=== PATIENT | male | born 1960 | race Caucasian/White ===

== ENCOUNTER 2018-02-10 16:25 | Inpatient (IN) | payer MEDICARE, MEDICAID ==
[2018-02-10] MEDS ORDERED: Ondansetron ODT 4 MG TAB SL PRN (16:30)
[2018-02-10] MEDS ORDERED: Ondansetron HCl/PF 4 MG/2 ML Vial IVP PRN (16:30)
[2018-02-10] MEDS ORDERED: Sodium Chloride 0.9% 1,000 ML IV SCH (16:30)
[2018-02-10 17:24] LABS: #Eosinphils 0.2 thou/uL (0.0-0.7); #Lymphocytes 0.9 thou/uL (1.20-3.40); #Monocytes 0.3 thou/uL (0.11-0.59); #Neutrophils 3.8 thou/uL (1.40-6.50); %Basophils 0.6 % (0.0-1.0); %Lymphocytes 17.7 % (21.0-51.0); %Monocytes 5.9 % (0.0-10.0); %Neutrophils 71.9 % (42.0-75.0); Hemoglobin 7.5 g/dL (14.0-18.0); Mean Corpuscular HGB CONC 30.8 g/dL (32.0-36.0); Mean Corpuscular Hemoglobin 29.4 pg (27.0-31.0); Mean Corpuscular Volume 95.6 fl (80.0-94.0); Mean Platelet Volume 8.7 fL (7.4-10.4); Platelet Count 149 thou/uL (130-400); RBC Distribution Width 16.6 % (11.5-14.5); Red Blood Cell (RBC) Count 2.54 mill/uL (4.70-6.10); White Blood Cell (WBC) Count 5.3 thou/uL (4.8-10.8)
[2018-02-10] MEDS ORDERED: Piperacillin/Tazobactam 4.5 GM VIAL ONE (17:32)
[2018-02-10 17:48] LABS: CKMB 2.9 ng/mL (0-6.6); Troponin I Less than 0.010 ng/mL (< 0.028)
[2018-02-10 17:52] LABS: ALT (SGPT) 8 U/L (8-55); AST (SGOT) 8 U/L (5-34); Alkaline Phosphatase 119 U/L (40-150); Anion Gap 15 mmol/L (10-20); BUN (Urea Nitrogen) 51 mg/dL (8.4-25.7); Bilirubin, Total 0.6 mg/dL (0.2-1.2); CK (CPK) 62 U/L (30-200); Calc. Creatinine Clearance 0 mL/min (70-130); Calcium 7.9 mg/dL (7.8-10.44); Carbon Dioxide 27 mmol/L (22-29); Chloride 100 mmol/L (98-107); Estimated GFR-MDRD 17; Globulin 3.2 g/dL (2.4-3.5); Glucose 155 mg/dL (70-105); Lipase 15 U/L (8-78); Potassium 4.7 mmol/L (3.5-5.1); Protein, Total 6.2 g/dL (6.0-8.3); Sodium 137 mmol/L (136-145)
--- NOTE | 2018-02-10 17:56 | RAD ---
PORTABLE AP CHEST X-RAY 02/10/18 HISTORY: Hypotension. COMPARISON: 07/04/17 FINDINGS: Patient is rotated to the left accentuating the cardiac silhouette and mediastinal structures. Howeve r, the cardiac silhouette does appear enlarged. This does result in suboptimal evaluation of the left lung base. There are linear and patchy densities at the right lung base which could be related to at electasis or developing area of pneumonitis. No obvious pleural effusion is appreciated. Vascular ana cifications seen in the thoracic aorta. No other interval change. IMPRESSION: 1. Linear and patchy parenchymal densities at the right lung base which may be related to atelec tasis, but a developing area of pneumonitis could not be entirely excluded. 2. Cardiomegaly. POS: [facility]
[2018-02-10 21:56] VITALS: BMI 59.7
[2018-02-10] MEDS ORDERED: Acetaminophen 650 MG Suppository PR PRN (22:15)
[2018-02-10] MEDS ORDERED: VANCOMYCIN/ RENALLY ADJUST ANTIBIOTICS IVPB PRN (22:21)
[2018-02-10] MEDS ORDERED: Vancomycin HCl 1 GM in Premix Bag 1 BAG IVPB SCH ×2 (22:30→22:45)
[2018-02-10] MEDS: Sodium Chloride 0.9% 1,000 ML IV SCH (22:44)
[2018-02-10] MEDS ORDERED: Vancomycin HCl 750 MG in Sodium Chloride 0.9% 250 ML 250 ML IVPB SCH (22:45)
[2018-02-10] MEDS ORDERED: Vancomycin HCl 1.25 GM in Sodium Chloride 0.9% 250 ML 250 ML IVPB SCH (22:45)
[2018-02-10] MEDS ORDERED: Vancomycin HCl 1.5 GM in Sodium Chloride 0.9% 250 ML 300 ML IVPB SCH (22:45)
[2018-02-10] MEDS ORDERED: HOLD VANCOMYCIN FOR LEVEL >20 FS SCH (22:45)
[2018-02-10 23:21] LABS: Bilirubin Small (Negative); Blood, Urine Negative (Negative); Clarity CLOUDY (Clear); Glucose, Urine (Dipstick) Negative (Negative); Leukocyte Trace (Negative); Nitrite Negative (Negative); Protein, Urine (Dipstick) 100 mg/dL (Neg-Trace); Specific Gravity, Urine 1.018 (1.002-1.036); Urobilinogen 0.2 mg/dL (0.2-1.0)
--- NOTE | 2018-02-10 23:21 | HP ---
PRIMARY CARE PROVIDER: Carmela Rutledge NP CHIEF COMPLAINT: Hypotension. HISTORY OF PRESENT ILLNESS: Mr. Lyons is a pleasant 57-year-old gentleman who was seen at [facility] on 02/10/2018. He was hospitalized at [facility] from 02/09/2018 to . He was discharged from [facility] earlier today. He went for dialysis to [facility]. The re, he was found to be hypotensive. He was also lethargic. He was therefore sent to the emergency r oom. Mr. Lyons is currently sleepy, but arousable, answering questions. He reports feeling generalized we akness, but denies any chest pain, shortness of breath, fevers or chills. He denies any nausea or vo miting. He reports feeling better after coming to this facility. REVIEW OF SYSTEMS: The following complete review of systems was negative, unless otherwise mentioned in the HPI or below: Constitutional: Weight loss or gain, ability to conduct usual activities. Sk in: Rash, itching. Eyes: Double vision, pain. ENT/Mouth: Nose bleeding, neck stiffness, pain, te nderness. Cardiovascular: Palpitations, dyspnea on exertion, orthopnea. Respiratory: Shortness of breath, wheezing, cough, hemoptysis, fever, or night sweats. Gastrointestinal: Poor appetite, abdo russel pain, heartburn, nausea, vomiting, constipation, or diarrhea. Genitourinary: Urgency, frequen cy, dysuria, nocturia. Musculoskeletal: Pain, swelling. Neurologic/Psychiatric: Anxiety, depressi on. Allergy/Immunologic: Skin rash, bleeding tendency. Please see my HPI for pertinent positives a nd negatives. All other review of systems reviewed and negative except as mentioned in the HPI. PAST MEDICAL HISTORY: Significant for coronary artery disease, congestive heart failure, myocardial infarction, atrial fibrillation, diabetes mellitus, hypothyroidism, hypertension, osteoarthritis, end -stage renal disease on dialysis. PAST SURGICAL HISTORY: Significant for appendectomy, tonsillectomy, left leg surgery, shunt to right arm and AV fistula in the right arm. SOCIAL HISTORY: The patient denies tobacco use, alcohol use or recreational drug use. FAMILY HISTORY: Significant for diabetes mellitus. ALLERGIES: ACCUPRIL. CURRENT MEDICATIONS: Tylenol #3 p.r.n., apixaban 2.5 mg 2 times a day, atorvastatin 20 mg daily, Cor eg 12.5 mg 2 times a day, ferrous sulfate 325 mg 2 times a day, gabapentin 300 mg 3 times a day, hydr alazine 25 mg 3 times a day, Lantus insulin 5 units daily, isosorbide mononitrate 60 mg daily, Nystat in powder topically 2 times a day, Protonix 40 mg daily, ropinirole 4 mg daily, sevelamer 800 mg 3 ti mes a day. PHYSICAL EXAMINATION: GENERAL: Mr. Lyons is sleepy, but arousable, not in acute distress. He is morbidly obese, with a BM I of 59.7. VITAL SIGNS: Blood pressure is 111/66, pulse is 76. He is breathing at a rate of 20 and saturating 100% on 2 liters of oxygen per nasal cannula. EYES: No scleral icterus. No clinical pallor. ENT: Moist mucosal membranes, no oropharyngeal erythema or exudates. NECK: Supple, nontender, normal range of movement. Trachea is midline. RESPIRATORY: Accessory muscles of breathing are not active. Chest wall movements are symmetric bila terally. LUNGS: Clear to auscultation without wheeze, rhonchi or crepitations. CARDIOVASCULAR: S1 and S2 are heard, regular. LUNGS: Peripheral pulses palpable. No carotid bruit, no pericardial rub. ABDOMEN: Soft, nontender, distended, bowel sounds heard. NEUROLOGIC: Full neurologic examination is not possible secondary to patient's lethargic status. Pu pils are reactive to light, equal. There is no facial droop. He is moving all 4 extremities. MUSCULOSKELETAL: Moving all 4 extremities. SKIN: He has bilateral buttock wounds as well as a wound over his right thigh. LYMPHATIC: No cervical lymphadenopathy. PSYCHIATRIC: Normal mood, patient is oriented to person and place, not to time. LABORATORY DATA: Mr. Lyons' labs and investigations were reviewed. I reviewed his electrocardiogram , which shows atrial fibrillation, no ST changes to suggest an acute coronary syndrome. I also revie wed his chest x-ray, which does not show any pulmonary infiltrates. He has a normal white count, mac rocytic anemia with hemoglobin 7.5, normal platelet count, normal electrolytes, elevated blood urea n itrogen of 51, elevated creatinine of 3.59, decreased albumin of 3.0, otherwise unremarkable liver pr ofile, normal troponin I, normal lactic acid and elevated BNP of 1239. ASSESSMENT AND PLAN: Mr. Lyons is a pleasant 57-year-old gentleman who was seen at [facility] on 02/10/2018. His problem list includes: 1. Hypotension: Etiology unclear, he has responded well to intravenous fluids. We will admit him t o the hospital and continue to monitor. His die baker was concerned regarding his thigh wound cau sing infection. For now, we will continue Zosyn and vancomycin, [facility]. 2. End-stage renal disease, on dialysis. Nephrology service has been consulted by Emergency Room ph ysician for maintenance hemodialysis. 3. Diabetes mellitus. Start Accu-Cheks, insulin sliding scale. 4. Atrial fibrillation. Continue carvedilol and apixaban. 5. Hypothyroidism: Continue Synthroid. 6. Hypertension: Monitor vital signs, titrate antihypertensives as needed. LEVEL OF RISK: High. LEVEL OF COMPLEXITY: High.
[2018-02-10 23:23] LABS: Bacteria/HPF None Seen HPF (None Seen); Hyaline Casts/LPF 7-10 HYALINE CAST LPF (0-3 Hyaline); Pathc Cast-AUWi Flag 1.45 (0-2.49); RBC/HPF 0-3 HPF (0-3); Squamous Epithelial 0-3 HPF (0-3); Yeast-AUWi Flag 50.2 (0-25.0)
[2018-02-10] MEDS ORDERED: Piperacillin/Tazobactam 4.5 GM in Sodium Chloride 0.9% 100 ML IVPB SCH (23:59)
[2018-02-11] MEDS: Acetaminophen 325 MG TAB PO PRN ×3 (00:35→17:16)
[2018-02-11] MEDS: Piperacillin/Tazobactam 2.25 GM in Sodium Chloride 0.9% 100 ML IVPB SCH ×3 (01:31→17:17)
[2018-02-11 05:17] LABS: Anion Gap 13 mmol/L (10-20); BUN (Urea Nitrogen) 53 mg/dL (8.4-25.7); Calc. Creatinine Clearance 54 mL/min (70-130); Calcium 7.9 mg/dL (7.8-10.44); Carbon Dioxide 26 mmol/L (22-29); Chloride 102 mmol/L (98-107); Estimated GFR-MDRD 16; Glucose 137 mg/dL (70-105); Potassium 4.8 mmol/L (3.5-5.1); Sodium 136 mmol/L (136-145)
[2018-02-11 05:33] LABS: Eosinophils 1 % (0-10); Hypochromia SLIGHT = 6-15 cells (100X) (0-5/hpf); Lymphocytes 23 % (21-51); MDiff Complete? YES; Mean Corpuscular HGB CONC 29.7 g/dL (32.0-36.0); Mean Corpuscular Hemoglobin 28.8 pg (27.0-31.0); Metamyelocyte 2 % (0-0); Monocytes 6 % (0-10); Neutrophil 65 % (42-75); PLT Morphology Comment Appears Adequate; Platelet Count 137 thou/uL (130-400); Polychromasia SLIGHT = 2-3 cells (100X) (0-2/hpf); Reactive Lymphocytes 3 % (0-10); Red Blood Cell (RBC) Count 2.43 mill/uL (4.70-6.10); White Blood Cell (WBC) Count 5.6 thou/uL (4.8-10.8)
[2018-02-11 10:39] LABS: Vancomycin, Random 7.3 ug/mL (See Comment)
--- NOTE | 2018-02-11 14:35 | PDOC.PN ---
- Subjective Encounter Start Date: 02/11/18 Encounter Start Time: 13:00 Patient Is seen today at [facility], he finished his Dialysis today, his BP are stable , pt says he feels dizzy at Dialysis two days. ago. - Objective MAR Reviewed: Yes Vital Signs & Weight: Vital Signs (12 hours) Temp Pulse Resp BP Pulse Ox 02/11/18 08:00 98.1 F 85 19 100 02/11/18 07:14 100 02/11/18 07:13 98.1 F 85 19 160/64 H 100 02/11/18 04:12 98.0 F 77 20 128/68 92 L Weight Weight 404 lb 6 oz I&O: 02/10/18 02/11/18 02/12/18 06:59 06:59 06:59 Intake Total 1233 Output Total 100 Balance 1133 Result Diagrams: 02/11/18 04:24 02/11/18 04:24 Additional Labs: Accuchecks 02/11/18 02/11/18 14:18 05:58 POC Glucose 153 H 126 H Radiology Reviewed by me: Yes Phys Exam - Physical Examination HEENT: PERRLA, moist MMs Neck: no nodes, no JVD Respiratory: wheezing present crackles bilaterally. Cardiovascular: RRR, no significant murmur Gastrointestinal: soft, non-tender Musculoskeletal: no edema, pulses present Neurological: non-focal, normal sensation Lymphatic: no nodes Psychiatric: normal affect, A&O x 3 Skin: no rash, normal turgor Dx/Plan (1) Hypotension due to blood loss Code(s): I95.89 - OTHER HYPOTENSION Status: Acute Comment: Likely from Dialysis, No source of Bleeding noted, he hasLow HB dropping. BP are more stbale today. (2) ESRD (end stage renal disease) on dialysis Code(s): N18.6 - END STAGE RENAL DISEASE; Z99.2 - DEPENDENCE ON RENAL DIALYSIS Status: Acute Comment: had HD today, next on tuesday, Dr. Mejia following. (3) Anemia Code(s): D64.9 - ANEMIA, UNSPECIFIED Status: Acute Qualifiers: Anemia type: iron deficiency Comment: Likely iron Deficiency and from ESRD, will check iron levels and Stool occult. Will do PRBC at HD. (4) Chronic systolic heart failure Code(s): I50.22 - CHRONIC SYSTOLIC (CONGESTIVE) HEART FAILURE Status: Chronic Comment: Stbale, no exacerbation, pt has ACEI allergy, will continue coreg. (5) Gout Code(s): M10.9 - GOUT, UNSPECIFIED Status: Chronic Comment: No Exacerbation noted. (6) Lymphedema Code(s): I89.0 - LYMPHEDEMA, NOT ELSEWHERE CLASSIFIED Status: Chronic (7) Obesity hypoventilation syndrome Code(s): E66.2 - MORBID (SEVERE) OBESITY WITH ALVEOLAR HYPOVENTILATION Status : Chronic Comment: CPAP at night. - Plan cont current plan of care, PT/OT, social group worker, respiratory therapy, incentive spirometry, out of bed/ambulate, DVT proph w/SCDs * . - Discharge Day Encounter end time: 13:35 Review of Systems - Review of Systems Eyes: negative: Pain, Vision Change, Conjunctivae Inflammation, Eyelid Inflammation, Redness, Other ENT: negative: Ear Pain, Ear Discharge, Nose Pain, Nose Discharge, Nose Congestion, Mouth Pain, Mouth Swelling, Throat Pain, Throat Swelling, Other Respiratory: negative: Cough, Dry, Shortness of Breath, Hemoptysis, SOB with Excertion, Pleuritic Pain, Sputum, Wheezing Cardiovascular: negative: chest pain, palpitations, orthopnea, paroxysmal nocturnal dyspnea, edema, light headedness, other Gastrointestinal: negative: Nausea, Vomiting, Abdominal Pain, Diarrhea, Constipation, Melena, Hematochezia, Other Genitourinary: negative: Dysuria, Frequency, Incontinence, Hematuria, Retention , Other Musculoskeletal: negative: Neck Pain, Shoulder Pain, Arm Pain, Back Pain, Hand Pain, Leg Pain, Foot Pain, Other - Medications/Allergies Allergies/Adverse Reactions: Allergies Allergy/AdvReac Type Severity Reaction Status Date / Time quinapril HCl [From Accupril] Allergy Verified 07/24/16 00:45 Medications: Current Medications Acetaminophen (Tylenol) 650 mg PO Q4H PRN PRN Reason: Headache/Fever or Pain Last Admin: 02/11/18 09:09 Dose: 650 mg Acetaminophen (Tylenol) 650 mg [place] Q4H PRN PRN Reason: Headache/Fever or Pain Sodium Chloride (Normal Saline 0.9%) 1,000 mls @ 70 mls/hr IV .[id number] Last Admin: 02/10/18 22:44 Dose: Not Given Piperacillin Sod/Tazobactam (Sod 2.25 gm/ Sodium Chloride) 100 mls @ 200 mls/ hr IVPB 0200,1000,1800 [facility] Last Admin: 02/11/18 09:10 Dose: 100 mls Vancomycin HCl 1.5 gm/ Sodium (Chloride) 300 mls @ 200 mls/hr IVPB WILLCALL JIMENEZ Vancomycin HCl 1.25 gm/ Sodium (Chloride) 250 mls @ 166.667 mls/hr IVPB WILLCALL [facility] Vancomycin HCl 1 gm/ Device 200 mls @ 200 mls/hr IVPB WILLCALL JIMENEZ Vancomycin HCl 750 mg/ Sodium (Chloride) 250 mls @ 250 mls/hr IVPB WILLCALL [facility] Miscellaneous Medication (Pharmacy To Dose) 1 each IVPB PRN PRN PRN Reason: Pharmacy to dose Hold Vancomycin For (Level >20) 0 each FS .AT DIALYSIS [facility] Sodium Chloride (Flush - Normal Saline) 10 ml IVF PRN PRN PRN Reason: Saline Flush Sodium Chloride (Flush - Normal Saline) 10 ml IVF Q12HR [facility] Last Admin: 02/11/18 09:09 Dose: 10 ml
[2018-02-11] MEDS: Sodium Chloride 0.9% 1,000 ML IV SCH (14:52)
[2018-02-11] MEDS ORDERED: Epoetin (NON-ESRD) 20,000 UNITS/ML ML IVP SCH (16:45)
[2018-02-11] MEDS: Carvedilol 6.25 MG TAB PO SCH (17:05)
[2018-02-11] MEDS: Gabapentin 100 MG CAP PO SCH ×2 (17:05→20:48)
[2018-02-11] MEDS: Apixaban 5 MG TAB PO SCH (20:48)
[2018-02-11] MEDS ORDERED: Atorvastatin Calcium 20 MG TAB PO SCH (21:00)
[2018-02-11] MEDS ORDERED: rOPINIRole HCl 2 MG TAB PO SCH (21:00)
[2018-02-12] MEDS: Piperacillin/Tazobactam 2.25 GM in Sodium Chloride 0.9% 100 ML IVPB SCH ×2 (02:37→10:39)
[2018-02-12 05:13] LABS: #Eosinphils 0.3 thou/uL (0.0-0.7); #Monocytes 0.5 thou/uL (0.11-0.59); #Neutrophils 3.6 thou/uL (1.40-6.50); %Basophils 0.4 % (0.0-1.0); %Eosinophils 4.8 % (0.0-10.0); %Lymphocytes 18.9 % (21.0-51.0); %Monocytes 8.7 % (0.0-10.0); %Neutrophils 67.2 % (42.0-75.0); Hemoglobin 7.4 g/dL (14.0-18.0); Mean Corpuscular HGB CONC 31.2 g/dL (32.0-36.0); Mean Corpuscular Hemoglobin 30.3 pg (27.0-31.0); Mean Corpuscular Volume 96.8 fl (80.0-94.0); Mean Platelet Volume 8.9 fL (7.4-10.4); Platelet Count 122 thou/uL (130-400); RBC Distribution Width 16.8 % (11.5-14.5); Red Blood Cell (RBC) Count 2.45 mill/uL (4.70-6.10); White Blood Cell (WBC) Count 5.3 thou/uL (4.8-10.8)
[2018-02-12 05:35] LABS: Anion Gap 15 mmol/L (10-20); BUN (Urea Nitrogen) 41 mg/dL (8.4-25.7); Calc. Creatinine Clearance 56 mL/min (70-130); Calcium 8.4 mg/dL (7.8-10.44); Carbon Dioxide 25 mmol/L (22-29); Chloride 103 mmol/L (98-107); Estimated GFR-MDRD 17; Glucose 139 mg/dL (70-105); Potassium 4.6 mmol/L (3.5-5.1); Sodium 138 mmol/L (136-145)
[2018-02-12] MEDS ORDERED: Levothyroxine Sodium 75 MCG TAB PO SCH (06:00)
[2018-02-12] MEDS ORDERED: Nystatin Powder 15 GM BOT TOP SCH (09:00)
[2018-02-12] MEDS: Carvedilol 6.25 MG TAB PO SCH ×2 (10:36→17:42)
[2018-02-12] MEDS: Gabapentin 100 MG CAP PO SCH ×2 (10:37→17:42)
[2018-02-12] MEDS: Apixaban 5 MG TAB PO SCH (10:37)
--- NOTE | 2018-02-12 11:42 | CON ---
DATE OF CONSULTAITON: 02/12/2018 Following encompassed 70 minutes of time. Of that time, greater than 50% was spent either with the p atient and/or in the patient's unit in the hospital CONSULTING PHYSICIAN: Hospitalist group. REASON FOR CONSULTATION: IMCU placement. HISTORY OF PRESENT ILLNESS: Mr. Lyons is a 57-year-old male who was sent over from his dialysis unit a day before yesterday with low blood pressure that has corrected without any intervention. He feel s better and wants to go home, because he says he is expecting a delivery of medical equipment at [facility] tomorrow. PAST MEDICAL HISTORY: 1. Coronary artery disease. 2. Congestive heart failure. 3. Myocardial infarction. 4. Atrial fibrillation. 5. Diabetes mellitus. 6. Hypothyroidism. 7. Hypertension. 8. Suspected obstructive sleep apnea, although he has never had a study. 9. Osteoarthritis. 10. End-stage renal disease. PAST SURGICAL HISTORY: 1. Appendectomy. 2. Tonsillectomy. 3. AV fistula in the right arm. 4. Left leg surgery. SOCIAL HISTORY: Nonsmoker, does not consume alcohol, does not use illicit drugs. He lives in [place], in an apartment. ALLERGIES: ACCUPRIL. FAMILY MEDICAL HISTORY: Remarkable for diabetes. MEDICATIONS PRIOR TO ADMISSION: Tylenol, apixaban, atorvastatin, Coreg, iron sulfate, gabapentin, hy dralazine, Lantus insulin, isosorbide mononitrate, nystatin, Protonix, ropinirole, and sevelamer. REVIEW OF SYSTEMS: Twelve point review of systems otherwise negative. PHYSICAL EXAMINATION: VITAL SIGNS: Temperature 98.4, pulse 81, respiration 20, O2 sat 100% on 3 liters, blood pressure 120 /75. GENERAL: He is awake, alert, in no distress, obese. HEENT: Unremarkable. NECK: Without adenopathy or JVD. LUNGS: Clear to auscultation without wheezing or rhonchi. CARDIOVASCULAR: S1, S2 regular. ABDOMEN: Soft, obese, nontender, nondistended. EXTREMITIES: No clubbing, cyanosis, or edema. LABORATORY DATA: White blood cell count 5.3, hematocrit 23.7, platelet count 122. Sodium 130, potas sium 4.6, chloride 103, CO2 25, BUN 41, creatinine 3.6, glucose 139. ASSESSMENT: 1. Transient hypotension that responded well to fluids. 2. Chronic medical problems above including atrial fibrillation, diabetes mellitus, and end-stage re nal disease. PLAN: The patient can go out to the medical floor. I suspect he can probably be discharged to home. Since there is no real evidence of sepsis, I would advocate discontinuing his antibiotics if okay w ith all. No further pulmonary recommendations. We will sign off. Please recall if further assistan ce needed.
--- NOTE | 2018-02-12 14:35 | DIS ---
DATE OF ADMISSION: 02/10/2018 DATE OF DISCHARGE: 02/12/2018 ADMITTING DIAGNOSIS: Hypotension. DISCHARGE DIAGNOSIS: Hypotension secondary to end-stage renal disease. SECONDARY DIAGNOSES: 1. Anemia of chronic kidney disease. 2. Type 2 diabetes mellitus. 3. Atrial fibrillation. 4. Hypothyroidism. HISTORY OF PRESENT ILLNESS AND HOSPITAL COURSE: In brief, this is a 57-year-old white male living at home by himself with home health, who is completely bedbound and uses a scooter. The patient was fo und to be hypotensive at the Dialysis Center at [facility] and was also lethargic, so the patient was bro ught to the ER for further evaluation. When he arrived in the ER, he did not have any chest pain. N o nausea, no vomiting, no diarrhea, no constipation. His blood pressures were low around 90/50s and it was closely monitored overnight with serial troponins, which were negative. An EKG was showing at rial fibrillation with no ST changes and there was no evidence of any pulmonary infiltrates. He was given a fluid bolus in the ER of 250 mL and was closely monitored as he has a history of end-stage re nal disease. The following day, Nephrology was consulted and they did the hemodialysis. His blood p ressures remained stable. He was having anemia with hemoglobin of 7, but the following day, his hemo globin did come up to 7.4 and the patient was on Epogen and iron medications during dialysis. The pa tieiris was stable on the day of discharge and was discharged home in stable condition. PHYSICAL EXAMINATION: On date of discharge: VITAL SIGNS: Blood pressures are 109/86, heart rate is 18, and saturation 96%. GENERAL: The patient is moderately built, morbidly obese. He is alert and oriented, does not appear to be in any acute distress. HEENT: Atraumatic, normocephalic. PERRLA. Extraocular muscles were intact. CARDIOVASCULAR: S1, S2 normal. No murmurs, rubs or gallops. LUNGS: Bilateral air entry was equal. No wheezing, no crackles. ABDOMEN: Distended, nontender, no guarding, no rebound tenderness. DISCHARGE MEDICATIONS: The patient is on insulin 5 units subcutaneously at bedtime, Eliquis 2.5 mg p .o. b.i.d., atorvastatin 20 mg p.o. at bedtime, Coreg 12.5 mg p.o. b.i.d., gabapentin 100 mg p.o. t.i .d., isosorbide mononitrate 60 mg p.o. daily, levothyroxine 75 mcg p.o. daily. DISCHARGE INSTRUCTIONS: Continue activity as tolerated. Advised to follow up with primary care phys ician in 1-2 weeks. Advised to follow up with dialysis schedule. Advised to continue the renal diet and avoid excess fluids. I spent 35 minutes with this patient on the day of discharge.
[2018-02-12 15:09] VITALS: TEMP 97.9
--- NOTE | 2018-02-12 15:42 | PRG ---
DATE OF SERVICE: 02/12/2018 NEPHROLOGY PROGRESS NOTE SUBJECTIVE: Patient was seen and examined at bedside and overnight events noted. Patient denies any shortness of breath or chest pain or palpitation. No history of nausea or vomiting or diarrhea or f ever or chills or cramps. OBJECTIVE: GENERAL: This is a well-built male in no apparent distress. VITAL SIGNS: Temperature 98.3, pulse 84, respiratory rate 18, blood pressure 109/86. HEENT: Atraumatic, normocephalic. Oral mucosa is moist. NECK: Supple. CARDIOVASCULAR: S1, S2 heard. Rate and rhythm regular. RESPIRATORY: Clear to auscultation. GASTROINTESTINAL: Abdomen is soft. MUSCULOSKELETAL: No tenderness. No edema. DERMATOLOGIC: No skin rash. NEUROLOGIC: Alert and awake and oriented x3. No focal neurologic deficits. Moving all the extremiti es. PSYCHIATRIC: Mood and affect normal. LABORATORY DATA: Potassium is 4.2, BUN 41, creatinine 3.6. ASSESSMENT AND PLAN: 1. End-stage renal disease on hemodialysis. Continue on dialysis Tuesday, , and Tuesday. 2. Edema, controlled. 3. Hypertension. 4. Anemia. Monitor hemoglobin. We will have ASA as tolerated. Plan is to continue on Epogen as tolerated. Monitor hemoglobin, transfuse if less than 7.
--- NOTE | 2018-02-12 16:39 | CON ---
DATE OF CONSULTATION: 02/11/2018 NEPHROLOGY CONSULT CONSULTING PHYSICIAN: Dr. Newby. REASON FOR CONSULT: End-stage renal disease, evaluation and care. REASON FOR ADMISSION: Hypotension, stable. HISTORY OF PRESENT ILLNESS: This is a 57-year-old male who was recently discharged from [facility] with history of coronary artery disease, congestive heart failure, type 2 diabetes, hypertension, end-stage renal disease, who came to the hospital with hypotension. Patient was at dialysis, was fo und to have hypotension and sent over here. Patient also had a dizzy spell. No fever or chills. No nausea, vomiting, no chest pain reported. PAST MEDICAL HISTORY: Positive for coronary artery disease, congestive heart failure, atrial fibrill ation, type 2 diabetes, hypothyroidism, hypertension, osteoarthritis, end-stage renal disease. PAST SURGICAL HISTORY: Appendectomy, tonsillectomy, left leg surgery, AV fistula placement. HOME MEDICATIONS: Tylenol No. 3, , atorvastatin, Coreg, ferrous sulfate, gabapentin, hydralazi ne, Lantus, nystatin, Protonix, propranolol, . ALLERGIES: ACCUPRIL. SOCIAL HISTORY: No smoking, alcohol, or illicit drug abuse. FAMILY HISTORY: Positive for diabetes. REVIEW OF SYSTEMS: The following complete review of systems was negative, unless otherwise mentioned in the HPI or below: Constitutional: Weight loss or gain, ability to conduct usual activities. Sk in: Rash, itching. Eyes: Double vision, pain. ENT/Mouth: Nose bleeding, neck stiffness, pain, te nderness. Cardiovascular: Palpitations, dyspnea on exertion, orthopnea. Respiratory: Shortness of breath, wheezing, cough, hemoptysis, fever, or night sweats. Gastrointestinal: Poor appetite, abdo russel pain, heartburn, nausea, vomiting, constipation, or diarrhea. Genitourinary: Urgency, frequen cy, dysuria, nocturia. Musculoskeletal: Pain, swelling. Neurologic/Psychiatric: Anxiety, depressi on. Allergy/Immunologic: Skin rash, bleeding tendency. PHYSICAL EXAMINATION: GENERAL: Morbidly obese male in no apparent distress. VITAL SIGNS: Temperature 98.1, pulse 85, respiratory rate 19, and blood pressure . HEENT: Atraumatic, normocephalic. Oral mucosa is moist. NECK: Supple. HEART: S1 and S2 heard. Rate and rhythm regular. RESPIRATORY: Clear. GI: Abdomen is soft. MUSCULOSKELETAL: 1+ edema. DERMATOLOGIC: No skin rash. NEUROLOGIC: Alert, awake. PSYCHIATRIC: Normal mood and affect. LABORATORY DATA: Hemoglobin is 7.0. Potassium is 4.8, BUN is 53, creatinine is 3.8. ASSESSMENT AND PLAN: 1. End-stage renal disease. We will continue on hemodialysis as tolerated. 2. Anemia. We will give Epogen. 3. Edema, controlled. 4. Hypertension, stable. Plan is to start on Epogen, we will continue on dialysis as tolerated.
[2018-02-12 17:42] VITALS: BP 105/64
[2018-02-13] MEDS ORDERED: Epoetin (ESRD) 10,000 UNITS/ML VIAL IVP SCH (09:00)
[2018-02-13] MEDS ORDERED: Epoetin (NON-ESRD) 20,000 UNITS/ML ML IVP SCH (09:00)
[2018-02-14] MEDS ORDERED: Epoetin (ESRD) 10,000 UNITS/ML VIAL IVP SCH (09:00)
== END 2018-02-12 19:35 | disposition home or self-care (01) | DRG 314 ==
LOC: ERS 16:25 → IMCU/EMU 18:16
PROVIDERS: ADMIT Family Medicine; ATTEND Family Medicine
PROC: 5A1D70Z Performance of Urinary Filtration, Intermittent, Less than 6 Hours Per Day (ICD-10-PCS; principal; 2018-02-11)
DX: I95.89 Other hypotension (principal); N18.6 End stage renal disease; I13.2 Hypertensive heart and chronic kidney disease with heart failure and with stage 5 chronic kidney disease, or end stage renal disease; Z68.43 Body mass index [BMI] 50.0-59.9, adult; I50.22 Chronic systolic (congestive) heart failure; E11.22 Type 2 diabetes mellitus with diabetic chronic kidney disease; E66.01 Morbid (severe) obesity due to excess calories; E03.9 Hypothyroidism, unspecified; I25.10 Atherosclerotic heart disease of native coronary artery without angina pectoris; I48.91 Unspecified atrial fibrillation; D63.1 Anemia in chronic kidney disease; M10.9 Gout, unspecified; I25.2 Old myocardial infarction; Z99.2 Dependence on renal dialysis; Z74.01 Bed confinement status; Z88.8 Allergy status to other drugs, medicaments and biological substances; Z79.4 Long term (current) use of insulin; Z79.899 Other long term (current) drug therapy
CPT/HCPCS: 36415; 36416; 71045; 80048; 80053; 80202; 81003; 81015; 82553; 83605; 83690; 83880; 84484; 85025; 86850; 86900; 86901; 87040; 87086; 90935; 93005; 96361; 96365; G0257; J2543; J3370; J7050

== ENCOUNTER 2018-02-20 12:17 | Emergency (ER) | payer MEDICARE, MEDICAID ==
--- NOTE | 2018-02-20 13:03 | RAD ---
PORTABLE CHEST 1 VIEW: Date: 02/20/18 Time: 1206 hours HISTORY: Dyspnea. FINDINGS/IMPRESSION: Comparison made with exam of 02/10/18. The heart is enlarged. No lobar consolidation, pneumothorax, suzanna pulmonary edema, or large effusion s are seen. POS: [facility]
[2018-02-20 13:18] LABS: #Basophils 0.1 thou/uL (0.0-0.2); #Eosinphils 0.2 thou/uL (0.0-0.7); #Monocytes 0.5 thou/uL (0.11-0.59); #Neutrophils 3.2 thou/uL (1.40-6.50); %Basophils 1.2 % (0.0-1.0); %Eosinophils 3.5 % (0.0-10.0); %Lymphocytes 20.7 % (21.0-51.0); %Monocytes 10.2 % (0.0-10.0); %Neutrophils 64.4 % (42.0-75.0); Hemoglobin 8.7 g/dL (14.0-18.0); Mean Corpuscular HGB CONC 31.2 g/dL (32.0-36.0); Mean Corpuscular Hemoglobin 29.7 pg (27.0-31.0); Mean Corpuscular Volume 95.2 fl (80.0-94.0); Mean Platelet Volume 9.3 fL (7.4-10.4); Platelet Count 152 thou/uL (130-400); RBC Distribution Width 17.5 % (11.5-14.5); Red Blood Cell (RBC) Count 2.91 mill/uL (4.70-6.10); White Blood Cell (WBC) Count 4.9 thou/uL (4.8-10.8)
[2018-02-20 13:48] LABS: ALT (SGPT) 8 U/L (8-55); AST (SGOT) 13 U/L (5-34); Albumin 3.4 g/dL (3.5-5.0); Alkaline Phosphatase 122 U/L (40-150); Anion Gap 21 mmol/L (10-20); BUN (Urea Nitrogen) 74 mg/dL (8.4-25.7); Bilirubin, Total 1.1 mg/dL (0.2-1.2); Calc. Creatinine Clearance 0 mL/min (70-130); Calcium 8.5 mg/dL (7.8-10.44); Carbon Dioxide 20 mmol/L (22-29); Chloride 102 mmol/L (98-107); Estimated GFR-MDRD 10; Globulin 3.7 g/dL (2.4-3.5); Glucose 113 mg/dL (70-105); Potassium 5.3 mmol/L (3.5-5.1); Protein, Total 7.1 g/dL (6.0-8.3); Sodium 138 mmol/L (136-145)
== END 2018-02-20 22:36 | disposition home or self-care (01) ==
LOC: ERS 12:17
DX: E87.70 Fluid overload, unspecified (principal); I87.8 Other specified disorders of veins; I25.10 Atherosclerotic heart disease of native coronary artery without angina pectoris; I11.0 Hypertensive heart disease with heart failure; I50.9 Heart failure, unspecified; I25.2 Old myocardial infarction; I48.91 Unspecified atrial fibrillation; E11.9 Type 2 diabetes mellitus without complications; E03.9 Hypothyroidism, unspecified; M19.90 Unspecified osteoarthritis, unspecified site; Z79.01 Long term (current) use of anticoagulants; Z79.4 Long term (current) use of insulin; Z79.899 Other long term (current) drug therapy
CPT/HCPCS: 36415; 71045; 80053; 83880; 85025; 90935; G0257

== ENCOUNTER 2018-05-08 07:17 | Day surgery (SDC) | payer MEDICARE, MEDICAID ==
[2018-05-08 08:14] VITALS: BP 161/59; TEMP 97.2; BMI 63.6
[2018-05-08] MEDS ORDERED: Heparin 1,000 UNITS/ML VIAL ONE (09:00)
[2018-05-08] MEDS ORDERED: Prevnar 13-Val Conj/PF 0.5 ML SYRINGE IM ONE (09:00)
--- NOTE | 2018-05-08 10:14 | SPC ---
RIGHT UPPER EXTREMITY DIALYSIS FISTULOGRAM: Date: 05/08/18 HISTORY: Renal failure. Poor function right upper extremity dialysis fistula. FLUORO TIME: 0.5 minutes. FINDINGS: After explaining the procedure and answering all questions, the right upper extremity was prepped and draped in the usual sterile fashion. Sterile technique, buffered local anesthesia, and a 22 gauge ne edle were used to carefully access the right upper extremity cephalic dialysis fistula at the level o f the antecubital fossa. A 4 Maltese micropuncture dilator and sheath were placed for imaging. Serial imaging shows a dilated and widely patent cephalic dialysis fistula. Good arterial flow throughout th e fistula. The arterial anastomosis is widely patent. A few small to moderate sized collaterals arise throughout the length of the cephalic fistula. The superior vena cava is patent. No evidence of stricture or filling defect. Sheath was removed and hemostasis obtained using direct pressure. The patient tolerated the procedure well and was returned in unchanged condition. IMPRESSION: Good flow and function right upper extremity cephalic dialysis fistula. No evidence of complication. POS: [facility]
== END 2018-05-08 09:10 | disposition home or self-care (01) ==
LOC: SPEC 07:17
PROVIDERS: ATTEND Internal Medicine Nephrology
PROC: B51WYZZ Fluoroscopy of Dialysis Shunt/Fistula using Other Contrast (ICD-10-PCS; principal; 2018-05-08)
DX: T82.590A Other mechanical complication of surgically created arteriovenous fistula, initial encounter (principal); D64.9 Anemia, unspecified; E11.9 Type 2 diabetes mellitus without complications; I11.0 Hypertensive heart disease with heart failure; I50.9 Heart failure, unspecified; E66.01 Morbid (severe) obesity due to excess calories; Z88.8 Allergy status to other drugs, medicaments and biological substances
CPT/HCPCS: 36901; J1644

== ENCOUNTER 2018-08-07 15:16 | Emergency (ER) | payer MEDICARE, MEDICAID ==
[2018-08-07 16:58] LABS: #Eosinphils 0.2 thou/uL (0.0-0.7); #Lymphocytes 0.9 thou/uL (1.20-3.40); #Monocytes 0.4 thou/uL (0.11-0.59); %Basophils 0.5 % (0.0-1.0); %Eosinophils 3.6 % (0.0-10.0); %Lymphocytes 16.6 % (21.0-51.0); %Monocytes 7.6 % (0.0-10.0); %Neutrophils 71.7 % (42.0-75.0); Hemoglobin 9.3 g/dL (14.0-18.0); Mean Corpuscular HGB CONC 30.5 g/dL (32.0-36.0); Mean Corpuscular Hemoglobin 29.5 pg (27.0-31.0); Mean Corpuscular Volume 96.6 fL (78.0-98.0); Mean Platelet Volume 9.4 fL (7.4-10.4); Platelet Count 140 thou/uL (130-400); RBC Distribution Width 15.2 % (11.5-14.5); Red Blood Cell (RBC) Count 3.15 mill/uL (4.70-6.10); White Blood Cell (WBC) Count 5.6 thou/uL (4.8-10.8)
[2018-08-07 17:14] LABS: ALT (SGPT) Less than 7 U/L (8-55); AST (SGOT) 5 U/L (5-34); Albumin 3.4 g/dL (3.5-5.0); Alkaline Phosphatase 80 U/L (40-150); Anion Gap 20 mmol/L (10-20); BUN (Urea Nitrogen) 82 mg/dL (8.4-25.7); Bilirubin, Total 0.9 mg/dL (0.2-1.2); CK (CPK) 56 U/L (30-200); Calc. Creatinine Clearance 0 mL/min (70-130); Calcium 8.8 mg/dL (7.8-10.44); Carbon Dioxide 23 mmol/L (22-29); Chloride 104 mmol/L (98-107); Estimated GFR-MDRD 7; Globulin 3.4 g/dL (2.4-3.5); Glucose 161 mg/dL (70-105); Potassium 5.4 mmol/L (3.5-5.1); Protein, Total 6.8 g/dL (6.0-8.3); Sodium 142 mmol/L (136-145)
[2018-08-07 17:26] LABS: CKMB 2.4 ng/mL (0-6.6); Troponin I 0.015 ng/mL (< 0.028)
[2018-08-07] MEDS ORDERED: Furosemide 40 MG TAB ONE (18:15)
--- NOTE | 2018-08-07 18:39 | RAD ---
CHEST ONE VIEW: HISTORY: Rectal bleeding. Weakness. COMPARISON: 02/20/2018 FINDINGS: The cardiac silhouette is magnified and enlarged. The pulmonary vasculature is engorged with patchy bilateral perihilar and bibasilar infiltrates. The patient is slightly rotated leftward. No evidenc e of pneumothorax. IMPRESSION: Cardiomegaly and pulmonary vascular congestion. Clinical correlation regarding other signs and sympt oms of congestive heart failure is required. POS: [facility]
== END 2018-08-07 19:36 | disposition home or self-care (01) ==
LOC: ERS 15:16
DX: K64.4 Residual hemorrhoidal skin tags (principal); I25.10 Atherosclerotic heart disease of native coronary artery without angina pectoris; I25.2 Old myocardial infarction; I48.91 Unspecified atrial fibrillation; E11.9 Type 2 diabetes mellitus without complications; E03.9 Hypothyroidism, unspecified; I11.0 Hypertensive heart disease with heart failure; I50.9 Heart failure, unspecified; Z79.4 Long term (current) use of insulin; Z79.899 Other long term (current) drug therapy
CPT/HCPCS: 36415; 71045; 80053; 82274; 82550; 82553; 84484; 85025; 93005

== ENCOUNTER 2018-08-17 19:16 | Inpatient (IN) | payer MEDICARE, MEDICAID ==
[2018-08-17 20:15] LABS: #Eosinphils 0.2 thou/uL (0.0-0.7); #Lymphocytes 0.9 thou/uL (1.20-3.40); #Monocytes 0.3 thou/uL (0.11-0.59); #Neutrophils 3.2 thou/uL (1.40-6.50); %Basophils 0.7 % (0.0-1.0); %Eosinophils 4.2 % (0.0-10.0); %Lymphocytes 18.9 % (21.0-51.0); %Monocytes 6.5 % (0.0-10.0); %Neutrophils 69.7 % (42.0-75.0); Hemoglobin 8.7 g/dL (14.0-18.0); Mean Corpuscular HGB CONC 30.3 g/dL (32.0-36.0); Mean Corpuscular Hemoglobin 29.4 pg (27.0-31.0); Mean Platelet Volume 9.4 fL (7.4-10.4); Platelet Count 133 thou/uL (130-400); RBC Distribution Width 15.4 % (11.5-14.5); Red Blood Cell (RBC) Count 2.96 mill/uL (4.70-6.10); White Blood Cell (WBC) Count 4.6 thou/uL (4.8-10.8)
[2018-08-17 20:35] LABS: ALT (SGPT) Less than 7 U/L (8-55); AST (SGOT) 4 U/L (5-34); Albumin 3.3 g/dL (3.5-5.0); Alkaline Phosphatase 78 U/L (40-150); Anion Gap 24 mmol/L (10-20); BUN (Urea Nitrogen) 123 mg/dL (8.4-25.7); Bilirubin, Total 0.5 mg/dL (0.2-1.2); Calc. Creatinine Clearance 0 mL/min (70-130); Calcium 8.4 mg/dL (7.8-10.44); Carbon Dioxide 21 mmol/L (22-29); Chloride 105 mmol/L (98-107); Estimated GFR-MDRD 6; Globulin 3.2 g/dL (2.4-3.5); Glucose 147 mg/dL (70-105); Potassium 5.6 mmol/L (3.5-5.1); Protein, Total 6.5 g/dL (6.0-8.3); Sodium 144 mmol/L (136-145)
[2018-08-17 20:38] LABS: CKMB 3.8 ng/mL (0-6.6); Troponin I 0.019 ng/mL (< 0.028)
[2018-08-17] MEDS ORDERED: Acetaminophen/Codeine 30-300mg Tablet ONE (22:00)
[2018-08-17] MEDS ORDERED: Ondansetron PF 4 MG/2 ML Vial IVP PRN (22:34)
[2018-08-17] MEDS ORDERED: Acetaminophen 325 MG TAB PO PRN (22:34)
[2018-08-17] MEDS ORDERED: Ondansetron ODT 4 MG TAB SL PRN (22:34)
[2018-08-17] MEDS ORDERED: Bisacodyl 5 MG TAB PO PRN (23:24)
[2018-08-17] MEDS ORDERED: HumaLOG 300 UNITS/3 ML VIAL SC PRN (23:27)
[2018-08-17] MEDS ORDERED: Dextrose 50% Abboject 50 ML SYRINGE SLOW IVP PRN (23:27)
[2018-08-17] MEDS ORDERED: Dextrose 5% in Water 1,000 ML IV PRN (23:27)
--- NOTE | 2018-08-18 02:50 | HP ---
DATE OF SERVICE: 08/17/2018 PRIMARY CARE PHYSICIAN: Raoul Watts M.D. CHIEF COMPLAINT: Shortness of breath. HISTORY OF PRESENT ILLNESS: Mr. Lyons is a pleasant 58-year-old gentleman who was seen at [facility] on 08/17/2018. He is a hemodialysis patient, followed by Dr. Fonseca. He reports that he missed dialysis for the last 2 or 3 weeks. He blames [facility] for not making it to dialysis sessions. He reports that he h as had generalized weakness over the last one week. He was also short of breath over the last 2 days . He denies any cough, fevers or chills. He denies any vomiting, but reports nausea. REVIEW OF SYSTEMS: All other systems reviewed and found to be negative. PAST MEDICAL HISTORY: Coronary artery disease, congestive heart failure, myocardial infarction, atri al fibrillation, diabetes mellitus, hypothyroidism, hypertension, osteoarthritis, and end-stage renal disease on hemodialysis. PAST SURGICAL HISTORY: Appendectomy, tonsillectomy, left leg surgery, shunt to right arm and AV fist cuong in the right arm. SOCIAL HISTORY: The patient denies tobacco use, alcohol use or recreational drug use. FAMILY HISTORY: Significant for diabetes mellitus. ALLERGIES: ACCUPRIL and QUINAPRIL. CURRENT MEDICATIONS: Gabapentin 100 mg 3 times a day, atorvastatin 20 mg daily, Fergon 240 mg daily, ropinirole 2 mg daily, Eliquis 2.5 mg daily, Coreg 37.5 mg 2 times a day, levothyroxine 75 mcg daily , Tylenol #3 as needed, pantoprazole 40 mg daily, sertraline 25 mg daily, sevelamer 800 mg 3 times a day, lorazepam 0.5 mg 2 times a day and tramadol 50 mg every 6 hours as needed. PHYSICAL EXAMINATION: GENERAL: On examination, Mr. Lyons is awake and alert, not in acute distress. He is morbidly obese, with a BMI of 64.7. VITAL SIGNS: Blood pressure is 115/77, pulse 90, respiratory rate 20, and oxygen saturation 94% on 2 liters of oxygen by nasal cannula. He is afebrile. EYES: No scleral icterus, no conjunctival pallor. ENT: Moist mucosal membranes, no oropharyngeal erythema or exudates. NECK: Supple, nontender, trachea is midline. RESPIRATORY: Accessory muscles of breathing are not active. Chest wall movements are symmetric bila terally. LUNGS: Reveals bibasilar crackles. CARDIOVASCULAR: S1 and S2 are heard, regular. Peripheral pulses palpable. No carotid bruit, no per icardial rub. ABDOMEN: Soft, nontender, bowel sounds heard, no hepatomegaly, no splenomegaly. NEUROLOGIC: Cranial nerves II-XII are intact, deep tendon reflexes are 2+. MUSCULOSKELETAL: Power is 5/5 in all 4 extremities. SKIN: No rashes or subcutaneous nodules. LYMPHATIC: No cervical lymphadenopathy. PSYCHIATRIC: Normal mood, normal affect, patient is oriented to person, place, and time. LABORATORY DATA: Mr. Lyons' labs and investigations were reviewed. He has not had an electrocardiog tiffanie or chest x-ray done in the emergency room. I will order both of those and follow up on them. He has leukopenia with 4600 white cells, it was 5600 on 08/07/2018, normocytic anemia with hemoglobin 8 .7, it was 9.3 on 08/07/2018, normal platelet count, normal sodium, elevated potassium of 5.6, elevat ed blood urea nitrogen of 123 and elevated creatinine of 9.56. Liver profile is unremarkable. [place] I is normal. ASSESSMENT AND PLAN: Mr. Lyons is a pleasant 58-year-old gentleman who was seen at [facility] on 08/18/2018. His problem list includes: 1. Volume overload: Mr. Lyons is presenting with volume overload, likely secondary to missed dialys is sessions. Nephrology service has been consulted by emergency room physician for opinion and help with management. 2. Shortness of breath: Most likely secondary to volume overload, we will check chest x-ray to rule out other entities such as pneumothorax, pneumonia, etc. 3. Coronary artery disease: The patient denies any chest pain. He has normal troponin I. I will c heck electrocardiogram. 4. Diabetes mellitus: We will start Accu-Cheks and insulin sliding scale. 5. Hypothyroidism: Continue Synthroid. 6. Hypertension: Blood pressure is controlled at this time. I will continue home medications, bella tor vital signs and titrate antihypertensives as needed. 7. End-stage renal disease on dialysis: Nephrology Service is being consulted. Many thanks for allowing me to participate in your patient's care. Please feel free to contact me wi th any questions or concerns. LEVEL OF RISK: Moderate. LEVEL OF COMPLEXITY: Moderate.
[2018-08-18] MEDS ORDERED: Nystatin Powder 15 GM BOT TOP PRN (05:10)
[2018-08-18 06:46] LABS: #Eosinphils 0.2 thou/uL (0.0-0.7); #Monocytes 0.4 thou/uL (0.11-0.59); #Neutrophils 3.2 thou/uL (1.40-6.50); %Basophils 0.4 % (0.0-1.0); %Lymphocytes 20.1 % (21.0-51.0); %Monocytes 8.4 % (0.0-10.0); %Neutrophils 67.2 % (42.0-75.0); Hemoglobin 8.8 g/dL (14.0-18.0); Mean Corpuscular HGB CONC 30.2 g/dL (32.0-36.0); Mean Corpuscular Hemoglobin 29.2 pg (27.0-31.0); Mean Corpuscular Volume 96.7 fL (78.0-98.0); Mean Platelet Volume 9.4 fL (7.4-10.4); Platelet Count 137 thou/uL (130-400); RBC Distribution Width 15.5 % (11.5-14.5); Red Blood Cell (RBC) Count 2.99 mill/uL (4.70-6.10); White Blood Cell (WBC) Count 4.7 thou/uL (4.8-10.8)
[2018-08-18 07:08] LABS: Anion Gap 21 mmol/L (10-20); BUN (Urea Nitrogen) 120 mg/dL (8.4-25.7); Calc. Creatinine Clearance 22 mL/min (70-130); Calcium 8.6 mg/dL (7.8-10.44); Carbon Dioxide 23 mmol/L (22-29); Chloride 104 mmol/L (98-107); Estimated GFR-MDRD 6; Glucose 127 mg/dL (70-105); Potassium 5.5 mmol/L (3.5-5.1); Sodium 142 mmol/L (136-145)
[2018-08-18] MEDS ORDERED: Polyethylene Glycol 3350 17 GM Packet PO PRN (08:55)
[2018-08-18] MEDS ORDERED: Heparin 5,000 UNITS/ML VIAL SC SCH (09:00)
[2018-08-18] MEDS ORDERED: Nystatin Powder 15 GM BOT TOP SCH (09:00)
[2018-08-18] MEDS ORDERED: Levothyroxine Sodium 88 MCG TAB PO SCH (09:00)
[2018-08-18] MEDS ORDERED: Lidocaine Patch Removal 1 EACH TOP SCH (09:30)
[2018-08-18] MEDS: Gabapentin 100 MG CAP PO SCH ×3 (10:24→20:57)
[2018-08-18] MEDS: Lidocaine 5% Patch TD SCH (10:24)
[2018-08-18] MEDS ORDERED: Apixaban 2.5 MG TAB PO SCH (10:30)
--- NOTE | 2018-08-18 11:34 | RAD ---
PORTABLE CHEST: History: Shortness of breath Comparison: 08-07-18 FINDINGS: Cardiomegaly. Mild vascular engorgement. IMPRESSION: No significant change from 08-07-18. POS: [facility]
[2018-08-18] MEDS ORDERED: Sevelamer Carbonate 800 MG TAB PO SCH (12:00)
[2018-08-18 12:02] LABS: HBSAB Concentration 3.29 mIU/mL; HBSAg Index 0.23 S/CO (0-0.99); Hep B Surf AB Non-Reactive (NonReactive); Hep B Surf Ag Non-Reactive S/CO (NonReactive)
--- NOTE | 2018-08-18 14:49 | PDOC.PN ---
- Subjective Encounter Start Date: 08/18/18 Encounter Start Time: 14:47 (late entry for 10.00 am) Subjective: feels about the same at the time of exam -: c/o SOB.discussed why he missed HD appointment - Objective MAR Reviewed: Yes Vital Signs & Weight: Vital Signs (12 hours) Temp Pulse Resp BP Pulse Ox 08/18/18 08:00 98.5 F 84 19 123/96 H 100 08/18/18 04:00 97.6 F 78 18 118/52 L 99 Weight Admit Weight 413 lb 4.8 oz Weight 414 lb I&O: 08/17/18 08/18/18 08/19/18 06:59 06:59 06:59 Intake Total 485 Output Total 150 Balance 335 Result Diagrams: 08/18/18 06:35 08/18/18 06:35 Additional Labs: Accuchecks 08/18/18 08/17/18 05:52 23:28 POC Glucose 110 140 H Phys Exam - Physical Examination Constitutional: NAD dishevelled HEENT: PERRLA, moist MMs, sclera anicteric, oral pharynx no lesions Neck: no nodes, no JVD Respiratory: no wheezing, clear to auscultation bilateral Cardiovascular: RRR, no significant murmur Gastrointestinal: soft, non-tender, no distention, positive bowel sounds Musculoskeletal: pulses present, edema present Neurological: non-focal, normal sensation, moves all 4 limbs Psychiatric: normal affect, A&O x 3 Skin: no rash Dx/Plan (1) Volume overload Code(s): E87.70 - FLUID OVERLOAD, UNSPECIFIED Status: Acute (2) Acute renal failure superimposed on stage 4 chronic kidney disease Code(s): N17.9 - ACUTE KIDNEY FAILURE, UNSPECIFIED; N18.4 - CHRONIC KIDNEY DISEASE, STAGE 4 (SEVERE) Status: Acute Comment: Per nephrology recs (3) ESRD (end stage renal disease) on dialysis Code(s): N18.6 - END STAGE RENAL DISEASE; Z99.2 - DEPENDENCE ON RENAL DIALYSIS Status: Acute Comment: had HD today, next on tuesday, Dr. Mejia following. (4) Anemia of renal disease Code(s): D63.1 - ANEMIA IN CHRONIC KIDNEY DISEASE Status: Chronic Comment: stable (5) Gout Code(s): M10.9 - GOUT, UNSPECIFIED Status: Chronic Comment: No Exacerbation noted. (6) Hypertension Code(s): I10 - ESSENTIAL (PRIMARY) HYPERTENSION Status: Chronic Qualifiers: (7) Morbid obesity due to excess calories Code(s): E66.01 - MORBID (SEVERE) OBESITY DUE TO EXCESS CALORIES Status: Chronic (8) Obesity hypoventilation syndrome Code(s): E66.2 - MORBID (SEVERE) OBESITY WITH ALVEOLAR HYPOVENTILATION Status : Chronic Comment: CPAP at night. (9) Paroxysmal a-fib Code(s): I48.0 - PAROXYSMAL ATRIAL FIBRILLATION Status: Chronic (10) chronic venous stasis Status: Chronic Comment: with dependent edema (11) DM2 (diabetes mellitus, type 2) Status: Chronic (12) CAD (coronary artery disease) Code(s): I25.10 - ATHSCL HEART DISEASE OF [place] CORONARY ARTERY W/O ANG PCTRS Status: Chronic - Plan PT/OT, DVT proph w/SCDs HD per nephro.Notified. -: monitor renal labs -: restart marianela emeds. -: eliquis confirmed and restarted. -: Hemodynamically stable.CM to assist w Transportaion issues for HD * . Review of Systems - Review of Systems Constitutional: weakness, malaise. negative: fever, chills, sweats, other Eyes: negative: Pain, Vision Change, Conjunctivae Inflammation, Eyelid Inflammation, Redness, Other ENT: negative: Ear Pain, Ear Discharge, Nose Pain, Nose Discharge, Nose Congestion, Mouth Pain, Mouth Swelling, Throat Pain, Throat Swelling, Other Respiratory: Shortness of Breath, SOB with Excertion, Wheezing. negative: Cough , Dry, Hemoptysis, Pleuritic Pain, Sputum Cardiovascular: negative: chest pain, palpitations, orthopnea, paroxysmal nocturnal dyspnea, edema, light headedness, other Gastrointestinal: Nausea. negative: Vomiting, Abdominal Pain, Diarrhea, Constipation, Melena, Hematochezia, Other Genitourinary: negative: Dysuria, Frequency, Incontinence, Hematuria, Retention , Other Musculoskeletal: negative: Neck Pain, Shoulder Pain, Arm Pain, Back Pain, Hand Pain, Leg Pain, Foot Pain, Other Skin: negative: Rash, Lesions, Freddy, Bruising, Other Neurological: negative: Weakness, Numbness, Incoordination, Change in Speech, Confusion, Seizures, Other - Medications/Allergies Allergies/Adverse Reactions: Allergies Allergy/AdvReac Type Severity Reaction Status Date / Time quinapril HCl [From Accupril] Allergy Verified 05/08/18 08:07 Medications: Current Medications Apixaban (Eliquis) 2.5 mg PO DAILY [facility] Atorvastatin Calcium (Lipitor) 20 mg PO HS [facility] Bisacodyl (Dulcolax) 10 mg PO DAILYPRN PRN PRN Reason: Constipation Dextrose/Water (Dextrose 50%) 25 gm SLOW IVP PRN PRN PRN Reason: Hypoglycemia Docusate Sodium (Colace) 100 mg PO DAILY [facility] Gabapentin (Neurontin) 100 mg PO TID [facility] Last Admin: 08/18/18 10:24 Dose: Not Given Glucagon (Glucagon) 1 mg IM PRN PRN PRN Reason: Hypoglycemia Dextrose/Water (D5w) 1,000 mls @ 0 mls/hr IV .Q0M PRN PRN Reason: Hypoglycemia Insulin Human Lispro (Humalog) 0 units SC .MILD SLIDING SCALE PRN PRN Reason: Mild Correctional Scale Levothyroxine Sodium (Synthroid) 88 mcg PO DAILY [facility] Lidocaine (Lidoderm 5% Patch) 1 patch TD DAILY [facility] Last Admin: 08/18/18 10:24 Dose: 1 patch Miscellaneous Medication (Lidocaine Patch Removal) 1 each TOP ASDIR JIMENEZ Nystatin (Mycostatin Powder) 0 gm TOP BID PRN PRN Reason: SKIN RASH Last Admin: 08/18/18 07:00 Dose: 1 applic Nystatin (Mycostatin Powder) 0 gm TOP BID JIMENEZ Pantoprazole Sodium (Protonix) 40 mg PO DAILY [facility] Polyethylene Glycol (Miralax) 17 gm PO DAILY PRN PRN Reason: Constipation Ropinirole HCl (Requip) 4 mg PO HS [facility] Sertraline HCl (Zoloft) 25 mg PO DAILY [facility] Sevelamer Carbonate (Renvela) 1,600 mg PO TID-WM [facility] Tramadol HCl (Ultram) 50 mg PO Q6H PRN PRN Reason: Pain
[2018-08-18] MEDS: Sevelamer Carbonate 800 MG TAB PO SCH ×2 (15:47→18:49)
[2018-08-18] MEDS: Docusate 100 MG CAP PO SCH (15:48)
[2018-08-18] MEDS: rOPINIRole HCl 2 MG TAB PO SCH (20:54)
[2018-08-18] MEDS: Nystatin Powder 15 GM BOT TOP SCH (20:55)
[2018-08-18] MEDS: Atorvastatin Calcium 20 MG TAB PO SCH (20:57)
[2018-08-18] MEDS ORDERED: ROPINIROLE HCL 4 MG PO SCH (21:00)
--- NOTE | 2018-08-18 22:50 | CON ---
DATE OF CONSULTATION: 08/18/2018 NEPHROLOGY CONSULT REASON FOR CONSULTATION: Hyperkalemia. HISTORY OF PRESENT ILLNESS: This is a noncompliant 58-year-old gentleman with major psychosocial issues who presented to the hospital after missing dialysis, potassium was 5.6. Patient denies any headache, numbness, tingling, or weakness. Denies any nausea, vomiting, or chest pain. PAST MEDICAL AND SURGICAL HISTORY: Significant for hypertension, congestive heart failure, atrial fibrillation, hypertension, hypothyroidism, osteoarthritis , appendectomy, tonsillectomy, left wrist surgery, morbid obesity, AV fistula, and tunneled dialysis catheter. SOCIAL HISTORY: No alcohol use. FAMILY HISTORY: Negative for ESRD. HOME MEDICATIONS: List reviewed. HOSPITAL MEDICATIONS: List reviewed. ALLERGIES: Reviewed. REVIEW OF SYSTEMS: Fifteen-point review of systems was performed and negative except positives noted above: General: Weakness. Head: Headache. Neck: No swelling or lumps. Nose: No epistaxis or discharge. Eyes: No diplopia or pain. Respiratory: Dyspnea- Cardiovascular: Chest pain. Gastrointestinal: Nausea. /[employer]: Hematuria. Musculoskeletal: No joint pain. Neuropsychiatic Systems: No suicidal ideation. No ideation. Skin: Denies any rash or ulcer. Constitutional: No fever or chills. PHYSICAL EXAMINATION: GENERAL: Patient is awake, alert. VITAL SIGNS: Pulse 90, breathing 16, blood pressure 115/77. GENERAL APPEARANCE AND MENTAL STATUS: Fair. HEAD/NECK: Normocephalic. Atraumatic. EYES: EOMI. No deformity. EARS: Clear. No ulcers. NOSE: Intact. No lesions. MOUTH: Clear. No discharge. THROAT: Clear. No exudate. LUNGS: Clear. No crackles. CARDIAC: S1, S2. No rub. ABDOMEN: Benign. BS+. GENITALIA/RECTUM: [place] absent. BACK/EXTREMITIES: Edema 0+, Ulcer. NEUROLOGICAL: Alert and motor intact. SKIN: Rash. Bruise. LYMPHATICS: Edema. Ulcer. LABORATORY DATA: Potassium is 5.6. ASSESSMENT: 1. Stage 6 CKD with uremia, plan hemodialysis. 2. Anemia. Continue Epogen. 3. Hypertension, stable. 4. Medications based on glomerular filtration rate are appropriate. 5. Uremia, plan dialysis. [facility]
[2018-08-19] MEDS: traMADol HCl 50 MG TAB PO PRN ×3 (04:22→22:16)
[2018-08-19 06:49] LABS: Anion Gap 17 mmol/L (10-20); BUN (Urea Nitrogen) 77 mg/dL (8.4-25.7); Calc. Creatinine Clearance 31 mL/min (70-130); Calcium 8.8 mg/dL (7.8-10.44); Carbon Dioxide 27 mmol/L (22-29); Chloride 99 mmol/L (98-107); Estimated GFR-MDRD 8; Glucose 101 mg/dL (70-105); Potassium 4.8 mmol/L (3.5-5.1); Sodium 138 mmol/L (136-145)
[2018-08-19] MEDS ORDERED: Levothyroxine Sodium 88 MCG TAB PO SCH (08:00)
[2018-08-19] MEDS: Gabapentin 100 MG CAP PO SCH ×3 (09:14→22:00)
[2018-08-19] MEDS: Sevelamer Carbonate 800 MG TAB PO SCH ×3 (09:14→16:31)
[2018-08-19] MEDS ORDERED: Epoetin (ESRD) 10,000 UNITS/ML VIAL SC SCH (12:00)
--- NOTE | 2018-08-19 12:01 | PRG ---
DATE OF SERVICE: 08/19/2018 SUBJECTIVE: A 58-year-old gentleman being seen for end-stage renal disease. The patient denies any nausea, vomiting, or chest pain. PHYSICAL EXAMINATION: GENERAL: Patient is awake and alert. VITAL SIGNS: Afebrile, pulse 85, breathing at 16, blood pressure 125/55. GENERAL APPEARANCE AND MENTAL STATUS: Fair. HEAD/NECK: Normocephalic. Atraumatic. EYES: EOMI. No deformity. EARS: Clear. No ulcers. NOSE: Intact. No lesions. MOUTH: Clear. No discharge. THROAT: Clear. No exudate. LUNGS: Clear. No crackles. CARDIAC: S1, S2. No rub. ABDOMEN: Benign. BS+. GENITALIA/RECTUM: [place] absent. BACK/EXTREMITIES: Edema 0+ Ulcer-. NEUROLOGICAL: Alert and motor intact. SKIN: Rash- Bruise- LYMPHATICS: Edema- Ulcer-. LABORATORY DATA: Show hemoglobin 8.8. ASSESSMENT AND RECOMMENDATIONS: 1. Stage 6 chronic kidney disease, continue hemodialysis. 2. Hypertension, stable. 3. Anemia, stable. 4. Medication based on glomerular filtration rate are appropriate.
[2018-08-19] MEDS: Apixaban 2.5 MG TAB PO SCH (12:06)
[2018-08-19] MEDS: Lidocaine 5% Patch TD SCH (12:07)
[2018-08-19] MEDS: Nystatin Powder 15 GM BOT TOP SCH ×2 (12:07→22:00)
[2018-08-19] MEDS: Docusate 100 MG CAP PO SCH (12:07)
--- NOTE | 2018-08-19 12:18 | EKG ---
Test Reason : Blood Pressure : / mmHG Vent. Rate : 094 BPM Atrial Rate : 078 BPM P-R Int : 000 ms QRS Dur : 098 ms QT Int : 356 ms P-R-T Axes : 000 145 010 degrees QTc Int : 445 ms Atrial fibrillation with premature ventricular or aberrantly conducted complexes Right axis deviation Incomplete right bundle branch block Possible Right ventricular hypertrophy Abnormal ECG Confirmed by KREEN SAPP ([id number]), editor [employer] MAURO PURDY ([id number]) on 08/19/2018 12:18:44 PM Referred By: Confirmed By:KEREN SAPP
--- NOTE | 2018-08-19 12:54 | PDOC.PN ---
- Subjective Encounter Start Date: 08/19/18 Encounter Start Time: 12:53 Subjective: seen and examined in HD. -: feels much better.breathing easier -: reports that he has HH for OT,PT,nursing.no CP - Objective MAR Reviewed: Yes Vital Signs & Weight: Vital Signs (12 hours) Temp Pulse Resp BP Pulse Ox 08/19/18 12:00 97.8 F 83 17 102/50 L 98 08/19/18 07:10 97.9 F 80 17 125/55 L 99 08/19/18 04:00 97.9 F 94 20 113/54 L 98 Weight Admit Weight 413 lb 4.8 oz Weight 404 lb I&O: 08/18/18 08/19/18 08/20/18 06:59 06:59 06:59 Intake Total 485 480 Output Total 150 2430 Balance 335 -1950 Result Diagrams: 08/18/18 06:35 08/19/18 05:46 Additional Labs: Accuchecks 08/19/18 08/19/18 08/18/18 12:33 06:25 20:47 POC Glucose 149 H 108 173 H 08/18/18 16:43 POC Glucose 159 H Phys Exam - Physical Examination HEENT: PERRLA, moist MMs, sclera anicteric, oral pharynx no lesions Neck: no nodes, no JVD, supple, full ROM Respiratory: no wheezing, no rales, no rhonchi, clear to auscultation bilateral Cardiovascular: RRR, no significant murmur, no rub Gastrointestinal: soft, non-tender, no distention, positive bowel sounds Musculoskeletal: no edema, pulses present Neurological: non-focal, normal sensation, moves all 4 limbs Psychiatric: normal affect, A&O x 3 Skin: no rash Dx/Plan (1) Volume overload Code(s): E87.70 - FLUID OVERLOAD, UNSPECIFIED Status: Acute (2) Acute renal failure superimposed on stage 4 chronic kidney disease Code(s): N17.9 - ACUTE KIDNEY FAILURE, UNSPECIFIED; N18.4 - CHRONIC KIDNEY DISEASE, STAGE 4 (SEVERE) Status: Acute Comment: Per nephrology recs (3) ESRD (end stage renal disease) on dialysis Code(s): N18.6 - END STAGE RENAL DISEASE; Z99.2 - DEPENDENCE ON RENAL DIALYSIS Status: Acute Comment: had HD today, next on tuesday, Dr. Mejia following. (4) Anemia of renal disease Code(s): D63.1 - ANEMIA IN CHRONIC KIDNEY DISEASE Status: Chronic Comment: stable (5) Gout Code(s): M10.9 - GOUT, UNSPECIFIED Status: Chronic Comment: No Exacerbation noted. (6) Hypertension Code(s): I10 - ESSENTIAL (PRIMARY) HYPERTENSION Status: Chronic Qualifiers: (7) Morbid obesity due to excess calories Code(s): E66.01 - MORBID (SEVERE) OBESITY DUE TO EXCESS CALORIES Status: Chronic (8) Obesity hypoventilation syndrome Code(s): E66.2 - MORBID (SEVERE) OBESITY WITH ALVEOLAR HYPOVENTILATION Status : Chronic Comment: CPAP at night. (9) Paroxysmal a-fib Code(s): I48.0 - PAROXYSMAL ATRIAL FIBRILLATION Status: Chronic (10) chronic venous stasis Status: Chronic Comment: with dependent edema (11) DM2 (diabetes mellitus, type 2) Status: Chronic (12) CAD (coronary artery disease) Code(s): I25.10 - ATHSCL HEART DISEASE OF [place] CORONARY ARTERY W/O ANG PCTRS Status: Chronic - Plan PT/OT, out of bed/ambulate, DVT proph w/heparin, DVT proph w/SCDs fluid removal as tolerated oer dialysis -: check ECHO to r/o CHF as well w ESRD -: FIDE khalil by tuesday. -: CM to assist w Transportaion issues. -: rehab eval * . Review of Systems - Review of Systems Constitutional: negative: fever, chills, sweats, weakness, malaise, other ENT: negative: Ear Pain, Ear Discharge, Nose Pain, Nose Discharge, Nose Congestion, Mouth Pain, Mouth Swelling, Throat Pain, Throat Swelling, Other Respiratory: negative: Cough, Dry, Shortness of Breath, Hemoptysis, SOB with Excertion, Pleuritic Pain, Sputum, Wheezing Cardiovascular: negative: chest pain, palpitations, orthopnea, paroxysmal nocturnal dyspnea, edema, light headedness, other Gastrointestinal: negative: Nausea, Vomiting, Abdominal Pain, Diarrhea, Constipation, Melena, Hematochezia, Other Genitourinary: negative: Dysuria, Frequency, Incontinence, Hematuria, Retention , Other Musculoskeletal: negative: Neck Pain, Shoulder Pain, Arm Pain, Back Pain, Hand Pain, Leg Pain, Foot Pain, Other Skin: negative: Rash, Lesions, Freddy, Bruising, Other Neurological: negative: Weakness, Numbness, Incoordination, Change in Speech, Confusion, Seizures, Other - Medications/Allergies Allergies/Adverse Reactions: Allergies Allergy/AdvReac Type Severity Reaction Status Date / Time quinapril HCl [From Accupril] Allergy Verified 05/08/18 08:07 Medications: Current Medications Apixaban (Eliquis) 2.5 mg PO DAILY [facility] Last Admin: 08/19/18 12:06 Dose: 2.5 mg Atorvastatin Calcium (Lipitor) 20 mg PO HS [facility] Last Admin: 08/18/18 20:57 Dose: 20 mg Bisacodyl (Dulcolax) 10 mg PO DAILYPRN PRN PRN Reason: Constipation Dextrose/Water (Dextrose 50%) 25 gm SLOW IVP PRN PRN PRN Reason: Hypoglycemia Docusate Sodium (Colace) 100 mg PO DAILY [facility] Last Admin: 08/19/18 12:07 Dose: 100 mg Epoetin Brain (Procrit) 10,000 units SC Q7D [facility] Last Admin: 08/19/18 12:09 Dose: 10,000 units Gabapentin (Neurontin) 100 mg PO TID [facility] Last Admin: 08/19/18 09:14 Dose: Not Given Glucagon (Glucagon) 1 mg IM PRN PRN PRN Reason: Hypoglycemia Dextrose/Water (D5w) 1,000 mls @ 0 mls/hr IV .Q0M PRN PRN Reason: Hypoglycemia Insulin Human Lispro (Humalog) 0 units SC .MILD SLIDING SCALE PRN PRN Reason: Mild Correctional Scale Levothyroxine Sodium (Synthroid) 88 mcg PO 0600 [facility] Lidocaine (Lidoderm 5% Patch) 1 patch TD DAILY [facility] Last Admin: 08/19/18 12:07 Dose: 1 patch Miscellaneous Medication (Lidocaine Patch Removal) 1 each TOP ASDIR [facility] Nystatin (Mycostatin Powder) 0 gm TOP BID PRN PRN Reason: SKIN RASH Last Admin: 08/18/18 07:00 Dose: 1 applic Nystatin (Mycostatin Powder) 0 gm TOP BID [facility] Last Admin: 08/19/18 12:07 Dose: 1 appful Pantoprazole Sodium (Protonix) 40 mg PO DAILY [facility] Last Admin: 08/19/18 12:07 Dose: 40 mg Polyethylene Glycol (Miralax) 17 gm PO DAILY PRN PRN Reason: Constipation Ropinirole HCl (Requip) 4 mg PO HS [facility] Last Admin: 08/18/18 20:54 Dose: 4 mg Sertraline HCl (Zoloft) 25 mg PO DAILY [facility] Last Admin: 08/19/18 12:08 Dose: 25 mg Sevelamer Carbonate (Renvela) 1,600 mg PO TID-WM [facility] Last Admin: 08/19/18 12:08 Dose: 1,600 mg Tramadol HCl (Ultram) 50 mg PO Q6H PRN PRN Reason: Pain Last Admin: 08/19/18 12:08 Dose: 50 mg
[2018-08-19] MEDS: rOPINIRole HCl 2 MG TAB PO SCH (21:59)
[2018-08-19] MEDS: Atorvastatin Calcium 20 MG TAB PO SCH (22:00)
[2018-08-20] MEDS: Levothyroxine Sodium 88 MCG TAB PO SCH (05:34)
[2018-08-20 06:04] LABS: Anion Gap 14 mmol/L (10-20); BUN (Urea Nitrogen) 58 mg/dL (8.4-25.7); Calc. Creatinine Clearance 35 mL/min (70-130); Calcium 8.7 mg/dL (7.8-10.44); Carbon Dioxide 28 mmol/L (22-29); Chloride 100 mmol/L (98-107); Estimated GFR-MDRD 10; Glucose 123 mg/dL (70-105); Magnesium 1.8 mg/dL (1.6-2.6); Phosphorus 6.4 mg/dL (2.3-4.7); Potassium 4.4 mmol/L (3.5-5.1); Sodium 138 mmol/L (136-145)
[2018-08-20] MEDS: Gabapentin 100 MG CAP PO SCH ×3 (08:35→20:53)
[2018-08-20] MEDS: Lidocaine 5% Patch TD SCH (08:35)
[2018-08-20] MEDS: Apixaban 2.5 MG TAB PO SCH (08:35)
[2018-08-20] MEDS: Docusate 100 MG CAP PO SCH (08:35)
[2018-08-20] MEDS: Sevelamer Carbonate 800 MG TAB PO SCH ×3 (08:35→16:47)
[2018-08-20] MEDS: Nystatin Powder 15 GM BOT TOP SCH ×2 (08:35→20:54)
[2018-08-20] MEDS: traMADol HCl 50 MG TAB PO PRN ×2 (08:42→16:47)
--- NOTE | 2018-08-20 10:23 | PDOC.PN ---
- Subjective Encounter Start Date: 08/20/18 Encounter Start Time: 10:22 Subjective: feels much better. uses O2 at home too when sleeps -: feels the swelling is improved & breathing easier -: no new complaints - Objective MAR Reviewed: Yes Vital Signs & Weight: Vital Signs (12 hours) Temp Pulse Resp BP Pulse Ox 08/20/18 08:00 92 L 08/20/18 07:49 98.6 F 80 16 125/47 L 92 L 08/20/18 04:00 98.4 F 86 18 120/46 L 99 08/20/18 00:00 97.9 F 87 18 178/66 H 95 Weight Admit Weight 413 lb 4.8 oz Weight 392 lb 13.82 oz I&O: 08/19/18 08/20/18 08/21/18 06:59 06:59 06:59 Intake Total 480 940 Output Total 2430 4100 Balance -1950 -3160 Result Diagrams: 08/18/18 06:35 08/20/18 05:06 Additional Labs: Accuchecks 08/20/18 08/19/18 08/19/18 06:04 20:54 17:14 POC Glucose 140 H 138 H 140 H 08/19/18 12:33 POC Glucose 149 H Phys Exam - Physical Examination Constitutional: NAD HEENT: PERRLA, moist MMs, sclera anicteric, oral pharynx no lesions Neck: no nodes, no JVD, supple, full ROM Respiratory: no wheezing, no rales, no rhonchi, clear to auscultation bilateral Cardiovascular: RRR, no significant murmur, no rub Gastrointestinal: soft, non-tender, no distention, positive bowel sounds Musculoskeletal: pulses present, edema present Neurological: non-focal, normal sensation, moves all 4 limbs Psychiatric: normal affect, A&O x 3 Deviation from normal: chr LE venous stasis changes Dx/Plan (1) Volume overload Code(s): E87.70 - FLUID OVERLOAD, UNSPECIFIED Status: Acute Comment: Fluid removal per HD as tolerated (2) Acute renal failure superimposed on stage 4 chronic kidney disease Code(s): N17.9 - ACUTE KIDNEY FAILURE, UNSPECIFIED; N18.4 - CHRONIC KIDNEY DISEASE, STAGE 4 (SEVERE) Status: Acute Comment: Per nephrology recs (3) ESRD (end stage renal disease) on dialysis Code(s): N18.6 - END STAGE RENAL DISEASE; Z99.2 - DEPENDENCE ON RENAL DIALYSIS Status: Acute Comment: had HD today, next on tuesday, Dr. Mejia following. (4) Anemia of renal disease Code(s): D63.1 - ANEMIA IN CHRONIC KIDNEY DISEASE Status: Chronic Comment: stable (5) Gout Code(s): M10.9 - GOUT, UNSPECIFIED Status: Chronic Comment: No Exacerbation noted. (6) Hypertension Code(s): I10 - ESSENTIAL (PRIMARY) HYPERTENSION Status: Chronic Qualifiers: (7) Morbid obesity due to excess calories Code(s): E66.01 - MORBID (SEVERE) OBESITY DUE TO EXCESS CALORIES Status: Chronic (8) Obesity hypoventilation syndrome Code(s): E66.2 - MORBID (SEVERE) OBESITY WITH ALVEOLAR HYPOVENTILATION Status : Chronic Comment: CPAP at night. (9) Paroxysmal a-fib Code(s): I48.0 - PAROXYSMAL ATRIAL FIBRILLATION Status: Chronic Comment: on Eliquis (10) chronic venous stasis Status: Chronic Comment: with dependent edema (11) DM2 (diabetes mellitus, type 2) Status: Chronic (12) CAD (coronary artery disease) Code(s): I25.10 - ATHSCL HEART DISEASE OF [place] CORONARY ARTERY W/O ANG PCTRS Status: Chronic - Plan PT/OT, out of bed/ambulate, DVT proph w/SCDs Pt requested rehab. Awaiting approval.Ok to DC when accepted -: CM to assist w OP transportation issues w HD appointments -: cont home meds as below. -: hemodynamically stable. Nephrology following -: am labs.ECHO pending to eval CHF status.OP HF clinic referral * . Review of Systems - Review of Systems Constitutional: negative: fever, chills, sweats, weakness, malaise, other ENT: negative: Ear Pain, Ear Discharge, Nose Pain, Nose Discharge, Nose Congestion, Mouth Pain, Mouth Swelling, Throat Pain, Throat Swelling, Other Respiratory: SOB with Excertion. negative: Cough, Dry, Shortness of Breath, Hemoptysis, Pleuritic Pain, Sputum, Wheezing Cardiovascular: negative: chest pain, palpitations, orthopnea, paroxysmal nocturnal dyspnea, edema, light headedness, other Gastrointestinal: negative: Nausea, Vomiting, Abdominal Pain, Diarrhea, Constipation, Melena, Hematochezia, Other Genitourinary: negative: Dysuria, Frequency, Incontinence, Hematuria, Retention , Other Musculoskeletal: negative: Neck Pain, Shoulder Pain, Arm Pain, Back Pain, Hand Pain, Leg Pain, Foot Pain, Other Skin: negative: Rash, Lesions, Freddy, Bruising, Other Neurological: negative: Weakness, Numbness, Incoordination, Change in Speech, Confusion, Seizures, Other - Medications/Allergies Allergies/Adverse Reactions: Allergies Allergy/AdvReac Type Severity Reaction Status Date / Time quinapril HCl [From Accupril] Allergy Verified 05/08/18 08:07 Medications: Current Medications Apixaban (Eliquis) 2.5 mg PO DAILY [facility] Last Admin: 08/20/18 08:35 Dose: 2.5 mg Atorvastatin Calcium (Lipitor) 20 mg PO HS [facility] Last Admin: 08/19/18 22:00 Dose: 20 mg Bisacodyl (Dulcolax) 10 mg PO DAILYPRN PRN PRN Reason: Constipation Dextrose/Water (Dextrose 50%) 25 gm SLOW IVP PRN PRN PRN Reason: Hypoglycemia Docusate Sodium (Colace) 100 mg PO DAILY [facility] Last Admin: 08/20/18 08:35 Dose: 100 mg Epoetin Brain (Procrit) 10,000 units SC Q7D [facility] Last Admin: 08/19/18 12:09 Dose: 10,000 units Gabapentin (Neurontin) 100 mg PO TID [facility] Last Admin: 08/20/18 08:35 Dose: 100 mg Glucagon (Glucagon) 1 mg IM PRN PRN PRN Reason: Hypoglycemia Dextrose/Water (D5w) 1,000 mls @ 0 mls/hr IV .Q0M PRN PRN Reason: Hypoglycemia Insulin Human Lispro (Humalog) 0 units SC .MILD SLIDING SCALE PRN PRN Reason: Mild Correctional Scale Levothyroxine Sodium (Synthroid) 88 mcg PO 0600 [facility] Last Admin: 08/20/18 05:34 Dose: 88 mcg Lidocaine (Lidoderm 5% Patch) 1 patch TD DAILY [facility] Last Admin: 08/20/18 08:35 Dose: 1 patch Miscellaneous Medication (Lidocaine Patch Removal) 1 each TOP ASDIR [facility] Nystatin (Mycostatin Powder) 0 gm TOP BID PRN PRN Reason: SKIN RASH Last Admin: 08/18/18 07:00 Dose: 1 applic Nystatin (Mycostatin Powder) 0 gm TOP BID [facility] Last Admin: 08/20/18 08:35 Dose: 1 appful Pantoprazole Sodium (Protonix) 40 mg PO DAILY [facility] Last Admin: 08/20/18 08:35 Dose: 40 mg Polyethylene Glycol (Miralax) 17 gm PO DAILY PRN PRN Reason: Constipation Ropinirole HCl (Requip) 4 mg PO HS [facility] Last Admin: 08/19/18 21:59 Dose: 4 mg Sertraline HCl (Zoloft) 25 mg PO DAILY [facility] Last Admin: 08/20/18 08:35 Dose: 25 mg Sevelamer Carbonate (Renvela) 1,600 mg PO TID-WM [facility] Last Admin: 08/20/18 08:35 Dose: 1,600 mg Tramadol HCl (Ultram) 50 mg PO Q6H PRN PRN Reason: Pain Last Admin: 08/20/18 08:42 Dose: 50 mg
--- NOTE | 2018-08-20 12:43 | PRG ---
DATE OF SERVICE: 08/20/2018 SUBJECTIVE: A 58-year-old gentleman being seen for end-stage renal disease. The patient denies any nausea, vomiting, or chest pain. OBJECTIVE: GENERAL: Patient is awake, alert. VITAL SIGNS: Afebrile, pulse 87, breathing 16, blood pressure 125/47. GENERAL APPEARANCE AND MENTAL STATUS: Fair. HEAD/NECK: Normocephalic. Atraumatic. EYES: EOMI. No deformity. EARS: Clear. No ulcers. NOSE: Intact. No lesions. MOUTH: Clear. No discharge. THROAT: Clear. No exudate. LUNGS: Clear. No crackles. CARDIAC: S1, S2. No rub. ABDOMEN: Benign. BS+. GENITALIA/RECTUM: [place] absent. BACK/EXTREMITIES: Edema 0+ Ulcer- NEUROLOGICAL: Alert and motor intact. SKIN: Rash- Bruise- LYMPHATICS: Edema- Ulcer- LABORATORY: Show hemoglobin 8.8, creatinine is 5.5. ASSESSMENT AND PLAN: 1. Stage 6 chronic kidney disease, continue hemodialysis. 2. Uremia, improved. 3. Hypertension, stable. 4. Anemia, stable. Continue Epogen. Medication based on glomerular filtration rate are appropriate. MTDD
[2018-08-20] MEDS ORDERED: hydrALAZINE 25 MG TAB PO SCH (13:00)
[2018-08-20] MEDS ORDERED: Nitroglycerin 0.4 MG TAB (25 Tab Bottle) SL PRN (14:27)
[2018-08-20] MEDS ORDERED: Mag-Al 1200 mg/1200 mg/30 ML UDCUP PO PRN (14:27)
[2018-08-20] MEDS: Atorvastatin Calcium 20 MG TAB PO SCH (20:53)
[2018-08-20] MEDS: rOPINIRole HCl 2 MG TAB PO SCH (20:54)
[2018-08-21] MEDS: Levothyroxine Sodium 88 MCG TAB PO SCH (05:28)
[2018-08-21] MEDS: traMADol HCl 50 MG TAB PO PRN (05:30)
[2018-08-21 05:53] LABS: Anion Gap 18 mmol/L (10-20); BUN (Urea Nitrogen) 62 mg/dL (8.4-25.7); Calc. Creatinine Clearance 0 mL/min (70-130); Calcium 8.9 mg/dL (7.8-10.44); Carbon Dioxide 24 mmol/L (22-29); Chloride 97 mmol/L (98-107); Estimated GFR-MDRD 10; Glucose 112 mg/dL (70-105); Potassium 4.8 mmol/L (3.5-5.1); Sodium 134 mmol/L (136-145)
[2018-08-21] MEDS: Sevelamer Carbonate 800 MG TAB PO SCH ×3 (10:17→17:56)
[2018-08-21] MEDS: Nystatin Powder 15 GM BOT TOP SCH ×2 (10:18→20:34)
[2018-08-21] MEDS: Gabapentin 100 MG CAP PO SCH ×3 (10:18→20:34)
[2018-08-21] MEDS: Lidocaine 5% Patch TD SCH (10:18)
[2018-08-21] MEDS: Docusate 100 MG CAP PO SCH (10:18)
--- NOTE | 2018-08-21 12:40 | PRG ---
Date of service: 08/21/2018 Subjective: Patient was seen and examined at bedside and overnight events noted. Patient denies any shortness of breath or chest pain or palpitation. No history of nausea or vomiting or diarrhea or fever or chills or cramps. Objective: GENERAL: This is a morbidly obese male in no apparent distress. VITAL SIGNS: Temperature 98.7. Pulse 84. Blood pressure 124/68. HEENT: Atraumatic, normocephalic, Oral mucosa is moist Neck: Supple Cardiovascular: S1S2 heard, Rate and rhythm regular Respiratory: Clear to auscultation Gastrointestinal: Abdomen is soft Musculoskeletal : No tenderness, No edema Dermatologic : No skin rash Neurologic: Alert and awake and oriented X3, No focal neurologic deficits. Moving all the extremities . Psychiatric: Mood and affect normal Laboratory data: Potassium is 4.8, BUN is 62, creatinine is 5.7. Assessment and Plan: 1. End-stage renal disease. Continue dialysis, Tuesday, , and Tuesday. We will have dialy sis tomorrow. 2. Hypertension. 3. Hyperkalemia. 4. Anemia, stable. 5. Morbid obesity. Continue dialysis on Tuesday, , and Tuesday.
[2018-08-21] MEDS: Apixaban 2.5 MG TAB PO SCH (12:52)
--- NOTE | 2018-08-21 14:29 | PDOC.PN ---
- Subjective Encounter Start Date: 08/21/18 Encounter Start Time: 10:00 -: old records requested/rev Pt seen and examined, chart reviewed in its entirety, this is my first visit with this patient follow up for: volume overload, severe obesity, ESRD on HD, nonadherence No F/C, no N/V/D/C, no CP or SOB All systems reviewed and neg x as per HPI - Objective MAR Reviewed: Yes Vital Signs & Weight: Vital Signs (12 hours) Temp Pulse Resp BP Pulse Ox 08/21/18 11:30 84 22 H 102/48 L 98 08/21/18 07:39 97.9 F 84 20 124/68 92 L 08/21/18 07:25 94 L 08/21/18 04:00 97.8 F 102 H 16 128/57 L 92 L Weight Admit Weight 413 lb 4.8 oz Weight 6.254 oz I&O: 08/20/18 08/21/18 08/22/18 06:59 06:59 06:59 Intake Total 940 1680 Output Total 4100 100 Balance -3160 1580 Result Diagrams: 08/18/18 06:35 08/24/18 04:00 Additional Labs: Accuchecks 08/21/18 08/21/18 08/20/18 10:46 05:41 20:44 POC Glucose 126 H 116 H 155 H 08/20/18 16:58 POC Glucose 132 H Radiology Reviewed by me: Yes EKG Reviewed by me: Yes Phys Exam - Physical Examination Constitutional: NAD HEENT: PERRLA, moist MMs, sclera anicteric, oral pharynx no lesions Neck: no nodes, no JVD, supple, full ROM Respiratory: no wheezing, no rhonchi, clear to auscultation bilateral Cardiovascular: RRR, no significant murmur, no rub Gastrointestinal: soft, non-tender, no distention, positive bowel sounds Musculoskeletal: edema present Neurological: non-focal, normal sensation, moves all 4 limbs Lymphatic: no nodes Psychiatric: normal affect, A&O x 3 Skin: no rash, normal turgor, cap refill <2 seconds Dx/Plan (1) Volume overload Code(s): E87.70 - FLUID OVERLOAD, UNSPECIFIED Status: Acute Qualifiers: Hypervolemia type: other Qualified Code(s): E87.79 - Other fluid overload Comment: Fluid removal per HD as tolerated (2) CAD (coronary artery disease) Code(s): I25.10 - ATHSCL HEART DISEASE OF [place] CORONARY ARTERY W/O ANG PCTRS Status: Chronic Qualifiers: Coronary Disease-Associated Artery/Lesion type: [place] artery [place] vs. 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: unspecified custodial insulin use status Diabetes mellitus complication status: with kidney complications Diabetes mellitus complication detail: with chronic kidney disease Chronic kidney disease stage: on chronic dialysis Qualified Code(s): E11.22 - Type 2 diabetes mellitus with diabetic chronic kidney disease; N18.6 - End stage renal disease; Z99.2 - Dependence on renal dialysis (4) Acute on chronic diastolic heart failure Code(s): I50.33 - ACUTE ON CHRONIC DIASTOLIC (CONGESTIVE) HEART FAILURE Status : Acute (5) ESRD (end stage renal disease) on dialysis Code(s): N18.6 - END STAGE RENAL DISEASE; Z99.2 - DEPENDENCE ON RENAL DIALYSIS Status: Chronic Comment: had HD today, wed, Dr. Mejia following. (6) Gout Code(s): M10.9 - GOUT, UNSPECIFIED Status: Chronic Qualifiers: Gout site: unspecified site Gout etiology: unspecified cause Presence of tophus: without tophus Comment: No Exacerbation noted. (7) Hypertension Code(s): I10 - ESSENTIAL (PRIMARY) HYPERTENSION Status: Chronic Qualifiers: Hypertension type: essential hypertension Qualified Code(s): I10 - Essential (primary) hypertension (8) Morbid obesity due to excess calories Code(s): E66.01 - MORBID (SEVERE) OBESITY DUE TO EXCESS CALORIES Status: Chronic (9) Obesity hypoventilation syndrome Code(s): E66.2 - MORBID (SEVERE) OBESITY WITH ALVEOLAR HYPOVENTILATION Status : Chronic Comment: CPAP at night. (10) Paroxysmal a-fib Code(s): I48.0 - PAROXYSMAL ATRIAL FIBRILLATION Status: Chronic Comment: on Eliquis - Plan cont current plan of care, PT/OT, social insurance administrator, out of bed/ambulate * . to REHAB when arranged and cleared by Renal
[2018-08-21] MEDS ORDERED: Clopidogrel Bisulfate 75 MG TAB ONE (20:26)
[2018-08-21] MEDS: Atorvastatin Calcium 20 MG TAB PO SCH (20:34)
[2018-08-21] MEDS: rOPINIRole HCl 2 MG TAB PO SCH (20:35)
[2018-08-22 05:23] LABS: Anion Gap 20 mmol/L (10-20); BUN (Urea Nitrogen) 68 mg/dL (8.4-25.7); Calc. Creatinine Clearance 0 mL/min (70-130); Calcium 9.2 mg/dL (7.8-10.44); Carbon Dioxide 22 mmol/L (22-29); Chloride 97 mmol/L (98-107); Estimated GFR-MDRD 10; Glucose 99 mg/dL (70-105); Potassium 5.1 mmol/L (3.5-5.1); Sodium 134 mmol/L (136-145)
[2018-08-22] MEDS: Levothyroxine Sodium 88 MCG TAB PO SCH (06:23)
[2018-08-22] MEDS: Lidocaine 5% Patch TD SCH (08:23)
[2018-08-22] MEDS: Sevelamer Carbonate 800 MG TAB PO SCH ×3 (08:23→17:36)
[2018-08-22] MEDS: Docusate 100 MG CAP PO SCH (08:34)
[2018-08-22] MEDS: Gabapentin 100 MG CAP PO SCH ×3 (08:34→22:51)
[2018-08-22] MEDS: Apixaban 2.5 MG TAB PO SCH (08:34)
[2018-08-22] MEDS: Nystatin Powder 15 GM BOT TOP SCH ×2 (08:34→22:51)
--- NOTE | 2018-08-22 13:49 | PDOC.PN ---
- Subjective Encounter Start Date: 08/22/18 Encounter Start Time: 10:20 follow up for: ESRD on HD, missed HD, fluid overload, SOB, DM2, HTN, severe obesity and physical deconditioning No F/C, no N/V/D/C, no CP or SOB. HD today, awaiting rehab approval All systems reviewed and neg x as per HPI - Objective Vital Signs & Weight: Vital Signs (12 hours) Temp Pulse Resp BP BP Pulse Ox 08/22/18 11:59 97.8 F 92 17 99/50 L 98 08/22/18 08:00 98 08/22/18 07:31 97.8 F 92 17 110/48 L 98 08/22/18 04:00 98 F 92 20 94/52 L 98 Weight Admit Weight 413 lb 4.8 oz Weight 6.254 oz I&O: 08/21/18 08/22/18 08/23/18 06:59 06:59 06:59 Intake Total 1680 Output Total 100 Balance 1580 Result Diagrams: 08/18/18 06:35 08/24/18 04:00 Additional Labs: Accuchecks 08/22/18 08/22/18 08/21/18 11:53 05:01 17:06 POC Glucose 127 H 114 H 151 H Phys Exam - Physical Examination Constitutional: NAD HEENT: PERRLA, moist MMs, sclera anicteric, oral pharynx no lesions Neck: no nodes, no JVD, supple Respiratory: no wheezing, no rhonchi Cardiovascular: RRR, no significant murmur, no rub Gastrointestinal: soft, non-tender, no distention, positive bowel sounds Musculoskeletal: edema present Neurological: non-focal, normal sensation, moves all 4 limbs Lymphatic: no nodes Psychiatric: normal affect, A&O x 3 Skin: no rash, normal turgor, cap refill <2 seconds Dx/Plan (1) Volume overload Code(s): E87.70 - FLUID OVERLOAD, UNSPECIFIED Status: Acute Qualifiers: Hypervolemia type: other Qualified Code(s): E87.79 - Other fluid overload Comment: Fluid removal per HD as tolerated (2) CAD (coronary artery disease) Code(s): I25.10 - ATHSCL HEART DISEASE OF [place] CORONARY ARTERY W/O ANG PCTRS Status: Chronic Qualifiers: Coronary Disease-Associated Artery/Lesion type: [place] artery [place] vs. 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 Diabetes mellitus complication status: with kidney complications Diabetes mellitus complication detail: with chronic kidney disease Chronic kidney disease stage: on chronic dialysis Qualified Code(s): E11.22 - Type 2 diabetes mellitus with diabetic chronic kidney disease; N18.6 - End stage renal disease; Z99.2 - Dependence on renal dialysis (4) Acute on chronic diastolic heart failure Code(s): I50.33 - ACUTE ON CHRONIC DIASTOLIC (CONGESTIVE) HEART FAILURE Status : Acute (5) ESRD (end stage renal disease) on dialysis Code(s): N18.6 - END STAGE RENAL DISEASE; Z99.2 - DEPENDENCE ON RENAL DIALYSIS Status: Chronic Comment: had HD today, wed, Dr. Mejia following. (6) Gout Code(s): M10.9 - GOUT, UNSPECIFIED Status: Chronic Qualifiers: Gout site: unspecified site Gout etiology: unspecified cause Presence of tophus: without tophus Comment: No Exacerbation noted. (7) Hypertension Code(s): I10 - ESSENTIAL (PRIMARY) HYPERTENSION Status: Chronic Qualifiers: Hypertension type: essential hypertension Qualified Code(s): I10 - Essential (primary) hypertension (8) Morbid obesity due to excess calories Code(s): E66.01 - MORBID (SEVERE) OBESITY DUE TO EXCESS CALORIES Status: Chronic (9) Obesity hypoventilation syndrome Code(s): E66.2 - MORBID (SEVERE) OBESITY WITH ALVEOLAR HYPOVENTILATION Status : Chronic Comment: CPAP at night. (10) Paroxysmal a-fib Code(s): I48.0 - PAROXYSMAL ATRIAL FIBRILLATION Status: Chronic Comment: on Eliquis - Plan * .
[2018-08-22] MEDS ORDERED: Acetaminophen 325 MG TAB PO PRN (15:35)
[2018-08-22] MEDS: traMADol HCl 50 MG TAB PO PRN ×2 (15:49→22:56)
--- NOTE | 2018-08-22 18:40 | PRG ---
DATE OF SERVICE: 08/22/2018 SUBJECTIVE: Patient was seen and examined at bedside and overnight events noted. Patient denies any shortness of breath or chest pain or palpitation. No history of nausea or vomiting or diarrhea or f ever or chills or cramps. OBJECTIVE: GENERAL: This is an obese male in no apparent distress. VITAL SIGNS: Temperature 97.8, pulse 92, respiratory rate 18, blood pressure 99/50. HEENT: Atraumatic, normocephalic. Oral mucosa is moist. NECK: Supple CARDIOVASCULAR: S1, S2 heard. Rate and rhythm regular. RESPIRATORY: Clear to auscultation. GASTROINTESTINAL: Abdomen is soft. MUSCULOSKELETAL: No tenderness, no edema. DERMATOLOGIC: No skin rash. NEUROLOGIC: Alert, awake, and oriented x3. No focal neurologic deficits. Moving all the extremitie s. PSYCHIATRIC: Mood and affect normal. LABORATORY DATA: Potassium is 5.1, BUN is 68, creatinine is 6.04. ASSESSMENT AND PLAN: 1. End-stage renal disease. We will continue on hemodialysis as tolerated. Continue dialysis on , , Tuesday. 2. Hypertension. 3. Hyperkalemia. 4. Anemia. 5. Morbid obesity. We will continue on dialysis TTS as tolerated.
[2018-08-22] MEDS: rOPINIRole HCl 2 MG TAB PO SCH (22:50)
[2018-08-22] MEDS: Atorvastatin Calcium 20 MG TAB PO SCH (22:51)
[2018-08-23 05:37] LABS: Anion Gap 13 mmol/L (10-20); BUN (Urea Nitrogen) 49 mg/dL (8.4-25.7); Calc. Creatinine Clearance 42 mL/min (70-130); Calcium 8.7 mg/dL (7.8-10.44); Carbon Dioxide 31 mmol/L (22-29); Chloride 98 mmol/L (98-107); Estimated GFR-MDRD 13; Glucose 104 mg/dL (70-105); Potassium 4.5 mmol/L (3.5-5.1); Sodium 137 mmol/L (136-145)
[2018-08-23] MEDS: Levothyroxine Sodium 88 MCG TAB PO SCH (05:42)
[2018-08-23] MEDS: traMADol HCl 50 MG TAB PO PRN ×2 (05:42→15:20)
[2018-08-23] MEDS: Sevelamer Carbonate 800 MG TAB PO SCH ×3 (09:08→18:06)
[2018-08-23] MEDS: Apixaban 2.5 MG TAB PO SCH (09:09)
[2018-08-23] MEDS: Gabapentin 100 MG CAP PO SCH ×3 (09:09→22:37)
[2018-08-23] MEDS: Docusate 100 MG CAP PO SCH (09:09)
[2018-08-23] MEDS: Lidocaine 5% Patch TD SCH (09:09)
[2018-08-23] MEDS: Nystatin Powder 15 GM BOT TOP SCH ×2 (09:10→22:37)
--- NOTE | 2018-08-23 10:33 | PQF ---
CLINICAL DOCUMENTATION IMPROVEMENT CLARIFICATION FORM: ICD-10 Updated PLEASE DO AN ADDENDUM TO THE PROGRESS NOTE WITH ANY DOCUMENTATION UPDATES OR ADDITIONS AND CARRY THROUGH TO DC SUMMARY. THANK YOU. DATE: 08/23/18; 08/24/18 ATTN: Dr. Michael; Dr. Newby Please exercise your independent, professional judgment in responding to the clarification form. Clinical indicators are provided on the bottom of this form for your review Diagnosis: ___ _ACUTE ON CHRONIC DIASTOLIC CHF_ Present on Admission (POA): [ ] Yes [ ] No [ ] Unable to determine Coding guidelines require hospitals to identify whether a diagnosis was present on admission (POA) or not. To accurately assign the appropriate POA indicator, this information must be clearly documented within the medical record. CLINICAL INDICATORS - SIGNS / SYMPTOMS / LABS H&P 08/17: REPORTS THAT HE MISSED DIALYSIS FOR THE LAST 2 OR 3 WEEKS. ALSO SOB OVER THE LAST 2 DAYS. VOLUME OVERLOAD, LIKELY SECONDARY TO MISSED DIALYSIS SESSIONS. SOB: MOST LIKELY SECONDARY TO VOLUME OVERLOAD CHEST 1 VIEW 08/18: CARDIOMEGALY. MILD VASCULAR ENGORGEMENT. ECHO 08/20: EF 45-50% PN 08-21/08-22 (Alec): ACUTE ON CHRONIC DIASTOLIC CHF RISKS: H&P: HX CAD, CHF, ATRIAL FIB, DM, HTN, ESRD ON HD. TREATMENT: RENAL CONSULT 08/18: UREMIA, PLAN DIALYSIS PN 08/19: CHECK ECHO to r/o CHF as well w/ ESRD Thank you, Emili (This form is maintained as a part of the permanent medical record) 2015 [employer]. All Rights Reserved Emili Ely RN, BSN [email or web address] Office: [phone] [facility]
[2018-08-23 12:28] VITALS: BMI 61.1
--- NOTE | 2018-08-23 18:56 | PRG ---
DATE OF SERVICE: 08/23/2018 SUBJECTIVE: Patient was seen and examined at bedside and overnight events noted. Patient denies any shortness of breath or chest pain or palpitation. No history of nausea or vomiting or diarrhea or fever or chills or cramps. OBJECTIVE: GENERAL: This is an obese male in no apparent distress. VITAL SIGNS: Temperature 98.1, pulse 87, respiratory 18, blood pressure 127/87. HEENT: Atraumatic, normocephalic. Oral mucosa is moist. NECK: Supple CARDIOVASCULAR: S1, S2 heard. Rate and rhythm regular. RESPIRATORY: Clear to auscultation. GASTROINTESTINAL: Abdomen is soft. MUSCULOSKELETAL: No tenderness, no edema. DERMATOLOGIC: No skin rash. NEUROLOGIC: Alert, awake, and oriented x3. No focal neurologic deficits. Moving all the extremities. PSYCHIATRIC: Mood and affect normal. LABORATORY DATA: Potassium 4.5, BUN is 49, creatinine is 4.7. ASSESSMENT AND PLAN: 1. End-stage renal disease. Continue on dialysis as tolerated. 2. Hypertension, stable. 3. Edema - remove fluid with dialysis as tolerated. 4. Anemia 6. Morbid obesity. Plan is to continue on dialysis as tolerated. MTDD
[2018-08-23] MEDS: rOPINIRole HCl 2 MG TAB PO SCH (22:36)
[2018-08-23] MEDS: Atorvastatin Calcium 20 MG TAB PO SCH (22:37)
[2018-08-24 05:15] LABS: Anion Gap 15 mmol/L (10-20); BUN (Urea Nitrogen) 55 mg/dL (8.4-25.7); Calc. Creatinine Clearance 37 mL/min (70-130); Calcium 8.7 mg/dL (7.8-10.44); Carbon Dioxide 27 mmol/L (22-29); Chloride 97 mmol/L (98-107); Estimated GFR-MDRD 11; Glucose 122 mg/dL (70-105); Potassium 4.6 mmol/L (3.5-5.1); Sodium 134 mmol/L (136-145)
[2018-08-24] MEDS: Levothyroxine Sodium 88 MCG TAB PO SCH (05:34)
[2018-08-24] MEDS: traMADol HCl 50 MG TAB PO PRN ×2 (05:34→15:20)
--- NOTE | 2018-08-24 07:50 | PDOC.PN ---
- Subjective Encounter Start Date: 08/23/18 Encounter Start Time: 09:45 follow up for missed HD, volume overload and physical deconditioning no F/c, no n/V/d/c, no CP or SOB, weak, but up with PT. approved for rehab, plan to D/C if bed available all systems reviewed and neg x as above - Objective MAR Reviewed: Yes Vital Signs & Weight: Vital Signs (12 hours) Temp Pulse Resp BP BP Pulse Ox 08/24/18 07:45 97.8 F 83 115/77 100 08/23/18 20:15 94 L 08/23/18 20:00 98.1 F 93 16 103/67 97 Weight Admit Weight 413 lb 4.8 oz Weight 399 lb 14.696 oz I&O: 08/23/18 08/24/18 08/25/18 06:59 06:59 06:59 Intake Total 900 Output Total 200 Balance -200 900 Result Diagrams: 08/18/18 06:35 08/24/18 04:00 Additional Labs: Accuchecks 08/23/18 08/23/18 08/23/18 20:41 15:24 11:50 POC Glucose 109 143 H 97 Phys Exam - Physical Examination Constitutional: NAD HEENT: PERRLA, moist MMs, sclera anicteric, oral pharynx no lesions Neck: no nodes, no JVD, supple, full ROM Respiratory: no wheezing, no rales, no rhonchi Cardiovascular: RRR, no significant murmur, no rub Gastrointestinal: soft, positive bowel sounds Musculoskeletal: edema present Neurological: non-focal, normal sensation, moves all 4 limbs Lymphatic: no nodes Psychiatric: normal affect, A&O x 3 Skin: no rash, normal turgor, cap refill <2 seconds Dx/Plan (1) Volume overload Code(s): E87.70 - FLUID OVERLOAD, UNSPECIFIED Status: Acute Qualifiers: Hypervolemia type: other Qualified Code(s): E87.79 - Other fluid overload Comment: Fluid removal per HD as tolerated (2) CAD (coronary artery disease) Code(s): I25.10 - ATHSCL HEART DISEASE OF [place] CORONARY ARTERY W/O ANG PCTRS Status: Chronic Qualifiers: Coronary Disease-Associated Artery/Lesion type: [place] artery [place] vs. transplanted heart: [place] heart Associated angina: without angina Qualified Code(s): I25.10 - Atherosclerotic heart disease of [place] coronary artery without angina pectoris (3) DM2 (diabetes mellitus, type 2) Status: Chronic Qualifiers: Diabetes mellitus sign wirer insulin use: unspecified half-way insulin use status Diabetes mellitus complication status: with kidney complications Diabetes mellitus complication detail: with chronic kidney disease Chronic kidney disease stage: on chronic dialysis Qualified Code(s): E11.22 - Type 2 diabetes mellitus with diabetic chronic kidney disease; N18.6 - End stage renal disease; Z99.2 - Dependence on renal dialysis (4) Acute on chronic diastolic heart failure Code(s): I50.33 - ACUTE ON CHRONIC DIASTOLIC (CONGESTIVE) HEART FAILURE Status : Acute (5) ESRD (end stage renal disease) on dialysis Code(s): N18.6 - END STAGE RENAL DISEASE; Z99.2 - DEPENDENCE ON RENAL DIALYSIS Status: Chronic Comment: had HD today, wed, Dr. Mejia following. (6) Gout Code(s): M10.9 - GOUT, UNSPECIFIED Status: Chronic Qualifiers: Gout site: unspecified site Gout etiology: unspecified cause Presence of tophus: without tophus Comment: No Exacerbation noted. (7) Hypertension Code(s): I10 - ESSENTIAL (PRIMARY) HYPERTENSION Status: Chronic Qualifiers: Hypertension type: essential hypertension Qualified Code(s): I10 - Essential (primary) hypertension (8) Morbid obesity due to excess calories Code(s): E66.01 - MORBID (SEVERE) OBESITY DUE TO EXCESS CALORIES Status: Chronic (9) Obesity hypoventilation syndrome Code(s): E66.2 - MORBID (SEVERE) OBESITY WITH ALVEOLAR HYPOVENTILATION Status : Chronic Comment: CPAP at night. (10) Paroxysmal a-fib Code(s): I48.0 - PAROXYSMAL ATRIAL FIBRILLATION Status: Chronic Comment: on Eliquis - Plan * .
[2018-08-24] MEDS: Docusate 100 MG CAP PO SCH (10:58)
[2018-08-24] MEDS: Gabapentin 100 MG CAP PO SCH ×3 (10:58→20:11)
[2018-08-24] MEDS: Nystatin Powder 15 GM BOT TOP SCH ×2 (11:00→20:13)
[2018-08-24] MEDS: Lidocaine 5% Patch TD SCH (11:02)
[2018-08-24] MEDS: Sevelamer Carbonate 800 MG TAB PO SCH ×3 (11:03→18:45)
--- NOTE | 2018-08-24 17:23 | PRG ---
DATE OF SERVICE: 08/24/2018 SUBJECTIVE: Patient was seen and examined at bedside and overnight events noted. Patient denies any shortness of breath or chest pain or palpitation. No history of nausea or vomitin g or diarrhea or fever or chills or cramps. OBJECTIVE: GENERAL: This is a morbidly obese male, in no apparent distress. VITAL SIGNS: Temperature 97.8, pulse 82, respiratory rate 18, blood pressure 115/77. HEENT: Atraumatic, normocephalic. Oral mucosa is moist. NECK: Supple. CARDIOVASCULAR: S1 and S2 heard. Rate and rhythm regular. RESPIRATORY: Clear to auscultation. GASTROINTESTINAL: Abdomen is soft. MUSCULOSKELETAL: No tenderness. No edema. DERMATOLOGIC: No skin rash. NEUROLOGIC: Alert and awake and oriented x3. No focal neurologic deficits. Moving all the extremit ies. PSYCHIATRIC: Mood and affect normal. LABORATORY DATA: Potassium is 4.6, BUN 55, creatinine 5.3. ASSESSMENT AND PLAN: 1. End-stage renal disease, on hemodialysis. Continue dialysis Tuesdays, and Saturdays. 2. Edema, controlled. 3. Hypertension, stable. 4. Morbid obesity. 5. Anemia, which chronic. Continue dialysis as tolerated.
--- NOTE | 2018-08-24 17:55 | PDOC.PN ---
- Subjective Encounter Start Date: 08/24/18 Encounter Start Time: 11:20 Pt seen for followup re: volume overload. Denies chest pain, shortness of breath, fevers or chills. - Objective MAR Reviewed: Yes Vital Signs & Weight: Vital Signs (12 hours) Temp Pulse BP Pulse Ox 08/24/18 07:45 97.8 F 83 115/77 100 Weight Admit Weight 413 lb 4.8 oz Weight 399 lb 14.696 oz I&O: 08/23/18 08/24/18 08/25/18 06:59 06:59 06:59 Intake Total 900 Output Total 200 Balance -200 900 Result Diagrams: 08/18/18 06:35 08/24/18 04:00 Additional Labs: Accuchecks 08/24/18 08/23/18 11:10 20:41 POC Glucose 121 H 109 labs reviewed by me Phys Exam - Physical Examination Constitutional: NAD HEENT: moist MMs Neck: supple Respiratory: clear to auscultation bilateral Cardiovascular: RRR Gastrointestinal: soft Neurological: moves all 4 limbs Psychiatric: normal affect Dx/Plan (1) Volume overload Code(s): E87.70 - FLUID OVERLOAD, UNSPECIFIED Status: Acute Qualifiers: Hypervolemia type: other Qualified Code(s): E87.79 - Other fluid overload Comment: Improving with dialysis (2) Acute on chronic diastolic heart failure Code(s): I50.33 - ACUTE ON CHRONIC DIASTOLIC (CONGESTIVE) HEART FAILURE Status : Acute Comment: Improving with dialysis. Present on admission. ACC AHA Class C, NYHA Class 3. (3) CAD (coronary artery disease) Code(s): I25.10 - ATHSCL HEART DISEASE OF [place] CORONARY ARTERY W/O ANG PCTRS Status: Chronic Qualifiers: Coronary Disease-Associated Artery/Lesion type: [place] artery [place] vs. transplanted heart: [place] heart Associated angina: without angina Qualified Code(s): I25.10 - Atherosclerotic heart disease of [place] coronary artery without angina pectoris Comment: stable (4) DM2 (diabetes mellitus, type 2) Status: Chronic Qualifiers: Diabetes mellitus intermodal dispatcher insulin use: unspecified intermodal dispatcher insulin use status Diabetes mellitus complication status: with kidney complications Diabetes mellitus complication detail: with chronic kidney disease Chronic kidney disease stage: on chronic dialysis Qualified Code(s): E11.22 - Type 2 diabetes mellitus with diabetic chronic kidney disease; N18.6 - End stage renal disease; Z99.2 - Dependence on renal dialysis Comment: controlled (5) ESRD (end stage renal disease) on dialysis Code(s): N18.6 - END STAGE RENAL DISEASE; Z99.2 - DEPENDENCE ON RENAL DIALYSIS Status: Chronic Comment: dialysis per nephrology service - Plan * . Awaiting Rehab bed Review of Systems - Review of Systems Constitutional: weakness Cardiovascular: negative: chest pain, palpitations, orthopnea, paroxysmal nocturnal dyspnea, edema, light headedness Gastrointestinal: negative: Nausea, Vomiting, Abdominal Pain, Diarrhea, Constipation, Melena, Hematochezia - Medications/Allergies Allergies/Adverse Reactions: Allergies Allergy/AdvReac Type Severity Reaction Status Date / Time quinapril HCl [From Accupril] Allergy Verified 05/08/18 08:07 Medications: Current Medications Acetaminophen (Tylenol) 650 mg PO Q4H PRN PRN Reason: PAIN 0-5 Al Hydroxide/Mg Hydroxide (Maalox) 30 ml PO Q4H PRN PRN Reason: Heartburn or Indigestion Last Admin: 08/20/18 14:30 Dose: 30 ml Apixaban (Eliquis) 2.5 mg PO DAILY [facility] Last Admin: 08/23/18 09:09 Dose: 2.5 mg Atorvastatin Calcium (Lipitor) 20 mg PO HS [facility] Last Admin: 08/23/18 22:37 Dose: 20 mg Bisacodyl (Dulcolax) 10 mg PO DAILYPRN PRN PRN Reason: Constipation Dextrose/Water (Dextrose 50%) 25 gm SLOW IVP PRN PRN PRN Reason: Hypoglycemia Docusate Sodium (Colace) 100 mg PO DAILY [facility] Last Admin: 08/24/18 10:58 Dose: 100 mg Epoetin Brain (Procrit) 10,000 units SC Q7D [facility] Last Admin: 08/19/18 12:09 Dose: 10,000 units Gabapentin (Neurontin) 100 mg PO TID [facility] Last Admin: 08/24/18 15:16 Dose: 100 mg Glucagon (Glucagon) 1 mg IM PRN PRN PRN Reason: Hypoglycemia Dextrose/Water (D5w) 1,000 mls @ 0 mls/hr IV .Q0M PRN PRN Reason: Hypoglycemia Insulin Human Lispro (Humalog) 0 units SC .MILD SLIDING SCALE PRN PRN Reason: Mild Correctional Scale Last Admin: 08/21/18 17:56 Dose: 2 unit Levothyroxine Sodium (Synthroid) 88 mcg PO 0600 [facility] Last Admin: 08/24/18 05:34 Dose: 88 mcg Lidocaine (Lidoderm 5% Patch) 1 patch TD DAILY [facility] Last Admin: 08/24/18 11:02 Dose: 1 patch Miscellaneous Medication (Lidocaine Patch Removal) 1 each TOP ASDIR [facility] Nitroglycerin (Nitrostat) 0.4 mg SL Q5MIN PRN PRN Reason: Chest Pain Last Admin: 08/20/18 14:30 Dose: 0.4 mg Nystatin (Mycostatin Powder) 0 gm TOP BID PRN PRN Reason: SKIN RASH Last Admin: 08/18/18 07:00 Dose: 1 applic Nystatin (Mycostatin Powder) 0 gm TOP BID [facility] Last Admin: 08/24/18 11:00 Dose: 1 appful Pantoprazole Sodium (Protonix) 40 mg PO DAILY [facility] Last Admin: 08/24/18 10:58 Dose: 40 mg Polyethylene Glycol (Miralax) 17 gm PO DAILY PRN PRN Reason: Constipation Ropinirole HCl (Requip) 4 mg PO HS [facility] Last Admin: 08/23/18 22:36 Dose: 4 mg Sertraline HCl (Zoloft) 25 mg PO DAILY [facility] Last Admin: 08/24/18 10:58 Dose: 25 mg Sevelamer Carbonate (Renvela) 1,600 mg PO TID-[facility] Last Admin: 08/24/18 12:15 Dose: Not Given Sodium Chloride (Flush - Normal Saline) 10 ml IVF PRN PRN PRN Reason: Saline Flush Tramadol HCl (Ultram) 50 mg PO Q6H PRN PRN Reason: Pain Last Admin: 08/24/18 15:20 Dose: 50 mg
[2018-08-24] MEDS: Apixaban 2.5 MG TAB PO SCH (18:45)
[2018-08-24] MEDS: Atorvastatin Calcium 20 MG TAB PO SCH (20:10)
[2018-08-24] MEDS: rOPINIRole HCl 2 MG TAB PO SCH (20:11)
[2018-08-25] MEDS: traMADol HCl 50 MG TAB PO PRN (03:26)
[2018-08-25 04:33] LABS: Anion Gap 13 mmol/L (10-20); BUN (Urea Nitrogen) 38 mg/dL (8.4-25.7); Calc. Creatinine Clearance 49 mL/min (70-130); Calcium 8.8 mg/dL (7.8-10.44); Carbon Dioxide 28 mmol/L (22-29); Chloride 96 mmol/L (98-107); Estimated GFR-MDRD 15; Glucose 99 mg/dL (70-105); Potassium 4.1 mmol/L (3.5-5.1); Sodium 133 mmol/L (136-145)
[2018-08-25] MEDS: Levothyroxine Sodium 88 MCG TAB PO SCH (05:30)
--- NOTE | 2018-08-25 07:40 | DIS ---
PRIMARY CARE PROVIDER: Raoul Watts MD DATE OF ADMISSION: 08/17/2018 DATE OF DISCHARGE: 08/24/2018 DISCHARGE DIAGNOSES: 1. Volume overload. 2. Acute on chronic diastolic congestive heart failure, [place] [employer] [employer] class C, present on admission. 3. Physical deconditioning. CONSULTATIONS DURING THIS HOSPITALIZATION: Nephrology, Dr. Julio Cesar Fonseca. DISCHARGE MEDICATIONS: No change was made to his preadmission home medications as dictated in my his tory and physical note, dated 08/17/2018. CONDITION OF PATIENT ON THE DAY OF DISCHARGE: Stable. I assessed Mr. Lyons on the day of discharge. He denies any chest pain or shortness of breath. Vital signs are stable. S1 and S2 are heard, reg ular. Lungs are clear to auscultation bilaterally. HOSPITAL COURSE: Mr. Lyons is a pleasant 58-year-old gentleman who was admitted to [facility] on 08/18/2018 for volume overload and acute on chronic diastolic congestive heart fa ilure. Please refer to my history and physical note dated 08/18/2018 for further details. He was se en by Nephrology Service and underwent hemodialysis. A 2D echocardiogram showed left ventricular eje ction fraction of 45% to 50%, moderately dilated left atrium, mild mitral regurgitation, and mild tri cuspid regurgitation. He improved clinically in terms of volume overload, but was also physically deconditioned. He was se en by therapy services. He has been evaluated for rehabilitation and is being discharged to [facility]. On the day of discharge, he has sodium 134, potassium 4.6, creatinine 55, blood urea nitrogen 15, and calcium 8.7. These parameters are prior to his dialysis. He will be dialyzed prior to discharge to inpatient rehabilitation. Many thanks for allowing me to participate in your patient's care. Please feel free to contact me wi th any questions or concerns. DISCHARGE DESTINATION: [facility]. TOTAL AMOUNT OF TIME SPENT COORDINATING THIS DISCHARGE: 33 minutes.
[2018-08-25] MEDS: Nystatin Powder 15 GM BOT TOP SCH (08:28)
[2018-08-25] MEDS: Gabapentin 100 MG CAP PO SCH (08:36)
[2018-08-25] MEDS: Lidocaine 5% Patch TD SCH (08:36)
[2018-08-25] MEDS: Docusate 100 MG CAP PO SCH (08:36)
[2018-08-25] MEDS: Apixaban 2.5 MG TAB PO SCH (08:36)
[2018-08-25] MEDS: Sevelamer Carbonate 800 MG TAB PO SCH (08:36)
[2018-08-25 11:05] VITALS: BP 162/92; TEMP 97.8
--- NOTE | 2018-08-25 17:56 | PRG ---
DATE OF SERVICE: 08/25/2018 SUBJECTIVE: Patient was seen and examined at bedside and overnight events noted. Patient denies any shortness of breath or chest pain or palpitation. No history of nausea or vomitin g or diarrhea or fever or chills or cramps. OBJECTIVE: GENERAL: This is a morbidly obese male, in no apparent distress. VITAL SIGNS: Temperature 97.8, pulse , respiratory rate , blood pressure 91/41. HEENT: Atraumatic, normocephalic. Oral mucosa is moist. NECK: Supple. CARDIOVASCULAR: S1 and S2 heard. Rate and rhythm regular. RESPIRATORY: Clear to auscultation. GASTROINTESTINAL: Abdomen is soft. MUSCULOSKELETAL: No tenderness. No edema. DERMATOLOGIC: No skin rash. NEUROLOGIC: Alert and awake and oriented x3. No focal neurologic deficits. Moving all the extremit ies. PSYCHIATRIC: Mood and affect normal. LABORATORY DATA: Potassium 4.1, BUN 30, creatinine 4.1. ASSESSMENT AND PLAN: 1. End-stage renal disease, on hemodialysis on Tuesday, , and Tuesday. 2. Edema, controlled. 3. Hypertension. 4. Morbid obesity. 5. Anemia. Plan is to continue dialysis Tuesday, , and Tuesday.
--- NOTE | 2018-08-26 19:40 | DIS ---
DATE OF ADMISSION: 08/17/2018 DATE OF DISCHARGE: 08/25/2018 For full discharge summary, please see the discharge summary by Dr. Newby dated 08/24/2018. Update, the patient had planned to go to rehab, however, acceptance got delayed. PHYSICAL EXAMINATION: VITAL SIGNS: On the day of discharge, temperature was 97.8, pulse 93, respirations 16, O2 sats 99% o n nasal cannula, BP is 162/92. GENERAL: The patient is awake and alert. HEART: Regular without murmurs. LUNGS: Clear. ABDOMEN: Benign. DISPOSITION: The patient will be discharged to rehabilitation. DISCHARGE INSTRUCTIONS: He will be on a diabetic heart healthy, renal diet. He will have PT, OT. S ee details from the previous dictation for the medication list. Further followup will be per the [facility].
== END 2018-08-25 13:12 | DRG 291 ==
LOC: ERS 19:16 → 2NO 20:50 → T4-A 08-21 21:05
PROVIDERS: ADMIT Internal Medicine; ATTEND Internal Medicine
PROC: 5A1D70Z Performance of Urinary Filtration, Intermittent, Less than 6 Hours Per Day (ICD-10-PCS; 2018-08-18)
PROC: 5A1D70Z Performance of Urinary Filtration, Intermittent, Less than 6 Hours Per Day (ICD-10-PCS; 2018-08-19)
PROC: 5A1D70Z Performance of Urinary Filtration, Intermittent, Less than 6 Hours Per Day (ICD-10-PCS; 2018-08-22)
PROC: 5A1D70Z Performance of Urinary Filtration, Intermittent, Less than 6 Hours Per Day (ICD-10-PCS; principal; 2018-08-24)
DX: I13.2 Hypertensive heart and chronic kidney disease with heart failure and with stage 5 chronic kidney disease, or end stage renal disease (principal); I50.33 Acute on chronic diastolic (congestive) heart failure; N18.6 End stage renal disease; N17.9 Acute kidney failure, unspecified; E66.2 Morbid (severe) obesity with alveolar hypoventilation; Z68.44 Body mass index [BMI] 60.0-69.9, adult; E87.70 Fluid overload, unspecified; I25.10 Atherosclerotic heart disease of native coronary artery without angina pectoris; E11.22 Type 2 diabetes mellitus with diabetic chronic kidney disease; Z99.2 Dependence on renal dialysis; E03.9 Hypothyroidism, unspecified; M19.90 Unspecified osteoarthritis, unspecified site; D63.1 Anemia in chronic kidney disease; M10.9 Gout, unspecified; I48.0 Paroxysmal atrial fibrillation; I87.8 Other specified disorders of veins; E87.5 Hyperkalemia; I08.1 Rheumatic disorders of both mitral and tricuspid valves; I25.2 Old myocardial infarction; Z83.3 Family history of diabetes mellitus
CPT/HCPCS: 36415; 36416; 71045; 80048; 80053; 82553; 83735; 84100; 84484; 85025; 86706; 87340; 90935; 93005; 93010; 93306; 94760; G0257; G8978-GP-CM; G8979-GP-CK; G8987-GO-CM; G8988-GO-CK; Q4081

== ENCOUNTER 2018-09-14 23:40 | Emergency (ER) | payer MEDICARE, MEDICAID ==
[2018-09-15 00:24] LABS: #Eosinphils 0.1 thou/uL (0.0-0.7); #Lymphocytes 0.8 thou/uL (1.20-3.40); #Monocytes 0.4 thou/uL (0.11-0.59); #Neutrophils 4.4 thou/uL (1.40-6.50); %Basophils 0.5 % (0.0-1.0); %Eosinophils 2.6 % (0.0-10.0); %Lymphocytes 13.5 % (21.0-51.0); %Monocytes 6.4 % (0.0-10.0); %Neutrophils 77.1 % (42.0-75.0); Hemoglobin 8.8 g/dL (14.0-18.0); Mean Corpuscular HGB CONC 30.9 g/dL (32.0-36.0); Mean Corpuscular Hemoglobin 29.3 pg (27.0-31.0); Mean Corpuscular Volume 94.7 fL (78.0-98.0); Mean Platelet Volume 8.1 fL (7.4-10.4); Platelet Count 184 thou/uL (130-400); RBC Distribution Width 15.3 % (11.5-14.5); White Blood Cell (WBC) Count 5.7 thou/uL (4.8-10.8)
[2018-09-15 00:28] LABS: Base Excess-Venous 1.1 mmol/L (0 (+/- 2.5)); Bicarbonate (HCO3v) 29.4 mmol/L (1.0-85.0); CO2 Tension (PvCO2) 66.4 mmHg (41.0-51.0); Calcium, Ionized 1.16 mmol/L (1.12-1.32); Hemoglobin - Calc 10.3 g/dL (12.0-18.0); O2 Tension (PvO2) 47.4 mmHg (35.0-45.0); Potassium 4.5 mmol/L (3.4-4.7); T. Carbon Dioxide 31.4 mmol/L (1.0-85.0); pH (Venous) 7.254 (7.35-7.45); vO2 Saturation-calc 74.7 % (94-98)
[2018-09-15 00:47] LABS: ALT (SGPT) Less than 7 U/L (8-55); AST (SGOT) 10 U/L (5-34); Albumin 3.4 g/dL (3.5-5.0); Alkaline Phosphatase 112 U/L (40-150); Anion Gap 19 mmol/L (10-20); BUN (Urea Nitrogen) 52 mg/dL (8.4-25.7); Bilirubin, Total 0.5 mg/dL (0.2-1.2); Calc. Creatinine Clearance 0 mL/min (70-130); Calcium 8.9 mg/dL (7.8-10.44); Carbon Dioxide 24 mmol/L (22-29); Chloride 98 mmol/L (98-107); Estimated GFR-MDRD 9; Globulin 3.8 g/dL (2.4-3.5); Glucose 131 mg/dL (70-105); Lipase 15 U/L (8-78); Magnesium 2.1 mg/dL (1.6-2.6); Potassium 4.8 mmol/L (3.5-5.1); Protein, Total 7.2 g/dL (6.0-8.3); Sodium 136 mmol/L (136-145)
[2018-09-15 00:50] LABS: CKMB 2.9 ng/mL (0-6.6); Troponin I 0.014 ng/mL (< 0.028)
[2018-09-15] MEDS ORDERED: Ondansetron ODT 8 MG TAB ONE (00:54)
--- NOTE | 2018-09-15 07:15 | RAD ---
CHEST 1 VIEW: HISTORY: Shortness of breath. COMPARISON: 08/18/2018. FINDINGS: Portable upright chest demonstrates cardiomegaly. Pulmonary vessels are prominent. Patchy interstit ial and alveolar infiltrates. No significant pleural fluid. No pneumothorax. IMPRESSION: Volume overload. Cardiomegaly. POS: [facility]
== END 2018-09-15 08:35 | disposition home or self-care (01) ==
LOC: ERS 23:40
DX: I13.0 Hypertensive heart and chronic kidney disease with heart failure and stage 1 through stage 4 chronic kidney disease, or unspecified chronic kidney disease (principal); N18.9 Chronic kidney disease, unspecified; I50.9 Heart failure, unspecified; E11.22 Type 2 diabetes mellitus with diabetic chronic kidney disease; I25.2 Old myocardial infarction; I49.9 Cardiac arrhythmia, unspecified; I48.91 Unspecified atrial fibrillation; E03.9 Hypothyroidism, unspecified; M19.90 Unspecified osteoarthritis, unspecified site; Z99.2 Dependence on renal dialysis; Z79.899 Other long term (current) drug therapy; Z79.01 Long term (current) use of anticoagulants; Z79.4 Long term (current) use of insulin
CPT/HCPCS: 36415; 71045; 80053; 82330; 82553; 82803; 83605; 83690; 83735; 84484; 85025; 93005

== ENCOUNTER 2018-09-19 09:47 | Observation (INO) | payer MEDICARE, MEDICAID ==
[2018-09-19 11:31] LABS: #Basophils 0.1 thou/uL (0.0-0.2); #Eosinphils 0.2 thou/uL (0.0-0.7); #Lymphocytes 0.9 thou/uL (1.20-3.40); #Monocytes 0.5 thou/uL (0.11-0.59); %Basophils 0.8 % (0.0-1.0); %Eosinophils 3.2 % (0.0-10.0); %Monocytes 6.8 % (0.0-10.0); %Neutrophils 75.2 % (42.0-75.0); Hemoglobin 9.2 g/dL (14.0-18.0); Mean Corpuscular HGB CONC 31.5 g/dL (32.0-36.0); Mean Corpuscular Volume 95.2 fL (78.0-98.0); Mean Platelet Volume 8.4 fL (7.4-10.4); Platelet Count 205 thou/uL (130-400); RBC Distribution Width 15.2 % (11.5-14.5); Red Blood Cell (RBC) Count 3.07 mill/uL (4.70-6.10); White Blood Cell (WBC) Count 6.6 thou/uL (4.8-10.8)
[2018-09-19 11:44] LABS: ALT (SGPT) Less than 7 U/L (8-55); AST (SGOT) 8 U/L (5-34); Albumin 3.4 g/dL (3.5-5.0); Alkaline Phosphatase 116 U/L (40-150); Anion Gap 19 mmol/L (10-20); BUN (Urea Nitrogen) 67 mg/dL (8.4-25.7); Bilirubin, Total 0.6 mg/dL (0.2-1.2); Calc. Creatinine Clearance 0 mL/min (70-130); Calcium 8.9 mg/dL (7.8-10.44); Carbon Dioxide 24 mmol/L (22-29); Chloride 101 mmol/L (98-107); Estimated GFR-MDRD 8; Globulin 3.8 g/dL (2.4-3.5); Glucose 153 mg/dL (70-105); Potassium 5.2 mmol/L (3.5-5.1); Protein, Total 7.2 g/dL (6.0-8.3); Sodium 139 mmol/L (136-145)
[2018-09-19 11:48] LABS: CKMB 4.4 ng/mL (0-6.6); Troponin I 0.013 ng/mL (< 0.028)
--- NOTE | 2018-09-19 11:49 | RAD ---
CHEST ONE VIEW: INDICATIONS: History of dyspnea and weakness. COMPARISON: 09/14/2018 FINDINGS: Since the comparison examination, the moderate cardiomegaly and pulmonary vascular congestion persist . No consolidation, pleural effusion, or pneumothorax is evident. The osseous structures are unchan ged. IMPRESSION: Stable cardiomegaly and mild pulmonary vascular congestion. POS: [facility]
[2018-09-19] MEDS ORDERED: Ondansetron ODT 4 MG TAB SL PRN (17:05)
[2018-09-19] MEDS ORDERED: Acetaminophen 325 MG TAB PO PRN (17:05)
[2018-09-19] MEDS ORDERED: Ondansetron PF 4 MG/2 ML Vial IVP PRN (17:05)
[2018-09-19 17:44] VITALS: BMI 69.9
[2018-09-19] MEDS ORDERED: HumaLOG 300 UNITS/3 ML VIAL SC PRN ×2 (17:48)
[2018-09-19] MEDS ORDERED: hydrALAZINE 20 MG/ML VIAL SLOW IVP PRN (17:48)
[2018-09-19] MEDS ORDERED: Dextrose 5% in Water 1,000 ML IV PRN (17:48)
[2018-09-19] MEDS ORDERED: cloNIDine 0.1 MG TAB PO PRN (17:48)
[2018-09-19] MEDS ORDERED: Dextrose 50% Abboject 50 ML SYRINGE SLOW IVP PRN (17:48)
[2018-09-19] MEDS ORDERED: Prevnar 13-Val Conj/PF 0.5 ML SYRINGE IM ONE (21:00)
[2018-09-19] MEDS ORDERED: Famotidine 20 MG TAB PO SCH (21:00)
[2018-09-19] MEDS: Acetaminophen 325 MG TAB PO PRN (22:35)
--- NOTE | 2018-09-19 23:06 | HP ---
PRIMARY CARE PHYSICIAN: Dr. Raoul Watts. CHIEF COMPLAINT: Feeling generally weak and missed dialysis. HISTORY OF PRESENT ILLNESS: Mr. Lyons is a pleasant 58-year-old gentleman who has a history of end-stage renal disease on hemodialysis. He also has diabetes mellitus and hypertension. He was in his usual state of health until the day prior to admission when he started feeling weak. He says that he has missed at least one, may be two sessions of dialysis. He says that he is not able to get dialysis on Saturdays due to the [facility]. He says that they only transport on Tuesday through Tuesday, and they only transport dialysis patients on Tuesdays and . For this reason, he is unable to get dialysis on Saturdays. He says he has tried numerous ways of trying to change the situation, but so far has been unsuccessful. Other than feeling generally weak, no other complaints such as chest pain or shortness of breath. No nausea, no vomiting, etc. REVIEW OF SYSTEMS: All systems were reviewed and are negative except for that mentioned in the history of present illness. PAST MEDICAL HISTORY: Significant for coronary artery disease, chronic systolic heart failure with an ejection fraction of 45% to 60%, atrial fibrillation, diabetes mellitus, hypothyroidism, hypertension, osteoarthritis, and end-stage renal disease on hemodialysis. PAST SURGICAL HISTORY: He has had an appendectomy, tonsillectomy, left leg surgery, and right AV shunt. FAMILY HISTORY: Significant for diabetes mellitus. ALLERGIES: QUINAPRIL AND ACCUPRIL. SOCIAL HISTORY: He is a nonsmoker and nondrinker. His code status is FULL CODE. CURRENT MEDICATIONS: Include: 1. Gabapentin 100 mg 3 times a day. 2. Atorvastatin 20 mg daily. 3. Fergon 240 mg once daily. 4. Ropinirole 2 mg once daily. 5. Eliquis 2.5 mg once a day. 6. Carvedilol 25 mg one to one-half tablet twice a day. 7. Levothyroxine 75 mcg once daily. 8. Tylenol No.3 q.4 as needed. 9. Pantoprazole 40 mg daily. 10. Sertraline 25 mg daily. 11. Sevelamer 800 mg t.i.d. 12. Lorazepam 0.5 mg twice daily. 13. Tramadol 50 mg q.6 as needed. PHYSICAL EXAMINATION: GENERAL: He is alert and oriented. He appears to be in no acute distress. He is currently sitting up on the stretcher, working with his cellphone. VITAL SIGNS: Blood pressure was 158/129, heart rate 99, respiratory rate of 18, and temperature is 98.0. HEENT: Pupils are equal, round, and reactive. Extraocular muscles are intact. His sclerae are anicteric. Throat, there is no erythema. No exudates. NECK: No adenopathy. No bruits. LUNGS: Clear to auscultation. There is no wheezing. No rales. No rhonchi. CARDIOVASCULAR: He has normal S1 and S2. There is no S3 or S4. No murmurs, clicks, or rubs. ABDOMEN: Obese and soft. He does have some mild erythema on the flanks of the abdomen on both the right and left side, but no tenderness. Organomegaly was unable to assess. EXTREMITIES: He has chronic venous stasis changes and some bronzish discoloration of the skin. No calf tenderness. No joint effusions or warmth. NEUROLOGIC: His muscle strength is intact. Cranial nerves 2 through 12 are intact. He does have some hammertoe deformities in the feet. SKIN AND INTEGUMENT: Other than chronic venous stasis, no other skin changes. LABORATORY DATA: On his chest x-ray per my reading, he has cardiomegaly with increased pulmonary vascular markings, but no effusion. On his EKG, he had sinus rhythm, the rate is 89, slow voltage, and he has what appears to be a conduction delay and premature ventricular complexes, this is by my reading. Sodium is 139, potassium 5.2, chloride is 101, CO2 is 24, BUN of 67, creatinine 6.84, and glucose is 153. White blood cell count is 6.6, hemoglobin 9.2, hematocrit is 29.2, and platelet count is 205. ASSESSMENT AND PLAN: This is a pleasant 58-year-old gentleman, who presents to the emergency room with generalized weakness. This is likely as a result of missed dialysis. He will be placed on observation. 1. For end-stage renal disease, we will consult Dr. Fonseca for his maintenance hemodialysis. Continue his other medications for renal replacement therapy. We will also consult case management to see if anything can be done to help with his compliance with dialysis. 2. Diabetes mellitus. We will continue his usual medications for diabetes as well as a sliding scale insulin. 3. Hypertension. Restart his antihypertensives as well as p.r.n. medications. 4. Atrial fibrillation. Currently his heart rate is controlled. Once again restart home medications and he is on Eliquis, the low-dose for stroke prevention. 5. Coronary artery disease. This appears to be stable and once again, we will continue home medications. Job ID: [id number]
[2018-09-20 04:37] LABS: #Eosinphils 0.3 thou/uL (0.0-0.7); #Lymphocytes 1.1 thou/uL (1.20-3.40); #Monocytes 0.4 thou/uL (0.11-0.59); #Neutrophils 4.7 thou/uL (1.40-6.50); %Basophils 0.5 % (0.0-1.0); %Eosinophils 4.4 % (0.0-10.0); %Lymphocytes 16.8 % (21.0-51.0); %Monocytes 6.8 % (0.0-10.0); %Neutrophils 71.5 % (42.0-75.0); Hemoglobin 8.7 g/dL (14.0-18.0); Mean Corpuscular HGB CONC 30.4 g/dL (32.0-36.0); Mean Corpuscular Hemoglobin 29.5 pg (27.0-31.0); Mean Corpuscular Volume 97.2 fL (78.0-98.0); Mean Platelet Volume 8.3 fL (7.4-10.4); Platelet Count 201 thou/uL (130-400); RBC Distribution Width 15.1 % (11.5-14.5); Red Blood Cell (RBC) Count 2.94 mill/uL (4.70-6.10); White Blood Cell (WBC) Count 6.6 thou/uL (4.8-10.8)
[2018-09-20 04:58] LABS: Anion Gap 17 mmol/L (10-20); BUN (Urea Nitrogen) 68 mg/dL (8.4-25.7); Calc. Creatinine Clearance 31 mL/min (70-130); Calcium 8.5 mg/dL (7.8-10.44); Carbon Dioxide 25 mmol/L (22-29); Chloride 101 mmol/L (98-107); Estimated GFR-MDRD 8; Glucose 113 mg/dL (70-105); Potassium 5.2 mmol/L (3.5-5.1); Sodium 138 mmol/L (136-145)
[2018-09-20] MEDS ORDERED: Lorazepam 0.5 MG TAB PO PRN (08:42)
[2018-09-20] MEDS ORDERED: Polyethylene Glycol 3350 17 GM Packet PO PRN (08:42)
[2018-09-20] MEDS: Docusate 100 MG CAP PO SCH ×2 (12:00→18:05)
[2018-09-20] MEDS: Sevelamer Carbonate 800 MG TAB PO SCH ×2 (12:00→18:09)
[2018-09-20] MEDS: Gabapentin 100 MG CAP PO SCH ×3 (12:00→21:24)
[2018-09-20] MEDS ORDERED: Apixaban 2.5 MG TAB PO SCH (12:30)
[2018-09-20 12:33] LABS: HBSAg Index 0.29 S/CO (0-0.99); Hep B Surf Ag Non-Reactive S/CO (NonReactive)
--- NOTE | 2018-09-20 14:51 | CON ---
DATE OF CONSULTATION: 09/19/2018 CONSULTING PHYSICIAN: Dr. Sosa. REASON FOR CONSULTATION: Evaluation REASON FOR ADMISSION: Shortness of breath. HISTORY OF PRESENT ILLNESS: This is a 58-year-old male with a history of coronary artery disease, congestive heart failure, end-stage renal disease, atrial fibrillation, and type 2 diabetes, came to the hospital with shortness of breath. He missed two dialysis in this year with shortness of breath. No fever or chills. No nausea or vomiting. No chest pain or palpitation. PAST MEDICAL HISTORY: congestive heart failure, coronary artery disease, atrial fibrillation, type 2 diabetes, hypothyroidism, hypertension, and osteoarthritis. PAST SURGICAL HISTORY: Appendectomy, tonsillectomy, left leg surgery, and AV fistula placement. HOME MEDICATIONS: 1. Ultram. 2. Ropinirole. 3. Zoloft. 4. MiraLax. 5. Sevelamer. 6. Protonix. 7. Lorazepam. 8. Levothyroxine. 9. Lipitor. 10. Eliquis. 11. Tylenol. 12. Neurontin. ALLERGIES: QUINAPRIL. SOCIAL HISTORY: No smoking, alcohol, or illicit drug abuse. FAMILY HISTORY: Significant for diabetes. REVIEW OF SYSTEMS: The following complete review of systems was negative, unless otherwise mentioned in the HPI or below: Constitutional: Weight loss or gain, ability to conduct usual activities. Skin: Rash, itching. Eyes: Double vision, pain. Ent/mouth: Nose bleeding, neck stiffness, pain, tenderness. Cardiovascular: Palpitations, dyspnea on exertion, orthopnea. Respiratory: Shortness of breath, wheezing, cough, hemoptysis, fever or night sweats. Gastrointestinal: Poor appetite, abdominal pain, heartburn, nausea,vomiting, constipation, or diarrhea. Genitourinary: Urgency, frequency, dysuria, nocturia. Musculoskeletal: Pain, swelling. Neurologic/psychiatric: Anxiety, depression. Allergy/immunologic: Skin rash, bleeding tendency. PHYSICAL EXAMINATION: GENERAL: Reveals a morbidly obese male, in no apparent distress. VITAL SIGNS: Temperature 98.8, respirations 16, and blood pressure 128/91. HEENT: Atraumatic and normocephalic. Oral mucosa is moist. NECK: Supple. CARDIOVASCULAR: S1 and S2. Heart rate and rhythm are regular. RESPIRATORY: Clear. GASTROINTESTINAL: Abdomen is soft. MUSCULOSKELETAL: trace edema DERMATOLOGIC: No rash. NEUROLOGIC: Alert and awake. PSYCHIATRIC: Mood and affect normal. LABORATORY DATA: Hemoglobin is 9.2. Potassium is 5.2, BUN is 67, and creatinine is 6.8. ASSESSMENT: 1. End-stage renal disease. We will continue dialysis as tolerated. 2. Hyperkalemia. Limit potassium. 3. Anemia. 4.Morbid obesity 5. Hypertension. PLAN: Plan is to continue on dialysis as tolerated. Monitor. Limit potassium in the diet. Job ID: [id number] [facility]
--- NOTE | 2018-09-20 16:58 | PDOC.PN ---
- Subjective Encounter Start Date: 09/20/18 Encounter Start Time: 16:57 Mr. Lyons was seen today in follow-up of ESRD and missed dialysis. He says he fells fine. I am seeing him during dialysis. He does endorse an occasional cough productive of some yellow phlem. He denies chest pain or dyspnea. - Objective Resuscitation Status - Order Detail: 09/19/18 16:40 Resuscitation Status Routine Resuscitation Status: FULL: Full Resuscitation MAR Reviewed: Yes Vital Signs & Weight: Vital Signs (12 hours) Temp Pulse Resp BP BP Pulse Ox 09/20/18 08:35 115/79 09/20/18 08:00 97.7 F 89 20 115/79 100 Weight Admit Weight 420 lb Weight 420 lb I&O: 09/19/18 09/20/18 09/21/18 06:59 06:59 06:59 Intake Total 120 Balance 120 Result Diagrams: 09/20/18 03:57 09/20/18 03:57 Additional Labs: Accuchecks 09/20/18 09/19/18 04:22 19:36 POC Glucose 124 H 151 H Phys Exam - Physical Examination HEENT: PERRLA Respiratory: no wheezing, no rales, no rhonchi, clear to auscultation bilateral Cardiovascular: RRR, no significant murmur, no rub Gastrointestinal: soft, non-tender, no distention, positive bowel sounds Musculoskeletal: edema present non-pitting edema of both lower extremities, mild erythema, Neurological: non-focal Dx/Plan (1) ESRD (end stage renal disease) on dialysis Code(s): N18.6 - END STAGE RENAL DISEASE; Z99.2 - DEPENDENCE ON RENAL DIALYSIS Status: Chronic Comment: dialysis per nephrology service (2) Chronic systolic heart failure Code(s): I50.22 - CHRONIC SYSTOLIC (CONGESTIVE) HEART FAILURE Status: Chronic Comment: [place], no exacerbation, pt has ACEI allergy, will continue coreg. (3) DM2 (diabetes mellitus, type 2) Status: Chronic Qualifiers: Diabetes mellitus fpc insulin use: unspecified media supervisor insulin use status Diabetes mellitus complication status: with kidney complications Diabetes mellitus complication detail: with chronic kidney disease Chronic kidney disease stage: on chronic dialysis Qualified Code(s): E11.22 - Type 2 diabetes mellitus with diabetic chronic kidney disease; N18.6 - End stage renal disease; Z99.2 - Dependence on renal dialysis Comment: controlled (4) Hypertension Code(s): I10 - ESSENTIAL (PRIMARY) HYPERTENSION Status: Chronic Qualifiers: Hypertension type: essential hypertension Qualified Code(s): I10 - Essential (primary) hypertension (5) Atrial fibrillation Code(s): I48.91 - UNSPECIFIED ATRIAL FIBRILLATION Status: Chronic - Plan * ESRD- patient has missed dialysis- he is currently receiving this now * HTN- blood pressure is controlled\ * DM- blood glucose is stable * AFIB- his heart rate is controlled * Will need case management/ financial input regarding his transportation to dialysis.
[2018-09-20] MEDS: Lidocaine 5% Patch TD SCH (18:05)
[2018-09-20] MEDS: Epoetin (ESRD) 10,000 UNITS/ML VIAL SC SCH (18:08)
[2018-09-20] MEDS ORDERED: Ropinirole Hcl [Ropinirole Er] 4 MG PO SCH (21:00)
[2018-09-20] MEDS: Atorvastatin Calcium 20 MG TAB PO SCH (21:24)
[2018-09-21] MEDS: traMADol HCl 50 MG TAB PO PRN ×2 (00:23→17:37)
[2018-09-21] MEDS: Acetaminophen 325 MG TAB PO PRN (00:23)
[2018-09-21] MEDS: Lidocaine Patch Removal 1 EACH TOP SCH (00:25)
[2018-09-21] MEDS: Levothyroxine Sodium 88 MCG TAB PO SCH (05:10)
[2018-09-21] MEDS: Sevelamer Carbonate 800 MG TAB PO SCH ×3 (08:55→17:29)
[2018-09-21] MEDS: Apixaban 2.5 MG TAB PO SCH (08:57)
[2018-09-21] MEDS: Docusate 100 MG CAP PO SCH (08:57)
[2018-09-21] MEDS: Gabapentin 100 MG CAP PO SCH ×3 (08:58→20:53)
[2018-09-21] MEDS: Insulin Glargine 5 UNITS in Pre-Filled Syringe 1 EACH SC SCH (09:00)
--- NOTE | 2018-09-21 11:25 | PRG ---
DATE OF SERVICE: 09/21/2018 SUBJECTIVE: Patient was seen and examined at bedside and overnight events noted. Patient denies any shortness of breath or chest pain or palpitation. No history of nausea or vomiting or diarrhea or fever or chills or cramps. OBJECTIVE: GENERAL: This is a morbidly obese male, in no apparent distress. VITAL SIGNS: Temperature 98, pulse 91, respiratory rate 21, blood pressure 119/81. HEENT: Atraumatic, normocephalic. Oral mucosa is moist NECK: Supple. CARDIOVASCULAR: S1, S2 heard. Rate and rhythm regular. RESPIRATORY: Clear to auscultation. GASTROINTESTINAL: Abdomen is soft. MUSCULOSKELETAL: No tenderness. No edema. DERMATOLOGIC: No skin rash. NEUROLOGIC: Alert and awake and oriented X3. No focal neurologic deficits. Moving all the extremities. PSYCHIATRIC: Mood and affect normal. LABORATORY DATA: ASSESSMENT AND PLAN: 1. End-stage renal disease. We will have 3 hours of dialysis today. 2. Hyperkalemia, better. 3. Edema. 4. Hypertension. 5. Anemia. PLAN: Plan is to continue dialysis today and then TTS as tolerated. Job ID: [id number]
[2018-09-21] MEDS: Lidocaine 5% Patch TD SCH (12:01)
--- NOTE | 2018-09-21 14:55 | PDOC.PN ---
- Subjective Encounter Start Date: 09/21/18 Encounter Start Time: 14:54 Mr. Lyons was seen today in follow-up ESRD on dialysis. He does not have any complaints. - Objective Resuscitation Status - Order Detail: 09/19/18 16:40 Resuscitation Status Routine Resuscitation Status: FULL: Full Resuscitation MAR Reviewed: Yes Vital Signs & Weight: Vital Signs (12 hours) Temp Pulse Resp BP Pulse Ox 09/21/18 11:45 99.3 F 96 19 123/81 92 L 09/21/18 07:16 98.8 F 91 21 H 119/81 92 L 09/21/18 03:46 98.4 F 97 20 104/69 92 L Weight Admit Weight 420 lb Weight 420 lb I&O: 09/20/18 09/21/18 09/22/18 06:59 06:59 06:59 Intake Total 320 360 Output Total 4700 Balance -4380 360 Result Diagrams: 09/20/18 03:57 09/20/18 03:57 Additional Labs: Accuchecks 09/21/18 09/21/18 09/20/18 11:44 04:39 19:52 POC Glucose 124 H 116 H 109 09/20/18 18:15 POC Glucose 86 Phys Exam - Physical Examination Respiratory: no wheezing, no rales, no rhonchi, clear to auscultation bilateral Cardiovascular: RRR, no significant murmur, no rub Gastrointestinal: soft, non-tender, no distention, positive bowel sounds Musculoskeletal: edema present 1+ edema Dx/Plan (1) ESRD (end stage renal disease) on dialysis Code(s): N18.6 - END STAGE RENAL DISEASE; Z99.2 - DEPENDENCE ON RENAL DIALYSIS Status: Chronic Comment: dialysis per nephrology service (2) Chronic systolic heart failure Code(s): I50.22 - CHRONIC SYSTOLIC (CONGESTIVE) HEART FAILURE Status: Chronic Comment: [place], no exacerbation, pt has ACEI allergy, will continue coreg. (3) DM2 (diabetes mellitus, type 2) Status: Chronic Qualifiers: Diabetes mellitus usp insulin use: unspecified usp insulin use status Diabetes mellitus complication status: with kidney complications Diabetes mellitus complication detail: with chronic kidney disease Chronic kidney disease stage: on chronic dialysis Qualified Code(s): E11.22 - Type 2 diabetes mellitus with diabetic chronic kidney disease; N18.6 - End stage renal disease; Z99.2 - Dependence on renal dialysis Comment: controlled (4) Hypertension Code(s): I10 - ESSENTIAL (PRIMARY) HYPERTENSION Status: Chronic Qualifiers: Hypertension type: essential hypertension Qualified Code(s): I10 - Essential (primary) hypertension (5) Atrial fibrillation Code(s): I48.91 - UNSPECIFIED ATRIAL FIBRILLATION Status: Chronic - Plan * ESRD- continue Dialysis as per Nephrology * DM- blood glucose is stable * HTN- blood pressure is stable. * Chronic systolic heart failure- compensated * AFIB- heart rate is stable
[2018-09-21] MEDS: Atorvastatin Calcium 20 MG TAB PO SCH (20:32)
--- NOTE | 2018-09-21 22:46 | PRG ---
DATE OF SERVICE: 09/20/2018 SUBJECTIVE: Patient was seen and examined at bedside and overnight events noted. Patient denies any shortness of breath or chest pain or palpitation. No history of nausea or vomiting or diarrhea or fever or chills or cramps. OBJECTIVE: GENERAL: This is a morbidly obese male, in no apparent distress. VITAL SIGNS: Temperature 97.7. Heart rate 89. Respiratory rate . Blood pressure 115/79. HEENT: Atraumatic, normocephalic. Oral mucosa is moist NECK: Supple. CARDIOVASCULAR: S1, S2 heard. Rate and rhythm regular. RESPIRATORY: Clear to auscultation. GASTROINTESTINAL: Abdomen is soft. MUSCULOSKELETAL: No tenderness. No edema. DERMATOLOGIC: No skin rash. NEUROLOGIC: Alert and awake and oriented X3. No focal neurologic deficits. Moving all the extremities. PSYCHIATRIC: Mood and affect normal. LABORATORY DATA: Potassium 5.2, BUN is 68, creatinine is 6.8. ASSESSMENT: 1. End-stage renal disease. Continue dialysis on Tuesday, , and Tuesday. 2. Hyperkalemia. Limit potassium. 3. Anemia. Monitor hemoglobin. 4. Hypertension. 5. Morbid obesity PLAN: continue dialysis on Tuesday, , and Tuesday. Job ID: [id number] [facility]
[2018-09-22] MEDS: Acetaminophen 325 MG TAB PO PRN ×3 (01:36→20:07)
[2018-09-22] MEDS: Lidocaine Patch Removal 1 EACH TOP SCH (01:41)
[2018-09-22] MEDS: Levothyroxine Sodium 88 MCG TAB PO SCH (05:15)
[2018-09-22] MEDS: Sevelamer Carbonate 800 MG TAB PO SCH ×3 (08:15→17:02)
[2018-09-22] MEDS: Docusate 100 MG CAP PO SCH (08:16)
[2018-09-22] MEDS: Gabapentin 100 MG CAP PO SCH ×3 (08:16→20:07)
[2018-09-22] MEDS: Apixaban 2.5 MG TAB PO SCH (08:18)
[2018-09-22] MEDS: Insulin Glargine 5 UNITS in Pre-Filled Syringe 1 EACH SC SCH ×2 (08:19→11:27)
[2018-09-22] MEDS: Lidocaine 5% Patch TD SCH (11:28)
--- NOTE | 2018-09-22 15:49 | PRG ---
DATE OF SERVICE: 09/22/2018 SUBJECTIVE: Patient was seen and examined at bedside and overnight events noted. Patient denies any shortness of breath or chest pain or palpitation. No history of nausea or vomiting or diarrhea or fever or chills or cramps. OBJECTIVE: GENERAL: Morbidly obese male, in no apparent distress. VITAL SIGNS: Temperature , pulse 75, respirations 16, blood pressure 131/69. HEENT: Atraumatic, normocephalic. Oral mucosa is moist NECK: Supple. CARDIOVASCULAR: S1, S2 heard. Rate and rhythm regular. RESPIRATORY: Clear to auscultation. GASTROINTESTINAL: Abdomen is soft. MUSCULOSKELETAL: No tenderness. No edema. DERMATOLOGIC: No skin rash. NEUROLOGIC: Alert and awake and oriented X3. No focal neurologic deficits. Moving all the extremities. PSYCHIATRIC: Mood and affect normal. LABORATORY DATA: Not done today. ASSESSMENT AND PLAN: 1. End-stage renal disease, on hemodialysis. We will continue dialysis on Tuesday, , and Tuesday. 2. Hyperkalemia. Limit potassium. 3. Edema. 4. Hypertension. 5. Anemia. We will monitor hemoglobin. PLAN: We will continue on dialysis as tolerated. Job ID: [id number]
--- NOTE | 2018-09-22 17:30 | PDOC.PN ---
- Subjective Encounter Start Date: 09/22/18 Encounter Start Time: 12:55 Subjective: pt up in bed no complains - Objective Resuscitation Status - Order Detail: 09/19/18 16:40 Resuscitation Status Routine Resuscitation Status: FULL: Full Resuscitation Vital Signs & Weight: Vital Signs (12 hours) Temp Pulse Resp BP Pulse Ox Pulse Ox 09/22/18 16:00 98.7 F 84 16 125/85 09/22/18 14:06 97 09/22/18 11:08 98.4 F 75 16 131/69 97 09/22/18 07:50 98.7 F 73 16 112/69 99 Weight Admit Weight 420 lb Weight 420 lb I&O: 09/21/18 09/22/18 09/23/18 06:59 06:59 06:59 Intake Total 320 960 Output Total 4700 4000 Balance -4380 -3040 Result Diagrams: 09/20/18 03:57 09/20/18 03:57 Additional Labs: Accuchecks 09/22/18 09/22/18 09/22/18 16:26 11:07 04:50 POC Glucose 118 H 108 112 H 09/21/18 09/21/18 20:12 17:24 POC Glucose 124 H 129 H Phys Exam - Physical Examination Neck: no nodes, no JVD, supple, full ROM Respiratory: no wheezing, no rales, no rhonchi, wheezing present, clear to auscultation bilateral Cardiovascular: RRR, no significant murmur, no rub, gallop, irregular Dx/Plan (1) ESRD (end stage renal disease) on dialysis Code(s): N18.6 - END STAGE RENAL DISEASE; Z99.2 - DEPENDENCE ON RENAL DIALYSIS Status: Chronic Comment: dialysis per nephrology service (2) DM2 (diabetes mellitus, type 2) Status: Chronic Qualifiers: Diabetes mellitus [employer] insulin use: unspecified [employer] insulin use status Diabetes mellitus complication status: with kidney complications Diabetes mellitus complication detail: with chronic kidney disease Chronic kidney disease stage: on chronic dialysis Qualified Code(s): E11.22 - Type 2 diabetes mellitus with diabetic chronic kidney disease; N18.6 - End stage renal disease; Z99.2 - Dependence on renal dialysis Comment: controlled (3) Atrial fibrillation Code(s): I48.91 - UNSPECIFIED ATRIAL FIBRILLATION Status: Chronic (4) Morbid obesity due to excess calories Code(s): E66.01 - MORBID (SEVERE) OBESITY DUE TO EXCESS CALORIES Status: Chronic - Plan pt was not able to go today since his dialysis center has discharged -: him. will continue his medication. * . Review of Systems - Review of Systems Respiratory: negative: Cough, Dry, Shortness of Breath, Hemoptysis, SOB with Excertion, Pleuritic Pain, Sputum, Wheezing Cardiovascular: negative: chest pain, palpitations, orthopnea, paroxysmal nocturnal dyspnea, edema, light headedness, other Gastrointestinal: negative: Nausea, Vomiting, Abdominal Pain, Diarrhea, Constipation, Melena, Hematochezia, Other Genitourinary: negative: Dysuria, Frequency, Incontinence, Hematuria, Retention , Other - Medications/Allergies Allergies/Adverse Reactions: Allergies Allergy/AdvReac Type Severity Reaction Status Date / Time quinapril HCl [From Accupril] Allergy Verified 09/19/18 17:43 Medications: Current Medications Acetaminophen (Tylenol) 650 mg PO Q4H PRN PRN Reason: Headache/Fever/Mild Pain (1-3) Last Admin: 09/22/18 05:23 Dose: 650 mg Apixaban (Eliquis) 2.5 mg PO DAILY [facility] Last Admin: 09/22/18 08:18 Dose: 2.5 mg Atorvastatin Calcium (Lipitor) 20 mg PO HS [facility] Last Admin: 09/21/18 20:32 Dose: 20 mg Clonidine (Catapres) 0.1 mg PO Q4H PRN PRN Reason: SBP > ____ Dextrose/Water (Dextrose 50%) 25 gm SLOW IVP PRN PRN PRN Reason: Hypoglycemia Docusate Sodium (Colace) 100 mg PO DAILY [facility] Last Admin: 09/22/18 08:16 Dose: 100 mg Epoetin Brain (Procrit) 10,000 units SC Q7D [facility] Last Admin: 09/20/18 18:08 Dose: 10,000 units Gabapentin (Neurontin) 100 mg PO TID [facility] Last Admin: 09/22/18 15:02 Dose: 100 mg Glucagon (Glucagon) 1 mg IM PRN PRN PRN Reason: Hypoglycemia Hydralazine HCl (Apresoline) 10 mg SLOW IVP Q4H PRN PRN Reason: SBP > 180 and HR < 70 Dextrose/Water (D5w) 1,000 mls @ 0 mls/hr IV .Q0M PRN PRN Reason: Hypoglycemia Insulin Glargine 5 units/ (Miscellaneous Medication) 0.05 mls @ 0 mls/hr SC QAM [facility] Last Admin: 09/22/18 11:27 Dose: 0.05 mls Insulin Human Lispro (Humalog) 0 units SC .MODERATE SLIDING SC PRN PRN Reason: Moderate Correctional Scale Insulin Human Lispro (Humalog) 0 units SC .BEDTIME SLIDING SC PRN PRN Reason: Bedtime Correctional Scale Levothyroxine Sodium (Synthroid) 88 mcg PO 0600 [facility] Last Admin: 09/22/18 05:15 Dose: 88 mcg Lidocaine (Lidoderm 5% Patch) 1 patch TD 1300 [facility] Last Admin: 09/22/18 11:28 Dose: 1 patch Lorazepam (Ativan) 0.5 mg PO BID PRN PRN Reason: Anxiety Metoprolol Succinate (Toprol Xl) 12.5 mg PO DAILY [facility] Last Admin: 09/22/18 08:17 Dose: 12.5 mg Miscellaneous Medication (Lidocaine Patch Removal) 1 each TOP 0100 [facility] Last Admin: 09/22/18 01:41 Dose: 1 each Ondansetron HCl (Zofran Odt) 4 mg PO Q6H PRN PRN Reason: Nausea/Vomiting Pantoprazole Sodium (Protonix) 40 mg PO DAILY [facility] Last Admin: 09/22/18 08:16 Dose: 40 mg Ropinirole Hcl [ (Ropinirole Er] 4 Mg) 1 each PO HS [facility] Polyethylene Glycol (Miralax) 17 gm PO DAILY PRN PRN Reason: Constipation Sertraline HCl (Zoloft) 25 mg PO DAILY [facility] Last Admin: 09/22/18 08:17 Dose: 25 mg Sevelamer Carbonate (Renvela) 1,600 mg PO TID-[facility] Last Admin: 09/22/18 17:02 Dose: 1,600 mg Tramadol HCl (Ultram) 50 mg PO Q6HR PRN PRN Reason: Moderate Pain (4-6) Last Admin: 09/21/18 17:37 Dose: 50 mg
[2018-09-22] MEDS: Atorvastatin Calcium 20 MG TAB PO SCH (20:07)
[2018-09-23] MEDS: Lidocaine Patch Removal 1 EACH TOP SCH (01:56)
[2018-09-23 05:16] LABS: Anion Gap 17 mmol/L (10-20); BUN (Urea Nitrogen) 43 mg/dL (8.4-25.7); Calc. Creatinine Clearance 41 mL/min (70-130); Calcium 8.8 mg/dL (7.8-10.44); Carbon Dioxide 24 mmol/L (22-29); Chloride 98 mmol/L (98-107); Estimated GFR-MDRD 11; Glucose 125 mg/dL (70-105); Potassium 4.8 mmol/L (3.5-5.1); Sodium 134 mmol/L (136-145)
[2018-09-23] MEDS: Levothyroxine Sodium 88 MCG TAB PO SCH (05:46)
[2018-09-23] MEDS: Gabapentin 100 MG CAP PO SCH (08:03)
[2018-09-23] MEDS: Insulin Glargine 5 UNITS in Pre-Filled Syringe 1 EACH SC SCH (08:03)
[2018-09-23] MEDS: Apixaban 2.5 MG TAB PO SCH (08:03)
[2018-09-23] MEDS: Sevelamer Carbonate 800 MG TAB PO SCH ×3 (08:03→18:11)
[2018-09-23] MEDS: Docusate 100 MG CAP PO SCH (08:04)
[2018-09-23] MEDS: traMADol HCl 50 MG TAB PO PRN (08:06)
--- NOTE | 2018-09-23 13:00 | PRG ---
DATE OF SERVICE: 09/23/2018 SUBJECTIVE: The patient was seen and examined at the bedside. He complains about constipation. His appetite is fair. OBJECTIVE: VITAL SIGNS: Blood pressure is 148/79, pulse is 92, temperature is 98.7, respiratory rate 22, and O2 saturation is 96% on 2 L per nasal cannula. He is obese man. His weight is 420 pounds. HEENT: Head is atraumatic and normocephalic. Eyes are PERRLA. Sclerae nonicteric. Conjunctivae pinkish. Oral mucosa is moist. NECK: obese. LUNGS: Breath sounds diminished at both bases. HEART: S1 and S2, somewhat distant. No S3. No S4. ABDOMEN: Soft, obese, nontender, and nondistended. EXTREMITIES: 2+ peripheral edema seen bilaterally in upper and lower extremities. NEUROLOGIC: He is alert and oriented x4. There are no any motor deficits. He is able to follow my commands. Moves his all 4 extremities. LABORATORY DATA: Sodium of 134, potassium 4.8, chloride 98, CO2 of 24, BUN 43, creatinine 5.16, glucose is ranging from 108 to 137, and calcium 8.8. IMPRESSION: 1. End-stage renal disease, on dialysis. Apparently, at the previous center dropped him because of his noncompliance. He was missing a lot of dialysis sessions and at this point, we are in the process of obtaining a new provider and center for outpatient treatments. 2. Diabetes mellitus, well controlled, chronic. 3. Atrial fibrillation, rate controlled, on anticoagulant. 4. Anticoagulation to chronic atrial fibrillation. 5. Morbid obesity due to excess calories. 6. Chronic constipation most likely related to his bedridden lifestyle and multiple medications, which can have this constipation as a side effect. We will keep him on MiraLax 17 g daily, which should help and try to eliminate gabapentin from his regimen, if possible because of his constipation. 7. Normocytic anemia related to his renal failure. PLAN: As mentioned above. Job ID: [id number]
[2018-09-23] MEDS: Lidocaine 5% Patch TD SCH (14:51)
--- NOTE | 2018-09-23 14:59 | EKG ---
Test Reason : Blood Pressure : / mmHG Vent. Rate : 089 BPM Atrial Rate : 089 BPM P-R Int : 148 ms QRS Dur : 032 ms QT Int : 308 ms P-R-T Axes : -11 120 -15 degrees QTc Int : 374 ms Sinus rhythm with Premature supraventricular complexes with occasional Premature ventricular complexe s Indeterminate axis Pulmonary disease pattern Possible Right ventricular hypertrophy Septal infarct , age undetermined Lateral injury pattern * ACUTE TX * Abnormal ECG Confirmed by BRIANA MCGHEE ([id number]), editor book RENÉ ALEXANDER ([id number]) on 09/23/2018 2:58:44 PM Referred By: Confirmed By:BRIANA MCGHEE
[2018-09-23] MEDS: Atorvastatin Calcium 20 MG TAB PO SCH (20:22)
--- NOTE | 2018-09-23 20:40 | PRG ---
DATE OF SERVICE: 09/23/2018 SUBJECTIVE: Patient was seen and examined at bedside and overnight events noted. Patient denies any shortness of breath or chest pain or palpitation. No history of nausea or vomiting or diarrhea or fever or chills or cramps. OBJECTIVE: GENERAL: This is a morbidly obese male, in no apparent distress. VITAL SIGNS: Temperature 97.6. Heart rate 82. Respiratory rate 21. Blood pressure 117/74. HEENT: Atraumatic, normocephalic. Oral mucosa is moist NECK: Supple. CARDIOVASCULAR: S1, S2 heard. Rate and rhythm regular. RESPIRATORY: Clear to auscultation. GASTROINTESTINAL: Abdomen is soft. MUSCULOSKELETAL: No tenderness. No edema. DERMATOLOGIC: No skin rash. NEUROLOGIC: Alert and awake and oriented X3. No focal neurologic deficits. Moving all the extremities. PSYCHIATRIC: Mood and affect normal. LABORATORY DATA: Potassium is 4.8, BUN is 43, and creatinine 5.6. ASSESSMENT AND PLAN: 1. End-stage renal disease, continue dialysis on Tuesday, , and Tuesday. 2. Hyperkalemia. Limit potassium. 3. Edema. 4. Hypertension. PLAN: Plan is to continue on dialysis on Tuesday, , and Tuesday. Follow with Case Management for outpatient placement. Job ID: [id number]
[2018-09-24] MEDS: Lidocaine Patch Removal 1 EACH TOP SCH (01:02)
[2018-09-24] MEDS: Levothyroxine Sodium 88 MCG TAB PO SCH (06:04)
[2018-09-24] MEDS: Insulin Glargine 5 UNITS in Pre-Filled Syringe 1 EACH SC SCH (08:57)
[2018-09-24] MEDS: Docusate 100 MG CAP PO SCH (08:58)
[2018-09-24] MEDS: Sevelamer Carbonate 800 MG TAB PO SCH ×3 (08:58→18:30)
[2018-09-24] MEDS: Apixaban 2.5 MG TAB PO SCH (08:58)
[2018-09-24] MEDS: Polyethylene Glycol 3350 17 GM Packet PO SCH (08:58)
[2018-09-24] MEDS: Lidocaine 5% Patch TD SCH (14:14)
[2018-09-24] MEDS: traMADol HCl 50 MG TAB PO PRN (20:27)
[2018-09-24] MEDS: Acetaminophen 325 MG TAB PO PRN (20:27)
[2018-09-24] MEDS: Atorvastatin Calcium 20 MG TAB PO SCH (20:27)
[2018-09-24] MEDS ORDERED: Preparation H Ointment 28 GM TUBE TOP PRN (22:06)
[2018-09-25] MEDS: Lidocaine Patch Removal 1 EACH TOP SCH (02:22)
[2018-09-25] MEDS: Acetaminophen 325 MG TAB PO PRN (03:34)
[2018-09-25] MEDS: Levothyroxine Sodium 88 MCG TAB PO SCH (03:34)
[2018-09-25] MEDS: traMADol HCl 50 MG TAB PO PRN ×2 (03:35→13:31)
[2018-09-25] MEDS: Sevelamer Carbonate 800 MG TAB PO SCH ×3 (07:47→17:02)
[2018-09-25] MEDS: Docusate 100 MG CAP PO SCH (07:48)
[2018-09-25] MEDS: Polyethylene Glycol 3350 17 GM Packet PO SCH (07:48)
[2018-09-25] MEDS: Apixaban 2.5 MG TAB PO SCH (07:49)
[2018-09-25] MEDS: Insulin Glargine 5 UNITS in Pre-Filled Syringe 1 EACH SC SCH (07:49)
--- NOTE | 2018-09-25 07:49 | PRG ---
DATE OF SERVICE: 09/24/2018 SUBJECTIVE: Patient was seen and examined at bedside and overnight events noted. Patient denies any shortness of breath or chest pain or palpitation. No history of nausea or vomiting or diarrhea or fever or chills or cramps. OBJECTIVE: GENERAL: This is a morbidly obese male, in no apparent distress. VITAL SIGNS: Temperature 98.3, pulse 87, respiratory rate 16, blood pressure 144/44. HEENT: Atraumatic, normocephalic. Oral mucosa is moist NECK: Supple. CARDIOVASCULAR: S1, S2 heard. Rate and rhythm regular. RESPIRATORY: Clear to auscultation. GASTROINTESTINAL: Abdomen is soft. MUSCULOSKELETAL: No tenderness. No edema. DERMATOLOGIC: No skin rash. NEUROLOGIC: Alert and awake and oriented X3. No focal neurologic deficits. Moving all the extremities. PSYCHIATRIC: Mood and affect normal. LABORATORY DATA: None. ASSESSMENT AND PLAN: 1. End-stage renal disease, continue dialysis on Tuesday, , and Tuesday. Follow with Case Management for outpatient placement. 2. Hyperkalemia. 3. Edema. 4. Hypertension. 5. Anemia. 6. Morbid obesity. The patient needs setup for outpatient dialysis since he was discharged from current clinic. We will follow with Case Management. Job ID: [id number]
--- NOTE | 2018-09-25 07:50 | PRG ---
DATE OF SERVICE: 09/24/2018 SUBJECTIVE: The patient was seen and examined at the bedside. He does not have much complaints to offer. OBJECTIVE: VITAL SIGNS: Blood pressure is 114/60, pulse is 82, temperature is 98.9, respiratory rate is 18, and O2 saturation is 94% on 2 L by nasal cannula. He is obese man. His BMI is 69.9. Weight is 425 pounds. HEENT: His head is atraumatic and normocephalic. Eyes are PERRLA. Sclerae are nonicteric. Conjunctivae are palish. Oral mucosa is moist. NECK: Supple. Obese. LUNGS: Breath sounds diminished at both bases. HEART: S1 and S2, distant. No S3. No S4. ABDOMEN: Very obese, nontender. Bowel sounds are present. EXTREMITIES: No clubbing or cyanosis. There is 1 to 2+ peripheral edema. NEUROLOGIC: He is alert and oriented x4. There are no any motor deficits. He follows my commands. LABORATORY DATA: Showed glycemia ranging from 110 to 153. IMPRESSION: 1. End-stage renal disease, on dialysis. Nephrology is on the case. He continues his dialysis, and outpatient arrangements are being made for a center, where he can go and have dialysis done. Apparently, he was kicked out from the previous place he used to use because of his noncompliance and missing a lot of hemodialysis sessions. 2. Diabetes mellitus, well controlled, chronic. 3. Atrial fibrillation, rate controlled on anticoagulant. 4. Anticoagulation for chronic atrial fibrillation. 5. Morbid obesity. 6. Chronic constipation. The gabapentin was stopped, and MiraLAX was started. 7. Normocytic anemia related to his renal failure. PLAN: As mentioned above and finalize arrangement for his outpatient hemodialysis treatments and continue current regimen. Job ID: [id number]
--- NOTE | 2018-09-25 11:03 | PDOC.PN ---
- Subjective Encounter Start Date: 09/25/18 Encounter Start Time: 11:02 Subjective: no sob, etc - Objective Resuscitation Status - Order Detail: 09/19/18 16:40 Resuscitation Status Routine Resuscitation Status: FULL: Full Resuscitation MAR Reviewed: Yes Vital Signs & Weight: Vital Signs (12 hours) Temp Pulse Resp BP Pulse Ox 09/25/18 07:30 97.3 F L 77 20 127/87 99 09/25/18 04:25 97.1 F L 83 18 124/82 98 Weight Admit Weight 420 lb Weight 420 lb Result Diagrams: 09/20/18 03:57 09/23/18 04:24 Additional Labs: Accuchecks 09/25/18 09/24/18 09/24/18 04:29 19:53 16:40 POC Glucose 135 H 116 H 139 H 09/24/18 11:29 POC Glucose 132 H Phys Exam - Physical Examination Neck: no JVD Respiratory: clear to auscultation bilateral Cardiovascular: irregular Gastrointestinal: soft, positive bowel sounds Musculoskeletal: edema present Dx/Plan (1) Atrial fibrillation Code(s): I48.91 - UNSPECIFIED ATRIAL FIBRILLATION Status: Chronic (2) Anemia Code(s): D64.9 - ANEMIA, UNSPECIFIED Status: Acute Qualifiers: Anemia type: iron deficiency Comment: Likely iron Deficiency and from ESRD, will check iron levels and Stool occult. Will do PRBC at HD. (3) Volume overload Code(s): E87.70 - FLUID OVERLOAD, UNSPECIFIED Status: Acute Qualifiers: Hypervolemia type: other Qualified Code(s): E87.79 - Other fluid overload Comment: Improving with dialysis (4) Anemia of renal disease Code(s): D63.1 - ANEMIA IN CHRONIC KIDNEY DISEASE Status: Chronic Comment: stable (5) CAD (coronary artery disease) Code(s): I25.10 - ATHSCL HEART DISEASE OF [place] CORONARY ARTERY W/O ANG PCTRS Status: Chronic Qualifiers: Coronary Disease-Associated Artery/Lesion type: [place] artery [place] vs. transplanted heart: [place] heart Associated angina: without angina Qualified Code(s): I25.10 - Atherosclerotic heart disease of [place] coronary artery without angina pectoris Comment: stable (6) DM2 (diabetes mellitus, type 2) Status: Chronic Qualifiers: Diabetes mellitus skilled nursing insulin use: unspecified skilled nursing insulin use status Diabetes mellitus complication status: with kidney complications Diabetes mellitus complication detail: with chronic kidney disease Chronic kidney disease stage: on chronic dialysis Qualified Code(s): E11.22 - Type 2 diabetes mellitus with diabetic chronic kidney disease; N18.6 - End stage renal disease; Z99.2 - Dependence on renal dialysis Comment: controlled (7) ESRD (end stage renal disease) on dialysis Code(s): N18.6 - END STAGE RENAL DISEASE; Z99.2 - DEPENDENCE ON RENAL DIALYSIS Status: Chronic Comment: dialysis per nephrology service (8) Hypertension Code(s): I10 - ESSENTIAL (PRIMARY) HYPERTENSION Status: Chronic Qualifiers: Hypertension type: essential hypertension Qualified Code(s): I10 - Essential (primary) hypertension - Plan cont current meds -: cont HD -: outpt HD slot pending * .
--- NOTE | 2018-09-25 12:07 | PRG ---
DATE OF SERVICE: 09/25/2018 SUBJECTIVE: Patient was seen and examined at bedside and overnight events noted. Patient denies any shortness of breath or chest pain or palpitation. No history of nausea or vomiting or diarrhea or fever or chills or cramps. OBJECTIVE: GENERAL: This is a morbidly obese male, in no apparent distress. VITAL SIGNS: Temperature 97.3. Heart rate 74. Respiratory rate 20. Blood pressure 127/87. HEENT: Atraumatic, normocephalic. Oral mucosa is moist NECK: Supple. CARDIOVASCULAR: S1, S2 heard. Rate and rhythm regular. RESPIRATORY: Clear to auscultation. GASTROINTESTINAL: Abdomen is soft. MUSCULOSKELETAL: No tenderness. No edema. DERMATOLOGIC: No skin rash. NEUROLOGIC: Alert and awake and oriented X3. No focal neurologic deficits. Moving all the extremities. PSYCHIATRIC: Mood and affect normal. LABORATORY DATA: No labs done today. ASSESSMENT AND PLAN: 1. End-stage renal disease, we will continue on hemodialysis as tolerated on Tuesday, , and Tuesday. 2. Edema . 3. Anemia. 4. Hypertension. 5. Morbid obesity. 6. Follow with case management for outpatient placement. We will continue on dialysis as tolerated. Job ID: [id number]
[2018-09-25] MEDS: Lidocaine 5% Patch TD SCH (13:32)
[2018-09-25] MEDS: Atorvastatin Calcium 20 MG TAB PO SCH (20:56)
[2018-09-26] MEDS: Lidocaine Patch Removal 1 EACH TOP SCH (02:03)
[2018-09-26] MEDS: Levothyroxine Sodium 88 MCG TAB PO SCH (02:59)
[2018-09-26 06:49] LABS: Albumin 2.9 g/dL (3.5-5.0); Anion Gap 12 mmol/L (10-20); BUN (Urea Nitrogen) 49 mg/dL (8.4-25.7); BUN/Creatinine Ratio 8.66; Calc. Creatinine Clearance 37 mL/min (70-130); Calcium 8.8 mg/dL (7.8-10.44); Carbon Dioxide 29 mmol/L (22-29); Chloride 97 mmol/L (98-107); Estimated GFR-MDRD 10; Glucose 121 mg/dL (70-105); Phosphorus 4.8 mg/dL (2.3-4.7); Potassium 5.1 mmol/L (3.5-5.1); Sodium 133 mmol/L (136-145)
[2018-09-26] MEDS: Sevelamer Carbonate 800 MG TAB PO SCH ×3 (08:59→16:44)
--- NOTE | 2018-09-26 10:06 | PDOC.PN ---
- Subjective Encounter Start Date: 09/26/18 Encounter Start Time: 10:05 Subjective: no complaints - Objective Resuscitation Status - Order Detail: 09/19/18 16:40 Resuscitation Status Routine Resuscitation Status: FULL: Full Resuscitation MAR Reviewed: Yes Vital Signs & Weight: Vital Signs (12 hours) Temp Pulse Resp BP Pulse Ox 09/26/18 04:00 98.4 F 100 16 117/84 97 Weight Admit Weight 420 lb Weight 420 lb I&O: 09/25/18 09/26/18 09/27/18 06:59 06:59 06:59 Intake Total 720 Balance 720 Result Diagrams: 09/20/18 03:57 09/26/18 06:05 Additional Labs: Accuchecks 09/26/18 09/25/18 09/25/18 05:02 20:12 15:49 POC Glucose 128 H 132 H 115 H 09/25/18 11:06 POC Glucose 146 H Phys Exam - Physical Examination Neck: no JVD Respiratory: clear to auscultation bilateral Cardiovascular: RRR, no significant murmur Gastrointestinal: soft, positive bowel sounds Musculoskeletal: no edema Dx/Plan (1) Atrial fibrillation Code(s): I48.91 - UNSPECIFIED ATRIAL FIBRILLATION Status: Chronic (2) Anemia Code(s): D64.9 - ANEMIA, UNSPECIFIED Status: Acute Qualifiers: Anemia type: iron deficiency Comment: Likely iron Deficiency and from ESRD, will check iron levels and Stool occult. Will do PRBC at HD. (3) Volume overload Code(s): E87.70 - FLUID OVERLOAD, UNSPECIFIED Status: Acute Qualifiers: Hypervolemia type: other Qualified Code(s): E87.79 - Other fluid overload Comment: Improving with dialysis (4) Anemia of renal disease Code(s): D63.1 - ANEMIA IN CHRONIC KIDNEY DISEASE Status: Chronic Comment: stable (5) CAD (coronary artery disease) Code(s): I25.10 - ATHSCL HEART DISEASE OF [place] CORONARY ARTERY W/O ANG PCTRS Status: Chronic Qualifiers: Coronary Disease-Associated Artery/Lesion type: [place] artery [place] vs. transplanted heart: [place] heart Associated angina: without angina Qualified Code(s): I25.10 - Atherosclerotic heart disease of [place] coronary artery without angina pectoris Comment: stable (6) DM2 (diabetes mellitus, type 2) Status: Chronic Qualifiers: Diabetes mellitus custodial insulin use: unspecified intermediate accountant insulin use status Diabetes mellitus complication status: with kidney complications Diabetes mellitus complication detail: with chronic kidney disease Chronic kidney disease stage: on chronic dialysis Qualified Code(s): E11.22 - Type 2 diabetes mellitus with diabetic chronic kidney disease; N18.6 - End stage renal disease; Z99.2 - Dependence on renal dialysis Comment: controlled (7) ESRD (end stage renal disease) on dialysis Code(s): N18.6 - END STAGE RENAL DISEASE; Z99.2 - DEPENDENCE ON RENAL DIALYSIS Status: Chronic Comment: dialysis per nephrology service (8) Hypertension Code(s): I10 - ESSENTIAL (PRIMARY) HYPERTENSION Status: Chronic Qualifiers: Hypertension type: essential hypertension Qualified Code(s): I10 - Essential (primary) hypertension - Plan cont HD pending oupt slot -: cont current meds * .
[2018-09-26] MEDS: Docusate 100 MG CAP PO SCH (10:48)
[2018-09-26] MEDS: Apixaban 2.5 MG TAB PO SCH (10:48)
[2018-09-26] MEDS: Insulin Glargine 5 UNITS in Pre-Filled Syringe 1 EACH SC SCH (10:50)
[2018-09-26] MEDS: Polyethylene Glycol 3350 17 GM Packet PO SCH (10:51)
--- NOTE | 2018-09-26 13:23 | PRG ---
DATE OF SERVICE: 09/26/2018 SUBJECTIVE: The patient is a 58-year-old gentleman being seen for end-stage renal disease. The patient denies any nausea, vomiting, or chest pain . OBJECTIVE: VITAL SIGNS: Afebrile, pulse 75, breathing is 16, and blood pressure 117/84. See above. Awake, alert, in no acute distress. GENERAL APPEARANCE AND MENTAL STATUS: Fair. HEAD/NECK: Normocephalic. Atraumatic. EYES: EOMI. No deformity. EARS: Clear. No ulcers. NOSE: Intact. No lesions. MOUTH: Clear. No discharge. THROAT: Clear. No exudate. LUNGS: Clear. No crackles. CARDIAC: S1, S2. No rub. ABDOMEN: Benign. Bowel sounds positive. GENITALIA/RECTUM: [place] absent. BACK/EXTREMITIES: Edema 0+. NEUROLOGICAL: Alert and motor intact. LABORATORY DATA: Hemoglobin 8.7. ASSESSMENT AND PLAN: 1. . 2. Hypertension, stable. 3. Anemia, stable. 4. Medications based on glomerular filtration rate are appropriate. Job ID: [id number]
[2018-09-26] MEDS: Lidocaine 5% Patch TD SCH (13:45)
[2018-09-26] MEDS: Atorvastatin Calcium 20 MG TAB PO SCH (20:16)
[2018-09-26] MEDS: traMADol HCl 50 MG TAB PO PRN (20:18)
[2018-09-27] MEDS: Lidocaine Patch Removal 1 EACH TOP SCH (01:40)
[2018-09-27] MEDS: Levothyroxine Sodium 88 MCG TAB PO SCH (05:21)
[2018-09-27] MEDS: Apixaban 2.5 MG TAB PO SCH (08:36)
[2018-09-27] MEDS: Docusate 100 MG CAP PO SCH (08:36)
[2018-09-27] MEDS: Insulin Glargine 5 UNITS in Pre-Filled Syringe 1 EACH SC SCH (08:36)
[2018-09-27] MEDS: Sevelamer Carbonate 800 MG TAB PO SCH ×3 (08:36→16:35)
[2018-09-27] MEDS: Polyethylene Glycol 3350 17 GM Packet PO SCH (08:37)
--- NOTE | 2018-09-27 09:50 | PDOC.PN ---
- Subjective Encounter Start Date: 09/27/18 Encounter Start Time: 09:49 Subjective: no change - Objective Resuscitation Status - Order Detail: 09/19/18 16:40 Resuscitation Status Routine Resuscitation Status: FULL: Full Resuscitation MAR Reviewed: Yes Vital Signs & Weight: Vital Signs (12 hours) Temp Pulse Resp BP Pulse Ox 09/27/18 07:48 98.2 F 86 20 130/82 99 09/27/18 04:00 98.2 F 93 20 125/82 98 09/27/18 00:00 98.0 F 88 20 131/84 97 Weight Admit Weight 420 lb Weight 420 lb I&O: 09/26/18 09/27/18 09/28/18 06:59 06:59 06:59 Intake Total 720 950 Balance 720 950 Result Diagrams: 09/20/18 03:57 09/26/18 06:05 Additional Labs: Accuchecks 09/27/18 09/26/18 09/26/18 04:46 19:50 16:27 POC Glucose 109 171 H 139 H 09/26/18 10:49 POC Glucose 83 Phys Exam - Physical Examination Neck: no JVD Respiratory: clear to auscultation bilateral Cardiovascular: RRR Gastrointestinal: soft Musculoskeletal: edema present Dx/Plan (1) Atrial fibrillation Code(s): I48.91 - UNSPECIFIED ATRIAL FIBRILLATION Status: Chronic (2) Anemia Code(s): D64.9 - ANEMIA, UNSPECIFIED Status: Acute Qualifiers: Anemia type: iron deficiency Comment: Likely iron Deficiency and from ESRD, will check iron levels and Stool occult. Will do PRBC at HD. (3) Volume overload Code(s): E87.70 - FLUID OVERLOAD, UNSPECIFIED Status: Acute Qualifiers: Hypervolemia type: other Qualified Code(s): E87.79 - Other fluid overload Comment: Improving with dialysis (4) Anemia of renal disease Code(s): D63.1 - ANEMIA IN CHRONIC KIDNEY DISEASE Status: Chronic Comment: stable (5) CAD (coronary artery disease) Code(s): I25.10 - ATHSCL HEART DISEASE OF [place] CORONARY ARTERY W/O ANG PCTRS Status: Chronic Qualifiers: Coronary Disease-Associated Artery/Lesion type: [place] artery [place] vs. 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 Diabetes mellitus complication status: with kidney complications Diabetes mellitus complication detail: with chronic kidney disease Chronic kidney disease stage: on chronic dialysis Qualified Code(s): E11.22 - Type 2 diabetes mellitus with diabetic chronic kidney disease; N18.6 - End stage renal disease; Z99.2 - Dependence on renal dialysis Comment: controlled (7) ESRD (end stage renal disease) on dialysis Code(s): N18.6 - END STAGE RENAL DISEASE; Z99.2 - DEPENDENCE ON RENAL DIALYSIS Status: Chronic Comment: dialysis per nephrology service (8) Hypertension Code(s): I10 - ESSENTIAL (PRIMARY) HYPERTENSION Status: Chronic Qualifiers: Hypertension type: essential hypertension Qualified Code(s): I10 - Essential (primary) hypertension - Plan cont current plan of care awaiting outpt HD approval * .
[2018-09-27 11:37] LABS: Anion Gap 14 mmol/L (10-20); BUN (Urea Nitrogen) 37 mg/dL (8.4-25.7); Calc. Creatinine Clearance 45 mL/min (70-130); Calcium 8.4 mg/dL (7.8-10.44); Carbon Dioxide 22 mmol/L (22-29); Chloride 96 mmol/L (98-107); Estimated GFR-MDRD 13; Glucose 138 mg/dL (70-105); Potassium 4.7 mmol/L (3.5-5.1); Sodium 131 mmol/L (136-145)
--- NOTE | 2018-09-27 11:46 | PRG ---
DATE OF SERVICE: 09/27/2018 SUBJECTIVE: A 58-year-old gentleman, being seen for end-stage renal disease. The patient denies nausea, vomiting, or chest pain. OBJECTIVE: GENERAL: Awake, alert, in no acute distress. VITAL SIGNS: Afebrile, pulse 75, breathing 16, blood pressure 130/82. GENERAL APPEARANCE AND MENTAL STATUS: Fair. HEAD/NECK: Normocephalic. Atraumatic. EYES: EOMI. No deformity. EARS: Clear. No ulcers. NOSE: Intact. No lesions. MOUTH: Clear. No discharge. THROAT: Clear. No exudate. LUNGS: Clear. No crackles. CARDIAC: S1, S2. No rub. ABDOMEN: Benign. Bowel sounds positive. GENITALIA/RECTUM: [place] absent. BACK/EXTREMITIES: Edema 0+. NEUROLOGICAL: Alert and motor intact. LABORATORY DATA: Hemoglobin 8.7. ASSESSMENT AND PLAN: 1. chronic kidney disease, continue hemodialysis. 2. Hypertension, stable. 3. Anemia, stable. 4. Medications based on glomerular filtration rate are appropriate. Job ID: [id number]
[2018-09-27] MEDS: Lidocaine 5% Patch TD SCH (11:57)
[2018-09-27] MEDS: Ropinirole Hcl [Ropinirole Er] 4 MG PO SCH ×4 (12:08→12:14)
[2018-09-27] MEDS: traMADol HCl 50 MG TAB PO PRN ×2 (13:30→20:29)
[2018-09-27] MEDS: Epoetin (ESRD) 10,000 UNITS/ML VIAL SC SCH (13:32)
[2018-09-27] MEDS: Atorvastatin Calcium 20 MG TAB PO SCH (20:21)
[2018-09-27] MEDS: Acetaminophen 325 MG TAB PO PRN (20:30)
[2018-09-28] MEDS: Lidocaine Patch Removal 1 EACH TOP SCH (01:24)
[2018-09-28] MEDS: Levothyroxine Sodium 88 MCG TAB PO SCH (05:08)
[2018-09-28] MEDS: Insulin Glargine 5 UNITS in Pre-Filled Syringe 1 EACH SC SCH (08:08)
[2018-09-28] MEDS: Sevelamer Carbonate 800 MG TAB PO SCH ×3 (08:08→16:09)
[2018-09-28] MEDS: Apixaban 2.5 MG TAB PO SCH (08:12)
[2018-09-28] MEDS: Polyethylene Glycol 3350 17 GM Packet PO SCH (08:13)
[2018-09-28] MEDS: Docusate 100 MG CAP PO SCH (08:13)
[2018-09-28] MEDS: traMADol HCl 50 MG TAB PO PRN (08:20)
--- NOTE | 2018-09-28 08:29 | PDOC.PN ---
- Subjective Encounter Start Date: 09/28/18 Encounter Start Time: 08:27 Subjective: no sob, etc - Objective Resuscitation Status - Order Detail: 09/19/18 16:40 Resuscitation Status Routine Resuscitation Status: FULL: Full Resuscitation MAR Reviewed: Yes Vital Signs & Weight: Vital Signs (12 hours) Temp Pulse Resp BP Pulse Ox 09/28/18 08:17 97.9 F 76 20 105/70 97 09/28/18 00:47 98.2 F 77 16 119/85 95 Weight Admit Weight 420 lb Weight 420 lb I&O: 09/27/18 09/28/18 09/29/18 06:59 06:59 06:59 Intake Total 950 2600 Balance 950 2600 Result Diagrams: 09/27/18 11:00 09/27/18 10:34 Additional Labs: Accuchecks 09/28/18 09/27/18 09/27/18 05:06 20:53 16:08 POC Glucose 105 112 H 118 H 09/27/18 11:19 POC Glucose 141 H Phys Exam - Physical Examination Neck: no JVD Respiratory: clear to auscultation bilateral Cardiovascular: RRR Gastrointestinal: soft, positive bowel sounds Musculoskeletal: no edema Dx/Plan (1) Atrial fibrillation Code(s): I48.91 - UNSPECIFIED ATRIAL FIBRILLATION Status: Chronic (2) Anemia Code(s): D64.9 - ANEMIA, UNSPECIFIED Status: Acute Qualifiers: Anemia type: iron deficiency Comment: Likely iron Deficiency and from ESRD, will check iron levels and Stool occult. Will do PRBC at HD. (3) Volume overload Code(s): E87.70 - FLUID OVERLOAD, UNSPECIFIED Status: Acute Qualifiers: Hypervolemia type: other Qualified Code(s): E87.79 - Other fluid overload Comment: Improving with dialysis (4) Anemia of renal disease Code(s): D63.1 - ANEMIA IN CHRONIC KIDNEY DISEASE Status: Chronic Comment: stable (5) CAD (coronary artery disease) Code(s): I25.10 - ATHSCL HEART DISEASE OF [place] CORONARY ARTERY W/O ANG PCTRS Status: Chronic Qualifiers: Coronary Disease-Associated Artery/Lesion type: [place] artery [place] vs. 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: unspecified mcc insulin use status Diabetes mellitus complication status: with kidney complications Diabetes mellitus complication detail: with chronic kidney disease Chronic kidney disease stage: on chronic dialysis Qualified Code(s): E11.22 - Type 2 diabetes mellitus with diabetic chronic kidney disease; N18.6 - End stage renal disease; Z99.2 - Dependence on renal dialysis Comment: controlled (7) ESRD (end stage renal disease) on dialysis Code(s): N18.6 - END STAGE RENAL DISEASE; Z99.2 - DEPENDENCE ON RENAL DIALYSIS Status: Chronic Comment: dialysis per nephrology service (8) Hypertension Code(s): I10 - ESSENTIAL (PRIMARY) HYPERTENSION Status: Chronic Qualifiers: Hypertension type: essential hypertension Qualified Code(s): I10 - Essential (primary) hypertension - Plan cont HD, meds pending outpt HD * .
--- NOTE | 2018-09-28 12:28 | PRG ---
DATE OF SERVICE: 09/28/2018 SUBJECTIVE: A 58-year-old gentleman, being seen for end-stage renal disease. The patient denies nausea, vomiting, or chest pain. OBJECTIVE: GENERAL: Awake, alert. VITAL SIGNS: Afebrile, pulse 76, breathing 16, and blood pressure 105/70. GENERAL APPEARANCE AND MENTAL STATUS: Fair. HEAD/NECK: Normocephalic. Atraumatic. EYES: EOMI. No deformity. EARS: Clear. No ulcers. NOSE: Intact. No lesions. MOUTH: Clear. No discharge. THROAT: Clear. No exudate. LUNGS: Clear. No crackles. CARDIAC: S1, S2. No rub. ABDOMEN: Benign. Bowel sounds positive. GENITALIA/RECTUM: [place] absent. BACK/EXTREMITIES: Edema 0+. NEUROLOGICAL: Alert and motor intact. LABORATORY DATA: Reviewed. ASSESSMENT AND PLAN: 1. Chronic kidney disease, continue hemodialysis. 2. Hypertension, stable. 3. Anemia, stable. Medications based on glomerular filtration rate are appropriate. Job ID: [id number]
[2018-09-28] MEDS: Lidocaine 5% Patch TD SCH (16:09)
[2018-09-28] MEDS: Acetaminophen 325 MG TAB PO PRN (17:12)
[2018-09-28] MEDS: Ondansetron ODT 4 MG TAB PO PRN (18:32)
[2018-09-28] MEDS: Atorvastatin Calcium 20 MG TAB PO SCH (20:01)
[2018-09-29] MEDS: Lidocaine Patch Removal 1 EACH TOP SCH (04:26)
[2018-09-29] MEDS: Levothyroxine Sodium 88 MCG TAB PO SCH (05:47)
[2018-09-29] MEDS: Sevelamer Carbonate 800 MG TAB PO SCH ×3 (08:30→17:20)
[2018-09-29] MEDS: Docusate 100 MG CAP PO SCH (08:31)
[2018-09-29] MEDS: Apixaban 2.5 MG TAB PO SCH (08:31)
[2018-09-29] MEDS: Polyethylene Glycol 3350 17 GM Packet PO SCH (08:35)
[2018-09-29] MEDS: Insulin Glargine 5 UNITS in Pre-Filled Syringe 1 EACH SC SCH (08:40)
--- NOTE | 2018-09-29 08:41 | RAD ---
UPRIGHT PORTABLE CHEST 1 VIEW: HISTORY: A 58-year-old male with shortness of breath. COMPARISON: 09/19/2018. FINDINGS: There is moderate rotation to the left. Minimal cardiomegaly. Bilateral vascular congestion with so me increased linear and interstitial markings, particularly in the mid lung zones and lower lung zone s showing little change from 09/19/2018, but some worsening when compared to 09/14/2018 study. No ne w confluent process. IMPRESSION: Cardiomegaly with bilateral vascular congestion and some new or slightly worsening linear and interst itial parenchymal changes bilaterally probably related to worsening congestion and very mild intersti tial edema showing worsening from 09/14/2018 with little change from 09/19/2018. No new confluent pn e[place]. POS: LIZAH
[2018-09-29] MEDS: traMADol HCl 50 MG TAB PO PRN (10:14)
--- NOTE | 2018-09-29 11:15 | PDOC.PN ---
- Subjective Encounter Start Date: 09/29/18 Encounter Start Time: 10:00 Doing ok overall. Reported to nurse that he needed meds for RLS. He reported to me that he is having a productive cough. Eager to go home. - Objective Resuscitation Status - Order Detail: 09/19/18 16:40 Resuscitation Status Routine Resuscitation Status: FULL: Full Resuscitation MAR Reviewed: Yes Vital Signs & Weight: Vital Signs (12 hours) Temp Pulse Resp BP Pulse Ox 09/29/18 08:00 98.5 F 88 20 129/71 100 09/29/18 04:37 97.9 F 89 18 125/83 100 09/29/18 01:18 98.2 F 95 18 125/83 93 L Weight Admit Weight 420 lb Weight 420 lb I&O: 09/28/18 09/29/18 09/30/18 06:59 06:59 06:59 Intake Total 2600 1800 360 Output Total 4000 Balance 2600 -2200 360 Result Diagrams: 09/27/18 11:00 09/27/18 10:34 Additional Labs: Accuchecks 09/29/18 09/28/18 09/28/18 04:43 20:48 16:19 POC Glucose 88 113 H 102 Phys Exam - Physical Examination Constitutional: NAD Morbidly obese. Respiratory: no wheezing, no rales, no rhonchi Compromised exam due to obesity. Cardiovascular: RRR, no significant murmur, no rub Gastrointestinal: soft, non-tender, no distention, positive bowel sounds 2+ BLE edema with chronic stasis dermatitis. 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 insulin use status Diabetes mellitus complication status: with kidney complications Diabetes mellitus complication detail: with chronic kidney disease Chronic kidney disease stage: on chronic dialysis Qualified Code(s): E11.22 - Type 2 diabetes mellitus with diabetic chronic kidney disease; N18.6 - End stage renal disease; Z99.2 - Dependence on renal dialysis Comment: controlled (4) ESRD (end stage renal disease) on dialysis Code(s): N18.6 - END STAGE RENAL DISEASE; Z99.2 - DEPENDENCE ON RENAL DIALYSIS Status: Chronic Comment: dialysis per nephrology service (5) Hypertension Code(s): I10 - ESSENTIAL (PRIMARY) HYPERTENSION Status: Chronic Qualifiers: Hypertension type: essential hypertension Qualified Code(s): I10 - Essential (primary) hypertension (6) Morbid obesity due to excess calories Code(s): E66.01 - MORBID (SEVERE) OBESITY DUE TO EXCESS CALORIES Status: Chronic (7) chronic venous stasis Status: Chronic Comment: with dependent edema (8) Atrial fibrillation Code(s): I48.91 - UNSPECIFIED ATRIAL FIBRILLATION Status: Chronic (9) Anemia Code(s): D64.9 - ANEMIA, UNSPECIFIED Status: Acute Qualifiers: Anemia type: iron deficiency Comment: Likely iron Deficiency and from ESRD, will check iron levels and Stool occult. Will do PRBC at HD. - Plan * Awaiting chair placement that will accommodate his transportation issues. Has apparently already created some ill will among the HD centers. * CXR only shows some edema. Has been getting HD and my need more volume removed. * No evidence of pneumonia. Suspect the productive cough is more likely related to the edema not infection.
[2018-09-29 11:16] LABS: Hemoglobin 8.1 g/dL (14.0-18.0)
--- NOTE | 2018-09-29 12:15 | PRG ---
DATE OF SERVICE: 09/29/2018 SUBJECTIVE: A 58-year-old male, being seen for end-stage renal disease. The patient denies any nausea, vomiting, or chest pain. OBJECTIVE: GENERAL: The patient is awake and alert. VITAL SIGNS: Afebrile, pulse 88, breathing 16, and blood pressure 125/83. GENERAL APPEARANCE AND MENTAL STATUS: Fair. HEAD/NECK: Normocephalic. Atraumatic. EYES: EOMI. No deformity. EARS: Clear. No ulcers. NOSE: Intact. No lesions. MOUTH: Clear. No discharge. THROAT: Clear. No exudate. LUNGS: Clear. No crackles. CARDIAC: S1, S2. No rub. ABDOMEN: Benign. Bowel sounds positive. GENITALIA/RECTUM: [place] absent. BACK/EXTREMITIES: Edema 0+. NEUROLOGICAL: Alert and motor intact. LABORATORY DATA: Hemoglobin 8. ASSESSMENT AND PLAN: 1. Stage 6 chronic kidney disease, continue hemodialysis today for pulmonary edema. 2. Hypertension, stable. 3. Anemia. Continue Epogen. 4. Medications based on glomerular filtration rate are appropriate. Job ID: [id number] [facility]
[2018-09-29] MEDS: Lidocaine 5% Patch TD SCH (16:54)
[2018-09-29 17:41] LABS: #Eosinphils 0.1 thou/uL (0.0-0.7); #Lymphocytes 0.8 thou/uL (1.20-3.40); #Monocytes 0.3 thou/uL (0.11-0.59); #Neutrophils 2.3 thou/uL (1.40-6.50); %Basophils 0.5 % (0.0-1.0); %Eosinophils 4.1 % (0.0-10.0); %Lymphocytes 23.5 % (21.0-51.0); %Monocytes 8.9 % (0.0-10.0); Hemoglobin 8.5 g/dL (14.0-18.0); Mean Corpuscular HGB CONC 32.7 g/dL (32.0-36.0); Mean Corpuscular Hemoglobin 29.8 pg (27.0-31.0); Mean Corpuscular Volume 91.2 fL (78.0-98.0); Mean Platelet Volume 8.6 fL (7.4-10.4); Platelet Count 136 thou/uL (130-400); RBC Distribution Width 14.6 % (11.5-14.5); Red Blood Cell (RBC) Count 2.85 mill/uL (4.70-6.10); White Blood Cell (WBC) Count 3.6 thou/uL (4.8-10.8)
[2018-09-29 18:02] LABS: ALT (SGPT) Less than 7 U/L (8-55); AST (SGOT) 10 U/L (5-34); Albumin 2.9 g/dL (3.5-5.0); Alkaline Phosphatase 106 U/L (40-150); Anion Gap 12 mmol/L (10-20); BUN (Urea Nitrogen) 35 mg/dL (8.4-25.7); Bilirubin, Total 0.5 mg/dL (0.2-1.2); Calc. Creatinine Clearance 49 mL/min (70-130); Calcium 8.2 mg/dL (7.8-10.44); Carbon Dioxide 29 mmol/L (22-29); Chloride 96 mmol/L (98-107); Estimated GFR-MDRD 14; Globulin 3.3 g/dL (2.4-3.5); Glucose 126 mg/dL (70-105); Potassium 4.6 mmol/L (3.5-5.1); Protein, Total 6.2 g/dL (6.0-8.3); Sodium 132 mmol/L (136-145)
[2018-09-29] MEDS: Atorvastatin Calcium 20 MG TAB PO SCH (21:34)
[2018-09-30] MEDS: Lidocaine Patch Removal 1 EACH TOP SCH (05:12)
[2018-09-30] MEDS: Levothyroxine Sodium 88 MCG TAB PO SCH (05:12)
[2018-09-30] MEDS: Docusate 100 MG CAP PO SCH ×2 (08:00→13:44)
[2018-09-30] MEDS: Sevelamer Carbonate 800 MG TAB PO SCH ×3 (08:01→17:05)
[2018-09-30] MEDS: Insulin Glargine 5 UNITS in Pre-Filled Syringe 1 EACH SC SCH (10:08)
--- NOTE | 2018-09-30 11:26 | PRG ---
DATE OF SERVICE: 09/30/2018 SUBJECTIVE: This is a 58-year-old gentleman, being seen for end-stage renal disease. The patient denies any nausea, vomiting, or chest pain. OBJECTIVE: GENERAL: The patient is awake and alert. VITAL SIGNS: Afebrile, pulse 65, breathing 16, and blood pressure 97/70. GENERAL APPEARANCE AND MENTAL STATUS: Fair. HEAD/NECK: Normocephalic. Atraumatic. EYES: EOMI. No deformity. EARS: Clear. No ulcers. NOSE: Intact. No lesions. MOUTH: Clear. No discharge. THROAT: Clear. No exudate. LUNGS: Clear. No crackles. CARDIAC: S1, S2. No rub. ABDOMEN: Benign. Bowel sounds positive. GENITALIA/RECTUM: [place] absent. BACK/EXTREMITIES: Edema 0+. NEUROLOGICAL: Alert and motor intact. ASSESSMENT AND PLAN: 1. Stage 6 chronic kidney disease, continue hemodialysis. 2. Hypertension, stable. 3. Anemia, stable. Job ID: [id number]
[2018-09-30] MEDS: traMADol HCl 50 MG TAB PO PRN ×2 (11:35→17:07)
[2018-09-30] MEDS: Acetaminophen 325 MG TAB PO PRN (13:35)
[2018-09-30] MEDS: Apixaban 2.5 MG TAB PO SCH (13:43)
[2018-09-30] MEDS: Polyethylene Glycol 3350 17 GM Packet PO SCH (13:44)
[2018-09-30] MEDS: Lidocaine 5% Patch TD SCH (15:55)
[2018-09-30] MEDS: AMOXicillin 250 MG CAP PO SCH (20:39)
[2018-09-30] MEDS: Ondansetron ODT 4 MG TAB PO PRN (20:40)
[2018-09-30] MEDS: Atorvastatin Calcium 20 MG TAB PO SCH (20:40)
[2018-09-30] MEDS: Gabapentin 100 MG CAP PO SCH (20:40)
--- NOTE | 2018-09-30 22:12 | PDOC.PN ---
- Subjective Encounter Start Date: 09/30/18 Encounter Start Time: 16:00 Still having some cough. Getting better. Still has some fullness in the left pannus. - Objective Resuscitation Status - Order Detail: 09/19/18 16:40 Resuscitation Status Routine Resuscitation Status: FULL: Full Resuscitation Vital Signs & Weight: Vital Signs (12 hours) Temp Pulse Resp BP BP Pulse Ox 09/30/18 20:05 98.8 F 88 12 116/77 99 09/30/18 20:00 99 09/30/18 17:10 98.4 F 92 14 110/71 97 09/30/18 17:00 98.4 F 09/30/18 13:35 97.8 F 85 18 100/44 L 99 Weight Admit Weight 420 lb Weight 420 lb I&O: 09/29/18 09/30/18 10/01/18 06:59 06:59 06:59 Intake Total 1800 1220 600 Output Total 4000 4400 Balance -2200 1220 -3800 Result Diagrams: 09/29/18 17:35 09/29/18 17:35 Additional Labs: Accuchecks 09/30/18 09/30/18 09/30/18 21:18 16:37 05:15 POC Glucose 128 H 119 H 100 09/29/18 21:10 POC Glucose 109 Phys Exam - Physical Examination Respiratory: no wheezing, no rales, no rhonchi, clear to auscultation bilateral Cardiovascular: RRR, no significant murmur, irregular Gastrointestinal: soft Morbidly obese. Indurated pannus left abdomen 1+ pitting LE edema. Psychiatric: normal affect, A&O x 3 Dx/Plan (1) Volume overload Code(s): E87.70 - FLUID OVERLOAD, UNSPECIFIED Status: Acute Qualifiers: Hypervolemia type: other Qualified Code(s): E87.79 - Other fluid overload Comment: Improving with dialysis. Had HD again today. Still has fluid to be removed over time. (2) Chronic respiratory failure Code(s): J96.10 - CHRONIC RESPIRATORY FAILURE, UNSP W HYPOXIA OR HYPERCAPNIA Status: Chronic Comment: Multifactorial. Obesity and volume. 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: unspecified prison insulin use status Diabetes mellitus complication status: with kidney complications Diabetes mellitus complication detail: with chronic kidney disease Chronic kidney disease stage: on chronic dialysis Qualified Code(s): E11.22 - Type 2 diabetes mellitus with diabetic chronic kidney disease; N18.6 - End stage renal disease; Z99.2 - Dependence on renal dialysis Comment: controlled (4) ESRD (end stage renal disease) on dialysis Code(s): N18.6 - END STAGE RENAL DISEASE; Z99.2 - DEPENDENCE ON RENAL DIALYSIS Status: Chronic Comment: dialysis per nephrology service (5) Hypertension Code(s): I10 - ESSENTIAL (PRIMARY) HYPERTENSION Status: Chronic Qualifiers: Hypertension type: essential hypertension Qualified Code(s): I10 - Essential (primary) hypertension (6) Morbid obesity due to excess calories Code(s): E66.01 - MORBID (SEVERE) OBESITY DUE TO EXCESS CALORIES Status: Chronic (7) chronic venous stasis Status: Chronic Comment: with dependent edema (8) Atrial fibrillation Code(s): I48.91 - UNSPECIFIED ATRIAL FIBRILLATION Status: Chronic (9) Anemia Code(s): D64.9 - ANEMIA, UNSPECIFIED Status: Acute Qualifiers: Anemia type: iron deficiency Comment: Likely iron Deficiency and from ESRD, will check iron levels and Stool occult. Will do PRBC at HD. (10) Bronchitis Code(s): J40 - BRONCHITIS, NOT SPECIFIED ACUTE OR CHRONIC Status: Acute Comment: May be just some residual pulmonary edema. Start amoxil. - Plan * .
[2018-10-01] MEDS: Levothyroxine Sodium 88 MCG TAB PO SCH (05:20)
[2018-10-01] MEDS: Lidocaine Patch Removal 1 EACH TOP SCH (05:21)
[2018-10-01] MEDS: Insulin Glargine 5 UNITS in Pre-Filled Syringe 1 EACH SC SCH (08:52)
[2018-10-01] MEDS: AMOXicillin 250 MG CAP PO SCH (08:53)
[2018-10-01] MEDS: Apixaban 2.5 MG TAB PO SCH (08:53)
[2018-10-01] MEDS: Polyethylene Glycol 3350 17 GM Packet PO SCH (08:54)
[2018-10-01] MEDS: Gabapentin 100 MG CAP PO SCH (08:54)
[2018-10-01] MEDS: Sevelamer Carbonate 800 MG TAB PO SCH ×2 (08:54→12:03)
[2018-10-01] MEDS: Docusate 100 MG CAP PO SCH (08:57)
[2018-10-01 12:03] VITALS: BP 99/55; TEMP 98.2
[2018-10-01] MEDS: Lidocaine 5% Patch TD SCH (12:06)
--- NOTE | 2018-10-01 12:32 | PRG ---
DATE OF SERVICE: 10/01/2018 SUBJECTIVE: A 58-year-old gentleman, being seen for end-stage renal disease. The patient denies any nausea, vomiting, or chest pain. OBJECTIVE: GENERAL: The patient is awake, alert. VITAL SIGNS: Afebrile, pulse 98, breathing 16, and blood pressure 107/69. GENERAL APPEARANCE AND MENTAL STATUS: Fair. HEAD/NECK: Normocephalic. Atraumatic. EYES: EOMI. No deformity. EARS: Clear. No ulcers. NOSE: Intact. No lesions. MOUTH: Clear. No discharge. THROAT: Clear. No exudate. LUNGS: Clear. No crackles. CARDIAC: S1, S2. No rub. ABDOMEN: Benign. Bowel sounds positive. GENITALIA/RECTUM: [place] absent. BACK/EXTREMITIES: Edema 0+. NEUROLOGICAL: Alert and motor intact. LABS: None. ASSESSMENT AND PLAN: 1. Stage 6 chronic kidney disease. Continue hemodialysis. 2. Hypertension, stable. 3. Anemia, stable. 4. Medications based on GFR as appropriate. Job ID: [id number]
--- NOTE | 2018-10-01 12:38 | PRG ---
DATE OF SERVICE: 10/01/2018 SUBJECTIVE: A 58-year-old gentleman, being seen for end-stage renal disease. The patient denies any nausea, vomiting, or chest pain. OBJECTIVE: GENERAL: The patient is awake and alert. VITAL SIGNS: Afebrile, pulse 98, breathing 16, and blood pressure 107/69. GENERAL APPEARANCE AND MENTAL STATUS: Fair. HEAD/NECK: Normocephalic. Atraumatic. EYES: EOMI. No deformity. EARS: Clear. No ulcers. NOSE: Intact. No lesions. MOUTH: Clear. No discharge. THROAT: Clear. No exudate. LUNGS: Clear. No crackles. CARDIAC: S1, S2. No rub. ABDOMEN: Benign. Bowel sounds positive. GENITALIA/RECTUM: [place] absent. BACK/EXTREMITIES: Edema 0+. NEUROLOGICAL: Alert and motor intact. SKIN: LYMPHATICS: LABORATORY DATA: None. ASSESSMENT AND PLAN: 1. Stage chronic kidney disease, continue hemodialysis. 2. Hypertension, stable. 3. Anemia, stable. 4. Medications based on glomerular filtration rate are appropriate. Job ID: [id number]
--- NOTE | 2018-10-03 08:35 | DIS ---
DATE OF ADMISSION: 09/19/2018 DATE OF DISCHARGE: 10/01/2018 DISCHARGE DIAGNOSES: 1. Volume overload. 2. End-stage renal disease, on dialysis. 3. Chronic respiratory failure. 4. Diabetes mellitus. 5. Hypertension. 6. Morbid obesity. 7. Chronic venous stasis dermatitis. 8. Atrial fibrillation. 9. Anemia. 10. Bronchitis. HISTORY OF PRESENT ILLNESS: This patient is a 58-year-old male, who is morbidly obese and end-stage renal disease requiring dialysis. The patient has had some struggles maintaining good relationship with some of the dialysis centers. He is also having some difficulty with transportation getting to and from his dialysis treatments. He missed some dialysis treatments and ultimately became volume overloaded and short of breath and had a substantial amount of peripheral edema. The patient was subsequently admitted through the emergency department. He was started on his regular dialysis routine. After several days, the patient continued to have evidence of volume overload with edema and induration even in the pannus area of his morbidly obese abdomen as well as his lower extremities. The patient also developed some cough, which was slightly productive. Chest x-ray revealed no evidence of pneumonia and he was afebrile. He did appear to continue to have some volume overload and thought he may have some bronchitis as well. He was started on some amoxicillin and given [id number] days of hemodialysis. The patient was struggling with his obesity and the volume overload to function well at home. In talking to him, he was amenable to considering a short-term option for placement. Case Management was consulted and the patient was ultimately accepted into [facility] for a brief stay while he continues to get his dialysis. He was also set up in a new dialysis center, where transportation will be more accommodating for his location and schedule. DISPOSITION: The patient is discharged to [facility]. ACTIVITY: His activity is as tolerated. DIET: He will be on a renal diet. He will receive OT and PT. PHYSICAL EXAMINATION: VITAL SIGNS: On the day of discharge, his temperature is 98.2, pulse 76, respirations 16, O2 saturation 99% on 2 L, and blood pressure was 99/55. GENERAL: He is morbidly obese, awake, alert, pleasant, and cooperative. HEART: Regular without murmurs, gallops, or rubs. LUNGS: Clear to auscultation bilaterally. ABDOMEN: Morbidly obese, pendulous, soft, nondistended. There is some pitting edema in the lower pannus laterally, especially on the left. EXTREMITIES: Have trace pitting edema as well. DISCHARGE MEDICATIONS: 1. Amoxicillin 500 mg b.i.d. 2. Ropinirole 4 mg at bedtime. 3. Atorvastatin 20 mg at bedtime. 4. Gabapentin 100 mg t.i.d. 5. Sevelamer carbonate p.o. t.i.d. with meals. 6. Lantus 5 units subcu q.a.m. 7. Polyethylene glycol 17 g daily p.r.n. 8. Pantoprazole 40 mg p.o. daily. 9. Lidoderm patch daily. 10. Colace 100 mg daily. 11. Tylenol p.r.n. 12. Tramadol 50 mg q.6 p.r.n. 13. Levothyroxine 88 mcg daily. 14. Zoloft 25 mg daily. 15. NovoLog sliding scale. 16. Eliquis 2.5 p.o. daily. 17. Metoprolol 12.5 mg one-half tablet daily. 18. Lorazepam 0.5 mg b.i.d. 19. Procrit p.r.n. 20. Nystatin powder. FOLLOWUP: The patient is to follow up with Nephrology with Dr. Julio Cesar Fonseca. He will also follow up with Dr. Raoul Watts in Home Health at [facility] once he is discharged from [facility]. The patient can return to the hospital should he have any problems prior to his followup. Job ID: [id number] [facility]
== END 2018-10-01 14:04 ==
LOC: ERS 09:47 → T4-B 17:35
PROVIDERS: ADMIT Internal Medicine; ATTEND Internal Medicine
DX: E87.70 Fluid overload, unspecified (principal); I13.2 Hypertensive heart and chronic kidney disease with heart failure and with stage 5 chronic kidney disease, or end stage renal disease; E11.22 Type 2 diabetes mellitus with diabetic chronic kidney disease; N18.6 End stage renal disease; I50.22 Chronic systolic (congestive) heart failure; Z99.2 Dependence on renal dialysis; I25.10 Atherosclerotic heart disease of native coronary artery without angina pectoris; I48.2 Chronic atrial fibrillation; E03.9 Hypothyroidism, unspecified; M19.90 Unspecified osteoarthritis, unspecified site; E87.5 Hyperkalemia; K59.09 Other constipation; D63.1 Anemia in chronic kidney disease; E66.01 Morbid (severe) obesity due to excess calories; Z68.44 Body mass index [BMI] 60.0-69.9, adult; Z90.49 Acquired absence of other specified parts of digestive tract; Z90.89 Acquired absence of other organs; Z88.8 Allergy status to other drugs, medicaments and biological substances; Z79.2 Long term (current) use of antibiotics; Z79.4 Long term (current) use of insulin; Z79.01 Long term (current) use of anticoagulants; Z79.899 Other long term (current) drug therapy; Z98.890 Other specified postprocedural states
CPT/HCPCS: 71045 ×2; 80048 ×3; 80053 ×2; 80069; 82553; 82962 ×13; 84484; 85014 ×2; 85018 ×2; 85025 ×3; 87340; 93005; 97110 ×6; 97139 ×18; 97530 ×7; 99285; G0378 ×3; G8978 ×2; G8979 ×2; G8987; G8988; Q4081; 36415; 36416; 90935; G0257; Q0162

== ENCOUNTER 2018-10-18 18:11 | Inpatient (IN) | payer MEDICARE, MEDICAID ==
[2018-10-18 19:18] LABS: #Eosinphils 0.3 thou/uL (0.0-0.7); #Lymphocytes 1.1 thou/uL (1.20-3.40); #Monocytes 0.4 thou/uL (0.11-0.59); #Neutrophils 4.2 thou/uL (1.40-6.50); %Basophils 0.7 % (0.0-1.0); %Eosinophils 5.1 % (0.0-10.0); %Lymphocytes 18.1 % (21.0-51.0); %Monocytes 7.1 % (0.0-10.0); Hemoglobin 8.5 g/dL (14.0-18.0); Mean Corpuscular HGB CONC 32.3 g/dL (32.0-36.0); Mean Platelet Volume 8.8 fL (7.4-10.4); Platelet Count 164 thou/uL (130-400); RBC Distribution Width 14.5 % (11.5-14.5); Red Blood Cell (RBC) Count 2.82 mill/uL (4.70-6.10)
[2018-10-18 19:37] LABS: ALT (SGPT) 7 U/L (8-55); AST (SGOT) 9 U/L (5-34); Albumin 3.1 g/dL (3.5-5.0); Alkaline Phosphatase 108 U/L (40-150); Anion Gap 15 mmol/L (10-20); BUN (Urea Nitrogen) 30 mg/dL (8.4-25.7); Bilirubin, Total 0.5 mg/dL (0.2-1.2); Calc. Creatinine Clearance 0 mL/min (70-130); Calcium 9.2 mg/dL (7.8-10.44); Carbon Dioxide 32 mmol/L (22-29); Chloride 96 mmol/L (98-107); Estimated GFR-MDRD 20; Globulin 3.8 g/dL (2.4-3.5); Glucose 175 mg/dL (70-105); Potassium 3.3 mmol/L (3.5-5.1); Protein, Total 6.9 g/dL (6.0-8.3); Sodium 140 mmol/L (136-145)
--- NOTE | 2018-10-18 19:58 | RAD ---
SINGLE VIEW OF THE CHEST: 10/18/18 COMPARISON: 09/29/18 HISTORY: Chest pain. Dialysis patient. FINDINGS: Single view of the chest shows an enlarged but stable cardiomediastinal silhouette. Bilateral perihil ar fullness may represent pulmonary vascular enlargement. A small left pleural effusion may be presen t. IMPRESSION: 1. Cardiomegaly with pulmonary vascular congestion. 2. Possible small left pleural effusion. POS: H
[2018-10-18 19:59] LABS: CKMB 1.5 ng/mL (0-6.6)
[2018-10-18 23:25] LABS: Troponin I 0.032 ng/mL (< 0.028)
[2018-10-18] MEDS ORDERED: Ondansetron ODT 4 MG TAB SL PRN (23:26)
[2018-10-18] MEDS ORDERED: Ondansetron PF 4 MG/2 ML Vial IVP PRN (23:26)
[2018-10-18] MEDS ORDERED: Acetaminophen 325 MG TAB PO PRN (23:26)
[2018-10-18 23:48] VITALS: BMI 56.5
[2018-10-19 01:39] LABS: Troponin I 0.022 ng/mL (< 0.028)
--- NOTE | 2018-10-19 03:52 | HP ---
PRIMARY CARE PHYSICIAN: Raoul Watts MD CHIEF COMPLAINT: Chest pain. HISTORY OF PRESENT ILLNESS: Mr. Lyons is a pleasant 58-year-old male with a past medical history of CAD, congestive heart failure, myocardial infarction, atrial fibrillation, diabetes mellitus, hypothyroidism, hypertension, and end-stage renal disease on hemodialysis, who had presented to [facility] after he had an episode of chest pain during dialysis earlier on today. He states chest pain came on suddenly while he was eating a sandwich during dialysis. He stated that he has a history of hiatal hernia and a history of gastroesophageal reflux disease. He states the chest pain was similar to his reflux that he has usually after meals. He states the pain came on suddenly and only lasted for a few moments. He was given nitroglycerin and his pain eventually went away. Upon arrival to the ER, his initial lab work showed a creatinine of 3.17, troponin of 0.033 and a BNP of 1162.5. He had denied any further chest pain, shortness of breath, or abdominal pain. He denies any fever, chills, headache or blurred vision. He denies any numbness or weakness. His primary mine laborer is Dr. Fonseca, who was consulted, there was no indication for further dialysis today and Dr. Fonseca may come by and see the patient tomorrow morning. He underwent a chest x-ray in the ER, which revealed cardiomegaly with pulmonary vascular congestion with possible small left pleural effusion. The patient was transferred up to telemetry for observation. REVIEW OF SYSTEMS: All review of systems were reviewed and negative except for the ones mentioned above in HPI. PAST MEDICAL HISTORY: Significant for, 1. Coronary artery disease. 2. Chronic systolic heart failure with ejection fraction of 45%. 3. Atrial fibrillation. 4. Diabetes mellitus. 5. Hypothyroidism. 6. Hypertension. 7. Osteoarthritis. 8. End-stage renal disease, on hemodialysis. PAST SURGICAL HISTORY: 1. Appendectomy. 2. Tonsillectomy. 3. Left leg surgery. 4. Right AV shunt. FAMILY HISTORY: Significant for diabetes mellitus. ALLERGIES: POSITIVE FOR QUINAPRIL AND ACCUPRIL. SOCIAL HISTORY: He denies tobacco use or alcohol use and denies any illicit drug use. CURRENT HOME MEDICATIONS: 1. Atorvastatin 20 mg p.o. at bedtime. 2. Gabapentin 100 mg p.o. t.i.d. 3. Sevelamer 2 tabs p.o. t.i.d. with meals 800 mg. 4. Insulin glargine 5 units subcu q.a.m. 5. Ropinirole 4 mg p.o. at bedtime. 6. MiraLAX 17 g p.o. daily p.r.n. constipation. 7. Protonix 40 mg p.o. daily. 8. Lidocaine 5% patch one patch topical daily. 9. Colace 100 mg p.o. daily. 10. Acetaminophen 325 mg 1 to 2 tabs p.o. every 6 hours as needed for pain or fever. 11. Tramadol 50 mg p.o. every 6 hours p.r.n. pain. 12. Levothyroxine 88 mcg p.o. daily. 13. Sertraline 25 mg p.o. daily. 14. Insulin aspart subcu as needed for elevated blood sugars. 15. Apixaban 2.5 mg p.o. daily. 16. Metoprolol 12.5 mg p.o. daily. 17. Lorazepam 0.5 mg p.o. b.i.d. p.r.n. anxiety. 18. Epoetin 10,000 units subcu every 7 days. 19. Nystatin 15 g topical b.i.d. p.r.n. PHYSICAL EXAMINATION: VITAL SIGNS: Blood pressure 131/52, pulse 80, respirations 20, temperature 97.7 degrees Fahrenheit, and O2 saturations 95% on 3 L via nasal cannula. GENERAL: The patient is alert and oriented x3. He appears to be in no acute distress. He is morbidly obese. HEENT: Head is atraumatic, normocephalic. Pupils equal, round, and reactive to light. Extraocular muscles intact. No scleral icterus. Oropharynx is clear without any erythema or exudates. NECK: No adenopathy. No bruits. No JVD. Supple. Nontender. Normal range of motion. LUNGS: Rhonchi noted at the bases, otherwise unremarkable without any wheezes. CARDIOVASCULAR: Positive S1 and S2. No murmurs noted. ABDOMEN: Obese, soft, and nontender. Bowel sounds present. MUSCULOSKELETAL: Positive right arm extremity fistula with thrill and bruit noted. Strength 5+ bilaterally in upper and lower extremities. Moves all extremities equal. Radial and pedal pulses palpable. NEUROLOGICAL: Cranial nerves 2 through 12 grossly intact. No focal deficits noted. Speech is normal. Gait is not assessed. SKIN: Warm, dry, and intact. PSYCHIATRIC: Good mood and affect. LABORATORY DATA: WBC 6.0, RBC 2.82, hemoglobin 8.5, and platelet 164. Sodium 140, potassium 3.3, creatinine 3.17, and glucose 175. Creatine kinase 28, CK-MB 1.5, troponin 0.033. BNP 1162.5. DIAGNOSTIC IMAGING: Chest x-ray showed cardiomegaly with pulmonary vascular congestion, possible small left pleural effusion. ASSESSMENT AND PLAN: 1. Chest pain, likely noncardiac; however, we will trend troponins. His initial troponin is elevated at 0.033, this may likely be secondary to his underlying end-stage renal disease. He is currently asymptomatic at this time. He states this pain while he was eating a sandwich and felt like is his acid reflux, we will also monitor the patient overnight for any further symptoms, we will place on IV Protonix. If the patient's troponin trending upward or if any suspicion for cardiac etiology, we will undergo cardiac workup in the morning. 2. End-stage renal disease, Dr. Fonseca was consulted for further evaluation. The patient has no further indication for any continued dialysis tonight. We will await further recommendations from Dr. Fonseca in the a.m. 3. Hypertension. Continue on the patient's home regimen. 4. Diabetes mellitus, continue to monitor the patient's blood sugars, continue on his home medications and start on insulin sliding scale. 5. Chronic systolic heart failure, continue the patient's home regimen. 6. Gastroesophageal reflux disease, as above we will place on IV Protonix twice daily. 7. Deep venous thrombosis prophylaxis with home dose of Eliquis daily. 8. Code status: Full code. Job ID: [id number]
[2018-10-19 05:36] LABS: #Eosinphils 0.4 thou/uL (0.0-0.7); #Lymphocytes 1.1 thou/uL (1.20-3.40); #Monocytes 0.4 thou/uL (0.11-0.59); #Neutrophils 3.5 thou/uL (1.40-6.50); %Basophils 0.1 % (0.0-1.0); %Eosinophils 6.6 % (0.0-10.0); %Lymphocytes 20.3 % (21.0-51.0); %Monocytes 6.5 % (0.0-10.0); %Neutrophils 66.5 % (42.0-75.0); Mean Corpuscular HGB CONC 32.2 g/dL (32.0-36.0); Mean Corpuscular Hemoglobin 29.7 pg (27.0-31.0); Mean Corpuscular Volume 92.3 fL (78.0-98.0); Mean Platelet Volume 9.1 fL (7.4-10.4); Platelet Count 149 thou/uL (130-400); RBC Distribution Width 14.7 % (11.5-14.5); Red Blood Cell (RBC) Count 2.67 mill/uL (4.70-6.10); White Blood Cell (WBC) Count 5.3 thou/uL (4.8-10.8)
[2018-10-19 05:59] LABS: Anion Gap 16 mmol/L (10-20); BUN (Urea Nitrogen) 38 mg/dL (8.4-25.7); Calc. Creatinine Clearance 48 mL/min (70-130); Calcium 8.9 mg/dL (7.8-10.44); Carbon Dioxide 31 mmol/L (22-29); Chloride 96 mmol/L (98-107); Estimated GFR-MDRD 16; Glucose 152 mg/dL (70-105); Potassium 3.5 mmol/L (3.5-5.1); Sodium 139 mmol/L (136-145)
[2018-10-19] MEDS ORDERED: Pantoprazole 40 MG VIAL IVP SCH (09:00)
--- NOTE | 2018-10-19 10:20 | CON ---
DATE OF CONSULTATION: 10/18/2018 REASON FOR CONSULTATION: End-stage renal disease, on maintenance hemodialysis. HISTORY OF PRESENT ILLNESS: This is a very pleasant 58-year-old gentleman, who presented to the hospital, while on dialysis, had complained of chest pain. The 911 was called and the patient was sent to the ER. The patient had elevated troponin. The patient did not complete dialysis. The patient is complaining of chest pain. PAST MEDICAL HISTORY: Coronary artery disease, congestive heart failure, atrial fibrillation, diabetes mellitus, hypothyroidism, hypertension, end-stage renal disease, tonsillectomy, appendectomy, morbid obesity, noncompliance, tunneled dialysis catheter, AV fistula. FAMILY HISTORY: Negative for ESRD. ALLERGIES: REVIEWED. MEDICATIONS: Home medication list reviewed. REVIEW OF SYSTEMS: A 15-point review of system was performed and negative except for positive noted above. NECK: No swelling or lumps. NOSE: No epistaxis or discharge. EYES: No diplopia or pain. MUSCULOSKELETAL: No joint pain. NEUROPSYCHIATIC SYSTEMS: No suicidal ideation. No ideation. SKIN: Denies any rash or ulcer. CONSTITUTIONAL: No fever or chills. PHYSICAL EXAMINATION: CONSTITUTIONAL: The patient is awake and alert. VITAL SIGNS: Afebrile, pulse 80, breathing is 16, and blood pressure was 131/52. GENERAL APPEARANCE AND MENTAL STATUS: Fair. HEAD/NECK: Normocephalic. Atraumatic. EYES: EOMI. No deformity. EARS: Clear. No ulcers. NOSE: Intact. No lesions. MOUTH: Clear. No discharge. THROAT: Clear. No exudate. LUNGS: Clear. No crackles. CARDIAC: S1, S2. No rub. ABDOMEN: Benign. Bowel sounds positive. GENITALIA/RECTUM: [place] absent. BACK/EXTREMITIES: Lower extremities have edema. NEUROLOGICAL: Alert and motor intact. LABORATORY DATA: Potassium 3.3. ASSESSMENT: 1. Stage 6 chronic kidney disease, no indication for dialysis today. 2. Hypertension, stable. 3. Anemia, stable. 4. Medications based on GFR are appropriate. Job ID: [id number]
--- NOTE | 2018-10-19 11:43 | PRG ---
DATE OF SERVICE: 10/19/2018 SUBJECTIVE: A 58-year-old gentleman, being seen for end-stage renal disease. The patient denied any nausea, vomiting, or chest pain. OBJECTIVE: CONSTITUTIONAL: Awake, alert, in no acute distress. VITAL SIGNS: Afebrile. Pulse 91, breathing 16, and blood pressure 127/58. GENERAL APPEARANCE AND MENTAL STATUS: Fair. HEAD/NECK: Normocephalic. Atraumatic. EYES: EOMI. No deformity. EARS: Clear. No ulcers. NOSE: Intact. No lesions. MOUTH: Clear. No discharge. THROAT: Clear. No exudate. LUNGS: Clear. No crackles. CARDIAC: S1, S2. No rub. ABDOMEN: Benign. Bowel sounds positive. GENITALIA/RECTUM: [place] absent. BACK/EXTREMITIES: Edema 0+. NEUROLOGICAL: Alert and motor intact. SKIN: LYMPHATICS: ASSESSMENT AND RECOMMENDATION: 1. Stage 6 chronic kidney disease, plan dialysis tomorrow. 2. Hypertension, stable. 3. Anemia, stable. 4. Hyperkalemia, stable. Job ID: [id number]
[2018-10-19] MEDS ORDERED: Polyethylene Glycol 3350 17 GM Packet PO PRN (12:54)
--- NOTE | 2018-10-19 12:58 | PDOC.PN ---
- Subjective Encounter Start Date: 10/19/18 Encounter Start Time: 09:30 Subjective: sob is better -: no abd pain or palp - Objective Resuscitation Status - Order Detail: 10/18/18 23:35 Resuscitation Status Routine Co-Sign Provider: Resuscitation Status: FULL: Full Resuscitation MAR Reviewed: Yes Vital Signs & Weight: Vital Signs (12 hours) Temp Pulse Resp BP Pulse Ox 10/19/18 10:55 98.3 F 91 18 128/60 94 L 10/19/18 08:05 98.0 F 92 18 127/58 L 95 10/19/18 04:00 98.0 F 90 20 101/46 L 94 L Weight Weight 360 lb 11.2 oz I&O: 10/18/18 10/19/18 10/20/18 06:59 06:59 06:59 Intake Total 360 Output Total 0 Balance 360 Result Diagrams: 10/19/18 05:08 10/19/18 05:08 Phys Exam - Physical Examination HEENT: PERRLA, moist MMs Neck: no JVD, supple Respiratory: no wheezing, no rales Cardiovascular: RRR, no significant murmur Gastrointestinal: soft, no distention, positive bowel sounds Musculoskeletal: pulses present, edema present Neurological: non-focal, moves all 4 limbs Psychiatric: normal affect, A&O x 3 Dx/Plan (1) Acute on chronic diastolic heart failure Code(s): I50.33 - ACUTE ON CHRONIC DIASTOLIC (CONGESTIVE) HEART FAILURE Status : Acute Comment: ACC AHA Class C, NYHA Class 3. (2) Volume overload Code(s): E87.70 - FLUID OVERLOAD, UNSPECIFIED Status: Acute Qualifiers: Comment: Improving with dialysis. Had HD yesterday. Still has fluid to be removed over time. (3) Anemia of renal disease Code(s): D63.1 - ANEMIA IN CHRONIC KIDNEY DISEASE Status: Chronic Comment: stable (4) CAD (coronary artery disease) Code(s): I25.10 - ATHSCL HEART DISEASE OF [place] CORONARY ARTERY W/O ANG PCTRS Status: Chronic Qualifiers: Coronary Disease-Associated Artery/Lesion type: [place] artery [place] vs. transplanted heart: [place] heart Associated angina: without angina Qualified Code(s): I25.10 - Atherosclerotic heart disease of [place] coronary artery without angina pectoris Comment: stable (5) DM2 (diabetes mellitus, type 2) Status: Chronic Qualifiers: Diabetes mellitus marine oil terminal superintendent insulin use: with marine oil terminal superintendent use Diabetes mellitus complication status: with kidney complications Diabetes mellitus complication detail: with chronic kidney disease Chronic kidney disease stage : on chronic dialysis Qualified Code(s): E11.22 - Type 2 diabetes mellitus with diabetic chronic kidney disease; N18.6 - End stage renal disease; Z79.4 - long term (current) use of insulin; Z99.2 - Dependence on renal dialysis Comment: controlled (6) ESRD (end stage renal disease) on dialysis Code(s): N18.6 - END STAGE RENAL DISEASE; Z99.2 - DEPENDENCE ON RENAL DIALYSIS Status: Chronic Comment: dialysis per nephrology service (7) Gout Code(s): M10.9 - GOUT, UNSPECIFIED Status: Chronic Qualifiers: Gout site: unspecified site Comment: No Exacerbation noted. (8) Hypertension Code(s): I10 - ESSENTIAL (PRIMARY) HYPERTENSION Status: Chronic Qualifiers: Hypertension type: essential hypertension (9) Morbid obesity due to excess calories Code(s): E66.01 - MORBID (SEVERE) OBESITY DUE TO EXCESS CALORIES Status: Chronic (10) Obesity hypoventilation syndrome Code(s): E66.2 - MORBID (SEVERE) OBESITY WITH ALVEOLAR HYPOVENTILATION Status : Chronic Comment: CPAP at night. (11) chronic venous stasis Status: Chronic Comment: with dependent edema - Plan had HD yesterday, will have another session in am -: to ambulate as tolerated -: continue home dose of lipitor, lopressor, lantus -: pain meds and anxiety meds as before -: dc plan when he can amb with rw, ?am after HD * . Review of Systems - Medications/Allergies Allergies/Adverse Reactions: Allergies Allergy/AdvReac Type Severity Reaction Status Date / Time quinapril HCl [From Accupril] Allergy Verified 09/19/18 17:43 Medications: Current Medications Atorvastatin Calcium (Lipitor) 20 mg PO HS JIMENEZ Docusate Sodium (Colace) 100 mg PO DAILY JIMENEZ Gabapentin (Neurontin) 100 mg PO TID JIMENEZ Insulin Glargine (Lantus) 5 units SC QAM [facility] Levothyroxine Sodium (Synthroid) 88 mcg PO DAILY JIMENEZ Lidocaine (Lidoderm 5% Patch) 1 patch TD DAILY JIMENEZ Lorazepam (Ativan) 0.5 mg PO BID PRN PRN Reason: Anxiety Metoprolol Succinate (Toprol Xl) 12.5 mg PO DAILY JIMENEZ Non-Formulary Medication (Ropinirole Hcl [Ropinirole Er]) 4 mg PO HS JIMENEZ Pantoprazole Sodium (Protonix) 40 mg IVP Q12HR [facility] Last Admin: 10/19/18 08:17 Dose: 40 mg Polyethylene Glycol (Miralax) 17 gm PO DAILY PRN PRN Reason: Constipation Sertraline HCl (Zoloft) 25 mg PO DAILY [facility] Sevelamer Carbonate (Renvela) mg PO TID-[facility] Sodium Chloride (Flush - Normal Saline) 10 ml IVF Q12HR [facility] Last Admin: 10/19/18 08:18 Dose: 10 ml Sodium Chloride (Flush - Normal Saline) 10 ml IVF PRN PRN PRN Reason: Saline Flush Tramadol HCl (Ultram) 50 mg PO Q6HR PRN PRN Reason: Pain
[2018-10-19] MEDS: Lorazepam 0.5 MG TAB PO PRN (13:00)
[2018-10-19] MEDS: Gabapentin 100 MG CAP PO SCH ×2 (15:58→21:11)
[2018-10-19] MEDS: Sevelamer Carbonate 800 MG TAB PO SCH (17:03)
[2018-10-19] MEDS ORDERED: Nystatin Powder 15 GM BOT TOP PRN (20:44)
[2018-10-19] MEDS: Atorvastatin Calcium 20 MG TAB PO SCH (21:10)
[2018-10-19] MEDS: traMADol HCl 50 MG TAB PO PRN (21:33)
[2018-10-20] MEDS: Levothyroxine Sodium 88 MCG TAB PO SCH (05:39)
[2018-10-20 06:36] LABS: #Eosinphils 0.2 thou/uL (0.0-0.7); #Lymphocytes 1.2 thou/uL (1.20-3.40); #Monocytes 0.3 thou/uL (0.11-0.59); #Neutrophils 3.7 thou/uL (1.40-6.50); %Basophils 0.3 % (0.0-1.0); %Eosinophils 3.6 % (0.0-10.0); %Lymphocytes 22.1 % (21.0-51.0); %Monocytes 5.6 % (0.0-10.0); %Neutrophils 68.4 % (42.0-75.0); Hemoglobin 7.9 g/dL (14.0-18.0); Mean Corpuscular Hemoglobin 31.2 pg (27.0-31.0); Mean Corpuscular Volume 91.8 fL (78.0-98.0); Mean Platelet Volume 9.4 fL (7.4-10.4); Platelet Count 151 thou/uL (130-400); RBC Distribution Width 14.5 % (11.5-14.5); Red Blood Cell (RBC) Count 2.53 mill/uL (4.70-6.10); White Blood Cell (WBC) Count 5.4 thou/uL (4.8-10.8)
[2018-10-20 06:56] LABS: Anion Gap 15 mmol/L (10-20); BUN (Urea Nitrogen) 51 mg/dL (8.4-25.7); Calc. Creatinine Clearance 41 mL/min (70-130); Calcium 9.3 mg/dL (7.8-10.44); Carbon Dioxide 31 mmol/L (22-29); Chloride 96 mmol/L (98-107); Estimated GFR-MDRD 14; Glucose 144 mg/dL (70-105); Potassium 3.8 mmol/L (3.5-5.1); Sodium 138 mmol/L (136-145)
[2018-10-20 08:52] LABS: HBSAg Index 0.24 S/CO (0-0.99); Hep B Surf Ag Non-Reactive S/CO (NonReactive)
--- NOTE | 2018-10-20 09:38 | PDOC.PN ---
- Subjective Encounter Start Date: 10/20/18 Encounter Start Time: 08:45 Subjective: no sob -: is getting HD now -: has not ambulated so far - Objective Resuscitation Status - Order Detail: 10/18/18 23:35 Resuscitation Status Routine Co-Sign Provider: Resuscitation Status: FULL: Full Resuscitation MAR Reviewed: Yes Vital Signs & Weight: Vital Signs (12 hours) Temp Pulse Resp BP Pulse Ox 10/20/18 07:55 97.7 F 88 17 108/27 L 97 10/20/18 03:10 98.5 F 85 21 H 137/62 98 10/20/18 00:00 98.9 F 87 22 H 113/62 92 L Weight Admit Weight 360 lb 11.2 oz Weight 362 lb 3 oz I&O: 10/19/18 10/20/18 10/21/18 06:59 06:59 06:59 Intake Total 360 1210 Output Total 0 125 Balance 360 1085 Result Diagrams: 10/20/18 06:08 10/20/18 06:08 Phys Exam - Physical Examination HEENT: PERRLA, moist MMs Neck: no JVD, supple Respiratory: no wheezing, no rales Cardiovascular: RRR, no significant murmur Gastrointestinal: soft, non-tender, positive bowel sounds Musculoskeletal: pulses present, edema present Neurological: non-focal, moves all 4 limbs Psychiatric: normal affect, A&O x 3 Dx/Plan (1) Acute on chronic diastolic heart failure Code(s): I50.33 - ACUTE ON CHRONIC DIASTOLIC (CONGESTIVE) HEART FAILURE Status : Acute Comment: ACC AHA Class C, NYHA Class 3. (2) Volume overload Code(s): E87.70 - FLUID OVERLOAD, UNSPECIFIED Status: Acute Qualifiers: Comment: Improving with dialysis. Still has fluid to be removed over time. (3) Anemia of renal disease Code(s): D63.1 - ANEMIA IN CHRONIC KIDNEY DISEASE Status: Chronic Comment: stable (4) CAD (coronary artery disease) Code(s): I25.10 - ATHSCL HEART DISEASE OF [place] CORONARY ARTERY W/O ANG PCTRS Status: Chronic Qualifiers: Coronary Disease-Associated Artery/Lesion type: [place] artery [place] vs. transplanted heart: [place] heart Associated angina: without angina Qualified Code(s): I25.10 - Atherosclerotic heart disease of [place] coronary artery without angina pectoris Comment: stable (5) DM2 (diabetes mellitus, type 2) Status: Chronic Qualifiers: Diabetes mellitus long term care social worker insulin use: with long term care social worker use Diabetes mellitus complication status: with kidney complications Diabetes mellitus complication detail: with chronic kidney disease Chronic kidney disease stage : on chronic dialysis Qualified Code(s): E11.22 - Type 2 diabetes mellitus with diabetic chronic kidney disease; N18.6 - End stage renal disease; Z79.4 - superintendent terminal (current) use of insulin; Z99.2 - Dependence on renal dialysis Comment: controlled (6) ESRD (end stage renal disease) on dialysis Code(s): N18.6 - END STAGE RENAL DISEASE; Z99.2 - DEPENDENCE ON RENAL DIALYSIS Status: Chronic Comment: dialysis per nephrology service (7) Gout Code(s): M10.9 - GOUT, UNSPECIFIED Status: Chronic Qualifiers: Gout site: unspecified site Comment: No Exacerbation noted. (8) Hypertension Code(s): I10 - ESSENTIAL (PRIMARY) HYPERTENSION Status: Chronic Qualifiers: Hypertension type: essential hypertension (9) Morbid obesity due to excess calories Code(s): E66.01 - MORBID (SEVERE) OBESITY DUE TO EXCESS CALORIES Status: Chronic (10) Obesity hypoventilation syndrome Code(s): E66.2 - MORBID (SEVERE) OBESITY WITH ALVEOLAR HYPOVENTILATION Status : Chronic Comment: CPAP at night. (11) chronic venous stasis Status: Chronic Comment: with dependent edema - Plan PT to mobilize today in hallway -: Is getting dialyzed now -: continue eliquis, lipitor, toprol xl -: pt is allergic to irene/arb's -: likely might need placement if he didn't ambulate well * . Review of Systems - Medications/Allergies Allergies/Adverse Reactions: Allergies Allergy/AdvReac Type Severity Reaction Status Date / Time quinapril HCl [From Accupril] Allergy Verified 09/19/18 17:43 Medications: Current Medications Apixaban (Eliquis) 2.5 mg PO DAILY REPLACED BY [facility] Atorvastatin Calcium (Lipitor) 20 mg PO HS REPLACED BY [facility] Last Admin: 10/19/18 21:10 Dose: 20 mg Docusate Sodium (Colace) 100 mg PO DAILY REPLACED BY [facility] Gabapentin (Neurontin) 100 mg PO TID REPLACED BY [facility] Last Admin: 10/19/18 21:11 Dose: 100 mg Insulin Glargine 5 units/ (Miscellaneous Medication) 0.05 mls @ 0 mls/hr SC QAM REPLACED BY [facility] Levothyroxine Sodium (Synthroid) 88 mcg PO 0600 JIMENEZ Last Admin: 10/20/18 05:39 Dose: 88 mcg Lidocaine (Lidoderm 5% Patch) 1 patch TD DAILY REPLACED BY [facility] Lorazepam (Ativan) 0.5 mg PO BID PRN PRN Reason: Anxiety Last Admin: 10/19/18 13:00 Dose: 0.5 mg Metoprolol Succinate (Toprol Xl) 12.5 mg PO DAILY REPLACED BY [facility] Miscellaneous Medication (Lidocaine Patch Removal) 1 each TOP HS REPLACED BY [facility] Nystatin (Mycostatin Powder) 1 gm TOP BIDPRN PRN PRN Reason: Topical Irritations Pantoprazole Sodium (Protonix) 40 mg PO DAILY REPLACED BY [facility] Polyethylene Glycol (Miralax) 17 gm PO DAILY PRN PRN Reason: Constipation Ropinirole HCl (Requip) 4 mg PO HS REPLACED BY [facility] Sertraline HCl (Zoloft) 25 mg PO DAILY REPLACED BY [facility] Sevelamer Carbonate (Renvela) 1,600 mg PO TID-WM REPLACED BY [facility] Last Admin: 10/19/18 17:03 Dose: 1,600 mg Sodium Chloride (Flush - Normal Saline) 10 ml IVF Q12HR [facility] Last Admin: 10/19/18 21:11 Dose: 10 ml Sodium Chloride (Flush - Normal Saline) 10 ml IVF PRN PRN PRN Reason: Saline Flush Tramadol HCl (Ultram) 50 mg PO Q6HR PRN PRN Reason: Pain Last Admin: 10/19/18 21:33 Dose: 50 mg
[2018-10-20] MEDS: Sevelamer Carbonate 800 MG TAB PO SCH ×3 (12:52→17:38)
[2018-10-20] MEDS: Gabapentin 100 MG CAP PO SCH ×3 (12:52→20:37)
[2018-10-20] MEDS: traMADol HCl 50 MG TAB PO PRN ×2 (12:54→20:37)
[2018-10-20] MEDS: Docusate 100 MG CAP PO SCH (12:57)
[2018-10-20] MEDS: Insulin Glargine 5 UNITS in Pre-Filled Syringe SC SCH (12:57)
[2018-10-20] MEDS: Lidocaine 5% Patch TD SCH (12:57)
[2018-10-20] MEDS: Lorazepam 0.5 MG TAB PO PRN ×2 (13:02→23:16)
--- NOTE | 2018-10-20 15:02 | PRG ---
DATE OF SERVICE: 10/20/2018 SUBJECTIVE: A 58-year-old gentleman, being seen for end-stage renal disease. The patient denied any nausea, vomiting, or chest pain. OBJECTIVE: CONSTITUTIONAL: Awake, alert, in no acute distress. VITAL SIGNS: Afebrile. Pulse 77, breathing 16, and blood pressure 100/60. GENERAL APPEARANCE AND MENTAL STATUS: Fair. HEAD/NECK: Normocephalic. Atraumatic. EYES: EOMI. No deformity. EARS: Clear. No ulcers. NOSE: Intact. No lesions. MOUTH: Clear. No discharge. THROAT: Clear. No exudate. LUNGS: Clear. No crackles. CARDIAC: S1, S2. No rub. ABDOMEN: Benign. Bowel sounds positive. GENITALIA/RECTUM: [place] absent. BACK/EXTREMITIES: Edema 0+. NEUROLOGICAL: Alert and motor intact. SKIN: LYMPHATICS: LABORATORY DATA: Hemoglobin 7.9. ASSESSMENT: 1. Stage 6 chronic kidney disease, continue hemodialysis. 2. Hypertension, stable. 3. Anemia, stable. 4. Medication based on GFR, appropriate. Job ID: [id number]
[2018-10-20] MEDS: Atorvastatin Calcium 20 MG TAB PO SCH (20:38)
[2018-10-20] MEDS ORDERED: Lidocaine Patch Removal TOP SCH (21:00)
[2018-10-20] MEDS ORDERED: rOPINIRole HCl 2 MG TAB PO SCH (21:00)
[2018-10-21] MEDS: Levothyroxine Sodium 88 MCG TAB PO SCH (05:14)
[2018-10-21 08:27] LABS: #Eosinphils 0.2 thou/uL (0.0-0.7); #Monocytes 0.4 thou/uL (0.11-0.59); #Neutrophils 3.4 thou/uL (1.40-6.50); %Basophils 0.9 % (0.0-1.0); %Eosinophils 4.6 % (0.0-10.0); %Monocytes 8.4 % (0.0-10.0); %Neutrophils 66.1 % (42.0-75.0); Hemoglobin 8.8 g/dL (14.0-18.0); Mean Corpuscular HGB CONC 31.5 g/dL (32.0-36.0); Mean Corpuscular Volume 91.9 fL (78.0-98.0); Platelet Count 166 thou/uL (130-400); RBC Distribution Width 14.6 % (11.5-14.5); Red Blood Cell (RBC) Count 3.04 mill/uL (4.70-6.10); White Blood Cell (WBC) Count 5.1 thou/uL (4.8-10.8)
[2018-10-21] MEDS: Sevelamer Carbonate 800 MG TAB PO SCH (08:34)
[2018-10-21] MEDS: Docusate 100 MG CAP PO SCH (08:35)
[2018-10-21] MEDS: Gabapentin 100 MG CAP PO SCH (08:35)
[2018-10-21] MEDS: Lidocaine 5% Patch TD SCH (08:35)
[2018-10-21] MEDS: Insulin Glargine 5 UNITS in Pre-Filled Syringe SC SCH (08:35)
[2018-10-21 08:43] LABS: Anion Gap 14 mmol/L (10-20); BUN (Urea Nitrogen) 37 mg/dL (8.4-25.7); Calc. Creatinine Clearance 53 mL/min (70-130); Calcium 9.3 mg/dL (7.8-10.44); Carbon Dioxide 30 mmol/L (22-29); Chloride 97 mmol/L (98-107); Estimated GFR-MDRD 19; Glucose 110 mg/dL (70-105); Potassium 3.9 mmol/L (3.5-5.1); Sodium 137 mmol/L (136-145)
[2018-10-21] MEDS ORDERED: Apixaban 2.5 MG TAB PO SCH (09:00)
--- NOTE | 2018-10-21 10:30 | PRG ---
DATE OF SERVICE: 10/21/2018 SUBJECTIVE: This is a 58-year-old gentleman being seen for end-stage kidney disease. The patient denies any nausea, vomiting, or chest pain. OBJECTIVE: CONSTITUTIONAL: On examination, the patient is awake, alert. VITAL SIGNS: Afebrile, pulse 93, breathing is 16, and blood pressure 159/74. GENERAL APPEARANCE AND MENTAL STATUS: Fair. HEAD/NECK: Normocephalic. Atraumatic. EYES: EOMI. No deformity. EARS: Clear. No ulcers. NOSE: Intact. No lesions. MOUTH: Clear. No discharge. THROAT: Clear. No exudate. LUNGS: Clear. No crackles. CARDIAC: S1, S2. No rub. ABDOMEN: Benign. Bowel sounds positive. GENITALIA/RECTUM: [place] absent. BACK/EXTREMITIES: Edema 0+. NEUROLOGICAL: Alert and motor intact. LABORATORY DATA: Labs show hemoglobin 8.8. Potassium 4. ASSESSMENT: 1. Stage 6 chronic kidney disease, plan hemodialysis per schedule. 2. Hypertension, stable. 3. Anemia, stable. 4. Medication based on glomerular filtration rate are appropriate. Job ID: [id number]
[2018-10-21 10:59] VITALS: BP 131/73; TEMP 97.7
--- NOTE | 2018-10-21 11:11 | PDOC.PN ---
- Subjective Encounter Start Date: 10/21/18 Encounter Start Time: 08:45 Subjective: no sob, feels better - Objective Resuscitation Status - Order Detail: 10/18/18 23:35 Resuscitation Status Routine Co-Sign Provider: Resuscitation Status: FULL: Full Resuscitation MAR Reviewed: Yes Vital Signs & Weight: Vital Signs (12 hours) Temp Pulse Resp BP Pulse Ox 10/21/18 10:58 97.7 F 90 16 131/73 100 10/21/18 08:16 98.1 F 88 16 159/74 H 93 L 10/21/18 03:07 98.1 F 91 21 H 138/58 L 94 L Weight Admit Weight 360 lb 11.2 oz Weight 355 lb 13.217 oz I&O: 10/20/18 10/21/18 10/22/18 06:59 06:59 06:59 Intake Total 1210 1460 Output Total 125 4600 Balance 1085 -3140 Result Diagrams: 10/21/18 07:54 10/21/18 07:54 Phys Exam - Physical Examination HEENT: PERRLA, moist MMs Neck: no JVD, supple Respiratory: no wheezing, no rales Cardiovascular: RRR, no significant murmur Gastrointestinal: soft, non-tender, positive bowel sounds Musculoskeletal: pulses present, edema present Neurological: non-focal, moves all 4 limbs Psychiatric: normal affect, A&O x 3 Dx/Plan (1) Acute on chronic diastolic heart failure Code(s): I50.33 - ACUTE ON CHRONIC DIASTOLIC (CONGESTIVE) HEART FAILURE Status : Acute Comment: ACC AHA Class C, NYHA Class 3. (2) Volume overload Code(s): E87.70 - FLUID OVERLOAD, UNSPECIFIED Status: Acute Qualifiers: Comment: Improving with dialysis. Still has fluid to be removed over time. (3) Anemia of renal disease Code(s): D63.1 - ANEMIA IN CHRONIC KIDNEY DISEASE Status: Chronic Comment: stable (4) CAD (coronary artery disease) Code(s): I25.10 - ATHSCL HEART DISEASE OF [place] CORONARY ARTERY W/O ANG PCTRS Status: Chronic Qualifiers: Coronary Disease-Associated Artery/Lesion type: [place] artery [place] vs. transplanted heart: [place] heart Associated angina: without angina Qualified Code(s): I25.10 - Atherosclerotic heart disease of [place] coronary artery without angina pectoris Comment: stable (5) DM2 (diabetes mellitus, type 2) Status: Chronic Qualifiers: Diabetes mellitus terminal superintendent insulin use: with terminal superintendent use Diabetes mellitus complication status: with kidney complications Diabetes mellitus complication detail: with chronic kidney disease Chronic kidney disease stage : on chronic dialysis Qualified Code(s): E11.22 - Type 2 diabetes mellitus with diabetic chronic kidney disease; N18.6 - End stage renal disease; Z79.4 - residential (current) use of insulin; Z99.2 - Dependence on renal dialysis Comment: controlled (6) ESRD (end stage renal disease) on dialysis Code(s): N18.6 - END STAGE RENAL DISEASE; Z99.2 - DEPENDENCE ON RENAL DIALYSIS Status: Chronic Comment: dialysis per nephrology service (7) Gout Code(s): M10.9 - GOUT, UNSPECIFIED Status: Chronic Qualifiers: Gout site: unspecified site Comment: No Exacerbation noted. (8) Hypertension Code(s): I10 - ESSENTIAL (PRIMARY) HYPERTENSION Status: Chronic Qualifiers: Hypertension type: essential hypertension (9) Morbid obesity due to excess calories Code(s): E66.01 - MORBID (SEVERE) OBESITY DUE TO EXCESS CALORIES Status: Chronic (10) Obesity hypoventilation syndrome Code(s): E66.2 - MORBID (SEVERE) OBESITY WITH ALVEOLAR HYPOVENTILATION Status : Chronic Comment: CPAP at night. (11) chronic venous stasis Status: Chronic Comment: with dependent edema - Plan had HD with removal of nearly 4 liters yesterday -: hemostable -: dc pt to [facility] today * .
--- NOTE | 2018-10-21 18:30 | EKG ---
Test Reason : Blood Pressure : / mmHG Vent. Rate : 086 BPM Atrial Rate : 101 BPM P-R Int : 000 ms QRS Dur : 104 ms QT Int : 380 ms P-R-T Axes : 000 148 101 degrees QTc Int : 454 ms Atrial fibrillation with a competing junctional pacemaker with premature ventricular or aberrantly co nducted complexes Right axis deviation Incomplete right bundle branch block Possible Right ventricular hypertrophy Nonspecific ST abnormality , probably digitalis effect Abnormal ECG Confirmed by ERIN MATIAS DO ([id number]), editor [employer] journal RENÉ ALEXANDER ([id number]) on 10/21/2018 6:29:25 PM Referred By: Confirmed By:ERIN MATIAS DO
--- NOTE | 2018-10-23 10:44 | DIS ---
DATE OF ADMISSION: 10/19/2018 DATE OF DISCHARGE: 10/21/2018 DISCHARGE DISPOSITION: [facility] PRIMARY DISCHARGE DIAGNOSES: Acute on chronic congestive heart failure exacerbation with diastolic dysfunction, class C; volume overload; and end-stage renal disease, on hemodialysis. SECONDARY DISCHARGE DIAGNOSES: Chronic anemia due to renal disease; coronary artery disease; diabetes mellitus, type 2; obesity; hypertension; gout; obesity hypoventilation syndrome; chronic venous stasis in both lower extremities. PROCEDURES DONE DURING HOSPITALIZATION: Chest x-ray done showed cardiomegaly with pulmonary vascular congestion. Small left pleural effusion was seen. H and H of 8 and 28, platelet count 166, MCV is 91. Discharge BUN and creatinine are 37 and 3.3. Troponin I was indeterminate, peaking up to 0.03. CK-MB 1.5. BNP 1162. Albumin is 3.1. HBS antigen was nonreactive. INPATIENT CONSULT: Dr. Fonseca for Nephrology. DISCHARGE MEDICATIONS: 1. Eliquis 2.5 mg daily. 2. Lantus 5 units subcu q.a.m. 3. Levothyroxine 88 mcg p.o. daily. 4. Lidoderm transdermal patch 5% daily. 5. Lorazepam 0.5 mg twice daily p.r.n. for anxiety. 6. Metoprolol extended release 12.5 mg daily. 7. MiraLax 17 g daily. 8. Protonix 40 mg daily. 9. Ropinirole extended release 4 mg p.o. at bedtime. 10. Zoloft 25 mg daily. 11. Sevelamer 1600 mg p.o. three times daily. 12. Ultram p.r.n. for pain. 13. Lipitor 20 mg p.o. at bedtime. 14. Procrit 10,000 units subcu once weekly. 15. Gabapentin 100 mg p.o. three times daily. ALLERGIES: ALLERGIC TO QUINAPRIL. DISCHARGE PLAN: The patient to follow up with primary care physician in 1 week. BRIEF COURSE DURING HOSPITALIZATION: The patient initially got admitted on the after he was sent from [facility] for complaints of chest pain and shortness of breath. The patient had volume overload and was essentially admitted for acute on chronic congestive heart failure exacerbation with systolic and diastolic dysfunction. His prior ejection fraction was 45%. He has had [id number] hemodialysis done. He needs to continue outpatient dialysis as before. He was evaluated by Dr. Fonseca from Nephrology. The patient was counseled with regard to medication and dietary compliance. He is hemodynamically stable and will be shortly discharged back to [facility]. Please note, the patient is morbidly obese with a BMI of 55 and needs to work with physical therapy and mobilize himself. Also, he has life-threatening obesity, which needs to be addressed via primary care physician. Please see a [id number] documentation for [facility] A total of 35 minutes was spent on discharge plan. Job ID: [id number] [facility]
== END 2018-10-21 12:20 | DRG 291 ==
LOC: ERS 18:11 → 2NO 20:00 → OBSVTOIN 10-19 19:00
PROVIDERS: ADMIT Internal Medicine; ATTEND Internal Medicine
DX: I13.2 Hypertensive heart and chronic kidney disease with heart failure and with stage 5 chronic kidney disease, or end stage renal disease (principal); N18.6 End stage renal disease; I50.43 Acute on chronic combined systolic (congestive) and diastolic (congestive) heart failure; E66.2 Morbid (severe) obesity with alveolar hypoventilation; Z68.43 Body mass index [BMI] 50.0-59.9, adult; Z88.8 Allergy status to other drugs, medicaments and biological substances; I25.10 Atherosclerotic heart disease of native coronary artery without angina pectoris; I25.2 Old myocardial infarction; I48.91 Unspecified atrial fibrillation; E87.6 Hypokalemia; Z99.2 Dependence on renal dialysis; K21.9 Gastro-esophageal reflux disease without esophagitis; E11.22 Type 2 diabetes mellitus with diabetic chronic kidney disease; E03.9 Hypothyroidism, unspecified; M19.90 Unspecified osteoarthritis, unspecified site; Z79.899 Other long term (current) drug therapy; Z79.4 Long term (current) use of insulin; D63.1 Anemia in chronic kidney disease; M10.9 Gout, unspecified; I87.8 Other specified disorders of veins; Z91.19 Patient's noncompliance with other medical treatment and regimen
CPT/HCPCS: 36415; 71045; 80048; 80053; 82550; 82553; 83880; 84484; 85025; 87340; 90935; 93005; 94760; C9113; G0257; G8978-GP-CM; G8979-GP-CK; G8987-GO-CM; G8988-GO-CL

== ENCOUNTER 2018-10-29 11:27 | Observation (INO) | payer MEDICARE, MEDICAID ==
--- NOTE | 2018-10-29 13:02 | RAD ---
CHEST 1 VIEW: Date: 10/29/18 HISTORY: Cough. COMPARISON: 10/18/18. FINDINGS: Cardiac silhouette is magnified and enlarged. Pulmonary vasculature is engorged with widespread retic ulonodular and interstitial prominence, greater than on the prior study. Patchy bilateral perihilar a nd bibasilar infiltrates. Mediastinum is midline with aortic calcification. No evidence of pneumothor ax. IMPRESSION: CHF. Slightly worse than on the 10/18/18 exam. POS: LIZAH
[2018-10-29 13:19] LABS: #Eosinphils 0.4 thou/uL (0.0-0.7); #Lymphocytes 1.3 thou/uL (1.20-3.40); #Monocytes 0.5 thou/uL (0.11-0.59); #Neutrophils 5.2 thou/uL (1.40-6.50); %Basophils 0.6 % (0.0-1.0); %Eosinophils 5.1 % (0.0-10.0); %Lymphocytes 17.5 % (21.0-51.0); %Monocytes 6.2 % (0.0-10.0); %Neutrophils 70.6 % (42.0-75.0); Hemoglobin 8.3 g/dL (14.0-18.0); Mean Corpuscular HGB CONC 31.9 g/dL (32.0-36.0); Mean Corpuscular Hemoglobin 29.2 pg (27.0-31.0); Mean Corpuscular Volume 91.3 fL (78.0-98.0); Mean Platelet Volume 8.6 fL (7.4-10.4); Platelet Count 187 thou/uL (130-400); RBC Distribution Width 15.1 % (11.5-14.5); Red Blood Cell (RBC) Count 2.83 mill/uL (4.70-6.10); White Blood Cell (WBC) Count 7.3 thou/uL (4.8-10.8)
[2018-10-29 13:32] LABS: ALT (SGPT) 7 U/L (8-55); AST (SGOT) 8 U/L (5-34); Albumin 3.1 g/dL (3.5-5.0); Alkaline Phosphatase 106 U/L (40-150); Anion Gap 17 mmol/L (10-20); BUN (Urea Nitrogen) 37 mg/dL (8.4-25.7); Bilirubin, Total 0.6 mg/dL (0.2-1.2); Calc. Creatinine Clearance 0 mL/min (70-130); Calcium 9.1 mg/dL (7.8-10.44); Carbon Dioxide 29 mmol/L (22-29); Chloride 96 mmol/L (98-107); Estimated GFR-MDRD 17; Globulin 3.8 g/dL (2.4-3.5); Glucose 140 mg/dL (70-105); Potassium 3.6 mmol/L (3.5-5.1); Protein, Total 6.9 g/dL (6.0-8.3); Sodium 138 mmol/L (136-145)
[2018-10-29 13:54] LABS: CKMB 0.9 ng/mL (0-6.6)
[2018-10-29] MEDS ORDERED: Furosemide 40 MG/4 ML VIAL SLOW IVP SCH (17:30)
[2018-10-29] MEDS ORDERED: Furosemide 40 MG/4 ML VIAL ONE (19:30)
--- NOTE | 2018-10-30 01:12 | CON ---
DATE OF CONSULTATION: 10/28/2018 TYPE OF CONSULTATION: Nephrology. REASON FOR CONSULTATION: Stage 6 chronic kidney disease, on maintenance hemodialysis. HISTORY OF PRESENT ILLNESS: This is a 58-year-old noncompliant patient who presents to the hospital ER frequently. Presents to the hospital with increasing shortness of breath for the last 1 to 2 days. The patient had dialysis and had 3 L of ultrafiltration. The patient at this time is resting comfortably. Denies any nausea, vomiting, or chest pain. PAST MEDICAL HISTORY: Significant for, 1. End-stage renal disease, on hemodialysis Tuesday, Tuesday, and Tuesday. 2. History of hypertension. 3. Morbid obesity. 4. History of tunneled dialysis catheter. 5. History of multiple episodes of hospitalizations. 6. Hypothyroidism. 7. Diabetes mellitus. 8. Tonsillectomy. 9. Appendectomy. 10. AV fistula tunneled dialysis catheter, multiple temporary catheters. FAMILY HISTORY: Negative for ESRD. ALLERGIES: REVIEWED. HOME MEDICATION LIST: Reviewed. REVIEW OF SYSTEMS: A 15-point review of systems was performed and was negative except for positives noted above. NECK: No swelling or lumps. NOSE: No epistaxis or discharge. EYES: No diplopia or pain. MUSCULOSKELETAL: No joint pain. NEUROPSYCHIATIC SYSTEMS: No suicidal ideation. No ideation. SKIN: Denies any rash or ulcer. CONSTITUTIONAL: No fever or chills. PHYSICAL EXAMINATION: GENERAL: The patient is awake and alert. VITAL SIGNS: Pulse 75, breathing is 16, blood pressure was 136/80. GENERAL APPEARANCE AND MENTAL STATUS: Fair. HEAD/NECK: Normocephalic. Atraumatic. EYES: EOMI. No deformity. EARS: Clear. No ulcers. NOSE: Intact. No lesions. MOUTH: Clear. No discharge. THROAT: Clear. No exudate. LUNGS: Clear. No crackles. CARDIAC: S1, S2. No rub. ABDOMEN: Benign. Bowel sounds positive. GENITALIA/RECTUM: [place] absent. BACK/EXTREMITIES: Edema 0+. NEUROLOGICAL: Alert and motor intact. LABORATORY DATA: Labs show potassium is 3.6. Hemoglobin 8.6. ASSESSMENT AND PLAN: 1. Stage 6 chronic kidney disease, planned hemodialysis in the morning. 2. Pulmonary edema. Give Lasix 40 to 80 mg based on urine output. 3. Anemia, stable. 4. Medication based on GFR appropriate. Overall prognosis is poor. The patient will need dialysis 4 times a week. Noncompliance is a major issue. Job ID: [id number] [facility]
--- NOTE | 2018-10-30 01:48 | HP ---
PRIMARY CARE PHYSICIAN: Dr. Watts. MARINE ERECTOR: Dr. Fonseca. CHIEF COMPLAINT: Shortness of breath. HISTORY OF PRESENT ILLNESS: Mr. Lyons is a 58-year-old male, who reports to the emergency room today for increasing shortness of breath, reports that he has felt this way for a month, but worse in the last several days. Of note, he was here for similar symptoms on 10/19/2018 and discharged on 10/21/2018. At that time, his diagnoses were acute on chronic congestive heart failure exacerbation with diastolic dysfunction, class C; volume overload; and end-stage renal disease, on hemodialysis. Also chronic anemia due to renal disease; coronary artery disease; diabetes, type 2; obesity; hypertension; gout; obesity hypoventilation syndrome; and chronic venous stasis in both lower extremities. His lab values on this visit in the emergency room are very similar today where they were when he was admitted on his last admission. Creatinine 3.62. Also has two troponins in the indeterminate range at 0.032 and 0.030, which are similar to his presentation on 10/18. BNP is 1471, which is slightly increased from 1162 on 10/18/2018. Dr. Fonseca is his benzene worker. The patient has hemodialysis on Tuesday, Tuesday, and Tuesday. Reports this dialysis was scheduled on Tuesday and they pulled, he believes, 2 L of fluid off. Reports it did not really help. Reports that his shortness of breath increased today, and he presented to the emergency room. The patient was admitted to observation for further management. PAST MEDICAL HISTORY: As stated above, significant for, 1. Coronary artery disease. 2. Chronic systolic heart failure with ejection fraction of 45%. 3. Atrial fibrillation. 4. Diabetes mellitus. 5. Hypothyroidism. 6. Hypertension. 7. Osteoarthritis. 8. End-stage renal disease. 9. Chronic anemia. 10. Hypoventilation syndrome. 11. Chronic venous stasis in both lower extremities. 12. End-stage renal, requiring hemodialysis. PAST SURGICAL HISTORY: Includes, 1. Appendectomy. 2. Tonsillectomy. 3. Left leg surgery. 4. Right AV shunt. FAMILY HISTORY: Significant for diabetes. ALLERGIES: QUINAPRIL AND ACCUPRIL. SOCIAL HISTORY: Denies tobacco use or alcohol use. Denies any illicit drug use. He is in a halfway. DISCHARGE MEDICATIONS: 1. Eliquis 2.5 mg daily. 2. Lantus 5 units subcu q.a.m. 3. Levothyroxine 88 mcg p.o. daily. 4. Lidoderm transdermal patch 5% daily. 5. Lorazepam 0.5 mg p.o. twice daily p.r.n. for anxiety. 6. Metoprolol extended release 12.5 mg daily. 7. MiraLAX 17 g daily. 8. Protonix 40 mg daily. 9. Ropinirole extended release 4 mg p.o. at bedtime. 10. Zoloft 25 mg p.o. daily. 11. Sevelamer 1600 mg p.o. t.i.d. 12. Ultram p.r.n. for pain. 13. Lipitor 20 mg p.o. at bedtime. 14. Procrit 10,000 units subcu once weekly. 15. Gabapentin 100 mg p.o. t.i.d. REVIEW OF SYSTEMS: The patient reports some shortness of breath. Denies any chest pain or palpitations. All other systems are reviewed and are negative unless mentioned in the HPI. PHYSICAL EXAMINATION: VITAL SIGNS: Blood pressure 136/74, pulse is 77, respirations are 25, and pO2 is 100% on 4 L of oxygen. GENERAL: The patient appears nontoxic. He is morbidly obese. He is alert and oriented to person, place, and time. HEENT: Head is atraumatic and normocephalic. NECK: Trachea is midline. No tenderness. RESPIRATORY/CHEST: Rhonchi bilaterally. There is a faint wheeze on the right side. He is on oxygen by nasal cannula. Reports he uses at the halfway. CARDIOVASCULAR: Heart rate is regular rate and rhythm. Heart sounds are normal. ABDOMEN: Nontender on palpation. Exam is limited by body habitus. EXTREMITIES: Upper extremity; normal inspection. Sensation is intact. Radial pulses are normal. Lower extremity; sensation is intact. Inspection with chronic stasis discoloration. Trace edema bilaterally. Pedal pulse is equal bilaterally. NEURO: Oriented to person, place, and time. Speech is normal. SKIN: Warm, dry, and normal in color. Discoloration to bilateral lower extremities. PERTINENT LABORATORY DATA: BNP 1471. Troponin slightly elevated at 0.032. CK-MB is 0.9. Sodium is 138, potassium 3.6, chloride is 96, carbon dioxide is 29, gap is 17, BUN is 37, creatinine is 3.62, GFR is 17, glucose is 140, calcium 9.1, albumin 3.1, globulin 3.8, alkaline phosphatase is 106, AST is 8, and ALT is 7. White blood cell count is 7.3, RBC is 2.83, hemoglobin is 8.3, hematocrit is 25.8, and platelet count is 187. The patient did have a chest x-ray, which showed congestive heart failure, slightly worsened on 10/18/2018. ASSESSMENT AND PLAN: 1. Acute on chronic congestive heart failure, fluid overload. We will consult Dr. Fonseca. For this admission, he will need dialysis too. Discussion with him states that the patient could have some Lasix as he does make some urine. We ordered x1 now, may repeat in the a.m. 2. Chronic renal failure, on hemodialysis. Dr. Fonseca will arrange for tomorrow. 3. Diabetes. We will continue home medication. We will cover with sliding scale as needed. 4. Hypothyroidism. We will continue his home medication. 5. Hypertension. We will continue his home medication. We will monitor. P.r.n. medication as needed. 6. Gastroesophageal reflux disease. We will continue home Protonix. 7. Deep vein thrombosis prophylaxis. We will continue his Eliquis. 8. Code status is full. 9. Hospital course will be dependent on clinical findings. Job ID: [id number]
--- NOTE | 2018-10-30 11:05 | PDOC.PN ---
- Subjective Encounter Start Date: 10/30/18 Encounter Start Time: 11:04 Subjective: comfortable, states he is trying to cut back on fluids - Objective MAR Reviewed: Yes Vital Signs & Weight: Vital Signs (12 hours) Temp Pulse Resp BP Pulse Ox 10/30/18 07:52 98.4 F 80 26 H 93/67 10/30/18 04:00 98.6 F 76 22 H 111/70 99 I&O: 10/29/18 10/30/18 10/31/18 06:59 06:59 06:59 Intake Total 325 Output Total 0 Balance 325 Result Diagrams: 10/29/18 13:10 10/29/18 13:10 Radiology Reviewed by me: Yes (cxr- cardiomegaly, chf) Phys Exam - Physical Examination Neck: no JVD basilar rales Cardiovascular: no significant murmur, irregular Gastrointestinal: soft, positive bowel sounds Musculoskeletal: edema present Dx/Plan (1) Acute on chronic diastolic heart failure Code(s): I50.33 - ACUTE ON CHRONIC DIASTOLIC (CONGESTIVE) HEART FAILURE Status : Acute Comment: ACC AHA Class C, NYHA Class 3. (2) Anemia Code(s): D64.9 - ANEMIA, UNSPECIFIED Status: Acute Qualifiers: Anemia type: due to chronic kidney disease Chronic kidney disease stage: on chronic dialysis Qualified Code(s): N18.6 - End stage renal disease; D63.1 - Anemia in chronic kidney disease; Z99.2 - Dependence on renal dialysis Comment: Likely iron Deficiency and from ESRD, will check iron levels and Stool occult. Will do PRBC at HD. (3) Volume overload Code(s): E87.70 - FLUID OVERLOAD, UNSPECIFIED Status: Acute Qualifiers: Comment: Improving with dialysis. Still has fluid to be removed over time. (4) Anemia of renal disease Code(s): D63.1 - ANEMIA IN CHRONIC KIDNEY DISEASE Status: Chronic Comment: stable (5) Atrial fibrillation Code(s): I48.91 - UNSPECIFIED ATRIAL FIBRILLATION Status: Chronic Qualifiers: Atrial fibrillation type: paroxysmal Qualified Code(s): I48.0 - Paroxysmal atrial fibrillation (6) CAD (coronary artery disease) Code(s): I25.10 - ATHSCL HEART DISEASE OF [place] CORONARY ARTERY W/O ANG PCTRS Status: Chronic Qualifiers: Coronary Disease-Associated Artery/Lesion type: [place] artery [place] vs. transplanted heart: [place] heart Associated angina: without angina Qualified Code(s): I25.10 - Atherosclerotic heart disease of [place] coronary artery without angina pectoris Comment: stable (7) Morbid obesity due to excess calories Code(s): E66.01 - MORBID (SEVERE) OBESITY DUE TO EXCESS CALORIES Status: Chronic (8) Obesity hypoventilation syndrome Code(s): E66.2 - MORBID (SEVERE) OBESITY WITH ALVEOLAR HYPOVENTILATION Status : Chronic Comment: CPAP at night. (9) Paroxysmal a-fib Code(s): I48.0 - PAROXYSMAL ATRIAL FIBRILLATION Status: Chronic Comment: on Eliquis - Plan HD today, discuss with Renal -: restart home meds -: cont home O2 * .
[2018-10-30] MEDS ORDERED: Sevelamer Carbonate 800 MG TAB PO SCH (12:00)
[2018-10-30] MEDS: Gabapentin 100 MG CAP PO SCH ×2 (15:01→20:24)
[2018-10-30] MEDS: Sevelamer Carbonate 800 MG TAB PO SCH (17:01)
[2018-10-30] MEDS ORDERED: Atorvastatin Calcium 20 MG TAB PO SCH (21:00)
[2018-10-31 03:11] VITALS: BMI 56.7
[2018-10-31] MEDS ORDERED: Levothyroxine Sodium 88 MCG TAB PO SCH (06:00)
--- NOTE | 2018-10-31 06:05 | PRG ---
DATE OF SERVICE: 10/30/2018 SUBJECTIVE: Patient was seen and examined at bedside and overnight events noted. Patient denies any shortness of breath or chest pain or palpitation. No history of nausea or vomiting or diarrhea or fever or chills or cramps. OBJECTIVE: GENERAL: This is a morbidly obese male, in no apparent distress. VITAL SIGNS: Temperature 98, pulse 72, respiratory rate 19, blood pressure 106/61. HEENT: Atraumatic, normocephalic. Oral mucosa is moist NECK: Supple. CARDIOVASCULAR: S1, S2 heard. Rate and rhythm regular. RESPIRATORY: Clear to auscultation. GASTROINTESTINAL: Abdomen is soft. MUSCULOSKELETAL: No tenderness. No edema. DERMATOLOGIC: No skin rash. NEUROLOGIC: Alert and awake and oriented X3. No focal neurologic deficits. Moving all the extremities. PSYCHIATRIC: Mood and affect normal. LABORATORY DATA: Not done today. ASSESSMENT: 1. End-stage renal disease, continue dialysis. Plans to have dialysis on Tuesday, Tuesday, and Tuesday. 2. Edema, remove fluids with dialysis. 3. Anemia, stable. 4. Diabetes; monitor. 5. Hypertension, stable. PLAN: Plan is to continue dialysis as tolerated. Job ID: [id number]
[2018-10-31] MEDS ORDERED: Insulin Glargine 5 UNITS in Pre-Filled Syringe 1 EACH SC SCH (09:00)
[2018-10-31] MEDS ORDERED: Apixaban 2.5 MG TAB PO SCH (09:00)
[2018-10-31] MEDS: Sevelamer Carbonate 800 MG TAB PO SCH (09:20)
[2018-10-31 09:21] VITALS: BP 103/51; TEMP 99.2
--- NOTE | 2018-10-31 09:45 | DIS ---
DATE OF ADMISSION: 10/29/2018 DATE OF DISCHARGE: 10/31/2018 PRIMARY CARE PROVIDER: Raoul Watts MD DISPOSITION: [facility] the [facility], [facility]. FINAL DIAGNOSES: Acute on chronic systolic heart failure; coronary artery disease; diabetes mellitus type 2; end-stage renal disease, on hemodialysis; atrial fibrillation; hypertension; and hypothyroidism. DISCHARGE MEDICATIONS: 1. Sevelamer two tabs t.i.d. 2. Neurontin 100 mg t.i.d. 3. Insulin glargine 5 units in the morning. 4. Levothyroxine 88 mcg a day. 5. Metoprolol 12.5 mg a day. 6. Eliquis 2.5 mg twice a day. 7. Lipitor 20 mg a day. 8. Allopurinol ER 4 mg at bedtime. 9. Tramadol 50 mg p.o. q.6 hours p.r.n. 10. Protonix 40 mg a day. 11. Procrit 10,000 units subcu q.7 days. 12. Lorazepam 0.5 mg b.i.d. p.r.n. 13. Zoloft 25 mg a day. 14. Sliding scale NovoLog. ALLERGIES: QUINAPRIL. DIET: Renal with 1000 mL fluid restriction. ACTIVITY: As tolerated. CODE STATUS: Full. HOSPITAL COURSE: The patient was recently discharged from [place] after an episode of acute on chronic heart failure, presents approximately one week later. He states he is having fluid retention. I discussed his fluid intake with him. He states he is trying to do better and discussed on discharge fluid status and he wanted to know how many of his ice water pitchers he could drink a day and I told him his fluid restriction was essentially one of those. He was found on admission to have decompensated heart failure on chest x-ray. He had high BNP. He had posterior rales. He underwent dialysis per Dr. Fonseca. He states today he is back to baseline. I have spent considerable time discussing fluid restriction doing with him. He is being discharged for Tuesday, Tuesday, Tuesday hemodialysis. CONSULTATION: Dr. Fonseca, Renal. PROCEDURE: Hemodialysis. PERTINENT LABORATORY: During his hospital stay; at the time of discharge, his blood sugars were controlled at 150 plus or minus, creatinine and BUN 3.6 and 37. Lytes are balanced. His troponins are 0.03, 0.03, 0.03, consistent with elevated troponins from renal failure. Hemoglobin 8.3. I believe this patient can be better managed as an outpatient at the prison if his fluids restriction is maintained. In discussion with him, he stated he was trying to do better on fluids, but it was obvious that he was not really comprehending what fluid restriction meant. He needs to be followed up by his PCP in one week. Job ID: [id number]
[2018-10-31] MEDS: Gabapentin 100 MG CAP PO SCH (10:27)
--- NOTE | 2018-10-31 17:12 | PRG ---
DATE OF SERVICE: 10/31/2018 SUBJECTIVE: Patient was seen and examined at bedside and overnight events noted. Patient denies any shortness of breath or chest pain or palpitation. No history of nausea or vomiting or diarrhea or fever or chills or cramps. OBJECTIVE: GENERAL: This is a morbidly obese male, in no apparent distress. VITAL SIGNS: Temperature 99.2. Pulse 85. Respiratory rate . Blood pressure 103/51. HEENT: Atraumatic, normocephalic. Oral mucosa is moist NECK: Supple. CARDIOVASCULAR: S1, S2 heard. Rate and rhythm regular. RESPIRATORY: Clear to auscultation. GASTROINTESTINAL: Abdomen is soft. MUSCULOSKELETAL: No tenderness. No edema. DERMATOLOGIC: No skin rash. NEUROLOGIC: Alert and awake and oriented X3. No focal neurologic deficits. Moving all the extremities. PSYCHIATRIC: Mood and affect normal. LABORATORY DATA: Not done today. ASSESSMENT: 1. End-stage renal disease, continue dialysis on Tuesday, Tuesday, and Tuesday. 2. Edema, remove fluids with dialysis. 3. Anemia. 4. Hypertension. 5. Morbid obesity. Continue dialysis as tolerated Tuesday, Tuesday, and Tuesday. Job ID: [id number]
--- NOTE | 2018-11-04 21:59 | EKG ---
Test Reason : Blood Pressure : / mmHG Vent. Rate : 094 BPM Atrial Rate : 102 BPM P-R Int : 000 ms QRS Dur : 102 ms QT Int : 374 ms P-R-T Axes : 000 140 073 degrees QTc Int : 467 ms Atrial fibrillation with premature ventricular or aberrantly conducted complexes Incomplete right bundle branch block Possible Right ventricular hypertrophy Nonspecific ST abnormality , probably digitalis effect Abnormal ECG Confirmed by JACKSON BRO DO ([id number]), senior editor RENÉ ALEXANDER ([id number]) on 11/04/2018 9:58:45 PM Referred By: Confirmed By:JACKSON BRO DO
== END 2018-10-31 12:41 ==
LOC: ERS 11:27 → ERHOLD 15:09 → 2NO 10-31 00:25
PROVIDERS: ADMIT Internal Medicine Infectious Disease; ATTEND Internal Medicine Infectious Disease
DX: I13.2 Hypertensive heart and chronic kidney disease with heart failure and with stage 5 chronic kidney disease, or end stage renal disease (principal); E11.22 Type 2 diabetes mellitus with diabetic chronic kidney disease; N18.6 End stage renal disease; I50.23 Acute on chronic systolic (congestive) heart failure; Z99.2 Dependence on renal dialysis; D63.1 Anemia in chronic kidney disease; I87.8 Other specified disorders of veins; I25.10 Atherosclerotic heart disease of native coronary artery without angina pectoris; I48.0 Paroxysmal atrial fibrillation; I48.2 Chronic atrial fibrillation; E03.9 Hypothyroidism, unspecified; E66.2 Morbid (severe) obesity with alveolar hypoventilation; Z68.43 Body mass index [BMI] 50.0-59.9, adult; M10.9 Gout, unspecified; M19.90 Unspecified osteoarthritis, unspecified site; Z90.49 Acquired absence of other specified parts of digestive tract; Z90.89 Acquired absence of other organs; Z88.8 Allergy status to other drugs, medicaments and biological substances; Z79.01 Long term (current) use of anticoagulants; Z79.4 Long term (current) use of insulin; Z79.899 Other long term (current) drug therapy; Z98.890 Other specified postprocedural states
CPT/HCPCS: 71045; 80053; 82553; 82962 ×2; 83880; 84484 ×2; 85025; 93005; 96374; 99285; G0378 ×4; 36415; 36416; 90935; G0257; J1940

== ENCOUNTER 2018-11-03 21:03 | Emergency (ER) | payer MEDICARE, MEDICAID ==
--- NOTE | 2018-11-03 21:48 | RAD ---
UPRIGHT PORTABLE CHEST ONE VIEW 11/03/18 HISTORY: 58-year-old male with history of vomiting and dyspnea. Cardiomegaly with bilateral vascular congestion and interstitial and alveolar parenchymal changes [place] aterally. There is severe rotation to the left. Appearance appears to be worse when compared to the study. There is progressive parenchymal change. IMPRESSION: Progressive vascular congestion and interstitial edema with bilateral pleural effusions and cardiomeg kenisha, worsening when compared to 10/29/18. Continued short term followup for clearing or stability. POS: [facility]
[2018-11-03 21:56] LABS: #Eosinphils 0.1 thou/uL (0.0-0.7); #Lymphocytes 0.8 thou/uL (1.20-3.40); #Monocytes 0.8 thou/uL (0.11-0.59); #Neutrophils 10.7 thou/uL (1.40-6.50); %Basophils 0.2 % (0.0-1.0); %Lymphocytes 6.7 % (21.0-51.0); %Monocytes 6.5 % (0.0-10.0); %Neutrophils 85.6 % (42.0-75.0); Hemoglobin 8.5 g/dL (14.0-18.0); Mean Corpuscular HGB CONC 30.6 g/dL (32.0-36.0); Mean Corpuscular Hemoglobin 28.2 pg (27.0-31.0); Mean Corpuscular Volume 92.4 fL (78.0-98.0); Mean Platelet Volume 9.2 fL (7.4-10.4); Platelet Count 164 thou/uL (130-400); RBC Distribution Width 14.9 % (11.5-14.5); Red Blood Cell (RBC) Count 3.01 mill/uL (4.70-6.10); White Blood Cell (WBC) Count 12.5 thou/uL (4.8-10.8)
[2018-11-03 22:11] LABS: ALT (SGPT) 8 U/L (8-55); AST (SGOT) 9 U/L (5-34); Albumin 3.1 g/dL (3.5-5.0); Alkaline Phosphatase 118 U/L (40-150); Anion Gap 16 mmol/L (10-20); BUN (Urea Nitrogen) 23 mg/dL (8.4-25.7); Bilirubin, Total 0.7 mg/dL (0.2-1.2); Calc. Creatinine Clearance 0 mL/min (70-130); Calcium 9.3 mg/dL (7.8-10.44); Carbon Dioxide 31 mmol/L (22-29); Chloride 94 mmol/L (98-107); Estimated GFR-MDRD 28; Globulin 4.1 g/dL (2.4-3.5); Glucose 167 mg/dL (70-105); Potassium 3.4 mmol/L (3.5-5.1); Protein, Total 7.2 g/dL (6.0-8.3); Sodium 138 mmol/L (136-145)
[2018-11-04] MEDS ORDERED: Albumin 25% 25 GM/100 ML BOT IVPB SCH (03:15)
[2018-11-04] MEDS ORDERED: Metoclopramide HCl 10 MG/2 ML VIAL ONE (19:13)
[2018-11-04] MEDS ORDERED: Piperacillin/Tazobactam 3.375 GM VIAL ONE (21:59)
[2018-11-04] MEDS ORDERED: Acetaminophen 325 MG TAB ONE (21:59)
--- NOTE | 2018-11-04 23:30 | HP ---
CHIEF COMPLAINT: Nausea and vomiting. HISTORY OF PRESENT ILLNESS: This is a 58-year-old male with past medical history of coronary artery disease, congestive heart failure, myocardial infarction in 2004, atrial fibrillation; diabetes mellitus, on insulin; hypothyroidism, hypertension, osteoarthritis, presenting with shortness of breath, nausea and vomiting, status post dialysis. Per the patient and electronic medical records, the patient was complaining of vomiting while at dialysis on the day of admission. The patient was given Zofran during that time, and the patient was transported by EMS to longterm. When the patient was at longterm, the patient's blood pressure dropped to 97 systolic; therefore, the patient was transported to our hospital to be further evaluated and to be treated. Of note, the patient was recently seen in our hospital and was discharged on the 2018. The patient was here for acute on chronic systolic heart failure. Prior to the last admission, which was 10/29/2018, the patient was here a week prior for the same symptoms of fluid retention. At this point, the patient endorses shortness of breath, nausea, vomiting, but denies any chills, headaches, dizziness, chest pain, palpitations, abdominal pain, dysuria, hematuria, constipation, diarrhea, hematochezia, or melena. REVIEW OF SYSTEMS: Positive for shortness of breath, nausea, vomiting, otherwise as documented in the HPI. All systems have been reviewed and are negative. PAST MEDICAL HISTORY: Coronary artery disease, congestive heart failure, [place] in 02/2005, atrial fibrillation, diabetes mellitus type 2, hypothyroidism, hypertension, osteoarthritis, left hip pain, kidney failure, hypoxia, hyperparathyroidism, UTI, and chronic anemia. FAMILY HISTORY: Reviewed and noncontributory to this specific visit. PAST SURGICAL HISTORY: Appendectomy, tonsillectomy, left leg surgery, shunt in the right arm, fistula placed in the right arm on 11/08. PSYCHIATRIC HISTORY: Anxiety and depression. SOCIAL HISTORY: The patient lives in the long-term facility. The patient denies alcohol use. Denies any drug use and denies any smoking history. ALLERGIES: THE PATIENT IS ALLERGIC TO ACCUPRIL AND QUINAPRIL. CURRENT MEDICATIONS: The patient takes; 1. Procrit 1000 units. 2. Lantus 5 units subcu. 3. NovoLog. 4. Eliquis 2.5 mg daily. 5. Atorvastatin 20 mg. 6. Docusate sodium. 7. Gabapentin 100 mg t.i.d. 8. Levothyroxine 88 mcg daily. 9. Lidocaine patch. 10. Metoprolol succinate 50 mg. 11. Pantoprazole. 12. Polyethylene glycol. PHYSICAL EXAMINATION: VITAL SIGNS: Blood pressure is 143/92, pulse of 110, respiratory rate of 18, temperature is 99.1, and oxygen saturation is 100% on room air. GENERAL: The patient is currently lying in bed, does not appear to be in any acute distress. The patient is able to speak to me in full sentences. HEENT: Normocephalic and atraumatic. Pupils are equally round and reactive to light. Extraocular movements are intact. Mucous membranes are moist. NECK: Trachea is midline. Full range of motion. Mild JVD noted. RESPIRATORY: The patient has bilateral rhonchi that can be appreciated. CARDIAC: Positive S1, S2, tachycardic. ABDOMEN: Soft, nontender, and nondistended. Positive bowel sounds in all quadrants. No peritoneal signs. No rigidity. No guarding. EXTREMITIES: Upper extremity, the patient does have a fistula at the right upper extremity, 5/5 upper extremity strength. Lower extremities; 5/5 lower extremity strength, good pulses bilaterally. NEUROLOGIC: Cranial nerves 2 through 12 grossly intact. No neurologic deficits noted. SKIN: Warm, dry, and intact. The patient is pale. PSYCHIATRIC: Normal affect. IMAGING STUDIES: A 12-lead EKG shows atrial fibrillation with rapid ventricular response of a rate of 113. Chest x-ray shows interstitial edema with bilateral pleural effusion and cardiomegaly worsening when compared to 10/29/2018. LABORATORY DATA: WBC is 13.9, hemoglobin is 8.0, hematocrit 26.2, and platelet is 204. Sodium is 137, potassium is 3.8, chloride is 94, carbon dioxide of 28, anion gap of 19, BUN is 39, creatinine is 3.48, and glucose is 168. Lactic acid is 1.3. Total bilirubin 0.7, AST 64, ALT is 42, and alkaline phosphatase is 161. Troponin 0.450. BNP is 2982.0. ASSESSMENT AND PLAN: This is a 58-year-old male being admitted for; 1. Shortness of breath, likely due to underlying pneumonia. The patient has been started on broad-spectrum antibiotics. We will continue the patient on p.r.n. medications for fever and pain. We will follow up on cultures and sensitivities. We will follow up on morning labs. 2. Bilateral interstitial edema and congestion, most likely due to acute systolic heart failure. At this point, the patient seems to be fluid overloaded. The patient will benefit from possible dialysis. At this point, we have consulted Nephrology. We will follow up with Nephrology regarding further recommendations. 3. Sepsis, secondary to pneumonia. At this point, we will continue the patient on plan #1. 4. Non-ST elevation myocardial infarction, likely due to demand ischemia versus end-stage renal disease. At this point, we will monitor the patient's troponins and we will continue to treat underlying cause. Cardiology has been consulted. We will follow up with their recommendations. 5. Chronic anemia likely due to chronic inflammation/end-stage renal disease on hemodialysis. At this point, the patient takes Epoetin. We will continue the patient on Epo. We will monitor the patient's hemoglobin and hematocrit. 6. Coronary artery disease. We will continue the patient on home medications. 7. History of atrial fibrillation. We will continue the patient on his home medications. 8. Diabetes mellitus type 2. We will continue the patient on insulin sliding scale. I will monitor the patient's blood sugars. 9. Hypothyroidism. We will continue the patient on levothyroxine. 10. Hypertension. We will monitor the patient's blood pressure and we will treat accordingly. 11. Osteoarthritis. We will continue the patient on his home medications. 12. End-stage renal disease, on hemodialysis. We will continue the patient on hemodialysis. We have consulted Nephrology. We will follow up with their recommendations. 13. Chronic venous stasis. We will monitor the patient at this time. 14. Deep venous thrombosis and gastrointestinal prophylaxis addressed. Job ID: [id number]
== END 2018-11-04 07:13 ==
LOC: ERS 21:03
DX: N17.9 Acute kidney failure, unspecified (principal); N18.9 Chronic kidney disease, unspecified; R11.2 Nausea with vomiting, unspecified; I25.10 Atherosclerotic heart disease of native coronary artery without angina pectoris; I50.9 Heart failure, unspecified; I48.91 Unspecified atrial fibrillation; E03.9 Hypothyroidism, unspecified; D50.0 Iron deficiency anemia secondary to blood loss (chronic); E11.9 Type 2 diabetes mellitus without complications; E21.3 Hyperparathyroidism, unspecified; I11.0 Hypertensive heart disease with heart failure; M19.90 Unspecified osteoarthritis, unspecified site; F41.9 Anxiety disorder, unspecified; F32.9 Major depressive disorder, single episode, unspecified; Z79.4 Long term (current) use of insulin; Z79.899 Other long term (current) drug therapy; Z87.01 Personal history of pneumonia (recurrent)
CPT/HCPCS: 36415; 71045; 80053; 83605; 83880; 84484; 85025; 93005; J0131; J2543; J2765; J3370; P9047

== ENCOUNTER 2018-11-04 18:21 | Inpatient (IN) | payer MEDICARE, MEDICAID ==
[2018-11-04] MEDS ORDERED: Ondansetron ODT 4 MG TAB ONE (18:38)
[2018-11-04 19:52] LABS: #Eosinphils 0.1 thou/uL (0.0-0.7); #Lymphocytes 1.4 thou/uL (1.20-3.40); #Monocytes 1.1 thou/uL (0.11-0.59); #Neutrophils 11.4 thou/uL (1.40-6.50); %Basophils 0.1 % (0.0-1.0); %Eosinophils 0.5 % (0.0-10.0); %Lymphocytes 9.8 % (21.0-51.0); %Monocytes 7.6 % (0.0-10.0); %Neutrophils 81.9 % (42.0-75.0); Mean Corpuscular HGB CONC 30.6 g/dL (32.0-36.0); Mean Corpuscular Hemoglobin 28.4 pg (27.0-31.0); Mean Corpuscular Volume 92.7 fL (78.0-98.0); Mean Platelet Volume 8.9 fL (7.4-10.4); Platelet Count 204 thou/uL (130-400); Red Blood Cell (RBC) Count 2.83 mill/uL (4.70-6.10); White Blood Cell (WBC) Count 13.9 thou/uL (4.8-10.8)
[2018-11-04 20:15] LABS: ALT (SGPT) 42 U/L (8-55); AST (SGOT) 64 U/L (5-34); Albumin 3.4 g/dL (3.5-5.0); Alkaline Phosphatase 161 U/L (40-150); Anion Gap 19 mmol/L (10-20); BUN (Urea Nitrogen) 39 mg/dL (8.4-25.7); Bilirubin, Total 0.7 mg/dL (0.2-1.2); Calc. Creatinine Clearance 0 mL/min (70-130); Calcium 9.5 mg/dL (7.8-10.44); Carbon Dioxide 28 mmol/L (22-29); Chloride 94 mmol/L (98-107); Estimated GFR-MDRD 18; Globulin 3.6 g/dL (2.4-3.5); Glucose 168 mg/dL (70-105); Potassium 3.8 mmol/L (3.5-5.1); Sodium 137 mmol/L (136-145)
--- NOTE | 2018-11-04 20:55 | RAD ---
CHEST ONE VIEW: 11/04/18 HISTORY: Fever. COMPARISON: 11/03/18. Poor inspiration. Marked cardiomegaly with bilateral vascular congestion and bilateral interstitial a nd alveolar opacity changes which have become more dense and more confluent bilaterally with bilatera l pleural effusions. Overall appearance is more consistent with that of worsening congestive heart fa ilure and pulmonary edema, although given the presence of fever, underlying pneumonia certainly canno t be excluded. IMPRESSION: Worsening bilateral vascular congestion and abnormal opacities bilaterally and pleural effusions and cardiomegaly which would be more consistent with that of worsening pulmonary edema and congestive hea rt failure, given fever. The possibility of underlying infection certainly cannot be excluded. POS: [facility]
[2018-11-04 21:13] LABS: CKMB 2.8 ng/mL (0-6.6)
[2018-11-04] MEDS ORDERED: Dextrose 5% in Water 1,000 ML IV PRN (22:26)
[2018-11-04] MEDS ORDERED: Acetaminophen 325 MG TAB PO PRN (22:26)
[2018-11-04] MEDS ORDERED: HumaLOG 300 UNITS/3 ML VIAL SC PRN (22:26)
[2018-11-04] MEDS ORDERED: Bisacodyl 10 MG SUPP PR PRN (22:26)
[2018-11-04] MEDS ORDERED: Senokot S 8.6-50 MG TAB PO PRN (22:26)
[2018-11-04] MEDS ORDERED: Dextrose 50% Abboject 50 ML SYRINGE SLOW IVP PRN (22:26)
[2018-11-04] MEDS ORDERED: Zolpidem Tartrate 5 MG TAB PO PRN (22:26)
[2018-11-04] MEDS ORDERED: Bisacodyl 5 MG TAB PO PRN (22:26)
[2018-11-04] MEDS ORDERED: Nystatin Powder 15 GM BOT TOP PRN (22:31)
[2018-11-04] MEDS ORDERED: Polyethylene Glycol 3350 17 GM Packet PO PRN (22:31)
[2018-11-04] MEDS ORDERED: Lorazepam 0.5 MG TAB PO PRN (22:31)
[2018-11-04] MEDS ORDERED: HOLD VANCOMYCIN FOR LEVEL >20 FS SCH (23:15)
--- NOTE | 2018-11-04 23:30 | HP ---
CHIEF COMPLAINT: Nausea and vomiting. HISTORY OF PRESENT ILLNESS: This is a 58-year-old male with past medical history of coronary artery disease, congestive heart failure, myocardial infarction in 2004, atrial fibrillation; diabetes mellitus, on insulin; hypothyroidism, hypertension, osteoarthritis, presenting with shortness of breath, nausea and vomiting, status post dialysis. Per the patient and electronic medical records, the patient was complaining of vomiting while at dialysis on the day of admission. The patient was given Zofran during that time, and the patient was transported by EMS to alf. When the patient was at alf, the patient's blood pressure dropped to 97 systolic; therefore, the patient was transported to our hospital to be further evaluated and to be treated. Of note, the patient was recently seen in our hospital and was discharged on the 2018. The patient was here for acute on chronic systolic heart failure. Prior to the last admission, which was 10/29/2018, the patient was here a week prior for the same symptoms of fluid retention. At this point, the patient endorses shortness of breath, nausea, vomiting, but denies any chills, headaches, dizziness, chest pain, palpitations, abdominal pain, dysuria, hematuria, constipation, diarrhea, hematochezia, or melena. REVIEW OF SYSTEMS: Positive for shortness of breath, nausea, vomiting, otherwise as documented in the HPI. All systems have been reviewed and are negative. PAST MEDICAL HISTORY: Coronary artery disease, congestive heart failure, [place] in 02/2005, atrial fibrillation, diabetes mellitus type 2, hypothyroidism, hypertension, osteoarthritis, left hip pain, kidney failure, hypoxia, hyperparathyroidism, UTI, and chronic anemia. FAMILY HISTORY: Reviewed and noncontributory to this specific visit. PAST SURGICAL HISTORY: Appendectomy, tonsillectomy, left leg surgery, shunt in the right arm, fistula placed in the right arm on 11/08. PSYCHIATRIC HISTORY: Anxiety and depression. SOCIAL HISTORY: The patient lives in the long-term facility. The patient denies alcohol use. Denies any drug use and denies any smoking history. ALLERGIES: THE PATIENT IS ALLERGIC TO ACCUPRIL AND QUINAPRIL. CURRENT MEDICATIONS: The patient takes; 1. Procrit 1000 units. 2. Lantus 5 units subcu. 3. NovoLog. 4. Eliquis 2.5 mg daily. 5. Atorvastatin 20 mg. 6. Docusate sodium. 7. Gabapentin 100 mg t.i.d. 8. Levothyroxine 88 mcg daily. 9. Lidocaine patch. 10. Metoprolol succinate 50 mg. 11. Pantoprazole. 12. Polyethylene glycol. PHYSICAL EXAMINATION: VITAL SIGNS: Blood pressure is 143/92, pulse of 110, respiratory rate of 18, temperature is 99.1, and oxygen saturation is 100% on room air. GENERAL: The patient is currently lying in bed, does not appear to be in any acute distress. The patient is able to speak to me in full sentences. HEENT: Normocephalic and atraumatic. Pupils are equally round and reactive to light. Extraocular movements are intact. Mucous membranes are moist. NECK: Trachea is midline. Full range of motion. Mild JVD noted. RESPIRATORY: The patient has bilateral rhonchi that can be appreciated. CARDIAC: Positive S1, S2, tachycardic. ABDOMEN: Soft, nontender, and nondistended. Positive bowel sounds in all quadrants. No peritoneal signs. No rigidity. No guarding. EXTREMITIES: Upper extremity, the patient does have a fistula at the right upper extremity, 5/5 upper extremity strength. Lower extremities; 5/5 lower extremity strength, good pulses bilaterally. NEUROLOGIC: Cranial nerves 2 through 12 grossly intact. No neurologic deficits noted. SKIN: Warm, dry, and intact. The patient is pale. PSYCHIATRIC: Normal affect. IMAGING STUDIES: A 12-lead EKG shows atrial fibrillation with rapid ventricular response of a rate of 113. Chest x-ray shows interstitial edema with bilateral pleural effusion and cardiomegaly worsening when compared to 10/29/2018. LABORATORY DATA: WBC is 13.9, hemoglobin is 8.0, hematocrit 26.2, and platelet is 204. Sodium is 137, potassium is 3.8, chloride is 94, carbon dioxide of 28, anion gap of 19, BUN is 39, creatinine is 3.48, and glucose is 168. Lactic acid is 1.3. Total bilirubin 0.7, AST 64, ALT is 42, and alkaline phosphatase is 161. Troponin 0.450. BNP is 2982.0. ASSESSMENT AND PLAN: This is a 58-year-old male being admitted for; 1. Shortness of breath, likely due to underlying pneumonia. The patient has been started on broad-spectrum antibiotics. We will continue the patient on p.r.n. medications for fever and pain. We will follow up on cultures and sensitivities. We will follow up on morning labs. 2. Bilateral interstitial edema and congestion, most likely due to acute systolic heart failure. At this point, the patient seems to be fluid overloaded. The patient will benefit from possible dialysis. At this point, we have consulted Nephrology. We will follow up with Nephrology regarding further recommendations. 3. Sepsis, secondary to pneumonia. At this point, we will continue the patient on plan #1. 4. Non-ST elevation myocardial infarction, likely due to demand ischemia versus end-stage renal disease. At this point, we will monitor the patient's troponins and we will continue to treat underlying cause. Cardiology has been consulted. We will follow up with their recommendations. 5. Chronic anemia likely due to chronic inflammation/end-stage renal disease on hemodialysis. At this point, the patient takes Epoetin. We will continue the patient on Epo. We will monitor the patient's hemoglobin and hematocrit. 6. Coronary artery disease. We will continue the patient on home medications. 7. History of atrial fibrillation. We will continue the patient on his home medications. 8. Diabetes mellitus type 2. We will continue the patient on insulin sliding scale. I will monitor the patient's blood sugars. 9. Hypothyroidism. We will continue the patient on levothyroxine. 10. Hypertension. We will monitor the patient's blood pressure and we will treat accordingly. 11. Osteoarthritis. We will continue the patient on his home medications. 12. End-stage renal disease, on hemodialysis. We will continue the patient on hemodialysis. We have consulted Nephrology. We will follow up with their recommendations. 13. Chronic venous stasis. We will monitor the patient at this time. 14. Deep venous thrombosis and gastrointestinal prophylaxis addressed. Job ID: [id number]
[2018-11-05 00:10] LABS: Troponin I 0.814 ng/mL (< 0.028)
[2018-11-05] MEDS ORDERED: Furosemide 40 MG/4 ML VIAL ONE (02:08)
[2018-11-05 02:10] LABS: Band 7 % (5-11); Eosinophils 1 % (0-10); Hemoglobin 8.3 g/dL (14.0-18.0); Lymphocytes 9 % (21-51); MDiff Complete? YES; Mean Corpuscular HGB CONC 31.1 g/dL (32.0-36.0); Mean Corpuscular Volume 93.1 fL (78.0-98.0); Monocytes 9 % (0-10); Neutrophil 74 % (42-75); Platelet Count 224 thou/uL (130-400); Platelet Morphology Comment Appears Adequate; RBC Distribution Width 15.1 % (11.5-14.5); Red Blood Cell (RBC) Count 2.87 mill/uL (4.70-6.10); White Blood Cell (WBC) Count 15.2 thou/uL (4.8-10.8)
[2018-11-05 02:15] LABS: ALT (SGPT) 41 U/L (8-55); AST (SGOT) 49 U/L (5-34); Albumin 3.3 g/dL (3.5-5.0); Alkaline Phosphatase 157 U/L (40-150); Anion Gap 17 mmol/L (10-20); BUN (Urea Nitrogen) 41 mg/dL (8.4-25.7); Bilirubin, Total 0.7 mg/dL (0.2-1.2); Calc. Creatinine Clearance 0 mL/min (70-130); Calcium 9.5 mg/dL (7.8-10.44); Carbon Dioxide 31 mmol/L (22-29); Chloride 94 mmol/L (98-107); Estimated GFR-MDRD 17; Globulin 3.7 g/dL (2.4-3.5); Glucose 170 mg/dL (70-105); Magnesium 2.3 mg/dL (1.6-2.6); Potassium 3.7 mmol/L (3.5-5.1); Sodium 138 mmol/L (136-145)
[2018-11-05] MEDS: Levothyroxine Sodium 88 MCG TAB PO SCH (06:14)
[2018-11-05] MEDS ORDERED: Lidocaine 1% (PF) 30 ML VIAL ONE (07:43)
--- NOTE | 2018-11-05 08:21 | OP ---
DATE OF PROCEDURE: 11/05/2018 PREOPERATIVE DIAGNOSIS: Septic shock. POSTOPERATIVE DIAGNOSIS: Septic shock. PROCEDURES PERFORMED: Right femoral central line placement, right groin triple-lumen catheter. ANESTHESIA: Local. COMPLICATIONS: No complications. DESCRIPTION OF PROCEDURE: The right groin was shaved, prepped and draped in a sterile fashion. Local anesthetic was infiltrated over the right femoral vein. Femoral vein was cannulated using the Seldinger needle. Wire was passed under no tension. Small maximino was made at the wire entrance site. The dilator was used to dilate the femoral vein. Triple-lumen catheter was threaded to its fullest extent. All ports flushed and james blood without difficulty and flushed with a saline solution. The central line sewn to . Sterile dressings were placed. The patient tolerated the procedure well. Job ID: [id number]
[2018-11-05] MEDS: Apixaban 2.5 MG TAB PO SCH (08:35)
[2018-11-05] MEDS: Sevelamer Carbonate 800 MG TAB PO SCH ×3 (08:35→17:46)
[2018-11-05] MEDS: Famotidine 20 MG TAB PO SCH (08:36)
[2018-11-05] MEDS: Docusate 100 MG CAP PO SCH (08:36)
[2018-11-05] MEDS: Gabapentin 100 MG CAP PO SCH ×3 (08:36→21:04)
[2018-11-05] MEDS ORDERED: Vancomycin HCl 750 MG in Sodium Chloride 0.9% 250 ML 250 ML IVPB SCH (09:00)
[2018-11-05] MEDS ORDERED: Vancomycin HCl 1.5 GM in Sodium Chloride 0.9% 250 ML 300 ML IVPB SCH (09:00)
[2018-11-05] MEDS ORDERED: Vancomycin HCl 1 GM in Premix Bag 1 BAG IVPB SCH (09:00)
[2018-11-05] MEDS ORDERED: Epoetin (ESRD) 10,000 UNITS/ML VIAL SC SCH (09:00)
[2018-11-05] MEDS ORDERED: Vancomycin HCl 1.25 GM in Sodium Chloride 0.9% 250 ML 250 ML IVPB SCH (09:00)
[2018-11-05] MEDS ORDERED: Epoetin (ESRD) 20,000 UNITS/ML SC SCH (09:00)
--- NOTE | 2018-11-05 09:13 | PDOC.PN ---
- Subjective Encounter Start Date: 11/05/18 Encounter Start Time: 09:11 Subjective: Seen and not doing good--hypotensive and somnolent - Objective Resuscitation Status - Order Detail: 11/04/18 22:26 Resuscitation Status Routine Resuscitation Status: FULL: Full Resuscitation Vital Signs & Weight: Vital Signs (12 hours) Temp Pulse Resp BP Pulse Ox 11/05/18 08:00 98 11/05/18 07:27 98.8 F 116 H 20 127/80 98 11/05/18 04:35 98.9 F 125 H 24 H 99/75 97 11/05/18 03:45 95 11/05/18 03:24 99 F 110 H 18 141/99 H 95 Weight Weight 359 lb 5.655 oz Result Diagrams: 11/05/18 01:41 11/05/18 01:41 Additional Labs: Accuchecks 11/05/18 11/05/18 05:50 03:32 POC Glucose 161 H 159 H Phys Exam - Physical Examination very sick Neck: no nodes, no JVD rales ++ Cardiovascular: RRR, no significant murmur, no rub Gastrointestinal: soft, non-tender obese abdomen Musculoskeletal: pulses present Neurological: non-focal Dx/Plan (1) Sepsis associated hypotension Code(s): A41.9 - SEPSIS, UNSPECIFIED ORGANISM; I95.9 - HYPOTENSION, UNSPECIFIED Status: Acute (2) CHF, acute on chronic Code(s): I50.9 - HEART FAILURE, UNSPECIFIED Status: Acute (3) Volume overload Code(s): E87.70 - FLUID OVERLOAD, UNSPECIFIED Status: Acute Qualifiers: Comment: Improving with dialysis. Still has fluid to be removed over time. (4) Atrial fibrillation Code(s): I48.91 - UNSPECIFIED ATRIAL FIBRILLATION Status: Chronic Qualifiers: (5) DM2 (diabetes mellitus, type 2) Status: Chronic Qualifiers: Comment: controlled (6) ESRD (end stage renal disease) on dialysis Code(s): N18.6 - END STAGE RENAL DISEASE; Z99.2 - DEPENDENCE ON RENAL DIALYSIS Status: Chronic Comment: dialysis per nephrology service - Plan continue antibiotics, respiratory therapy Transfer to ICU -: Nephrology consult -: Pulmonary consult in place--patient is full code * .
[2018-11-05] MEDS: Piperacillin/Tazobactam 2.25 GM in Sodium Chloride 0.9% 100 ML IVPB SCH ×2 (09:14→21:07)
[2018-11-05] MEDS: Famotidine/PF 20 mg/2ml Vial SLOW IVP SCH (09:15)
[2018-11-05] MEDS: Norepinephrine 8 MG/0.9% NS 250 ML IVPB SCH (10:00)
[2018-11-05 10:35] LABS: Vancomycin, Random 9.9 ug/mL (See Comment)
[2018-11-05] MEDS ORDERED: Heparin 1,000 UNITS/ML VIAL ONE (11:11)
--- NOTE | 2018-11-05 11:43 | CON ---
DATE OF CONSULTATION: HISTORY OF PRESENT ILLNESS: Edmundo Lyons is a 58-year-old morbidly obese gentleman from the assisted, 163 kg, presented with vomiting. He just left the hospital yesterday and was dialyzed. His saturations on 4 liters were 96%, temperature . This morning, he was lethargic and hypotensive. Saturations were 85% to 86%. He was transferred to the ICU and Nephrology is going to do an emergency dialysis on him. He is awake, but clearly he is lethargic. His x-ray shows cardiomegaly with what appears to be bilateral pleural effusion. He is denying any chest pain, chills, or sweats. He was dialyzed late last night in the hospital and discharged back to the assisted. PAST MEDICAL HISTORY: Morbid obesity, previous respiratory failure, cardiac arrhythmias, atrial fibrillation, hypothyroidism, hypertension, diabetes, recurrent UTIs, and severe deconditioning. PAST SURGICAL HISTORY: Appendix, tonsils, and left leg access. SOCIAL HISTORY: He is in a nursing facility. Denies any alcohol, drug abuse, or tobacco abuse. MEDICATIONS: From the assisted includes, 1. Eliquis 2.5. 2. Lipitor 20. 3. Gabapentin 100 three times a day. 4. Insulin. 5. Synthroid 88. 6. Metoprolol 12.5. 7. Protonix 40. 8. Zoloft 25. 9. He is now started on vancomycin and Levophed. ALLERGIES: ACCUPRIL. REVIEW OF SYSTEMS: Difficult to obtain. PHYSICAL EXAMINATION: GENERAL: He is lethargic and arousable. VITAL SIGNS: Pulse 110, saturations 85%, respirations 20, and blood pressure 130/80. CHEST: Extensive rhonchi and crackles. CARDIAC: Sinus tach. ABDOMEN: Massive. NEUROLOGIC: He is awake and moves all four extremities. LABORATORY DATA: Creatinine is 3.63. Troponin is elevated. White count 15,000, H 26, and platelet count 24. IMPRESSION: 1. Acute on chronic respiratory failure. 2. Renal failure with congestive heart failure. 3. Sleep apnea. PLAN: We will try to place him on a noninvasive ventilation. Neb treatment initiated. Notify Dr. Juárez in the morning. This is a 45-minute critical time. Job ID: [id number]
[2018-11-05] MEDS: Insulin Glargine 5 UNITS in Pre-Filled Syringe 1 EACH SC SCH (12:03)
[2018-11-05] MEDS: Lidocaine 5% Patch TD SCH (12:03)
--- NOTE | 2018-11-05 19:51 | CON ---
DATE OF CONSULTATION: 11/05/2018 CONSULTING PHYSICIAN: REASON FOR CONSULTATION: Shortness of breath. REASON FOR ADMISSION: Shortness of breath. HISTORY OF PRESENT ILLNESS: This is a 58-year-old male with history of end- stage renal disease on hemodialysis, CHF, atrial fibrillation, diabetes, and noncompliance, came to the hospital with shortness of breath, found to have fluid overload. Nephrology was consulted for maintenance hemodialysis. The patient was also found to have hypotension and currently in ICU and on pressors. He was having vomiting earlier. He was not able to give a good history. He is very somnolent. PAST MEDICAL HISTORY: Positive for coronary artery disease, CHF, atrial fibrillation, type 2 diabetes, hypothyroidism, hypertension, and end-stage renal disease. PAST SURGICAL HISTORY: Appendectomy, tonsillectomy, left leg surgery, and right AV shunt placement. HOME MEDICATIONS: 1. Eliquis. 2. Lantus. 3. Levothyroxine. 4. Lidoderm. 5. Lorazepam. 6. Metoprolol. 7. MiraLAX. 8. Protonix. 9. Ropinirole. 10. Zoloft. 11. Sevelamer. 12. Ultram. 13. Lipitor. 14. Procrit. 15. Gabapentin. ALLERGIES: QUINAPRIL AND ACCUPRIL. SOCIAL HISTORY: No smoking, alcohol, or illicit drugs. FAMILY HISTORY: Positive for diabetes. REVIEW OF SYSTEMS: Cannot be obtained as the patient is very somnolent and not able to participate. PHYSICAL EXAMINATION: GENERAL: He is morbidly obese male, in [id number] distress. VITAL SIGNS: Temperature 99.4, pulse 119, respirations 20, blood pressure 90/62 HEENT: Atraumatic and normocephalic. Oral mucosa is moist. NECK: Supple. CVS: S1 and S2 heard. Tachycardia. RESPIRATORY: Clear. GASTROINTESTINAL: Abdomen is obese. MUSCULOSKELETAL: 1+ edema. DERMATOLOGIC: No skin rash. NEUROLOGIC: Somnolent. DIAGNOSTIC DATA: Chest shows crackles bilaterally. LABORATORY DATA: Hemoglobin 8.3. Potassium 3.7, BUN is 41, creatinine is 3.6. ASSESSMENT AND PLAN: 1. End-stage renal disease. Continue on hemodialysis. We will have emergent dialysis, fluid overload. 2. Fluid overload with hypotension. Attempt to remove fluid as tolerated. 3. Hypotension. 4. Edema. 5. Anemia. Plan is to have dialysis with albumin and pressors. Remove fluid. Dialysis as tolerated. Monitor labs. The patient is at high risk for complications. We will follow. Thank you for the consult. Job ID: [id number] [id number]
[2018-11-05] MEDS ORDERED: Ondansetron ODT 4 MG TAB SL PRN (20:34)
[2018-11-05] MEDS ORDERED: Ondansetron PF 4 MG/2 ML Vial IVP PRN (20:34)
[2018-11-05] MEDS: Atorvastatin Calcium 20 MG TAB PO SCH (21:04)
[2018-11-05] MEDS: Lidocaine Patch Removal 1 EACH TOP SCH (21:04)
[2018-11-05] MEDS: rOPINIRole HCl 2 MG TAB PO SCH (21:04)
[2018-11-06] MEDS: Levothyroxine Sodium 88 MCG TAB PO SCH (06:27)
--- NOTE | 2018-11-06 08:18 | PRG ---
DATE OF SERVICE: 11/06/2018 SUBJECTIVE: He wakes up, does not appear to be in any distress. He continues to rest on BiPAP. OBJECTIVE: VITAL SIGNS: On exam, his temperature is 98.6, pulse 109, blood pressure 109/77, he is currently on a Levophed drip at 2.5 mcg/minute. HEENT: Wearing CPAP mask. Oropharynx looks clear. NECK: No JVD. LUNGS: Clear anteriorly. CARDIAC: S1 and S2. Regular. ABDOMEN: Obese, soft. EXTREMITIES: No edema. LABORATORY DATA: No new labs were done today. ASSESSMENT: 1. Transient hypotension related to either sepsis or volume depletion. 2. End-stage renal disease, requiring hemodialysis. 3. Obstructive sleep apnea. 4. History of congestive heart failure. PLAN: 1. The patient will be weaned off BiPAP as tolerated. 2. Start diet. 3. Continue dialysis. 4. Wean Levophed as tolerated. 5. Follow up cultures. 6. Check labs tomorrow. Job ID: [id number]
[2018-11-06] MEDS: Famotidine 20 MG TAB PO SCH (09:48)
[2018-11-06] MEDS: Sevelamer Carbonate 800 MG TAB PO SCH ×3 (09:48→17:09)
[2018-11-06] MEDS: Gabapentin 100 MG CAP PO SCH ×3 (09:49→20:29)
[2018-11-06] MEDS: Famotidine/PF 20 mg/2ml Vial SLOW IVP SCH (09:49)
[2018-11-06] MEDS: Docusate 100 MG CAP PO SCH (09:49)
[2018-11-06] MEDS: Lidocaine 5% Patch TD SCH (09:50)
[2018-11-06] MEDS: Apixaban 2.5 MG TAB PO SCH (09:50)
[2018-11-06] MEDS: Insulin Glargine 5 UNITS in Pre-Filled Syringe 1 EACH SC SCH (09:51)
[2018-11-06] MEDS: Piperacillin/Tazobactam 2.25 GM in Sodium Chloride 0.9% 100 ML IVPB SCH ×2 (09:51→20:30)
[2018-11-06 10:37] LABS: Hemoglobin 8.1 g/dL (14.0-18.0); Mean Corpuscular HGB CONC 29.6 g/dL (32.0-36.0); Mean Corpuscular Hemoglobin 27.3 pg (27.0-31.0); Mean Corpuscular Volume 92.2 fL (78.0-98.0); Mean Platelet Volume 8.3 fL (7.4-10.4); Platelet Count 219 thou/uL (130-400); RBC Distribution Width 14.9 % (11.5-14.5); Red Blood Cell (RBC) Count 2.94 mill/uL (4.70-6.10); White Blood Cell (WBC) Count 11.9 thou/uL (4.8-10.8)
--- NOTE | 2018-11-06 10:47 | PRG ---
DATE OF SERVICE: 11/06/2018 SUBJECTIVE: A 58-year-old gentleman being seen for end-stage renal disease. The patient denies any nausea or vomiting. OBJECTIVE: GENERAL: The patient is resting. VITAL SIGNS: Pulse 122, breathing 16, and blood pressure 109/75. GENERAL APPEARANCE AND MENTAL STATUS: Fair. HEAD/NECK: Normocephalic. Atraumatic. EYES: EOMI. No deformity. EARS: Clear. No ulcers. NOSE: Intact. No lesions. MOUTH: Clear. No discharge. THROAT: Clear. No exudate. LUNGS: Clear. No crackles. CARDIAC: S1, S2. No rub. ABDOMEN: Benign. Bowel sounds positive. GENITALIA/RECTUM: Quezada absent. BACK/EXTREMITIES: Edema 0+. NEUROLOGICAL: Alert and motor intact. SKIN: LYMPHATICS: LABORATORY DATA: Reviewed. Hemoglobin 8.3. ASSESSMENT AND PLAN: 1. Stage 6 chronic kidney disease with hypotension and tachycardia. The patient probably is septic and probably has uncontrolled atrial fibrillation and remains on pressors. No urgent indication for dialysis. 2. Anemia, stable. 3. Medication based on GFR appropriate. Overall prognosis is very poor. Noncompliance is a major issue. Job ID: [id number]
[2018-11-06 10:51] LABS: Anion Gap 20 mmol/L (10-20); BUN (Urea Nitrogen) 56 mg/dL (8.4-25.7); Calc. Creatinine Clearance 40 mL/min (70-130); Calcium 9.6 mg/dL (7.8-10.44); Carbon Dioxide 28 mmol/L (22-29); Chloride 95 mmol/L (98-107); Estimated GFR-MDRD 13; Glucose 126 mg/dL (70-105); Potassium 3.9 mmol/L (3.5-5.1); Sodium 139 mmol/L (136-145)
[2018-11-06 10:54] LABS: #Basophils 0.1 thou/uL (0.0-0.2); #Eosinphils 0.2 thou/uL (0.0-0.7); #Lymphocytes 1.3 thou/uL (1.20-3.40); #Monocytes 0.8 thou/uL (0.11-0.59); #Neutrophils 9.7 thou/uL (1.40-6.50); %Basophils 0.5 % (0.0-1.0); %Eosinophils 1.4 % (0.0-10.0); %Lymphocytes 10.8 % (21.0-51.0); %Monocytes 6.3 % (0.0-10.0); %Neutrophils 81.1 % (42.0-75.0); Anisocytosis SLIGHT = 6-15 cells (100X) (0-5/hpf); Hypochromia SLIGHT = 6-15 cells (100X) (0-5/hpf); MDiff Complete? YES; Platelet Morphology Comment Appears Adequate
--- NOTE | 2018-11-06 15:32 | PDOC.PN ---
- Subjective Encounter Start Date: 11/06/18 Encounter Start Time: 15:31 - Objective Resuscitation Status - Order Detail: 11/04/18 22:26 Resuscitation Status Routine Resuscitation Status: FULL: Full Resuscitation Vital Signs & Weight: Vital Signs (12 hours) Temp Pulse Resp Pulse Ox 11/06/18 13:27 107 H 22 H 93 L 11/06/18 08:20 122 H 21 H 91 L 11/06/18 08:00 98.5 F 11/06/18 05:00 98.6 F Weight Weight 359 lb 5.655 oz Most Recent Monitor Data Heart Rate from ECG 114 NIBP 99/73 NIBP BP-Mean 81 Respiration from ECG 18 SpO2 97 I&O: 11/05/18 11/06/18 11/07/18 06:59 06:59 06:59 Intake Total 194.5 430 Output Total 0 0 Balance 194.5 430 Result Diagrams: 11/06/18 10:18 11/06/18 10:18 Additional Labs: Accuchecks 11/06/18 11/06/18 11/06/18 12:00 10:03 05:14 POC Glucose 146 H 116 H 148 H 11/05/18 11/05/18 21:18 15:38 POC Glucose 137 H 147 H Phys Exam - Physical Examination Constitutional: NAD HEENT: PERRLA, moist MMs, sclera anicteric, TM's clear Neck: no nodes, no JVD, supple, full ROM Respiratory: no wheezing, no rales, no rhonchi, clear to auscultation bilateral Cardiovascular: RRR, no significant murmur Gastrointestinal: soft, non-tender, positive bowel sounds Musculoskeletal: no edema, pulses present Neurological: non-focal, normal sensation Lymphatic: no nodes Dx/Plan (1) Sepsis associated hypotension Code(s): A41.9 - SEPSIS, UNSPECIFIED ORGANISM; I95.9 - HYPOTENSION, UNSPECIFIED Status: Acute (2) CHF, acute on chronic Code(s): I50.9 - HEART FAILURE, UNSPECIFIED Status: Acute (3) Volume overload Code(s): E87.70 - FLUID OVERLOAD, UNSPECIFIED Status: Acute Qualifiers: Comment: Improving with dialysis. Still has fluid to be removed over time. (4) Atrial fibrillation Code(s): I48.91 - UNSPECIFIED ATRIAL FIBRILLATION Status: Chronic Qualifiers: (5) DM2 (diabetes mellitus, type 2) Status: Chronic Qualifiers: Comment: controlled (6) ESRD (end stage renal disease) on dialysis Code(s): N18.6 - END STAGE RENAL DISEASE; Z99.2 - DEPENDENCE ON RENAL DIALYSIS Status: Chronic Comment: dialysis per nephrology service - Plan continue antibiotics, PT/OT, social worker psychiatric, respiratory therapy Consider initiating midodrine and wean off the pressors -: Dialysis per renal team * .
[2018-11-06] MEDS: HumaLOG 300 UNITS/3 ML VIAL SC PRN (17:53)
[2018-11-06] MEDS: rOPINIRole HCl 2 MG TAB PO SCH (20:29)
[2018-11-06] MEDS: Atorvastatin Calcium 20 MG TAB PO SCH (20:29)
[2018-11-06] MEDS: traMADol HCl 50 MG TAB PO PRN (20:30)
[2018-11-06] MEDS: Lidocaine Patch Removal 1 EACH TOP SCH (21:13)
[2018-11-07] MEDS: Norepinephrine 8 MG/0.9% NS 250 ML IVPB SCH (00:32)
[2018-11-07 04:55] LABS: #Basophils 0.1 thou/uL (0.0-0.2); #Eosinphils 0.4 thou/uL (0.0-0.7); #Lymphocytes 1.2 thou/uL (1.20-3.40); #Monocytes 0.8 thou/uL (0.11-0.59); #Neutrophils 7.8 thou/uL (1.40-6.50); %Basophils 0.7 % (0.0-1.0); %Eosinophils 3.5 % (0.0-10.0); %Lymphocytes 11.8 % (21.0-51.0); %Monocytes 7.4 % (0.0-10.0); %Neutrophils 76.6 % (42.0-75.0); Hemoglobin 7.6 g/dL (14.0-18.0); Mean Corpuscular HGB CONC 31.1 g/dL (32.0-36.0); Mean Corpuscular Hemoglobin 28.7 pg (27.0-31.0); Mean Corpuscular Volume 92.3 fL (78.0-98.0); Mean Platelet Volume 8.5 fL (7.4-10.4); Platelet Count 219 thou/uL (130-400); Red Blood Cell (RBC) Count 2.63 mill/uL (4.70-6.10); White Blood Cell (WBC) Count 10.1 thou/uL (4.8-10.8)
[2018-11-07] MEDS: traMADol HCl 50 MG TAB PO PRN (05:08)
[2018-11-07] MEDS: Levothyroxine Sodium 88 MCG TAB PO SCH (05:09)
[2018-11-07 05:14] LABS: Anion Gap 18 mmol/L (10-20); BUN (Urea Nitrogen) 64 mg/dL (8.4-25.7); Calc. Creatinine Clearance 37 mL/min (70-130); Calcium 9.3 mg/dL (7.8-10.44); Carbon Dioxide 32 mmol/L (22-29); Chloride 91 mmol/L (98-107); Estimated GFR-MDRD 12; Glucose 153 mg/dL (70-105); Potassium 3.7 mmol/L (3.5-5.1); Sodium 137 mmol/L (136-145)
[2018-11-07] MEDS: Sevelamer Carbonate 800 MG TAB PO SCH ×3 (07:43→16:45)
[2018-11-07] MEDS: Famotidine 20 MG TAB PO SCH (07:44)
[2018-11-07] MEDS: Gabapentin 100 MG CAP PO SCH ×3 (07:44→21:24)
[2018-11-07] MEDS: Docusate 100 MG CAP PO SCH (07:45)
[2018-11-07] MEDS: Insulin Glargine 5 UNITS in Pre-Filled Syringe 1 EACH SC SCH (07:45)
[2018-11-07] MEDS: Apixaban 2.5 MG TAB PO SCH (08:22)
[2018-11-07] MEDS: Lidocaine 5% Patch TD SCH (08:53)
[2018-11-07] MEDS: Piperacillin/Tazobactam 2.25 GM in Sodium Chloride 0.9% 100 ML IVPB SCH ×2 (08:59→21:25)
--- NOTE | 2018-11-07 09:20 | PRG ---
DATE OF SERVICE: 11/07/2018 SUBJECTIVE: The patient did not wear BiPAP last night. He feels better this morning. He still seems somewhat confused to me. He also remained on a Levophed drip at 1 mcg/minutes. It would appear, he has been on that rate since about 2 o'clock yesterday and I am not completely sure why further attempts were not made to wean the medication. OBJECTIVE: VITAL SIGNS: On exam, his temperature is 98.6, pulse 107, blood pressure 117/54. A 24-hour intake 1171, output 5700 by dialysis. HEENT: Unremarkable. NECK: No JVD. CHEST: Clear anteriorly. CARDIAC: S1, S2. Regular. ABDOMEN: Soft, obese, and nontender. EXTREMITIES: Edematous. LABORATORY DATA: White count 10.1, hematocrit 24.3, and platelet count 219. Sodium 137, potassium 3.7, chloride 91, CO2 of 32, BUN of 64 and creatinine 4.9, and glucose 153. ASSESSMENT: 1. Transient hypotension, which is related either sepsis or volume depletion. 2. End-stage renal disease requiring hemodialysis. 3. Obstructive sleep apnea. 4. History of congestive heart failure. PLAN: Wean off Levophed. Once that is accomplished, we can transfer him to the floor as he has not needed BiPAP overnight. I have suggested this patient have a sleep study in the past. He has never fallen through on that. It will be impossible for him to go home CPAP or BiPAP without the sleep study. Job ID: [id number]
--- NOTE | 2018-11-07 09:28 | PQF ---
LIZZIE BETH ZBIGNIEW A MD [id number] U-A06 [id number] CLINICAL DOCUMENTATION IMPROVEMENT CLARIFICATION FORM: ICD-10 Updated PLEASE DO AN ADDENDUM TO THE PROGRESS NOTE WITH ANY DOCUMENTATION UPDATES OR ADDITIONS AND CARRY THROUGH TO DC SUMMARY. THANK YOU. DATE: 11/07 ATTN : DR. Michael BARKLEY Please exercise your independent, professional judgment in responding to the clarification form. Clinical indicators are provided on the bottom of this form for your review. Please check appropriate box(s): AMI TYPE: [ ] NSTEMI [ ] Type II NC [ ] Demand Ischemia [ ] Other diagnosis [ ] Unable to determine CLINICAL INDICATORS - SIGNS / SYMPTOMS / LABS TROP I: 0.450, 0.814, 0.950 (ADMIT 11/04 &) ER PHYSICIAN DOCUMENTATION 11/04: TROP ELEVATED AT 0.4, NO STEMI CHANGES ON EKG , WILL TREND. RISKS: CAD W/HX NC SEPSIS W/SEPTIC SHOCK ACUTE RESPIRATORY FAILURE TREATMENT: CARDIOLOGY CONSULT SERIAL CARDIAC ENZYMES THANK YOU! Eloisa (This form is maintained as a part of the permanent medical record) 2014 [employer]. All Rights Reserved Eloisa Abad RN, BSN [email or web address] Office: [phone] [facility]
--- NOTE | 2018-11-07 09:52 | CON ---
DATE OF CONSULTATION: CRITICAL CARE NOTE TIME: 30 minutes. HISTORY OF PRESENT ILLNESS: The patient is an unfortunate 58-year-old gentleman with severe coronary artery disease and atrial fibrillation, presented with dyspnea and hypotension. The patient has a long history of coronary artery disease in 2004. He underwent a cardiac catheterization. He was found to have normal left ventricular ejection fraction of 50%. The LAD had a 60% to 70% proximal lesion, 80% to 90% mid stenosis. The left circumflex had an 80% stenosis. Obtuse marginal branch had a 70% stenosis. Right artery coronary had 80% lesion and 90% distal lesion and a subsequent 90% lesion. The patient was felt to be inoperable. He has been put on medical therapy. He has done remarkably well. The patient has developed end-stage renal disease. The patient also has a chronic atrial fibrillation and is treated with low-dose Eliquis. The patient was in the usual state of health when he missed some dialysis treatments. He presented dyspneic and with low blood pressure. The patient denied having any chest discomfort. PAST MEDICAL HISTORY: 1. Coronary artery disease. 2. Atrial fibrillation. 3. Hypertension. 4. Diabetes mellitus. PAST SURGICAL HISTORY: Appendectomy and tonsillectomy. SOCIAL HISTORY: Lives in a shelter. MEDICATIONS: See nursing list. ALLERGIES: HE IS ALLERGIC TO ACCUPRIL. PHYSICAL EXAMINATION: GENERAL: He is an obese gentleman, in no acute distress. VITAL SIGNS: Blood pressure 90/60 on Levophed with a heart rate of 107, irregular. NECK: Showed no jugular venous distention. LUNGS: Crackles throughout both lung tate. HEART: Irregular rate and rhythm. Normal S1 and S2 with distant heart sounds. ABDOMEN: Distended. EXTREMITIES: Showed mild edema. LABORATORY DATA: His white blood count 11.9, hemoglobin 8.1, hematocrit 27.2, platelets 219. Sodium is 139, potassium 3.9, chloride 95, bicarbonate 28, BUN 56, and creatinine 4.5. His EKG revealed atrial fibrillation with a right bundle branch block and occasional ectopic complexes. IMPRESSION: 1. Congestive heart failure. 2. Respiratory failure. 3. Atrial fibrillation. 4. Morbid obesity. 5. Diabetes mellitus. 6. Chronic renal insufficiency. This gentleman presents hypotensive with history of severe inoperable coronary artery disease. We will follow this patient with you through his hospitalization. Critical care note time, 30 minutes. Job ID: [id number]
[2018-11-07] MEDS: HumaLOG 300 UNITS/3 ML VIAL SC PRN (11:47)
--- NOTE | 2018-11-07 12:06 | PRG ---
DATE OF SERVICE: 11/07/2018 SUBJECTIVE: The patient is seen and examined at the bedside. He is quite drowsy during my visit. He is arousable, but he falls asleep quickly. He answers my questions. OBJECTIVE: VITAL SIGNS: Blood pressure is 118/97, pulse is 120, respiratory rate is 40, and pulse oximetry is 90%. GENERAL: He is obese man. His weight is almost 360 pounds. BMI is 56. HEENT: Pupils are responding to light properly. Sclerae are nonicteric. Conjunctivae palish. Oral mucosa is somewhat dry. NECK: Obese. LUNGS: Breath sounds diminished at both bases. HEART: S1 and S2. Tachycardic. No S3. No S4. ABDOMEN: Very obese. Bowel sounds are present. EXTREMITIES: 2+ peripheral edema similar bilateral lower extremities. NEUROLOGIC: Comatose. Able to move his all 4 extremities. Able to answer my questions. LABORATORY DATA: Labs showed a white count of 10.1, hemoglobin 7.6, hematocrit 24.3, platelet count 219, and 76.6 neutrophils. Sodium 137, potassium 3.7, chloride 91, CO2 of 32, BUN 64, creatinine 4.92, glycemia is ranging from 116 to 189, and calcium 9.3. IMPRESSION: 1. Hypotension either septic in etiology or related. 2. Congestive heart failure, acute on chronic. 3. Atrial fibrillation, chronic. 4. Diabetes mellitus type 2. Relatively well controlled. 5. Volume overload. 6. End-stage renal disease. 7. Severe coronary artery disease inoperable. 8. History of hypertension. PLAN: Plan is to continue his current regimen with vancomycin and Zosyn. Blood cultures are negative so far. We will continue apixaban for his atrial fibrillation and stroke prevention. We will continue his 5 units of insulin glargine plus sliding scale, which seems to be covering him quite well. Continue his levothyroxine for hypothyroidism, which is 1 of the diagnosis and deep venous thrombosis prophylaxis. Job ID: [id number]
--- NOTE | 2018-11-07 12:27 | PRG ---
DATE OF SERVICE: 11/07/2018 SUBJECTIVE: A 58-year-old gentleman, being seen for end-stage renal disease. The patient denied any nausea, vomiting, or chest pain. The patient remains OBJECTIVE: GENERAL: The patient is awake and alert. VITAL SIGNS: Afebrile. Pulse , breathing 16, blood pressure 100/81. GENERAL APPEARANCE AND MENTAL STATUS: Fair. HEAD/NECK: Normocephalic. Atraumatic. EYES: EOMI. No deformity. EARS: Clear. No ulcers. NOSE: Intact. No lesions. MOUTH: Clear. No discharge. THROAT: Clear. No exudate. LUNGS: Clear. No crackles. CARDIAC: S1, S2. No rub. ABDOMEN: Benign. Bowel sounds positive. GENITALIA/RECTUM: Quezada absent. BACK/EXTREMITIES: Edema 0+. NEUROLOGICAL: Alert and motor intact. SKIN: LYMPHATICS: LABORATORY DATA: Hemoglobin 7.6. Creatinine 4.9. ASSESSMENT AND PLAN: 1. Stage 6 chronic kidney disease, plan dialysis. 2. Anemia, plan transfusion. 3. Atrial fibrillation, rate uncontrolled. 4. Medication based on GFR appropriate. Job ID: [id number]
[2018-11-07 17:26] LABS: Vancomycin, Random 6.1 ug/mL (See Comment)
[2018-11-07] MEDS: Lidocaine Patch Removal 1 EACH TOP SCH (21:24)
[2018-11-07] MEDS: Atorvastatin Calcium 20 MG TAB PO SCH (21:24)
[2018-11-07] MEDS: rOPINIRole HCl 2 MG TAB PO SCH (21:25)
[2018-11-08 03:40] LABS: #Eosinphils 0.4 thou/uL (0.0-0.7); #Lymphocytes 1.1 thou/uL (1.20-3.40); #Monocytes 0.6 thou/uL (0.11-0.59); #Neutrophils 7.9 thou/uL (1.40-6.50); %Basophils 0.5 % (0.0-1.0); %Eosinophils 4.3 % (0.0-10.0); %Lymphocytes 11.3 % (21.0-51.0); %Monocytes 5.9 % (0.0-10.0); %Neutrophils 78.1 % (42.0-75.0); Hemoglobin 8.9 g/dL (14.0-18.0); Mean Corpuscular HGB CONC 31.6 g/dL (32.0-36.0); Mean Corpuscular Volume 91.7 fL (78.0-98.0); Platelet Count 216 thou/uL (130-400); RBC Distribution Width 15.2 % (11.5-14.5); Red Blood Cell (RBC) Count 3.06 mill/uL (4.70-6.10); White Blood Cell (WBC) Count 10.1 thou/uL (4.8-10.8)
[2018-11-08 04:00] LABS: Anion Gap 16 mmol/L (10-20); BUN (Urea Nitrogen) 41 mg/dL (8.4-25.7); Calc. Creatinine Clearance 48 mL/min (70-130); Calcium 9.4 mg/dL (7.8-10.44); Carbon Dioxide 32 mmol/L (22-29); Chloride 95 mmol/L (98-107); Estimated GFR-MDRD 16; Glucose 159 mg/dL (70-105); Potassium 3.7 mmol/L (3.5-5.1); Sodium 139 mmol/L (136-145)
[2018-11-08] MEDS: Levothyroxine Sodium 88 MCG TAB PO SCH (06:18)
[2018-11-08] MEDS: HumaLOG 300 UNITS/3 ML VIAL SC PRN (06:19)
[2018-11-08 06:29] VITALS: BMI 55.2
--- NOTE | 2018-11-08 09:04 | PQF ---
LIZZIE BETH ZBIGNIEW A MD [id number] U-A06 [id number] CLINICAL DOCUMENTATION IMPROVEMENT CLARIFICATION FORM: ICD-10 Updated PLEASE DO AN ADDENDUM TO THE PROGRESS NOTE WITH ANY DOCUMENTATION UPDATES OR ADDITIONS AND CARRY THROUGH TO DC SUMMARY. THANK YOU. DATE: 11/07 ATTN : DR. Michael BARKLEY Please exercise your independent, professional judgment in responding to the clarification form. Clinical indicators are provided on the bottom of this form for your review. Please check appropriate box(s): AMI TYPE: [ ] NSTEMI [ ] Type II VA [ ] Demand Ischemia [ ] Other diagnosis [ x] Unable to determine CLINICAL INDICATORS - SIGNS / SYMPTOMS / LABS TROP I: 0.450, 0.814, 0.950 (ADMIT 11/04 &) ER PHYSICIAN DOCUMENTATION 11/04: TROP ELEVATED AT 0.4, NO STEMI CHANGES ON EKG , WILL TREND. RISKS: CAD W/HX VA SEPSIS W/SEPTIC SHOCK ACUTE RESPIRATORY FAILURE TREATMENT: CARDIOLOGY CONSULT SERIAL CARDIAC ENZYMES THANK YOU! Eloisa (This form is maintained as a part of the permanent medical record) 2014 [employer]. All Rights Reserved Eloisa Abad RN, BSN [email or web address] Office: [phone] [facility]
--- NOTE | 2018-11-08 09:15 | PRG ---
DATE OF SERVICE: 11/08/2018 TIME SPENT: 35 minutes. SUBJECTIVE: The patient is doing well. Did not use BiPAP last night. He has not been on Levophed for quite some time. OBJECTIVE: VITAL SIGNS: Temperature 97.9, pulse 107, blood pressure 109/78, O2 saturation in the low 90s on nasal cannula. GENERAL: He is a disheveled appearing male in no acute distress. HEENT: Unremarkable. NECK: No JVD. LUNGS: Clear anteriorly. CARDIAC: S1, S2. Irregularly irregular. ABDOMEN: Obese, soft. EXTREMITIES: Edematous. LABORATORY DATA: White blood cell count 10, hematocrit 28.1, and platelet count 216. Sodium 139, potassium 3.7, chloride 95, CO2 of 32, BUN 41, creatinine 3.7, glucose 159. ASSESSMENT: 1. Status post acute respiratory failure requiring BiPAP. 2. Obstructive sleep apnea, which the patient refuses to treat. 3. Transient hypotension, which is probably from either sepsis or volume depletion. I favor volume depletion since his cultures were negative. PLAN: He can be transferred out to telemetry. No other recommendations at this time. Job ID: [id number]
[2018-11-08] MEDS: Famotidine 20 MG TAB PO SCH (09:36)
[2018-11-08] MEDS: Gabapentin 100 MG CAP PO SCH ×3 (09:36→21:02)
[2018-11-08] MEDS: Docusate 100 MG CAP PO SCH (09:36)
[2018-11-08] MEDS: Sevelamer Carbonate 800 MG TAB PO SCH ×3 (09:36→17:33)
[2018-11-08] MEDS: Apixaban 2.5 MG TAB PO SCH (09:36)
[2018-11-08] MEDS: Lidocaine 5% Patch TD SCH (09:37)
[2018-11-08] MEDS: Insulin Glargine 5 UNITS in Pre-Filled Syringe 1 EACH SC SCH (09:37)
[2018-11-08] MEDS: Piperacillin/Tazobactam 2.25 GM in Sodium Chloride 0.9% 100 ML IVPB SCH ×2 (09:38→21:00)
[2018-11-08 11:00] LABS: Vancomycin, Random 12.7 ug/mL (See Comment)
--- NOTE | 2018-11-08 11:18 | PRG ---
DATE OF SERVICE: 11/08/2018 SUBJECTIVE: A 58-year-old gentleman being seen for end-stage renal disease. The patient denied any nausea, vomiting, or chest pain. OBJECTIVE: See above. CONSTITUTIONAL: Awake, alert, in no acute distress. VITAL SIGNS: Afebrile. Pulse 130, breathing 16, blood pressure 118/73. GENERAL APPEARANCE AND MENTAL STATUS: Fair. HEAD/NECK: Normocephalic. Atraumatic. EYES: EOMI. No deformity. EARS: Clear. No ulcers. NOSE: Intact. No lesions. MOUTH: Clear. No discharge. THROAT: Clear. No exudate. LUNGS: Clear. No crackles. CARDIAC: S1, S2. No rub. ABDOMEN: Benign. Bowel sounds positive. GENITALIA/RECTUM: Quezada absent. BACK/EXTREMITIES: Edema 0+. NEUROLOGICAL: Alert and motor intact. SKIN: LYMPHATICS: LABORATORY DATA: Lab show hemoglobin 8.5. Potassium 3.6. ASSESSMENT AND RECOMMENDATION: 1. Stage 6 chronic kidney disease, . 2. Tachycardia. I would recommend rate control. 3. Anemia, stable. 4. Medication based on glomerular filtration rate, appropriate. 5. Overall prognosis is poor. Job ID: [id number]
--- NOTE | 2018-11-08 16:04 | PRG ---
DATE OF SERVICE: 11/08/2018 SUBJECTIVE: The patient is seen and examined at the bedside. He does not have much complaints to offer. OBJECTIVE: VITAL SIGNS: Blood pressure is 115/84, pulse is 112, respiratory rate is 22, and O2 saturation is 98% on 4 L by nasal cannula. GENERAL: He follows my commands. HEENT: His pupils are responding to light properly. Sclerae are nonicteric. Conjunctivae, palish. Oral mucosa is somewhat dry. NECK: Supple, obese. LUNGS: Breath sounds diminished at both bases. HEART: S1 and S2. Irregularly irregular. Tachycardic. No S3. No S4. ABDOMEN: Soft, very obese, nontender. EXTREMITIES: 2+ peripheral edema on lower extremities. NEUROLOGIC: He follows my commands. He has normal 4 extremity movements. LABORATORY DATA: Labs showed a white count of 10.1, hemoglobin of 8.9, hematocrit 28.1, platelet count is 216,000. Chemistry showed a sodium of 139, potassium 3.9, chloride 95, CO2 of 32, BUN 41, creatinine 3.77, glycemia is ranging from 146 to 152, calcium 9.4, and random vancomycin is 12.7. IMPRESSION: 1. Hypotension, most likely related to low volume secondary to dialysis. 2. Congestive heart failure, acute on chronic, improved. 3. Atrial fibrillation, chronic. We are going to start his metoprolol succinate 12.5 mg small dose since he was still hypotensive and required vasopressors not that long time ago. 4. Diabetes mellitus, relatively well controlled. 5. Severe coronary artery disease, inoperable. 6. History of hypertension. 7. End-stage renal disease. 8. Status post acute respiratory failure, requiring BiPAP. 9. Obstructive sleep apnea. PLAN: The patient was released by Critical Care/acetaldehyde converter operator from intensive care unit. We will transfer him to telemetry floor and continue current regimen. The blood cultures are negative. We will discuss the case with computer forensic specialist regarding necessity of continuation of his vancomycin. For now, he will continue vancomycin and Zosyn and we will continue his Eliquis and his insulin as ordered previously. Job ID: [id number]
[2018-11-08] MEDS: Atorvastatin Calcium 20 MG TAB PO SCH (21:02)
[2018-11-08] MEDS: rOPINIRole HCl 2 MG TAB PO SCH (21:03)
[2018-11-08] MEDS: Lidocaine Patch Removal 1 EACH TOP SCH (21:18)
[2018-11-09] MEDS: traMADol HCl 50 MG TAB PO PRN ×2 (00:53→13:13)
[2018-11-09] MEDS: Levothyroxine Sodium 88 MCG TAB PO SCH (06:39)
--- NOTE | 2018-11-09 07:52 | PQF ---
LIZZIE BETH ZBIGNIEW A MD [id number] [facility]- 7 [id number] CLINICAL DOCUMENTATION IMPROVEMENT CLARIFICATION FORM: ICD-10 Updated PLEASE DO AN ADDENDUM TO THE PROGRESS NOTE WITH ANY DOCUMENTATION UPDATES OR ADDITIONS AND CARRY THROUGH TO DC SUMMARY. THANK YOU. DATE: 11/09 ATTN: DR. Michael BARKLEY Please exercise your independent, professional judgment in responding to the clarification form. Clinical indicators are provided on the bottom of this form for your review. Please check appropriate box(s) to clarify if the following diagnosis has been ruled in or ruled out: SEPSIS W/SEPTIC SHOCK [ ] Ruled in diagnosis [ ] Continue to treat [ ] Resolved [ ] Ruled out diagnosis [ ] Other diagnosis [ x ] Unable to determine In addition, please specify: Present on Admission (POA): [ ] Yes [ ] No [ x ] Unable to determine For continuity of documentation, please document condition throughout progress notes and discharge summary. Thank You. CLINICAL INDICATORS - SIGNS / SYMPTOMS / LABS ER PRESENTATION 11/04: SATS 4L: 95-99 RR: 28 HR: 120 BP: 92/62-136/ 94 T: 101.6 (R) WBC 13.9 PN 11/05 & (KERA): SEPSIS ASSOCIATED HYPOTENSION OP REPORT FOR R FEMORAL CL PLACEMENT 11/05 (SEBASTIAN): PREOPERATIVE DIAGNOSIS: SEPTIC SHOCK PULM PN 11/06 & 15: TRANSIENT HYPOTENSION R/T EITHER SEPSIS OR VOLUME DEPLETION ATTENDING PN 11/07 (RUBIA): 1) HYPOTENSION EITHER SEPTIC IN ETIOLOGY PN 11/08 (RUBIA): 1) HYPOTENSION, MOST LIKELY R/T LOW VOLUME 2/2 DIALYSIS RISKS: ACUTE ON CHRONIC RESPIRATORY FAILURE HYPOTENSION TREATMENT: IV ANTIBIOTICS (ZOSYN & VANC 11/04 - PRESENT) LEVOPHED CCU MONITORING THANK YOU! Eloisa (This form is maintained as a part of the permanent medical record) 2014 [employer]. All Rights Reserved Eloisa Abad RN, BSN [email or web address] Office: [phone] [facility]
--- NOTE | 2018-11-09 08:06 | PQF ---
LIZZIE BETH ZBIGNIEW A MD [id number] [facility]- B07 [id number] CLINICAL DOCUMENTATION IMPROVEMENT CLARIFICATION FORM: ICD-10 Updated PLEASE DO AN ADDENDUM TO THE PROGRESS NOTE WITH ANY DOCUMENTATION UPDATES OR ADDITIONS AND CARRY THROUGH TO DC SUMMARY. THANK YOU. DATE: ATTN: DR. Michael BARKLEY / DR. LOBITO HSU Please exercise your independent, professional judgment in responding to the clarification form. Clinical indicators are provided on the bottom of this form for your review. Please check appropriate box(s): ACUTE ON CHRONIC HEART FAILURE TYPE: [ ] Systolic / HFrEF [ ] Diastolic / HFpEF [ ] Combined Systolic / Diastolic ACUTE ON CHRONIC HEART FAILURE D/T: [ ] Fluid Overload [ ] Non-compliance w/Dialysis [ ] Fluid Overload & Non-compliance w/Dialysis [ ] Other diagnosis [ ] Unable to determine For continuity of documentation, please document condition throughout progress notes and discharge summary. Thank You. CLINICAL INDICATORS - SIGNS / SYMPTOMS / LABS PN 11/05 (KERA): 2) CHF, ACUTE ON CHRONIC (UNSPECIFIED); 3) VOLUME OVERLOAD NEPHROLOGY CONSULT 11/05: 1) ESRD, ...WILL HAVE EMERGENT DIALYSIS, FLUID OVERLOAD; 2: FLUID OVERLOAD W/HYPOTENSION ATTENDING PN 11/06 (KERA): 2) CHF, ACUTE ON CHRONIC; 3) VOLUME OVERLOAD ATTENDING PN 11/07 (RUBIA): 2) CHF, ACUTE ON CHRONIC; 5) VOLUME OVERLOAD PN 11/08 & 17 (RUBIA): 2) CHF, ACUTE ON CHRONIC, UNSPECIFIED RISKS: ESRD ON DIALYSIS (NON-COMPLIANCE) HX OF CHF VOLUME OVERLOAD TREATMENTS: EMERGENT DIALYSIS THANK YOU! Eloisa (This form is maintained as a part of the permanent medical record) 2015 [employer]. All Rights Reserved Eloisa Abad RN, BSN [email or web address] Office: [phone] [facility]OSPIT[facility]
[2018-11-09 08:37] LABS: Vancomycin, Random 11.5 ug/mL (See Comment)
[2018-11-09] MEDS: Piperacillin/Tazobactam 2.25 GM in Sodium Chloride 0.9% 100 ML IVPB SCH (09:42)
[2018-11-09] MEDS: Apixaban 2.5 MG TAB PO SCH (09:43)
[2018-11-09] MEDS: Gabapentin 100 MG CAP PO SCH ×3 (09:43→20:44)
[2018-11-09] MEDS: Famotidine 20 MG TAB PO SCH (09:43)
[2018-11-09] MEDS: Docusate 100 MG CAP PO SCH (09:43)
[2018-11-09] MEDS: Insulin Glargine 5 UNITS in Pre-Filled Syringe 1 EACH SC SCH (09:44)
[2018-11-09] MEDS: Lidocaine 5% Patch TD SCH (09:45)
[2018-11-09] MEDS: Sevelamer Carbonate 800 MG TAB PO SCH ×3 (09:47→18:59)
--- NOTE | 2018-11-09 09:58 | PRG ---
DATE OF SERVICE: 11/09/2018 SUBJECTIVE: The patient had to use BiPAP temporally yesterday because he was too sleepy. According to the nursing staff today, he looks fine and has no complaints. PHYSICAL EXAMINATION: VITAL SIGNS: Temperature 97.8, pulse 100, respirations 16, O2 saturation 97% on 4 L, and blood pressure 106/68. HEENT: Unremarkable. NECK: No adenopathy, JVD, or bruits. LUNGS: Clear anteriorly. CARDIAC: S1, S2. Regular. ABDOMEN: Soft. EXTREMITIES: Edematous. ASSESSMENT: 1. Chronic hypoxic respiratory failure. 2. End-stage renal disease. 3. Obstructive sleep apnea, which the patient has refused to get a sleep study and treatment in the past. PLAN: The patient's situation is currently stable. He can continue BiPAP as needed, but I doubt he will wear it. Continue hemodialysis. Job ID: [id number]
--- NOTE | 2018-11-09 10:57 | PRG ---
DATE OF SERVICE: 11/09/2018 SUBJECTIVE: A 58-year-old gentleman being seen for end-stage renal disease. The patient denied any nausea, vomiting, or chest pain. OBJECTIVE: CONSTITUTIONAL: The patient is awake and alert. VITAL SIGNS: Afebrile, pulse 87, breathing 16, blood pressure 106/68. GENERAL APPEARANCE AND MENTAL STATUS: Fair. HEAD/NECK: Normocephalic. Atraumatic. EYES: EOMI. No deformity. EARS: Clear. No ulcers. NOSE: Intact. No lesions. MOUTH: Clear. No discharge. THROAT: Clear. No exudate. LUNGS: Clear. No crackles. CARDIAC: S1, S2. No rub. ABDOMEN: Benign. Bowel sounds positive. GENITALIA/RECTUM: Quezada absent. BACK/EXTREMITIES: Edema 0+. NEUROLOGICAL: Alert and motor intact. SKIN: LYMPHATICS: LABORATORY DATA: Labs show hemoglobin 8.9. ASSESSMENT AND PLAN: 1. Stage 6 chronic kidney disease, plan dialysis. 2. Hypertension, stable. 3. Anemia, stable. 4. Medication based on GFR appropriate. 5. Overall prognosis is very poor. Noncompliance with treatment in the past was the major issue. Job ID: [id number]
--- NOTE | 2018-11-09 13:07 | PRG ---
DATE OF SERVICE: 11/09/2018 SUBJECTIVE: The patient is seen and examined at bedside. He was just taking a nap. I woke him up. He states that he feels okay. He does not have much complaints to offer. OBJECTIVE: VITAL SIGNS: Blood pressure is 107/67, pulse is 91, temperature 97.2, respiratory rate is 18, and O2 saturation is 97% on 4 L by nasal cannula. GENERAL: He is very obese man with BMI more than 50. HEENT: His eyes are PERRLA. Sclerae nonicteric. Oral mucosa is slightly dry. NECK: Supple, obese. LUNGS: Breath sounds diminished at both bases with some dullness bilaterally to those two areas on percussion. HEART: S1 and S2, somewhat distant. No S3. No S4. Irregularly irregular. ABDOMEN: Soft, obese. Bowel sounds are present. EXTREMITIES: 2+ peripheral edema, especially on the lower extremities. 1+ to 1 to 2+ peripheral edema on the left upper extremities. LABORATORY DATA: Microbiology; blood cultures negative x48 hours. Glycemia is ranging from 119 to 146. IMPRESSION: 1. Hypotension which is felt to be low volume secondary to dialysis. At this point, blood cultures came back negative. We will switch him to oral antibiotic for now. 2. Congestive heart failure, acute on chronic, improved. 3. Atrial fibrillation, chronic. He started on metoprolol succinate yesterday and this controlled his ventricular rate below 100. We will continue that. 4. Diabetes mellitus, relatively well controlled. 5. Severe coronary artery disease, inoperable. 6. History of hypertension. 7. End-stage renal disease, on hemodialysis. 8. Status post acute respiratory failure, requiring BiPAP on and off. 9. Obstructive sleep apnea. Apparently, he refused sleep apnea studies in the past. We are going to dialyze him today for more than 3 hours and we will continue his apixaban. We will continue his levothyroxine. We will continue his glargine 5 units every morning. We will continue his ropinirole and we will stop vancomycin and Zosyn. Start him on levofloxacin 500 mg once a day. Job ID: [id number]
[2018-11-09] MEDS: rOPINIRole HCl 2 MG TAB PO SCH (20:44)
[2018-11-09] MEDS: Atorvastatin Calcium 20 MG TAB PO SCH (20:44)
[2018-11-09] MEDS: Lidocaine Patch Removal 1 EACH TOP SCH (20:45)
[2018-11-10] MEDS: Levothyroxine Sodium 88 MCG TAB PO SCH (06:16)
[2018-11-10] MEDS: Insulin Glargine 5 UNITS in Pre-Filled Syringe 1 EACH SC SCH (09:07)
[2018-11-10] MEDS: Famotidine 20 MG TAB PO SCH (09:07)
[2018-11-10] MEDS: Gabapentin 100 MG CAP PO SCH ×2 (09:08→14:56)
[2018-11-10] MEDS: Sevelamer Carbonate 800 MG TAB PO SCH ×3 (09:08→17:22)
[2018-11-10] MEDS: Apixaban 2.5 MG TAB PO SCH (09:10)
[2018-11-10] MEDS: Docusate 100 MG CAP PO SCH (09:10)
--- NOTE | 2018-11-10 09:31 | PRG ---
DATE OF SERVICE: 11/10/2018 SUBJECTIVE: The patient remains in the IMCU. He did not require BiPAP last night. OBJECTIVE: GENERAL: He is awake and alert. VITAL SIGNS: On exam, his temperature is 98.0, pulse 93, respirations 20, and O2 saturation is 100% on 4 L. HEENT: Shows no abnormalities. NECK: No JVD. LUNGS: Clear. CARDIAC: S1, S2. Regular. ABDOMEN: Soft. EXTREMITIES: Edematous. LABORATORY DATA: No labs were obtained today. ASSESSMENT: 1. Obstructive sleep apnea - the patient refuses sleep study and BiPAP. 2. Chronic hypoxic respiratory failure. 3. End-stage renal disease. PLAN: The patient is probably [facility]. If he changes in mind about sleep study in the future, then we can get that setup. Job ID: [id number]
[2018-11-10] MEDS: Lidocaine 5% Patch TD SCH (12:32)
--- NOTE | 2018-11-10 12:41 | PRG ---
DATE OF SERVICE: 11/10/2018 SUBJECTIVE: A 58-year-old gentleman being admitted for end-stage renal disease. The patient denied any nausea, vomiting, or chest pain. OBJECTIVE: CONSTITUTIONAL: The patient is awake and alert. VITAL SIGNS: Afebrile, pulse 93, breathing 16, and blood pressure 91/ 63. GENERAL APPEARANCE AND MENTAL STATUS: Fair. HEAD/NECK: Normocephalic. Atraumatic. EYES: EOMI. No deformity. EARS: Clear. No ulcers. NOSE: Intact. No lesions. MOUTH: Clear. No discharge. THROAT: Clear. No exudate. LUNGS: Clear. No crackles. CARDIAC: S1, S2. No rub. ABDOMEN: Benign. Bowel sounds positive. GENITALIA/RECTUM: Quez[place] absent. BACK/EXTREMITIES: Edema 0+. NEUROLOGICAL: Alert and motor intact. SKIN: LYMPHATICS: LABORATORY DATA: Labs show hemoglobin 8.6. ASSESSMENT AND PLAN: 1. Stage 6 chronic kidney disease, . 2. Hypertension, stable. 3. Anemia, stable. 4. Medication based on GFR appropriate. 5. Discharge planning is appropriate. Job ID: [id number]
--- NOTE | 2018-11-10 15:38 | DIS ---
DATE OF ADMISSION: 11/04/2018 DATE OF DISCHARGE: 11/10/2018 DISCHARGE DISPOSITION: To [facility]. Follow up with Dr. Maxwell at the nursing facility. DISCHARGE MEDICATIONS: Levaquin 250 mg every other day for the next 3 dose. All other medications were left unchanged. INPATIENT CONSULTANTS: 1. Nephrology, Dr. Fonseca. 2. Cardiology, Dr. Maximo Drake. 3. Pulmonary, Dr. Ryan Juárez. INPATIENT PROCEDURE: On 11/05/2018, the patient underwent right femoral line placement. BRIEF HOSPITAL COURSE: The patient is a 58-year-old male with end-stage renal disease, on hemodialysis; chronic atrial fibrillation; hypertension; and end- stage renal disease, on hemodialysis, who was brought into the emergency room on 11/04/2018, with vomiting and possible hematemesis. The patient was sleepy, but arousable in the emergency room. His EKG showed atrial fibrillation with rapid ventricular response. He was found to have slightly elevated troponin. He also had some fever prior to ER arrival. Please refer to the history and physical for further details. The patient was admitted to the hospital with a diagnosis of suspected sepsis. He was seen by multiple consultants as discussed above. He was dialyzed per Nephrology. He was also seen by Cardiology. He has been cleared by consultants for discharge. FINAL DIAGNOSES: 1. Acute on chronic diastolic heart failure exacerbation. Echocardiogram recently showed ejection fraction of 45% to 50% with mild mitral regurgitation and mild tricuspid regurgitation. ACC stage C. 2. Hypotension with low-grade fever. Suspected sepsis. The patient was placed on IV antibiotics that has been changed to p.o. 3. Chronic atrial fibrillation, on anticoagulation. 4. Diabetes mellitus, type 2. 5. Severe inoperable coronary artery disease. 6. History of hypertension. 7. End-stage renal disease, on hemodialysis. 8. Obstructive sleep apnea. The patient is refusing sleep studies. 9. Morbid obesity with a BMI of 55.2. 10. Chronic anticoagulation. 11. Restless legs syndrome. 12. End-stage renal disease, on hemodialysis. 13. Chronic anemia, secondary to renal insufficiency. 14. Elevated troponins, secondary to demand ischemia. Plan was discussed with the patient in detail. He stated understanding. Job ID: [id number] [facility]
[2018-11-10 15:48] VITALS: BP 97/68; TEMP 98
--- NOTE | 2018-11-11 13:26 | EKG ---
Test Reason : Blood Pressure : / mmHG Vent. Rate : 120 BPM Atrial Rate : 075 BPM P-R Int : 000 ms QRS Dur : 100 ms QT Int : 336 ms P-R-T Axes : 000 139 056 degrees QTc Int : 474 ms Atrial fibrillation with rapid ventricular response with premature ventricular or aberrantly conducte d complexes Incomplete right bundle branch block Possible Right ventricular hypertrophy Cannot rule out Inferior infarct , age undetermined Possible Anterolateral infarct , age undetermined Abnormal ECG Confirmed by BRIANA MCGHEE ([id number]), videotape editor MAURO PURDY ([id number]) on 11/11/2018 1:26:46 PM Referred By: Confirmed By:BRIANA MCGHEE
== END 2018-11-10 18:54 | DRG 871 ==
LOC: ERS 18:21 → ERHOLD 21:00 → IMCU/EMU 11-05 03:04 → CCU 11-05 09:58 → IMCU/EMU 11-08 14:24
PROVIDERS: ADMIT Internal Medicine; ATTEND Internal Medicine
PROC: 02HV33Z Insertion of Infusion Device into Superior Vena Cava, Percutaneous Approach (ICD-10-PCS; principal; 2018-11-04)
PROC: 5A1D70Z Performance of Urinary Filtration, Intermittent, Less than 6 Hours Per Day (ICD-10-PCS; 2018-11-09)
DX: A41.9 Sepsis, unspecified organism (principal); N18.6 End stage renal disease; R65.21 Severe sepsis with septic shock; J96.21 Acute and chronic respiratory failure with hypoxia; I50.33 Acute on chronic diastolic (congestive) heart failure; N17.9 Acute kidney failure, unspecified; I13.2 Hypertensive heart and chronic kidney disease with heart failure and with stage 5 chronic kidney disease, or end stage renal disease; Z68.43 Body mass index [BMI] 50.0-59.9, adult; E87.70 Fluid overload, unspecified; I48.91 Unspecified atrial fibrillation; E11.22 Type 2 diabetes mellitus with diabetic chronic kidney disease; I25.2 Old myocardial infarction; Z99.2 Dependence on renal dialysis; E03.9 Hypothyroidism, unspecified; M19.90 Unspecified osteoarthritis, unspecified site; I25.10 Atherosclerotic heart disease of native coronary artery without angina pectoris; D63.1 Anemia in chronic kidney disease; G47.33 Obstructive sleep apnea (adult) (pediatric); E66.01 Morbid (severe) obesity due to excess calories; I95.3 Hypotension of hemodialysis; G25.81 Restless legs syndrome
CPT/HCPCS: 36415; 36416; 36430; 51702; 71045; 80048; 80053; 80202; 82553; 83605; 83735; 83880; 84443; 84484; 85025; 86850; 86900; 86901; 87040; 87804; 90935; 93005; 94640; 94660; 96365; 96367; 96375; G0257; J0131; J1644; J1940; J1956; J2001; J2543; J2765; J3370; J7050; J7620; P9016; P9047; Q0162; Q4081; S0028

== ENCOUNTER 2018-11-13 08:36 | Emergency (ER) | payer MEDICARE, MEDICAID ==
[2018-11-13] MEDS ORDERED: Oxymetazoline HCl 0.05% ( 15 ML ) ONE (08:50)
[2018-11-13] MEDS ORDERED: Ondansetron ODT 8 MG TAB ONE (09:11)
[2018-11-13 09:44] LABS: INR-International Normal Ratio 2.5; PTT 40.2 SEC (22.9-36.1)
== END 2018-11-13 12:11 | disposition home or self-care (01) ==
LOC: ERS 08:36
DX: R04.0 Epistaxis (principal); I48.91 Unspecified atrial fibrillation; E11.9 Type 2 diabetes mellitus without complications; E03.9 Hypothyroidism, unspecified; I11.0 Hypertensive heart disease with heart failure; E21.3 Hyperparathyroidism, unspecified; I50.9 Heart failure, unspecified; I25.10 Atherosclerotic heart disease of native coronary artery without angina pectoris; M19.90 Unspecified osteoarthritis, unspecified site; D50.0 Iron deficiency anemia secondary to blood loss (chronic); D41.9 Neoplasm of uncertain behavior of unspecified urinary organ; D32.9 Benign neoplasm of meninges, unspecified; Z87.01 Personal history of pneumonia (recurrent); Z79.899 Other long term (current) drug therapy; Z79.4 Long term (current) use of insulin
CPT/HCPCS: 30903; 36415; 85610; 85730

== ENCOUNTER 2018-11-15 14:56 | Inpatient (IN) | payer MEDICARE, MEDICAID ==
[2018-11-15] MEDS ORDERED: Phenylephrine 0.25% Nasal Spray 15 ML BOT ONE (15:27)
[2018-11-15 16:00] LABS: Hemoglobin 7.7 g/dL (14.0-18.0); Mean Corpuscular HGB CONC 30.4 g/dL (32.0-36.0); Mean Corpuscular Hemoglobin 28.1 pg (27.0-31.0); Mean Corpuscular Volume 92.3 fL (78.0-98.0); Mean Platelet Volume 8.8 fL (7.4-10.4); Platelet Count 230 thou/uL (130-400); RBC Distribution Width 16.7 % (11.5-14.5); Red Blood Cell (RBC) Count 2.73 mill/uL (4.70-6.10); White Blood Cell (WBC) Count 12.7 thou/uL (4.8-10.8)
[2018-11-15 16:20] LABS: ALT (SGPT) 25 U/L (8-55); AST (SGOT) 33 U/L (5-34); Albumin 3.3 g/dL (3.5-5.0); Alkaline Phosphatase 113 U/L (40-150); Anion Gap 26 mmol/L (10-20); BUN (Urea Nitrogen) 116 mg/dL (8.4-25.7); Bilirubin, Total 0.7 mg/dL (0.2-1.2); Calc. Creatinine Clearance 0 mL/min (70-130); Calcium 9.3 mg/dL (7.8-10.44); Carbon Dioxide 19 mmol/L (22-29); Chloride 93 mmol/L (98-107); Estimated GFR-MDRD 7; Glucose 174 mg/dL (70-105); Magnesium 2.3 mg/dL (1.6-2.6); Potassium 6.1 mmol/L (3.5-5.1); Protein, Total 7.3 g/dL (6.0-8.3); Sodium 132 mmol/L (136-145)
[2018-11-15 16:24] LABS: Anisocytosis SLIGHT = 6-15 cells (100X) (0-5/hpf); Band 7 % (5-11); Eosinophils 1 % (0-10); Hypochromia SLIGHT = 6-15 cells (100X) (0-5/hpf); Lymphocytes 8 % (21-51); MDiff Complete? YES; Monocytes 5 % (0-10); Neutrophil 79 % (42-75); Platelet Morphology Comment Appears Adequate; Poikilocytosis SLIGHT = 6-15 cells (100X) (0-5/hpf); Polychromasia SLIGHT = 2-3 cells (100X) (0-2/hpf); Tear Drops SLIGHT = 2-5 cells (100X) (0-1/hpf)
[2018-11-15 16:36] LABS: Actual Bicarbonate (HCO3a) 24.6 mEq/L (22-28); Analyzer IN Cardio ER; Base Excess (BEa) -4.4 mEq/L (-2.0 to +3.0); Calcium, Ionized 1.14 mmol/L (1.12-1.30); Carboxyhemoglobin (COHb) 0.8 gm% (0.0-3.0); Hemoglobin (Hb) 9.3 g/dL (14.0-18.0); Potassium - ABG Lab 5.63 mmol/L (3.70-5.30)
[2018-11-15] MEDS ORDERED: Aspirin Chewable 81 MG TAB ONE (16:41)
[2018-11-15 16:44] LABS: CK (CPK) 79 U/L (30-200); Lipase 69 U/L (8-78); Phosphorus 7.5 mg/dL (2.3-4.7)
[2018-11-15 16:47] LABS: pH, Arterial 7.17 (7.35-7.45)
[2018-11-15 16:48] LABS: CO2 Tension 68.4 mmHg (35.0-45.0); Puncture Site L.B.
[2018-11-15 16:49] LABS: CKMB 12.6 ng/mL (0-6.6)
--- NOTE | 2018-11-15 16:49 | RAD ---
CHEST 1 VIEW: Date: 11/15/18 HISTORY: Altered mental status. Nosebleed. COMPARISON: 11/04/18. FINDINGS: Cardiac silhouette is magnified and enlarged. Pulmonary vasculature remains engorged, but with less b ilateral infiltrates than on the prior study. Linear atelectasis at the right base is now more visibl e, uncovered from the edema on the previous study. Mediastinum is midline with aortic calcification. Slight leftward rotation of the patient. No evidenc e of pneumothorax. telemetry monitor leads overlie the chest. IMPRESSION: 1. Improved aeration of the lungs compared to the prior study. Cardiomegaly and mild pulmonary vascu lar congestion persists. 2. Atherosclerosis. POS: [facility]
[2018-11-15] MEDS ORDERED: Norepinephrine 8 MG/0.9% NS 250 ML ONE (17:12)
[2018-11-15] MEDS ORDERED: Sodium Bicarb 50 MEQ/50 ML VIAL ONE (17:27)
[2018-11-15] MEDS ORDERED: Dextrose 50% Abboject 50 ML SYRINGE ONE (17:27)
[2018-11-15] MEDS ORDERED: Insulin Regular 300 UNITS/3 ML VIAL ONE (17:27)
[2018-11-15] MEDS ORDERED: Albuterol Sulfate 2.5 mg/3 ml Neb ONE (17:43)
[2018-11-15] MEDS ORDERED: Albuterol Sulfate 2.5 mg/0.5 ml Neb ONE (17:43)
[2018-11-15] MEDS ORDERED: Calcium Chloride 13.6 MEQ in Sodium Chloride 0.9% 100 ML IVPB SCH (18:00)
[2018-11-15 19:25] LABS: Critical Call Chem Troponin I RESULT DECREASING; Troponin I 3.448 ng/mL (< 0.028)
[2018-11-15] MEDS ORDERED: Ondansetron ODT 4 MG TAB SL PRN (19:29)
[2018-11-15] MEDS ORDERED: Ondansetron PF 4 MG/2 ML Vial IVP PRN (19:29)
[2018-11-15] MEDS ORDERED: Dextrose 5% in Water 1,000 ML IV PRN (19:33)
[2018-11-15] MEDS ORDERED: Senokot S 8.6-50 MG TAB PO PRN (19:33)
[2018-11-15] MEDS ORDERED: HumaLOG 300 UNITS/3 ML VIAL SC PRN (19:33)
[2018-11-15] MEDS ORDERED: Ondansetron ODT 4 MG TAB PO PRN (19:33)
[2018-11-15] MEDS ORDERED: Dextrose 50% Abboject 50 ML SYRINGE SLOW IVP PRN (19:33)
[2018-11-15] MEDS ORDERED: Acetaminophen 650 MG Suppository PR PRN (19:33)
[2018-11-15] MEDS ORDERED: Norepinephrine 8 MG/0.9% NS 250 ML IVPB SCH (19:33)
[2018-11-15] MEDS ORDERED: Albumin 25% 25 GM/100 ML BOT IVPB SCH (20:45)
[2018-11-15 23:10] LABS: Troponin I 4.302 ng/mL (< 0.028)
[2018-11-15 23:35] VITALS: BMI 55.3
--- NOTE | 2018-11-16 03:20 | HP ---
PRIMARY CARE PHYSICIAN: Zachary Fernandez MD. CHIEF COMPLAINT: Weakness and missed dialysis. HISTORY OF PRESENT ILLNESS: This is a 58-year-old white male, assisted resident with a history of morbid obesity, longstanding diabetes, end-stage renal disease, on dialysis who routinely misses dialysis. He was in the hospital for a nosebleed earlier in the month and was last dialyzed the day of discharge, on November 09, he has refused dialysis. Since then, he has reported reason for skipping dialysis that he cannot stay awake. The patient was minimally responsive in the assisted today, so EMS was called. The patient was found to be with hypotensive blood pressures ranging between the 60s to 90s systolic and minimally responsive to stimulation. He was on his 4 L of oxygen that he gets at the assisted. He was saturating okay, but was not able to wake up while they put him on BiPAP and he became much more responsive. The patient was noted to be hyperkalemic of 6.1 in the emergency room and he was given calcium chloride, sodium bicarbonate, Novolin R, dextrose, albuterol sulfate, and SPS orally. The patient was also eventually had to be started on Levophed to keep his blood pressure up. Dr. Fonseca was called from the emergency room and he has arranged for patient to go to dialysis now. The patient is being admitted to the ICU. PAST MEDICAL HISTORY: 1. Coronary artery disease. 2. Chronic systolic congestive heart failure with ejection fraction of 45% to 50% on last echocardiogram done 2 to 3 months ago. 3. Chronic atrial fibrillation, on Eliquis. 4. Diabetes mellitus type 2, insulin dependent. 5. End-stage renal disease, on dialysis. 6. Hypothyroidism. 7. Hypertension. 8. Osteoarthritis. 9. Chronic anemia. 10. Hypoventilation syndrome with obesity. 11. Chronic venous stasis in both lower extremities. PAST SURGICAL HISTORY: 1. Appendectomy. 2. Tonsillectomy. 3. Left leg surgery. 4. Right AV shunt. FAMILY HISTORY: Significant for diabetes. SOCIAL HISTORY: No tobacco, alcohol, or illicit drug use. He lives in a assisted. ALLERGIES: 1. QUINAPRIL. 2. ACCUPRIL. CURRENT MEDICATIONS: 1. Procrit 10,000 units subcutaneous once a week. 2. Lantus 5 units subcutaneous each morning. 3. NovoLog sliding scale a.c. and at bedtime. 4. Eliquis 2.5 mg once a day. 5. Atorvastatin 20 mg once a day at bedtime. 6. Colace 100 mg daily. 7. Gabapentin 100 mg 3 times a day. 8. Levothyroxine 88 mcg daily. 9. Lidocaine adhesive patch one applied daily. 10. Metoprolol succinate 50 mg, possibly once a day, unclear from assisted records. 11. Protonix 40 mg daily. 12. Polyethylene glycol 15 g daily. 13. Augmentin 875/125 one tablet twice a day. REVIEW OF SYSTEMS: The patient is groggy and difficult to get much history from especially with the BiPAP mask on, which limits the accuracy on review of systems. Answers as below; CONSTITUTIONAL: No fevers. No chills. EYES: No vision changes. ENT: No congestion, drainage, or sore throat. PULMONARY: He has had some coughing of thick yellow sputum and had significant shortness of breath he reports yesterday. CARDIOVASCULAR: He reports chest pain with cough only. GASTROINTESTINAL: He denies abdominal pain, nausea, or vomiting. A little bit of diarrhea yesterday. GENITOURINARY: Does no longer produces much urine at all. MUSCULOSKELETAL: He has some bilateral shoulder aches. SKIN: He does not know of any skin rashes or issues. NEUROLOGIC: He denies any numbness, tingling, or focal weakness. PHYSICAL EXAMINATION: VITAL SIGNS: Blood pressure 171/46, pulse 89, respirations 22, O2 saturation 100% on BiPAP, temperature is 97.7 rectally. GENERAL: This is a well-developed, morbidly obese white male, who is sleepy on BiPAP, but arousable. HEENT: Pupils are equal, round, and reactive to light. Oropharynx has some cracking of the lips. His mouth appears clear and no exudate or erythema. NECK: Supple. No lymphadenopathy. No thyroid nodules or enlargement. No masses. CARDIOVASCULAR: Heart has irregularly irregular rhythm, but normal rate. LUNGS: Difficult to auscultate due to his body habitus, but appear clear on my exam. ABDOMEN: Soft, obese, nontender to palpation. Normoactive bowel sounds. No hepatosplenomegaly or other masses palpable. EXTREMITIES: Lymphedema of bilateral lower extremities. SKIN: He has chronic venous stasis changes of his legs, otherwise no rashes noted. NEUROLOGIC: He is able to move all extremities. He has no focal neurologic findings. PSYCHIATRIC: He is sleepy, but arousable and oriented x3. LABORATORY DATA: White blood cell count 12.7, which is up from earlier this month, hemoglobin 7.7, hematocrit 25.2, platelet count 230, neutrophils 79%, bands 7%. Arterial blood gases showed a pH of 7.17 and pCO2 of 68, O2 saturation 93% before the BiPAP was instituted. Complete metabolic panel was notable for a sodium of 132, potassium of 6.1, chloride 93, bicarb 19, anion gap 26, BUN 116, creatinine 7.72, glucose of 174, and albumin of 3.3. The rest was normal. CK-MB was elevated at 12.6 and troponin was elevated at 3.5, which is higher than it has ever been here before. Earlier in the month, it was 0.9. Brain natriuretic peptide is 2715, which is consistent with earlier this month. TSH was normal. Lipase was negative. Lactic acid was 1.5. EKG, I did review the EKG done in the emergency room. This shows atrial fibrillation with an incomplete right bundle branch block and possible right ventricular hypertrophy. The rate was controlled. Chest x-ray, I did review the chest x-ray done in the emergency room along with the radiologist's report. This showed improvement in aeration of the lungs compared to the previous study, but continued cardiomegaly and mild pulmonary vascular congestion, no acute changes. ASSESSMENT: 1. End-stage renal disease, having missed multiple dialysis sessions and now with hyperkalemia and decreased responsiveness. Dr. Fonseca has been consulted. The patient is going to dialysis urgently. 2. Hypotension. This is fluctuated somewhat in the emergency room. It is hard to get a good blood pressure reading on him, possibly due to body habitus. Currently giving Levophed as the patient has clinical evidence of volume overload on exam, so avoiding extra fluids at this time. This is possibly might related to cardiac insult such as elevated troponin. 3. Elevated troponin. The patient appears to had a non-ST elevation myocardial infarction. We will consult Cardiology. The patient is hypotensive currently and requiring pressors. He already received aspirin in the emergency room. He is already on Eliquis as a blood thinner. 4. Diabetes mellitus type 2, insulin dependent. We will resume patient's insulin putting him on mild sliding scale q.a.c. and at bedtime blood sugars. 5. Hypertension, currently hypotensive. We will hold all antihypertensives for now. 6. Gastrointestinal prophylaxis. We will resume patient's Protonix. 7. Code status. I did discuss this with the patient. He is a full code. He reports that his medical power of defense attorney is his contract paralegal. Her name is Za Baca, and she is at the bedside. They believe they have filled out the medical [id number] paperwork, but uncertain we will have palliative care combine and help him with that. Job ID: [id number]
[2018-11-16 05:19] LABS: #Eosinphils 0.1 thou/uL (0.0-0.7); #Lymphocytes 1.4 thou/uL (1.20-3.40); #Monocytes 0.8 thou/uL (0.11-0.59); #Neutrophils 10.5 thou/uL (1.40-6.50); %Basophils 0.2 % (0.0-1.0); %Eosinophils 1.1 % (0.0-10.0); %Lymphocytes 10.5 % (21.0-51.0); %Monocytes 6.4 % (0.0-10.0); %Neutrophils 81.8 % (42.0-75.0); Hemoglobin 7.1 g/dL (14.0-18.0); Mean Corpuscular HGB CONC 30.8 g/dL (32.0-36.0); Mean Corpuscular Hemoglobin 28.6 pg (27.0-31.0); Mean Corpuscular Volume 92.9 fL (78.0-98.0); Mean Platelet Volume 8.2 fL (7.4-10.4); Platelet Count 284 thou/uL (130-400); RBC Distribution Width 17.3 % (11.5-14.5); Red Blood Cell (RBC) Count 2.47 mill/uL (4.70-6.10); White Blood Cell (WBC) Count 12.8 thou/uL (4.8-10.8)
[2018-11-16 05:31] LABS: Anion Gap 21 mmol/L (10-20); BUN (Urea Nitrogen) 65 mg/dL (8.4-25.7); Calc. Creatinine Clearance 36 mL/min (70-130); Calcium 9.6 mg/dL (7.8-10.44); Carbon Dioxide 25 mmol/L (22-29); Chloride 94 mmol/L (98-107); Estimated GFR-MDRD 13; Glucose 160 mg/dL (70-105); Potassium 4.4 mmol/L (3.5-5.1); Sodium 136 mmol/L (136-145)
--- NOTE | 2018-11-16 06:42 | CON ---
DATE OF CONSULTATION: 11/15/2018 TYPE OF CONSULTATION: Nephrology. CONSULTING PHYSICIAN: REASON FOR CONSULTATION: End stage renal disease evaluation and care. REASON FOR ADMISSION: Altered mentation. HISTORY OF PRESENT ILLNESS: This is a 58-year-old male with history of coronary artery disease, atrial fibrillation, type 2 diabetes, hypothyroidism, and end-stage renal disease who came to the hospital with altered mentation. Nephrology consulted, maintenance hemodialysis, potassium was found to be 6.1 and his CO2 was elevated. He is on BiPAP now. PAST MEDICAL HISTORY: Positive for coronary artery disease, atrial fibrillation, type 2 diabetes, hypothyroidism, end-stage renal disease. PAST SURGICAL HISTORY: Appendectomy and tonsillectomy, left leg surgery, and right AV shunt placement. MEDICATIONS: Reviewed. ALLERGIES: 1. QUINAPRIL. 2. ACCUPRIL. SOCIAL HISTORY: No smoking, alcohol, or illicit drug use. FAMILY HISTORY: Positive for diabetes. REVIEW OF SYSTEMS: CONSTITUTIONAL: Negative for weight loss or gain, ability to conduct usual activities. SKIN: Negative for rash, itching. EYES: Negative for double vision, pain. ENT/MOUTH: Negative for nose bleeding, neck stiffness, pain, tenderness. CARDIOVASCULAR: Negative for palpitations, dyspnea on exertion, orthopnea. RESPIRATORY: Negative for shortness of breath, wheezing, cough, hemoptysis, fever or night sweats. GASTROINTESTINAL: Negative for poor appetite, abdominal pain, heartburn, nausea, vomiting, constipation, or diarrhea. GENITOURINARY: Negative for urgency, frequency, dysuria, nocturia. MUSCULOSKELETAL: Negative for pain, swelling. NEUROLOGIC/PSYCHIATRIC: Negative for anxiety, depression. ALLERGY/IMMUNOLOGIC: Negative for skin rash, bleeding tendency. PHYSICAL EXAMINATION: GENERAL: He is morbidly obese male, in no apparent distress. VITAL SIGNS: Temperature , pulse 70, respiratory rate 18, blood pressure 110/70. HEENT: Atraumatic and normocephalic. Oral mucosa is moist. NECK: Supple. CVS: S1 and S2 heard. Rate and rhythm regular. RESPIRATORY: Clear to auscultation. GASTROINTESTINAL: Abdomen is soft. MUSCULOSKELETAL: 1+ edema. DERMATOLOGIC: No skin rash. NEUROLOGIC: Alert and awake. PSYCHIATRIC: Normal mood and affect. LABORATORY DATA: Potassium is 6.1, BUN 116, creatinine is 7.7. ASSESSMENT AND PLAN: 1. End-stage renal disease. Currently on hemodialysis. 2. Edema, controlled. 3. Hyperkalemia. 4. Metabolic acidosis. 5. Anemia. 6. Morbid obesity. 7. Hypertension. Plan is to continue on dialysis as tolerated. Dialysis nurse notified. Job ID: [id number]
--- NOTE | 2018-11-16 09:10 | PDOC.PN ---
- Subjective Encounter Start Date: 11/16/18 Encounter Start Time: 10:10 Subjective: Patient feeling better. Off Bipap. No chest pain. No SOB. Still on -: Levophed but being weaned down. - Objective Resuscitation Status - Order Detail: 11/15/18 18:56 Resuscitation Status Routine Resuscitation Status: FULL: Full Resuscitation Discussed with: Sydney BUTT Reviewed: Yes Vital Signs & Weight: Vital Signs (12 hours) Temp Pulse Resp Pulse Ox 11/16/18 07:31 95 11/16/18 07:29 86 31 H 95 11/16/18 07:00 97.8 F 11/16/18 02:18 82 25 H 99 Weight Weight 343 lb Most Recent Monitor Data Heart Rate from ECG 79 NIBP 119/82 NIBP BP-Mean 94 Respiration from ECG 20 SpO2 99 I&O: 11/15/18 11/16/18 11/17/18 06:59 06:59 06:59 Intake Total 0 Output Total 0 Balance 0 Result Diagrams: 11/16/18 05:06 11/16/18 05:06 Additional Labs: Accuchecks 11/16/18 11/15/18 05:00 15:27 POC Glucose 160 H 174 H Phys Exam - Physical Examination Constitutional: NAD obese HEENT: moist MMs Respiratory: no wheezing, no rales, no rhonchi Cardiovascular: RRR Gastrointestinal: soft, non-tender, positive bowel sounds Neurological: non-focal Psychiatric: normal affect, A&O x 3 Dx/Plan (1) Hyperkalemia Code(s): E87.5 - HYPERKALEMIA Status: Resolved Comment: s/p dialysis last night (2) ESRD (end stage renal disease) on dialysis Code(s): N18.6 - END STAGE RENAL DISEASE; Z99.2 - DEPENDENCE ON RENAL DIALYSIS Status: Chronic Comment: dialysis per nephrology service (3) NSTEMI (non-ST elevated myocardial infarction) Code(s): I21.4 - NON-ST ELEVATION (NSTEMI) MYOCARDIAL INFARCTION Status: Acute Comment: Cardiology consulted (4) Shock Code(s): R57.9 - SHOCK, UNSPECIFIED Status: Acute Comment: likely cardiogenic, possibly related to hyperkalemia and NSTEMI, weaning levophed as tolerated (5) Acute on chronic diastolic heart failure Code(s): I50.33 - ACUTE ON CHRONIC DIASTOLIC (CONGESTIVE) HEART FAILURE Status : Acute Comment: ACC AHA Class C, NYHA Class 3. (6) DM2 (diabetes mellitus, type 2) Status: Chronic Qualifiers: Comment: controlled (7) Acute respiratory failure Code(s): J96.00 - ACUTE RESPIRATORY FAILURE, UNSP W HYPOXIA OR HYPERCAPNIA Status: Resolved Qualifiers: Respiratory failure complication: hypoxia Qualified Code(s): J96.01 - Acute respiratory failure with hypoxia Comment: off Bipap - Plan cont current plan of care * . - Discharge Day Encounter end time: 10:30
[2018-11-16] MEDS: Insulin Glargine 5 UNITS in Pre-Filled Syringe 1 EACH SC SCH (10:13)
[2018-11-16] MEDS: Apixaban 2.5 MG TAB PO SCH (10:13)
[2018-11-16] MEDS ORDERED: Albumin 25% 25 GM/100 ML BOT IVPB SCH (13:45)
[2018-11-16] MEDS: Acetaminophen 325 MG TAB PO PRN (13:47)
[2018-11-16] MEDS: HumaLOG 300 UNITS/3 ML VIAL SC PRN ×2 (15:58→21:08)
[2018-11-16] MEDS: Piperacillin/Tazobactam 2.25 GM in Sodium Chloride 0.9% 100 ML IVPB SCH (17:41)
--- NOTE | 2018-11-16 19:38 | PRG ---
DATE OF SERVICE: 11/16/2018 SUBJECTIVE: Patient was seen and examined at bedside and overnight events noted. Patient denies any shortness of breath or chest pain or palpitation. No history of nausea or vomiting or diarrhea or fever or chills or cramps. OBJECTIVE: GENERAL: This is a morbidly obese male, in no acute distress. VITAL SIGNS: Temperature 97.7, pulse 85, respiratory rate 20, blood pressure 96/55. HEENT: Atraumatic, normocephalic. Oral mucosa is moist NECK: Supple. CARDIOVASCULAR: S1, S2 heard. Rate and rhythm regular. RESPIRATORY: Clear to auscultation. GASTROINTESTINAL: Abdomen is soft. MUSCULOSKELETAL: No tenderness. No edema. DERMATOLOGIC: No skin rash. NEUROLOGIC: Alert and awake and oriented X3. No focal neurologic deficits. Moving all the extremities. PSYCHIATRIC: Mood and affect normal. LABORATORY DATA: Potassium is 4.4, BUN is 65, creatinine is 4.7. ASSESSMENT AND PLAN: 1. End-stage renal disease. Currently on hemodialysis as tolerated. 2. Edema, controlled. 3. Hyperkalemia, better. 4. Metabolic acidosis. 5. Anemia. 6. Morbid obesity. Prognosis is guarded. We will follow. Continue dialysis Tuesday, Tuesday, and Tuesday as tolerated. Job ID: [id number]
[2018-11-16] MEDS ORDERED: rOPINIRole HCl 1 MG TAB PO SCH (21:30)
[2018-11-16] MEDS: traMADol HCl 50 MG TAB PO PRN (21:45)
--- NOTE | 2018-11-17 00:20 | CON ---
DATE OF CONSULTATION: HISTORY OF PRESENT ILLNESS: Mr. Lyons skipped 2 dialysis sessions. He really could not give me a reason other than it was not convenient. He was emergently dialyzed and admitted to the ICU. He says he is back to his baseline. There is no reason to go through his past medical history, family history and social history since he was just discharged from the hospital on the . I have explained to him that if he keeps skipping dialysis, then eventually his potassium will be high enough where he will just suddenly at the group home. He says he understood. PHYSICAL EXAMINATION: GENERAL: On exam, he is in no distress. VITAL SIGNS: Stable. His blood pressure is 105/55. He is given 25 g of 25% albumin to wean him off Levophed. Heart rate is in the 80s, respiratory rates in the 20s, oximetry is 94%. His only complaint was that he was hungry. LUNGS: Clear. HEART: Regular rhythm. ABDOMEN: Soft, nontender. EXTREMITIES: Without asymmetry or edema. LABORATORY DATA: White count 12.8, hemoglobin 7.1, platelets 284. His electrolytes were remarkable for potassium of 4.4, BUN is 65, creatinine 4.79. IMPRESSION: Noncompliance with dialysis. He is stable to go back to the group home. He can receive blood in the D[facility] Center if his hemoglobin remains low. I see no reason to keep him in the critical care unit. Job ID: [id number]
--- NOTE | 2018-11-17 01:01 | CON ---
DATE OF CONSULTATION: HISTORY OF PRESENT ILLNESS: Edmundo Lyons is a 58-year-old white male, who in 2004 underwent cardiac catheterization at [facility] by a [place] orthotic assistant. Ejection fraction was 50%. There was 60% to 70% proximal LAD, 80% to 90% mid LAD , the circumflex had an 80% stenosis. The obtuse marginal had a 70% stenosis. Right coronary artery had 80% lesion and 90% distal lesion and another distal 90% lesion. Please see the consultation by Dr. Tony Rangel, who felt he was not a surgical candidate due to his morbid obesity. He has since developed end-stage renal disease. He has chronic atrial fibrillation and is a [facility] resident at this present time. He has repeatedly refused to go to dialysis and apparently he is not going to dialysis since he was last dialyzed on November 09, when he left the hospital on his last admission. He is more somnolent today and is sent to the emergency room. He has had elevated troponin. PAST MEDICAL HISTORY: Coronary artery disease, chronic atrial fibrillation, hypertension, diabetes, end-stage renal disease. PAST SURGICAL HISTORY: Appendectomy and tonsillectomy. ALLERGIES: ACCUPRIL. MEDICATIONS: 1. Eliquis 2.5 every day. 2. Lipitor 20 mg at bedtime. 3. Colace 100 mg every day. 4. Procrit, every 7 days. 5. Neurontin 100 mg t.i.d. 6. NovoLog insulin. 7. Levaquin 250 every other day. 8. Levothyroxine 88 mcg every day. 9. Metoprolol 12.5 mg every day. 10. Nystatin powder. 11. Protonix 40 every day. 12. Sertraline 25 mg every day. 13. MiraLAX. SOCIAL HISTORY: He does not smoke or drink at the present time. REVIEW OF SYSTEMS: Unremarkable. PHYSICAL EXAMINATION: VITAL SIGNS: Blood pressure 92/55, pulse of 75, atrial fibrillation on the monitor. HEENT: PERRL. NECK: Supple. CHEST: Clear. CARDIAC: S1 and S2 normal without any S3, S4, murmurs. The rhythm is irregularly irregular. ABDOMEN: Morbidly obese. Normal bowel sounds. No tenderness or organomegaly. EXTREMITIES: Revealed trace pretibial edema. NEUROLOGIC: Grossly intact. SKIN: Warm and dry. LABORATORY DATA: EKG revealed atrial fibrillation with incomplete right bundle branch block, possible septal infarction. Hemoglobin 7.1, hematocrit 23.0, white count 12,800, and platelets 284,000. A pH 7.17, pCO2 of 68.4, and pO2 of 83.0. On admission, sodium 132, potassium 6.1, chloride 93, carbon dioxide 26, BUN 116, and creatinine is 7.72. Troponin I is up to 4.3 O2. IMPRESSION: 1. End-stage renal disease, noncompliant with dialysis. 2. Three-vessel coronary artery disease, felt to be inoperable due to his morbid obesity. 3. Probably bms-HA-wvmbxiaav myocardial infarction, although he denies any chest discomfort. 4. Hypertension. 5. Diabetes. 6. Hypercholesterolemia. 7. Last ejection fraction of 45% to 50% on July 2018. 8. Chronic atrial fibrillation. PLAN: Mr. Lyons has been dialyzed and he is apparently much more alert and less dyspneic. Also, his blood pressure has improved; 13 to 14 years ago, Mr. Lyons was found to be an inoperable candidate. I do not see any utility in an invasive evaluation for his coronary artery disease and feel he should continue to be treated medically. Job ID: [id number] [facility]
[2018-11-17] MEDS: Piperacillin/Tazobactam 2.25 GM in Sodium Chloride 0.9% 100 ML IVPB SCH ×3 (01:53→16:48)
[2018-11-17] MEDS: Apixaban 2.5 MG TAB PO SCH (08:48)
[2018-11-17] MEDS: Insulin Glargine 5 UNITS in Pre-Filled Syringe 1 EACH SC SCH (08:49)
[2018-11-17] MEDS: traMADol HCl 50 MG TAB PO PRN ×2 (09:52→16:47)
[2018-11-17] MEDS: Calcium Carbonate 500 MG ChewTAB PO PRN (10:32)
--- NOTE | 2018-11-17 11:21 | PDOC.PN ---
- Subjective Encounter Start Date: 11/17/18 Encounter Start Time: 09:30 -: old records requested/rev pt is getting HD, he is hypotensive, on levophed, his culture grew proteus, he has epigastric pain, Patient seen and examined. No overnight events - Objective Resuscitation Status - Order Detail: 11/15/18 18:56 Resuscitation Status Routine Resuscitation Status: FULL: Full Resuscitation Discussed with: Patient MAR Reviewed: Yes Vital Signs & Weight: Vital Signs (12 hours) Temp Pulse Ox 11/17/18 10:49 99 11/17/18 08:00 97.7 F 96 11/17/18 04:00 97.6 F 11/17/18 00:00 97.8 F Weight Weight 343 lb Most Recent Monitor Data Heart Rate from ECG 94 NIBP 104/67 NIBP BP-Mean 79 Respiration from ECG 16 SpO2 94 I&O: 11/16/18 11/17/18 11/18/18 06:59 06:59 06:59 Intake Total 1348.8 220 Output Total 0 0 Balance 1348.8 220 Result Diagrams: 11/16/18 05:06 11/16/18 05:06 Additional Labs: Accuchecks 11/17/18 11/17/18 11/16/18 08:02 06:13 21:09 POC Glucose 108 115 H 152 H 11/16/18 15:48 POC Glucose 165 H EKG Reviewed by me: Yes (afib) Phys Exam - Physical Examination Constitutional: NAD chronically ill HEENT: PERRLA, moist MMs, sclera anicteric Neck: no JVD, supple Respiratory: no wheezing, no rales, no rhonchi limited due to obesity+ Cardiovascular: no significant murmur, irregular Gastrointestinal: soft, positive bowel sounds morbid obesity+ Musculoskeletal: edema present Neurological: moves all 4 limbs Lymphatic: no nodes Psychiatric: normal affect Skin: no rash, normal turgor Dx/Plan (1) NSTEMI (non-ST elevated myocardial infarction) Code(s): I21.4 - NON-ST ELEVATION (NSTEMI) MYOCARDIAL INFARCTION Status: Acute Comment: (2) Sepsis associated hypotension Code(s): A41.9 - SEPSIS, UNSPECIFIED ORGANISM; I95.9 - HYPOTENSION, UNSPECIFIED Status: Acute (3) Anemia of renal disease Code(s): D63.1 - ANEMIA IN CHRONIC KIDNEY DISEASE Status: Chronic Comment: stable (4) Atrial fibrillation Code(s): I48.91 - UNSPECIFIED ATRIAL FIBRILLATION Status: Chronic Qualifiers: (5) CAD (coronary artery disease) Code(s): I25.10 - ATHSCL HEART DISEASE OF [place] CORONARY ARTERY W/O ANG PCTRS Status: Chronic Qualifiers: Coronary Disease-Associated Artery/Lesion type: [place] artery [place] vs. transplanted heart: [place] heart Associated angina: without angina Qualified Code(s): I25.10 - Atherosclerotic heart disease of [place] coronary artery without angina pectoris Comment: stable (6) Chronic systolic heart failure Code(s): I50.22 - CHRONIC SYSTOLIC (CONGESTIVE) HEART FAILURE Status: Chronic Comment: (7) DM2 (diabetes mellitus, type 2) Status: Chronic Qualifiers: Comment: (8) ESRD (end stage renal disease) on dialysis Code(s): N18.6 - END STAGE RENAL DISEASE; Z99.2 - DEPENDENCE ON RENAL DIALYSIS Status: Chronic Comment: dialysis per nephrology service (9) Gout Code(s): M10.9 - GOUT, UNSPECIFIED Status: Chronic Qualifiers: Gout site: unspecified site Comment: No Exacerbation noted. (10) Hypertension Code(s): I10 - ESSENTIAL (PRIMARY) HYPERTENSION Status: Chronic Qualifiers: Hypertension type: essential hypertension (11) Lymphedema Code(s): I89.0 - LYMPHEDEMA, NOT ELSEWHERE CLASSIFIED Status: Chronic (12) Morbid obesity due to excess calories Code(s): E66.01 - MORBID (SEVERE) OBESITY DUE TO EXCESS CALORIES Status: Chronic (13) Obesity hypoventilation syndrome Code(s): E66.2 - MORBID (SEVERE) OBESITY WITH ALVEOLAR HYPOVENTILATION Status : Chronic Comment: CPAP at night. (14) Paroxysmal a-fib Code(s): I48.0 - PAROXYSMAL ATRIAL FIBRILLATION Status: Chronic Comment: on Eliquis (15) Hyperkalemia Code(s): E87.5 - HYPERKALEMIA Status: Resolved Comment: - Plan cont current plan of care, continue antibiotics * will consult ID for proteus bacteremia * continue zosyn * medication reviewed as below * symptomatic treatment * levophed wean off as tolerated * continue supportive care * HD as per nephrology * all consultants recommendation appreciated. * add tums as needed Review of Systems - Review of Systems Constitutional: negative: fever, chills, sweats, weakness, malaise, other Eyes: negative: Pain, Vision Change, Conjunctivae Inflammation, Eyelid Inflammation, Redness, Other ENT: negative: Ear Pain, Ear Discharge, Nose Pain, Nose Discharge, Nose Congestion, Mouth Pain, Mouth Swelling, Throat Pain, Throat Swelling, Other Respiratory: negative: Cough, Dry, Shortness of Breath, Hemoptysis, SOB with Excertion, Pleuritic Pain, Sputum, Wheezing Cardiovascular: negative: chest pain, palpitations, orthopnea, paroxysmal nocturnal dyspnea, edema, light headedness, other Gastrointestinal: Abdominal Pain. negative: Nausea, Vomiting, Diarrhea, Constipation, Melena, Hematochezia, Other Genitourinary: negative: Dysuria, Frequency, Incontinence, Hematuria, Retention , Other Musculoskeletal: negative: Neck Pain, Shoulder Pain, Arm Pain, Back Pain, Hand Pain, Leg Pain, Foot Pain, Other Skin: negative: Rash, Lesions, Freddy, Bruising, Other - Medications/Allergies Allergies/Adverse Reactions: Allergies Allergy/AdvReac Type Severity Reaction Status Date / Time quinapril HCl [From Accupril] Allergy Verified 11/05/18 03:21 Medications: Current Medications Acetaminophen (Tylenol) 650 mg PO Q4H PRN PRN Reason: Headache/Fever/Mild Pain (1-3) Last Admin: 11/16/18 13:47 Dose: 650 mg Acetaminophen (Tylenol) 650 mg ID Q4H PRN PRN Reason: Headache/Fever/Mild Pain (1-3) Apixaban (Eliquis) 2.5 mg PO DAILY [facility] Last Admin: 11/17/18 08:48 Dose: 2.5 mg Calcium Carbonate (Tums) 1,000 mg PO Q4H PRN PRN Reason: Heartburn or Indigestion Last Admin: 11/17/18 10:32 Dose: 1,000 mg Dextrose/Water (Dextrose 50%) 25 gm SLOW IVP PRN PRN PRN Reason: Hypoglycemia Glucagon (Glucagon) 1 mg IM PRN PRN PRN Reason: Hypoglycemia Dextrose/Water (D5w) 1,000 mls @ 0 mls/hr IV .Q0M PRN PRN Reason: Hypoglycemia Insulin Glargine 5 units/ (Miscellaneous Medication) 0.05 mls @ 0 mls/hr SC QAM [facility] Last Admin: 11/17/18 08:49 Dose: Not Given Norepinephrine Bitartrate (Levophed) 250 mls @ 0 mls/hr IVPB INF [facility]; Protocol Last Admin: 11/16/18 07:38 Dose: 250 mls Piperacillin Sod/Tazobactam (Sod 2.25 gm/ Sodium Chloride) 100 mls @ 200 mls/ hr IVPB 0200,1000,1800 [facility] Last Admin: 11/17/18 08:48 Dose: 100 mls Insulin Human Lispro (Humalog) 0 units SC .MILD SLIDING SCALE PRN PRN Reason: Mild Correctional Scale Last Admin: 11/16/18 21:08 Dose: 2 units Insulin Human Lispro (Humalog) 0 units SC .BEDTIME SLIDING SC PRN PRN Reason: Bedtime Correctional Scale Ondansetron HCl (Zofran Odt) 4 mg PO Q6H PRN PRN Reason: Nausea/Vomiting Ondansetron HCl (Zofran) 4 mg IVP Q6H PRN PRN Reason: Nausea/Vomiting Pantoprazole Sodium (Protonix) 40 mg PO DAILY [facility] Last Admin: 11/17/18 08:48 Dose: 40 mg Senna/Docusate Sodium (Senokot S) 2 tab PO BID PRN PRN Reason: Constipation Tramadol HCl (Ultram) 50 mg PO Q6HR PRN PRN Reason: Pain 4-6 Last Admin: 11/17/18 09:52 Dose: 50 mg
--- NOTE | 2018-11-17 11:27 | PRG ---
DATE OF SERVICE: 11/17/2018 SUBJECTIVE: Patient was seen and examined at bedside and overnight events noted. Patient denies any shortness of breath or chest pain or palpitation. No history of nausea or vomiting or diarrhea or fever or chills or cramps. OBJECTIVE: GENERAL: This is a morbidly obese male, in no apparent distress. VITAL SIGNS: Temperature 97.7, pulse 94, respiratory rate 16. Blood pressure 104/67. HEENT: Atraumatic, normocephalic. Oral mucosa is moist NECK: Supple. CARDIOVASCULAR: S1, S2 heard. Rate and rhythm regular. RESPIRATORY: Clear to auscultation. GASTROINTESTINAL: Abdomen is soft. MUSCULOSKELETAL: No tenderness. No edema. DERMATOLOGIC: No skin rash. NEUROLOGIC: Alert and awake and oriented X3. No focal neurologic deficits. Moving all the extremities. PSYCHIATRIC: Mood and affect normal. LABORATORY DATA: Not done. ASSESSMENT AND PLAN: 1. End-stage renal disease. Continue on hemodialysis as tolerated. 2. Edema. We will remove fluid, dialysis. 3. Hyperkalemia, limit potassium intake. 4. Metabolic acidosis. 5. Anemia. 6. Morbid obesity. 7. We will continue dialysis as tolerated. Job ID: [id number]
[2018-11-17 11:36] LABS: HBSAg Index 0.23 S/CO (0-0.99); Hep B Surf Ag Non-Reactive S/CO (NonReactive)
--- NOTE | 2018-11-17 21:27 | CON ---
DATE OF CONSULTATION: 11/17/2018 REASON FOR CONSULTATION: Bacteremia. HISTORY OF PRESENT ILLNESS: A 58-year-old, known to me from multiple prior visits both here as well as [facility]. He has a history of morbid obesity, type 2 diabetes with lymphedema in lower extremities and recurrent episodes of cellulitis, episodes of acute renal insufficiency on chronic and now on hemodialysis for end-stage renal disease with established AV fistula in the right upper extremity. He also has a history of Coumadin-induced skin necrosis in the thighs, which has healed. He is currently on Eliquis for management of atrial fibrillation, stroke prevention. He now presents and is admitted to the ICU with change in mental status. He is currently admitted to a local half-way and EMS was activated and brought to the hospital. On arrival, he was hypotensive, systolic in the 60s to 90s, minimally responsive. He was placed on BiPAP and became more responsive. He was noted to be hyperkalemic and given proper treatment in the emergency room, had to be started on Levophed and transferred to the ICU. He is fully awake now. He has been dialyzed I believe once and denies any headaches. No visual symptoms, sore throat, odynophagia, or dysphagia. He has been coughing quite a bit with some sputum production, which is light yellow. No chest pain. No abdominal pain. No diarrhea. He has minimal urinary output without any symptoms. Chronic joint symptoms related to osteoarthrosis. PAST MEDICAL HISTORY: Morbid obesity, coronary artery disease, systolic CHF, atrial fibrillation, type 2 diabetes, end-stage renal disease, on hemodialysis; hypothyroidism; prior Coumadin-associated skin necrosis, which has healed; recurrent episodes of cellulitis in lower extremities. He has had bacteremia in the past in 2015 and 2016 with Pseudomonas aeruginosa, felt to be originating from the skin ulcer and also from group B streptococcus, felt to be originating from the skin as well. PAST SURGICAL HISTORY: Appendectomy, tonsillectomy, left knee surgery, AV fistula placement. FAMILY HISTORY: Type 2 diabetes. SOCIAL HISTORY: Never smoker, currently in the half-way. ALLERGIES: QUINAPRIL AND ACCUPRIL. CURRENT MEDICATIONS: Include p.r.n. medications, 1. Eliquis. 2. Insulin. 3. Levophed. 4. Zofran. 5. Pantoprazole. 6. Zosyn. PHYSICAL EXAMINATION: VITAL SIGNS: T-max 98.6, blood pressure 93/68, pulse 76, respirations 16 to 22, O2 saturation 98%. SKIN: Shows areas of hyperpigmentation in the lower extremities without inflammatory changes. The patient has a functioning AV fistula in the right upper extremity. He also has a triple-lumen catheter in the right groin inserted on admission. HEENT: Numerous missing teeth with the remainder ones with quite a bit of decay. Moist mucosa. No lesions. NECK: Supple. No jugular vein distention. LUNGS: Symmetric breath sounds. Light wheezing expiratory heard in both hemithoraces. HEART: S1, S2. Diminished heart sounds. No obvious murmurs. ABDOMEN: With a very prominent panniculus, difficult to examine, but no tenderness. No obvious masses. No bladder distention. EXTREMITIES: No joint inflammatory activity. He is able to move extremities on command. Mobility impaired by his weight and body mass. NEURO: He is awake, oriented. Little bit groggy, but he follows commands. LABORATORY DATA: White cell count 12.7 and 12.8, hemoglobin 7.7 and 7.1, platelets 230, 79% neutrophils, 8% lymphocytes. PH 7.17, pCO2 of 68, pO2 of 83 and chemistry with creatinine of 4.79, chloride 94, potassium 4.4, glucose 160. Bilirubin 0.7, AST 33, ALT 25, alkaline phosphatase 113, albumin 3.3, globulin 4.0. Lipase 69. TSH 1.8. Troponin 3.4 and 4.3. Microbiology with Proteus species from one set of blood cultures from right common femoral vein sample. IMAGING STUDIES: We have a chest x-ray from admission. This shows improved aeration of lungs compared to prior study, cardiomegaly, mild pulmonary vascular congestion persists. ASSESSMENT: 1. Morbid obesity, type 2 diabetes, and end-stage renal disease with irregular dialysis. 2. Altered mental status. 3. Proteus species bacteremia, 1/2 sets obtained on admission. DISCUSSION: The differential diagnosis includes respiratory infection, not fully documented in the plain films versus an intraabdominal inflammatory process, pyocystitis. The skin process is less likely in the absence of evidence of ulceration or inflammatory changes in the skin at this point in time. I do not think he has any decubitus ulcers in the back, although I did not turn him, but no note was made of decubitus ulcers by the nurse. We will wait for the final identification of the organism and see how many sets are positive and then decide if he is going to need imaging studies of his abdomen and pelvis. Patients with diabetes are notorious to have decreased sensation and sometimes overt inflammatory processes in the abdominal area are not associated with a lot of symptoms in those patients and only identified on imaging study when they sometimes present with bacteremia. Job ID: [id number]
[2018-11-18] MEDS: Piperacillin/Tazobactam 2.25 GM in Sodium Chloride 0.9% 100 ML IVPB SCH ×3 (01:40→17:04)
[2018-11-18] MEDS ORDERED: Sodium Chloride 0.65% Nasal 44 ML BOT EA NARE PRN (06:34)
[2018-11-18] MEDS: HumaLOG 300 UNITS/3 ML VIAL SC PRN (06:36)
[2018-11-18] MEDS: Insulin Glargine 5 UNITS in Pre-Filled Syringe 1 EACH SC SCH (06:37)
[2018-11-18] MEDS: traMADol HCl 50 MG TAB PO PRN (06:40)
--- NOTE | 2018-11-18 08:51 | PRG ---
DATE OF SERVICE: 11/18/2018 SUBJECTIVE: The patient is awake, alert, in no distress. OBJECTIVE: VITAL SIGNS: On exam, temperature is 97.1, pulse is 110, blood pressure is 90/50, O2 saturation 96%. HEENT: Unremarkable. NECK: No JVD. LUNGS: Clear. CARDIAC: S1 and S2, regular. ABDOMEN: Morbidly obese. EXTREMITIES: Edematous. ASSESSMENT: 1. Status post respiratory failure related to fluid overload from skipping dialysis. 2. Renal failure-chronic. PLAN: This patient can be transferred out to the floor to continue present care. He is probably nearing discharge back to the halfway as long as infection issues are addressed. Job ID: [id number]
--- NOTE | 2018-11-18 09:00 | PRG ---
DATE OF SERVICE: 11/18/2018 SUBJECTIVE: The patient is seen and examined at the bedside. He seems to be doing better. He does not have much complaints to offer. He is not in any pain. OBJECTIVE: VITAL SIGNS: Blood pressure is 98/50, pulse is 110, respirations 18, O2 saturation is 96% on O2. HEENT: Head is atraumatic and normocephalic. Eyes are PERRLA. Sclerae nonicteric. Conjunctivae pinkish. Oral mucosa is somewhat dry. NECK: Supple, obese. LUNGS: Breath sounds somewhat diminished at both bases. HEART: S1, S2 normal. No S3. No S4. Just tachycardic. ABDOMEN: Obese, soft, nontender to palpation. EXTREMITIES: 1+ peripheral edema similar bilaterally on lower extremities. NEUROLOGICAL: He is alert and oriented x4. There is no any motor or sensory deficit present. Cranial nerves are intact. LABORATORY DATA: Labs showed glycemia ranging from 86 to 179. Microbiology; 1/2 blood cultures positive for Proteus mirabilis, which is almost pansensitive except for Cipro, ampicillin, and trimethoprim sulfamethoxazole. IMPRESSION: 1. Awz-NU-wfqhiqldh myocardial infarction. 2. Sepsis associated hypotension. 3. Anemia of renal disease. 4. Atrial fibrillation, chronic. 5. Coronary artery disease, stable, chronic. 6. Chronic systolic heart failure. 7. Morbid obesity. 8. Hyperkalemia, resolved. DISCUSSION: The patient was seen by Dr. Clay yesterday and he recommends to do some abdominal imaging to find out more about possible source of bacterial growth in 1/2 blood cultures. For now, we will continue Zosyn. He will be managed by [facility] killer in terms of his hemodialysis. Job ID: [id number]
[2018-11-18] MEDS: Apixaban 2.5 MG TAB PO SCH (09:20)
[2018-11-18] MEDS ORDERED: ISOVUE-370 76%-LOCM 1 ML ONE (10:16)
--- NOTE | 2018-11-18 14:41 | PDOC.CTH ---
Cardiology Progress Note - Subjective No - Objective Vital Signs Temp Pulse Ox 11/18/18 12:00 98.1 F 11/18/18 08:00 92 L 11/18/18 07:00 97.1 F L 11/18/18 04:00 98.5 F Weight 343 lb 11/17/18 11/18/18 11/19/18 06:59 06:59 06:59 Intake Total 1348.8 1950 1280 Output Total 0 0 0 Balance 1348.8 1950 1280 - Physical Examination General/Neuro: alert & oriented x3, NAD Neck: no JVD present Lungs: CTA, unlabored respirations Heart: RRR Abdomen: NT/ND Extremities: + edema B (1+) - Telemetry Telemetry Rhythm: Afib HR 80s. - Labs Result Diagrams: 11/16/18 05:06 11/16/18 05:06 Troponin/CKMB CK-MB (CK-2) 12.6 ng/mL (0-6.6) H* 11/15/18 15:47 Troponin I 4.302 ng/mL (< 0.028) H* 11/15/18 22:34 - Assessment/Plan 1. ESRD 2. Non compliance 3. NSTEMI 4. HTN 5. Chronic afib. 6, Innoperable CAD. PLAN: - Continue medical therapy. - No new recs.
--- NOTE | 2018-11-18 15:42 | CT ---
CT ABDOMEN WITH CONTRAST CT PELVIS WITH CONTRAST: DATE: 11/18/2018. TIME: 11:04 a.m. HISTORY: A 58-year-old male with sepsis and abnormal lab work. COMPARISON: 05/13/2011. TECHNIQUE: IV injection of iodinated contrast media: 100 mL of Isovue 370. Oral contrast media: Redicat. FINDINGS: Limited evaluation because of very large body habitus. There is a new finding of moderate to large a mount of free fluid within the upper peritoneal cavity surrounding the liver and spleen, and a very l arge amount of fluid along the left lateral aspect of the abdominal cavity, displacing the descending colon, hepatic flexure, and small bowel loops medially. This free fluid spills over into a large fr ee fluid collection at the anterior inferior aspect of the peritoneal cavity at the pelvic inlet. So me of this free fluid extends into the fat-containing ventral hernia sac, which is displaced to the l eft by the weight of the left-sided fluid collection. The attenuation of the fluid appears high, sug gesting that it could be blood, but this is unreliable because of extensive streak artifact due to th e extremely large body habitus. The spleen is 16.5 x 8 x 13.5 cm. Liver margins appear mildly nodul ar. No discrete intrahepatic mass lesion is identified. Atherosclerotic calcification without aneu rysm of the abdominal aorta. No hydronephrosis bilaterally. Large number of bilateral renal cysts, which have grown in size and number compared to the [address]. No hydronephrosis. It is difficult to evaluate for renal cell carcinoma because of the poor image quality. No adrenal mass. Unremarkable pancreas. No small bowel dilation. Those portions of the colon that abut the fluid are difficult to evaluate for colonic diverticulitis. Small region of consolidation at medial base of right lower lo be with air bronchogram. No pneumoperitoneum. Cardiomegaly with 4-chamber dilation. IMPRESSION: 1. Large amount of free fluid throughout the abdominal cavity, currently mostly shifted to the left side of the upper and mid abdomen, and in the anterior lower abdomen. It is difficult to determine w hether this is ascites or hemoperitoneum. Recommend correlation with serum hemoglobin and hematocrit . 2. Splenomegaly. 3. Large number of bilateral renal cysts of varying sizes. It is difficult to evaluate for renal ce ll carcinoma among these cysts, because of the poor image resolution. 4. Small region of consolidation in the right lower lobe, either atelectasis or pneumonia. 5. No discrete abscess identified. DARRELL Huber POS: ROSANNA
--- NOTE | 2018-11-19 00:05 | EKG ---
Test Reason : Blood Pressure : / mmHG Vent. Rate : 095 BPM Atrial Rate : 111 BPM P-R Int : 000 ms QRS Dur : 114 ms QT Int : 342 ms P-R-T Axes : 000 139 090 degrees QTc Int : 429 ms Atrial fibrillation Incomplete right bundle branch block Possible Right ventricular hypertrophy Septal infarct , age undetermined Possible Lateral infarct , age undetermined Abnormal ECG Confirmed by AMELIA VILLASENOR, BEBE ([id number]), technical writer and editor RENÉ ALEXANDER ([id number]) on 11/19/2018 12:04:16 AM Referred By: Confirmed By:BEBE CISNEROS MD
[2018-11-19] MEDS: Piperacillin/Tazobactam 2.25 GM in Sodium Chloride 0.9% 100 ML IVPB SCH ×3 (02:00→20:51)
[2018-11-19] MEDS: Acetaminophen 325 MG TAB PO PRN ×3 (04:02→15:13)
[2018-11-19] MEDS: HumaLOG 300 UNITS/3 ML VIAL SC PRN ×3 (06:02→19:39)
[2018-11-19] MEDS: Ondansetron PF 4 MG/2 ML Vial IVP PRN (08:58)
[2018-11-19] MEDS: Nystatin Powder 15 GM BOT TOP SCH ×2 (08:59→20:52)
[2018-11-19] MEDS: Insulin Glargine 5 UNITS in Pre-Filled Syringe 1 EACH SC SCH (09:02)
--- NOTE | 2018-11-19 09:08 | PRG ---
DATE OF SERVICE: 11/19/2018 SUBJECTIVE: The patient remains in the CCU. He has developed profuse nasal bleeding from the right naris. He last had dialysis yesterday. Of note, he is currently taking Eliquis. OBJECTIVE: VITAL SIGNS: Temperature 98.6, pulse 123, blood pressure 89/58. A 24-hour intake 2575, output 200+ what was removed by dialysis yesterday. HEENT: Unremarkable except for profuse bleeding from the right nostril. NECK: No JVD. LUNGS: Clear anteriorly. CARDIAC: S1 and S2, regular. ABDOMEN: Obese, soft, and nontender. EXTREMITIES: No edema. LABORATORY DATA: He had no labs today. ASSESSMENT: 1. Acute on chronic renal failure - noncompliant with dialysis. 2. Nasal bleeding. 3. Chronically as anticoagulated for atrial fibrillation. PLAN: 1. Hold the Eliquis. 2. Put a nasal tampon in the right nostril, which needs stated for 24 hours. 3. May need ENT consultation if nasal bleeding does not stop. 4. Recheck labs tomorrow. Job ID: [id number]
[2018-11-19] MEDS ORDERED: Polyethylene Glycol 3350 17 GM Packet PO PRN (10:06)
[2018-11-19] MEDS ORDERED: Lorazepam 0.5 MG TAB PO PRN (10:06)
[2018-11-19] MEDS ORDERED: Epoetin (ESRD) 10,000 UNITS/ML VIAL SC SCH (10:15)
--- NOTE | 2018-11-19 10:39 | PRG ---
DATE OF SERVICE: 11/19/2018 SUBJECTIVE: The patient is seen and examined at bedside. He is in A12. He started having some nosebleed. The packing was done and his bleeding is improved. His apixaban was stopped. OBJECTIVE: VITAL SIGNS: Blood pressure is 109/82, respiratory rate is 23, and heart rate is 114. HEENT: His eyes are PERRLA. Sclerae are nonicteric. Conjunctivae palish. His right nose is packed. NECK: Supple. LUNGS: Breath sounds somewhat diminished at both bases. HEART: S1 and S2. Tachycardic. No S3. No S4. ABDOMEN: Obese and nontender. Bowel sounds are present. No organomegaly. EXTREMITIES: 1 to 2+ peripheral edema similar bilaterally on lower extremities. NEUROLOGIC: He follows my commands. He moves his all 4 extremities. There are no any sensory or motor deficits present. Cranial nerves are intact. LABORATORY DATA: CBC, PTT, INR, and BMP are pending. CT of the abdomen and pelvis showed some large amount of free fluid throughout the abdominal cavity. 1. Unclear whether this is hemoperitoneum or ascites. 2. Splenomegaly. 3. Large number of bilateral renal cysts of varying size. 4. Small region of consolidation in the right lower lobe, either atelectasis or pneumonia. IMPRESSION: 1. Pog-SD-buhkvcclc myocardial infarction. 2. Sepsis associated hypotension. 3. Anemia of chronic disease and exacerbates by his nosebleeds now. 4. Chronic atrial fibrillation with rapid ventricular response. 5. Coronary artery disease, inoperable. 6. Chronic systolic heart failure. 7. Morbid obesity. 8. Hyperkalemia, resolved. 9. Possible internal bleeding based on the CT findings. PLAN: Going to obtain PT, INR, CBC and transfuse him p.r.n. Restart his beta jo for better ventricular control. We will put him back on his home medications. We will watch his bleeding and as I mentioned above, apixaban was stopped. Continue Zosyn. On admission before, he is growing 1 out of 2 Proteus mirabilis in his blood cultures. The CT did not show any inflammatory process in his abdomen, but per recommendation of ID, we will continue that antibiotic. We will keep him in intensive care unit, watch his bleeding and make decision about further steps when the situation progresses. Job ID: [id number]
[2018-11-19 10:40] LABS: INR-International Normal Ratio 2.1; Prothrombin Time 23.2 SEC (12.0-14.7)
[2018-11-19 10:41] LABS: PTT 43.1 SEC (22.9-36.1)
[2018-11-19 10:44] LABS: Anion Gap 16 mmol/L (10-20); BUN (Urea Nitrogen) 51 mg/dL (8.4-25.7); Calc. Creatinine Clearance 45 mL/min (70-130); Calcium 9.4 mg/dL (7.8-10.44); Carbon Dioxide 26 mmol/L (22-29); Chloride 94 mmol/L (98-107); Estimated GFR-MDRD 16; Glucose 163 mg/dL (70-105); Sodium 132 mmol/L (136-145)
--- NOTE | 2018-11-19 11:18 | PDOC.CTH ---
Cardiology Progress Note - Subjective Nose bleed since yesterday, Controlled at this point. Currently no chest pain. - Objective Vital Signs Temp 11/19/18 04:00 98.6 F 11/19/18 00:00 98.8 F Weight 343 lb 11/18/18 11/19/18 11/20/18 06:59 06:59 06:59 Intake Total 1950 2575 Output Total 0 0 Balance 1950 2575 - Physical Examination General/Neuro: alert & oriented x3 Neck: no JVD present Lungs: CTA, unlabored respirations Heart: RRR Abdomen: NT/ND Extremities: + edema B (2+) - Telemetry Telemetry Rhythm: NSR - Labs Result Diagrams: 11/16/18 05:06 11/19/18 10:05 Troponin/CKMB CK-MB (CK-2) 12.6 ng/mL (0-6.6) H* 11/15/18 15:47 Troponin I 4.302 ng/mL (< 0.028) H* 11/15/18 22:34 - Assessment/Plan 1. ESRD 2. Non compliance 3. NSTEMI 4. HTN 5. Chronic afib, currently in RVR 6, Inoperable CAD. 7. Anemia PLAN: - RVR likely from anemia. - Borderline hypotensive. - May be related to worsening anemia and possibly bleeding, he has a nose bleed but also has all this fluid in his abdomen which is most likely ascitis given his history of non compliance with HD. - HH already ordered and blood transfusions as well. - Would recommend to keep Hgb above 10 if possible. - Will hold off on trying to rate control him until Hgb resulted and anemia improved. - Will follow.
[2018-11-19 11:32] LABS: #Eosinphils 0.1 thou/uL (0.0-0.7); #Lymphocytes 1.6 thou/uL (1.20-3.40); #Monocytes 0.9 thou/uL (0.11-0.59); #Neutrophils 12.4 thou/uL (1.40-6.50); %Basophils 0.3 % (0.0-1.0); %Eosinophils 0.9 % (0.0-10.0); %Lymphocytes 10.5 % (21.0-51.0); %Monocytes 5.7 % (0.0-10.0); %Neutrophils 82.6 % (42.0-75.0); Basophilic Stippling SLIGHT = 1-2 cells (100X) (None Seen); Hemoglobin 6.1 g/dL (14.0-18.0); Hypochromia MODERATE=16-30 cells (100X) (0-5/hpf); MDiff Complete? YES; Mean Corpuscular HGB CONC 29.8 g/dL (32.0-36.0); Mean Corpuscular Hemoglobin 27.7 pg (27.0-31.0); Mean Platelet Volume 8.5 fL (7.4-10.4); Microcytosis SLIGHT = 6-15 cells (100X) (0-5/hpf); Platelet Count 285 thou/uL (130-400); Platelet Morphology Comment Appears Adequate; Polychromasia SLIGHT = 2-3 cells (100X) (0-2/hpf); RBC Distribution Width 17.9 % (11.5-14.5); Red Blood Cell (RBC) Count 2.18 mill/uL (4.70-6.10); Stomatocytes SLIGHT = 2-5 cells (100X) (0-1/hpf)
[2018-11-19] MEDS: Sevelamer Carbonate 800 MG TAB PO SCH ×2 (13:26→20:51)
--- NOTE | 2018-11-19 14:14 | PRG ---
DATE OF SERVICE: 11/19/2018 SUBJECTIVE: Patient was seen and examined at bedside and overnight events noted. Patient denies any shortness of breath or chest pain or palpitation. No history of nausea or vomiting or diarrhea or fever or chills or cramps. OBJECTIVE: GENERAL: This is a morbidly obese male in no apparent distress. VITAL SIGNS: Temperature 97.9. Heart rate . Blood pressure 124/94. HEENT: Atraumatic, normocephalic. Oral mucosa is moist NECK: Supple. CARDIOVASCULAR: S1, S2 heard. Rate and rhythm regular. RESPIRATORY: Clear to auscultation. GASTROINTESTINAL: Abdomen is soft. MUSCULOSKELETAL: No tenderness. No edema. DERMATOLOGIC: No skin rash. NEUROLOGIC: Alert and awake and oriented X3. No focal neurologic deficits. Moving all the extremities. PSYCHIATRIC: Mood and affect normal. LABORATORY DATA: Potassium is 4.0, BUN is 51, creatinine is 3.8. ASSESSMENT AND PLAN: 1. End-stage renal disease. Continue on dialysis Tuesday, Tuesday, and Tuesday. 2. Edema. 3. Hyperkalemia. Limit potassium intake. 4. Metabolic acidosis with anemia. 5. Morbid obesity. 6. Continue on dialysis as tolerated. Job ID: [id number]
[2018-11-19] MEDS: Gabapentin 100 MG CAP PO SCH ×2 (15:13→20:51)
[2018-11-19 16:11] LABS: Hemoglobin 7.8 g/dL (14.0-18.0)
[2018-11-19] MEDS: Atorvastatin Calcium 20 MG TAB PO SCH (20:51)
[2018-11-19] MEDS ORDERED: Ropinirole Hcl [Ropinirole Er] 4 MG PO SCH (21:00)
[2018-11-19 22:32] LABS: Hemoglobin 7.6 g/dL (14.0-18.0)
[2018-11-20] MEDS: Piperacillin/Tazobactam 2.25 GM in Sodium Chloride 0.9% 100 ML IVPB SCH ×3 (01:59→17:29)
[2018-11-20 04:07] LABS: #Eosinphils 0.2 thou/uL (0.0-0.7); #Lymphocytes 1.2 thou/uL (1.20-3.40); #Monocytes 0.7 thou/uL (0.11-0.59); #Neutrophils 9.9 thou/uL (1.40-6.50); %Basophils 0.3 % (0.0-1.0); %Lymphocytes 10.2 % (21.0-51.0); %Monocytes 5.6 % (0.0-10.0); %Neutrophils 81.7 % (42.0-75.0); Hemoglobin 7.1 g/dL (14.0-18.0); Mean Corpuscular HGB CONC 31.1 g/dL (32.0-36.0); Mean Corpuscular Hemoglobin 29.4 pg (27.0-31.0); Mean Corpuscular Volume 94.3 fL (78.0-98.0); Mean Platelet Volume 8.4 fL (7.4-10.4); Platelet Count 225 thou/uL (130-400); RBC Distribution Width 16.8 % (11.5-14.5); Red Blood Cell (RBC) Count 2.41 mill/uL (4.70-6.10); White Blood Cell (WBC) Count 12.2 thou/uL (4.8-10.8)
[2018-11-20 04:09] LABS: INR-International Normal Ratio 1.8; PTT 41.6 SEC (22.9-36.1); Prothrombin Time 20.9 SEC (12.0-14.7)
[2018-11-20 04:22] LABS: Anion Gap 19 mmol/L (10-20); BUN (Urea Nitrogen) 43 mg/dL (8.4-25.7); Calc. Creatinine Clearance 47 mL/min (70-130); Calcium 9.2 mg/dL (7.8-10.44); Carbon Dioxide 26 mmol/L (22-29); Chloride 95 mmol/L (98-107); Estimated GFR-MDRD 17; Glucose 133 mg/dL (70-105); Potassium 3.7 mmol/L (3.5-5.1); Sodium 136 mmol/L (136-145)
[2018-11-20] MEDS: Levothyroxine Sodium 88 MCG TAB PO SCH (06:18)
--- NOTE | 2018-11-20 06:52 | PRG ---
DATE OF SERVICE: 11/18/2018 SUBJECTIVE: Patient was seen and examined at bedside and overnight events noted. Patient denies any shortness of breath or chest pain or palpitation. No history of nausea or vomiting or diarrhea or fever or chills or cramps. OBJECTIVE: GENERAL: This is a morbidly obese male, in no apparent distress. VITAL SIGNS: Temperature 98.1, pulse 116, respiratory rate , blood pressure 84/52. HEENT: Atraumatic, normocephalic. Oral mucosa is moist NECK: Supple. CARDIOVASCULAR: S1, S2 heard. Rate and rhythm regular. RESPIRATORY: Clear to auscultation. GASTROINTESTINAL: Abdomen is soft. MUSCULOSKELETAL: No tenderness. No edema. DERMATOLOGIC: No skin rash. NEUROLOGIC: Alert and awake and oriented X3. No focal neurologic deficits. Moving all the extremities. PSYCHIATRIC: Mood and affect normal. LABORATORY DATA: Not done today. ASSESSMENT AND PLAN: 1. End-stage renal disease. Continue on dialysis. The patient is having contrast exposure today. Plan is for dialysis . 2. Anemia. 3. Morbid obesity. 4. We will continue on dialysis as tolerated. Job ID: [id number]
--- NOTE | 2018-11-20 08:10 | PRG ---
DATE OF SERVICE: 11/20/2018 SUBJECTIVE: Mr. Lyons did reasonably well last night. He had no acute complaints this morning. OBJECTIVE: VITAL SIGNS: Temperature 97.3, pulse 100, blood pressure 108/73. 24-hour intake 3740, output not quantitated. HEENT: Unremarkable. NECK: Without adenopathy, JVD, or bruits. LUNGS: Clear. CARDIAC: S1, S2 regular. ABDOMEN: Soft, obese. EXTREMITIES: No edema. LABORATORY DATA: White blood cell count 12, hematocrit 22.7, and platelet count 225. Sodium 136, potassium 3.7, BUN 43, creatinine 3.6, glucose 133. ASSESSMENT: 1. Improved nasal bleeding. 2. Status post acute respiratory failure related to fluid overload. 3. Renal failure with noncompliance with dialysis. 4. Atrial fibrillation, which is chronic. 5. Chronic systolic heart failure. 6. Morbid obesity. 7. Anemia, probably related to his nose bleeds and renal failure. PLAN: 1. Hold the Eliquis. 2. Dialysis today. 3. Consider transfusing with dialysis if his H and H does not continue to improve. 4. Would continue critical care for the time being. Job ID: [id number]
[2018-11-20] MEDS: Sevelamer Carbonate 800 MG TAB PO SCH ×3 (08:57→17:28)
[2018-11-20] MEDS: Lidocaine 5% Patch TD SCH (08:57)
[2018-11-20] MEDS: Insulin Glargine 5 UNITS in Pre-Filled Syringe 1 EACH SC SCH (08:57)
[2018-11-20] MEDS: Docusate 100 MG CAP PO SCH (08:58)
[2018-11-20] MEDS: Gabapentin 100 MG CAP PO SCH ×3 (08:59→20:25)
[2018-11-20] MEDS ORDERED: Epoetin (NON-ESRD) 20,000 UNITS/ML ML IVP SCH (09:00)
[2018-11-20] MEDS: Nystatin Powder 15 GM BOT TOP SCH (09:04)
[2018-11-20] MEDS: Epoetin (ESRD) 10,000 UNITS/ML VIAL IVP SCH (09:58)
--- NOTE | 2018-11-20 11:15 | PRG ---
DATE OF SERVICE: 11/20/2018 SUBJECTIVE: The patient is seen and examined at bedside. He is feeling better. He does not have much complaints to offer except for blood oozing from his nose. Apparently, Dr. Jane removed the packing from the right nostril this morning. OBJECTIVE: VITAL SIGNS: Blood pressure is 109/84, pulse is 92, respiratory rate is , pulse oximetry is 100%. He is using nasal cannula in his mouth since he had just nosebleed yesterday. HEENT: Head is atraumatic and normocephalic. Pupils are responding to light properly. Sclerae are nonicteric. Oral mucosa is moist. NECK: Supple. No lymphadenopathy. Obese. LUNGS: Breath sounds somewhat diminished at both bases. HEART: S1 and S2. Irregular, tachycardic. No S3. No S4. ABDOMEN: Obese, nontender. Bowel sounds are present. EXTREMITIES: 1+ peripheral edema on the lower extremities. NEUROLOGIC: He follows my commands. He moves his all four extremities. There is no any motor deficit. LABORATORY DATA: Labs showed white count of 12.2, hemoglobin 7.1, hematocrit 22.7, platelet count 225,000. INR 1.8, PT of 20.9. Sodium 136, potassium 3.7, chloride 95, BUN 43, creatinine 3.65, glucose is ranging from 122 to 186, calcium 9.7. IMPRESSION: 1. Non-ST elevation myocardial infarction. 2. Anemia of chronic disease, exacerbated by nosebleed and possible abdominal blood loss. 3. Chronic atrial fibrillation with rapid ventricular response. 4. Coronary artery disease, inoperable. 5. Chronic systolic heart failure. 6. Morbid obesity. 7. Hyperkalemia, resolved. 8. Possible internal bleeding based on CT findings. 9. Elevated INR. PLAN: Plan is to transfuse him again during dialysis today. His hemoglobin was up to 7.8 after he was transfused with 2 units of blood and now is gradually trending down at 7.1 this morning and also because of his INR at 1.8, we going to transfuse him with 2 units of packed red blood cells. Nose is not bleeding anymore. We discussed with Dr. Clay regarding his antibiotic treatment. He is on Zosyn at this point and one out of two blood cultures came back positive for Proteus mirabilis and this is of unclear significance. Glycemia is doing well, so we will continue the current protocol and he will be dialyzed today. Job ID: [id number]
[2018-11-20 12:11] LABS: Hemoglobin 7.5 g/dL (14.0-18.0)
--- NOTE | 2018-11-20 14:32 | PRG ---
DATE OF SERVICE: 11/20/2018 SUBJECTIVE: A 58-year-old gentleman being seen for end-stage renal disease. The patient denied nausea, vomiting, or chest pain. OBJECTIVE: See above. CONSTITUTIONAL: On examination, the patient is awake and alert. VITAL SIGNS: Afebrile, pulse 80, breathing 16, blood pressure 110/68. GENERAL APPEARANCE AND MENTAL STATUS: Fair. HEAD/NECK: Normocephalic. Atraumatic. EYES: EOMI. No deformity. EARS: Clear. No ulcers. NOSE: Intact. No lesions. MOUTH: Clear. No discharge. THROAT: Clear. No exudate. LUNGS: Clear. No crackles. CARDIAC: S1, S2. No rub. ABDOMEN: Benign. Bowel sounds positive. GENITALIA/RECTUM: Quezada absent. BACK/EXTREMITIES: Edema 0+. NEUROLOGICAL: Alert and motor intact. SKIN: LYMPHATICS: LABORATORY DATA: Show hemoglobin 7.5. ASSESSMENT: 1. Stage 6 chronic kidney disease, continue hemodialysis. 2. Hypertension, stable. 3. Anemia, stable. Plan transfusion. Job ID: [id number]
[2018-11-20] MEDS: traMADol HCl 50 MG TAB PO PRN (14:44)
[2018-11-20 16:35] LABS: Hemoglobin 9.2 g/dL (14.0-18.0)
[2018-11-20] MEDS: HumaLOG 300 UNITS/3 ML VIAL SC PRN (17:27)
[2018-11-20] MEDS: Atorvastatin Calcium 20 MG TAB PO SCH (20:25)
[2018-11-20] MEDS: Lidocaine Patch Removal 1 EACH TOP SCH (20:31)
[2018-11-21] MEDS: Piperacillin/Tazobactam 2.25 GM in Sodium Chloride 0.9% 100 ML IVPB SCH ×3 (02:17→17:27)
[2018-11-21] MEDS: Nystatin Powder 15 GM BOT TOP SCH ×3 (02:18→21:12)
[2018-11-21] MEDS: Levothyroxine Sodium 88 MCG TAB PO SCH (05:46)
--- NOTE | 2018-11-21 08:11 | PRG ---
DATE OF SERVICE: 11/21/2018 SUBJECTIVE: He is doing well. His nose has stopped bleeding. OBJECTIVE: VITAL SIGNS: Temperature 97.9, pulse 98, blood pressure 116/77. 24-hour intake 2206, output 2300 by dialysis. HEENT: Unremarkable. NECK: No adenopathy or JVD. LUNGS: He has gentle wheeze bilaterally. CARDIAC: S1 and S2, regular. ABDOMEN: Soft, obese. EXTREMITIES: No edema. LABORATORY DATA: Hemoglobin 9.2, hematocrit 29.0. Glucose 129. ASSESSMENT: 1. Nasal bleeding has stopped after discontinuing the Eliquis. 2. Status post respiratory failure related to fluid overload. 3. Renal failure with noncompliance with dialysis. 4. Atrial fibrillation. 5. Chronic systolic heart failure. 6. Anemia due to blood loss. PLAN: The patient can be transferred out to medical. I would hold off on starting the Eliquis for maybe a week or so. Hopefully, he can go back to the alf soon. Job ID: [id number]
[2018-11-21] MEDS: Docusate 100 MG CAP PO SCH (08:25)
[2018-11-21] MEDS: Sevelamer Carbonate 800 MG TAB PO SCH ×3 (08:25→17:29)
[2018-11-21] MEDS: Gabapentin 100 MG CAP PO SCH ×3 (08:26→21:12)
[2018-11-21] MEDS: Insulin Glargine 5 UNITS in Pre-Filled Syringe 1 EACH SC SCH (08:27)
[2018-11-21] MEDS: Lidocaine 5% Patch TD SCH (08:41)
[2018-11-21] MEDS ORDERED: Benzonatate 100 MG CAP PO PRN (09:28)
--- NOTE | 2018-11-21 09:32 | PDOC.PN ---
- Subjective Encounter Start Date: 11/21/18 Encounter Start Time: 09:29 Mr. Lyons was seen today in follow-up of missed dialysis and metabolic encephalopathy. He is complaining of feeling congested, and coughing. He notes some oozing of blood from his nose. - Objective Resuscitation Status - Order Detail: 11/15/18 18:56 Resuscitation Status Routine Resuscitation Status: FULL: Full Resuscitation Discussed with: Patient MAR Reviewed: Yes Vital Signs & Weight: Vital Signs (12 hours) Temp Pulse Ox 11/21/18 07:21 92 L 11/21/18 07:00 97.9 F 11/21/18 04:00 97.9 F 11/21/18 00:00 97.8 F Weight Admit Weight 343 lb Weight 343 lb Most Recent Monitor Data Heart Rate from ECG 94 NIBP 132/65 NIBP BP-Mean 87 Respiration from ECG 14 SpO2 87 I&O: 11/20/18 11/21/18 11/22/18 06:59 06:59 06:59 Intake Total 3740 2206 255 Balance 3740 2206 255 Result Diagrams: 11/20/18 16:11 11/20/18 03:30 Additional Labs: Accuchecks 11/21/18 11/20/18 11/20/18 05:46 20:28 16:15 POC Glucose 129 H 144 H 170 H 11/20/18 12:17 POC Glucose 137 H Phys Exam - Physical Examination HEENT: PERRLA + dried blood in both nostriles Respiratory: wheezing present + bilateral wheezing and rhonchi Cardiovascular: RRR, no significant murmur, no rub Gastrointestinal: soft, non-tender, no distention, positive bowel sounds Musculoskeletal: no edema chronic venous stasis changes Neurological: non-focal Dx/Plan (1) Epistaxis Code(s): R04.0 - EPISTAXIS Status: Acute (2) ESRD (end stage renal disease) on dialysis Code(s): N18.6 - END STAGE RENAL DISEASE; Z99.2 - DEPENDENCE ON RENAL DIALYSIS Status: Chronic Comment: dialysis per nephrology service (3) NSTEMI (non-ST elevated myocardial infarction) Code(s): I21.4 - NON-ST ELEVATION (NSTEMI) MYOCARDIAL INFARCTION Status: Acute Comment: (4) Hypertension Code(s): I10 - ESSENTIAL (PRIMARY) HYPERTENSION Status: Chronic Qualifiers: Hypertension type: essential hypertension (5) Obesity hypoventilation syndrome Code(s): E66.2 - MORBID (SEVERE) OBESITY WITH ALVEOLAR HYPOVENTILATION Status : Chronic Comment: CPAP at night. (6) Paroxysmal a-fib Code(s): I48.0 - PAROXYSMAL ATRIAL FIBRILLATION Status: Chronic Comment: on Eliquis (7) Hyperkalemia Code(s): E87.5 - HYPERKALEMIA Status: Resolved Comment: (8) DM2 (diabetes mellitus, type 2) Status: Chronic Qualifiers: Comment: - Plan * Epistaxis- resolving- likely potentiated due to platelet disfunction from ESRD * Hyperkalemia- resolved after dialysis * ESRD- continue dialysis as per Nephrology * HTN- blood pressure is stable * DM- blood glucose is stable * Bacteremia- continue Zosyn.- will discuss with ID antibiotic choice going forward * Agree with transition out of the ICU
--- NOTE | 2018-11-21 11:52 | PRG ---
DATE OF SERVICE: 11/21/2018 SUBJECTIVE: A 58-year-old gentleman, being seen for end-stage renal disease. The patient denied any nausea, vomiting, or chest pain. OBJECTIVE: GENERAL: Awake and alert. VITAL SIGNS: Afebrile, breathing 16, blood pressure 131/85. GENERAL APPEARANCE AND MENTAL STATUS: Fair. HEAD/NECK: Normocephalic. Atraumatic. EYES: EOMI. No deformity. EARS: Clear. No ulcers. NOSE: Intact. No lesions. MOUTH: Clear. No discharge. THROAT: Clear. No exudate. LUNGS: Clear. No crackles. CARDIAC: S1, S2. No rub. ABDOMEN: Benign. Bowel sounds positive. GENITALIA/RECTUM: Quezada absent. BACK/EXTREMITIES: Edema 0+. NEUROLOGICAL: Alert and motor intact. ASSESSMENT: chronic kidney disease, on hemodialysis. Hypertension, stable. Anemia, stable. Medication based on GFR appropriate. Job ID: [id number]
[2018-11-21] MEDS: HumaLOG 300 UNITS/3 ML VIAL SC PRN (17:32)
[2018-11-21] MEDS: Atorvastatin Calcium 20 MG TAB PO SCH (21:12)
[2018-11-21] MEDS: Lidocaine Patch Removal 1 EACH TOP SCH (21:12)
[2018-11-22] MEDS: Acetaminophen 325 MG TAB PO PRN (01:30)
[2018-11-22] MEDS: Piperacillin/Tazobactam 2.25 GM in Sodium Chloride 0.9% 100 ML IVPB SCH ×3 (01:39→17:26)
[2018-11-22] MEDS: HumaLOG 300 UNITS/3 ML VIAL SC PRN (05:36)
[2018-11-22] MEDS: Levothyroxine Sodium 88 MCG TAB PO SCH (05:36)
[2018-11-22] MEDS ORDERED: Epoetin (ESRD) 10,000 UNITS/ML VIAL IVP SCH (09:00)
--- NOTE | 2018-11-22 09:09 | PRG ---
DATE OF SERVICE: 11/22/2018 SUBJECTIVE: He has had no more nasal bleeding. He says he is going to have dialysis later today. OBJECTIVE: VITAL SIGNS: On exam, temperature is 97.5, pulse 94, respirations 20, O2 sat 98% on room air, and blood pressure 139/82. HEENT: Unremarkable. NECK: No adenopathy. No JVD. LUNGS: Diminished breath sounds bilaterally. CARDIAC: S1 and S2, regular. ABDOMEN: Morbidly obese. EXTREMITIES: Edematous. LABORATORY DATA: No labs were obtained today. ASSESSMENT: 1. Resolved nasal bleeding. 2. Status post respiratory failure, fluid overload. 3. Renal failure requiring dialysis. 4. Atrial fibrillation. 5. Chronic systolic heart failure. 6. Anemia due to blood loss. PLAN: Probably ready to go back to the halfway after dialysis. We would continue to hold the Eliquis for maybe another week. No further recommendations. Job ID: [id number]
[2018-11-22] MEDS: Gabapentin 100 MG CAP PO SCH ×2 (09:17→16:26)
[2018-11-22] MEDS: Sevelamer Carbonate 800 MG TAB PO SCH ×3 (09:17→17:22)
[2018-11-22] MEDS: Docusate 100 MG CAP PO SCH (09:17)
[2018-11-22] MEDS: Lidocaine 5% Patch TD SCH (09:17)
[2018-11-22] MEDS: Nystatin Powder 15 GM BOT TOP SCH (09:20)
[2018-11-22] MEDS: Insulin Glargine 5 UNITS in Pre-Filled Syringe 1 EACH SC SCH (11:14)
[2018-11-22] MEDS: Epoetin (ESRD) 10,000 UNITS/ML VIAL IVP SCH (11:14)
--- NOTE | 2018-11-22 11:20 | PDOC.PN ---
- Subjective Encounter Start Date: 11/22/18 Encounter Start Time: 11:18 Mr. Lyons was seen today in follow-up of epistaxis and ESRD. He does not have any new complaints. - Objective Resuscitation Status - Order Detail: 11/15/18 18:56 Resuscitation Status Routine Resuscitation Status: FULL: Full Resuscitation Discussed with: Patient DAQUAN Reviewed: Yes Vital Signs & Weight: Vital Signs (12 hours) Temp Pulse Resp BP Pulse Ox 11/22/18 08:00 97.5 F L 94 20 139/82 90 L 11/22/18 04:00 98.6 F 91 18 120/74 97 11/22/18 01:04 97.6 F 94 20 117/78 98 Weight Admit Weight 343 lb Weight 343 lb Most Recent Monitor Data Heart Rate from ECG 91 NIBP 132/65 NIBP BP-Mean 87 Respiration from ECG 23 SpO2 89 I&O: 11/21/18 11/22/18 11/23/18 06:59 06:59 06:59 Intake Total 2206 1345 Output Total 1 Balance 2206 1344 Result Diagrams: 11/20/18 16:11 11/20/18 03:30 Additional Labs: Accuchecks 11/22/18 11/21/18 11/21/18 04:42 19:19 16:12 POC Glucose 159 H 137 H 183 H 11/21/18 12:09 POC Glucose 148 H Phys Exam - Physical Examination HEENT: PERRLA + rhonchi- scattered, no rales Cardiovascular: RRR, no significant murmur, no rub Gastrointestinal: soft, non-tender, no distention, positive bowel sounds Musculoskeletal: edema present Dx/Plan (1) Epistaxis Code(s): R04.0 - EPISTAXIS Status: Acute (2) ESRD (end stage renal disease) on dialysis Code(s): N18.6 - END STAGE RENAL DISEASE; Z99.2 - DEPENDENCE ON RENAL DIALYSIS Status: Chronic Comment: dialysis per nephrology service (3) NSTEMI (non-ST elevated myocardial infarction) Code(s): I21.4 - NON-ST ELEVATION (NSTEMI) MYOCARDIAL INFARCTION Status: Acute Comment: (4) Hypertension Code(s): I10 - ESSENTIAL (PRIMARY) HYPERTENSION Status: Chronic Qualifiers: Hypertension type: essential hypertension (5) Obesity hypoventilation syndrome Code(s): E66.2 - MORBID (SEVERE) OBESITY WITH ALVEOLAR HYPOVENTILATION Status : Chronic Comment: CPAP at night. (6) Paroxysmal a-fib Code(s): I48.0 - PAROXYSMAL ATRIAL FIBRILLATION Status: Chronic Comment: on Eliquis (7) Hyperkalemia Code(s): E87.5 - HYPERKALEMIA Status: Resolved Comment: (8) DM2 (diabetes mellitus, type 2) Status: Chronic Qualifiers: Comment: - Plan * Epistaxis- stable- continue to hold Eliqus for 1 week * ESRD- stable * DM- blood glucose is controlled * Chronic AFIB- stable . * Stable for transfer back to the [place]
[2018-11-22] MEDS ORDERED: rOPINIRole HCl 2 MG TAB PO SCH ×4 (11:26→15:00)
--- NOTE | 2018-11-22 12:14 | PRG ---
DATE OF SERVICE: 11/22/2018 SUBJECTIVE: A 58-year-old gentleman, being seen for end-stage renal disease. The patient denied any nausea, vomiting, or chest pain. OBJECTIVE: GENERAL: The patient is awake and alert. VITAL SIGNS: Afebrile, pulse , breathing 16, blood pressure . GENERAL APPEARANCE AND MENTAL STATUS: Fair. HEAD/NECK: Normocephalic. Atraumatic. EYES: EOMI. No deformity. EARS: Clear. No ulcers. NOSE: Intact. No lesions. MOUTH: Clear. No discharge. THROAT: Clear. No exudate. LUNGS: Clear. No crackles. CARDIAC: S1, S2. No rub. ABDOMEN: Benign. Bowel sounds positive. GENITALIA/RECTUM: Quezada absent. BACK/EXTREMITIES: Edema 0+. NEUROLOGICAL: Alert and motor intact. SKIN: LYMPHATICS: LABORATORY DATA: Hemoglobin 9.2. ASSESSMENT AND PLAN: 1. Stage 6 chronic kidney disease. Continue hemodialysis. 2. Hypertension, stable. 3. Anemia, stable. 4. Medications based on GFR appropriate. Job ID: [id number]
[2018-11-22 16:42] VITALS: BP 136/80; TEMP 97.3
[2018-11-22] MEDS: Calcium Carbonate 500 MG ChewTAB PO PRN (17:29)
[2018-11-22] MEDS: Ondansetron PF 4 MG/2 ML Vial IVP PRN (17:29)
--- NOTE | 2018-11-22 17:59 | DIS ---
DATE OF ADMISSION: 11/15/2018 DATE OF DISCHARGE: 11/22/2018 DISCHARGE DISPOSITION: Back to the [facility]. DISCHARGE DIAGNOSES: 1. Hyperkalemia, resolved. 2. End-stage renal disease, on hemodialysis. 3. Noncompliance with hemodialysis. 4. Epistaxis. 5. Diabetes mellitus type 2. 6. Hypertension. 7. Morbid obesity. 8. Atrial fibrillation. 9. Obesity hypoventilation syndrome. 10. Coronary artery disease with three vessel disease which is inoperable. DISCHARGE MEDICATIONS: Include: 1. Eliquis 2.5 mg twice a day. Note, this is on hold and is to be on hold until November 29. 2. Continue gabapentin 100 mg three times a day. 3. Procrit 74397 units weekly. 4. Omnicef 300 mg twice a day. 5. Tessalon Perles 100 mg q.4. 6. Lipitor 20 mg at bedtime. 7. Tramadol 50 mg q.6. 8. Renvela 800 mg two tabs three times a day. 9. Zoloft 25 mg daily. 10. Ropinirole 4 mg at bedtime. 11. MiraLAX 17 g daily p.r.n. 12. Protonix 40 mg daily. 13. Metoprolol 12.5 mg daily. 14. Lorazepam 0.5 mg twice a day as needed. 15. Lidoderm patch daily as needed. 16. Levothyroxine 88 mcg p.o. daily. 17. Lantus insulin 5 units daily. 18. NovoLog as directed insulin. 19. Colace 100 mg daily. 20. Tylenol q.6 p.r.n. PROCEDURES PERFORMED: Procedures done during the admission, the patient had a CT scan of the abdomen and pelvis. This revealed a large amount of free fluid in the abdomen, splenomegaly, large number of bilateral renal cysts of varying sizes, but there was no evidence of pneumonia and there was no discrete abscess noted. CODE STATUS: Full code. ALLERGIES: TO QUINAPRIL. HOSPITAL COURSE: Mr. Lyons is a pleasant 58-year-old gentleman who has had multiple admissions to the hospital due to complications of missed dialysis. Once again, the patient had missed his outpatient dialysis and was complaining of generalized weakness. He was evaluated in the emergency room and was found to be hyperkalemic with a potassium of 6.1. His intel recruiter was consulted and he underwent urgent dialysis and was admitted to the hospital. The patient also had some leukocytosis which was unclear of the etiology. For this reason, an ID consult was obtained and a CT scan of the abdomen was done. This was essentially negative except for some ascites. He did have one out of two blood cultures, which grew Proteus. He was placed as a precaution on IV antibiotics and was treated with Rocephin to treat the Proteus. This was sensitive to cephalosporins. During the course of his hospital stay, he remained relatively stable and close to his typical baseline level of functioning with the exception of an episode of epistaxis. Due to the large amount of epistaxis, which did require 4 unit transfusion of blood as well as FFP. The Eliquis was placed on hold and once hemostasis was achieved, we will continue to hold the Eliquis for another 7 days post discharge, at which time this can be restarted. The patient is at high risk for readmission as the patient on the day of discharge, refused to complete his complete dialysis session. He only got 2 hours worth of dialysis and he also continued to pick at his nose despite numerous instructions not to, as this he was explained would dislodge the clot. He also was using Yankauer to suction his nose, which we expressly communicated for him to stop doing this and there once again is a strong risk of rebleeding from the nose as well as readmission. Job ID: [id number]
== END 2018-11-22 19:20 | DRG 280 ==
LOC: ERS 14:56 → CCU 16:42 → T4-B 11-21 10:53
PROVIDERS: ADMIT Emergency Medicine; ATTEND Emergency Medicine
PROC: 3E033XZ Introduction of Vasopressor into Peripheral Vein, Percutaneous Approach (ICD-10-PCS; 2018-11-15)
PROC: 5A1D70Z Performance of Urinary Filtration, Intermittent, Less than 6 Hours Per Day (ICD-10-PCS; 2018-11-15)
PROC: 5A1D70Z Performance of Urinary Filtration, Intermittent, Less than 6 Hours Per Day (ICD-10-PCS; 2018-11-17)
PROC: 5A1D70Z Performance of Urinary Filtration, Intermittent, Less than 6 Hours Per Day (ICD-10-PCS; 2018-11-18)
PROC: 30233K1 Transfusion of Nonautologous Frozen Plasma into Peripheral Vein, Percutaneous Approach (ICD-10-PCS; principal; 2018-11-19)
PROC: 30233N1 Transfusion of Nonautologous Red Blood Cells into Peripheral Vein, Percutaneous Approach (ICD-10-PCS; 2018-11-19)
PROC: 5A1D70Z Performance of Urinary Filtration, Intermittent, Less than 6 Hours Per Day (ICD-10-PCS; 2018-11-19)
PROC: 5A1D70Z Performance of Urinary Filtration, Intermittent, Less than 6 Hours Per Day (ICD-10-PCS; 2018-11-20)
PROC: 5A1D70Z Performance of Urinary Filtration, Intermittent, Less than 6 Hours Per Day (ICD-10-PCS; 2018-11-22)
DX: I21.4 Non-ST elevation (NSTEMI) myocardial infarction (principal); N18.6 End stage renal disease; R57.0 Cardiogenic shock; I50.33 Acute on chronic diastolic (congestive) heart failure; J96.01 Acute respiratory failure with hypoxia; G93.41 Metabolic encephalopathy; I13.2 Hypertensive heart and chronic kidney disease with heart failure and with stage 5 chronic kidney disease, or end stage renal disease; E66.2 Morbid (severe) obesity with alveolar hypoventilation; Z68.43 Body mass index [BMI] 50.0-59.9, adult; E87.2 Acidosis; E11.22 Type 2 diabetes mellitus with diabetic chronic kidney disease; E87.5 Hyperkalemia; I25.10 Atherosclerotic heart disease of native coronary artery without angina pectoris; E03.9 Hypothyroidism, unspecified; M19.90 Unspecified osteoarthritis, unspecified site; I87.8 Other specified disorders of veins; D63.1 Anemia in chronic kidney disease; M10.9 Gout, unspecified; I48.0 Paroxysmal atrial fibrillation; R04.0 Epistaxis; Z91.15 Patient's noncompliance with renal dialysis; I95.9 Hypotension, unspecified; Z99.2 Dependence on renal dialysis; Z79.01 Long term (current) use of anticoagulants; Z79.4 Long term (current) use of insulin; Z83.3 Family history of diabetes mellitus
CPT/HCPCS: 30903; 36415; 36416; 36430; 36556; 71045; 74177; 80048; 80053; 82550; 82553; 82805; 83605; 83690; 83735; 83880; 84100; 84443; 84484; 85025; 85610; 85730; 86850; 86900; 86901; 87040; 87077; 87149; 87186; 87340; 90935; 93005; 93010; 94640; 94660; 96365; 96366; 96375; G0257; J0885; J1815; J1825; J2405; J2543; J7050; J7611; P9016; P9047; P9059; Q0162; Q4081; Q9966

== ENCOUNTER 2018-11-29 00:44 | Inpatient (IN) | payer MEDICARE, MEDICAID ==
[2018-11-29] MEDS ORDERED: Albuterol Sulfate 2.5 mg/3 ml Neb ONE (01:39)
[2018-11-29 02:25] LABS: Hemoglobin 9.6 g/dL (14.0-18.0); Mean Corpuscular HGB CONC 29.8 g/dL (32.0-36.0); Mean Corpuscular Hemoglobin 28.9 pg (27.0-31.0); Mean Corpuscular Volume 97.1 fL (78.0-98.0); Mean Platelet Volume 8.1 fL (7.4-10.4); Platelet Count 240 thou/uL (130-400); RBC Distribution Width 17.3 % (11.5-14.5); Red Blood Cell (RBC) Count 3.31 mill/uL (4.70-6.10); White Blood Cell (WBC) Count 6.3 thou/uL (4.8-10.8)
[2018-11-29 02:41] LABS: ALT (SGPT) Less than 7 U/L (8-55); AST (SGOT) 16 U/L (5-34); Alkaline Phosphatase 94 U/L (40-150); Anion Gap 18 mmol/L (10-20); BUN (Urea Nitrogen) 35 mg/dL (8.4-25.7); Bilirubin, Total 0.6 mg/dL (0.2-1.2); CK (CPK) 18 U/L (30-200); Calc. Creatinine Clearance 0 mL/min (70-130); Calcium 9.1 mg/dL (7.8-10.44); Carbon Dioxide 28 mmol/L (22-29); Chloride 94 mmol/L (98-107); Estimated GFR-MDRD 17; Globulin 3.9 g/dL (2.4-3.5); Glucose 121 mg/dL (70-105); Lipase 62 U/L (8-78); Potassium 4.6 mmol/L (3.5-5.1); Protein, Total 6.9 g/dL (6.0-8.3); Sodium 135 mmol/L (136-145)
[2018-11-29 02:46] LABS: #Eosinphils 0.1 thou/uL (0.0-0.7); #Lymphocytes 1.2 thou/uL (1.20-3.40); #Monocytes 0.6 thou/uL (0.11-0.59); #Neutrophils 4.3 thou/uL (1.40-6.50); %Basophils 0.5 % (0.0-1.0); %Eosinophils 1.9 % (0.0-10.0); %Lymphocytes 19.6 % (21.0-51.0); %Monocytes 9.8 % (0.0-10.0); %Neutrophils 68.1 % (42.0-75.0); Anisocytosis MODERATE=16-30 cells (100X) (0-5/hpf); MDiff Complete? YES
[2018-11-29 02:58] LABS: CKMB 1.4 ng/mL (0-6.6)
[2018-11-29] MEDS ORDERED: Dexamethasone 10 MG/ML VIAL ONE (03:06)
[2018-11-29] MEDS ORDERED: Acetaminophen 325 MG TAB PO PRN (04:00)
[2018-11-29] MEDS ORDERED: Ondansetron ODT 4 MG TAB PO PRN (04:00)
[2018-11-29] MEDS ORDERED: Polyethylene Glycol 3350 17 GM Packet PO PRN (04:04)
[2018-11-29] MEDS ORDERED: Oxymetazoline HCl 0.05% (30 ML BOT) NS PRN (04:04)
[2018-11-29] MEDS ORDERED: Dextrose 5% in Water 1,000 ML IV PRN (04:06)
[2018-11-29] MEDS ORDERED: Dextrose 50% Abboject 50 ML SYRINGE SLOW IVP PRN (04:06)
[2018-11-29] MEDS ORDERED: Norepinephrine 8 MG/0.9% NS 250 ML ONE (04:06)
[2018-11-29] MEDS ORDERED: Epoetin (ESRD) 10,000 UNITS/ML VIAL SC SCH (04:15)
[2018-11-29] MEDS ORDERED: Albumin 25% 25 GM/100 ML BOT IVPB SCH (04:15)
[2018-11-29] MEDS ORDERED: Vancomycin HCl 1 GM in Premix Bag 1 BAG IVPB SCH (05:00)
[2018-11-29] MEDS ORDERED: HOLD VANCOMYCIN FOR LEVEL >20 FS SCH (05:00)
[2018-11-29] MEDS ORDERED: Vancomycin HCl 500 MG in Sodium Chloride 0.9% 100 ML IVPB SCH (05:00)
[2018-11-29] MEDS ORDERED: Vancomycin Sliding Scale 1 EACH FS ONE (05:00)
[2018-11-29] MEDS ORDERED: Vancomycin HCl 750 MG in Sodium Chloride 0.9% 250 ML 250 ML IVPB SCH (05:00)
[2018-11-29] MEDS ORDERED: Vancomycin HCl 1.25 GM in Sodium Chloride 0.9% 250 ML 250 ML IVPB SCH (05:00)
[2018-11-29] MEDS ORDERED: Piperacillin/Tazobactam 2.25 GM in Sodium Chloride 0.9% 100 ML IVPB SCH (06:00)
[2018-11-29] MEDS: Sevelamer Carbonate 800 MG TAB PO SCH ×4 (08:10→18:23)
--- NOTE | 2018-11-29 08:46 | RAD ---
EXAM: CHEST ONE VIEW: History: Dyspnea. Comparison: 11-15-18 FINDINGS: Prominent cardiomegaly with bilateral linear and interstitial parenchymal changes in the midlung zone s and lung bases, probably slightly improved from prior studies. No significant new confluent process . IMPRESSION: Persistent bilateral linear and interstitial parenchymal changes showing slight improvement. Continue d short term follow up. POS: [facility]
[2018-11-29 08:48] VITALS: BMI 53.1
--- NOTE | 2018-11-29 08:48 | RAD ---
ABDOMEN ONE VIEW: History: Abdominal pain. FINDINGS/IMPRESSION: The bowel gas pattern is unremarkable. There are degenerative changes in the spine. Vascular calcific ations are present. There is contrast in the diverticulae of the descending colon. POS: LIZ[facility]
--- NOTE | 2018-11-29 08:48 | RAD ---
CHEST 1 VIEW: Date: 11/29/18 HISTORY: Status post central line. FINDINGS: Again noted is marked cardiomegaly and patchy linear and parenchymal changes in the mid lung zones an d lower lung zones with some bilateral vascular congestion. Right central line has been placed. No pn eumothorax or other acute process. IMPRESSION: Placement of right central line without pneumothorax. Marked persistent cardiomegaly and patchy linea r and interstitial parenchymal changes. Continue follow-up for complete clearing. POS: [facility]
--- NOTE | 2018-11-29 09:10 | PDOC.PN ---
- Subjective Encounter Start Date: 11/29/18 Encounter Start Time: 09:08 Patient seen and examined, states he feels better, would like some food. Nurse informs me that when the bipap is taken off his O2 saturation drops below 80s. - Objective Resuscitation Status - Order Detail: 11/29/18 04:00 Resuscitation Status Routine Resuscitation Status: FULL: Full Resuscitation Vital Signs & Weight: Weight Weight 339 lb 8.19 oz Result Diagrams: 11/29/18 01:39 11/29/18 01:39 Additional Labs: Accuchecks 11/29/18 08:41 POC Glucose 162 H Phys Exam - Physical Examination mild respiratory distress HEENT: PERRLA, moist MMs, sclera anicteric +bipap Neck: no nodes, no JVD, supple Respiratory: wheezing present +bipap increased AP diameter Cardiovascular: no significant murmur, no rub tachycardia, IRRR Gastrointestinal: soft, non-tender, no distention Musculoskeletal: pulses present, edema present Dx/Plan (1) COPD (chronic obstructive pulmonary disease) Status: Acute (2) CAD (coronary artery disease) Code(s): I25.10 - ATHSCL HEART DISEASE OF [place] CORONARY ARTERY W/O ANG PCTRS Status: Chronic Qualifiers: Coronary Disease-Associated Artery/Lesion type: [place] artery [place] vs. transplanted heart: [place] heart Associated angina: without angina Qualified Code(s): I25.10 - Atherosclerotic heart disease of [place] coronary artery without angina pectoris Comment: stable (3) DM2 (diabetes mellitus, type 2) Status: Chronic Qualifiers: Comment: (4) ESRD (end stage renal disease) on dialysis Code(s): N18.6 - END STAGE RENAL DISEASE; Z99.2 - DEPENDENCE ON RENAL DIALYSIS Status: Chronic Comment: dialysis per nephrology service (5) Obesity hypoventilation syndrome Code(s): E66.2 - MORBID (SEVERE) OBESITY WITH ALVEOLAR HYPOVENTILATION Status : Chronic Comment: CPAP at night. - Plan * Appears to be overtly volume overloaded, no fevers non elevated WBC count * does not appear to be infectious etiology, will DC abx for now * check echo to see if patient has elevated RSVP causing pre-load dependent condition and BP drop during fluid removal with HD * levophed ordered for HD, long discussion held with patient regarding prognosis * may need midodrine at point in time of DC * HD per renal, orders placed, patient to get HD shortly * no changes in plan of care for now * can likely move to telemetry floor in AM if patient is stable overnight and able to get off bipap * case and plan d/w patient at length, he understood and agreed with this plan
[2018-11-29 09:12] LABS: Troponin I 0.054 ng/mL (< 0.028)
[2018-11-29] MEDS ORDERED: Norepinephrine 8 MG/0.9% NS 250 ML IVPB SCH (09:15)
[2018-11-29] MEDS: Heparin 5,000 UNITS/ML VIAL SC SCH ×3 (09:30→21:59)
[2018-11-29] MEDS: Docusate 100 MG CAP PO SCH (10:07)
[2018-11-29] MEDS: Gabapentin 100 MG CAP PO SCH ×3 (10:07→21:59)
[2018-11-29] MEDS: Levothyroxine Sodium 88 MCG TAB PO SCH (10:09)
[2018-11-29] MEDS: Midodrine HCl 5 MG TAB PO SCH (10:13)
[2018-11-29] MEDS: Lidocaine 5% Patch TD SCH (10:21)
--- NOTE | 2018-11-29 10:50 | CON ---
DATE OF CONSULTATION: 11/29/2018 REASON FOR CONSULTATION: Hypotension and respiratory failure. HISTORY OF PRESENT ILLNESS: Mr. Lyons is well known to me. He was just discharged from the hospital a few days ago. He came back complaining of constipation. He says that the senior living got tired of him hitting the call button. In the emergency room, he was put on BiPAP, that is not unusual. He says he has not missed any dialysis since leaving the hospital. I was able to take him off the BiPAP without much problem and he is scheduled for dialysis later today. PAST MEDICAL HISTORY: 1. Obesity. 2. Probable JOSÉ LUIS - but he has never gotten a sleep study and will not wear CPAP reliably when he is doing well. 3. Coronary artery disease. 4. Congestive heart failure. 5. Myocardial infarction. 6. Atrial fibrillation. 7. Diabetes mellitus. 8. Hypothyroidism. 9. Hypertension. 10. Osteoarthritis. 11. End-stage renal disease, requiring hemodialysis. PAST SURGICAL HISTORY: 1. Appendectomy. 2. Tonsillectomy. 3. AV fistula placement in the right arm. 4. Left leg surgery. SOCIAL HISTORY: Nonsmoker. Does not consume alcohol. ALLERGIES: ACCUPRIL. FAMILY MEDICAL HISTORY: Remarkable for diabetes mellitus. REVIEW OF SYSTEMS: Remarkable for constipation, obesity. No fever, chills, nausea, vomiting, chest pain, hemoptysis, melena, hematochezia, hematuria, or dysuria. MEDICATIONS: Prior to admission, home medication section as listed in the [facility] and the chart, this was reviewed. PHYSICAL EXAMINATION: VITAL SIGNS: Pulse 96, blood pressure 115/74, O2 sat 97%, and respiratory rate 23. GENERAL: He is awake, alert, and in no distress. HEENT: Pupils are reactive. Sclerae are icteric. Oropharynx is clear. NECK: No JVD. LUNGS: Poor air movement. CARDIAC: S1 and S2. Slightly tachycardic. ABDOMEN: Morbidly obese, soft, and nontender. EXTREMITIES: No clubbing, cyanosis, or edema. LABORATORY DATA: White blood cell count 6.3, hematocrit 32.1, and platelet count 240. Sodium 135, potassium 4.6, chloride 94, CO2 of 28, BUN 35, creatinine 3.6, and glucose 121. Troponin 0.054. BNP is 2438. Previous echo reports have demonstrated relatively preserved RV function with mild mitral regurgitation and chronic atrial fibrillation. ASSESSMENT: The patient is presenting with constipation. Additionally, he has his chronic fluid overload situation from end-stage renal disease and he is scheduled for dialysis today. I really do not think his respiratory status is far off his baseline. His hypotension is somewhat concerning and may be secondary to cardiac situation. RECOMMENDATIONS: 1. I agree with stopping the antibiotics as he does not look infected. Use BiPAP as needed. 2. Hemodialysis. 3. We will follow with you. The above encompassed 30 minutes of critical care time. Job ID: [id number]
[2018-11-29] MEDS: traMADol HCl 50 MG TAB PO PRN (11:56)
[2018-11-29] MEDS: Lorazepam 0.5 MG TAB PO PRN (11:58)
[2018-11-29] MEDS: HumaLOG 300 UNITS/3 ML VIAL SC PRN (12:24)
[2018-11-29 15:31] LABS: Troponin I 0.043 ng/mL (< 0.028)
--- NOTE | 2018-11-29 17:44 | CON ---
DATE OF CONSULTATION: 11/29/2018 CONSULTING PHYSICIAN: REASON FOR ADMISSION: Hypotension. HISTORY OF PRESENT ILLNESS: A 58-year-old male with history of end-stage renal disease, coronary artery disease, CHF, and type 2 diabetes, came to the hospital with shortness of breath, Nephrology was consulted to maintain hemodialysis. The patient was hypotensive with shortness of breath and fluid overload. No fever or chills. No nausea or vomiting. PAST MEDICAL HISTORY: Positive for coronary artery disease, CHF, AFib, type 2 diabetes, end-stage renal disease on hemodialysis, and anemia. PAST SURGICAL HISTORY: Appendectomy, tonsillectomy, left surgery, and right AV shunt. MEDICATIONS: 1. Procrit. 2. Lantus. 3. NovoLog. 4. Eliquis. 5. Atorvastatin. 6. Colace. 7. Gabapentin. 8. Levothyroxine. 9. Lidocaine. 10. Protonix. 11. Polyethylene glycol. 12. Augmentin. ALLERGIES: TO QUINAPRIL AND ACCUPRIL. SOCIAL HISTORY: No smoking, alcohol, or illicit drug use. FAMILY HISTORY: Positive for diabetes. REVIEW OF SYSTEMS: CONSTITUTIONAL: Negative for weight loss or gain, ability to conduct usual activities. SKIN: Negative for rash, itching. EYES: Negative for double vision, pain. ENT/MOUTH: Negative for nose bleeding, neck stiffness, pain, tenderness. CARDIOVASCULAR: Negative for palpitations, dyspnea on exertion, orthopnea. RESPIRATORY: Negative for shortness of breath, wheezing, cough, hemoptysis, fever or night sweats. GASTROINTESTINAL: Negative for poor appetite, abdominal pain, heartburn, nausea, vomiting, constipation, or diarrhea. GENITOURINARY: Negative for urgency, frequency, dysuria, nocturia. MUSCULOSKELETAL: Negative for pain, swelling. NEUROLOGIC/PSYCHIATRIC: Negative for anxiety, depression. ALLERGY/IMMUNOLOGIC: Negative for skin rash, bleeding tendency. PHYSICAL EXAMINATION: GENERAL: He is morbidly obese male, in no apparent distress. VITAL SIGNS: Temperature 98.6, pulse . HEENT: Atraumatic and normocephalic. Oral mucosa is moist. NECK: Supple. CVS: S1 and S2 heard. Rate and rhythm regular. RESPIRATORY: Clear. GI: Abdomen is soft. MUSCULOSKELETAL: No tenderness. No edema. DERMATOLOGIC: No skin rash. NEUROLOGIC: Alert and awake. PSYCHIATRIC: Normal mood and affect. LABORATORY DATA: Hemoglobin 9.6. Potassium 4.6, BUN is 35, and creatinine is 3.6. ASSESSMENT AND PLAN: 1. End-stage renal disease, we will remove fluid with hemodialysis as tolerated. 2. Hypotension, continue on Levophed. 3. Edema. 4. Anemia. 5. Morbid obesity. Plan is to continue on dialysis as tolerated. Job ID: [id number]
[2018-11-29] MEDS ORDERED: Ropinirole Hcl [Ropinirole Er] 4 MG PO SCH (21:00)
[2018-11-29] MEDS: rOPINIRole HCl 2 MG TAB PO SCH (21:58)
[2018-11-29] MEDS: Lidocaine Patch Removal 1 EACH TOP SCH (21:59)
[2018-11-29] MEDS: Atorvastatin Calcium 20 MG TAB PO SCH (21:59)
[2018-11-30 00:22] LABS: Troponin I 0.065 ng/mL (< 0.028)
[2018-11-30] MEDS: traMADol HCl 50 MG TAB PO PRN ×2 (04:11→17:12)
[2018-11-30] MEDS: Lorazepam 0.5 MG TAB PO PRN (04:12)
[2018-11-30] MEDS: HumaLOG 300 UNITS/3 ML VIAL SC PRN ×2 (04:13→11:41)
[2018-11-30 04:55] LABS: #Lymphocytes 0.8 thou/uL (1.20-3.40); #Monocytes 0.6 thou/uL (0.11-0.59); %Basophils 0.4 % (0.0-1.0); %Eosinophils 0.3 % (0.0-10.0); %Monocytes 7.4 % (0.0-10.0); %Neutrophils 80.9 % (42.0-75.0); Mean Corpuscular HGB CONC 29.9 g/dL (32.0-36.0); Mean Corpuscular Hemoglobin 29.2 pg (27.0-31.0); Mean Corpuscular Volume 97.5 fL (78.0-98.0); Platelet Count 253 thou/uL (130-400); RBC Distribution Width 17.1 % (11.5-14.5); Red Blood Cell (RBC) Count 3.08 mill/uL (4.70-6.10); White Blood Cell (WBC) Count 7.4 thou/uL (4.8-10.8)
[2018-11-30 05:11] LABS: Anion Gap 15 mmol/L (10-20); BUN (Urea Nitrogen) 28 mg/dL (8.4-25.7); Calc. Creatinine Clearance 58 mL/min (70-130); Calcium 9.5 mg/dL (7.8-10.44); Carbon Dioxide 30 mmol/L (22-29); Chloride 95 mmol/L (98-107); Estimated GFR-MDRD 22; Glucose 177 mg/dL (70-105); Sodium 136 mmol/L (136-145)
--- NOTE | 2018-11-30 08:12 | PRG ---
DATE OF SERVICE: 11/30/2018 SUBJECTIVE: He looks better today. OBJECTIVE: VITAL SIGNS: On exam, his temperature 98.8, pulse 72, blood pressure is 88/56, O2 saturation 91%. GENERAL: He has not appear to be in any distress. HEENT: Unremarkable. NECK: No adenopathy or JVD. CHEST: Clear anteriorly. CARDIAC: S1, S2. Regular. ABDOMEN: Soft. EXTREMITIES: Trace edema. LABORATORY DATA: White blood cell count 7.4, hematocrit 30, platelet count 253. Sodium 136, potassium 4, chloride 95, CO2 of 30, BUN 28, creatinine 2.9, glucose 175. ASSESSMENT: 1. Hypotension, which is probably multifactorial. It is related to his need for dialysis, antihypertensive use, etc. 2. Chronic renal failure. 3. Noncompliance with medical therapy. PLAN: We will stop the Lopressor. He will continue the midodrine. He is continuing hemodialysis intermittently. He could probably go to the floor if okay with all. Job ID: [id number]
[2018-11-30] MEDS: Sevelamer Carbonate 800 MG TAB PO SCH ×3 (09:18→14:40)
[2018-11-30] MEDS: Levothyroxine Sodium 88 MCG TAB PO SCH (09:18)
[2018-11-30] MEDS: Docusate 100 MG CAP PO SCH (09:19)
[2018-11-30] MEDS: Gabapentin 100 MG CAP PO SCH ×3 (09:19→20:03)
[2018-11-30] MEDS: Heparin 5,000 UNITS/ML VIAL SC SCH ×3 (09:19→20:03)
[2018-11-30] MEDS: Midodrine HCl 5 MG TAB PO SCH (09:20)
[2018-11-30] MEDS: Lidocaine 5% Patch TD SCH (09:20)
--- NOTE | 2018-11-30 09:38 | PDOC.PN ---
- Subjective Encounter Start Date: 11/30/18 Encounter Start Time: 11:10 Subjective: Patient feeling much better. Off Bipap and cleared to go to the -: floor by pulmonology. - Objective Resuscitation Status - Order Detail: 11/29/18 04:00 Resuscitation Status Routine Resuscitation Status: FULL: Full Resuscitation MAR Reviewed: Yes Vital Signs & Weight: Vital Signs (12 hours) Temp Pulse Ox 11/30/18 07:41 93 L 11/30/18 07:00 97.6 F 11/30/18 03:00 98.8 F 11/29/18 23:29 96 11/29/18 23:00 98.8 F Weight Weight 339 lb 8.19 oz Most Recent Monitor Data Heart Rate from ECG 80 NIBP 94/69 NIBP BP-Mean 77 Respiration from ECG 20 SpO2 86 I&O: 11/29/18 11/30/18 12/01/18 06:59 06:59 06:59 Intake Total 819 245 Output Total 60 Balance 759 245 Result Diagrams: 11/30/18 04:37 11/30/18 04:37 Additional Labs: Accuchecks 11/30/18 11/29/18 11/29/18 04:10 21:56 17:18 POC Glucose 196 H 133 H 184 H 11/29/18 12:04 POC Glucose 235 H Phys Exam - Physical Examination Constitutional: NAD Obese HEENT: moist MMs Respiratory: no wheezing, no rales, no rhonchi Cardiovascular: RRR Gastrointestinal: soft, positive bowel sounds Neurological: non-focal, moves all 4 limbs Psychiatric: normal affect, A&O x 3 Dx/Plan (1) Acute on chronic respiratory failure with hypoxia and hypercapnia Code(s): J96.21 - ACUTE AND CHRONIC RESPIRATORY FAILURE WITH HYPOXIA; J96.22 - ACUTE AND CHRONIC RESPIRATORY FAILURE WITH HYPERCAPNIA Status: Acute Comment : Improved, off Bipap (2) COPD exacerbation Code(s): J44.1 - CHRONIC OBSTRUCTIVE PULMONARY DISEASE W (ACUTE) EXACERBATION Status: Acute (3) Hypotension Status: Acute (4) ESRD (end stage renal disease) on dialysis Code(s): N18.6 - END STAGE RENAL DISEASE; Z99.2 - DEPENDENCE ON RENAL DIALYSIS Status: Chronic Comment: dialysis per nephrology service (5) Anemia of renal disease Code(s): D63.1 - ANEMIA IN CHRONIC KIDNEY DISEASE Status: Chronic Comment: stable (6) CAD (coronary artery disease) Code(s): I25.10 - ATHSCL HEART DISEASE OF [place] CORONARY ARTERY W/O ANG PCTRS Status: Chronic Qualifiers: Coronary Disease-Associated Artery/Lesion type: [place] artery [place] vs. transplanted heart: [place] heart Associated angina: without angina Qualified Code(s): I25.10 - Atherosclerotic heart disease of [place] coronary artery without angina pectoris Comment: stable (7) Chronic systolic heart failure Code(s): I50.22 - CHRONIC SYSTOLIC (CONGESTIVE) HEART FAILURE Status: Chronic Comment: (8) DM2 (diabetes mellitus, type 2) Status: Chronic Qualifiers: Comment: (9) Hypertension Code(s): I10 - ESSENTIAL (PRIMARY) HYPERTENSION Status: Chronic Qualifiers: Hypertension type: essential hypertension Qualified Code(s): I10 - Essential (primary) hypertension (10) Lymphedema Code(s): I89.0 - LYMPHEDEMA, NOT ELSEWHERE CLASSIFIED Status: Chronic (11) Morbid obesity due to excess calories Code(s): E66.01 - MORBID (SEVERE) OBESITY DUE TO EXCESS CALORIES Status: Chronic (12) Obesity hypoventilation syndrome Code(s): E66.2 - MORBID (SEVERE) OBESITY WITH ALVEOLAR HYPOVENTILATION Status : Chronic Comment: CPAP at night. (13) Paroxysmal a-fib Code(s): I48.0 - PAROXYSMAL ATRIAL FIBRILLATION Status: Chronic Comment: on Eliquis - Plan cont current plan of care Appreciate Dr Mejia and Dr. Juárez assistance. * . - Discharge Day Encounter end time: 11:20
--- NOTE | 2018-11-30 11:17 | PRG ---
DATE OF SERVICE: 11/30/2018 SUBJECTIVE: Patient was seen and examined at bedside and overnight events noted. Patient denies any shortness of breath or chest pain or palpitation. No history of nausea or vomiting or diarrhea or fever or chills or cramps. OBJECTIVE: GENERAL: This is a morbidly obese male, in no apparent distress. VITAL SIGNS: Temperature . Respiratory rate 18. Blood pressure 113/69. HEENT: Atraumatic, normocephalic. Oral mucosa is moist NECK: Supple. CARDIOVASCULAR: S1, S2 heard. Rate and rhythm regular. RESPIRATORY: Clear to auscultation. GASTROINTESTINAL: Abdomen is soft. MUSCULOSKELETAL: No tenderness. No edema. DERMATOLOGIC: No skin rash. NEUROLOGIC: Alert and awake and oriented X3. No focal neurologic deficits. Moving all the extremities. PSYCHIATRIC: Mood and affect normal. LABORATORY DATA: Potassium is 4.0, BUN is 28, creatinine is 2.9. ASSESSMENT AND PLAN: 1. End-stage renal disease. We will continue dialysis. No dialysis today. We will continue on dialysis Tuesday, Tuesday, and Tuesday. 2. Hypotension, on Levophed and . 3. Edema, remove fluid as tolerated. 4. Anemia. 5. Morbid obesity. Prognosis is guarded. Remains hypotensive and high risk for dialysis. The patient is aware and we will continue dialysis as tolerated. No dialysis today. We will continue on dialysis Tuesday, Tuesday, and Tuesday. Job ID: [id number]
--- NOTE | 2018-11-30 12:31 | PQF ---
LIZZIE BETH RYAN ANDREW MD [id number] CLINICAL DOCUMENTATION IMPROVEMENT CLARIFICATION FORM: ICD-10 Updated PLEASE DO AN ADDENDUM TO THE PROGRESS NOTE WITH ANY DOCUMENTATION UPDATES OR ADDITIONS AND CARRY THROUGH TO DC SUMMARY. THANK YOU. DATE: 11/30/2018 ATTN: DR. Soo BLANCO Please exercise your independent, professional judgment in responding to the clarification form. Clinical indicators are provided on the bottom of this form for your review. Please check appropriate box(s): [ ] Acute Respiratory Failure: [ ] with Hypoxia [ ] with Hypercapnia [ X ] Acute On Chronic Respiratory Failure: [ X ] with Hypoxia [ X ] with Hypercapnia [ ] Acute Respiratory Failure due to: (etiology) [ ] Chronic Respiratory Failure only [ ] with Hypoxia [ ] with Hypercapnia [ ] Other diagnosis [ ] Unable to determine In addition, please specify: Present on Admission (POA): [ X ] Yes [ ] No [ ] Unable to determine For continuity of documentation, please document condition throughout progress notes and discharge summary. Thank You. CLINICAL INDICATORS - SIGNS / SYMPTOMS / LABS ED PRESENTATION 11/29 : ( PER EMS-PT NORMALLY ON 3L/NC, O2 SAT 88-91% ON 3L THEN PLACED ON NRB) ARRIVED 98 % NRB > 3L >BIPAP, BP 80/39 - 113/82, R 21-29, SIGNS OF DISTRESS, NASAL FLARING GRUNTING, TRIPOD POSITIONING, MODERATE DISTRESS PT TRANSFERRED TO CCU ON BIPAP RISK FACTORS : HOME O2 AT 3L/NC COPD EXACERBATION ESRD TREATMENTS: BIPAP CCU MONITORING PULMONARY CONSULT THANK YOU ! ELOISA (This form is maintained as a part of the permanent medical record) 2014 [employer]. All Rights Reserved Eloisa Abad RN, BSN [email or web address] Office: [phone] [facility]
[2018-11-30] MEDS ORDERED: Senokot 8.6 MG TAB PO PRN (17:14)
[2018-11-30] MEDS: Nystatin Powder 15 GM BOT TOP SCH (20:04)
[2018-11-30] MEDS: Atorvastatin Calcium 20 MG TAB PO SCH (20:04)
[2018-11-30] MEDS: rOPINIRole HCl 2 MG TAB PO SCH (20:04)
[2018-11-30] MEDS: Lidocaine Patch Removal 1 EACH TOP SCH (21:01)
[2018-12-01] MEDS: traMADol HCl 50 MG TAB PO PRN ×2 (00:29→21:06)
[2018-12-01] MEDS: Levothyroxine Sodium 88 MCG TAB PO SCH (08:02)
[2018-12-01] MEDS: Lidocaine 5% Patch TD SCH (08:02)
[2018-12-01] MEDS: Heparin 5,000 UNITS/ML VIAL SC SCH ×3 (08:02→21:01)
[2018-12-01] MEDS: Docusate 100 MG CAP PO SCH ×2 (08:03→21:00)
[2018-12-01] MEDS: Gabapentin 100 MG CAP PO SCH ×3 (08:03→21:00)
[2018-12-01] MEDS: Midodrine HCl 5 MG TAB PO SCH (08:03)
[2018-12-01] MEDS: Sevelamer Carbonate 800 MG TAB PO SCH ×3 (08:03→16:58)
[2018-12-01] MEDS: Nystatin Powder 15 GM BOT TOP SCH ×2 (08:10→21:01)
--- NOTE | 2018-12-01 09:22 | PRG ---
DATE OF SERVICE: 12/01/2018 SUBJECTIVE: The patient seems to be doing reasonably well. He has no acute complaints. OBJECTIVE: VITAL SIGNS: On exam, temperature 97.5, pulse 78, respirations 20, sat 93% on 3 L, and blood pressure 114/77. HEENT: Unremarkable. NECK: No adenopathy or JVD. CHEST: Coarse rhonchi. CARDIAC: S1 and S2, regular. ABDOMEN: Soft. EXTREMITIES: Edematous. LABORATORY DATA: ejection fraction of 50% to 55%. He had no labs today otherwise. ASSESSMENT: 1. Respiratory failure secondary to fluid overload. 2. Labile blood pressure requiring midodrine. PLAN: Continue dialysis. He is probably approaching the point where he can be discharged from Pulmonary standpoint. We have nothing further to add to the case and we will follow peripherally. Job ID: [id number]
--- NOTE | 2018-12-01 11:40 | PRG ---
DATE OF SERVICE: 12/01/2018 SUBJECTIVE: Patient was seen and examined at bedside and overnight events noted. Patient denies any shortness of breath or chest pain or palpitation. No history of nausea or vomiting or diarrhea or fever or chills or cramps. OBJECTIVE: GENERAL: This is a morbidly obese male, in no apparent distress. VITAL SIGNS: Temperature 97.5. Pulse 78. Respiratory rate 20. Blood pressure 114/77. HEENT: Atraumatic, normocephalic. Oral mucosa is moist NECK: Supple. CARDIOVASCULAR: S1, S2 heard. Rate and rhythm regular. RESPIRATORY: Clear to auscultation. GASTROINTESTINAL: Abdomen is soft. MUSCULOSKELETAL: No tenderness. No edema. DERMATOLOGIC: No skin rash. NEUROLOGIC: Alert and awake and oriented X3. No focal neurologic deficits. Moving all the extremities. PSYCHIATRIC: Mood and affect normal. LABORATORY DATA: Not done. ASSESSMENT AND PLAN: 1. End-stage renal disease. Continue on hemodialysis on Tuesday, Tuesday, and Tuesday. 2. Hypotension, stable. 3. Edema, remove fluid as tolerated. 4. Morbid obesity. 5. Anemia of chronic disease. 6. We will follow. Job ID: [id number]
--- NOTE | 2018-12-01 20:40 | PDOC.PN ---
- Subjective Encounter Start Date: 12/01/18 (f/u constipation) Encounter Start Time: 20:38 Subjective: Pt reports improvement in breathing after dialysis. Reports -: long hx of cough productive of yellow mucous. Reports no BM -: since admission adn concern of this - Objective Resuscitation Status - Order Detail: 11/29/18 04:00 Resuscitation Status Routine Resuscitation Status: FULL: Full Resuscitation Vital Signs & Weight: Vital Signs (12 hours) Temp Pulse Resp BP Pulse Ox 12/01/18 17:17 97.9 F 73 20 124/70 95 Weight Weight 339 lb 8.19 oz Most Recent Monitor Data Heart Rate from ECG 85 NIBP 111/73 NIBP BP-Mean 85 Respiration from ECG 18 SpO2 82 I&O: 11/30/18 12/01/18 12/02/18 06:59 06:59 06:59 Intake Total 819 760 480 Output Total 60 Balance 759 760 480 Result Diagrams: 11/30/18 04:37 11/30/18 04:37 Additional Labs: Accuchecks 12/01/18 12/01/18 16:26 04:20 POC Glucose 123 H 139 H Phys Exam - Physical Examination Constitutional: NAD Respiratory: no wheezing, no rhonchi bibasilar rales Cardiovascular: RRR, no significant murmur Gastrointestinal: soft, positive bowel sounds 2+ pitting edema bilateral Neurological: non-focal Psychiatric: normal affect, A&O x 3 Skin: no rash Dx/Plan (1) Acute on chronic respiratory failure with hypoxia and hypercapnia Code(s): J96.21 - ACUTE AND CHRONIC RESPIRATORY FAILURE WITH HYPOXIA; J96.22 - ACUTE AND CHRONIC RESPIRATORY FAILURE WITH HYPERCAPNIA Status: Acute Comment : Improved, off Bipap (2) Constipation Code(s): K59.00 - CONSTIPATION, UNSPECIFIED Status: Acute Qualifiers: Constipation type: unspecified constipation type Qualified Code(s): K59.00 - Constipation, unspecified (3) ESRD (end stage renal disease) on dialysis Code(s): N18.6 - END STAGE RENAL DISEASE; Z99.2 - DEPENDENCE ON RENAL DIALYSIS Status: Chronic (4) Anemia of renal disease Code(s): D63.1 - ANEMIA IN CHRONIC KIDNEY DISEASE Status: Chronic Comment: stable (5) CAD (coronary artery disease) Code(s): I25.10 - ATHSCL HEART DISEASE OF [place] CORONARY ARTERY W/O ANG PCTRS Status: Chronic Qualifiers: Coronary Disease-Associated Artery/Lesion type: [place] artery [place] vs. transplanted heart: [place] heart Associated angina: without angina Qualified Code(s): I25.10 - Atherosclerotic heart disease of [place] coronary artery without angina pectoris Comment: stable (6) DM2 (diabetes mellitus, type 2) Status: Chronic Qualifiers: Chronic kidney disease stage: on chronic dialysis Comment: (7) Obesity hypoventilation syndrome Code(s): E66.2 - MORBID (SEVERE) OBESITY WITH ALVEOLAR HYPOVENTILATION Status : Chronic - Plan * Appreciate Nephrology and Pulmonology consults * Change colace to bid and schedule miralax, add prn lactulose * blood sugars well controlled * continue home meds as ordered * * Pt with years of dysuria with voiding - reports he makes some urine and voids regularly - will need outpatient eval of this * * anticipate d/c to [facility] if no further dialysis this weekend. * * dvt prophy - heparin * gi prophy - not indicated * code status full * * reviewed plan of care with patient - no questions or further needs at end of eval.
[2018-12-01] MEDS: rOPINIRole HCl 2 MG TAB PO SCH (21:01)
[2018-12-01] MEDS: Atorvastatin Calcium 20 MG TAB PO SCH (21:01)
[2018-12-01] MEDS: Lidocaine Patch Removal 1 EACH TOP SCH (21:01)
[2018-12-02] MEDS: Gabapentin 100 MG CAP PO SCH ×3 (08:37→20:13)
[2018-12-02] MEDS: Sevelamer Carbonate 800 MG TAB PO SCH ×4 (08:37→18:48)
[2018-12-02] MEDS: Midodrine HCl 5 MG TAB PO SCH (08:38)
[2018-12-02] MEDS: Levothyroxine Sodium 88 MCG TAB PO SCH (08:39)
[2018-12-02] MEDS: Heparin 5,000 UNITS/ML VIAL SC SCH ×3 (08:39→20:13)
[2018-12-02] MEDS: Docusate 100 MG CAP PO SCH ×2 (08:39→20:18)
[2018-12-02] MEDS: Nystatin Powder 15 GM BOT TOP SCH ×2 (08:39→20:14)
[2018-12-02] MEDS: Polyethylene Glycol 3350 17 GM Packet PO SCH (08:40)
[2018-12-02] MEDS: Lidocaine 5% Patch TD SCH (09:02)
--- NOTE | 2018-12-02 13:11 | PDOC.PN ---
- Subjective Encounter Start Date: 12/02/18 Encounter Start Time: 08:45 -: old records requested/rev Patient seen and examined. No new complaints. No overnight events he has constipation - Objective Resuscitation Status - Order Detail: 11/29/18 04:00 Resuscitation Status Routine Resuscitation Status: FULL: Full Resuscitation MAR Reviewed: Yes Vital Signs & Weight: Vital Signs (12 hours) Temp Pulse Resp BP Pulse Ox 12/02/18 08:00 97.9 F 79 20 124/83 98 Weight Weight 339 lb 8.19 oz Most Recent Monitor Data Heart Rate from ECG 85 NIBP 111/73 NIBP BP-Mean 85 Respiration from ECG 18 SpO2 82 I&O: 12/01/18 12/02/18 12/03/18 06:59 06:59 06:59 Intake Total 760 480 Balance 760 480 Result Diagrams: 11/30/18 04:37 11/30/18 04:37 Additional Labs: Accuchecks 12/02/18 12/02/18 12/01/18 11:31 04:00 19:44 POC Glucose 135 H 117 H 152 H 12/01/18 16:26 POC Glucose 123 H Phys Exam - Physical Examination Constitutional: NAD HEENT: PERRLA, moist MMs, sclera anicteric Neck: no JVD, supple Respiratory: no wheezing, no rales, no rhonchi morbid obesity limiting exam Cardiovascular: RRR, no significant murmur Gastrointestinal: soft, non-tender, no distention, positive bowel sounds Musculoskeletal: pulses present, edema present Neurological: non-focal, normal sensation Lymphatic: no nodes Psychiatric: normal affect, A&O x 3 Skin: no rash, normal turgor Dx/Plan (1) Acute on chronic respiratory failure with hypoxia and hypercapnia Code(s): J96.21 - ACUTE AND CHRONIC RESPIRATORY FAILURE WITH HYPOXIA; J96.22 - ACUTE AND CHRONIC RESPIRATORY FAILURE WITH HYPERCAPNIA Status: Acute Comment : (2) Volume overload Code(s): E87.70 - FLUID OVERLOAD, UNSPECIFIED Status: Acute (3) Anemia of renal disease Code(s): D63.1 - ANEMIA IN CHRONIC KIDNEY DISEASE Status: Chronic Comment: stable (4) CAD (coronary artery disease) Code(s): I25.10 - ATHSCL HEART DISEASE OF [place] CORONARY ARTERY W/O ANG PCTRS Status: Chronic Qualifiers: Coronary Disease-Associated Artery/Lesion type: [place] artery [place] vs. transplanted heart: [place] heart Associated angina: without angina Qualified Code(s): I25.10 - Atherosclerotic heart disease of [place] coronary artery without angina pectoris Comment: stable (5) DM2 (diabetes mellitus, type 2) Status: Chronic Qualifiers: Chronic kidney disease stage: on chronic dialysis Comment: (6) ESRD (end stage renal disease) on dialysis Code(s): N18.6 - END STAGE RENAL DISEASE; Z99.2 - DEPENDENCE ON RENAL DIALYSIS Status: Chronic (7) Gout Code(s): M10.9 - GOUT, UNSPECIFIED Status: Chronic Qualifiers: Gout site: unspecified site Comment: No Exacerbation noted. (8) Hypertension Code(s): I10 - ESSENTIAL (PRIMARY) HYPERTENSION Status: Chronic Qualifiers: Hypertension type: essential hypertension Qualified Code(s): I10 - Essential (primary) hypertension (9) Lymphedema Code(s): I89.0 - LYMPHEDEMA, NOT ELSEWHERE CLASSIFIED Status: Chronic (10) Morbid obesity due to excess calories Code(s): E66.01 - MORBID (SEVERE) OBESITY DUE TO EXCESS CALORIES Status: Chronic (11) Obesity hypoventilation syndrome Code(s): E66.2 - MORBID (SEVERE) OBESITY WITH ALVEOLAR HYPOVENTILATION Status : Chronic (12) Paroxysmal a-fib Code(s): I48.0 - PAROXYSMAL ATRIAL FIBRILLATION Status: Chronic Comment: on Eliquis - Plan cont current plan of care * continue volume removal with HD as per nephrology * medication reviewed as below * symptomatic treatment * supportive care * will treat constipation. Review of Systems - Review of Systems Eyes: negative: Pain, Vision Change, Conjunctivae Inflammation, Eyelid Inflammation, Redness, Other ENT: negative: Ear Pain, Ear Discharge, Nose Pain, Nose Discharge, Nose Congestion, Mouth Pain, Mouth Swelling, Throat Pain, Throat Swelling, Other Respiratory: negative: Cough, Dry, Shortness of Breath, Hemoptysis, SOB with Excertion, Pleuritic Pain, Sputum, Wheezing Cardiovascular: negative: chest pain, palpitations, orthopnea, paroxysmal nocturnal dyspnea, edema, light headedness, other Gastrointestinal: Constipation. negative: Nausea, Vomiting, Abdominal Pain, Diarrhea, Melena, Hematochezia, Other Genitourinary: negative: Dysuria, Frequency, Incontinence, Hematuria, Retention , Other Musculoskeletal: negative: Neck Pain, Shoulder Pain, Arm Pain, Back Pain, Hand Pain, Leg Pain, Foot Pain, Other Skin: negative: Rash, Lesions, Freddy, Bruising, Other - Medications/Allergies Allergies/Adverse Reactions: Allergies Allergy/AdvReac Type Severity Reaction Status Date / Time quinapril HCl [From Accupril] Allergy Verified 11/05/18 03:21 Medications: Current Medications Acetaminophen (Tylenol) 650 mg PO Q4H PRN PRN Reason: Headache/Fever/Mild Pain (1-3) Atorvastatin Calcium (Lipitor) 20 mg PO HS [facility] Last Admin: 12/01/18 21:01 Dose: 20 mg Benzonatate (Tessalon) 100 mg PO Q4H PRN PRN Reason: Cough Dextrose/Water (Dextrose 50%) 25 gm SLOW IVP PRN PRN PRN Reason: Hypoglycemia Docusate Sodium (Colace) 100 mg PO BID [facility] Last Admin: 12/02/18 08:39 Dose: 100 mg Gabapentin (Neurontin) 100 mg PO TID [facility] Last Admin: 12/02/18 08:37 Dose: 100 mg Glucagon (Glucagon) 1 mg IM PRN PRN PRN Reason: Hypoglycemia Heparin Sodium (Porcine) (Heparin) 5,000 units SC TID [facility] Last Admin: 12/02/18 08:39 Dose: 5,000 units Dextrose/Water (D5w) 1,000 mls @ 0 mls/hr IV .Q0M PRN PRN Reason: Hypoglycemia Insulin Human Lispro (Humalog) 0 units SC .MILD SLIDING SCALE PRN PRN Reason: Mild Correctional Scale Last Admin: 11/30/18 11:41 Dose: 2 unit Lactulose (Lactulose) 20 gm PO DAILYPRN PRN PRN Reason: Constipation Levothyroxine Sodium (Synthroid) 88 mcg PO DAILY [facility] Last Admin: 12/02/18 08:39 Dose: 88 mcg Lidocaine (Lidoderm 5% Patch) 1 patch TD DAILY [facility] Last Admin: 12/02/18 09:02 Dose: 1 patch Lorazepam (Ativan) 0.5 mg PO BID PRN PRN Reason: Anxiety Last Admin: 11/30/18 04:12 Dose: 0.5 mg Midodrine (Proamatine) 5 mg PO DAILY [facility] Last Admin: 12/02/18 08:38 Dose: 5 mg Miscellaneous Medication (Lidocaine Patch Removal) 1 each TOP 2100 [facility] Last Admin: 12/01/18 21:01 Dose: 1 each Hold Vancomycin For (Level >20) 0 each FS .AT DIALYSIS [facility] Nystatin (Mycostatin Powder) 0 gm TOP BID [facility] Last Admin: 12/02/18 08:39 Dose: 1 applic Ondansetron HCl (Zofran Odt) 4 mg PO Q6H PRN PRN Reason: Nausea/Vomiting Oxymetazoline HCl (Nasal Decongestant) 0 ml NS BID PRN PRN Reason: Congestion Pantoprazole Sodium (Protonix) 40 mg PO DAILY [facility] Last Admin: 12/02/18 08:39 Dose: 40 mg Polyethylene Glycol (Miralax) 17 gm PO DAILY [facility] Last Admin: 12/02/18 08:40 Dose: 17 gm Ropinirole HCl (Requip) 4 mg PO HS [facility] Last Admin: 12/01/18 21:01 Dose: 4 mg Senna (Senokot) 2 tab PO HSPRN PRN PRN Reason: Constipation Last Admin: 11/30/18 20:03 Dose: 2 tab Sertraline HCl (Zoloft) 25 mg PO DAILY [facility] Last Admin: 12/02/18 08:39 Dose: 25 mg Sevelamer Carbonate (Renvela) 1,600 mg PO TID-WM [facility] Last Admin: 12/02/18 11:35 Dose: 1,600 mg Sodium Chloride (Flush - Normal Saline) 10 ml IVF Q12HR [facility] Last Admin: 12/02/18 08:40 Dose: 10 ml Sodium Chloride (Flush - Normal Saline) 10 ml IVF PRN PRN PRN Reason: Saline Flush Last Admin: 11/30/18 09:29 Dose: 10 ml Tramadol HCl (Ultram) 50 mg PO Q6HR PRN PRN Reason: Pain Last Admin: 12/01/18 21:06 Dose: 50 mg
--- NOTE | 2018-12-02 15:55 | PRG ---
DATE OF SERVICE: 12/02/2018 SUBJECTIVE: Patient was seen and examined at bedside and overnight events noted. Patient denies any shortness of breath or chest pain or palpitation. No history of nausea or vomiting or diarrhea or fever or chills or cramps. OBJECTIVE: GENERAL: This is a morbidly obese male, in no apparent distress. VITAL SIGNS: Temperature 97.9 Pulse 79. Respiratory rate . Blood pressure 124/83. HEENT: Atraumatic, normocephalic. Oral mucosa is moist NECK: Supple. CARDIOVASCULAR: S1, S2 heard. Rate and rhythm regular. RESPIRATORY: Clear to auscultation. GASTROINTESTINAL: Abdomen is soft. MUSCULOSKELETAL: No tenderness. No edema. DERMATOLOGIC: No skin rash. NEUROLOGIC: Alert and awake and oriented X3. No focal neurologic deficits. Moving all the extremities. PSYCHIATRIC: Mood and affect normal. LABORATORY DATA: Not done today. ASSESSMENT AND PLAN: 1. End-stage renal disease. Continue on hemodialysis on Tuesday, Tuesday, and Tuesday. 2. Hypotension, stable. 3. Edema. 4. Morbid obesity. 5. Anemia of chronic disease. 6. We will continue dialysis as tolerated. Job ID: [id number]
[2018-12-02] MEDS: Atorvastatin Calcium 20 MG TAB PO SCH (20:13)
[2018-12-02] MEDS: Lidocaine Patch Removal 1 EACH TOP SCH (20:15)
[2018-12-02] MEDS: rOPINIRole HCl 2 MG TAB PO SCH (20:18)
[2018-12-03] MEDS: Levothyroxine Sodium 88 MCG TAB PO SCH (08:54)
[2018-12-03] MEDS: Gabapentin 100 MG CAP PO SCH ×3 (08:54→21:52)
[2018-12-03] MEDS: Midodrine HCl 5 MG TAB PO SCH (08:55)
[2018-12-03] MEDS: Sevelamer Carbonate 800 MG TAB PO SCH ×3 (08:55→16:27)
[2018-12-03] MEDS: Docusate 100 MG CAP PO SCH ×2 (08:55→21:52)
[2018-12-03] MEDS: Lidocaine 5% Patch TD SCH (08:56)
[2018-12-03] MEDS: Heparin 5,000 UNITS/ML VIAL SC SCH ×3 (08:56→21:52)
[2018-12-03] MEDS: Polyethylene Glycol 3350 17 GM Packet PO SCH ×2 (08:58→21:52)
[2018-12-03] MEDS: Nystatin Powder 15 GM BOT TOP SCH ×2 (08:58→21:52)
--- NOTE | 2018-12-03 10:17 | PDOC.PN ---
- Subjective Encounter Start Date: 12/03/18 Encounter Start Time: 08:00 Patient seen and examined. No new complaints. No overnight events he has constipation - Objective Resuscitation Status - Order Detail: 11/29/18 04:00 Resuscitation Status Routine Resuscitation Status: FULL: Full Resuscitation MAR Reviewed: Yes Vital Signs & Weight: Vital Signs (12 hours) Temp Pulse Resp BP Pulse Ox 12/03/18 08:00 97 12/03/18 07:37 98.3 F 82 18 126/84 97 Weight Weight 339 lb 8.19 oz Most Recent Monitor Data Heart Rate from ECG 85 NIBP 111/73 NIBP BP-Mean 85 Respiration from ECG 18 SpO2 82 I&O: 12/02/18 12/03/18 12/04/18 06:59 06:59 06:59 Intake Total 480 Balance 480 Result Diagrams: 11/30/18 04:37 11/30/18 04:37 Additional Labs: Accuchecks 12/02/18 12/02/18 12/02/18 19:36 17:03 11:31 POC Glucose 166 H 145 H 135 H Phys Exam - Physical Examination Constitutional: NAD HEENT: PERRLA, moist MMs, sclera anicteric Neck: no JVD, supple Respiratory: no wheezing, no rales, no rhonchi Cardiovascular: RRR, no significant murmur, no rub Gastrointestinal: soft, non-tender, no distention, positive bowel sounds morbid obesity limiting exam Musculoskeletal: pulses present, edema present Neurological: non-focal, normal sensation Lymphatic: no nodes Psychiatric: normal affect, A&O x 3 Skin: no rash, normal turgor Dx/Plan (1) Acute on chronic respiratory failure with hypoxia and hypercapnia Code(s): J96.21 - ACUTE AND CHRONIC RESPIRATORY FAILURE WITH HYPOXIA; J96.22 - ACUTE AND CHRONIC RESPIRATORY FAILURE WITH HYPERCAPNIA Status: Acute Comment : (2) Volume overload Code(s): E87.70 - FLUID OVERLOAD, UNSPECIFIED Status: Acute (3) Anemia of renal disease Code(s): D63.1 - ANEMIA IN CHRONIC KIDNEY DISEASE Status: Chronic Comment: stable (4) CAD (coronary artery disease) Code(s): I25.10 - ATHSCL HEART DISEASE OF [place] CORONARY ARTERY W/O ANG PCTRS Status: Chronic Qualifiers: Coronary Disease-Associated Artery/Lesion type: [place] artery [place] vs. transplanted heart: [place] heart Associated angina: without angina Qualified Code(s): I25.10 - Atherosclerotic heart disease of [place] coronary artery without angina pectoris Comment: stable (5) DM2 (diabetes mellitus, type 2) Status: Chronic Qualifiers: Chronic kidney disease stage: on chronic dialysis Comment: (6) ESRD (end stage renal disease) on dialysis Code(s): N18.6 - END STAGE RENAL DISEASE; Z99.2 - DEPENDENCE ON RENAL DIALYSIS Status: Chronic (7) Gout Code(s): M10.9 - GOUT, UNSPECIFIED Status: Chronic Qualifiers: Gout site: unspecified site Comment: No Exacerbation noted. (8) Hypertension Code(s): I10 - ESSENTIAL (PRIMARY) HYPERTENSION Status: Chronic Qualifiers: Hypertension type: essential hypertension Qualified Code(s): I10 - Essential (primary) hypertension (9) Lymphedema Code(s): I89.0 - LYMPHEDEMA, NOT ELSEWHERE CLASSIFIED Status: Chronic (10) Morbid obesity due to excess calories Code(s): E66.01 - MORBID (SEVERE) OBESITY DUE TO EXCESS CALORIES Status: Chronic (11) Obesity hypoventilation syndrome Code(s): E66.2 - MORBID (SEVERE) OBESITY WITH ALVEOLAR HYPOVENTILATION Status : Chronic (12) Paroxysmal a-fib Code(s): I48.0 - PAROXYSMAL ATRIAL FIBRILLATION Status: Chronic Comment: cary Reyes (13) Constipation Code(s): K59.00 - CONSTIPATION, UNSPECIFIED Status: Acute - Plan cont current plan of care, PT/OT * add miralax bid * add senna bid * HD as per nephrology * medication reviewed as below * symptomatic treatment. Review of Systems - Review of Systems Eyes: negative: Pain, Vision Change, Conjunctivae Inflammation, Eyelid Inflammation, Redness, Other ENT: negative: Ear Pain, Ear Discharge, Nose Pain, Nose Discharge, Nose Congestion, Mouth Pain, Mouth Swelling, Throat Pain, Throat Swelling, Other Respiratory: negative: Cough, Dry, Shortness of Breath, Hemoptysis, SOB with Excertion, Pleuritic Pain, Sputum, Wheezing Cardiovascular: negative: chest pain, palpitations, orthopnea, paroxysmal nocturnal dyspnea, edema, light headedness, other Gastrointestinal: Constipation. negative: Nausea, Vomiting, Abdominal Pain, Diarrhea, Melena, Hematochezia, Other Genitourinary: negative: Dysuria, Frequency, Incontinence, Hematuria, Retention , Other Musculoskeletal: negative: Neck Pain, Shoulder Pain, Arm Pain, Back Pain, Hand Pain, Leg Pain, Foot Pain, Other Skin: negative: Rash, Lesions, Freddy, Bruising, Other - Medications/Allergies Allergies/Adverse Reactions: Allergies Allergy/AdvReac Type Severity Reaction Status Date / Time quinapril HCl [From Accupril] Allergy Verified 11/05/18 03:21 Medications: Current Medications Acetaminophen (Tylenol) 650 mg PO Q4H PRN PRN Reason: Headache/Fever/Mild Pain (1-3) Atorvastatin Calcium (Lipitor) 20 mg PO HS [facility] Last Admin: 12/02/18 20:13 Dose: 20 mg Benzonatate (Tessalon) 100 mg PO Q4H PRN PRN Reason: Cough Dextrose/Water (Dextrose 50%) 25 gm SLOW IVP PRN PRN PRN Reason: Hypoglycemia Docusate Sodium (Colace) 100 mg PO BID [facility] Last Admin: 12/03/18 08:55 Dose: 100 mg Gabapentin (Neurontin) 100 mg PO TID [facility] Last Admin: 12/03/18 08:54 Dose: 100 mg Glucagon (Glucagon) 1 mg IM PRN PRN PRN Reason: Hypoglycemia Heparin Sodium (Porcine) (Heparin) 5,000 units SC TID [facility] Last Admin: 12/03/18 08:56 Dose: 5,000 units Dextrose/Water (D5w) 1,000 mls @ 0 mls/hr IV .Q0M PRN PRN Reason: Hypoglycemia Insulin Human Lispro (Humalog) 0 units SC .MILD SLIDING SCALE PRN PRN Reason: Mild Correctional Scale Last Admin: 11/30/18 11:41 Dose: 2 unit Lactulose (Lactulose) 20 gm PO DAILYPRN PRN PRN Reason: Constipation Levothyroxine Sodium (Synthroid) 88 mcg PO DAILY [facility] Last Admin: 12/03/18 08:54 Dose: 88 mcg Lidocaine (Lidoderm 5% Patch) 1 patch TD DAILY [facility] Last Admin: 12/03/18 08:56 Dose: 1 patch Lorazepam (Ativan) 0.5 mg PO BID PRN PRN Reason: Anxiety Last Admin: 11/30/18 04:12 Dose: 0.5 mg Midodrine (Proamatine) 5 mg PO DAILY [facility] Last Admin: 12/03/18 08:55 Dose: 5 mg Miscellaneous Medication (Lidocaine Patch Removal) 1 each TOP 2100 [facility] Last Admin: 12/02/18 20:15 Dose: 1 each Hold Vancomycin For (Level >20) 0 each FS .AT DIALYSIS [facility] Nystatin (Mycostatin Powder) 0 gm TOP BID [facility] Last Admin: 12/03/18 08:58 Dose: 1 applic Ondansetron HCl (Zofran Odt) 4 mg PO Q6H PRN PRN Reason: Nausea/Vomiting Oxymetazoline HCl (Nasal Decongestant) 0 ml NS BID PRN PRN Reason: Congestion Pantoprazole Sodium (Protonix) 40 mg PO DAILY [facility] Last Admin: 12/03/18 08:55 Dose: 40 mg Polyethylene Glycol (Miralax) 17 gm PO DAILY [facility] Last Admin: 12/03/18 08:58 Dose: 17 gm Ropinirole HCl (Requip) 4 mg PO HS [facility] Last Admin: 12/02/18 20:18 Dose: 4 mg Senna (Senokot) 2 tab PO HSPRN PRN PRN Reason: Constipation Last Admin: 11/30/18 20:03 Dose: 2 tab Sertraline HCl (Zoloft) 25 mg PO DAILY [facility] Last Admin: 12/03/18 08:54 Dose: 25 mg Sevelamer Carbonate (Renvela) 1,600 mg PO TID-WM [facility] Last Admin: 12/03/18 08:55 Dose: 1,600 mg Sodium Chloride (Flush - Normal Saline) 10 ml IVF Q12HR [facility] Last Admin: 12/03/18 08:59 Dose: 10 ml Sodium Chloride (Flush - Normal Saline) 10 ml IVF PRN PRN PRN Reason: Saline Flush Last Admin: 11/30/18 09:29 Dose: 10 ml Tramadol HCl (Ultram) 50 mg PO Q6HR PRN PRN Reason: Pain Last Admin: 12/01/18 21:06 Dose: 50 mg
[2018-12-03] MEDS: Benzonatate 100 MG CAP PO PRN (11:37)
--- NOTE | 2018-12-03 12:15 | PRG ---
DATE OF SERVICE: 12/03/2018 SUBJECTIVE: Patient was seen and examined at bedside and overnight events noted. Patient denies any shortness of breath or chest pain or palpitation. No history of nausea or vomiting or diarrhea or fever or chills or cramps. OBJECTIVE: GENERAL: This is a morbidly obese male, in no apparent distress. VITAL SIGNS: Temperature 98.3, heart rate 82, respiratory rate 18, blood pressure 126/84. HEENT: Atraumatic, normocephalic. Oral mucosa is moist NECK: Supple. CARDIOVASCULAR: S1, S2 heard. Rate and rhythm regular. RESPIRATORY: Clear to auscultation. GASTROINTESTINAL: Abdomen is soft. MUSCULOSKELETAL: No tenderness. No edema. DERMATOLOGIC: No skin rash. NEUROLOGIC: Alert and awake and oriented X3. No focal neurologic deficits. Moving all the extremities. PSYCHIATRIC: Mood and affect normal. LABORATORY DATA: Not done today. ASSESSMENT AND PLAN: 1. End-stage renal disease. Continue on hemodialysis. 2. Edema. 3. Morbid obesity. 4. Anemia of chronic disease. 5. We will remove fluid with dialysis as tolerated. Job ID: [id number]
[2018-12-03] MEDS: traMADol HCl 50 MG TAB PO PRN (14:38)
[2018-12-03] MEDS: rOPINIRole HCl 2 MG TAB PO SCH (21:51)
[2018-12-03] MEDS: Atorvastatin Calcium 20 MG TAB PO SCH (21:52)
[2018-12-03] MEDS: Senokot S 8.6-50 MG TAB PO SCH (21:52)
[2018-12-03] MEDS: Lidocaine Patch Removal 1 EACH TOP SCH (21:52)
[2018-12-04] MEDS: Benzonatate 100 MG CAP PO PRN (06:06)
[2018-12-04 07:40] VITALS: BP 121/81; TEMP 98.1
[2018-12-04] MEDS: Midodrine HCl 5 MG TAB PO SCH (08:49)
[2018-12-04] MEDS: Docusate 100 MG CAP PO SCH (08:50)
[2018-12-04] MEDS: Levothyroxine Sodium 88 MCG TAB PO SCH (08:50)
[2018-12-04] MEDS: Gabapentin 100 MG CAP PO SCH ×2 (08:50→16:46)
[2018-12-04] MEDS: Senokot S 8.6-50 MG TAB PO SCH (08:50)
[2018-12-04] MEDS: traMADol HCl 50 MG TAB PO PRN ×2 (08:51→16:48)
[2018-12-04] MEDS: Sevelamer Carbonate 800 MG TAB PO SCH ×3 (08:51→16:46)
[2018-12-04] MEDS: Lidocaine 5% Patch TD SCH (08:52)
[2018-12-04] MEDS: Heparin 5,000 UNITS/ML VIAL SC SCH ×2 (08:59→16:46)
[2018-12-04] MEDS: Nystatin Powder 15 GM BOT TOP SCH (09:01)
--- NOTE | 2018-12-04 09:31 | PDOC.PN ---
- Subjective Encounter Start Date: 12/04/18 Encounter Start Time: 07:50 Patient seen and examined. No new complaints. No overnight events - Objective Resuscitation Status - Order Detail: 11/29/18 04:00 Resuscitation Status Routine Resuscitation Status: FULL: Full Resuscitation MAR Reviewed: Yes Vital Signs & Weight: Vital Signs (12 hours) Temp Pulse Resp BP Pulse Ox 12/04/18 07:38 98.1 F 90 96 H 121/81 22 L Weight Weight 339 lb 8.19 oz Most Recent Monitor Data Heart Rate from ECG 85 NIBP 111/73 NIBP BP-Mean 85 Respiration from ECG 18 SpO2 82 Result Diagrams: 11/30/18 04:37 11/30/18 04:37 Additional Labs: Accuchecks 12/04/18 12/03/18 12/03/18 05:11 20:10 16:15 POC Glucose 148 H 172 H 151 H 12/03/18 12/03/18 11:22 05:12 POC Glucose 144 H 146 H Phys Exam - Physical Examination Constitutional: NAD HEENT: PERRLA, moist MMs, sclera anicteric Neck: no JVD, supple Respiratory: no wheezing, no rales, no rhonchi Cardiovascular: RRR, no significant murmur, no rub Gastrointestinal: soft, non-tender, no distention, positive bowel sounds Musculoskeletal: no edema, pulses present Neurological: non-focal Lymphatic: no nodes Psychiatric: normal affect Skin: no rash, normal turgor Dx/Plan (1) Acute on chronic respiratory failure with hypoxia and hypercapnia Code(s): J96.21 - ACUTE AND CHRONIC RESPIRATORY FAILURE WITH HYPOXIA; J96.22 - ACUTE AND CHRONIC RESPIRATORY FAILURE WITH HYPERCAPNIA Status: Acute Comment : (2) Volume overload Code(s): E87.70 - FLUID OVERLOAD, UNSPECIFIED Status: Acute (3) Anemia of renal disease Code(s): D63.1 - ANEMIA IN CHRONIC KIDNEY DISEASE Status: Chronic Comment: stable (4) CAD (coronary artery disease) Code(s): I25.10 - ATHSCL HEART DISEASE OF [place] CORONARY ARTERY W/O ANG PCTRS Status: Chronic Qualifiers: Coronary Disease-Associated Artery/Lesion type: [place] artery [place] vs. transplanted heart: [place] heart Associated angina: without angina Qualified Code(s): I25.10 - Atherosclerotic heart disease of [place] coronary artery without angina pectoris Comment: stable (5) DM2 (diabetes mellitus, type 2) Status: Chronic Qualifiers: Chronic kidney disease stage: on chronic dialysis Comment: (6) ESRD (end stage renal disease) on dialysis Code(s): N18.6 - END STAGE RENAL DISEASE; Z99.2 - DEPENDENCE ON RENAL DIALYSIS Status: Chronic (7) Gout Code(s): M10.9 - GOUT, UNSPECIFIED Status: Chronic Qualifiers: Gout site: unspecified site Comment: No Exacerbation noted. (8) Hypertension Code(s): I10 - ESSENTIAL (PRIMARY) HYPERTENSION Status: Chronic Qualifiers: Hypertension type: essential hypertension Qualified Code(s): I10 - Essential (primary) hypertension (9) Lymphedema Code(s): I89.0 - LYMPHEDEMA, NOT ELSEWHERE CLASSIFIED Status: Chronic (10) Morbid obesity due to excess calories Code(s): E66.01 - MORBID (SEVERE) OBESITY DUE TO EXCESS CALORIES Status: Chronic (11) Obesity hypoventilation syndrome Code(s): E66.2 - MORBID (SEVERE) OBESITY WITH ALVEOLAR HYPOVENTILATION Status : Chronic (12) Paroxysmal a-fib Code(s): I48.0 - PAROXYSMAL ATRIAL FIBRILLATION Status: Chronic Comment: on Amy (13) Constipation Code(s): K59.00 - CONSTIPATION, UNSPECIFIED Status: Acute - Plan cont current plan of care * today HD * medication reviewed as below * symptomatic treatment * will consider discharge later today. Review of Systems - Review of Systems ENT: negative: Ear Pain, Ear Discharge, Nose Pain, Nose Discharge, Nose Congestion, Mouth Pain, Mouth Swelling, Throat Pain, Throat Swelling, Other Respiratory: negative: Cough, Dry, Shortness of Breath, Hemoptysis, SOB with Excertion, Pleuritic Pain, Sputum, Wheezing Cardiovascular: negative: chest pain, palpitations, orthopnea, paroxysmal nocturnal dyspnea, edema, light headedness, other Gastrointestinal: negative: Nausea, Vomiting, Abdominal Pain, Diarrhea, Constipation, Melena, Hematochezia, Other Genitourinary: negative: Dysuria, Frequency, Incontinence, Hematuria, Retention , Other Musculoskeletal: negative: Neck Pain, Shoulder Pain, Arm Pain, Back Pain, Hand Pain, Leg Pain, Foot Pain, Other - Medications/Allergies Allergies/Adverse Reactions: Allergies Allergy/AdvReac Type Severity Reaction Status Date / Time quinapril HCl [From Accupril] Allergy Verified 11/05/18 03:21 Medications: Current Medications Acetaminophen (Tylenol) 650 mg PO Q4H PRN PRN Reason: Headache/Fever/Mild Pain (1-3) Atorvastatin Calcium (Lipitor) 20 mg PO HS [facility] Last Admin: 12/03/18 21:52 Dose: 20 mg Benzonatate (Tessalon) 100 mg PO Q4H PRN PRN Reason: Cough Last Admin: 12/04/18 06:06 Dose: 100 mg Dextrose/Water (Dextrose 50%) 25 gm SLOW IVP PRN PRN PRN Reason: Hypoglycemia Docusate Sodium (Colace) 100 mg PO BID [facility] Last Admin: 12/04/18 08:50 Dose: 100 mg Gabapentin (Neurontin) 100 mg PO TID [facility] Last Admin: 12/04/18 08:50 Dose: 100 mg Glucagon (Glucagon) 1 mg IM PRN PRN PRN Reason: Hypoglycemia Heparin Sodium (Porcine) (Heparin) 5,000 units SC TID [facility] Last Admin: 12/04/18 08:59 Dose: 5,000 units Dextrose/Water (D5w) 1,000 mls @ 0 mls/hr IV .Q0M PRN PRN Reason: Hypoglycemia Insulin Human Lispro (Humalog) 0 units SC .MILD SLIDING SCALE PRN PRN Reason: Mild Correctional Scale Last Admin: 11/30/18 11:41 Dose: 2 unit Lactulose (Lactulose) 20 gm PO DAILYPRN PRN PRN Reason: Constipation Levothyroxine Sodium (Synthroid) 88 mcg PO DAILY [facility] Last Admin: 12/04/18 08:50 Dose: 88 mcg Lidocaine (Lidoderm 5% Patch) 1 patch TD DAILY [facility] Last Admin: 12/04/18 08:52 Dose: 1 patch Lorazepam (Ativan) 0.5 mg PO BID PRN PRN Reason: Anxiety Last Admin: 11/30/18 04:12 Dose: 0.5 mg Midodrine (Proamatine) 5 mg PO DAILY [facility] Last Admin: 12/04/18 08:49 Dose: 5 mg Miscellaneous Medication (Lidocaine Patch Removal) 1 each TOP 2100 [facility] Last Admin: 12/03/18 21:52 Dose: 1 each Hold Vancomycin For (Level >20) 0 each FS .AT DIALYSIS [facility] Nystatin (Mycostatin Powder) 0 gm TOP BID [facility] Last Admin: 12/04/18 09:01 Dose: Not Given Ondansetron HCl (Zofran Odt) 4 mg PO Q6H PRN PRN Reason: Nausea/Vomiting Oxymetazoline HCl (Nasal Decongestant) 0 ml NS BID PRN PRN Reason: Congestion Pantoprazole Sodium (Protonix) 40 mg PO DAILY [facility] Last Admin: 12/04/18 08:49 Dose: 40 mg Polyethylene Glycol (Miralax) 17 gm PO BID [facility] Last Admin: 12/03/18 21:52 Dose: 17 gm Ropinirole HCl (Requip) 4 mg PO HS [facility] Last Admin: 12/03/18 21:51 Dose: 4 mg Senna/Docusate Sodium (Senokot S) 1 tab PO BID [facility] Last Admin: 12/04/18 08:50 Dose: 1 tab Sertraline HCl (Zoloft) 25 mg PO DAILY [facility] Last Admin: 12/04/18 08:50 Dose: 25 mg Sevelamer Carbonate (Renvela) 1,600 mg PO TID-WM [facility] Last Admin: 12/04/18 08:51 Dose: 1,600 mg Sodium Chloride (Flush - Normal Saline) 10 ml IVF Q12HR [facility] Last Admin: 12/04/18 09:01 Dose: 10 ml Sodium Chloride (Flush - Normal Saline) 10 ml IVF PRN PRN PRN Reason: Saline Flush Last Admin: 11/30/18 09:29 Dose: 10 ml Tramadol HCl (Ultram) 50 mg PO Q6HR PRN PRN Reason: Pain Last Admin: 12/04/18 08:51 Dose: 50 mg
[2018-12-04] MEDS: Polyethylene Glycol 3350 17 GM Packet PO SCH (10:14)
--- NOTE | 2018-12-04 10:22 | DIS ---
DATE OF ADMISSION: 11/29/2018 DATE OF DISCHARGE: 12/04/2018 PRIMARY CARE PHYSICIAN: Dr. Ortiz. DISCHARGE DISPOSITION: [facility]. PRIMARY DISCHARGE DIAGNOSES: 1. Volume overload, resolved. 2. Constipation, treated in the hospital. 3. Acute on chronic respiratory failure with hypoxia. SECONDARY DISCHARGE DIAGNOSES: Paroxysmal atrial fibrillation, obesity, hypoventilation syndrome, morbid obesity with BMI 53, chronic lymphoedema, hypertension, gout, end-stage renal disease on hemodialysis, diabetes type 2, coronary artery disease, anemia of renal disease. PRIMARY PROCEDURE/OPERATION: Hemodialysis. RADIOLOGICAL INVESTIGATION: Chest x-ray showed pulmonary vascular congestion. Echocardiography showed EF 50% to 55%. SIGNIFICANT LABORATORY DATA: WBC 7.4, hemoglobin 9, platelet 253. Sodium 136, potassium 4, BUN 28, creatinine 2.95, and calcium 9.5. DISCHARGE MEDICATIONS: 1. Tylenol one or two tablets q.6 hourly p.r.n. 2. Tramadol 50 mg q.6 hourly p.r.n. 3. Colace 100 mg daily. 4. NovoLog insulin as per sliding scale. 5. Lantus insulin 5 units subcu daily. 6. Synthroid 88 mcg p.o. daily. 7. Lidoderm patch daily. 8. Lorazepam 0.5 mg b.i.d. p.r.n. 9. Toprol-XL 12.5 mg p.o. daily. 10. Protonix 40 mg p.o. daily. 11. MiraLAX 17 g daily. 12. Ropinirole 4 mg p.o. at bedtime. 13. Zoloft 25 mg p.o. daily. 14. Renvela 800 mg two tablets t.i.d. 15. Lipitor 20 mg p.o. daily. 16. Tessalon 100 mg q.4 hourly p.r.n. 17. Procrit as directed. 18. Gabapentin 100 mg t.i.d. 19. Mycostatin powder topical application b.i.d. 20. Afrin nasal spray as needed. CONTRAINDICATION: None. CODE STATUS: Full code. INPATIENT ASSISTANT REAL ESTATE MANAGER: Dr. Mejia was following while in hospital. Dr. Juárez was following while in hospital. TEST RESULTS PENDING ON DISCHARGE: None. ALLERGIES: QUINAPRIL. DISCHARGE PLAN: Posthospital, the patient will follow up with primary care physician in one week. HOSPITAL COURSE: A 58-year-old male, who was admitted by Dr. Carlson. Please see his H and P for further details. The patient was having volume overload and severe constipation. The patient required hemodialysis while in hospital and his constipation was treated with medicine. This patient remained stable after dialysis while in hospital. Today, the patient is planned for discharge back to shelter for more PT/OT. The patient was seen and examined at bedside today. Please see my progress note from today for further detail. Job ID: [id number]
[2018-12-04 12:06] LABS: #Eosinphils 0.2 thou/uL (0.0-0.7); #Monocytes 0.4 thou/uL (0.11-0.59); %Basophils 0.3 % (0.0-1.0); %Eosinophils 3.2 % (0.0-10.0); %Lymphocytes 17.4 % (21.0-51.0); %Monocytes 6.8 % (0.0-10.0); %Neutrophils 72.2 % (42.0-75.0); Hemoglobin 9.5 g/dL (14.0-18.0); MDiff Complete? YES; Mean Corpuscular HGB CONC 30.7 g/dL (32.0-36.0); Mean Corpuscular Hemoglobin 28.6 pg (27.0-31.0); Mean Corpuscular Volume 93.1 fL (78.0-98.0); Mean Platelet Volume 8.1 fL (7.4-10.4); Platelet Count 205 thou/uL (130-400); Polychromasia SLIGHT = 2-3 cells (100X) (0-2/hpf); Red Blood Cell (RBC) Count 3.32 mill/uL (4.70-6.10); White Blood Cell (WBC) Count 5.5 thou/uL (4.8-10.8)
[2018-12-04 12:55] LABS: ALT (SGPT) Less than 7 U/L (8-55); AST (SGOT) 8 U/L (5-34); Alkaline Phosphatase 104 U/L (40-150); Anion Gap 14 mmol/L (10-20); BUN (Urea Nitrogen) 30 mg/dL (8.4-25.7); Bilirubin, Total 0.7 mg/dL (0.2-1.2); Calc. Creatinine Clearance 59 mL/min (70-130); Carbon Dioxide 27 mmol/L (22-29); Chloride 94 mmol/L (98-107); Estimated GFR-MDRD 22; Globulin 3.3 g/dL (2.4-3.5); Glucose 117 mg/dL (70-105); Potassium 3.8 mmol/L (3.5-5.1); Protein, Total 6.3 g/dL (6.0-8.3); Sodium 131 mmol/L (136-145)
--- NOTE | 2018-12-04 13:17 | PRG ---
DATE OF SERVICE: 12/04/2018 SUBJECTIVE: This is a 58-year-old gentleman being seen for end-stage renal disease. The patient denies nausea, vomiting, or chest pain. OBJECTIVE: VITAL SIGNS: breathing 16, blood pressure 121/83. Awake, alert, in no acute distress. GENERAL APPEARANCE AND MENTAL STATUS: Fair. HEAD/NECK: Normocephalic. Atraumatic. EYES: EOMI. No deformity. EARS: Clear. No ulcers. NOSE: Intact. No lesions. MOUTH: Clear. No discharge. THROAT: Clear. No exudate. LUNGS: Clear. No crackles. CARDIAC: S1, S2. No rub. ABDOMEN: Benign. Bowel sounds positive. GENITALIA/RECTUM: [place] absent. BACK/EXTREMITIES: Edema 0+. NEUROLOGICAL: Alert and motor intact. SKIN: LYMPHATICS: IMPRESSION: 1. Stage 3 chronic kidney disease. We will continue hemodialysis. 2. Hypertensive, stable. 3. Anemia, stable. 4. Discharge planning is in progress. Job ID: [id number]
--- NOTE | 2018-12-05 13:49 | HP ---
CHIEF COMPLAINT: Shortness of breath. HISTORY OF PRESENT ILLNESS: The patient is a 58-year-old male patient with past medical history of end-stage renal disease. The patient came to the hospital after having shortness of breath, associated with constipation. The patient usually is in 3 L nasal cannula; the saturation had dropped in the 80s and the patient was placed in nonrebreather, also was placed on BiPAP to improve respiratory function. The patient is unable to give much history. REVIEW OF SYSTEMS: CONSTITUTIONAL: No fever or chills. The patient reported generalized weakness. RESPIRATORY: Cough, sputum production is scant. The patient has shortness of breath. CARDIOVASCULAR: No chest pain or palpitation. GASTROINTESTINAL: No nausea. No vomiting, diarrhea, or abdominal pain. The patient reported constipation. CENTRAL NERVOUS SYSTEM: No lesion. GENITOURINARY: No burning on urination. The patient is a dialysis patient. PAST MEDICAL HISTORY: Positive for coronary artery disease, CHF, arrhythmia, atrial fibrillation, diabetes, hypothyroidism, hypertension, osteoarthritis, kidney failure, hypoxia, pneumonia, hyperparathyroidism, UTI, and iron deficiency anemia. PAST SURGICAL HISTORY: Appendectomy, tonsillectomy, left leg surgery, shunt of the right arm, and fistula placed in the right arm. PSYCHIATRIC HISTORY: Includes anxiety and depression. SOCIAL HISTORY: No drugs. No smoking history. The patient lives at [facility]. KNOWN ALLERGIES: Positive for Accupril. REPORTED MEDICATIONS: 1. Procrit. 2. Lantus. 3. NovoLog. 4. Eliquis. 5. Atorvastatin. 6. Docusate sodium. 7. Levothyroxine. 8. . 9. Metoprolol. 10. Pantoprazole. 11. Polyethylene glycol. 12. Augmentin. 13. Sertraline. 14. Omnicef. 15. Gabapentin. 16. Sevelamer carbonate. 17. Ropinirole. PHYSICAL EXAMINATION: VITAL SIGNS: On presentation, heart rate 95, respiratory rate was 20, oxygen saturation was 96, and blood pressure 111/53. GENERAL APPEARANCE: The patient is alert. HEENT: Eyes; normal conjunctivae. Moist oral mucosa. Anicteric. NECK: Bilateral JVD. RESPIRATORY: Bilateral air entry. No rales. The patient has wheezing bilaterally and rhonchi. Symmetric expansion. CARDIOVASCULAR: Normal rate. Regular rhythm. No murmurs. No gallop. Bilateral leg edema. ABDOMEN: Soft. Normal bowel sounds. MUSCULOSKELETAL: Baseline range of motion and strength. No tenderness. SKIN: Warm and intact. No pallor. No rash. No redness. EXTREMITIES: Peripheral pulses are present. Capillary refill seems to intact. NEURO: No evidence of any new focal weakness. Baseline speech. Cranial nerves seems to be intact. PSYCH: Unable to fully explore. IMAGING DATA: EKG as discussed with the performing physician from the ER showed normal sinus rhythm with a rate of 93 with sinus arrhythmia. No change. Low-voltage QRS. Chest x-ray was negative. Abdomen KUB was negative. LABORATORY DATA: Labs were reviewed. The patient has white count of 6.3, hemoglobin 9.6, MCV 97, and platelet count 240. Chemistry was reviewed; sodium was 135, potassium 4.6, chloride 94, carbon dioxide 28, anion gap of 18, BUN 35, creatinine 3.61, glucose 121, calcium 9.1, total bilirubin 0.6, AST 16, ALT less than 7, and alkaline phosphatase 94. CK 18; troponin was 0.064, the second one 0.054. Beta natriuretic peptide 2438. Albumin 3.0, globulin 3.9, uwgicrc-lf-brytjoxt ratio is 0.8. Serum total protein 6.9. Lipase 62. ASSESSMENT AND PLAN: The patient is placed in the hospital with following medical problems; 1. Acute on chronic respiratory failure. The patient needed BiPAP to keep saturation above 90. The patient will be placed in ICU for that reason. We will consult ICU for assistance with outpatient. Also, Nephrology to see the patient for any further recommendation. 2. End-stage renal disease. Dr. Mejia has been consulted. We will follow recommendations. 3. Non-ST elevation myocardial infarction, type 2. The patient has mild leak of troponin, in the range of 0.064 and 0.054, we will continue to trend, we will adjust treatment as needed. 4. Uncontrolled diabetes with sugar in the high side. We will reconcile home medications. Place the patient on sliding scale. 5. Hyponatremia. Sodium 135, this is mild, no need for any acute intervention. We will treat accordingly. 6. High risk due to acute hypoxic respiratory failure. 7. Deep venous thrombosis prophylaxis. Job ID: [id number]
--- NOTE | 2018-12-16 12:52 | EKG ---
Test Reason : STAT Blood Pressure : / mmHG Vent. Rate : 093 BPM Atrial Rate : 093 BPM P-R Int : 166 ms QRS Dur : 044 ms QT Int : 270 ms P-R-T Axes : -24 060 -24 degrees QTc Int : 335 ms Normal sinus rhythm with sinus arrhythmia Low voltage QRS Abnormal ECG No changes from 15-NOV-2017 Confirmed by AMELIA VILLASENOR, BEBE (12), assistant film editor RENÉ ALEXANDER ([id number]) on 12/16/2018 12:52:21 PM Referred By: Confirmed By:BEBE CISNEROS MD
== END 2018-12-04 18:13 | DRG 189 ==
LOC: ERS 00:44 → ERHOLD 03:35 → CCU 06:41 → T4-A 11-30 12:56
PROVIDERS: ADMIT Hospitalist; ATTEND Hospitalist
PROC: 5A1D70Z Performance of Urinary Filtration, Intermittent, Less than 6 Hours Per Day (ICD-10-PCS; principal; 2018-11-29)
PROC: 5A09357 Assistance with Respiratory Ventilation, Less than 24 Consecutive Hours, Continuous Positive Airway Pressure (ICD-10-PCS; 2018-11-29)
PROC: 5A1D70Z Performance of Urinary Filtration, Intermittent, Less than 6 Hours Per Day (ICD-10-PCS; 2018-12-01)
PROC: 5A1D70Z Performance of Urinary Filtration, Intermittent, Less than 6 Hours Per Day (ICD-10-PCS; 2018-12-04)
DX: J96.21 Acute and chronic respiratory failure with hypoxia (principal); N18.6 End stage renal disease; E66.2 Morbid (severe) obesity with alveolar hypoventilation; Z68.43 Body mass index [BMI] 50.0-59.9, adult; I13.2 Hypertensive heart and chronic kidney disease with heart failure and with stage 5 chronic kidney disease, or end stage renal disease; I50.22 Chronic systolic (congestive) heart failure; E87.1 Hypo-osmolality and hyponatremia; E87.70 Fluid overload, unspecified; J96.22 Acute and chronic respiratory failure with hypercapnia; I95.9 Hypotension, unspecified; E11.22 Type 2 diabetes mellitus with diabetic chronic kidney disease; I48.0 Paroxysmal atrial fibrillation; E11.65 Type 2 diabetes mellitus with hyperglycemia; K59.00 Constipation, unspecified; D63.1 Anemia in chronic kidney disease; I25.10 Atherosclerotic heart disease of native coronary artery without angina pectoris; I89.0 Lymphedema, not elsewhere classified; E03.9 Hypothyroidism, unspecified; F41.9 Anxiety disorder, unspecified; F32.9 Major depressive disorder, single episode, unspecified; I25.2 Old myocardial infarction; Z99.2 Dependence on renal dialysis; Z88.8 Allergy status to other drugs, medicaments and biological substances; Z79.01 Long term (current) use of anticoagulants; Z79.4 Long term (current) use of insulin; Z79.899 Other long term (current) drug therapy
CPT/HCPCS: 36416; 36556; 71045; 74018; 80048; 80053; 82550; 82553; 83605; 83690; 83880; 84484; 85025; 87040; 87804; 90935; 93005; 93306; 94660; 96365; 96366; 96367; 96368; 96375; G0257; J1100; J1644; J1956; J3370; J7611; P9047

== ENCOUNTER 2018-12-10 23:06 | Observation (INO) | payer MEDICARE, MEDICAID ==
--- NOTE | 2018-12-10 23:43 | RAD ---
PORTABLE CHEST ONE VIEW: 12/10/2018 11:30 p.m. HISTORY: Chest pain. COMPARISON: 11/29/2018 FINDINGS: The patient is rotated to the left. The heart is enlarged. There is pulmonary vascular congestion. No pneumothoraces or large effusions are seen. Mild parenchymal changes in the visualized lung fiel ds are again seen. POS: [facility]
[2018-12-11 00:01] LABS: Hemoglobin 10.3 g/dL (14.0-18.0); Mean Corpuscular HGB CONC 29.2 g/dL (32.0-36.0); Mean Corpuscular Hemoglobin 27.8 pg (27.0-31.0); Mean Corpuscular Volume 95.4 fL (78.0-98.0); Mean Platelet Volume 7.7 fL (7.4-10.4); Platelet Count 256 thou/uL (130-400); RBC Distribution Width 16.9 % (11.5-14.5); Red Blood Cell (RBC) Count 3.71 mill/uL (4.70-6.10); White Blood Cell (WBC) Count 5.7 thou/uL (4.8-10.8)
[2018-12-11 00:20] LABS: #Eosinphils 0.2 thou/uL (0.0-0.7); #Lymphocytes 1.1 thou/uL (1.20-3.40); #Monocytes 0.5 thou/uL (0.11-0.59); %Basophils 0.1 % (0.0-1.0); %Eosinophils 2.8 % (0.0-10.0); %Lymphocytes 19.8 % (21.0-51.0); %Monocytes 8.5 % (0.0-10.0); %Neutrophils 68.8 % (42.0-75.0); Platelet Morphology Comment Appears Adequate
[2018-12-11 00:24] LABS: ALT (SGPT) 7 U/L (8-55); AST (SGOT) 15 U/L (5-34); Albumin 3.1 g/dL (3.5-5.0); Alkaline Phosphatase 127 U/L (40-150); Anion Gap 14 mmol/L (10-20); BUN (Urea Nitrogen) 39 mg/dL (8.4-25.7); Bilirubin, Total 0.6 mg/dL (0.2-1.2); Calc. Creatinine Clearance 0 mL/min (70-130); Calcium 9.4 mg/dL (7.8-10.44); Carbon Dioxide 31 mmol/L (22-29); Chloride 95 mmol/L (98-107); Estimated GFR-MDRD 17; Globulin 3.8 g/dL (2.4-3.5); Glucose 127 mg/dL (70-105); Potassium 4.3 mmol/L (3.5-5.1); Protein, Total 6.9 g/dL (6.0-8.3); Sodium 136 mmol/L (136-145)
[2018-12-11 03:59] LABS: CKMB 1.8 ng/mL (0-6.6)
[2018-12-11] MEDS ORDERED: Acetaminophen 325 MG TAB PO PRN (12:42)
[2018-12-11] MEDS ORDERED: Acetaminophen 650 MG Suppository PR PRN (12:42)
[2018-12-11] MEDS ORDERED: Dextrose 50% Abboject 50 ML SYRINGE SLOW IVP PRN (13:28)
[2018-12-11] MEDS ORDERED: HumaLOG 300 UNITS/3 ML VIAL SC PRN ×2 (13:28)
[2018-12-11] MEDS ORDERED: Dextrose 5% in Water 1,000 ML IV PRN (13:28)
[2018-12-11 13:32] LABS: #Eosinphils 0.2 thou/uL (0.0-0.7); #Lymphocytes 1.1 thou/uL (1.20-3.40); #Monocytes 0.5 thou/uL (0.11-0.59); #Neutrophils 4.4 thou/uL (1.40-6.50); %Basophils 0.5 % (0.0-1.0); %Eosinophils 2.7 % (0.0-10.0); %Lymphocytes 17.8 % (21.0-51.0); %Monocytes 7.2 % (0.0-10.0); %Neutrophils 71.7 % (42.0-75.0); Hemoglobin 9.7 g/dL (14.0-18.0); Mean Corpuscular HGB CONC 29.7 g/dL (32.0-36.0); Mean Corpuscular Volume 94.2 fL (78.0-98.0); Mean Platelet Volume 7.8 fL (7.4-10.4); Platelet Count 267 thou/uL (130-400); Red Blood Cell (RBC) Count 3.44 mill/uL (4.70-6.10); White Blood Cell (WBC) Count 6.2 thou/uL (4.8-10.8)
[2018-12-11 13:53] LABS: ALT (SGPT) Less than 7 U/L (8-55); AST (SGOT) 10 U/L (5-34); Alkaline Phosphatase 123 U/L (40-150); Anion Gap 16 mmol/L (10-20); BUN (Urea Nitrogen) 42 mg/dL (8.4-25.7); Bilirubin, Total 0.6 mg/dL (0.2-1.2); Calc. Creatinine Clearance 0 mL/min (70-130); Calcium 9.2 mg/dL (7.8-10.44); Carbon Dioxide 31 mmol/L (22-29); Chloride 93 mmol/L (98-107); Estimated GFR-MDRD 16; Globulin 3.6 g/dL (2.4-3.5); Glucose 141 mg/dL (70-105); Potassium 4.5 mmol/L (3.5-5.1); Protein, Total 6.6 g/dL (6.0-8.3); Sodium 135 mmol/L (136-145)
[2018-12-11] MEDS: Heparin 5,000 UNITS/ML VIAL SC SCH ×2 (18:39→20:29)
[2018-12-11 18:42] VITALS: BMI 58.6
--- NOTE | 2018-12-11 19:35 | HP ---
REASON FOR ADMISSION: Shortness of breath. HISTORY OF PRESENT ILLNESS AND REVIEW OF SYSTEMS: Mr. Lyons is a 58-year-old man, who is a frequent attender with a background history of COPD, CHF, and end-stage renal disease, on dialysis. The patient is known to be noncompliant with dialysis, but states he did go to dialysis as scheduled this past Tuesday. He comes in today, complaining of increased shortness of breath from baseline. He is normally on oxygen. Denies having any recent cough, fevers, or chills. Denies having any hemoptysis. He denies having any chest pain. He has undergone laboratory studies notable for a normal white blood count. His BNP is significantly elevated at 2230.6. However, it is stable in comparison to previous BNP levels. He has deranged renal function studies and again this is chronic. The patient is due for dialysis this afternoon at 2 p.m. His vital signs are stable and he has undergone a chest x-ray that is notable for an enlarged heart as well as pulmonary vascular congestion with a large left pleural effusion as per Dr. Truong assessment. Therefore, he will be admitted for further management. At present, the patient is without any other complaints. PAST MEDICAL HISTORY: 1. Coronary artery disease. 2. CHF. 3. GA in February 2005. 4. Atrial fibrillation. 5. Diabetes, insulin dependent. 6. Hypothyroidism. 7. Hypertension. 8. Morbid obesity. 9. Noncompliance. 10. Osteoarthritis. 11. End-stage renal disease, on dialysis. 12. Hyperparathyroidism. 13. History of UTIs. 14. Iron deficiency anemia. 15. Anxiety. 16. Depression. PAST SURGICAL HISTORY: 1. Appendectomy. 2. Tonsillectomy. 3. Left leg surgery. 4. Shunt in right arm. 5. Fistula in right arm in October of 2015. PAST SOCIAL HISTORY: The patient lives at [facility]. Denies smoking or alcohol use. No illicit drug use. He does not mobilize. ALLERGIES: 1. ACCUPRIL, CAUSES DRY HACKING COUGH. 2. QUINAPRIL, CAUSES UNKNOWN REACTION. CURRENT MEDICATIONS: 1. Procrit 1000 units subcutaneous weekly. 2. Lantus 5 units subcutaneous once a day. 3. NovoLog sliding scale. 4. Eliquis 2.5 mg by mouth daily. 5. Atorvastatin 20 mg by mouth daily. 6. Docusate sodium 100 mg p.o. daily. 7. Gabapentin 100 mg p.o. 3 times a day. 8. Levothyroxine 88 mcg p.o. daily. 9. Metoprolol succinate 50 mg p.o. daily. 10. Pantoprazole 40 mg p.o. daily. 11. Polyethylene glycol 17 g p.o. daily. 12. Augmentin 875/125 mg one tablet p.o. daily. 13. Sertraline 25 mg p.o. daily. 14. Omnicef 300 mg. 15. Sevelamer 800 mg. 16. Ropinirole 4 mg. PHYSICAL EXAMINATION: GENERAL: The patient appears fatigued, falling asleep during assessment, but able to be easily woken and answering questions appropriately, also following commands. VITAL SIGNS: Temperature 97.8, pulse 85, respirations 20, O2 saturation 94% on 3 L, blood pressure 110/73. HEENT: Normocephalic and atraumatic. Pupils are equal, round, and reactive to light. Sclerae are without icterus. Oropharynx is clear. NECK: Supple without lymphadenopathy. LUNGS: Notable for wheezing throughout all lung tate, reduced at bases. CARDIAC: Regular rate and rhythm without audible murmurs, rubs, or gallops. ABDOMEN: Soft, obese, nontender, nondistended. No guarding or rigidity. EXTREMITIES: Edema bilaterally, nonpitting with discoloration to bilateral lower legs, which is chronic as per the patient. NEURO: No focal deficits. Speech is normal. Alert and oriented. SKIN: Without rash or jaundice. LABORATORY DATA: White blood count 6.2, hemoglobin 9.7, hematocrit 32.4, platelets 267. Sodium 136, potassium 4.3, BUN 39, creatinine 3.71, GFR 17. LFTs unremarkable. CK-MB 1.8, troponin 0.018, repeat was 0.030, and third troponin was 0.022. BNP 2230.6. Chest x-ray as mentioned above. IMPRESSION AND PLAN: Mr. Lyons will be admitted for management of the following conditions: 1. Shortness of breath. Chest x-ray demonstrates mild pulmonary vascular congestion with cardiomegaly and per Dr. Truong, a large left pleural effusion. He has advised the patient be admitted for observation and with regard to concerns for fluid overload, he will continue with dialysis today. Continue to monitor O2 saturations. DuoNeb prescribed. 2. Chest pain. The patient denies any chest pain at present. Troponins mildly raised, but unremarkable. Continue to monitor. 3. End-stage renal disease, on dialysis. Dr. Fonseca aware of the patient is being admitted. He is due for dialysis this afternoon at 2 p.m. 4. Deep venous thrombosis prophylaxis, heparin 5000 units subcutaneous t.i.d. prescribed. 5. Diabetes. Resume home medications. Continue insulin sliding scale. 6. Gastrointestinal prophylaxis. The patient's case was discussed with Dr. Truong, who has seen and evaluated the patient. He agrees with plan of care as described above. Job ID: [id number]
[2018-12-11] MEDS ORDERED: Famotidine/PF 20 mg/2ml Vial SLOW IVP SCH (21:00)
[2018-12-12] MEDS ORDERED: Sodium Chloride 0.9% 250 ML 250 ML IVPB SCH (02:45)
[2018-12-12] MEDS ORDERED: rOPINIRole HCl 2 MG TAB PO SCH (02:45)
[2018-12-12 05:38] LABS: ALT (SGPT) Less than 7 U/L (8-55); AST (SGOT) 25 U/L (5-34); Albumin 2.8 g/dL (3.5-5.0); Alkaline Phosphatase 128 U/L (40-150); Anion Gap 22 mmol/L (10-20); BUN (Urea Nitrogen) 33 mg/dL (8.4-25.7); Bilirubin, Total 0.4 mg/dL (0.2-1.2); Calc. Creatinine Clearance 64 mL/min (70-130); Calcium 8.9 mg/dL (7.8-10.44); Carbon Dioxide 22 mmol/L (22-29); Chloride 96 mmol/L (98-107); Estimated GFR-MDRD 22; Glucose 170 mg/dL (70-105); Potassium 4.7 mmol/L (3.5-5.1); Protein, Total 6.8 g/dL (6.0-8.3); Sodium 133 mmol/L (136-145)
[2018-12-12 05:55] LABS: #Basophils 0.1 thou/uL (0.0-0.2); #Eosinphils 0.1 thou/uL (0.0-0.7); #Lymphocytes 0.9 thou/uL (1.20-3.40); #Monocytes 0.4 thou/uL (0.11-0.59); #Neutrophils 4.3 thou/uL (1.40-6.50); %Basophils 1.3 % (0.0-1.0); %Eosinophils 2.3 % (0.0-10.0); %Lymphocytes 14.9 % (21.0-51.0); %Monocytes 7.6 % (0.0-10.0); %Neutrophils 73.8 % (42.0-75.0); Anisocytosis MODERATE=16-30 cells (100X) (0-5/hpf); MDiff Complete? YES; Mean Corpuscular HGB CONC 29.5 g/dL (32.0-36.0); Mean Corpuscular Hemoglobin 28.4 pg (27.0-31.0); Mean Corpuscular Volume 96.3 fL (78.0-98.0); Mean Platelet Volume 8.7 fL (7.4-10.4); Platelet Count 156 thou/uL (130-400); Platelet Morphology Comment Appears Adequate; RBC Distribution Width 17.2 % (11.5-14.5); Red Blood Cell (RBC) Count 3.52 mill/uL (4.70-6.10); White Blood Cell (WBC) Count 5.8 thou/uL (4.8-10.8)
[2018-12-12] MEDS ORDERED: Polyethylene Glycol 3350 17 GM Packet PO PRN (07:24)
--- NOTE | 2018-12-12 07:57 | PDOC.PN ---
- Subjective Encounter Start Date: 12/12/18 Encounter Start Time: 07:56 Subjective: Patient found resting comfortably bed in bed. Appears to be more alert. -: Denies any complaints. Has had issues with constipation recently but since -: starting Miralax has noted improvement. Soft bowel movement this morning. He reports feeling better with regards to his breathing. Is normally on 3L O2 at magnified. Still feels his abdomen is distended due to fluid. States Dr. Fonseca has been planning potentially adding 2 hours of dialysis on Saturdays. Currently he has dialysis MWF. - Objective Vital Signs & Weight: Vital Signs (12 hours) Temp Pulse Resp BP Pulse Ox 12/12/18 07:45 98.1 F 99 18 107/70 96 12/12/18 04:00 98.4 F 97 16 111/73 92 L 12/12/18 00:00 98.5 F 99 18 99/57 L 93 L 12/11/18 20:00 98.8 F 113 H 16 104/57 L 92 L Weight Weight 374 lb Result Diagrams: 12/12/18 04:53 12/12/18 04:53 Additional Labs: Accuchecks 12/12/18 12/11/18 04:35 20:24 POC Glucose 199 H 149 H Phys Exam - Physical Examination Constitutional: NAD HEENT: PERRLA, sclera anicteric, oral pharynx no lesions Neck: supple, full ROM Respiratory: wheezing present mild expiratory wheezing througout all lungs tate Cardiovascular: RRR Gastrointestinal: soft, non-tender, positive bowel sounds morbidly obese Musculoskeletal: edema present Psychiatric: normal affect, A&O x 3 Skin: no rash Dx/Plan (1) Volume overload Code(s): E87.70 - FLUID OVERLOAD, UNSPECIFIED Status: Acute (2) COPD (chronic obstructive pulmonary disease) Status: Chronic (3) DM2 (diabetes mellitus, type 2) Status: Chronic Qualifiers: Diabetes mellitus complication detail: with chronic kidney disease Chronic kidney disease stage: on chronic dialysis Comment: (4) ESRD (end stage renal disease) on dialysis Code(s): N18.6 - END STAGE RENAL DISEASE; Z99.2 - DEPENDENCE ON RENAL DIALYSIS Status: Chronic - Plan cont current plan of care Wheezing on exam. Duo-neb then reassess. Monitor O2 sats. -: Will need repeat CXR prior to discharge to obtain post therapeutic baseline -: for future comparison. Per patient, Dr. Fonseca plans to add dialysis for -: 2 hrs on Saturdays. Awaiting Nephrology review. -: Resume home meds including anticoagulation. D/C Heparin. Monitor BP, low yesterday but better this am. Monitor Glucose. Patient discussed with Dr. Truong who agrees with plan as above. Review of Systems - Review of Systems Constitutional: negative: fever, chills, sweats, weakness, malaise Respiratory: Shortness of Breath (At baseline, much improved compared to yesterday. ), Wheezing (Slight wheezing). negative: Cough, Dry, Hemoptysis, SOB with Excertion, Pleuritic Pain, Sputum Cardiovascular: edema (trace pitting edema bilaterally extending up to thighs). negative: chest pain, palpitations, orthopnea, paroxysmal nocturnal dyspnea, light headedness Gastrointestinal: Constipation (improving). negative: Nausea, Vomiting, Abdominal Pain, Diarrhea, Melena, Hematochezia Genitourinary: negative: Dysuria, Frequency, Incontinence, Hematuria, Retention Skin: negative: Rash - Medications/Allergies Allergies/Adverse Reactions: Allergies Allergy/AdvReac Type Severity Reaction Status Date / Time quinapril HCl [From Accupril] Allergy Verified 11/05/18 03:21 Medications: Current Medications Acetaminophen (Tylenol) 650 mg PO Q4H PRN PRN Reason: Headache/Fever/Mild Pain (1-3) Last Admin: 12/11/18 20:30 Dose: 650 mg Acetaminophen (Tylenol) 650 mg AL Q4H PRN PRN Reason: Headache/Fever/Mild Pain (1-3) Atorvastatin Calcium (Lipitor) 20 mg PO HS JIMENEZ Dextrose/Water (Dextrose 50%) 25 gm SLOW IVP PRN PRN PRN Reason: Hypoglycemia Docusate Sodium (Colace) 100 mg PO DAILY JIMENEZ Famotidine (Pepcid) 20 mg SLOW IVP QPM [facility] Last Admin: 12/11/18 20:30 Dose: 20 mg Gabapentin (Neurontin) 100 mg PO TID JIMENEZ Glucagon (Glucagon) 1 mg IM PRN PRN PRN Reason: Hypoglycemia Dextrose/Water (D5w) 1,000 mls @ 0 mls/hr IV .Q0M PRN PRN Reason: Hypoglycemia Insulin Human Lispro (Humalog) 0 units SC .MILD SLIDING SCALE PRN PRN Reason: Mild Correctional Scale Last Admin: 12/12/18 06:51 Dose: 2 unit Insulin Human Lispro (Humalog) 0 units SC .BEDTIME SLIDING SC PRN PRN Reason: Bedtime Correctional Scale Levothyroxine Sodium (Synthroid) 88 mcg PO DAILY [facility] Metoprolol Succinate (Toprol Xl) 12.5 mg PO DAILY JIMENEZ Pantoprazole Sodium (Protonix) 40 mg PO DAILY JIMENEZ [Ropinirole Er] 4 Mg 0 each PO HS JIMENEZ Polyethylene Glycol (Miralax) 17 gm PO DAILY PRN PRN Reason: Constipation Rivaroxaban (Xarelto) 15 mg PO QPM-WM [facility] Sertraline HCl (Zoloft) 25 mg PO DAILY [facility] Sevelamer Carbonate (Renvela) 1,600 mg PO TID-WM [facility] Sodium Chloride (Flush - Normal Saline) 10 ml IVF Q12HR PRN PRN Reason: Saline Flush Sodium Chloride (Flush - Normal Saline) 10 ml IVF PRN PRN PRN Reason: Saline Flush
--- NOTE | 2018-12-12 07:58 | CON ---
DATE OF CONSULTATION: 12/11/2018 CONSULTING PHYSICIAN: Earlene. REASON FOR CONSULTATION: End-stage renal disease evaluation. REASON FOR ADMISSION: Chest pain and shortness of breath. HISTORY OF PRESENT ILLNESS: This is a 58-year-old male with history of coronary artery disease, CHF, type 2 diabetes, hypertension, end stage renal disease, came to the hospital with chest pain, is being admitted for further evaluation, Nephrology consult obtained for dialysis today. He denies any shortness of breath. No fever or chills. No nausea or vomiting. PAST MEDICAL HISTORY: Positive for coronary artery disease, CHF, atrial fibrillation, type 2 diabetes, hypertension, morbid obesity, end stage renal disease, depression, and anxiety. PAST SURGICAL HISTORY: Appendectomy, tonsillectomy, left leg surgery, and dialysis access placement. HOME MEDICATIONS: 1. Procrit. 2. Lantus. 3. NovoLog. 4. Eliquis. 5. Atorvastatin. 6. Docusate. 7. Gabapentin. 8. Levothyroxine. 9. Metoprolol. 10. Pantoprazole. 11. Polyethylene glycol. 12. Augmentin. 13. Sertraline. 14. Omnicef. 15. Sevelamer. 16. Ropinirole. ALLERGIES: 1. ACCUPRIL. 2. QUINAPRIL. SOCIAL HISTORY: No smoking, alcohol, or illicit drug use. FAMILY HISTORY: No history of any kidney disease. REVIEW OF SYSTEMS: CONSTITUTIONAL: Negative for weight loss or gain, ability to conduct usual activities. SKIN: Negative for rash, itching. EYES: Negative for double vision, pain. ENT/MOUTH: Negative for nose bleeding, neck stiffness, pain, tenderness. CARDIOVASCULAR: Negative for palpitations, dyspnea on exertion, orthopnea. RESPIRATORY: Negative for shortness of breath, wheezing, cough, hemoptysis, fever or night sweats. GASTROINTESTINAL: Negative for poor appetite, abdominal pain, heartburn, nausea, vomiting, constipation, or diarrhea. GENITOURINARY: Negative for urgency, frequency, dysuria, nocturia. MUSCULOSKELETAL: Negative for pain, swelling. NEUROLOGIC/PSYCHIATRIC: Negative for anxiety, depression. ALLERGY/IMMUNOLOGIC: Negative for skin rash, bleeding tendency. PHYSICAL EXAMINATION: GENERAL: This is a morbidly obese male, in no apparent distress. VITAL SIGNS: Temperature 98, pulse 113, respiratory rate 16, and blood pressure 104/57. HEENT: Atraumatic and normocephalic. Oral mucosa is moist. NECK: Supple. CVS: S1 and S2 heard. Rate and rhythm regular. RESPIRATORY: Clear. GASTROINTESTINAL: Abdomen is soft. MUSCULOSKELETAL: No tenderness. DERMATOLOGIC: No skin rash. NEUROLOGIC: Alert and awake. PSYCHIATRIC: Normal mood and affect. LABORATORY DATA: Hemoglobin is 10.3. Potassium is 4.5, BUN is 42, creatinine is 3.7. ASSESSMENT: 1. End stage renal disease, currently in need of hemodialysis. 2. Edema, controlled. 3. Hypertension 4. Hypoalbuminemia. 5. Morbid Obesity PLAN: Plan is to continue dialysis Tuesday, Tuesday, and Tuesday as tolerated. Job ID: [id number] [facility]
[2018-12-12] MEDS ORDERED: Sevelamer Carbonate 800 MG TAB PO SCH (08:00)
[2018-12-12] MEDS ORDERED: Docusate 100 MG CAP PO SCH (09:00)
[2018-12-12] MEDS ORDERED: Levothyroxine Sodium 88 MCG TAB PO SCH (09:00)
[2018-12-12] MEDS: Gabapentin 100 MG CAP PO SCH ×2 (09:19→16:28)
[2018-12-12] MEDS: Sevelamer Carbonate 800 MG TAB PO SCH ×3 (09:20→16:28)
--- NOTE | 2018-12-12 15:40 | RAD ---
CHEST ONE VIEW: History: Chest pain. Follow up. Comparison: 11-30-18 FINDINGS: Cardiac silhouette is magnified and enlarged. Pulmonary vasculature remains engorged but less so than on the prior study. Patchy areas of predominately linear parenchymal infiltrate again demonstrated t hroughout each lung. Patient is slightly rotated leftward. There is calcification in the aortic arch. No evidence of pneumothorax. IMPRESSION: 1. Some improvement in aeration of the lungs with decrease in radiographic degree of pulmonary edema. 2. Cardiomegaly. 3. Atherosclerosis. POS: [facility]
[2018-12-12] MEDS ORDERED: Rivaroxaban 15 MG TAB PO SCH (17:00)
[2018-12-12 17:01] VITALS: BP 99/58; TEMP 98.2
--- NOTE | 2018-12-12 18:11 | PRG ---
DATE OF SERVICE: 12/12/2018 SUBJECTIVE: Patient was seen and examined at bedside and overnight events noted. Patient denies any shortness of breath or chest pain or palpitation. No history of nausea or vomiting or diarrhea or fever or chills or cramps. OBJECTIVE: GENERAL: This is a morbidly obese male, in no apparent distress. VITAL SIGNS: Temperature 98.2. Heart rate 90. Respiratory rate 18. Blood pressure 114/68. HEENT: Atraumatic, normocephalic. Oral mucosa is moist NECK: Supple. CARDIOVASCULAR: S1, S2 heard. Rate and rhythm regular. RESPIRATORY: Clear to auscultation. GASTROINTESTINAL: Abdomen is soft. MUSCULOSKELETAL: No tenderness. No edema. DERMATOLOGIC: No skin rash. NEUROLOGIC: Alert and awake and oriented X3. No focal neurologic deficits. Moving all the extremities. PSYCHIATRIC: Mood and affect normal. LABORATORY DATA: Potassium 4.7, BUN is 33, creatinine is 2.9 ASSESSMENT AND PLAN: 1. End-stage renal disease. Continue on hemodialysis as tolerated. 2. Edema. 3. Hypotension. 4. Hypoalbuminemia. 5. Anemia. 6. Morbid obesity. Continue dialysis on Tuesday, Tuesday, and Tuesday. Advised to limit fluid intake. Job ID: [id number]
[2018-12-12] MEDS ORDERED: ROPINIROLE HCL 4 MG PO SCH (21:00)
[2018-12-12] MEDS ORDERED: Atorvastatin Calcium 20 MG TAB PO SCH (21:00)
[2018-12-12] MEDS ORDERED: ROPINIROLE 4 MG PO SCH (21:00)
== END 2018-12-12 17:26 ==
LOC: ERS 23:06 → ERHOLD 12-11 01:19 → 2SE 12-11 17:42
PROVIDERS: ADMIT Hospitalist; ATTEND Hospitalist
DX: I13.2 Hypertensive heart and chronic kidney disease with heart failure and with stage 5 chronic kidney disease, or end stage renal disease (principal); E11.22 Type 2 diabetes mellitus with diabetic chronic kidney disease; N18.6 End stage renal disease; I50.9 Heart failure, unspecified; J90 Pleural effusion, not elsewhere classified; I70.0 Atherosclerosis of aorta; I25.2 Old myocardial infarction; F32.9 Major depressive disorder, single episode, unspecified; J44.9 Chronic obstructive pulmonary disease, unspecified; F41.9 Anxiety disorder, unspecified; I48.91 Unspecified atrial fibrillation; E03.9 Hypothyroidism, unspecified; M19.90 Unspecified osteoarthritis, unspecified site; E21.3 Hyperparathyroidism, unspecified; D50.9 Iron deficiency anemia, unspecified; E88.09 Other disorders of plasma-protein metabolism, not elsewhere classified; E66.01 Morbid (severe) obesity due to excess calories; Z68.43 Body mass index [BMI] 50.0-59.9, adult; Z88.8 Allergy status to other drugs, medicaments and biological substances; Z91.15 Patient's noncompliance with renal dialysis; Z99.2 Dependence on renal dialysis; Z79.01 Long term (current) use of anticoagulants; Z79.4 Long term (current) use of insulin; Z79.899 Other long term (current) drug therapy
CPT/HCPCS: 71045 ×2; 80053 ×3; 82553; 82962 ×2; 83880 ×3; 84484 ×3; 85025 ×3; 93005; 94760; 96374; 99285; G0378 ×2; 36415; 36416; 90935; G0257; J1644; S0028

== ENCOUNTER 2019-01-13 13:07 | Inpatient (IN) | payer MEDICARE, MEDICAID ==
--- NOTE | 2019-01-13 13:51 | RAD ---
PORTABLE CHEST: DATE: 01/13/2019. PROVIDED CLINICAL HISTORY: Cough. FINDINGS: Comparison 12/12/2018. Evaluation is limited by patient body habitus. The cardiac silhouette is prom inently enlarged. Vascular calcification involves the aortic arch. Left mid and lower lung zone ple ural and parenchymal opacity could not be excluded. Stable linear opacities involving the right para hilar region. IMPRESSION: Limited study as above. Cardiomegaly. The left lung is not well evaluated. POS: [facility]
[2019-01-13 13:55] LABS: Actual Bicarbonate (HCO3a) 34.5 mEq/L (22-28); Analyzer IN Cardio ER; Base Excess (BEa) 5.9 mEq/L (-2.0 to +3.0); Calcium, Ionized 1.14 mmol/L (1.12-1.30); Carboxyhemoglobin (COHb) 0.9 gm% (0.0-3.0); Hemoglobin (Hb) 10.7 g/dL (14.0-18.0); O2 Tension (PaO2) 77.2 mmHg (> 80.0); Potassium - ABG Lab 3.87 mmol/L (3.70-5.30); pH, Arterial 7.28 (7.35-7.45)
[2019-01-13] MEDS ORDERED: Norepinephrine 8 MG/0.9% NS 250 ML ONE (13:56)
[2019-01-13 14:12] LABS: CO2 Tension 74.5 mmHg (35.0-45.0); Puncture Site LB
[2019-01-13 14:13] LABS: ALV-art Gradient 150.525 (0-20)
[2019-01-13] MEDS ORDERED: Rocuronium Bromide 10 MG/ML (10ML VIAL) ONE (14:40)
[2019-01-13] MEDS ORDERED: Rocuronium Bromide 50 MG/5 ML VIAL ONE ×2 (14:41→14:42)
[2019-01-13] MEDS ORDERED: fentaNYL Citrate/PF 2,000 MCG in Sodium Chloride 0.9% 60 ML IV SCH (14:44)
[2019-01-13 14:53] LABS: #Eosinphils 0.1 thou/uL (0.0-0.7); #Lymphocytes 1.4 thou/uL (1.20-3.40); #Monocytes 0.7 thou/uL (0.11-0.59); #Neutrophils 6.6 thou/uL (1.40-6.50); %Basophils 0.5 % (0.0-1.0); %Eosinophils 0.6 % (0.0-10.0); %Lymphocytes 15.5 % (21.0-51.0); %Monocytes 8.5 % (0.0-10.0); Hemoglobin 9.6 g/dL (14.0-18.0); Mean Corpuscular HGB CONC 30.4 g/dL (32.0-36.0); Mean Corpuscular Hemoglobin 27.7 pg (27.0-31.0); Mean Corpuscular Volume 91.2 fL (78.0-98.0); Platelet Count 256 thou/uL (130-400); RBC Distribution Width 18.6 % (11.5-14.5); Red Blood Cell (RBC) Count 3.47 mill/uL (4.70-6.10); White Blood Cell (WBC) Count 8.7 thou/uL (4.8-10.8)
[2019-01-13 15:00] LABS: PTT 37.1 SEC (22.9-36.1); Prothrombin Time 47.9 SEC (12.0-14.7)
[2019-01-13 15:03] LABS: INR-International Normal Ratio 5.2
[2019-01-13 15:05] LABS: ALT (SGPT) 126 U/L (8-55); AST (SGOT) 266 U/L (5-34); Albumin 3.4 g/dL (3.5-5.0); Alkaline Phosphatase 114 U/L (40-150); Anion Gap 20 mmol/L (10-20); BUN (Urea Nitrogen) 36 mg/dL (8.4-25.7); Calc. Creatinine Clearance 0 mL/min (70-130); Calcium 9.5 mg/dL (7.8-10.44); Carbon Dioxide 31 mmol/L (22-29); Chloride 92 mmol/L (98-107); Estimated GFR-MDRD 22; Globulin 3.6 g/dL (2.4-3.5); Glucose 171 mg/dL (70-105); Sodium 139 mmol/L (136-145)
[2019-01-13 15:43] LABS: CKMB 28.6 ng/mL (0-6.6)
[2019-01-13 15:49] LABS: Actual Bicarbonate (HCO3a) 31.5 mEq/L (22-28); Analyzer IN Cardio ER; Base Excess (BEa) 3.3 mEq/L (-2.0 to +3.0); Calcium, Ionized 1.15 mmol/L (1.12-1.30); Carboxyhemoglobin (COHb) 0.9 gm% (0.0-3.0); Hemoglobin (Hb) 11.4 g/dL (14.0-18.0); O2 Tension (PaO2) 306.4 mmHg (> 80.0); Potassium - ABG Lab 4.37 mmol/L (3.70-5.30); pH, Arterial 7.29 (7.35-7.45)
[2019-01-13 15:50] LABS: CO2 Tension 67.8 mmHg (35.0-45.0)
[2019-01-13] MEDS ORDERED: Dextrose 50% Abboject 50 ML SYRINGE SLOW IVP PRN (16:54)
[2019-01-13] MEDS ORDERED: Dextrose 5% in Water 1,000 ML IV PRN (16:54)
[2019-01-13] MEDS ORDERED: Ondansetron PF 4 MG/2 ML Vial IVP PRN (17:21)
[2019-01-13] MEDS ORDERED: Ondansetron ODT 4 MG TAB SL PRN (17:21)
[2019-01-13 17:33] VITALS: BMI 52.8
[2019-01-13 17:59] LABS: Troponin I 20.504 ng/mL (< 0.028)
[2019-01-13] MEDS: Norepinephrine 8 MG in Dextrose 5% in Water 242 ML IVPB PRN (18:25)
--- NOTE | 2019-01-13 18:29 | CON ---
DATE OF CONSULTATION: 01/13/2019 CONSULTING PHYSICIAN: Tomas Priest MD REASON FOR CONSULTATION: Acute respiratory failure. This consult encompassed 70 minutes time, of that time, half of it was spent with the patient and/or the patient's unit in the hospital. HISTORY OF PRESENT ILLNESS: A 58-year-old male, who presented to the hospital from his assisted with increasing shortness of breath and hypoxemia. He denies any chest pain. He denies missing any recent dialysis treatments. He is well known from previous hospitalizations. Apparently, he was felt to be bad enough in the ER to necessitate intubation, but the patient refused intubation. PAST MEDICAL HISTORY: 1. Obesity. 2. Probable JOSÉ LUIS, but he has never had a formal sleep study as an outpatient. 3. Coronary artery disease. 4. Diastolic congestive heart failure. 5. Myocardial infarction. 6. Atrial fibrillation. 7. Diabetes mellitus type 2. 8. Hypothyroidism. 9. Hypertension. 10. Osteoarthritis. 11. End-stage renal disease, requiring hemodialysis. PAST SURGICAL HISTORY: 1. Right arm AV fistula placement. 2. Appendectomy. 3. Tonsillectomy. 4. Left leg surgery. SOCIAL HISTORY: Nonsmoker. Does not consume alcohol. He lives in a assisted. ALLERGIES: ACCUPRIL. FAMILY MEDICAL HISTORY: Remarkable for diabetes mellitus. REVIEW OF SYSTEMS: Almost impossible to obtain at this time because the patient is on mechanical ventilation. HOME MEDICATIONS: These are listed under the [facility] section in the chart and these were reviewed. PHYSICAL EXAMINATION: VITAL SIGNS: Blood pressure is running 123/60 via an art line, pulse in the 80s, respiratory rate 25 on BiPAP, and temperature 99.0. GENERAL: He is a disheveled male, who is currently on BiPAP. He has a central line in the right groin. He has arterial line in the left radial. He is currently on a Levophed drip. HEENT: Pupils reactive. Sclerae icteric. Oropharynx, CPAP mask in place. NECK: No adenopathy or JVD. LUNGS: Coarse breath sounds bilaterally. CARDIOVASCULAR: S1 and S2. Irregular without murmur. ABDOMEN: Morbidly obese and soft. EXTREMITIES: Generalized edema throughout. LABORATORY DATA: White blood cell count 8.7, hemoglobin 9.6, hematocrit 32, and platelet count 256 with no left shift. INR is 5.2 and PTT 37.1. A pH of 7.29, pCO2 of 67, and pO2 of 306, that is on BiPAP mask. Sodium 139, potassium 4, chloride 92, CO2 of 31, BUN 36, creatinine 2.8, glucose 171 with AST of 266 and ALT 126. Troponin is 17 and BNP 3432. His chest x-ray demonstrates cardiomegaly. The x-ray is very turned to the left, so it is difficult to tell whether he has a left effusion or not. His diaphragms are also elevated indicating this is probably an expiratory film. ASSESSMENT: 1. Acute respiratory failure on top of chronic hypoxic and hypercapnic respiratory failure. 2. Myocardial infarction. 3. Diastolic congestive heart failure. 4. Hypotension, which may be secondary to heart failure or volume depletion. 5. Lactic acidosis. 6. Diabetes mellitus. PLAN: The patient will continue on BiPAP. He will be on Levophed for blood pressure support. Cardiology and Nephrology have been consulted. The patient has apparently refused intubation for fear that it will result in tracheostomy placement. I am not sure if that means that he is a do not intubate patient or not. Thank you for the referral. We will follow. Job ID: [id number]
[2019-01-13 18:36] LABS: Lactic Acid 1.8 mmol/L (0.5-2.2)
--- NOTE | 2019-01-13 18:37 | HP ---
CHIEF COMPLAINT: Shortness of breath. HISTORY OF PRESENT ILLNESS: The patient is a 58-year-old male with a history of end-stage renal disease and congestive heart failure, who was most recently at this facility in November with chest pain. The patient had some volume overload, so was seen in consultation by Nephrology, had dialysis, and was subsequently cleared for discharge to the senior care. The patient was sent to [facility]. He was brought back today after it was reported that he had 2 days of shortness of breath and hypoxia with sats in the 80s. The patient was seen initially by EMS, who put the patient on BiPAP. They noted his blood pressures were 96 systolic, second was 110/47 with a heart rate of 105, in atrial fibrillation. In the emergency department, the patient had a significant drop in his blood pressure to a low of 45/25 and he required pressor support. He is currently on Levophed at 12 mcg. He also had refused intubation in spite of significant acidosis on his blood gas. The patient is unable to give any history as he cannot talk. He can shake his head at times and is trying to write, but for the most part is not legible. REVIEW OF SYSTEMS: Unobtainable other than that information gathered from the history above as the patient is unable to communicate effectively. PAST MEDICAL HISTORY: 1. Coronary artery disease. 2. CHF, had an echo done in October that did not look too bad with a preserved ejection fraction. 3. DC in 2004. 4. Atrial fibrillation. 5. Diabetes mellitus, insulin dependent. 6. Hypothyroidism. 7. Hypertension. 8. Morbid obesity. 9. Noncompliance with both medications and dialysis per records. 10. Osteoarthritis. 11. End-stage renal disease, on dialysis. 12. Hyperparathyroidism secondary to renal disease. 13. History of recurrent urinary tract infections. 14. Iron-deficiency anemia. 15. Anxiety. 16. Depression. PAST SURGICAL HISTORY: 1. Appendectomy. 2. Tonsillectomy. 3. Left leg surgery. 4. Shunt in right arm for dialysis. SOCIAL HISTORY: The patient lives at [facility]. Denies smoking, alcohol, or drug use per previous records. He is not mobile. ALLERGIES: ACCUPRIL AND QUINAPRIL. CURRENT MEDICATIONS: Per the emergency department record, include; 1. Atorvastatin 20 mg daily. 2. Docusate 100 mg daily. 3. Gabapentin 100 mg t.i.d. 4. Levothyroxine 88 mcg daily. 5. Metoprolol 50 mg, dosing regimen on that is unclear as there was apparently some misinformation on his list from the senior care. 6. Pantoprazole 40 mg daily. 7. MiraLAX 17 g daily. 8. Sertraline 25 mg daily. 9. Sevelamer 800 mg, dosing not known. 10. Ropinirole 4 mg nightly. 11. Acetaminophen 650 p.r.n. 12. Guaifenesin b.i.d. p.r.n. 13. Humalog sliding scale. 14. Tramadol p.r.n. 15. Zofran p.r.n. PHYSICAL EXAMINATION: VITAL SIGNS: Most recent set of vital signs; BP was 124/57, pulse 114, respirations 22, and O2 saturations 99% on BiPAP. GENERAL APPEARANCE: The patient appears stated age. He is morbidly obese. He is lying supine in bed, wearing BiPAP. He has a pen in hand and attempts to write on paper on a clipboard, but appears to almost fall asleep in between attempts. He will briefly build focus and answer questions by nodding his head, but will not verbalize due to the shortness of breath and BiPAP mask. HEENT: No obvious oropharyngeal lesions noted. HEART: Irregular without significant murmur, but difficult to assess. LUNGS: Some scattered rales with diminished air movement. ABDOMEN: Obese, soft, nontender, and nondistended. No masses. No organomegaly. EXTREMITIES: There is no significant pitting edema noted. He has some chronic stasis. He has some desquamation of the skin over the feet and the toes are slightly dusky in appearance. NEUROLOGIC: The patient appears to be moving his extremities relatively normally spontaneously without evidence of gross focal deficits. DIAGNOSTIC STUDIES: EKG shows AFib with RVR at 114, was kind of bundle-branch block. Chest x-ray shows some cardiomegaly and chronic changes, but otherwise cannot be interpreted to the patient's body habitus and rotation on the film. LABORATORY DATA: White count 8.7, hemoglobin 9.6, and platelets 256. INR is 5.2 and PTT is 37.1. Initial ABG, pH 7.28, pCO2 is 45, pO2 of 77. Subsequent pH is 7.29, pCO2 of 68, and pO2 is 306. Sodium 139, potassium 4.0, chloride 92, CO2 of 31, BUN 36, creatinine is 2.88, and glucose 171. Lactic acid 3.1, AST is 266, ALT is 126. Troponin is 17. BNP is 3432. IMPRESSION AND PLAN: 1. Acute respiratory failure with combined hypoxia and hypercapnia. The patient appears to possibly be having some cardiogenic shock and also possibly some generalized volume overload related to this. He is on BiPAP, refusing intubation. The patient will go to ICU and Pulmonary has been consulted. I discussed the case with Dr. Juárez. 2. Volume overload, likely a combination of congestive heart failure and end-stage renal disease. I discussed the case with both Cardiology and Nephrology. The patient's pressure is too low to consider any aggressive interventions, such as diuresis or dialysis. 3. Hypotension, suspicious for possible cardiogenic shock given the elevated troponins. He is still in atrial fibrillation and a rapid rate. He has responded well to pressor support. 4. Tap-QL-soydyrget myocardial infarction. The patient has significantly elevated troponin. He has apparent history of coronary artery disease. He is too unstable presently to undergo aggressive intervention by Cardiology, especially in light of the fact that he is refusing intubation, need to be more stabilized. I discussed with Dr. Walls. 5. Congestive heart failure exacerbation. The patient had a relatively preserved ejection fraction in October. However, with elevated troponin, unclear if this is a substantial demand ischemia from rapid ventricular response, severe hypotension, and hypoxia. It appears that he has a true type 1 [id number]-[id number] myocardial infarction and could be further investigated once he is more stabilized. 6. Atrial fibrillation with rapid ventricular response. Chronic atrial fibrillation. The tachycardia is appropriate to the situation. He appears to have been on beta blockers and Xarelto in the past given his elevated INR, suspect he is still on anticoagulation. 7. Diabetes mellitus. We will simply cover with Accu-Cheks and sliding scale insulin for now. 8. Hypothyroidism. We will resume his home medications once he is more stable. 9. Hyperlipidemia. Resume home medications when stable. 10. Elevated INR. Continue to monitor. Likely secondary to medications. Job ID: [id number]
[2019-01-13] MEDS ORDERED: Prevnar 13-Val Conj/PF 0.5 ML SYRINGE IM ONE (19:15)
--- NOTE | 2019-01-13 20:42 | CON ---
DATE OF CONSULTATION: 01/13/2019 CONSULTING PHYSICIAN: Dr. Priest. REASON FOR CONSULTATION: End-stage renal disease evaluation and care. REASON FOR ADMISSION: Shortness of breath. HISTORY OF PRESENT ILLNESS: A 58-year-old white male with history of coronary artery disease, CHF, end-stage renal disease, hypertension, type 2 diabetes, came to the hospital with shortness of breath and was found to be in critical condition with hypercapnic respiratory failure and elevated troponin and is being admitted. He is seen in ICU. He is on Levophed drip due to hypotension and he is on BiPAP. The patient refused to have intubation and resuscitation and is currently on chemical code only. The patient is not able to give a good history. He is confused. PAST MEDICAL HISTORY: Positive for coronary artery disease, CHF, atrial fibrillation, type 2 diabetes, hypothyroidism, hypertension, morbid obesity, osteoarthritis, anxiety, and depression. PAST SURGICAL HISTORY: Appendectomy, tonsillectomy, left leg surgery, and shunt placement. HOME MEDICATIONS: 1. Atorvastatin. 2. Docusate. 3. Gabapentin. 4. Levothyroxine. 5. Metoprolol. 6. Pantoprazole. 7. MiraLAX. 8. Sertraline. 9. Sevelamer. 10. Ropinirole. 11. Tylenol. 12. Guaifenesin. 13. Humalog. 14. Tramadol. 15. Zofran. ALLERGIES: ACCUPRIL AND QUINAPRIL. SOCIAL HISTORY: No smoking, alcohol, or illicit drug abuse. FAMILY HISTORY: No history of any kidney disease. REVIEW OF SYSTEMS: CONSTITUTIONAL: Negative for weight loss or gain, ability to conduct usual activities. SKIN: Negative for rash, itching. EYES: Negative for double vision, pain. ENT/MOUTH: Negative for nose bleeding, neck stiffness, pain, tenderness. CARDIOVASCULAR: Negative for palpitations, dyspnea on exertion, orthopnea. RESPIRATORY: Negative for shortness of breath, wheezing, cough, hemoptysis, fever or night sweats. GASTROINTESTINAL: Negative for poor appetite, abdominal pain, heartburn, nausea, vomiting, constipation, or diarrhea. GENITOURINARY: Negative for urgency, frequency, dysuria, nocturia. MUSCULOSKELETAL: Negative for pain, swelling. NEUROLOGIC/PSYCHIATRIC: Negative for anxiety, depression. ALLERGY/IMMUNOLOGIC: Negative for skin rash, bleeding tendency. PHYSICAL EXAMINATION: GENERAL: This is a morbidly obese male, seen in ICU, on BiPAP. VITAL SIGNS: Temperature afebrile, pulse 114, respiratory rate 22, blood pressure 124/57. HEENT: On BiPAP. CV: S1 and S2 heard. RESPIRATORY: Clear. GI: Abdomen is soft. MUSCULOSKELETAL: 1+ edema. DERMATOLOGIC: No skin rash. NEUROLOGIC: Confused. LABORATORY DATA: Hemoglobin is 9.6. Potassium is 4.0, BUN is 36, creatinine is 2.8. ASSESSMENT AND PLAN: 1. End-stage renal disease, on hemodialysis on Tuesday, Tuesday, and Tuesday, seems like last dialysis on Tuesday. The patient appears fluid overloaded, but remains hypotensive, on Levophed, not able to do ultrafiltration. Labs look stable, so no indication for dialysis at this time. Prognosis is guarded. 2. Acute hypoxic and hypercapnic respiratory failure, on BiPAP. The patient refused to have intubation. 3. Anemia of chronic disease including chronic kidney disease. We will add Epogen if stable. 4. Elevated INR. 5. [id number] myocardial infarction. Follow with Cardiology. 6. Elevated BNP with fluid overload. 7. Hypoalbuminemia. 8. Acute on chronic heart failure. 9. Respiratory acidosis. 10. Morbid obesity. 11. Obesity hypoventilation syndrome. 12. Edema. Prognosis is guarded with multiorgan failure and hypotension complicating the situation, most likely from cardiogenic shock, not able to have dialysis at this point. We will continue close monitoring. The patient is chemical code only. We will continue to follow. Thank you for the consult. Job ID: [id number]
[2019-01-14] MEDS: Norepinephrine 8 MG in Dextrose 5% in Water 242 ML IVPB PRN (00:01)
[2019-01-14 00:25] LABS: Troponin I 23.452 ng/mL (< 0.028)
[2019-01-14 05:38] LABS: #Basophils 0.1 thou/uL (0.0-0.2); #Lymphocytes 1.7 thou/uL (1.20-3.40); #Monocytes 0.6 thou/uL (0.11-0.59); #Neutrophils 7.6 thou/uL (1.40-6.50); %Basophils 0.6 % (0.0-1.0); %Eosinophils 0.4 % (0.0-10.0); %Lymphocytes 16.9 % (21.0-51.0); %Monocytes 5.7 % (0.0-10.0); %Neutrophils 76.4 % (42.0-75.0); Hemoglobin 10.4 g/dL (14.0-18.0); Mean Corpuscular HGB CONC 30.6 g/dL (32.0-36.0); Mean Corpuscular Hemoglobin 27.6 pg (27.0-31.0); Mean Corpuscular Volume 90.4 fL (78.0-98.0); Mean Platelet Volume 8.9 fL (7.4-10.4); Platelet Count 318 thou/uL (130-400); RBC Distribution Width 18.7 % (11.5-14.5); Red Blood Cell (RBC) Count 3.77 mill/uL (4.70-6.10); White Blood Cell (WBC) Count 9.9 thou/uL (4.8-10.8)
[2019-01-14 06:00] LABS: ALT (SGPT) 394 U/L (8-55); AST (SGOT) 642 U/L (5-34); Albumin 3.3 g/dL (3.5-5.0); Alkaline Phosphatase 113 U/L (40-150); Anion Gap 17 mmol/L (10-20); BUN (Urea Nitrogen) 44 mg/dL (8.4-25.7); Bilirubin, Total 0.9 mg/dL (0.2-1.2); Calc. Creatinine Clearance 52 mL/min (70-130); Calcium 9.4 mg/dL (7.8-10.44); Carbon Dioxide 32 mmol/L (22-29); Chloride 91 mmol/L (98-107); Estimated GFR-MDRD 19; Globulin 3.6 g/dL (2.4-3.5); Glucose 184 mg/dL (70-105); Potassium 3.7 mmol/L (3.5-5.1); Protein, Total 6.9 g/dL (6.0-8.3); Sodium 136 mmol/L (136-145)
[2019-01-14] MEDS: Norepinephrine 16 MG in Sodium Chloride 0.9% 250 ML 250 ML IVPB PRN (06:01)
[2019-01-14] MEDS ORDERED: Aspirin 300 MG Suppository PR SCH (07:42)
--- NOTE | 2019-01-14 08:18 | PRG ---
DATE OF SERVICE: 01/14/2019 SUBJECTIVE: The patient is seen and examined at the bedside. He is wearing a BiPAP mask, which was started in the emergency room. He is still on Levophed. There were not any unexpected events overnight. OBJECTIVE: VITAL SIGNS: Blood pressure is 146/74, pulse is 103, respiratory rate is 27, O2 saturation is 97%. The monitoring shows atrial fibrillation with controlled ventricular rate around 90 to 100s. LUNGS: Breath sounds diminished at both bases. HEART: S1, S2, somewhat irregular. No S3. No S4. ABDOMEN: Obese, soft, nontender, nondistended. EXTREMITIES: 1+ peripheral edema. Skin discoloration of both feet and above the ankles. NEUROLOGICAL: Examination postponed since he is on a mask and he is still sleeping. LABORATORY DATA: Labs showed white count of 9.9, hemoglobin 10.4, hematocrit 34.1, platelet count is 318. Sodium of 136, potassium 3.3, chloride 91, CO2 of 32, BUN 44, creatinine 3.28, AST 642, ALT 394. Troponins 17.227, next 20.504, next 23.452. Albumin 2.3, globulin 3.6. IMPRESSION: 1. Acute respiratory failure with combined hypoxic hypercapnia on BiPAP. 2. Hypotension, most likely cardiogenic shock secondary to acute myocardial infarction. 3. Atrial fibrillation with currently controlled ventricular rate. 4. Non-ST elevation myocardial infarction. 5. Congestive heart failure exacerbation. 6. Diabetes mellitus type 2. 7. Hypothyroidism. 8. Hyperlipidemia. 9. Elevated INR. PLAN: Plan is to continue his BiPAP until he is seen by Pulmonary/Critical Care, Dr. Juárez. We will continue his Levophed. He is going to be seen by Dr. Walls for Cardiology evaluation. He was on Xarelto and his INR is elevated. We just used one dose of aspirin 325 mg for his acute OR. We will reconcile his meds. We will do Accu-Chek's a.c. and at bedtime and cover with sliding scale, and he will remain in intensive care unit for close observation. Nephrology is following. The patient was seen by Dr. Mejia last night. He recommends close monitoring and continue chemical code only. Job ID: [id number]
[2019-01-14] MEDS: Aspirin 300 MG Suppository PR SCH (08:54)
--- NOTE | 2019-01-14 10:38 | PRG ---
DATE OF SERVICE: 01/14/2019 SUBJECTIVE: Mr. Lyons is somewhat better today. He indicates he wants to try to come off the BiPAP. OBJECTIVE: VITAL SIGNS: Temperature 98.3, pulse 107, blood pressure 119/61, and O2 saturation 98%. A 24-hour intake 383 and output zero. Weight 337 pounds. HEENT: Unremarkable. NECK: No adenopathy or JVD. CHEST: Fairly clear anteriorly. CARDIAC: S1 and S2. Regular. ABDOMEN: Soft, obese, nontender, and nondistended. EXTREMITIES: No edema. LABORATORY DATA: White blood cell count 9.9, hematocrit 34.1, and platelet count 318. Sodium 136, potassium 3.7, chloride 91, CO2 of 32, BUN 44, creatinine 3.2, and glucose 184. Troponin was 23.4. ASSESSMENT: 1. Myocardial infarction - seems to be a non-ST elevation myocardial infarction. 2. Hypotension, most likely related to cardiogenic shock. 3. Acute respiratory failure requiring mechanical ventilation via bilevel positive airway pressure. 4. Diabetes mellitus type 2. 5. End-stage renal disease. 6. Atrial fibrillation. PLAN: I have lowered his BiPAP pressures. We may be able to take him off the BiPAP later today. The hope is to begin weaning the Levophed off, at some point, he is going to need dialysis. I will defer to the Nephrology Service on that. The patient's prognosis is extremely guarded. Job ID: [id number]
[2019-01-14] MEDS ORDERED: Heparin 10,000 UNITS/ 10 ML VIAL SLOW IVP SCH (15:45)
[2019-01-14 16:28] LABS: Hemoglobin 9.7 g/dL (14.0-18.0); Platelet Count 226 thou/uL (130-400)
[2019-01-14 16:51] LABS: Critical Call Chem Troponin I DECREASED; Troponin I 17.669 ng/mL (< 0.028)
[2019-01-14] MEDS: HumaLOG 300 UNITS/3 ML VIAL SC PRN (16:57)
[2019-01-14] MEDS: Heparin 25,000 units/D5W 500 ML IVPB SCH (17:35)
[2019-01-14] MEDS: Heparin 10,000 UNITS/ 10 ML VIAL SLOW IVP SCH ×2 (17:39→22:15)
--- NOTE | 2019-01-14 19:00 | CON ---
DATE OF CONSULTATION: 01/13/2019 INDICATION FOR CONSULTATION: A 58-year-old gentleman with end-stage coronary artery disease, who is deemed inoperable about 13 years ago by cardiac catheterization. He was found to have severe three-vessel coronary artery disease, was not deemed a candidate for a bypass surgery. He had a stenosis in the left anterior descending artery up to 90% stenosis and left circumflex with 80% stenosis, the obtuse marginal branch with 70% stenosis, and the right coronary has zero lesions of 80% to 90%. Unfortunately, he has maintained his ejection fraction. His ejection fraction back in November of this year was about 55% with right ventricular and left atrial dilatation with only mild mitral and tricuspid valve regurgitation. He presented again this time after having increasing shortness of breath. Cardiac enzymes were found to be abnormal. His peak troponin I thus far is 23. He denied any chest pain. He may need to said he was short of breath. He refused to undergo intubation in the emergency room and is on BiPAP mask and has a difficult time to communicate due to the mask being in place. He does try to take right notes at times and mainly was complaining of bilateral shoulder pain. He has been in the prison and apparently at some time he also has end-stage renal disease, has been refusing dialysis at times, but now appears that he has been getting some dialysis at least. He also had in times past has refused to take his medications. At this time, the patient is obviously very ill. He is on Levophed due to hypotension. He is on a BiPAP mask due to his hypoxemia. At this time, the O2 saturations are 99% with BiPAP mask. He is breathing about 20 times per minute and appears to be more stable. He is more awake than he was yesterday when I saw him. He denies any pain. He does have lower extremity edema. He also complains of some abdominal wall pain due to what appears to be cellulitis. PAST MEDICAL HISTORY: Significant for coronary artery disease, chronic atrial fibrillation, hypertension, diabetes, end-stage renal disease. He has had appendectomy and tonsillectomy. ALLERGIES: HE IS ALLERGIC TO ACCUPRIL. MEDICATIONS: He lives in the prison. According the prison records, he was taking Xarelto, taking sertraline, also taking basal insulin, atorvastatin, Tylenol as needed. He was on nystatin topical ointment. He is on Renvela for his renal insufficiency. He is taking allopurinol, Dulcolax, gabapentin, guaifenesin, levothyroxine, metoprolol, pantoprazole, and Xarelto. On his last admission, he was taking similar medications, but he was taken Eliquis, Lipitor, Colace, Procrit, Neurontin, insulin, Levaquin, levothyroxine, metoprolol, he was on nystatin powder, Protonix, sertraline, MiraLax. SOCIAL HISTORY: He resides in the prison. He has no alcohol or tobacco abuse. REVIEW OF SYSTEMS: He is unable to give an adequate review of systems at this time, but does complain the shoulder pain and abdominal wall pain, but denies any chest pain, but he complains shortness of breath on admission. PHYSICAL EXAMINATION: GENERAL: Reveals a morbidly obese gentleman. He appears to be relatively comfortable at this time with BiPAP mask. He uses a pencil to try to communicate by making notes. VITAL SIGNS: His blood pressure is 104/74, heart rate is 93, blood pressure 96/55. HEENT: Shows the head to be normocephalic and atraumatic. I cannot auscultate carotid pulses due to the upper airway noise associated with BiPAP. CHEST: Also his chest is clear anteriorly. I did not hear any rales, rhonchi, or wheezing. He does have decreased breath sounds throughout. CARDIOVASCULAR: Heart sounds are distant, but are irregular. I do not hear any gross murmurs. ABDOMEN: Shows morbid obesity. He has some what appears to be cellulitis with erythema noted on the left lateral abdominal wall. EXTREMITIES: Also showed a chronic changes of skin discoloration. I cannot palpate pedal pulses. I could also not palpate femoral pulses due to the large pannus. NEUROLOGIC: The patient yesterday was somewhat lethargic, but appears to be better today at the time of this dictation. SKIN: Warm and dry. IMPRESSION: 1. Acute respiratory failure. He is on the BiPAP mask at this time. He has refused to undergo intubation in the emergency room. He seems to be doing somewhat better at this time and has been followed by the acid crane operator. 2. Severe three-vessel end-stage coronary artery disease, which I will start him on at least heparin since he has cardiac enzymes elevated. We will repeat the cardiac enzymes. We will also obtain an echocardiogram for evaluation of left ventricular systolic function. He did have a normal ejection fraction in November. We will see if he has had any changes. 3. Non ST-segment elevation myocardial infarction. This also was associated with #2 with his end-stage coronary artery disease. His enzymes are positive. He also has a similar episode when he was here previously. 4. Diabetes. This will be dealt with by the primary care service. 5. History of chronic atrial fibrillation, for which he has been taking Xarelto. At this time, we will put him on heparin since he is unable to take p.o. medications. Obviously, this is a very difficult situation for this patient. He appears to be end-stage from several different medical problems and may benefit from just palliative care or hospice. 6. Morbid obesity. This obviously complicates all of his other issues. Job ID: [id number]
--- NOTE | 2019-01-14 20:11 | PRG ---
DATE OF SERVICE: 01/14/2019 SUBJECTIVE: The patient was seen and examined in ICU and on BiPAP, somnolent. OBJECTIVE: GENERAL: This is a morbidly obese male in no apparent distress. VITAL SIGNS: Temperature 99.1. Heart rate 91. Respiratory rate 21, blood pressure 97/52. HEENT: Atraumatic, normocephalic. NECK: Supple. CV: S1 and S2 heard. RESPIRATORY: Clear. GI: Abdomen is soft. MUSCULOSKELETAL: 1+ edema. DERMATOLOGIC: No skin rash. NEUROLOGIC: Alert and awake and oriented X3. LABORATORY DATA: Hemoglobin is 9.7. Potassium is 3.7, BUN is 44, creatinine is 3.2. ASSESSMENT AND PLAN: 1. End-stage renal disease. No acute indication for dialysis. The patient remains hypotensive, unable to have ultrafiltration. 2. Acute hypoxic hypercapnic respiratory failure. 3. Anemia of chronic disease. 4. Pwr-XC-gxeupeogx myocardial infarction. 5. Hypoalbuminemia. 6. Edema. 7. Morbid obesity. 8. Obesity hypoventilation syndrome. Prognosis guarded. We will continue dialysis on Tuesday, Tuesday, Tuesday if tolerates it. Continue close monitoring. Job ID: [id number]
[2019-01-15 03:59] LABS: Band 34 % (5-11); Hemoglobin 9.8 g/dL (14.0-18.0); Lymphocytes 11 % (21-51); MDiff Complete? YES; Mean Corpuscular HGB CONC 30.1 g/dL (32.0-36.0); Mean Corpuscular Hemoglobin 27.4 pg (27.0-31.0); Mean Corpuscular Volume 91.2 fL (78.0-98.0); Mean Platelet Volume 9.3 fL (7.4-10.4); Monocytes 3 % (0-10); Neutrophil 52 % (42-75); Platelet Count 222 thou/uL (130-400); Platelet Morphology Comment Appears Adequate; RBC Distribution Width 18.9 % (11.5-14.5); Red Blood Cell (RBC) Count 3.55 mill/uL (4.70-6.10); White Blood Cell (WBC) Count 9.4 thou/uL (4.8-10.8)
[2019-01-15] MEDS: Heparin 10,000 UNITS/ 10 ML VIAL SLOW IVP SCH ×3 (04:01→20:17)
[2019-01-15 04:04] LABS: Anion Gap 19 mmol/L (10-20); BUN (Urea Nitrogen) 53 mg/dL (8.4-25.7); Calc. Creatinine Clearance 46 mL/min (70-130); Calcium 9.2 mg/dL (7.8-10.44); Carbon Dioxide 30 mmol/L (22-29); Chloride 93 mmol/L (98-107); Estimated GFR-MDRD 17; Glucose 163 mg/dL (70-105); Potassium 3.5 mmol/L (3.5-5.1); Sodium 138 mmol/L (136-145)
--- NOTE | 2019-01-15 08:44 | PRG ---
DATE OF SERVICE: 01/15/2019 SUBJECTIVE: The patient seems to be doing okay. He came off the BiPAP earlier this morning. He is hungry and wants to eat. OBJECTIVE: VITAL SIGNS: Temperature 98.7, pulse 93, blood pressure 94/50, O2 saturation 100%; intake is 467, output is 0. HEENT: Unremarkable. NECK: No JVD. LUNGS: Clear anteriorly. CARDIAC: S1 and S2. Regular. ABDOMEN: Obese, soft, nontender. He has a panniculitis in the left lower quadrant. EXTREMITIES: Edematous. LABORATORY DATA: Sodium 138, potassium 3.5, chloride 93, CO2 of , creatinine 3.7, and glucose 163. White blood cell count 9.4, hematocrit 32.4, and platelet count 222, with 52% neutrophils, 34% bands. ASSESSMENT: 1. Myocardial infarction. 2. Cellulitis/panniculitis of the abdomen. 3. Chronic renal failure. 4. Obstructive sleep apnea. PLAN: 1. Continue BiPAP as needed. 2. Culture and empirically start Zosyn for the cellulitis. 3. Up in the chair as tolerated. 4. Discontinue A-line. 5. Dialysis. 6. Wean Levophed as tolerated. Job ID: [id number]
--- NOTE | 2019-01-15 09:20 | RAD ---
SINGLE VIEW CHEST: HISTORY: Pulmonary edema. COMPARISON: 12/16/2018 FINDINGS: A single view of the chest shows an enlarged but stable cardiomediastinal silhouette. There is no ev idence of consolidation, mass, or pleural effusion. IMPRESSION: Stable cardiomegaly. POS: [facility]
--- NOTE | 2019-01-15 09:30 | PRG ---
DATE OF SERVICE: 01/15/2019 SUBJECTIVE: The patient is seen and examined at bedside. He complains about the voice loss, this is most likely related to being on a BiPAP mask for more than 24 hours but overall, he feels better. OBJECTIVE: VITAL SIGNS: Blood pressure is 94/50, pulse is 93, respiratory rate is 26, O2 saturation is 100% on 4 L by nasal cannula. HEENT: His head is atraumatic and normocephalic. Eyes are PERRLA. Sclerae are nonicteric. Oral mucosa is somewhat dry. NECK: Supple, obese. LUNGS: Breath sounds diminished at both bases. HEART: S1 and S2. Irregularly irregular. No S3. No S4. ABDOMEN: Obese, tender to the left part of the abdomen. There is significant induration of this part of his abdomen with some erythema. Bowel sounds are present. EXTREMITIES: No clubbing, cyanosis, or edema. NEUROLOGICAL: He follows my commands. He moves his all four extremities. There is no any motor deficit. LABORATORY DATA: Labs showed white count of 9.4, hemoglobin 9.8, hematocrit 32.4, platelet count is 222,000. Sodium of 138, potassium 3.5, chloride 93, CO2 of 30, BUN 53, and creatinine 3.69. Glycemia is ranging from 141 to 161. His last troponin was 17.66. Blood cultures, no growth x2. IMPRESSION: 1. Acute respiratory failure with combined hypoxic hypercapnia, on BiPAP, changed to p.r.n. per home designer. 2. Hypotension. He still requires a Levophed to maintain his systolic blood pressure above 95. We will try to wean it off if it is possible. 3. Atrial fibrillation with event controlled ventricular rate, chronic. 4. Non ST-elevation myocardial infarction. 5. Congestive heart failure exacerbation. 6. Diabetes mellitus type 2. 7. Hypothyroidism. 8. Hyperlipidemia. 9. Panniculitis of the left side of the abdominal wall. 10. Elevated INR. DISCUSSION: The patient is started on heparin drip per Cardiology. Apparently, he has inoperable coronary artery disease. Also, he is started on antibiotic for his panniculitis. We will continue his heparin. We will keep him on aspirin and we will try to reconcile his home medications when he passes the speech therapy evaluation for his swallowing. We will observe his voice loss and get the ENT involved if this does not get much better. Once the blood pressure is under better control, he will be dialyzed per Nephrology. Job ID: [id number]
[2019-01-15] MEDS: Aspirin 300 MG Suppository PR SCH (09:59)
[2019-01-15] MEDS: Famotidine/PF 20 mg/2ml Vial SLOW IVP SCH (09:59)
[2019-01-15] MEDS: Piperacillin/Tazobactam 2.25 GM in Sodium Chloride 0.9% 100 ML IVPB SCH ×2 (10:00→20:40)
[2019-01-15] MEDS: Heparin 25,000 units/D5W 500 ML IVPB SCH ×2 (10:29→22:11)
[2019-01-15] MEDS: HumaLOG 300 UNITS/3 ML VIAL SC PRN ×2 (11:56→20:55)
[2019-01-15] MEDS: Norepinephrine 16 MG in Sodium Chloride 0.9% 250 ML 250 ML IVPB PRN (12:02)
--- NOTE | 2019-01-15 13:14 | PRG ---
DATE OF SERVICE: 01/15/2019 SUBJECTIVE: This is a 58-year-old gentleman being seen for end-stage kidney disease. The patient denies any nausea, vomiting, or dyspnea on exertion. Overnight events reviewed. OBJECTIVE: CONSTITUTIONAL: The patient is awake and alert. VITAL SIGNS: Pulse 93, breathing 16, blood pressure 162/63. GENERAL APPEARANCE AND MENTAL STATUS: Fair. HEAD/NECK: Normocephalic. Atraumatic. EYES: EOMI. No deformity. EARS: Clear. No ulcers. NOSE: Intact. No lesions. MOUTH: Clear. No discharge. THROAT: Clear. No exudate. LUNGS: Clear. No crackles. CARDIAC: S1, S2. No rub. ABDOMEN: Benign. Bowel sounds positive. GENITALIA/RECTUM: Quezada absent. BACK/EXTREMITIES: Has edema NEUROLOGICAL: Alert and motor intact. SKIN: LYMPHATICS: LABORATORY DATA: Labs show hemoglobin 9.8, potassium 3.2. IMPRESSION: 1. Stage 3 chronic kidney disease. Risks versus benefits were discussed. The patient has massive volume overload. The patient agreed to have dialysis. 2. Hypertension, stable, on pressors. If the blood pressure drops, we will hold off dialysis. 3. Anemia, stable. Overall prognosis is extremely poor that is a possibility. Job ID: [id number]
[2019-01-16] MEDS ORDERED: rOPINIRole HCl 2 MG TAB PO SCH (01:30)
[2019-01-16] MEDS: Norepinephrine 16 MG in Sodium Chloride 0.9% 250 ML 250 ML IVPB PRN ×3 (01:38→21:25)
[2019-01-16 03:01] LABS: #Eosinphils 0.1 thou/uL (0.0-0.7); #Lymphocytes 0.9 thou/uL (1.20-3.40); #Monocytes 0.5 thou/uL (0.11-0.59); #Neutrophils 8.4 thou/uL (1.40-6.50); %Basophils 0.2 % (0.0-1.0); %Eosinophils 1.1 % (0.0-10.0); %Lymphocytes 9.3 % (21.0-51.0); %Neutrophils 84.4 % (42.0-75.0); Hemoglobin 9.7 g/dL (14.0-18.0); Mean Corpuscular HGB CONC 30.1 g/dL (32.0-36.0); Mean Corpuscular Hemoglobin 27.3 pg (27.0-31.0); Mean Corpuscular Volume 90.8 fL (78.0-98.0); Mean Platelet Volume 9.1 fL (7.4-10.4); Platelet Count 211 thou/uL (130-400); RBC Distribution Width 18.8 % (11.5-14.5); Red Blood Cell (RBC) Count 3.56 mill/uL (4.70-6.10); White Blood Cell (WBC) Count 9.9 thou/uL (4.8-10.8)
[2019-01-16 03:14] LABS: Anion Gap 15 mmol/L (10-20); BUN (Urea Nitrogen) 35 mg/dL (8.4-25.7); Calc. Creatinine Clearance 61 mL/min (70-130); Calcium 8.9 mg/dL (7.8-10.44); Carbon Dioxide 31 mmol/L (22-29); Chloride 95 mmol/L (98-107); Estimated GFR-MDRD 23; Glucose 192 mg/dL (70-105); Potassium 3.7 mmol/L (3.5-5.1); Sodium 137 mmol/L (136-145)
[2019-01-16] MEDS: HumaLOG 300 UNITS/3 ML VIAL SC PRN ×3 (06:28→17:41)
[2019-01-16] MEDS ORDERED: Nystatin Powder 15 GM BOT TOP PRN (08:19)
[2019-01-16] MEDS ORDERED: Sevelamer Carbonate 800 MG TAB PO SCH (08:45)
[2019-01-16] MEDS ORDERED: Aspirin 325 mg Enteric Coated Tablet PO SCH (09:00)
[2019-01-16] MEDS: Midodrine HCl 5 MG TAB PO SCH ×3 (09:00→21:30)
--- NOTE | 2019-01-16 09:13 | PRG ---
DATE OF SERVICE: 01/16/2019 SUBJECTIVE: The patient is seen and examined at the bedside. His voice is still not back yet. His appetite is good after he was evaluated by speech therapist, and there was some question about his ability to swallow without any significant aspiration. I have made decision to start him on some diet and watch him clinically how he does. OBJECTIVE: VITAL SIGNS: Blood pressure is 108/50, pulse is 111, respiratory rate is 22, and O2 saturation is 98%. HEENT: His head is atraumatic and normocephalic. Sclerae are nonicteric. Oral mucosa is moist. NECK: Obese. LUNGS: Breath sounds are diminished at both bases. HEART: S1 and S2, irregularly irregular. No S3. No S4. ABDOMEN: Obese with left side panniculitis, tender to touch with some erythema of this area. EXTREMITIES: 1+ for peripheral edema, similar in bilateral lower extremities. NEUROLOGICAL: He follows my commands. He moves his all 4 extremities. There is no any motor deficits. LABORATORY DATA: Labs showed white count of 9.9, hemoglobin 9.7, hematocrit 32.3, and platelet count 211. APTT 66.8. Sodium of 137, potassium 3.7, chloride 95, CO2 of 31, BUN 35, creatinine 2.78, and glycemia is ranging from 127 to 220. Microbiology; blood culture from left brachiocephalic vein A-line is growing gram-negative maryam, 1/2 cultures. Further evaluation to follow. Two blood cultures done from central line are negative at 48 hours. IMPRESSION: 1. Respiratory failure with combined hypoxia and hypercapnia, improved. 2. Hypotension, most likely related to his recent cardiac non-ST elevation myocardial infarction. The patient is still requiring almost 20 mcg of Levophed. 3. Atrial fibrillation, chronic, which monitored by decontamination worker. 4. Non-ST elevation myocardial infarction. 5. Congestive heart failure. 6. Diabetes mellitus, type 2. 7. Coronary artery disease, three-vessel, inoperable secondary to the patient's morbid obesity. 8. Morbid obesity. 9. End-stage renal disease. 10. Hypothyroidism. 11. Panniculitis of the left side of the abdominal wall on antibiotic, which is Zosyn. PLAN: The plan is to start him on midodrine 5 mg 3 times a day to help his blood pressure and try to wean off Levophed, aspirin 81 mg. Heparin was stopped and Xarelto will be restarted tonight. We will continue close monitoring of his condition. Job ID: [id number]
--- NOTE | 2019-01-16 09:14 | PRG ---
DATE OF SERVICE: 01/16/2019 SUBJECTIVE: Seems to be doing well this morning, so, requiring some Levophed. He wore the BiPAP last night. OBJECTIVE: VITAL SIGNS: On exam, his temperature is 99.9, pulse 103, and blood pressure 97/72. He is on Levophed at 20 mcg/minutes. Intake for last 24 hours 1928 and output 3500. HEENT: Unremarkable. NECK: No JVD. LUNGS: Clear. CARDIAC: S1 and S2. Regular. ABDOMEN: Soft. EXTREMITIES: Edematous. LABORATORY DATA: White blood cell count 9.9, hematocrit 32.3, and platelet count 211. Sodium 137, potassium 3.7, BUN 37, creatinine 2.7, and glucose 192. ASSESSMENT: 1. Chronic renal failure, requiring hemodialysis. 2. Myocardial infarction. 3. Cellulitis/panniculitis of the abdomen. 4. Obstructive sleep apnea. 5. Hypotension, which is probably secondary to volume depletion. PLAN: 1. Start midodrine. 2. Continue the Zosyn for the cellulitis/panniculitis of the abdomen. Of note, there was a gram-negative maryam, it came out of blood cultures. 3. Keep in ICU for the time being. 4. Continue BiPAP as needed. Job ID: [id number]
--- NOTE | 2019-01-16 13:10 | PRG ---
DATE OF SERVICE: 01/16/2019 SUBJECTIVE: This is a 58-year-old gentleman being seen for end-stage renal disease. The patient denies any nausea, vomiting, or chest pain. OBJECTIVE: CONSTITUTIONAL: The patient is resting. VITAL SIGNS: Afebrile. Pulse 111, breathing 16, blood pressure 108/50. GENERAL APPEARANCE AND MENTAL STATUS: Fair. HEAD/NECK: Normocephalic. Atraumatic. EYES: EOMI. No deformity. EARS: Clear. No ulcers. NOSE: Intact. No lesions. MOUTH: Clear. No discharge. THROAT: Clear. No exudate. LUNGS: Clear. No crackles. CARDIAC: S1, S2. No rub. ABDOMEN: Benign. Bowel sounds positive. GENITALIA/RECTUM: Quezada absent. BACK/EXTREMITIES: Edema 0+. NEUROLOGICAL: Alert and motor intact. SKIN: Chronic changes. LABORATORY DATA: Hemoglobin 9.7. IMPRESSION: 1. Stage 3 chronic kidney disease, remains on pressors, ultrafiltration 3.5 kg yesterday. 2. Hypertension, on pressors. 3. Anemia, stable. 4. Overall prognosis remains poor. Job ID: [id number]
[2019-01-16] MEDS: Piperacillin/Tazobactam 2.25 GM in Sodium Chloride 0.9% 100 ML IVPB SCH ×2 (13:34→21:29)
[2019-01-16] MEDS: Aspirin 81 mg Enteric Coated Tablet PO SCH (13:35)
[2019-01-16] MEDS: Famotidine/PF 20 mg/2ml Vial SLOW IVP SCH (13:35)
[2019-01-16] MEDS: Sevelamer Carbonate 800 MG TAB PO SCH ×2 (13:36→17:46)
[2019-01-16] MEDS ORDERED: ROPINIROLE 4 MG PO SCH (21:00)
[2019-01-16] MEDS ORDERED: ROPINIROLE HCL 4 MG PO SCH (21:00)
[2019-01-16] MEDS: Rivaroxaban 15 MG TAB PO SCH (21:30)
[2019-01-16] MEDS: rOPINIRole HCl 2 MG TAB PO SCH (21:30)
[2019-01-17 05:15] LABS: #Eosinphils 0.4 thou/uL (0.0-0.7); #Lymphocytes 1.2 thou/uL (1.20-3.40); #Monocytes 0.5 thou/uL (0.11-0.59); #Neutrophils 7.8 thou/uL (1.40-6.50); %Basophils 0.3 % (0.0-1.0); %Eosinophils 4.2 % (0.0-10.0); %Lymphocytes 12.3 % (21.0-51.0); %Monocytes 5.4 % (0.0-10.0); %Neutrophils 77.8 % (42.0-75.0); Hemoglobin 9.7 g/dL (14.0-18.0); Mean Corpuscular HGB CONC 29.5 g/dL (32.0-36.0); Mean Corpuscular Hemoglobin 27.1 pg (27.0-31.0); Mean Corpuscular Volume 91.9 fL (78.0-98.0); Mean Platelet Volume 8.6 fL (7.4-10.4); Platelet Count 231 thou/uL (130-400); RBC Distribution Width 18.7 % (11.5-14.5); Red Blood Cell (RBC) Count 3.56 mill/uL (4.70-6.10)
[2019-01-17 05:19] LABS: Anion Gap 13 mmol/L (10-20); BUN (Urea Nitrogen) 42 mg/dL (8.4-25.7); Calc. Creatinine Clearance 50 mL/min (70-130); Calcium 9.4 mg/dL (7.8-10.44); Carbon Dioxide 34 mmol/L (22-29); Chloride 93 mmol/L (98-107); Estimated GFR-MDRD 19; Glucose 170 mg/dL (70-105); Potassium 3.8 mmol/L (3.5-5.1); Sodium 136 mmol/L (136-145)
[2019-01-17] MEDS ORDERED: Levothyroxine Sodium 88 MCG TAB PO SCH (06:00)
--- NOTE | 2019-01-17 08:07 | PRG ---
DATE OF SERVICE: 01/17/2019 SUBJECTIVE: Mr. Lyons remains in the CCU. He is on a Levophed drip at 10 mcg/minute. His blood pressure is running systolic 70s to 110. He has no acute complaints. OBJECTIVE: VITAL SIGNS: Currently, his temperature is 97.8, pulse 103, blood pressure 90/55, and O2 saturation 98%. A 24-hour intake 1928, output 3500 by dialysis. HEENT: Unremarkable. NECK: No JVD. LUNGS: Clear anteriorly. CARDIAC: S1 and S2. Regular. ABDOMEN: Soft, the panniculitis in the left lower quadrant looks better. EXTREMITIES: No clubbing or cyanosis. He has generalized stasis changes throughout. LABORATORY DATA: Sodium 136, potassium 3.8, chloride 93, CO2 of 34, BUN 42, creatinine 3.4, and glucose 170. White blood cell count 10, hematocrit 32.7, and platelet count 231. Gram-negative maryam has not been identified from the blood culture. ASSESSMENT: 1. Myocardial infarction. 2. Chronic renal failure requiring hemodialysis. 3. Panniculitis of the abdomen. 4. Obstructive sleep apnea. 5. Hypotension, which is probably volume related. PLAN: 1. Continue midodrine. 2. Continue Zosyn. 3. Keep in ICU until he is weaned off the Levophed. Job ID: [id number]
[2019-01-17] MEDS ORDERED: Enoxaparin Sodium 40 MG/0.4 ML SYRINGE SC SCH (09:00)
[2019-01-17] MEDS: Sevelamer Carbonate 800 MG TAB PO SCH ×3 (09:10→17:28)
[2019-01-17] MEDS: Aspirin 81 mg Enteric Coated Tablet PO SCH (09:10)
[2019-01-17] MEDS: Piperacillin/Tazobactam 2.25 GM in Sodium Chloride 0.9% 100 ML IVPB SCH ×2 (09:10→20:10)
[2019-01-17] MEDS: Famotidine/PF 20 mg/2ml Vial SLOW IVP SCH (09:10)
[2019-01-17] MEDS: Midodrine HCl 5 MG TAB PO SCH ×3 (09:18→21:10)
--- NOTE | 2019-01-17 12:55 | PRG ---
DATE OF SERVICE: 01/17/2019 SUBJECTIVE: This is a 58-year-old gentleman being seen for end-stage kidney disease. The patient has a low, muffled voice. He remains on pressors. OBJECTIVE: CONSTITUTIONAL: The patient is resting, in no acute distress. VITAL SIGNS: Afebrile. Pulse 103, breathing 16, blood pressure 113/82. GENERAL APPEARANCE AND MENTAL STATUS: Fair. HEAD/NECK: Normocephalic. Atraumatic. EYES: EOMI. No deformity. EARS: Clear. No ulcers. NOSE: Intact. No lesions. MOUTH: Clear. No discharge. THROAT: Clear. No exudate. LUNGS: Clear. No crackles. CARDIAC: S1, S2. No rub. ABDOMEN: Benign. Bowel sounds positive. GENITALIA/RECTUM: [place] absent. BACK/EXTREMITIES: . NEUROLOGICAL: Alert and motor intact. SKIN: LYMPHATICS: LABORATORY DATA: Labs showed hemoglobin 9.7. Potassium is 3.8. ASSESSMENT AND PLAN: 1. Stage 6 chronic kidney disease with massive fluid overload, unable to do dialysis as no ultrafiltration is possible as the blood pressure drops. 2. Status post myocardial infarction. 3. Sepsis. 4. Anemia. Based on the overall the patient's health status, the patient can benefit from continuous venous-venous hemodialysis. This was discussed with the patient and we will plan for that. Overall prognosis remains poor. Risks versus benefits of all the treatment options were discussed with the patient, and the patient will discuss with the primary team as well. Job ID: [id number]
[2019-01-17] MEDS: HumaLOG 300 UNITS/3 ML VIAL SC PRN ×2 (13:10→17:29)
--- NOTE | 2019-01-17 14:37 | PRG ---
DATE OF SERVICE: 01/17/2019 SUBJECTIVE: The patient is seen and examined at the bedside. He is in . He does not have much complaints to offer. He is able to eat without any choking or aspiration. He still complains about abdominal pain. OBJECTIVE: VITAL SIGNS: Blood pressure is 97/67, pulse is 99, respiratory rate is 21, and O2 saturation is 92%. HEENT: Head is atraumatic and normocephalic. Eyes are PERRLA. Sclerae are nonicteric. Oral mucosa is moist. LUNGS: Breath sounds diminished at both bases. HEART: S1 and S2. Irregularly irregular. No S3. No S4. ABDOMEN: Obese with panniculitis located mainly in the left side of his abdominal wall, distillation operator helper to touch. EXTREMITIES: 1+ peripheral edema similar bilaterally, both lower extremities. NEUROLOGIC: He is alert and oriented x3. There is no any motor deficits. LABORATORY DATA: White count of 10.0, hemoglobin 9.7, hematocrit 32.7, platelet count 231,000. Sodium of 136, potassium 3.8, chloride 93, CO2 of 34, BUN 42, creatinine 3.41, glycemia is ranging from 152 to 205, calcium is 9.4. Echocardiogram showed small pericardial effusion. LV EF estimated at 45% to 50%. Moderately enlarged right ventricle cavity with left atrium moderately dilated. Mild enlarged right atrium. Mild mitral regurgitation. Mild tricuspid regurgitation. Moderate pulmonic regurgitation. IMPRESSION: 1. Respiratory failure with combined hypoxia and hypercapnia, improved. 2. Hypotension, felt to be volume related, but also could be related to his ysh-CE-gnjszfqgh myocardial infarction. 3. Ghz-MA-swkbcwdlf myocardial infarction. 4. Atrial fibrillation, which is chronic. 5. Congestive heart failure with LV EF estimated at 40% to 45%, systolic, chronic. 6. Diabetes mellitus type 2, relatively well controlled. 7. Coronary artery disease, three vessel, inoperable secondary to patient's morbid obesity. 8. Morbid obesity. 9. End-stage renal disease. 10. Hypothyroidism. 11. Panniculitis of the left side of the abdominal wall, on Zosyn. PLAN: Continue Zosyn. Continue midodrine. We are trying to wean him off Levophed. He is down to 10 from 20 mg yesterday. Continue aspirin and Xarelto. Continue close monitoring. Nephrology is recommending hemodialysis, which is not available at this facility and the process of transferring the patient to higher level care in [place] is started. We are waiting for hospital in [place]. Job ID: [id number]
[2019-01-17 20:06] VITALS: TEMP 98.7
[2019-01-17] MEDS: rOPINIRole HCl 2 MG TAB PO SCH (20:10)
[2019-01-17] MEDS: Rivaroxaban 15 MG TAB PO SCH (20:10)
== END 2019-01-17 21:25 | disposition short-term general hospital (02) | DRG 280 ==
LOC: ERS 13:07 → CCU 16:52
PROVIDERS: ADMIT Internal Medicine; ATTEND Internal Medicine
PROC: 5A09457 Assistance with Respiratory Ventilation, 24-96 Consecutive Hours, Continuous Positive Airway Pressure (ICD-10-PCS; principal; 2019-01-13)
PROC: 3E033XZ Introduction of Vasopressor into Peripheral Vein, Percutaneous Approach (ICD-10-PCS; 2019-01-13)
DX: I21.4 Non-ST elevation (NSTEMI) myocardial infarction (principal); N18.6 End stage renal disease; J96.01 Acute respiratory failure with hypoxia; J96.02 Acute respiratory failure with hypercapnia; I50.33 Acute on chronic diastolic (congestive) heart failure; R57.0 Cardiogenic shock; I13.2 Hypertensive heart and chronic kidney disease with heart failure and with stage 5 chronic kidney disease, or end stage renal disease; N25.81 Secondary hyperparathyroidism of renal origin; E66.2 Morbid (severe) obesity with alveolar hypoventilation; Z68.43 Body mass index [BMI] 50.0-59.9, adult; I48.91 Unspecified atrial fibrillation; I25.10 Atherosclerotic heart disease of native coronary artery without angina pectoris; I25.2 Old myocardial infarction; E11.22 Type 2 diabetes mellitus with diabetic chronic kidney disease; E03.9 Hypothyroidism, unspecified; M79.3 Panniculitis, unspecified; D63.1 Anemia in chronic kidney disease; M19.90 Unspecified osteoarthritis, unspecified site; F32.9 Major depressive disorder, single episode, unspecified; D50.9 Iron deficiency anemia, unspecified; F41.9 Anxiety disorder, unspecified; Z79.899 Other long term (current) drug therapy; Z79.4 Long term (current) use of insulin; Z88.8 Allergy status to other drugs, medicaments and biological substances; Z91.15 Patient's noncompliance with renal dialysis; Z91.14 Patient's other noncompliance with medication regimen; Z99.2 Dependence on renal dialysis; Z79.01 Long term (current) use of anticoagulants
CPT/HCPCS: 36415; 36416; 36556; 71045; 80048; 80053; 82553; 82805; 83605; 83880; 84484; 85025; 85610; 85730; 87040; 87077; 87149; 87186; 93005; 93306; 94660; 94760; 96365; 96366; J1644; J2543; J3010; J7050; J7070; S0028

== ENCOUNTER 2019-02-06 14:16 | Inpatient (IN) | payer MEDICARE, MEDICAID ==
[2019-02-06] MEDS ORDERED: Norepinephrine 8 MG/0.9% NS 250 ML ONE (16:36)
[2019-02-06] MEDS ORDERED: Norepinephrine 8 MG/250 ML BAG IVPB PRN (18:21)
[2019-02-06] MEDS ORDERED: Ipratropium Bromide 2.5 ml Neb NEB PRN (18:46)
[2019-02-06] MEDS ORDERED: Bisacodyl 5 MG TAB PO PRN (18:50)
[2019-02-06] MEDS ORDERED: Ondansetron ODT 4 MG TAB PO PRN (18:50)
[2019-02-06] MEDS ORDERED: Guaifenesin DM 100-10/5 ML UDCUP PO PRN (18:50)
[2019-02-06] MEDS ORDERED: Dextrose 50% Abboject 50 ML SYRINGE SLOW IVP PRN (19:31)
[2019-02-06] MEDS ORDERED: Dextrose 5% in Water 1,000 ML IV PRN (19:31)
[2019-02-06] MEDS ORDERED: Norepinephrine 32 MG in Dextrose 5% in Water 218 ML IVPB PRN (20:20)
[2019-02-06] MEDS ORDERED: Nystatin 100,000 Units/mL UDCUP SSW SCH (21:00)
[2019-02-06] MEDS: Apixaban 5 MG TAB PO SCH (21:22)
[2019-02-06] MEDS: Hydrocortisone Sod Succ/PF 100 mg/2 ml Vial IVP SCH (21:22)
[2019-02-06] MEDS: Atorvastatin Calcium 20 MG TAB PO SCH (21:23)
[2019-02-06] MEDS: Clotrimazole 1 % Cream 30 GM TUBE TOP SCH (21:23)
[2019-02-06] MEDS: Gabapentin 100 MG CAP PO SCH (21:26)
[2019-02-06] MEDS: Docusate 100 MG CAP PO SCH (21:26)
[2019-02-06] MEDS: Lactinex Tablet PO SCH (21:26)
[2019-02-06] MEDS: Sucralfate 1 GM TAB PO SCH (21:27)
[2019-02-06] MEDS: Polyethylene Glycol 3350 17 GM Packet PO SCH (21:27)
--- NOTE | 2019-02-06 22:48 | CON ---
DATE OF CONSULTATION: 02/06/2019 SERVICE: Pulmonary Medicine. REASON FOR CONSULT: ICU patient. HISTORY OF PRESENT ILLNESS: The patient is a 58-year-old white male with past medical history significant for morbid obesity and sleep apnea, who presented to the hospital on the December with increasing shortness of breath. Ultimately, he was noted to have Pseudomonas bacteremia. He was in septic shock, and required some dialysis. He was not tolerating intermittent dialysis. As such, he was transitioned to an outside facility at [facility] in [place], so that he can undergo continuous renal replacement therapy. He did this for a period of three days. After that, he was able to tolerate some conventional dialysis with the aid of a little bit of Levophed. Ultimately, disposition was challenging and so they requested for him to return to our hospital. Based on what they described on the phone, there were no contraindications taking him back. I was told that when he left, he was mentating quite well. That being said, in route, he went without BiPAP, and was strapped to a gurney. With this, he had increasing respiratory difficulties and by the time he arrived here, he was encephalopathic. We quickly put him back on the BiPAP, and blew off some carbon dioxide. As we did this, his mentation improved. He denies any current shortness of breath, fevers, chills, nausea, or vomiting. He indicates having no abdominal discomfort. His last bowel movement was yesterday. He has a Trialysis catheter that has been in place for over 2 weeks. Otherwise, he underwent a full course of cefepime for Pseudomonas bacteremia. This was a pansensitive organism and should have been more than adequately treated. PAST MEDICAL HISTORY: 1. Coronary artery disease. 2. Chronic diastolic heart failure. 3. Atrial fibrillation. 4. Type 2 diabetes mellitus. 5. Hypertension. 6. Dyslipidemia. 7. Hypothyroidism. 8. Morbid obesity. 9. Chronic hypoxic and hypercapnic respiratory failure. 10. End-stage renal disease. 11. Osteoarthritis. 12. Hyperparathyroidism. 13. Urinary tract infections, recurrent. 14. Anxiety disorder. 15. Major depressive disorder. PAST SURGICAL HISTORY: 1. Appendectomy. 2. Tonsillectomy. 3. Left leg surgery. 4. Shunt in right arm for dialysis. 5. Trialysis catheter. SOCIAL HISTORY: Negative for alcohol, tobacco, or illicit drug use. He previously was a resident at a nursing facility. He is confined to bed. FAMILY HISTORY: Noncontributory. ALLERGIES: CARLOS INHIBITORS. MEDICATIONS: List of his inpatient medications was reviewed. Multiple updates were made at this time. REVIEW OF SYSTEMS: General, head, ears, eyes, nose, throat, cardiovascular, respiratory, GI, , musculoskeletal, neurologic, and skin is negative except as mentioned in the HPI. PHYSICAL EXAMINATION: VITAL SIGNS: Afebrile, pulse 103, blood pressure 95/36, respirations 19, and saturation 97% on BiPAP. His FiO2 is 27%. HEENT: Normocephalic and atraumatic. Sclerae white. Conjunctivae pink. Oral mucosa is moist without lesions. LUNGS: There is decent air entry for his size. I cannot appreciate any adventitious sounds. There is certainly no prolonged expiratory phase. I do not appreciate wheezing or rhonchi. HEART: Tachycardic. Regular. ABDOMEN: Soft, nontender, nondistended. Bowel sounds are positive. MUSCULOSKELETAL: No cyanosis or clubbing. There is 1+ pitting in the bilateral lower extremities. NEUROLOGIC: Grossly nonfocal. LABORATORY DATA: Outside facility laboratories were reviewed. Creatinine and BUN are elevated. Basic metabolic profile is otherwise essentially unremarkable. His blood cultures from the 15 of January were growing Pseudomonas aeruginosa in 1/. IMAGING: Recent echocardiogram showed a mildly reduced EF of 45%. This is a technically difficult study. Left atrium is moderately dilated. ASSESSMENT: 1. Acute on chronic hypoxic and hypercapnic respiratory failure. 2. Bacteremia secondary to Pseudomonas aeruginosa, status post full course of antibiotic. 3. End-stage renal disease. 4. Morbid obesity with obesity hypoventilation syndrome. 5. Extreme deconditioning. DISCUSSION AND PLAN: I put the patient on BiPAP urgently at bedside. I titrated to meet the effect of what we needed. We will give him breaks 3 times daily and increase as tolerated. We will continue a Levophed. His blood pressures are quite marginal. As such, I will initiate some stress doses of steroids. Vasopressin will be used if necessary. If the patient shows increasing signs of sepsis, panculture and empiric antibiotics will once again be considered, but for now, we will continue to observe him through time. Dr. Juárez will resume coverage tomorrow morning as he has an established relationship with Mr. Lyons. TIME SPENT: Critical care time 30 minutes spent titrating BiPAP at bedside. Job ID: [id number]
--- NOTE | 2019-02-07 01:38 | HP ---
PRIMARY CARE PHYSICIAN: Dr. Fernandez. CHIEF COMPLAINT: Continued hypotension on Levophed. HISTORY OF PRESENT ILLNESS: This is a 58-year-old white male, who was recently admitted to our hospital with worsening shortness of breath and had hmb-NT-fomebtnaw myocardial infarction with persistent hypotension. He was unable to get his dialysis due to the persistence of the hypotension, so he was transferred to a hospital in [place] for continuous venous hemodialysis. This was done for about 5 days at their hospital and he was eventually able to be transitioned over to regular hemodialysis with a little bit higher dose of Levophed during his dialysis sessions. He has been back on regular dialysis for about a week and so he has been now transferred back to our hospital for continued care. PAST MEDICAL HISTORY: The patient is very weak and hard to understand due to a loss of voice recently and fatigue. Some most of the history is taken from the chart. 1. Coronary artery disease with recent non-ST elevation [place]. 2. Diastolic congestive heart failure with maintained ejection fraction. 3. Atrial fibrillation. 4. Diabetes mellitus type 2, insulin dependent. 5. Hypothyroidism. 6. End-stage renal disease, on dialysis. 7. Previous essential hypertension. 8. Morbid obesity. 9. Osteoarthritis. 10. Hyperparathyroidism secondary to renal disease. 11. Recurrent urinary tract infections. 12. Iron deficiency anemia. 13. Noncompliance with medications and dialysis per records. PSYCHIATRIC HISTORY: 1. Anxiety. 2. Depression. PAST SURGICAL HISTORY: 1. Appendectomy. 2. Tonsillectomy. 3. Left leg surgery. 4. Shunt in right arm for dialysis. SOCIAL HISTORY: The patient previously lived in the [facility]. No tobacco, alcohol, or illicit drug use. He is not able to walk and had that for sometime now. FAMILY HISTORY: Significant for diabetes. ALLERGIES: CARLOS INHIBITORS. CURRENT MEDICATIONS: From outside hospital. 1. Norepinephrine drip, titrated to maintain blood pressure. 2. Acetaminophen as needed. 3. Eliquis 5 mg twice a day. 4. Lipitor 20 mg at night. 5. Vitamin D3 4000 units daily. 6. Plavix 75 mg daily. 7. Lotrimin 1% cream apply topically twice a day. 8. Colace 100 mg twice a day. 9. Epoetin 75503 units IV as directed, Tuesday, Tuesday, and Tuesday. 10. Famotidine 20 mg daily. 11. Gabapentin 100 mg 3 times a day. 12. Atrovent neb twice a day as needed given with Brovana. 13. DuoNeb four times a day. 14. Acidophilus one capsule twice a day. 15. Synthroid 88 mcg daily. 16. Midodrine 15 mg 3 times a day. 17. Nystatin powder apply topically twice a day as needed. 18. Mycostatin oral suspension 5 mL swish and swallow t.i.d. 19. MiraLAX 17 g twice a day. 20. Ropinirole extended release 4 mg at night. 21. Zoloft 25 mg daily. 22. Sevelamer 2.4 g three times a day. 23. Carafate 1 g p.o. a.c. and at bedtime. REVIEW OF SYSTEMS: CONSTITUTIONAL: No fevers. No chills. EYES: No double vision or blurred vision. ENT: No congestion or drainage. No sore throat. He has had some difficulty swallowing and loss of voice. He had to have an NG tube at the other hospital for a while, but he is now to where he can eat nectar thickened liquids and mechanical soft diet. CARDIOVASCULAR: No chest pain. No palpitations or racing heart. PULMONARY: He has not noticed any subjective shortness of breath, coughing, or wheezing, but he does get very fatigued and sleepy per nursing staff, has been on BiPAP intermittently. He had to be brought on BiPAP when he first got here and has now been taken off and is more alert. GASTROINTESTINAL: No abdominal pain. No nausea or vomiting. No diarrhea or constipation. GENITOURINARY: Does not produce any urine. MUSCULOSKELETAL: No muscle aches or joint pains currently. SKIN: He has some bedsores as per nursing. NEUROLOGIC: He denies any numbness, tingling, or focal weakness. PHYSICAL EXAMINATION: VITAL SIGNS: Blood pressure 141/68, pulse 88, respirations 20, O2 saturation 94% on 4 L nasal cannula currently. GENERAL: This is a well-developed, morbidly obese white male, who appears very weak and has almost no voice, but he is currently alert and breathing easily off the BiPAP mask. HEENT: Pupils equal, round, and reactive to light. Oropharynx clear without lesions, erythema, or exudate. NECK: Supple. No lymphadenopathy. No thyroid nodules or enlargement. HEART: Regular rate and rhythm. No murmurs, rubs, or gallops. LUNGS: Clear to auscultation bilaterally though it is difficult to auscultate well due to body habitus. No wheezes, crackles, or rhonchi. ABDOMEN: Soft, obese, nontender to palpation. Normoactive bowel sounds. No hepatosplenomegaly or other masses. EXTREMITIES: No clubbing, cyanosis, or edema. SKIN: He does have some skin breakdown on his bottom what looks like a stage II pressure ulcer. NEUROLOGIC: The patient is able to move all extremities equally, though he has severe weakness in his lower extremities. He has no facial droop. PSYCHIATRIC: Alert and oriented x3. Normal mood and affect. LABORATORY DATA: None currently available. IMAGING: None currently available. ASSESSMENT: 1. Acute on chronic hypercapnic and hypoxic respiratory failure. The patient continues to need BiPAP definitely at night and off during the day if he is sleepy. Dr. Montoya has already been notified and Dr. Capellan will take over care in the morning. 2. Persistent hypotension with recent non-ST elevation myocardial infarction. The patient was evaluated by Cardiology previously and there was no intervention possible for his coronary artery disease, so he has been treated conservatively. We will continue the Levophed as needed to keep his blood pressure up. We will continue all of his cardiac medicines as well, as well as his Midodrine. 3. Diabetes mellitus type 2. We will do fingerstick blood sugars q.a.c. and at bedtime and give sliding scale as needed. 4. End-stage renal disease, on dialysis. The patient has been successfully dialyzed with the Levophed assistance to keep the blood pressure up at a hospital in [place]. We will consult Dr. Mejia for continued dialysis here. 5. Dysphagia with loss of voice and significant weakness. We will consult speech therapy here and we will continue the therapy. There was some notation of a possible need for ENT to evaluate. We will have our speech therapist to evaluate the patient and see if that is necessary. 6. Gastrointestinal prophylaxis. We will put the patient on Pepcid daily. 7. Deep venous thrombosis prophylaxis. We will continue the patient's Eliquis. 8. History of atrial fibrillation, on anticoagulation. 9. Code status, I did discuss this with the patient. He states he is a full code. He states that should he be incapacitated, he would like his friend, Za Mendoza, to be his medical decision maker. He has not had medical power of county attorney filled out for her yet, so he would like to do that. We will consult Palliative Care to assist in getting the appropriate paperwork filled out. Job ID: [id number]
[2019-02-07 05:12] LABS: #Lymphocytes 0.7 thou/uL (1.20-3.40); #Monocytes 0.1 thou/uL (0.11-0.59); #Neutrophils 7.2 thou/uL (1.40-6.50); %Basophils 0.4 % (0.0-1.0); %Eosinophils 0.2 % (0.0-10.0); %Monocytes 1.4 % (0.0-10.0); Hemoglobin 9.8 g/dL (14.0-18.0); Mean Corpuscular HGB CONC 29.7 g/dL (32.0-36.0); Mean Corpuscular Hemoglobin 27.5 pg (27.0-31.0); Mean Corpuscular Volume 92.5 fL (78.0-98.0); Platelet Count 343 thou/uL (130-400); RBC Distribution Width 20.1 % (11.5-14.5); Red Blood Cell (RBC) Count 3.56 mill/uL (4.70-6.10)
[2019-02-07 05:35] LABS: ALT (SGPT) 9 U/L (8-55); AST (SGOT) 18 U/L (5-34); Albumin 3.2 g/dL (3.5-5.0); Alkaline Phosphatase 133 U/L (40-150); Anion Gap 15 mmol/L (10-20); BUN (Urea Nitrogen) 41 mg/dL (8.4-25.7); Bilirubin, Total 0.7 mg/dL (0.2-1.2); Calc. Creatinine Clearance 46 mL/min (70-130); Calcium 10.3 mg/dL (7.8-10.44); Carbon Dioxide 30 mmol/L (22-29); Chloride 91 mmol/L (98-107); Estimated GFR-MDRD 17; Globulin 4.3 g/dL (2.4-3.5); Glucose 211 mg/dL (70-105); Potassium 4.8 mmol/L (3.5-5.1); Protein, Total 7.5 g/dL (6.0-8.3); Sodium 131 mmol/L (136-145)
[2019-02-07] MEDS: Levothyroxine Sodium 88 MCG TAB PO SCH (06:36)
[2019-02-07] MEDS: Hydrocortisone Sod Succ/PF 100 mg/2 ml Vial IVP SCH ×3 (06:37→17:34)
[2019-02-07] MEDS: Midodrine HCl 5 MG TAB PO SCH ×3 (08:30→17:43)
[2019-02-07] MEDS: Famotidine 20 MG TAB PO SCH (09:04)
[2019-02-07] MEDS: Lactinex Tablet PO SCH ×2 (09:04→20:23)
[2019-02-07] MEDS: Clopidogrel Bisulfate 75 MG TAB PO SCH (09:04)
[2019-02-07] MEDS: Apixaban 5 MG TAB PO SCH ×2 (09:04→20:23)
[2019-02-07] MEDS: Docusate 100 MG CAP PO SCH ×2 (09:05→20:30)
[2019-02-07] MEDS: Gabapentin 100 MG CAP PO SCH ×3 (09:05→20:23)
[2019-02-07] MEDS: Clotrimazole 1 % Cream 30 GM TUBE TOP SCH ×2 (09:06→20:26)
[2019-02-07] MEDS: Sevelamer Carbonate 800 MG TAB PO SCH ×3 (09:06→17:43)
[2019-02-07] MEDS: Polyethylene Glycol 3350 17 GM Packet PO SCH ×2 (09:07→20:30)
[2019-02-07] MEDS: Nystatin Powder 15 GM BOT TOP PRN ×2 (09:10→20:26)
[2019-02-07] MEDS: Nystatin 500,000 UNITS/5 ML UDCUP SSW SCH ×3 (09:14→21:15)
[2019-02-07] MEDS: Sucralfate 1 GM TAB PO SCH ×4 (09:27→20:23)
--- NOTE | 2019-02-07 09:53 | PRG ---
DATE OF SERVICE: 02/07/2019 TIME SPENT: 35 minutes critical time. SUBJECTIVE: This patient remains on BiPAP. He was able to come off for about 5 minutes. PHYSICAL EXAMINATION: VITAL SIGNS: Temperature 98.5, pulse 103, and blood pressure 156/47. 24-hour intake of 593, output zero. The patient is currently on a norepinephrine drip at 20 mcg/minute. HEENT: Dry oral mucous membranes. NECK: No JVD. He has a left IJ Trialysis catheter in place. LUNGS: Coarse breath sounds anteriorly. CARDIOVASCULAR: S1, S2. Regular. ABDOMEN: Obese, soft, nontender. EXTREMITIES: Edematous throughout. LABORATORY DATA: White blood cell count 8, hematocrit 33, and platelet count 343. Sodium 131, potassium 4.8, chloride 93, CO2 of 30, BUN 41, creatinine 3.5, and glucose 211. ASSESSMENT: Mr. Lyons has a very complicated situation. He has chronic hypercapnic and hypoxic respiratory failure. He adamantly refuses intubation. He has been managed on BiPAP for the better part of 3 weeks. Additionally, he has end-stage renal disease, requiring hemodialysis with fluctuating blood pressure that required [facility] in [place], but the plan is to resume hemodialysis here. Unfortunately, he is already back on Levophed for his blood pressure. It is my opinion that his problems are not fixable. I would encourage palliative care to assist in decision making. I do not see anything that we can do that can meaningfully prolong this patient's life. I talked to him about some of these issues today. He seems somewhat surprised at the conversation, but I thought it was a conversation worth having. I reviewed the medication list. He is currently on stress dose hydrocortisone for presumed renal insufficiency. We will make an attempt to wean Levophed, but I am not sure if we will have any success there. We need to trend his labs. If he wants to continue on, then I would advocate tracheostomy. Job ID: [id number]
--- NOTE | 2019-02-07 09:55 | PDOC.PN ---
- Subjective Encounter Start Date: 02/07/19 Encounter Start Time: 11:00 Subjective: Patient requiring Bipap most of the time now. Was awake for PT/OT evals -: this morning but now sleeping. No complaints this morning. - Objective Resuscitation Status - Order Detail: 02/06/19 19:12 Resuscitation Status Routine Resuscitation Status: FULL: Full Resuscitation Discussed with: Patient DAQUAN Reviewed: Yes Vital Signs & Weight: Vital Signs (12 hours) Temp Pulse Resp Pulse Ox 02/07/19 07:27 105 H 02/07/19 07:19 109 H 27 H 97 02/07/19 03:00 98.5 F 02/06/19 23:00 98.4 F Weight Weight 325 lb Most Recent Monitor Data Heart Rate from ECG 98 NIBP 103/64 NIBP BP-Mean 94 Respiration from ECG 25 SpO2 92 I&O: 02/06/19 02/07/19 02/08/19 06:59 06:59 06:59 Intake Total 593.5 Output Total 0 Balance 593.5 Result Diagrams: 02/07/19 04:50 02/07/19 04:50 Additional Labs: Accuchecks 02/06/19 02/06/19 21:31 17:35 POC Glucose 194 H 278 H Phys Exam - Physical Examination Constitutional: NAD HEENT: moist MMs Respiratory: no wheezing, no rales, no rhonchi Cardiovascular: RRR Gastrointestinal: soft, positive bowel sounds Musculoskeletal: no edema Neurological: non-focal Deviation from normal: sleeping, arousable Dx/Plan (1) Hypotension Status: Acute Comment: likely multifactoral, levophed dependent (2) Dysphagia Code(s): R13.10 - DYSPHAGIA, UNSPECIFIED Status: Acute Comment: weak voice, working with speech therapy in [place] (3) Acute on chronic respiratory failure with hypoxia and hypercapnia Code(s): J96.21 - ACUTE AND CHRONIC RESPIRATORY FAILURE WITH HYPOXIA; J96.22 - ACUTE AND CHRONIC RESPIRATORY FAILURE WITH HYPERCAPNIA Status: Acute Comment : Bipap as needed (4) Pseudomonal bacteremia Code(s): R78.81 - BACTEREMIA Status: Resolved Comment: s/p full course of treatment with Cefepime (5) Anemia of renal disease Code(s): D63.1 - ANEMIA IN CHRONIC KIDNEY DISEASE Status: Chronic Comment: stable (6) CAD (coronary artery disease) Code(s): I25.10 - ATHSCL HEART DISEASE OF [place] CORONARY ARTERY W/O ANG PCTRS Status: Chronic Qualifiers: Coronary Disease-Associated Artery/Lesion type: [place] artery [place] vs. transplanted heart: [place] heart Associated angina: without angina Qualified Code(s): I25.10 - Atherosclerotic heart disease of [place] coronary artery without angina pectoris Comment: NSTEMI in 12/2018 (7) COPD (chronic obstructive pulmonary disease) Status: Chronic (8) DM2 (diabetes mellitus, type 2) Status: Chronic Qualifiers: Diabetes mellitus complication detail: with chronic kidney disease Chronic kidney disease stage: on chronic dialysis Comment: (9) ESRD (end stage renal disease) on dialysis Code(s): N18.6 - END STAGE RENAL DISEASE; Z99.2 - DEPENDENCE ON RENAL DIALYSIS Status: Chronic (10) Gout Code(s): M10.9 - GOUT, UNSPECIFIED Status: Chronic Qualifiers: Gout site: unspecified site Comment: No Exacerbation noted. (11) Hypertension Code(s): I10 - ESSENTIAL (PRIMARY) HYPERTENSION Status: Chronic Qualifiers: Hypertension type: essential hypertension Qualified Code(s): I10 - Essential (primary) hypertension (12) Lymphedema Code(s): I89.0 - LYMPHEDEMA, NOT ELSEWHERE CLASSIFIED Status: Chronic (13) Morbid obesity due to excess calories Code(s): E66.01 - MORBID (SEVERE) OBESITY DUE TO EXCESS CALORIES Status: Chronic (14) Obesity hypoventilation syndrome Code(s): E66.2 - MORBID (SEVERE) OBESITY WITH ALVEOLAR HYPOVENTILATION Status : Chronic (15) Paroxysmal a-fib Code(s): I48.0 - PAROXYSMAL ATRIAL FIBRILLATION Status: Chronic Comment: on Eliquis - Plan cont current plan of care, PT/OT poor prognosis, doesn't really seem to be improving * . - Discharge Day Encounter end time: 11:10
[2019-02-07] MEDS: EPOETIN ALFA-EPBX (ESRD) 10,000 UNIT/ML VIAL IVP SCH (11:00)
[2019-02-07] MEDS: HumaLOG 300 UNITS/3 ML VIAL SC PRN ×2 (12:09→17:43)
--- NOTE | 2019-02-07 18:13 | CON ---
DATE OF CONSULTATION: 02/07/2019 CONSULTING PHYSICIAN: Dr. Wild. REASON FOR CONSULTATION: End-stage renal disease evaluation and care. REASON FOR ADMISSION: Hypotension. HISTORY OF PRESENT ILLNESS: This is a 58-year-old male with history of end-stage renal disease, coronary artery disease, atrial fibrillation, and type 2 diabetes, came to the hospital with . He was actually sent from [facility] in [place] after being treated there. He was on Levophed there too. Currently, on Levophed and in ICU and on a BiPAP. The patient is due for dialysis Tuesday, Tuesday, and Tuesday. PAST MEDICAL HISTORY: Positive for end-stage renal disease, coronary artery disease, congestive heart failure, atrial fibrillation, type 2 diabetes, morbid obesity, PAST SURGICAL HISTORY: Appendectomy, tonsillectomy, leg surgery, and dialysis shunt placement. MEDICATIONS: Reviewed. ALLERGIES: CARLOS INHIBITOR. FAMILY HISTORY: Positive for diabetes. SOCIAL HISTORY: No smoking, alcohol, or illicit drugs. REVIEW OF SYSTEMS: CONSTITUTIONAL: Negative for weight loss or gain, ability to conduct usual activities. SKIN: Negative for rash, itching. EYES: Negative for double vision, pain. ENT/MOUTH: Negative for nose bleeding, neck stiffness, pain, tenderness. CARDIOVASCULAR: Negative for palpitations, dyspnea on exertion, orthopnea. RESPIRATORY: Negative for shortness of breath, wheezing, cough, hemoptysis, fever or night sweats. GASTROINTESTINAL: Negative for poor appetite, abdominal pain, heartburn, nausea, vomiting, constipation, or diarrhea. GENITOURINARY: Negative for urgency, frequency, dysuria, nocturia. MUSCULOSKELETAL: Negative for pain, swelling. NEUROLOGIC/PSYCHIATRIC: Negative for anxiety, depression. ALLERGY/IMMUNOLOGIC: Negative for skin rash, bleeding tendency. PHYSICAL EXAMINATION: GENERAL: This is a morbidly obese male, in no apparent distress. VITAL SIGNS: Temperature 98.7, pulse 75, respiratory rate 20, blood pressure 130/97. HEENT: Atraumatic and normocephalic. Oral mucosa is moist. NECK: Supple. CV: S1 and S2 heard. Regular rate and rhythm. RESPIRATORY: Clear. GI: Abdomen is soft. MUSCULOSKELETAL: 1+ edema. DERMATOLOGIC: No skin rash. NEUROLOGIC: Alert and awake. PSYCHIATRIC: Normal mood and affect. LABORATORY DATA: Hemoglobin is 9.8. Potassium is 4.2, BUN is 41, creatinine is 3.5. ASSESSMENT AND PLAN: 1. End-stage renal disease. Continue on dialysis. 2. Hypertension. 3. Edema. 4. Anemia. 5. Morbid obesity. Plan to continue on dialysis as tolerated. Job ID: [id number]
[2019-02-07] MEDS: Atorvastatin Calcium 20 MG TAB PO SCH (20:23)
[2019-02-07 23:29] LABS: HBSAg Index 0.31 S/CO (0-0.99); Hep B Surf Ag Non-Reactive S/CO (NonReactive)
[2019-02-08] MEDS: Hydrocortisone Sod Succ/PF 100 mg/2 ml Vial IVP SCH ×4 (00:03→18:45)
[2019-02-08] MEDS: Acetaminophen 325 MG TAB PO PRN (04:18)
[2019-02-08 05:06] LABS: #Lymphocytes 0.8 thou/uL (1.20-3.40); #Monocytes 0.4 thou/uL (0.11-0.59); #Neutrophils 6.1 thou/uL (1.40-6.50); %Basophils 0.1 % (0.0-1.0); %Eosinophils 0.1 % (0.0-10.0); %Lymphocytes 11.3 % (21.0-51.0); %Monocytes 5.4 % (0.0-10.0); %Neutrophils 83.1 % (42.0-75.0); Hemoglobin 9.2 g/dL (14.0-18.0); Mean Corpuscular HGB CONC 29.4 g/dL (32.0-36.0); Mean Corpuscular Hemoglobin 27.2 pg (27.0-31.0); Mean Corpuscular Volume 92.7 fL (78.0-98.0); Mean Platelet Volume 8.8 fL (7.4-10.4); Platelet Count 306 thou/uL (130-400); RBC Distribution Width 19.9 % (11.5-14.5); Red Blood Cell (RBC) Count 3.38 mill/uL (4.70-6.10); White Blood Cell (WBC) Count 7.4 thou/uL (4.8-10.8)
[2019-02-08 05:12] LABS: Anion Gap 16 mmol/L (10-20); BUN (Urea Nitrogen) 35 mg/dL (8.4-25.7); Calc. Creatinine Clearance 55 mL/min (70-130); Carbon Dioxide 26 mmol/L (22-29); Chloride 94 mmol/L (98-107); Estimated GFR-MDRD 22; Glucose 248 mg/dL (70-105); Potassium 4.1 mmol/L (3.5-5.1); Sodium 132 mmol/L (136-145)
[2019-02-08] MEDS: Levothyroxine Sodium 88 MCG TAB PO SCH (05:37)
[2019-02-08] MEDS: HumaLOG 300 UNITS/3 ML VIAL SC PRN ×3 (05:37→17:17)
--- NOTE | 2019-02-08 08:11 | PRG ---
DATE OF SERVICE: 02/08/2019 35 minutes of critical care time. SUBJECTIVE: The patient remains on BiPAP in the CCU. He was able to come off BiPAP for an hour or two last night. His Levophed has been weaned down to about 6 mcg/minute. OBJECTIVE: VITAL SIGNS: Currently, his temperature is 97.8, pulse 93, blood pressure 150/77. A 24-hour intake 1488, output 0, he had 1400 out by dialysis yesterday. HEENT: Unremarkable. NECK: No JVD. LUNGS: Poor air movement. CARDIAC: S1 and S2, regular. ABDOMEN: Morbidly obese, soft. EXTREMITIES: Edematous throughout. LABORATORY DATA: Sodium 132, potassium 4.1, chloride 94, CO2 of 23, BUN 35, creatinine , glucose 248. White blood count 7.4, hematocrit 31.3, and platelet count 306. ASSESSMENT: 1. Chronic hypoxic and hypercapnic respiratory failure secondary to obesity hypoventilation syndrome, obstructive sleep apnea, and chronic fluid overload. 2. Persistent hypotension, requiring Levophed. 3. Chronic renal failure. PLAN: 1. Attempt to wean Levophed off today. 2. Continue dialysis as needed. 3. Try high-flow oxygen when the patient is not using BiPAP. 4. Continue hydrocortisone for stress dose steroid coverage. 5. Prognosis remains extremely poor. We would encourage palliative care input on this patient. Job ID: [id number]
[2019-02-08] MEDS: Sevelamer Carbonate 800 MG TAB PO SCH ×3 (08:19→17:09)
[2019-02-08] MEDS: Sucralfate 1 GM TAB PO SCH ×4 (08:20→21:19)
[2019-02-08] MEDS: Midodrine HCl 5 MG TAB PO SCH ×3 (08:20→17:09)
[2019-02-08] MEDS: Lactinex Tablet PO SCH ×2 (08:33→21:12)
[2019-02-08] MEDS: Gabapentin 100 MG CAP PO SCH ×3 (08:33→21:13)
[2019-02-08] MEDS: Apixaban 5 MG TAB PO SCH ×2 (08:33→21:12)
[2019-02-08] MEDS: Clopidogrel Bisulfate 75 MG TAB PO SCH (08:33)
[2019-02-08] MEDS: Famotidine 20 MG TAB PO SCH (08:34)
[2019-02-08] MEDS: Nystatin 500,000 UNITS/5 ML UDCUP SSW SCH ×3 (08:34→21:19)
[2019-02-08] MEDS: Polyethylene Glycol 3350 17 GM Packet PO SCH ×2 (08:34→21:19)
[2019-02-08] MEDS: Docusate 100 MG CAP PO SCH ×2 (08:34→21:12)
[2019-02-08] MEDS: Clotrimazole 1 % Cream 30 GM TUBE TOP SCH ×2 (08:35→21:14)
[2019-02-08] MEDS: Nystatin Powder 15 GM BOT TOP PRN (08:46)
--- NOTE | 2019-02-08 09:37 | PRG ---
DATE OF SERVICE: 02/08/2019 SUBJECTIVE: Patient was seen and examined at bedside and overnight events noted. Patient denies any shortness of breath or chest pain or palpitation. No history of nausea or vomiting or diarrhea or fever or chills or cramps. OBJECTIVE: GENERAL: This is a morbidly obese male, in no acute distress. VITAL SIGNS: Temperature 97.8, heart rate 80, respiratory rate 20, and blood pressure 150/77. HEENT: Atraumatic, normocephalic. Oral mucosa is moist NECK: Supple. CARDIOVASCULAR: S1, S2 heard. Rate and rhythm regular. RESPIRATORY: Clear to auscultation. GASTROINTESTINAL: Abdomen is soft. MUSCULOSKELETAL: No tenderness. No edema. DERMATOLOGIC: No skin rash. NEUROLOGIC: Alert and awake and oriented X3. No focal neurologic deficits. Moving all the extremities. PSYCHIATRIC: Mood and affect normal. LABORATORY DATA: Potassium 4.0, BUN is 35, and creatinine is 2.9. ASSESSMENT AND PLAN: 1. End-stage renal disease. Continue on dialysis as tolerated. 2. Hypertension . 3. Edema, remove fluid with dialysis as tolerated. 4. Anemia. 5. Morbid obesity. PROGNOSIS: Guarded. Continue dialysis as tolerated. Job ID: [id number]
--- NOTE | 2019-02-08 15:05 | PDOC.PN ---
- Subjective Encounter Start Date: 02/08/19 Encounter Start Time: 10:00 Subjective: pt up in bed on bipap, spoke with friend and pt about hospice - Objective Resuscitation Status - Order Detail: 02/06/19 19:12 Resuscitation Status Routine Resuscitation Status: FULL: Full Resuscitation Discussed with: Patient Vital Signs & Weight: Vital Signs (12 hours) Temp Pulse Resp Pulse Ox 02/08/19 14:32 102 H 02/08/19 14:31 98 19 92 L 02/08/19 14:24 93 L 02/08/19 12:00 98.2 F 02/08/19 11:04 95 02/08/19 11:03 98 20 95 02/08/19 09:04 94 L 02/08/19 07:32 91 L 02/08/19 07:26 80 92 L 02/08/19 07:25 72 19 92 L 02/08/19 04:00 97.8 F Weight Weight 325 lb Most Recent Monitor Data Heart Rate from ECG 95 NIBP 155/101 NIBP BP-Mean 119 Respiration from ECG 21 SpO2 91 I&O: 02/07/19 02/08/19 02/09/19 06:59 06:59 06:59 Intake Total 593.5 1488.2 420 Output Total 0 0 Balance 593.5 1488.2 420 Result Diagrams: 02/08/19 04:25 02/08/19 04:25 Additional Labs: Accuchecks 02/07/19 02/07/19 21:19 17:40 POC Glucose 131 H 180 H Phys Exam - Physical Examination Neck: no nodes, no JVD, supple, full ROM mild rhonchi all over Cardiovascular: RRR, no significant murmur, no rub, gallop, irregular Gastrointestinal: soft, non-tender, no distention, positive bowel sounds Musculoskeletal: edema present Dx/Plan (1) Acute on chronic respiratory failure with hypoxia and hypercapnia Code(s): J96.21 - ACUTE AND CHRONIC RESPIRATORY FAILURE WITH HYPOXIA; J96.22 - ACUTE AND CHRONIC RESPIRATORY FAILURE WITH HYPERCAPNIA Status: Acute Comment : Bipap as needed (2) Hypotension Status: Acute Comment: likely multifactoral, levophed dependent (3) CAD (coronary artery disease) Code(s): I25.10 - ATHSCL HEART DISEASE OF [place] CORONARY ARTERY W/O ANG PCTRS Status: Chronic Qualifiers: Coronary Disease-Associated Artery/Lesion type: [place] artery [place] vs. transplanted heart: [place] heart Associated angina: without angina Qualified Code(s): I25.10 - Atherosclerotic heart disease of [place] coronary artery without angina pectoris Comment: NSTEMI in 12/2018 - Plan pt currently off levophed. His bp is very labile -: spoke with pt and friend, will get hospice to talk with pt -: pt is concern about not getting dialysis. * . Review of Systems - Review of Systems Respiratory: negative: Cough, Dry, Shortness of Breath, Hemoptysis, SOB with Excertion, Pleuritic Pain, Sputum, Wheezing Cardiovascular: negative: chest pain, palpitations, orthopnea, paroxysmal nocturnal dyspnea, edema, light headedness, other Gastrointestinal: negative: Nausea, Vomiting, Abdominal Pain, Diarrhea, Constipation, Melena, Hematochezia, Other - Medications/Allergies Allergies/Adverse Reactions: Allergies Allergy/AdvReac Type Severity Reaction Status Date / Time quinapril HCl [From Accupril] Allergy Verified 11/05/18 03:21 Medications: Current Medications Acetaminophen (Tylenol) 650 mg PO Q6H PRN PRN Reason: Mild Pain (1-3) Last Admin: 02/08/19 04:18 Dose: 650 mg Acidophilus (Floranex) 1 tab PO BID [facility] Last Admin: 02/08/19 08:33 Dose: 1 tab Albuterol/Ipratropium (Duoneb) 3 ml NEB QID-RT [facility] Last Admin: 02/08/19 14:31 Dose: 3 ml Apixaban (Eliquis) 5 mg PO BID [facility] Last Admin: 02/08/19 08:33 Dose: 5 mg Atorvastatin Calcium (Lipitor) 20 mg PO HS [facility] Last Admin: 02/07/19 20:23 Dose: 20 mg Bisacodyl (Dulcolax) 10 mg PO DAILYPRN PRN PRN Reason: Constipation Cholecalciferol (Vitamin D3) 4,000 units PO DAILY [facility] Last Admin: 02/08/19 08:33 Dose: 4,000 units Clopidogrel Bisulfate (Plavix) 75 mg PO DAILY [facility] Last Admin: 02/08/19 08:33 Dose: 75 mg Clotrimazole (Lotrimin 1% Cream) 0 gm TOP BID [facility] Last Admin: 02/08/19 08:35 Dose: 1 applic Dextrose/Water (Dextrose 50%) 25 gm SLOW IVP PRN PRN PRN Reason: Hypoglycemia Docusate Sodium (Colace) 100 mg PO BID [facility] Last Admin: 02/08/19 08:34 Dose: Not Given Famotidine (Pepcid) 20 mg PO DAILY [facility] Last Admin: 02/08/19 08:34 Dose: 20 mg Gabapentin (Neurontin) 100 mg PO TID [facility] Last Admin: 02/08/19 08:33 Dose: 100 mg Glucagon (Glucagon) 1 mg IM PRN PRN PRN Reason: Hypoglycemia Guaifenesin/Dextromethorphan (Robitussin Dm) 15 ml PO Q4H PRN PRN Reason: Cough Hydrocortisone Sodium Succinate (Solu-Cortef) 50 mg IVP Q6HR [facility] Last Admin: 02/08/19 12:10 Dose: 50 mg Norepinephrine Bitartrate (Levophed) 250 mls @ 0 mls/hr IVPB INF PRN; Protocol PRN Reason: Blood Pressure Dextrose/Water (D5w) 1,000 mls @ 0 mls/hr IV .Q0M PRN PRN Reason: Hypoglycemia Norepinephrine Bitartrate 32 (mg/ Dextrose/Water) 250 mls @ 0 mls/hr IVPB INF PRN; Protocol PRN Reason: TO MAINTAIN MAP > 65 Insulin Human Lispro (Humalog) 0 units SC .MILD SLIDING SCALE PRN PRN Reason: Mild Correctional Scale Last Admin: 02/08/19 09:45 Dose: 3 units Insulin Human Lispro (Humalog) 0 units SC .BEDTIME SLIDING SC PRN PRN Reason: Bedtime Correctional Scale Ipratropium [place] (Atrovent) 2.5 ml NEB Q12H PRN PRN Reason: SOB &/or Wheezing Levothyroxine Sodium (Synthroid) 88 mcg PO 0630 [facility] Last Admin: 02/08/19 05:37 Dose: 88 mcg Midodrine (Proamatine) 15 mg PO TID-[facility] Last Admin: 02/08/19 12:11 Dose: 15 mg Nystatin (Mycostatin Powder) 0 gm TOP BIDPRN PRN PRN Reason: SKIN RASH Last Admin: 02/08/19 08:46 Dose: 1 applic Nystatin (Mycostatin) 500,000 units SSW TID [facility] Last Admin: 02/08/19 08:34 Dose: 500,000 units Ondansetron HCl (Zofran Odt) 4 mg PO Q6H PRN PRN Reason: Nausea/Vomiting Ondansetron HCl (Zofran) 4 mg IVP Q6H PRN PRN Reason: Nausea/Vomiting (Ropinirole Hcl [ Ropinirole Er] 4 Mg) Tab 1 each PO HS [facility] Polyethylene Glycol (Miralax) 17 gm PO BID [facility] Last Admin: 02/08/19 08:34 Dose: Not Given Sertraline HCl (Zoloft) 25 mg PO DAILY [facility] Last Admin: 02/08/19 08:34 Dose: 25 mg Sevelamer Carbonate (Renvela) 2,400 mg PO TID-WM [facility] Last Admin: 02/08/19 12:12 Dose: Not Given Sucralfate (Carafate) 1 gm PO ACHS [facility] Last Admin: 02/08/19 11:45 Dose: 1 gm
[2019-02-08] MEDS: Atorvastatin Calcium 20 MG TAB PO SCH (21:12)
[2019-02-09] MEDS: Hydrocortisone Sod Succ/PF 100 mg/2 ml Vial IVP SCH ×4 (00:52→18:30)
[2019-02-09 05:38] LABS: #Monocytes 0.5 thou/uL (0.11-0.59); #Neutrophils 4.6 thou/uL (1.40-6.50); %Basophils 0.1 % (0.0-1.0); %Lymphocytes 16.4 % (21.0-51.0); %Monocytes 7.5 % (0.0-10.0); %Neutrophils 75.9 % (42.0-75.0); Hemoglobin 8.4 g/dL (14.0-18.0); Mean Corpuscular HGB CONC 29.2 g/dL (32.0-36.0); Mean Corpuscular Hemoglobin 27.1 pg (27.0-31.0); Mean Corpuscular Volume 92.8 fL (78.0-98.0); Mean Platelet Volume 8.3 fL (7.4-10.4); Platelet Count 262 thou/uL (130-400); RBC Distribution Width 19.2 % (11.5-14.5); Red Blood Cell (RBC) Count 3.08 mill/uL (4.70-6.10); White Blood Cell (WBC) Count 6.1 thou/uL (4.8-10.8)
[2019-02-09 05:46] LABS: Anion Gap 14 mmol/L (10-20); BUN (Urea Nitrogen) 45 mg/dL (8.4-25.7); Calc. Creatinine Clearance 48 mL/min (70-130); Calcium 10.1 mg/dL (7.8-10.44); Carbon Dioxide 28 mmol/L (22-29); Chloride 94 mmol/L (98-107); Estimated GFR-MDRD 19; Glucose 161 mg/dL (70-105); Potassium 3.8 mmol/L (3.5-5.1); Sodium 132 mmol/L (136-145)
[2019-02-09] MEDS: Levothyroxine Sodium 88 MCG TAB PO SCH (06:35)
[2019-02-09] MEDS: Sevelamer Carbonate 800 MG TAB PO SCH ×3 (08:12→16:57)
[2019-02-09] MEDS: Midodrine HCl 5 MG TAB PO SCH ×3 (08:30→16:57)
[2019-02-09] MEDS: Nystatin 500,000 UNITS/5 ML UDCUP SSW SCH ×3 (09:09→20:05)
[2019-02-09] MEDS: Apixaban 5 MG TAB PO SCH ×2 (09:10→21:33)
[2019-02-09] MEDS: Clopidogrel Bisulfate 75 MG TAB PO SCH (09:10)
[2019-02-09] MEDS: Famotidine 20 MG TAB PO SCH (09:10)
[2019-02-09] MEDS: Lactinex Tablet PO SCH ×2 (09:10→21:33)
[2019-02-09] MEDS: Gabapentin 100 MG CAP PO SCH ×3 (09:10→21:32)
[2019-02-09] MEDS: Docusate 100 MG CAP PO SCH ×2 (09:11→21:32)
[2019-02-09] MEDS: Sucralfate 1 GM TAB PO SCH ×4 (09:11→21:40)
[2019-02-09] MEDS: Polyethylene Glycol 3350 17 GM Packet PO SCH ×2 (09:12→21:36)
[2019-02-09] MEDS: Clotrimazole 1 % Cream 30 GM TUBE TOP SCH ×2 (09:14→21:33)
[2019-02-09] MEDS: EPOETIN ALFA-EPBX (ESRD) 10,000 UNIT/ML VIAL IVP SCH (09:37)
[2019-02-09] MEDS ORDERED: Albumin 25% 25 GM/100 ML BOT IVPB SCH (09:45)
--- NOTE | 2019-02-09 10:22 | PRG ---
DATE OF SERVICE: 02/09/2019 SUBJECTIVE: Patient was seen and examined at bedside and overnight events noted. Patient denies any shortness of breath or chest pain or palpitation. No history of nausea or vomiting or diarrhea or fever or chills or cramps. OBJECTIVE: GENERAL: This is a morbidly obese male, in no apparent distress. VITAL SIGNS: Temperature 97.3. Heart rate 92. Respiratory rate 18. Blood pressure 129/77. HEENT: Atraumatic, normocephalic. Oral mucosa is moist NECK: Supple. CARDIOVASCULAR: S1, S2 heard. Rate and rhythm regular. RESPIRATORY: Clear to auscultation. GASTROINTESTINAL: Abdomen is soft. MUSCULOSKELETAL: No tenderness. No edema. DERMATOLOGIC: No skin rash. NEUROLOGIC: Alert and awake and oriented X3. No focal neurologic deficits. Moving all the extremities. PSYCHIATRIC: Mood and affect normal. LABORATORY DATA: Potassium is 3.8, BUN is 45, creatinine is 3.3. ASSESSMENT AND PLAN: 1. End-stage renal disease. Continue dialysis as tolerated. 2. Hypertension. 3. Edema. 4. Anemia. 5. Morbid obesity. Plan to continue dialysis as tolerated. Job ID: [id number]
--- NOTE | 2019-02-09 10:58 | PRG ---
DATE OF SERVICE: 02/09/2019 SUBJECTIVE: The patient remains in the CCU alternating between BiPAP and high-flow nasal cannula. OBJECTIVE: VITAL SIGNS: Temperature 97.3, pulse 90, blood pressure 105/67, O2 saturation 95%. A 24-hour intake 1218, output none, but he is currently getting hemodialysis. HEENT: Pupils react. Sclerae anicteric. Oropharynx clear. NECK: No JVD. LUNGS: Coarse breath sounds. CARDIAC: S1, S2. Regular. ABDOMEN: Soft, obese. EXTREMITIES: Edematous. LABORATORY DATA: White blood cell count 6.1, hematocrit 28.6, and platelet count 262. Sodium 132, potassium 3.8, chloride 94, CO2 of 28, BUN 45, creatinine 3.4, and glucose 161. ASSESSMENT: 1. Chronic hypoxic and hypercapnic respiratory failure, requiring mechanical ventilation. 2. Chronic renal failure, requiring hemodialysis. 3. Persistent hypotension, requiring intermittent Levophed. PLAN: He is now more minimal to Hospice discussion, that is currently taking place. He has some questions whether or not he would be a candidate for dialysis while at Hospice. We are continuing to stress dose steroids and the midodrine for his hypotension. We will see how he does today during dialysis off the Levophed. Job ID: [id number]
[2019-02-09] MEDS: HumaLOG 300 UNITS/3 ML VIAL SC PRN (18:55)
[2019-02-09] MEDS: Nystatin Powder 15 GM BOT TOP PRN (21:33)
[2019-02-09] MEDS: Atorvastatin Calcium 20 MG TAB PO SCH (21:33)
[2019-02-09] MEDS: rOPINIRole HCl 2 MG TAB PO SCH (21:40)
[2019-02-10] MEDS: Hydrocortisone Sod Succ/PF 100 mg/2 ml Vial IVP SCH ×4 (00:54→18:29)
[2019-02-10 05:58] LABS: #Basophils 0.1 thou/uL (0.0-0.2); #Monocytes 0.4 thou/uL (0.11-0.59); #Neutrophils 4.2 thou/uL (1.40-6.50); %Basophils 1.2 % (0.0-1.0); %Eosinophils 0.3 % (0.0-10.0); %Lymphocytes 17.5 % (21.0-51.0); %Monocytes 7.7 % (0.0-10.0); %Neutrophils 73.3 % (42.0-75.0); Mean Corpuscular HGB CONC 28.9 g/dL (32.0-36.0); Mean Corpuscular Hemoglobin 26.4 pg (27.0-31.0); Mean Corpuscular Volume 91.3 fL (78.0-98.0); Mean Platelet Volume 8.3 fL (7.4-10.4); Platelet Count 283 thou/uL (130-400); RBC Distribution Width 18.8 % (11.5-14.5); Red Blood Cell (RBC) Count 3.41 mill/uL (4.70-6.10); White Blood Cell (WBC) Count 5.7 thou/uL (4.8-10.8)
[2019-02-10] MEDS: Levothyroxine Sodium 88 MCG TAB PO SCH (06:08)
[2019-02-10 06:10] LABS: Anion Gap 15 mmol/L (10-20); BUN (Urea Nitrogen) 36 mg/dL (8.4-25.7); Calc. Creatinine Clearance 59 mL/min (70-130); Carbon Dioxide 29 mmol/L (22-29); Chloride 93 mmol/L (98-107); Estimated GFR-MDRD 22; Glucose 211 mg/dL (70-105); Potassium 3.6 mmol/L (3.5-5.1); Sodium 133 mmol/L (136-145)
[2019-02-10] MEDS: HumaLOG 300 UNITS/3 ML VIAL SC PRN ×2 (06:11→12:03)
--- NOTE | 2019-02-10 09:06 | PRG ---
DATE OF SERVICE: 02/10/2019 SUBJECTIVE: He is more awake, alert, still slightly confused. OBJECTIVE: VITAL SIGNS: On exam, temperature 98.8, pulse 91, blood pressure 138/85, O2 saturation running in the 90s on high-flow nasal cannula. Intake 1380, output 3200. HEENT: Unremarkable. NECK: No JVD. LUNGS: Poor air movement. CARDIAC: S1, S2. Regular. ABDOMEN: Soft, nontender. EXTREMITIES: Edematous. LABORATORY DATA: Sodium 133, potassium 3.6, chloride 93, CO2 29, BUN 36, creatinine 2.8, glucose 211. White blood cell count 5.7, hematocrit 31.2, and platelet count 283. ASSESSMENT: 1. Acute hypoxic respiratory failure. 2. Severe underlying chronic obstructive pulmonary disease. 3. Chronic renal failure requiring hemodialysis. 4. Hypotension, which has resolved and he is no longer needing Levophed. PLAN: Keep in the ICU for the time being to continue high-flow oxygen. Palliative Care is meeting with the patient to discuss long-term issues. It does appear that he is getting better with fluid removal with dialysis. I have reviewed his medications and do not see any changes that need to be made at this time. Job ID: [id number]
[2019-02-10] MEDS: Sevelamer Carbonate 800 MG TAB PO SCH ×3 (09:16→18:28)
[2019-02-10] MEDS: Famotidine 20 MG TAB PO SCH (09:16)
[2019-02-10] MEDS: Sucralfate 1 GM TAB PO SCH ×4 (09:16→20:52)
[2019-02-10] MEDS: Docusate 100 MG CAP PO SCH ×2 (09:16→20:51)
[2019-02-10] MEDS: Clopidogrel Bisulfate 75 MG TAB PO SCH (09:16)
[2019-02-10] MEDS: Gabapentin 100 MG CAP PO SCH ×3 (09:16→20:51)
[2019-02-10] MEDS: Apixaban 5 MG TAB PO SCH ×2 (09:17→20:51)
[2019-02-10] MEDS: Midodrine HCl 5 MG TAB PO SCH ×3 (09:17→18:30)
--- NOTE | 2019-02-10 09:17 | PDOC.PN ---
- Subjective Encounter Start Date: 02/09/19 Encounter Start Time: 14:55 Subjective: pt up in bed feels well - Objective Resuscitation Status - Order Detail: 02/06/19 19:12 Resuscitation Status Routine Resuscitation Status: FULL: Full Resuscitation Discussed with: Patient Vital Signs & Weight: Vital Signs (12 hours) Temp Pulse Resp Pulse Ox 02/10/19 08:30 94 L 02/10/19 07:52 98 02/10/19 07:50 99 33 H 02/10/19 04:00 98.8 F 02/10/19 02:12 74 02/10/19 00:00 98.5 F 02/09/19 22:15 105 H Weight Weight 340 lb 6.299 oz Most Recent Monitor Data Heart Rate from ECG 91 NIBP 138/95 NIBP BP-Mean 109 Respiration from ECG 16 SpO2 93 I&O: 02/09/19 02/10/19 02/11/19 06:59 06:59 06:59 Intake Total 1228 1380 Output Total 0 0 Balance 1228 1380 Result Diagrams: 02/10/19 05:20 02/10/19 05:20 Additional Labs: Accuchecks 02/09/19 02/09/19 11:53 05:02 POC Glucose 154 H 160 H Phys Exam - Physical Examination Neck: no nodes, no JVD, supple, full ROM Respiratory: no wheezing, no rales, no rhonchi, wheezing present, clear to auscultation bilateral Cardiovascular: RRR, no significant murmur, no rub, gallop, irregular Gastrointestinal: soft, non-tender, no distention, positive bowel sounds Dx/Plan (1) Acute on chronic respiratory failure with hypoxia and hypercapnia Code(s): J96.21 - ACUTE AND CHRONIC RESPIRATORY FAILURE WITH HYPOXIA; J96.22 - ACUTE AND CHRONIC RESPIRATORY FAILURE WITH HYPERCAPNIA Status: Acute Comment : Bipap as needed (2) Hypotension Status: Acute Comment: likely multifactoral, levophed dependent (3) CAD (coronary artery disease) Code(s): I25.10 - ATHSCL HEART DISEASE OF [place] CORONARY ARTERY W/O ANG PCTRS Status: Chronic Qualifiers: Coronary Disease-Associated Artery/Lesion type: [place] artery [place] vs. transplanted heart: [place] heart Associated angina: without angina Qualified Code(s): I25.10 - Atherosclerotic heart disease of [place] coronary artery without angina pectoris Comment: NSTEMI in 12/2018 - Plan pt has been off levophed for 24hr, tolerated dialysis -: hospice did come talk with pt but pt does not want to stop -: dialysis. He is thinking about trach. -: he will need LTAC * . Review of Systems - Review of Systems Respiratory: negative: Cough, Dry, Shortness of Breath, Hemoptysis, SOB with Excertion, Pleuritic Pain, Sputum, Wheezing Cardiovascular: negative: chest pain, palpitations, orthopnea, paroxysmal nocturnal dyspnea, edema, light headedness, other Gastrointestinal: negative: Nausea, Vomiting, Abdominal Pain, Diarrhea, Constipation, Melena, Hematochezia, Other - Medications/Allergies Allergies/Adverse Reactions: Allergies Allergy/AdvReac Type Severity Reaction Status Date / Time quinapril HCl [From Accupril] Allergy Verified 11/05/18 03:21 Medications: Current Medications Acetaminophen (Tylenol) 650 mg PO Q6H PRN PRN Reason: Mild Pain (1-3) Last Admin: 02/08/19 04:18 Dose: 650 mg Acidophilus (Floranex) 1 tab PO BID [facility] Last Admin: 02/09/19 21:33 Dose: 1 tab Albuterol/Ipratropium (Duoneb) 3 ml NEB QID-RT [facility] Last Admin: 02/10/19 07:50 Dose: 3 ml Apixaban (Eliquis) 5 mg PO BID [facility] Last Admin: 02/09/19 21:33 Dose: 5 mg Atorvastatin Calcium (Lipitor) 20 mg PO HS [facility] Last Admin: 02/09/19 21:33 Dose: 20 mg Bisacodyl (Dulcolax) 10 mg PO DAILYPRN PRN PRN Reason: Constipation Cholecalciferol (Vitamin D3) 4,000 units PO DAILY [facility] Last Admin: 02/09/19 09:09 Dose: 4,000 units Clopidogrel Bisulfate (Plavix) 75 mg PO DAILY [facility] Last Admin: 02/09/19 09:10 Dose: 75 mg Clotrimazole (Lotrimin 1% Cream) 0 gm TOP BID [facility] Last Admin: 02/09/19 21:33 Dose: 1 applic Dextrose/Water (Dextrose 50%) 25 gm SLOW IVP PRN PRN PRN Reason: Hypoglycemia Docusate Sodium (Colace) 100 mg PO BID [facility] Last Admin: 02/09/19 21:32 Dose: 100 mg Famotidine (Pepcid) 20 mg PO DAILY [facility] Last Admin: 02/09/19 09:10 Dose: 20 mg Gabapentin (Neurontin) 100 mg PO TID [facility] Last Admin: 02/09/19 21:32 Dose: 100 mg Glucagon (Glucagon) 1 mg IM PRN PRN PRN Reason: Hypoglycemia Guaifenesin/Dextromethorphan (Robitussin Dm) 15 ml PO Q4H PRN PRN Reason: Cough Hydrocortisone Sodium Succinate (Solu-Cortef) 50 mg IVP Q6HR [facility] Last Admin: 02/10/19 06:09 Dose: 50 mg Norepinephrine Bitartrate (Levophed) 250 mls @ 0 mls/hr IVPB INF PRN; Protocol PRN Reason: Blood Pressure Dextrose/Water (D5w) 1,000 mls @ 0 mls/hr IV .Q0M PRN PRN Reason: Hypoglycemia Norepinephrine Bitartrate 32 (mg/ Dextrose/Water) 250 mls @ 0 mls/hr IVPB INF PRN; Protocol PRN Reason: TO MAINTAIN MAP > 65 Insulin Human Lispro (Humalog) 0 units SC .MILD SLIDING SCALE PRN PRN Reason: Mild Correctional Scale Last Admin: 02/10/19 06:11 Dose: 2 units Insulin Human Lispro (Humalog) 0 units SC .BEDTIME SLIDING SC PRN PRN Reason: Bedtime [place]al Scale Ipratropium [place] (Atrovent) 2.5 ml NEB Q12H PRN PRN Reason: SOB &/or Wheezing Levothyroxine Sodium (Synthroid) 88 mcg PO 0630 [facility] Last Admin: 02/10/19 06:08 Dose: 88 mcg Midodrine (Proamatine) 15 mg PO TID[facility] Last Admin: 02/09/19 16:57 Dose: 15 mg Nystatin (Mycostatin Powder) 0 gm TOP BIDPRN PRN PRN Reason: SKIN RASH Last Admin: 02/09/19 21:33 Dose: 1 applic Nystatin (Mycostatin) 500,000 units SSW TID [facility] Last Admin: 02/09/19 20:05 Dose: 500,000 units Ondansetron HCl (Zofran Odt) 4 mg PO Q6H PRN PRN Reason: Nausea/Vomiting Ondansetron HCl (Zofran) 4 mg IVP Q6H PRN PRN Reason: Nausea/Vomiting Polyethylene Glycol (Miralax) 17 gm PO BID [facility] Last Admin: 02/09/19 21:36 Dose: Not Given Ropinirole HCl (Requip) 4 mg PO HS [facility] Last Admin: 02/09/19 21:40 Dose: 4 mg Sertraline HCl (Zoloft) 25 mg PO DAILY [facility] Last Admin: 02/09/19 09:10 Dose: 25 mg Sevelamer Carbonate (Renvela) 2,400 mg PO TID-WM [facility] Last Admin: 02/09/19 16:57 Dose: 2,400 mg Sodium Chloride (Flush - Normal Saline) 10 ml IVF PRN PRN PRN Reason: Saline Flush Sucralfate (Carafate) 1 gm PO ACHS [facility] Last Admin: 02/09/19 21:40 Dose: 1 gm
[2019-02-10] MEDS: Polyethylene Glycol 3350 17 GM Packet PO SCH ×2 (09:22→21:10)
[2019-02-10] MEDS: Nystatin 500,000 UNITS/5 ML UDCUP SSW SCH ×3 (09:28→18:28)
[2019-02-10] MEDS: Lactinex Tablet PO SCH ×2 (09:38→20:51)
[2019-02-10] MEDS: Clotrimazole 1 % Cream 30 GM TUBE TOP SCH ×2 (09:39→20:51)
--- NOTE | 2019-02-10 10:44 | PRG ---
DATE OF SERVICE: 02/10/2019 SUBJECTIVE: Patient was seen and examined at bedside and overnight events noted. Patient denies any shortness of breath or chest pain or palpitation. No history of nausea or vomiting or diarrhea or fever or chills or cramps. OBJECTIVE: GENERAL: This is a morbidly obese male, in no apparent distress. VITAL SIGNS: Temperature 97.7, pulse 99, respiratory rate 22, blood pressure 129/89. HEENT: Atraumatic, normocephalic. Oral mucosa is moist NECK: Supple. CARDIOVASCULAR: S1, S2 heard. Rate and rhythm regular. RESPIRATORY: Clear to auscultation. GASTROINTESTINAL: Abdomen is soft. MUSCULOSKELETAL: No tenderness. No edema. DERMATOLOGIC: No skin rash. NEUROLOGIC: Alert and awake and oriented X3. No focal neurologic deficits. Moving all the extremities. PSYCHIATRIC: Mood and affect normal. LABORATORY DATA: Potassium 3.6, BUN is 26, creatinine is 2.8. ASSESSMENT AND PLAN: 1. End-stage renal disease, continue dialysis as tolerated. 2. Hypotension - pressors as needed. 3. Edema, remove fluid as tolerated. 4. Acute hypoxic respiratory failure. 5. Anemia. 6. Morbid obesity. The patient remains hypotensive, even though off Levophed and stable. Difficult to have ultrafiltration with dialysis and we will have dialysis as tolerated. Might need dialysis tomorrow. Limit fluid intake. Job ID: [id number] [facility]
--- NOTE | 2019-02-10 13:46 | PDOC.PN ---
- Subjective Encounter Start Date: 02/10/19 Encounter Start Time: 13:44 Patient seen and examined, no new issues, all questions answered. - Objective Resuscitation Status - Order Detail: 02/06/19 19:12 Resuscitation Status Routine Resuscitation Status: FULL: Full Resuscitation Discussed with: Patient Vital Signs & Weight: Vital Signs (12 hours) Temp Pulse Resp Pulse Ox 02/10/19 11:31 96 02/10/19 11:28 97 22 H 02/10/19 11:00 98 F 02/10/19 08:30 94 L 02/10/19 08:00 95 02/10/19 07:52 98 02/10/19 07:50 99 33 H 02/10/19 07:00 97.7 F 02/10/19 04:00 98.8 F 02/10/19 02:12 74 Weight Weight 340 lb 6.299 oz Most Recent Monitor Data Heart Rate from ECG 104 NIBP 134/98 NIBP BP-Mean 110 Respiration from ECG 29 SpO2 95 I&O: 02/09/19 02/10/19 02/11/19 06:59 06:59 06:59 Intake Total 1228 1380 665 Output Total 0 0 0 Balance 1228 1380 665 Result Diagrams: 02/10/19 05:20 02/10/19 05:20 Additional Labs: Accuchecks 02/09/19 11:53 POC Glucose 154 H Phys Exam - Physical Examination Constitutional: NAD morbidly obese HEENT: PERRLA, moist MMs, sclera anicteric Neck: no nodes, no JVD, supple Respiratory: no wheezing, no rales, no rhonchi Cardiovascular: RRR, no significant murmur, no rub Gastrointestinal: soft, non-tender, no distention Musculoskeletal: pulses present, edema present (1+) Dx/Plan (1) Anemia of renal disease Code(s): D63.1 - ANEMIA IN CHRONIC KIDNEY DISEASE Status: Chronic Comment: stable (2) CAD (coronary artery disease) Code(s): I25.10 - ATHSCL HEART DISEASE OF [place] CORONARY ARTERY W/O ANG PCTRS Status: Chronic Qualifiers: Coronary Disease-Associated Artery/Lesion type: [place] artery [place] vs. transplanted heart: [place] heart Associated angina: without angina Qualified Code(s): I25.10 - Atherosclerotic heart disease of [place] coronary artery without angina pectoris Comment: NSTEMI in 12/2018 (3) COPD (chronic obstructive pulmonary disease) Status: Chronic (4) DM2 (diabetes mellitus, type 2) Status: Chronic Qualifiers: Diabetes mellitus complication detail: with chronic kidney disease Chronic kidney disease stage: on chronic dialysis Comment: (5) ESRD (end stage renal disease) on dialysis Code(s): N18.6 - END STAGE RENAL DISEASE; Z99.2 - DEPENDENCE ON RENAL DIALYSIS Status: Chronic (6) Hypertension Code(s): I10 - ESSENTIAL (PRIMARY) HYPERTENSION Status: Chronic Qualifiers: Hypertension type: essential hypertension Qualified Code(s): I10 - Essential (primary) hypertension (7) Lymphedema Code(s): I89.0 - LYMPHEDEMA, NOT ELSEWHERE CLASSIFIED Status: Chronic (8) Morbid obesity due to excess calories Code(s): E66.01 - MORBID (SEVERE) OBESITY DUE TO EXCESS CALORIES Status: Chronic (9) Obesity hypoventilation syndrome Code(s): E66.2 - MORBID (SEVERE) OBESITY WITH ALVEOLAR HYPOVENTILATION Status : Chronic - Plan * The patient does not want hospice care * states he would like to continue with the current plan of care, is working with the palliative care team to arrange for a facility that he could go to * patient's condition otherwise is clinically stable but he does require pressors during HD from time to time * no other changes in plan of care * case and plan d/w patient at length, he understood and agreed with this plan.
[2019-02-10] MEDS: Atorvastatin Calcium 20 MG TAB PO SCH (20:51)
[2019-02-10] MEDS: rOPINIRole HCl 2 MG TAB PO SCH (20:52)
[2019-02-11] MEDS: Hydrocortisone Sod Succ/PF 100 mg/2 ml Vial IVP SCH ×5 (00:55→20:30)
[2019-02-11 05:11] LABS: #Lymphocytes 1.1 thou/uL (1.20-3.40); #Monocytes 0.4 thou/uL (0.11-0.59); #Neutrophils 4.9 thou/uL (1.40-6.50); %Basophils 0.2 % (0.0-1.0); %Eosinophils 0.3 % (0.0-10.0); %Lymphocytes 17.6 % (21.0-51.0); %Monocytes 5.8 % (0.0-10.0); Hemoglobin 8.9 g/dL (14.0-18.0); Mean Corpuscular HGB CONC 30.1 g/dL (32.0-36.0); Mean Corpuscular Hemoglobin 27.5 pg (27.0-31.0); Mean Corpuscular Volume 91.6 fL (78.0-98.0); Mean Platelet Volume 8.4 fL (7.4-10.4); Platelet Count 282 thou/uL (130-400); Red Blood Cell (RBC) Count 3.25 mill/uL (4.70-6.10); White Blood Cell (WBC) Count 6.4 thou/uL (4.8-10.8)
[2019-02-11 05:26] LABS: Anion Gap 14 mmol/L (10-20); BUN (Urea Nitrogen) 46 mg/dL (8.4-25.7); Calc. Creatinine Clearance 54 mL/min (70-130); Calcium 9.9 mg/dL (7.8-10.44); Carbon Dioxide 26 mmol/L (22-29); Chloride 93 mmol/L (98-107); Estimated GFR-MDRD 20; Glucose 144 mg/dL (70-105); Sodium 129 mmol/L (136-145)
[2019-02-11] MEDS: Levothyroxine Sodium 88 MCG TAB PO SCH (05:57)
[2019-02-11] MEDS: Lactinex Tablet PO SCH ×2 (08:00→20:30)
[2019-02-11] MEDS: Famotidine 20 MG TAB PO SCH (08:00)
[2019-02-11] MEDS: Docusate 100 MG CAP PO SCH ×2 (08:00→20:30)
[2019-02-11] MEDS: Clopidogrel Bisulfate 75 MG TAB PO SCH (08:00)
[2019-02-11] MEDS: Gabapentin 100 MG CAP PO SCH ×3 (08:00→20:30)
[2019-02-11] MEDS: Apixaban 5 MG TAB PO SCH ×2 (08:00→20:30)
[2019-02-11] MEDS: Sevelamer Carbonate 800 MG TAB PO SCH ×3 (08:00→17:00)
[2019-02-11] MEDS: Clotrimazole 1 % Cream 30 GM TUBE TOP SCH ×2 (08:01→20:32)
[2019-02-11] MEDS: Midodrine HCl 5 MG TAB PO SCH ×3 (08:01→17:01)
[2019-02-11] MEDS: Polyethylene Glycol 3350 17 GM Packet PO SCH ×2 (08:02→20:30)
[2019-02-11] MEDS: Sucralfate 1 GM TAB PO SCH ×4 (08:03→20:31)
[2019-02-11] MEDS: Nystatin 500,000 UNITS/5 ML UDCUP SSW SCH ×3 (08:12→20:30)
--- NOTE | 2019-02-11 09:00 | PRG ---
DATE OF SERVICE: 02/11/2019 SUBJECTIVE: The patient remains on high-flow oxygen BiPAP at night. He says he feels better. OBJECTIVE: VITAL SIGNS: Temperature 99.1, pulse 78, blood pressure 97/59, O2 saturation 100%. A 24-hour intake 1105, output 0. HEENT: Unremarkable NECK: No JVD. LUNGS: Diminished breath sounds at bases. CARDIAC: S1 and S2, regular. ABDOMEN: Soft. EXTREMITIES: Decreased edema. LABORATORY DATA: White blood cell count 6.4, hematocrit 29.7, and platelet count 282. Sodium 129, potassium 4, chloride 93, CO2 of 26, BUN 46, creatinine 3.1, glucose 144. ASSESSMENT: 1. Acute on chronic hypoxic respiratory failure. 2. Severe underlying chronic obstructive pulmonary disease. 3. Chronic renal failure requiring hemodialysis. 4. Hypotension which seems to be improved, but definitely related to intravascular volume depletion from dialysis. PLAN: 1. Up in a chair as tolerated today. 2. Decrease hydrocortisone dose to every 12 hours. 3. Continue nebulization treatments. 4. Intermittent hemodialysis as determined by Nephrology Service. 5. If Medicare eligible, then I would consider him for LTAC placement. Job ID: [id number]
--- NOTE | 2019-02-11 11:05 | PDOC.PN ---
- Subjective Encounter Start Date: 02/11/19 Encounter Start Time: 11:04 Patient seen and examined, no new issues, no family at bedside. - Objective Resuscitation Status - Order Detail: 02/06/19 19:12 Resuscitation Status Routine Resuscitation Status: FULL: Full Resuscitation Discussed with: Patient Vital Signs & Weight: Vital Signs (12 hours) Temp Pulse Resp Pulse Ox 02/11/19 08:33 91 L 02/11/19 08:30 94 25 H 02/11/19 08:00 99.1 F 02/11/19 04:00 98.1 F 02/11/19 02:00 95 02/11/19 00:00 97.8 F Weight Weight 341 lb 4.409 oz Most Recent Monitor Data Heart Rate from ECG 92 NIBP 114/75 NIBP BP-Mean 88 Respiration from ECG 17 SpO2 98 I&O: 02/10/19 02/11/19 02/12/19 06:59 06:59 06:59 Intake Total 1380 1105 120 Output Total 0 10 0 Balance 1380 1095 120 Result Diagrams: 02/11/19 04:55 02/11/19 04:55 Additional Labs: Accuchecks 02/10/19 02/10/19 02/10/19 21:00 14:30 11:01 POC Glucose 158 H 147 H 256 H 02/10/19 02/09/19 05:40 21:17 POC Glucose 199 H 156 H Phys Exam - Physical Examination Constitutional: NAD morbidly obese HEENT: PERRLA Neck: no nodes, no JVD, supple Respiratory: no wheezing, no rales on high flow oxygen support Cardiovascular: RRR, no significant murmur, no rub Gastrointestinal: soft, non-tender, no distention, positive bowel sounds Musculoskeletal: pulses present, edema present Dx/Plan (1) Anemia of renal disease Code(s): D63.1 - ANEMIA IN CHRONIC KIDNEY DISEASE Status: Chronic Comment: stable (2) CAD (coronary artery disease) Code(s): I25.10 - ATHSCL HEART DISEASE OF [place] CORONARY ARTERY W/O ANG PCTRS Status: Chronic Qualifiers: Coronary Disease-Associated Artery/Lesion type: [place] artery [place] vs. transplanted heart: [place] heart Associated angina: without angina Qualified Code(s): I25.10 - Atherosclerotic heart disease of [place] coronary artery without angina pectoris Comment: NSTEMI in 12/2018 (3) COPD (chronic obstructive pulmonary disease) Status: Chronic (4) DM2 (diabetes mellitus, type 2) Status: Chronic Qualifiers: Diabetes mellitus complication detail: with chronic kidney disease Chronic kidney disease stage: on chronic dialysis Comment: (5) ESRD (end stage renal disease) on dialysis Code(s): N18.6 - END STAGE RENAL DISEASE; Z99.2 - DEPENDENCE ON RENAL DIALYSIS Status: Chronic (6) Hypertension Code(s): I10 - ESSENTIAL (PRIMARY) HYPERTENSION Status: Chronic Qualifiers: Hypertension type: essential hypertension Qualified Code(s): I10 - Essential (primary) hypertension (7) Lymphedema Code(s): I89.0 - LYMPHEDEMA, NOT ELSEWHERE CLASSIFIED Status: Chronic (8) Morbid obesity due to excess calories Code(s): E66.01 - MORBID (SEVERE) OBESITY DUE TO EXCESS CALORIES Status: Chronic (9) Obesity hypoventilation syndrome Code(s): E66.2 - MORBID (SEVERE) OBESITY WITH ALVEOLAR HYPOVENTILATION Status : Chronic - Plan * cont current plan of care * pending LTAC * labs in AM * DC to LTAC once arrangements made * case and plan d/w patient at length, he understood and agreed with this plan .
--- NOTE | 2019-02-11 11:43 | PRG ---
DATE OF SERVICE: 02/11/2019 SUBJECTIVE: Patient was seen and examined at bedside and overnight events noted. Patient denies any shortness of breath or chest pain or palpitation. No history of nausea or vomiting or diarrhea or fever or chills or cramps. OBJECTIVE: GENERAL: This is morbidly obese male, in no apparent distress. VITAL SIGNS: Temperature 99.1, pulse 94, respiratory rate 20, blood pressure 114/75. HEENT: Atraumatic, normocephalic. Oral mucosa is moist NECK: Supple. CARDIOVASCULAR: S1, S2 heard. Rate and rhythm regular. RESPIRATORY: Clear to auscultation. GASTROINTESTINAL: Abdomen is soft. MUSCULOSKELETAL: No tenderness. No edema. DERMATOLOGIC: No skin rash. NEUROLOGIC: Alert and awake and oriented X3. No focal neurologic deficits. Moving all the extremities. PSYCHIATRIC: Mood and affect normal. LABORATORY DATA: Potassium 4.0, BUN is 46, creatinine is 3.1. ASSESSMENT AND PLAN: 1. End-stage renal disease, continue dialysis as tolerated. 2. Hypotension. 3. Edema. 4. Anemia. 5. Morbid obesity. 6. Plan to continue on dialysis as tolerated. No dialysis today. We will plan for Tuesday, Tuesday, Tuesday as tolerated. Job ID: [id number]
[2019-02-11] MEDS: HumaLOG 300 UNITS/3 ML VIAL SC PRN ×2 (11:54→17:01)
[2019-02-11] MEDS: rOPINIRole HCl 2 MG TAB PO SCH (20:29)
[2019-02-11] MEDS: Atorvastatin Calcium 20 MG TAB PO SCH (20:30)
[2019-02-12 04:36] LABS: #Lymphocytes 1.3 thou/uL (1.20-3.40); #Monocytes 0.7 thou/uL (0.11-0.59); %Basophils 0.1 % (0.0-1.0); %Eosinophils 0.2 % (0.0-10.0); %Lymphocytes 16.7 % (21.0-51.0); %Monocytes 8.1 % (0.0-10.0); Hemoglobin 9.5 g/dL (14.0-18.0); Mean Corpuscular HGB CONC 29.1 g/dL (32.0-36.0); Mean Corpuscular Hemoglobin 26.6 pg (27.0-31.0); Mean Corpuscular Volume 91.5 fL (78.0-98.0); Mean Platelet Volume 8.4 fL (7.4-10.4); Platelet Count 342 thou/uL (130-400); RBC Distribution Width 19.1 % (11.5-14.5); Red Blood Cell (RBC) Count 3.57 mill/uL (4.70-6.10)
[2019-02-12 05:18] LABS: Anion Gap 16 mmol/L (10-20); BUN (Urea Nitrogen) 55 mg/dL (8.4-25.7); Calc. Creatinine Clearance 0 mL/min (70-130); Calcium 10.1 mg/dL (7.8-10.44); Carbon Dioxide 25 mmol/L (22-29); Chloride 92 mmol/L (98-107); Estimated GFR-MDRD 17; Glucose 157 mg/dL (70-105); Potassium 4.1 mmol/L (3.5-5.1); Sodium 129 mmol/L (136-145)
[2019-02-12] MEDS: Levothyroxine Sodium 88 MCG TAB PO SCH (06:05)
[2019-02-12] MEDS: Midodrine HCl 5 MG TAB PO SCH ×3 (07:59→17:22)
[2019-02-12] MEDS: Sevelamer Carbonate 800 MG TAB PO SCH ×3 (07:59→17:22)
[2019-02-12] MEDS: Sucralfate 1 GM TAB PO SCH ×4 (07:59→20:31)
--- NOTE | 2019-02-12 09:04 | PDOC.PN ---
- Subjective Encounter Start Date: 02/12/19 Encounter Start Time: 10:30 Subjective: Patient about the same. Off Levophed since last week. Still requiring -: Bipap frequently. No other complaints. - Objective Resuscitation Status - Order Detail: 02/06/19 19:12 Resuscitation Status Routine Resuscitation Status: FULL: Full Resuscitation Discussed with: Patient DAQUAN Reviewed: Yes Vital Signs & Weight: Vital Signs (12 hours) Temp Pulse Resp Pulse Ox 02/12/19 07:06 98 02/12/19 07:03 89 26 H 98 02/12/19 07:00 98.7 F 02/12/19 04:00 98.9 F 02/12/19 02:00 77 02/12/19 00:00 98.4 F 97 02/11/19 22:12 89 Weight Weight 5.439 oz Most Recent Monitor Data Heart Rate from ECG 93 NIBP 110/76 NIBP BP-Mean 87 Respiration from ECG 23 SpO2 95 I&O: 02/11/19 02/12/19 02/13/19 06:59 06:59 06:59 Intake Total 1105 960 300 Output Total 10 0 Balance 1095 960 300 Result Diagrams: 02/12/19 04:20 02/12/19 04:20 Phys Exam - Physical Examination Constitutional: NAD HEENT: moist MMs voice stronger this week Respiratory: no wheezing, no rales, no rhonchi Cardiovascular: RRR, no significant murmur Gastrointestinal: soft, positive bowel sounds obese Neurological: non-focal Psychiatric: normal affect, A&O x 3 Dx/Plan (1) Hypotension Status: Acute Comment: likely multifactoral, improved and off levophed (2) Dysphagia Code(s): R13.10 - DYSPHAGIA, UNSPECIFIED Status: Acute Comment: weak voice, working with speech therapy (3) Acute on chronic respiratory failure with hypoxia and hypercapnia Code(s): J96.21 - ACUTE AND CHRONIC RESPIRATORY FAILURE WITH HYPOXIA; J96.22 - ACUTE AND CHRONIC RESPIRATORY FAILURE WITH HYPERCAPNIA Status: Acute Comment : Bipap as needed (4) Anemia of renal disease Code(s): D63.1 - ANEMIA IN CHRONIC KIDNEY DISEASE Status: Chronic Comment: stable (5) CAD (coronary artery disease) Code(s): I25.10 - ATHSCL HEART DISEASE OF [place] CORONARY ARTERY W/O ANG PCTRS Status: Chronic Qualifiers: Coronary Disease-Associated Artery/Lesion type: [place] artery [place] vs. transplanted heart: [place] heart Associated angina: without angina Qualified Code(s): I25.10 - Atherosclerotic heart disease of [place] coronary artery without angina pectoris Comment: NSTEMI in 12/2018 (6) COPD (chronic obstructive pulmonary disease) Status: Chronic (7) DM2 (diabetes mellitus, type 2) Status: Chronic Qualifiers: Diabetes mellitus complication detail: with chronic kidney disease Chronic kidney disease stage: on chronic dialysis Comment: (8) ESRD (end stage renal disease) on dialysis Code(s): N18.6 - END STAGE RENAL DISEASE; Z99.2 - DEPENDENCE ON RENAL DIALYSIS Status: Chronic (9) Gout Code(s): M10.9 - GOUT, UNSPECIFIED Status: Chronic Qualifiers: Gout site: unspecified site Comment: No Exacerbation noted. (10) Hypertension Code(s): I10 - ESSENTIAL (PRIMARY) HYPERTENSION Status: Chronic Qualifiers: Hypertension type: essential hypertension Qualified Code(s): I10 - Essential (primary) hypertension (11) Lymphedema Code(s): I89.0 - LYMPHEDEMA, NOT ELSEWHERE CLASSIFIED Status: Chronic (12) Morbid obesity due to excess calories Code(s): E66.01 - MORBID (SEVERE) OBESITY DUE TO EXCESS CALORIES Status: Chronic (13) Obesity hypoventilation syndrome Code(s): E66.2 - MORBID (SEVERE) OBESITY WITH ALVEOLAR HYPOVENTILATION Status : Chronic (14) Paroxysmal a-fib Code(s): I48.0 - PAROXYSMAL ATRIAL FIBRILLATION Status: Chronic Comment: cary Reyes - Plan cont current plan of care trying to arrange LTAC * . - Discharge Day Encounter end time: 10:40
--- NOTE | 2019-02-12 09:27 | PRG ---
DATE OF SERVICE: 02/12/2019 SUBJECTIVE: He remains in the CCU. He is eating breakfast this morning. Overall, he looks better. OBJECTIVE: VITAL SIGNS: Temperature 98.7, pulse 83, blood pressure 108/90, O2 saturation 97% on high-flow oxygen. A 24-hour intake 960, output 0. He has not had dialysis since 02/10. HEENT: Unremarkable. NECK: No JVD. LUNGS: Coarse breath sounds. CARDIAC: S1, S2. Regular. ABDOMEN: Obese, soft, nontender. EXTREMITIES: Edematous. LABORATORY DATA: White blood cell count 8, hematocrit 32.7, and platelet count 342. Sodium 129, potassium 4.1, chloride 92, CO2 of 25, BUN 55, creatinine 3.6, and glucose 157. ASSESSMENT: 1. Acute on chronic respiratory failure, requiring intermittent BiPAP. 2. Chronic renal failure. 3. Resolved hypotension. PLAN: See how he does after dialysis today. May be able to go to [facility] by tomorrow if he has a good day today. Working on placement. Job ID: [id number]
[2019-02-12] MEDS: Polyethylene Glycol 3350 17 GM Packet PO SCH ×2 (09:31→20:32)
[2019-02-12] MEDS: Hydrocortisone Sod Succ/PF 100 mg/2 ml Vial IVP SCH ×2 (09:31→20:33)
[2019-02-12] MEDS: Apixaban 5 MG TAB PO SCH ×2 (09:32→20:31)
[2019-02-12] MEDS: Famotidine 20 MG TAB PO SCH (09:32)
[2019-02-12] MEDS: Lactinex Tablet PO SCH ×2 (09:32→20:31)
[2019-02-12] MEDS: Clopidogrel Bisulfate 75 MG TAB PO SCH (09:33)
[2019-02-12] MEDS: Gabapentin 100 MG CAP PO SCH ×3 (09:33→20:31)
[2019-02-12] MEDS: Docusate 100 MG CAP PO SCH ×2 (09:34→20:32)
[2019-02-12] MEDS: Nystatin 500,000 UNITS/5 ML UDCUP SSW SCH ×3 (09:35→20:32)
[2019-02-12] MEDS: Clotrimazole 1 % Cream 30 GM TUBE TOP SCH ×2 (09:40→22:52)
[2019-02-12] MEDS: EPOETIN ALFA-EPBX (ESRD) 10,000 UNIT/ML VIAL IVP SCH (11:03)
--- NOTE | 2019-02-12 13:14 | PRG ---
DATE OF SERVICE: 02/12/2019 SUBJECTIVE: A 58-year-old gentleman, being seen for end-stage renal disease. The patient denies any nausea, vomiting, or chest pain. OBJECTIVE: CONSTITUTIONAL: Awake, alert, in no acute distress. GENERAL APPEARANCE AND MENTAL STATUS: Fair. VITAL SIGNS: Afebrile, pulse 91, breathing 16, blood pressure 109/76. HEAD/NECK: Normocephalic. Atraumatic. EYES: EOMI. No deformity. EARS: Clear. No ulcers. NOSE: Intact. No lesions. MOUTH: Clear. No discharge. THROAT: Clear. No exudate. LUNGS: Clear. No crackles. CARDIAC: S1, S2. No rub. ABDOMEN: Benign. Bowel sounds positive. GENITALIA/RECTUM: [place] absent. BACK/EXTREMITIES: Edema 0+. NEUROLOGICAL: Alert and motor intact. SKIN: LYMPHATICS: LABORATORY DATA: Reviewed. ASSESSMENT AND PLAN: 1. Stage 3 chronic kidney disease. Plan dialysis. 2. Hypertension, stable. 3. Anemia, stable. 4. Medication based on GFR appropriate. Job ID: [id number]
[2019-02-12] MEDS: HumaLOG 300 UNITS/3 ML VIAL SC PRN (17:20)
[2019-02-12] MEDS: Atorvastatin Calcium 20 MG TAB PO SCH (20:31)
[2019-02-12] MEDS: rOPINIRole HCl 2 MG TAB PO SCH (20:32)
[2019-02-13] MEDS: HumaLOG 300 UNITS/3 ML VIAL SC PRN (05:49)
[2019-02-13] MEDS: Levothyroxine Sodium 88 MCG TAB PO SCH (05:49)
[2019-02-13 06:12] LABS: #Monocytes 0.5 thou/uL (0.11-0.59); #Neutrophils 6.7 thou/uL (1.40-6.50); %Basophils 0.1 % (0.0-1.0); %Eosinophils 0.3 % (0.0-10.0); %Lymphocytes 12.6 % (21.0-51.0); %Monocytes 5.8 % (0.0-10.0); %Neutrophils 81.2 % (42.0-75.0); Hemoglobin 9.3 g/dL (14.0-18.0); Mean Corpuscular HGB CONC 29.2 g/dL (32.0-36.0); Mean Corpuscular Hemoglobin 26.9 pg (27.0-31.0); Mean Corpuscular Volume 92.1 fL (78.0-98.0); Mean Platelet Volume 8.3 fL (7.4-10.4); Platelet Count 272 thou/uL (130-400); RBC Distribution Width 18.8 % (11.5-14.5); Red Blood Cell (RBC) Count 3.43 mill/uL (4.70-6.10); White Blood Cell (WBC) Count 8.2 thou/uL (4.8-10.8)
[2019-02-13 06:22] LABS: Anion Gap 14 mmol/L (10-20); BUN (Urea Nitrogen) 40 mg/dL (8.4-25.7); Calc. Creatinine Clearance 58 mL/min (70-130); Calcium 9.5 mg/dL (7.8-10.44); Carbon Dioxide 29 mmol/L (22-29); Chloride 93 mmol/L (98-107); Estimated GFR-MDRD 22; Glucose 157 mg/dL (70-105); Sodium 132 mmol/L (136-145)
[2019-02-13] MEDS: Sucralfate 1 GM TAB PO SCH ×4 (07:37→20:01)
[2019-02-13] MEDS: Sevelamer Carbonate 800 MG TAB PO SCH ×3 (07:37→16:12)
[2019-02-13] MEDS: Midodrine HCl 5 MG TAB PO SCH ×3 (07:37→16:12)
--- NOTE | 2019-02-13 09:43 | PRG ---
DATE OF SERVICE: 02/13/2019 SUBJECTIVE: He is in good spirits. He had no acute complaints. OBJECTIVE: VITAL SIGNS: Temperature 97.9, pulse 91, blood pressure 96/83. A 24-hour intake 415, output 1900. HEENT: Unremarkable. NECK: No JVD. CHEST: Fairly clear. CARDIAC: S1, S2. Regular. ABDOMEN: Obese, soft, nontender. EXTREMITIES: Slight edema. LABORATORY DATA: White blood cell count 8.2, hematocrit 31.7, and platelet count 272. Sodium 132, potassium 4, chloride 93, CO2 of 29, BUN 40, creatinine 2.8, glucose 157. ASSESSMENT: 1. Acute on chronic respiratory failure. He is requiring nocturnal BiPAP. 2. Chronic renal failure. 3. Resolved hypotension. PLAN: 1. Move to [facility]. Continue dialysis. 2. We have put an LTAC referral for severe deconditioning. Job ID: [id number]
[2019-02-13] MEDS: Docusate 100 MG CAP PO SCH ×2 (10:03→19:59)
[2019-02-13] MEDS: Polyethylene Glycol 3350 17 GM Packet PO SCH ×2 (10:03→20:00)
[2019-02-13] MEDS: Gabapentin 100 MG CAP PO SCH ×3 (10:04→20:00)
[2019-02-13] MEDS: Famotidine 20 MG TAB PO SCH (10:04)
[2019-02-13] MEDS: Clopidogrel Bisulfate 75 MG TAB PO SCH (10:04)
[2019-02-13] MEDS: predniSONE 20 MG TAB PO SCH (10:05)
[2019-02-13] MEDS: Apixaban 5 MG TAB PO SCH ×2 (10:06→19:59)
[2019-02-13] MEDS: Lactinex Tablet PO SCH ×2 (10:06→20:00)
[2019-02-13] MEDS: Clotrimazole 1 % Cream 30 GM TUBE TOP SCH ×2 (10:07→19:59)
[2019-02-13] MEDS: Nystatin 500,000 UNITS/5 ML UDCUP SSW SCH ×3 (10:11→20:00)
--- NOTE | 2019-02-13 10:52 | PDOC.PN ---
- Subjective Encounter Start Date: 02/13/19 Encounter Start Time: 10:51 Subjective: Pt is seen and examined for Acute On Chronic Respiratory Failure -: on BIPAP at night, feeling better - Objective Resuscitation Status - Order Detail: 02/12/19 16:57 Resuscitation Status Routine Resuscitation Status: DNAR: NO Resuscitation Discussed with: Patient at bedside MAR Reviewed: Yes Vital Signs & Weight: Vital Signs (12 hours) Temp Pulse Resp Pulse Ox 02/13/19 08:00 93 L 02/13/19 07:56 97 22 H 94 L 02/13/19 07:55 96 02/13/19 07:00 97.9 F 02/13/19 03:00 98.3 F 02/13/19 01:55 96 02/13/19 00:00 98.8 F Weight Weight 333 lb 12.478 oz Most Recent Monitor Data Heart Rate from ECG 96 NIBP 114/74 NIBP BP-Mean 87 Respiration from ECG 22 SpO2 96 I&O: 02/12/19 02/13/19 02/14/19 06:59 06:59 06:59 Intake Total 960 1415 410 Output Total 0 Balance 960 1415 410 Result Diagrams: 02/13/19 05:22 02/13/19 05:22 Additional Labs: Accuchecks 02/11/19 02/11/19 02/11/19 21:17 17:02 11:50 POC Glucose 161 H 166 H 188 H 02/11/19 04:59 POC Glucose 152 H Radiology Reviewed by me: Yes Phys Exam - Physical Examination HEENT: PERRLA, moist MMs, sclera anicteric, oral pharynx no lesions Neck: no nodes, no JVD, supple Respiratory: no wheezing, no rales, no rhonchi Diminished Breath sounds Cardiovascular: RRR, no significant murmur, no rub Gastrointestinal: soft, non-tender, no distention, positive bowel sounds Musculoskeletal: no edema, pulses present Neurological: non-focal, normal sensation, moves all 4 limbs Lymphatic: no nodes Psychiatric: normal affect, A&O x 3 Dx/Plan (1) Acute on chronic respiratory failure with hypoxia and hypercapnia Code(s): J96.21 - ACUTE AND CHRONIC RESPIRATORY FAILURE WITH HYPOXIA; J96.22 - ACUTE AND CHRONIC RESPIRATORY FAILURE WITH HYPERCAPNIA Status: Acute Comment : Bipap as needed (2) Anemia of renal disease Code(s): D63.1 - ANEMIA IN CHRONIC KIDNEY DISEASE Status: Chronic Comment: stable (3) DM2 (diabetes mellitus, type 2) Status: Chronic Qualifiers: Diabetes mellitus complication detail: with chronic kidney disease Chronic kidney disease stage: on chronic dialysis Comment: (4) ESRD (end stage renal disease) on dialysis Code(s): N18.6 - END STAGE RENAL DISEASE; Z99.2 - DEPENDENCE ON RENAL DIALYSIS Status: Chronic (5) CAD (coronary artery disease) Code(s): I25.10 - ATHSCL HEART DISEASE OF [place] CORONARY ARTERY W/O ANG PCTRS Status: Chronic Qualifiers: Coronary Disease-Associated Artery/Lesion type: [place] artery [place] vs. transplanted heart: [place] heart Associated angina: without angina Qualified Code(s): I25.10 - Atherosclerotic heart disease of [place] coronary artery without angina pectoris Comment: NSTEMI in 12/2018 (6) Hypertension Code(s): I10 - ESSENTIAL (PRIMARY) HYPERTENSION Status: Chronic Qualifiers: Hypertension type: essential hypertension Qualified Code(s): I10 - Essential (primary) hypertension (7) Lymphedema Code(s): I89.0 - LYMPHEDEMA, NOT ELSEWHERE CLASSIFIED Status: Chronic (8) Morbid obesity due to excess calories Code(s): E66.01 - MORBID (SEVERE) OBESITY DUE TO EXCESS CALORIES Status: Chronic - Plan Awaiting LTAC Placement * . Review of Systems - Review of Systems Eyes: negative: Pain, Vision Change, Conjunctivae Inflammation, Eyelid Inflammation, Redness, Other ENT: negative: Ear Pain, Ear Discharge, Nose Pain, Nose Discharge, Nose Congestion, Mouth Pain, Mouth Swelling, Throat Pain, Throat Swelling, Other Respiratory: Cough, Shortness of Breath, Sputum Cardiovascular: negative: chest pain, palpitations, orthopnea, paroxysmal nocturnal dyspnea, edema, light headedness, other Gastrointestinal: negative: Nausea, Vomiting, Abdominal Pain, Diarrhea, Constipation, Melena, Hematochezia, Other Genitourinary: negative: Dysuria, Frequency, Incontinence, Hematuria, Retention , Other Musculoskeletal: negative: Neck Pain, Shoulder Pain, Arm Pain, Back Pain, Hand Pain, Leg Pain, Foot Pain, Other - Medications/Allergies Allergies/Adverse Reactions: Allergies Allergy/AdvReac Type Severity Reaction Status Date / Time quinapril HCl [From Accupril] Allergy Verified 11/05/18 03:21 Medications: Current Medications Acetaminophen (Tylenol) 650 mg PO Q6H PRN PRN Reason: Mild Pain (1-3) Last Admin: 02/08/19 04:18 Dose: 650 mg Acidophilus (Floranex) 1 tab PO BID [facility] Last Admin: 02/13/19 10:06 Dose: 1 tab Albuterol/Ipratropium (Duoneb) 3 ml NEB QID-RT [facility] Last Admin: 02/13/19 07:56 Dose: 3 ml Apixaban (Eliquis) 5 mg PO BID [facility] Last Admin: 02/13/19 10:06 Dose: 5 mg Atorvastatin Calcium (Lipitor) 20 mg PO HS [facility] Last Admin: 02/12/19 20:31 Dose: 20 mg Bisacodyl (Dulcolax) 10 mg PO DAILYPRN PRN PRN Reason: Constipation Cholecalciferol (Vitamin D3) 4,000 units PO DAILY [facility] Last Admin: 02/13/19 10:03 Dose: 4,000 units Clopidogrel Bisulfate (Plavix) 75 mg PO DAILY [facility] Last Admin: 02/13/19 10:04 Dose: 75 mg Clotrimazole (Lotrimin 1% Cream) 0 gm TOP BID [facility] Last Admin: 02/13/19 10:07 Dose: 1 appful Dextrose/Water (Dextrose 50%) 25 gm SLOW IVP PRN PRN PRN Reason: Hypoglycemia Docusate Sodium (Colace) 100 mg PO BID [facility] Last Admin: 02/13/19 10:03 Dose: 100 mg Famotidine (Pepcid) 20 mg PO DAILY [facility] Last Admin: 02/13/19 10:04 Dose: 20 mg Gabapentin (Neurontin) 100 mg PO TID [facility] Last Admin: 02/13/19 10:04 Dose: 100 mg Glucagon (Glucagon) 1 mg IM PRN PRN PRN Reason: Hypoglycemia Guaifenesin/Dextromethorphan (Robitussin Dm) 15 ml PO Q4H PRN PRN Reason: Cough Dextrose/Water (D5w) 1,000 mls @ 0 mls/hr IV .Q0M PRN PRN Reason: Hypoglycemia Insulin Human Lispro (Humalog) 0 units SC .MILD SLIDING SCALE PRN PRN Reason: Mild Correctional Scale Last Admin: 02/13/19 05:49 Dose: 2 units Insulin Human Lispro (Humalog) 0 units SC .BEDTIME SLIDING SC PRN PRN Reason: Bedtime Correctional Scale Ipratropium Beals (Atrovent) 2.5 ml NEB Q12H PRN PRN Reason: SOB &/or Wheezing Levothyroxine Sodium (Synthroid) 88 mcg PO 0630 [facility] Last Admin: 02/13/19 05:49 Dose: 88 mcg Midodrine (Proamatine) 15 mg PO TID[facility] Last Admin: 02/13/19 07:37 Dose: 15 mg Nystatin (Mycostatin Powder) 0 gm TOP BIDPRN PRN PRN Reason: SKIN RASH Last Admin: 02/09/19 21:33 Dose: 1 applic Nystatin (Mycostatin) 500,000 units SSW TID [facility] Last Admin: 02/13/19 10:11 Dose: 500,000 units Ondansetron HCl (Zofran Odt) 4 mg PO Q6H PRN PRN Reason: Nausea/Vomiting Ondansetron HCl (Zofran) 4 mg IVP Q6H PRN PRN Reason: Nausea/Vomiting Polyethylene Glycol (Miralax) 17 gm PO BID [facility] Last Admin: 02/13/19 10:03 Dose: 17 gm Prednisone (Prednisone) 40 mg PO DAILY [facility] Last Admin: 02/13/19 10:05 Dose: 40 mg Ropinirole HCl (Requip) 4 mg PO HS [facility] Last Admin: 02/12/19 20:32 Dose: 4 mg Sertraline HCl (Zoloft) 25 mg PO DAILY [facility] Last Admin: 02/13/19 10:05 Dose: 25 mg Sevelamer Carbonate (Renvela) 2,400 mg PO TID-[facility] Last Admin: 02/13/19 07:37 Dose: 2,400 mg Sodium Chloride (Flush - Normal Saline) 10 ml IVF PRN PRN PRN Reason: Saline Flush Sucralfate (Carafate) 1 gm PO [facility] Last Admin: 02/13/19 07:37 Dose: 1 gm
--- NOTE | 2019-02-13 12:49 | PRG ---
DATE OF SERVICE: 02/13/2019 SUBJECTIVE: A 58-year-old gentleman, being seen for end-stage renal disease. The patient denies any nausea, vomiting, or chest pain. OBJECTIVE: CONSTITUTIONAL: Awake, alert, in no acute distress. GENERAL APPEARANCE AND MENTAL STATUS: Fair. VITAL SIGNS: Afebrile, pulse 111, breathing 16, blood pressure 129/81. HEAD/NECK: Normocephalic. Atraumatic. EYES: EOMI. No deformity. EARS: Clear. No ulcers. NOSE: Intact. No lesions. MOUTH: Clear. No discharge. THROAT: Clear. No exudate. LUNGS: Clear. No crackles. CARDIAC: S1, S2. No rub. ABDOMEN: Benign. Bowel sounds positive. GENITALIA/RECTUM: [place] absent. BACK/EXTREMITIES: Edema 0+. NEUROLOGICAL: Alert and motor intact. SKIN: LYMPHATICS: LABORATORY DATA: Potassium . ASSESSMENT AND PLAN: 1. Stage 3 chronic kidney disease. Plan dialysis tomorrow. 2. Hypertension, stable. 3. Anemia, stable. 4. Medication based on GFR appropriate. Job ID: [id number]
[2019-02-13] MEDS: Atorvastatin Calcium 20 MG TAB PO SCH (19:59)
[2019-02-13] MEDS: rOPINIRole HCl 2 MG TAB PO SCH (20:00)
[2019-02-14 05:26] LABS: #Lymphocytes 0.8 thou/uL (1.20-3.40); #Monocytes 0.3 thou/uL (0.11-0.59); #Neutrophils 7.1 thou/uL (1.40-6.50); %Basophils 0.1 % (0.0-1.0); %Eosinophils 0.4 % (0.0-10.0); %Lymphocytes 9.9 % (21.0-51.0); %Monocytes 4.1 % (0.0-10.0); %Neutrophils 85.6 % (42.0-75.0); Hemoglobin 9.6 g/dL (14.0-18.0); Mean Corpuscular HGB CONC 29.3 g/dL (32.0-36.0); Mean Corpuscular Hemoglobin 26.8 pg (27.0-31.0); Mean Corpuscular Volume 91.3 fL (78.0-98.0); Mean Platelet Volume 8.6 fL (7.4-10.4); Platelet Count 268 thou/uL (130-400); RBC Distribution Width 18.7 % (11.5-14.5); White Blood Cell (WBC) Count 8.3 thou/uL (4.8-10.8)
[2019-02-14] MEDS: HumaLOG 300 UNITS/3 ML VIAL SC PRN ×4 (05:26→21:13)
[2019-02-14] MEDS: Levothyroxine Sodium 88 MCG TAB PO SCH (05:26)
[2019-02-14 05:43] LABS: Anion Gap 15 mmol/L (10-20); BUN (Urea Nitrogen) 49 mg/dL (8.4-25.7); Calc. Creatinine Clearance 52 mL/min (70-130); Calcium 9.7 mg/dL (7.8-10.44); Carbon Dioxide 28 mmol/L (22-29); Chloride 91 mmol/L (98-107); Estimated GFR-MDRD 20; Glucose 205 mg/dL (70-105); Sodium 130 mmol/L (136-145)
[2019-02-14] MEDS: Midodrine HCl 5 MG TAB PO SCH ×3 (07:46→16:37)
[2019-02-14] MEDS: Sucralfate 1 GM TAB PO SCH ×4 (07:46→21:07)
[2019-02-14] MEDS: Sevelamer Carbonate 800 MG TAB PO SCH ×3 (07:46→16:37)
--- NOTE | 2019-02-14 08:13 | PRG ---
DATE OF SERVICE: 02/14/2019 SUBJECTIVE: The patient is sitting up in bed, eating breakfast, no distress. OBJECTIVE: VITAL SIGNS: Temperature 97.2, pulse 87, blood pressure 145/99, 24-hour intake 1555, output 1900. HEENT: Unremarkable. NECK: No JVD. LUNGS: Fairly clear anteriorly. CARDIAC: S1, S2. Regular. ABDOMEN: Soft, obese, nontender. EXTREMITIES: No edema. LABORATORY DATA: White blood cell count 8.3, hematocrit 32.9, and platelet count 268. Sodium 130, potassium 4, chloride 91, CO2 of 28, BUN 49, creatinine 3.2, glucose 205. ASSESSMENT: 1. Chronic respiratory failure secondary to chronic obstructive pulmonary disease. 2. Chronic renal failure requiring dialysis, resolved. 3. Hypotension. PLAN: 1. Main issue at this point is rehabilitation. If not transferred to an LTAC soon, then consider rehab here. 2. Needs to get up into a chair with assistance. Job ID: [id number]
[2019-02-14] MEDS: Apixaban 5 MG TAB PO SCH ×2 (09:16→21:08)
[2019-02-14] MEDS: Polyethylene Glycol 3350 17 GM Packet PO SCH ×2 (09:16→21:09)
[2019-02-14] MEDS: Clopidogrel Bisulfate 75 MG TAB PO SCH (09:18)
[2019-02-14] MEDS: Clotrimazole 1 % Cream 30 GM TUBE TOP SCH ×2 (09:18→21:09)
[2019-02-14] MEDS: Lactinex Tablet PO SCH ×2 (09:18→21:08)
[2019-02-14] MEDS: predniSONE 20 MG TAB PO SCH (09:18)
[2019-02-14] MEDS: Docusate 100 MG CAP PO SCH ×2 (09:18→21:07)
[2019-02-14] MEDS: Famotidine 20 MG TAB PO SCH (09:18)
[2019-02-14] MEDS: Gabapentin 100 MG CAP PO SCH ×3 (09:18→21:08)
[2019-02-14] MEDS: EPOETIN ALFA-EPBX (ESRD) 10,000 UNIT/ML VIAL IVP SCH (09:19)
[2019-02-14] MEDS: Nystatin 500,000 UNITS/5 ML UDCUP SSW SCH ×3 (09:19→21:08)
--- NOTE | 2019-02-14 12:11 | PRG ---
DATE OF SERVICE: 02/14/2019 SUBJECTIVE: The patient feels like he is getting better overall. He has no need to express at the moment. Still has a fair amount of fluid in his abdominal pannus. OBJECTIVE: VITAL SIGNS: Temperature 97.7, pulse 92, respirations are 20, BP 115/79, and O2 saturation 91% on nasal cannula. GENERAL APPEARANCE: Morbidly obese, age-appropriate male. Awake, alert, pleasant, oriented, and has some hypophonia. HEART: Irregular without murmurs noted. LUNGS: Difficult to auscultate due to the patient's body habitus, but no wheezes or rales are noted. ABDOMEN: Morbidly obese. There is some pitting edema in the lower left lateral pannus. EXTREMITIES: Minimal edema. LABORATORY DATA: White count 8.3, hemoglobin 9.6, and platelets are 268. Sodium 130, potassium 4.0, chloride is 91, BUN 49, creatinine is 3.25, and glucose 191 to 254. IMPRESSION AND PLAN: 1. Hypotension, appears to be improved off Levophed now. Compromised his ability to get dialysis, but is back on it now, likely related to some prior myocardial injury. 2. Dysphagia. Continue work with Speech Therapy. 3. [id number] respiratory failure with hypoxemia and hypercapnia, currently with nasal cannula and frequent need for BiPAP. 4. Anemia of renal disease, stable. 5. Coronary artery disease, status post NSTEMI in December, appears to be stable with no recurrent symptoms. 6. Chronic obstructive pulmonary disease, chronic, followed by Pulmonary. 7. Diabetes mellitus, slightly elevated. May need to have some adjustments in that soon. 8. End-stage renal disease, on dialysis. 9. Gout, stable, chronic. 10. History of hypertension. Again, the patient had significant complications with hypotension. Medicines were held. 11. Lymphedema. The patient has chronic edema, likely some volume overload, likely some right heart failure. Continuing to manage fluids through dialysis. 12. Hypoventilation of obesity syndrome. Continue BiPAP as needed. 13. Atrial fibrillation, on Eliquis with good rate control. 14. Disposition: The patient appears to be back in a more stable scenario now, working on skilled placement. Job ID: [id number]
[2019-02-14] MEDS: Acetaminophen 325 MG TAB PO PRN (13:10)
--- NOTE | 2019-02-14 13:10 | PRG ---
DATE OF SERVICE: 02/14/2019 SUBJECTIVE: A 58-year-old gentleman being seen for end-stage renal disease. The patient denied nausea, vomiting, or chest pain. OBJECTIVE: CONSTITUTIONAL: The patient is awake and alert. VITAL SIGNS: Afebrile. Pulse 92, breathing 16, blood pressure 104/66. GENERAL APPEARANCE AND MENTAL STATUS: Fair. HEAD/NECK: Normocephalic. Atraumatic. EYES: EOMI. No deformity. EARS: Clear. No ulcers. NOSE: Intact. No lesions. MOUTH: Clear. No discharge. THROAT: Clear. No exudate. LUNGS: Clear. No crackles. CARDIAC: S1, S2. No rub. ABDOMEN: Benign. Bowel sounds positive. GENITALIA/RECTUM: [place] absent. BACK/EXTREMITIES: Edema 0+. NEUROLOGICAL: Alert and motor intact. SKIN: LYMPHATICS: LABORATORY DATA: Labs showed hemoglobin 9.6. ASSESSMENT AND PLAN: 1. Stage 3 chronic kidney disease. Continue hemodialysis. 2. Hypertension, stable. 3. Anemia, stable. 4. Overall prognosis is poor. Job ID: [id number]
[2019-02-14] MEDS ORDERED: Clopidogrel Bisulfate 75 MG TAB ONE (19:53)
[2019-02-14] MEDS: Atorvastatin Calcium 20 MG TAB PO SCH (21:07)
[2019-02-14] MEDS: rOPINIRole HCl 2 MG TAB PO SCH (21:07)
[2019-02-15] MEDS: Levothyroxine Sodium 88 MCG TAB PO SCH (06:00)
[2019-02-15] MEDS: HumaLOG 300 UNITS/3 ML VIAL SC PRN ×3 (06:00→21:48)
[2019-02-15 07:03] LABS: Anion Gap 16 mmol/L (10-20); BUN (Urea Nitrogen) 36 mg/dL (8.4-25.7); Calc. Creatinine Clearance 29 mL/min (70-130); Calcium 9.7 mg/dL (7.8-10.44); Carbon Dioxide 28 mmol/L (22-29); Chloride 94 mmol/L (98-107); Estimated GFR-MDRD 24; Glucose 183 mg/dL (70-105); Sodium 134 mmol/L (136-145)
[2019-02-15] MEDS: Midodrine HCl 5 MG TAB PO SCH ×3 (07:35→16:49)
[2019-02-15] MEDS: Sucralfate 1 GM TAB PO SCH ×4 (07:35→21:46)
[2019-02-15] MEDS: Sevelamer Carbonate 800 MG TAB PO SCH ×3 (07:35→16:49)
--- NOTE | 2019-02-15 08:50 | PRG ---
DATE OF SERVICE: 02/15/2019 SUBJECTIVE: Mr. Lyons is about the same, but no acute changes overnight. OBJECTIVE: VITAL SIGNS: Temperature 97.3, pulse 84, blood pressure 123/87, and O2 sat 96%. HEENT: Unremarkable. NECK: No JVD. LUNGS: Poor air movement, but no wheezing. CARDIAC: S1 and S2, regular. ABDOMEN: Soft, obese. EXTREMITIES: No edema. LABORATORY DATA: White blood cell count 8.3, hematocrit 32.9, and platelet count 268. Sodium 134, potassium 4, BUN 36, creatinine 2.6, and glucose 183. ASSESSMENT: 1. Chronic hypoxic respiratory failure secondary to chronic obstructive pulmonary disease. 2. Chronic renal failure, requiring dialysis. 3. Hypotension. PLAN: 1. Awaiting placement. 2. Continuing present care. Job ID: [id number]
[2019-02-15] MEDS: Polyethylene Glycol 3350 17 GM Packet PO SCH ×2 (09:31→21:47)
[2019-02-15] MEDS: Apixaban 5 MG TAB PO SCH ×2 (09:32→21:46)
[2019-02-15] MEDS: Nystatin 500,000 UNITS/5 ML UDCUP SSW SCH ×3 (09:33→21:44)
[2019-02-15] MEDS: Gabapentin 100 MG CAP PO SCH ×3 (09:33→21:46)
[2019-02-15] MEDS: Clopidogrel Bisulfate 75 MG TAB PO SCH (09:33)
[2019-02-15] MEDS: Docusate 100 MG CAP PO SCH ×2 (09:33→21:46)
[2019-02-15] MEDS: Clotrimazole 1 % Cream 30 GM TUBE TOP SCH ×2 (09:33→21:47)
[2019-02-15] MEDS: Lactinex Tablet PO SCH ×2 (09:33→21:46)
[2019-02-15] MEDS: Famotidine 20 MG TAB PO SCH (09:33)
[2019-02-15] MEDS: predniSONE 20 MG TAB PO SCH (09:34)
--- NOTE | 2019-02-15 12:08 | PRG ---
DATE OF SERVICE: 02/15/2019 SUBJECTIVE: A 58-year-old gentleman being seen for end-stage renal disease. The patient denied nausea, vomiting, or chest pain. OBJECTIVE: CONSTITUTIONAL: The patient is awake and alert. VITAL SIGNS: Afebrile. Pulse 91, breathing 16, and blood pressure 111/78. GENERAL APPEARANCE AND MENTAL STATUS: Fair. HEAD/NECK: Normocephalic. Atraumatic. EYES: EOMI. No deformity. EARS: Clear. No ulcers. NOSE: Intact. No lesions. MOUTH: Clear. No discharge. THROAT: Clear. No exudate. LUNGS: Clear. No crackles. CARDIAC: S1, S2. No rub. ABDOMEN: Benign. Bowel sounds positive. GENITALIA/RECTUM: [place] absent. BACK/EXTREMITIES: Edema 0+. NEUROLOGICAL: Alert and motor intact. SKIN: LYMPHATICS: LABORATORY DATA: Labs showed hemoglobin 9.6. Creatinine 2.6. ASSESSMENT AND PLAN: 1. Stage 3 chronic kidney disease, stable. 2. Hypertension, stable. 3. Anemia, stable. 4. Medication based on GFR appropriate. 5. Overall prognosis is poor. Job ID: [id number]
--- NOTE | 2019-02-15 16:42 | PDOC.PN ---
- Subjective Encounter Start Date: 02/15/19 Encounter Start Time: 16:40 Subjective: Now problem. -: Off levophed. - Objective Resuscitation Status - Order Detail: 02/12/19 16:57 Resuscitation Status Routine Resuscitation Status: DNAR: NO Resuscitation Discussed with: Patient at bedside Vital Signs & Weight: Vital Signs (12 hours) Temp Pulse Resp Pulse Ox 02/15/19 14:56 97.2 F L 02/15/19 14:53 97 23 H 99 02/15/19 10:45 91 22 H 99 02/15/19 10:36 97.5 F L 02/15/19 07:54 94 L 02/15/19 07:53 87 24 H 96 02/15/19 07:51 98 02/15/19 07:05 97.3 F L Weight Admit Weight 325 lb Weight 335 lb 1.642 oz Most Recent Monitor Data Heart Rate from ECG 101 NIBP 122/85 NIBP BP-Mean 97 Respiration from ECG 30 SpO2 89 I&O: 02/14/19 02/15/19 02/16/19 06:59 06:59 06:59 Intake Total 1555 800 Output Total 0 Balance 1555 800 Result Diagrams: 02/14/19 05:10 02/15/19 05:53 Additional Labs: Accuchecks 02/15/19 02/15/19 02/15/19 16:10 10:19 05:35 POC Glucose 211 H 159 H 178 H 02/14/19 02/13/19 02/13/19 19:56 11:48 05:50 POC Glucose 266 H 147 H 157 H 02/12/19 02/12/19 02/12/19 20:50 17:19 11:07 POC Glucose 142 H 205 H 145 H Phys Exam - Physical Examination Constitutional: NAD morbidly obese HEENT: PERRLA, moist MMs Neck: no JVD short thick neck fair air entry bilaterally with transmitted sound. Cardiovascular: RRR Gastrointestinal: soft, non-tender, positive bowel sounds morbidly obese with abdominal wall edema dependent edema of the back but none of the legs Neurological: non-focal awake and conversational Dx/Plan (1) Dysphagia Code(s): R13.10 - DYSPHAGIA, UNSPECIFIED Status: Acute Comment: weak voice, working with speech therapy (2) Hypotension Status: Acute Comment: likely multifactoral, improved and off levophed (3) Acute on chronic respiratory failure with hypoxia and hypercapnia Code(s): J96.21 - ACUTE AND CHRONIC RESPIRATORY FAILURE WITH HYPOXIA; J96.22 - ACUTE AND CHRONIC RESPIRATORY FAILURE WITH HYPERCAPNIA Status: Acute Comment : Bipap as needed (4) Volume overload Code(s): E87.70 - FLUID OVERLOAD, UNSPECIFIED Status: Acute (5) CAD (coronary artery disease) Code(s): I25.10 - ATHSCL HEART DISEASE OF [place] CORONARY ARTERY W/O ANG PCTRS Status: Chronic Qualifiers: Coronary Disease-Associated Artery/Lesion type: [place] artery [place] vs. transplanted heart: [place] heart Associated angina: without angina Qualified Code(s): I25.10 - Atherosclerotic heart disease of [place] coronary artery without angina pectoris Comment: NSTEMI in 12/2018 (6) DM2 (diabetes mellitus, type 2) Status: Chronic Qualifiers: Diabetes mellitus complication detail: with chronic kidney disease Chronic kidney disease stage: on chronic dialysis Comment: (7) ESRD (end stage renal disease) on dialysis Code(s): N18.6 - END STAGE RENAL DISEASE; Z99.2 - DEPENDENCE ON RENAL DIALYSIS Status: Chronic (8) Morbid obesity due to excess calories Code(s): E66.01 - MORBID (SEVERE) OBESITY DUE TO EXCESS CALORIES Status: Chronic (9) Obesity hypoventilation syndrome Code(s): E66.2 - MORBID (SEVERE) OBESITY WITH ALVEOLAR HYPOVENTILATION Status : Chronic (10) Paroxysmal a-fib Code(s): I48.0 - PAROXYSMAL ATRIAL FIBRILLATION Status: Chronic Comment: on Eliquis (11) Hypothyroidism Code(s): E03.9 - HYPOTHYROIDISM, UNSPECIFIED Status: Acute (12) Chronic anticoagulation Code(s): Z79.01 - [facility] ([facility] USE OF ANTICOAGULANTS Status: Acute - Plan Continue oxygen supplementation and BIPAP as needed. -: HD as per nephrology -: Continue other treatments including eliquis, levothyroxine and midodrine. * .
[2019-02-15] MEDS: Atorvastatin Calcium 20 MG TAB PO SCH (21:46)
[2019-02-15] MEDS: rOPINIRole HCl 2 MG TAB PO SCH (21:47)
[2019-02-16] MEDS ORDERED: Clopidogrel Bisulfate 75 MG TAB ONE (05:20)
[2019-02-16] MEDS: Levothyroxine Sodium 88 MCG TAB PO SCH (06:24)
[2019-02-16] MEDS: HumaLOG 300 UNITS/3 ML VIAL SC PRN ×4 (06:24→20:36)
[2019-02-16] MEDS: Nystatin 500,000 UNITS/5 ML UDCUP SSW SCH ×3 (08:52→20:35)
[2019-02-16] MEDS: Sevelamer Carbonate 800 MG TAB PO SCH ×3 (08:53→16:33)
[2019-02-16] MEDS: Gabapentin 100 MG CAP PO SCH ×3 (08:53→20:34)
[2019-02-16] MEDS: Docusate 100 MG CAP PO SCH ×2 (08:53→20:34)
[2019-02-16] MEDS: Apixaban 5 MG TAB PO SCH ×2 (08:53→20:34)
[2019-02-16] MEDS: Lactinex Tablet PO SCH ×2 (08:53→20:34)
[2019-02-16] MEDS: Clopidogrel Bisulfate 75 MG TAB PO SCH (08:54)
[2019-02-16] MEDS: predniSONE 20 MG TAB PO SCH (08:54)
[2019-02-16] MEDS: Famotidine 20 MG TAB PO SCH (08:55)
[2019-02-16] MEDS: Polyethylene Glycol 3350 17 GM Packet PO SCH ×2 (08:55→20:35)
[2019-02-16] MEDS: Clotrimazole 1 % Cream 30 GM TUBE TOP SCH ×2 (08:56→20:34)
[2019-02-16] MEDS: Midodrine HCl 5 MG TAB PO SCH ×3 (08:57→16:33)
[2019-02-16] MEDS: Sucralfate 1 GM TAB PO SCH ×4 (08:57→20:34)
[2019-02-16] MEDS: EPOETIN ALFA-EPBX (ESRD) 10,000 UNIT/ML VIAL IVP SCH (08:59)
--- NOTE | 2019-02-16 09:12 | PRG ---
DATE OF SERVICE: 02/16/2019 SUBJECTIVE: He is doing well and no complaints. OBJECTIVE: VITAL SIGNS: Temperature is 98.1, pulse 107, blood pressure 144/105. HEENT: Unremarkable. NECK: No JVD. LUNGS: Fairly clear anteriorly. CARDIAC: S1, S2. Regular. ABDOMEN: Soft. Obese. EXTREMITIES: No edema. LABORATORY DATA: No new labs were obtained today. ASSESSMENT: 1. Severe chronic obstructive pulmonary disease. 2. Obstructive sleep apnea. 3. Chronic renal failure, requiring hemodialysis. 4. Persistent hypotension, which is better with midodrine. PLAN: 1. Continue current care and dialysis. 2. Awaiting placement. Job ID: [id number]
[2019-02-16 09:31] LABS: Chloride 94 mmol/L (98-107); Potassium 3.9 mmol/L (3.5-5.1); Sodium 132 mmol/L (136-145)
[2019-02-16 09:32] LABS: Calcium 9.8 mg/dL (7.8-10.44); Glucose 216 mg/dL (70-105)
[2019-02-16 09:34] LABS: Anion Gap 16 mmol/L (10-20); Carbon Dioxide 26 mmol/L (22-29)
[2019-02-16 09:36] LABS: BUN (Urea Nitrogen) 49 mg/dL (8.4-25.7); Calc. Creatinine Clearance 53 mL/min (70-130); Estimated GFR-MDRD 20
--- NOTE | 2019-02-16 09:51 | PDOC.PN ---
- Subjective Encounter Start Date: 02/16/19 Encounter Start Time: 09:49 Subjective: No new complain. -: coughing up some sputum. -: Denied fever, Chest pain or SOB. still on oxygen and nocturnal BIPAP - Objective Resuscitation Status - Order Detail: 02/12/19 16:57 Resuscitation Status Routine Resuscitation Status: DNAR: NO Resuscitation Discussed with: Patient at bedside Vital Signs & Weight: Vital Signs (12 hours) Temp Pulse Resp Pulse Ox 02/16/19 08:22 103 H 20 02/16/19 07:52 98 02/16/19 07:02 98.1 F 02/16/19 03:46 97.6 F 02/16/19 02:35 80 02/16/19 00:00 99 02/15/19 23:36 98.6 F Weight Admit Weight 325 lb Weight 335 lb 1.642 oz Most Recent Monitor Data Heart Rate from ECG 96 NIBP 128/83 NIBP BP-Mean 98 Respiration from ECG 29 SpO2 96 I&O: 02/15/19 02/16/19 02/17/19 06:59 06:59 06:59 Intake Total 800 800 Output Total 0 Balance 800 800 Result Diagrams: 02/14/19 05:10 02/16/19 09:06 Additional Labs: Accuchecks 02/16/19 02/15/19 02/15/19 05:36 19:49 16:10 POC Glucose 211 H 207 H 211 H 02/15/19 10:19 POC Glucose 159 H Phys Exam - Physical Examination Constitutional: NAD morbidly obese HEENT: moist MMs short thick neck fair air entry with some transmitted sound. decreased at the bases Cardiovascular: RRR Gastrointestinal: soft, positive bowel sounds morbidly obese with edema of the abdominal wall dependent edema noted awake and conversational Psychiatric: A&O x 3 Dx/Plan (1) Hypotension Status: Acute Comment: likely multifactoral, improved and off levophed. Still on midodrine. (2) Acute on chronic respiratory failure with hypoxia and hypercapnia Code(s): J96.21 - ACUTE AND CHRONIC RESPIRATORY FAILURE WITH HYPOXIA; J96.22 - ACUTE AND CHRONIC RESPIRATORY FAILURE WITH HYPERCAPNIA Status: Acute Comment : Bipap as needed (3) Volume overload Code(s): E87.70 - FLUID OVERLOAD, UNSPECIFIED Status: Acute Comment: UF as tolerated with HD. Limited due to hypotension. (4) CAD (coronary artery disease) Code(s): I25.10 - ATHSCL HEART DISEASE OF [place] CORONARY ARTERY W/O ANG PCTRS Status: Chronic Qualifiers: Coronary Disease-Associated Artery/Lesion type: [place] artery [place] vs. transplanted heart: [place] heart Associated angina: without angina Qualified Code(s): I25.10 - Atherosclerotic heart disease of [place] coronary artery without angina pectoris Comment: NSTEMI in 12/2018 (5) DM2 (diabetes mellitus, type 2) Status: Chronic Qualifiers: Diabetes mellitus complication detail: with chronic kidney disease Chronic kidney disease stage: on chronic dialysis Comment: (6) ESRD (end stage renal disease) on dialysis Code(s): N18.6 - END STAGE RENAL DISEASE; Z99.2 - DEPENDENCE ON RENAL DIALYSIS Status: Chronic (7) Morbid obesity due to excess calories Code(s): E66.01 - MORBID (SEVERE) OBESITY DUE TO EXCESS CALORIES Status: Chronic (8) Obesity hypoventilation syndrome Code(s): E66.2 - MORBID (SEVERE) OBESITY WITH ALVEOLAR HYPOVENTILATION Status : Chronic (9) Paroxysmal a-fib Code(s): I48.0 - PAROXYSMAL ATRIAL FIBRILLATION Status: Chronic Comment: on Eliquis (10) Hypothyroidism Code(s): E03.9 - HYPOTHYROIDISM, UNSPECIFIED Status: Acute (11) Chronic anticoagulation Code(s): Z79.01 - [facility] (CURRENT) USE OF ANTICOAGULANTS Status: Acute (12) Dysphagia Code(s): R13.10 - DYSPHAGIA, UNSPECIFIED Status: Acute Comment: weak voice, working with speech therapy - Plan Continue HD with UF as tolerated as per Nephrology. -: BIPAP at night. -: oxygen as tolerated during the day. -: Awaiting placement. -: Continue midodrine and other medications. * .
[2019-02-16] MEDS ORDERED: Heparin 10,000 UNITS/ 10 ML VIAL ONE (11:11)
--- NOTE | 2019-02-16 12:31 | PRG ---
DATE OF SERVICE: 02/16/2019 SUBJECTIVE: This is a 58-year-old gentleman being seen for end-stage kidney disease. The patient denied nausea, vomiting, or chest pain. OBJECTIVE: CONSTITUTIONAL: The patient is awake and alert. VITAL SIGNS: Afebrile. Pulse 85, breathing 16, blood pressure 128/80. GENERAL APPEARANCE AND MENTAL STATUS: Fair. HEAD/NECK: Normocephalic. Atraumatic. EYES: EOMI. No deformity. EARS: Clear. No ulcers. NOSE: Intact. No lesions. MOUTH: Clear. No discharge. THROAT: Clear. No exudate. LUNGS: Clear. No crackles. CARDIAC: S1, S2. No rub. ABDOMEN: Benign. Bowel sounds positive. GENITALIA/RECTUM: [place] absent. BACK/EXTREMITIES: Edema 0+. NEUROLOGICAL: Alert and motor intact. SKIN: LYMPHATICS: LABORATORY DATA: Reviewed. ASSESSMENT AND PLAN: 1. Stage 6 chronic kidney disease. Continue hemodialysis. 2. Hypertension, stable. 3. Anemia, stable. 4. Medication based on GFR appropriate. Job ID: [id number]
[2019-02-16] MEDS: Atorvastatin Calcium 20 MG TAB PO SCH (20:34)
[2019-02-16] MEDS: rOPINIRole HCl 2 MG TAB PO SCH (20:34)
[2019-02-17 05:10] LABS: Anion Gap 13 mmol/L (10-20); BUN (Urea Nitrogen) 37 mg/dL (8.4-25.7); Calc. Creatinine Clearance 68 mL/min (70-130); Calcium 9.9 mg/dL (7.8-10.44); Carbon Dioxide 31 mmol/L (22-29); Chloride 96 mmol/L (98-107); Estimated GFR-MDRD 27; Glucose 196 mg/dL (70-105); Potassium 3.9 mmol/L (3.5-5.1); Sodium 136 mmol/L (136-145)
[2019-02-17] MEDS: Levothyroxine Sodium 88 MCG TAB PO SCH (06:02)
[2019-02-17] MEDS: Nystatin 500,000 UNITS/5 ML UDCUP SSW SCH ×3 (09:06→20:29)
[2019-02-17] MEDS: Famotidine 20 MG TAB PO SCH (09:07)
[2019-02-17] MEDS: Midodrine HCl 5 MG TAB PO SCH ×3 (09:07→16:02)
[2019-02-17] MEDS: Lactinex Tablet PO SCH ×2 (09:07→20:29)
[2019-02-17] MEDS: Gabapentin 100 MG CAP PO SCH ×3 (09:08→20:30)
[2019-02-17] MEDS: Apixaban 5 MG TAB PO SCH ×2 (09:08→20:29)
[2019-02-17] MEDS: Sevelamer Carbonate 800 MG TAB PO SCH ×3 (09:08→16:02)
[2019-02-17] MEDS: predniSONE 20 MG TAB PO SCH (09:08)
[2019-02-17] MEDS: Sucralfate 1 GM TAB PO SCH ×4 (09:08→20:30)
[2019-02-17] MEDS: Clotrimazole 1 % Cream 30 GM TUBE TOP SCH ×2 (09:09→20:30)
[2019-02-17] MEDS: Clopidogrel Bisulfate 75 MG TAB PO SCH (09:09)
[2019-02-17] MEDS: Docusate 100 MG CAP PO SCH ×2 (09:10→20:30)
[2019-02-17] MEDS: Polyethylene Glycol 3350 17 GM Packet PO SCH ×2 (09:10→20:27)
[2019-02-17] MEDS: HumaLOG 300 UNITS/3 ML VIAL SC PRN ×3 (12:05→20:30)
--- NOTE | 2019-02-17 14:21 | PRG ---
DATE OF SERVICE: 02/17/2019 SUBJECTIVE: A 58-year-old gentleman being seen for end-stage renal disease. The patient denies any nausea, vomiting, or chest pain. OBJECTIVE: CONSTITUTIONAL: On examination, the patient is awake and alert. VITAL SIGNS: Afebrile, pulse 70, breathing 16, and blood pressure 160/98. GENERAL APPEARANCE AND MENTAL STATUS: Fair. HEAD/NECK: Normocephalic. Atraumatic. EYES: EOMI. No deformity. EARS: Clear. No ulcers. NOSE: Intact. No lesions. MOUTH: Clear. No discharge. THROAT: Clear. No exudate. LUNGS: Clear. No crackles. CARDIAC: S1, S2. No rub. ABDOMEN: Benign. Bowel sounds positive. GENITALIA/RECTUM: [place] absent. BACK/EXTREMITIES: Edema 0+. NEUROLOGICAL: Alert and motor intact. LABORATORY DATA: Reviewed. ASSESSMENT AND PLAN: 1. Stage 3, chronic kidney disease. Plan dialysis tomorrow. 2. Hypertension, stable. 3. Anemia, stable. 4. Medications based on glomerular filtration rate are appropriate. Job ID: [id number]
--- NOTE | 2019-02-17 14:40 | PRG ---
DATE OF SERVICE: 02/17/2019 SERVICE: Pulmonary Medicine. INTERVAL HISTORY: The patient is doing okay from respiratory standpoint. On 2 L nasal cannula, he is saturating 98%. He is cool, calm, and collected. He is talking in full sentences, though his speech is decreased in intensity. He got family visiting with him today. He has no specific questions or complaints. PHYSICAL EXAMINATION: VITAL SIGNS: Afebrile, pulse 98, blood pressure 123/49, respirations 33, and saturation 96% on 2 L nasal cannula. GENERAL: The patient is awake and alert, in no apparent distress. LUNGS: Decent air entry. There is no prolonged expiratory phase. Adventitious sounds cannot be appreciated. HEART: Normal rate, regular. ABDOMEN: Soft, nontender, and nondistended. Bowel sounds are positive. MUSCULOSKELETAL: No cyanosis or clubbing. No pitting in bilateral lower extremities. NEUROLOGIC: Grossly nonfocal. LABORATORY DATA: Creatinine 2.48, BUN 37. Basic metabolic profile is otherwise unremarkable. ASSESSMENT: 1. Chronic hypoxic and hypercapnic respiratory failure. 2. Obesity hypoventilation syndrome. 3. End-stage renal disease. DISCUSSION AND PLAN: Supportive care will be continued. He will use BiPAP on an as needed basis. He is undergoing intermittent dialysis. Laboratory holiday will be provided tomorrow morning. Pulmonary/Critical Care will continue to follow along while the patient remains in-house. Job ID: [id number]
--- NOTE | 2019-02-17 19:16 | PDOC.PN ---
- Subjective Encounter Start Date: 02/17/19 Encounter Start Time: 15:15 Doing ok overall. Just feels tired. - Objective Resuscitation Status - Order Detail: 02/12/19 16:57 Resuscitation Status Routine Resuscitation Status: DNAR: NO Resuscitation Discussed with: Patient at bedside Vital Signs & Weight: Vital Signs (12 hours) Temp Pulse Resp BP Pulse Ox 02/17/19 14:42 98.2 F 02/17/19 11:39 160/98 H 02/17/19 10:32 87 23 H 99 02/17/19 10:31 98.4 F 02/17/19 07:25 96 Weight Admit Weight 325 lb Weight 348 lb 5.286 oz Most Recent Monitor Data Heart Rate from ECG 104 NIBP 94/66 NIBP BP-Mean 75 Respiration from ECG 33 SpO2 97 I&O: 02/16/19 02/17/19 02/18/19 06:59 06:59 06:59 Intake Total 800 200 Output Total 0 0 Balance 800 200 Result Diagrams: 02/14/19 05:10 02/17/19 04:30 Additional Labs: Accuchecks 02/17/19 02/17/19 02/17/19 16:01 10:13 05:54 POC Glucose 246 H 278 H 186 H 02/16/19 20:09 POC Glucose 210 H Phys Exam - Physical Examination Constitutional: NAD Respiratory: no wheezing, no rales, no rhonchi, clear to auscultation bilateral Cardiovascular: RRR, no significant murmur Gastrointestinal: soft, non-tender, no distention dependent edema Neurological: non-focal Dx/Plan (1) Hypotension Status: Acute Comment: likely multifactoral, improved and off levophed. Still on midodrine. (2) Anemia of renal disease Code(s): D63.1 - ANEMIA IN CHRONIC KIDNEY DISEASE Status: Chronic Comment: stable (3) CAD (coronary artery disease) Code(s): I25.10 - ATHSCL HEART DISEASE OF [place] CORONARY ARTERY W/O ANG PCTRS Status: Chronic Qualifiers: Coronary Disease-Associated Artery/Lesion type: [place] artery [place] vs. transplanted heart: [place] heart Associated angina: without angina Qualified Code(s): I25.10 - Atherosclerotic heart disease of [place] coronary artery without angina pectoris Comment: NSTEMI in 12/2018 (4) COPD (chronic obstructive pulmonary disease) Status: Chronic (5) DM2 (diabetes mellitus, type 2) Status: Chronic Qualifiers: Diabetes mellitus complication detail: with chronic kidney disease Chronic kidney disease stage: on chronic dialysis Comment: (6) ESRD (end stage renal disease) on dialysis Code(s): N18.6 - END STAGE RENAL DISEASE; Z99.2 - DEPENDENCE ON RENAL DIALYSIS Status: Chronic (7) Hypertension Code(s): I10 - ESSENTIAL (PRIMARY) HYPERTENSION Status: Chronic Qualifiers: Hypertension type: essential hypertension Qualified Code(s): I10 - Essential (primary) hypertension (8) Morbid obesity due to excess calories Code(s): E66.01 - MORBID (SEVERE) OBESITY DUE TO EXCESS CALORIES Status: Chronic (9) Obesity hypoventilation syndrome Code(s): E66.2 - MORBID (SEVERE) OBESITY WITH ALVEOLAR HYPOVENTILATION Status : Chronic (10) Paroxysmal a-fib Code(s): I48.0 - PAROXYSMAL ATRIAL FIBRILLATION Status: Chronic Comment: on Eliquis - Plan * Doing ok. * Still profoundly weak. * Continue dialysis * Working on placement. * likely needs LTACH.
[2019-02-17] MEDS: rOPINIRole HCl 2 MG TAB PO SCH (20:29)
[2019-02-17] MEDS: Atorvastatin Calcium 20 MG TAB PO SCH (20:30)
[2019-02-18] MEDS: Levothyroxine Sodium 88 MCG TAB PO SCH (05:45)
[2019-02-18] MEDS: HumaLOG 300 UNITS/3 ML VIAL SC PRN ×4 (05:47→21:35)
[2019-02-18] MEDS: Midodrine HCl 5 MG TAB PO SCH ×3 (08:58→17:14)
[2019-02-18] MEDS: Nystatin 500,000 UNITS/5 ML UDCUP SSW SCH ×3 (08:58→21:34)
[2019-02-18] MEDS: Lactinex Tablet PO SCH ×2 (08:59→21:34)
[2019-02-18] MEDS: Docusate 100 MG CAP PO SCH ×2 (08:59→21:34)
[2019-02-18] MEDS: Sevelamer Carbonate 800 MG TAB PO SCH ×3 (08:59→17:14)
[2019-02-18] MEDS: Sucralfate 1 GM TAB PO SCH ×4 (08:59→21:34)
[2019-02-18] MEDS: Clopidogrel Bisulfate 75 MG TAB PO SCH (08:59)
[2019-02-18] MEDS: Apixaban 5 MG TAB PO SCH ×2 (08:59→21:34)
[2019-02-18] MEDS: predniSONE 20 MG TAB PO SCH (08:59)
[2019-02-18] MEDS: Famotidine 20 MG TAB PO SCH (09:00)
[2019-02-18] MEDS: Polyethylene Glycol 3350 17 GM Packet PO SCH ×2 (09:01→21:34)
[2019-02-18] MEDS: Clotrimazole 1 % Cream 30 GM TUBE TOP SCH ×2 (09:02→21:35)
[2019-02-18] MEDS: Gabapentin 100 MG CAP PO SCH ×3 (09:03→21:34)
--- NOTE | 2019-02-18 11:56 | PDOC.PN ---
- Subjective Encounter Start Date: 02/18/19 Encounter Start Time: 11:51 Had an episode of tachycardia with heart up to 240 associated with oxygen desaturation followed by unresponsiveness earlier today. Head of bed was raised and BIPAP was started with prompt improvement in mental status and oxygenation. Back to baseline currently. - Objective Resuscitation Status - Order Detail: 02/12/19 16:57 Resuscitation Status Routine Resuscitation Status: DNAR: NO Resuscitation Discussed with: Patient at bedside Vital Signs & Weight: Vital Signs (12 hours) Temp Pulse Resp Pulse Ox 02/18/19 11:05 97.4 F L 02/18/19 10:10 92 02/18/19 10:08 92 20 99 02/18/19 07:41 97 02/18/19 07:11 97.4 F L 02/18/19 07:06 99 02/18/19 07:04 96 24 H 99 02/18/19 04:00 98.1 F 02/18/19 02:21 77 100 02/18/19 00:00 98.0 F Weight Admit Weight 325 lb Weight 339 lb 4.662 oz Most Recent Monitor Data Heart Rate from ECG 87 NIBP 134/87 NIBP BP-Mean 102 Respiration from ECG 24 SpO2 99 I&O: 02/17/19 02/18/19 02/19/19 06:59 06:59 06:59 Intake Total 200 250 Output Total 0 Balance 200 250 Result Diagrams: 02/14/19 05:10 02/17/19 04:30 Additional Labs: Accuchecks 02/18/19 02/18/19 02/17/19 10:34 05:42 20:20 POC Glucose 212 H 232 H 241 H 02/17/19 16:01 POC Glucose 246 H Phys Exam - Physical Examination Constitutional: NAD afebrile HEENT: moist MMs Neck: supple short thick neck. ZLeft IJ dialysis catheter noted fair air entry with transmitted sound. decreased at the bases Cardiovascular: RRR Gastrointestinal: soft, positive bowel sounds morbidly obese with abdominal wall edema Musculoskeletal: pulses present Neurological: non-focal, moves all 4 limbs dysphonia noted Psychiatric: A&O x 3 Dx/Plan (1) Hypotension Status: Acute Comment: likely multifactoral, improved and off levophed. Still on midodrine. (2) Acute on chronic respiratory failure with hypoxia and hypercapnia Code(s): J96.21 - ACUTE AND CHRONIC RESPIRATORY FAILURE WITH HYPOXIA; J96.22 - ACUTE AND CHRONIC RESPIRATORY FAILURE WITH HYPERCAPNIA Status: Acute Comment : Bipap as needed (3) Volume overload Code(s): E87.70 - FLUID OVERLOAD, UNSPECIFIED Status: Acute Comment: UF as tolerated with HD. Limited due to hypotension. (4) CAD (coronary artery disease) Code(s): I25.10 - ATHSCL HEART DISEASE OF [place] CORONARY ARTERY W/O ANG PCTRS Status: Chronic Qualifiers: Coronary Disease-Associated Artery/Lesion type: [place] artery [place] vs. transplanted heart: [place] heart Associated angina: without angina Qualified Code(s): I25.10 - Atherosclerotic heart disease of [place] coronary artery without angina pectoris Comment: NSTEMI in 12/2018 (5) DM2 (diabetes mellitus, type 2) Status: Chronic Qualifiers: Diabetes mellitus complication detail: with chronic kidney disease Chronic kidney disease stage: on chronic dialysis Comment: (6) ESRD (end stage renal disease) on dialysis Code(s): N18.6 - END STAGE RENAL DISEASE; Z99.2 - DEPENDENCE ON RENAL DIALYSIS Status: Chronic (7) Morbid obesity due to excess calories Code(s): E66.01 - MORBID (SEVERE) OBESITY DUE TO EXCESS CALORIES Status: Chronic (8) Obesity hypoventilation syndrome Code(s): E66.2 - MORBID (SEVERE) OBESITY WITH ALVEOLAR HYPOVENTILATION Status : Chronic (9) Paroxysmal a-fib Code(s): I48.0 - PAROXYSMAL ATRIAL FIBRILLATION Status: Chronic Comment: on Eliquis (10) Hypothyroidism Code(s): E03.9 - HYPOTHYROIDISM, UNSPECIFIED Status: Acute (11) Chronic anticoagulation Code(s): Z79.01 - [facility] (CURRENT) USE OF ANTICOAGULANTS Status: Acute (12) Dysphagia Code(s): R13.10 - DYSPHAGIA, UNSPECIFIED Status: Acute Comment: weak voice, working with speech therapy - Plan Continue current treatment. -: HD as per Nephrology -: Awaiting placement * .
--- NOTE | 2019-02-18 14:02 | PRG ---
DATE OF SERVICE: 02/18/2019 SERVICE: Pulmonary Medicine. INTERVAL HISTORY: This morning, the patient was laid flat in order to give him a bath. In the process of doing this, he had profound desaturation and developed a tachyarrhythmia. Jamie sanchez was called on him. We immediately put him back on BiPAP, and he started coming around without difficulty. I spent a considerable amount of time at bedside, titrating BiPAP, watching closely to make certain he is going to recover neurologic function. He never lost pulse during these events. His blood pressure remains stable. PHYSICAL EXAMINATION: VITAL SIGNS: Afebrile, pulse 87, blood pressure 117/86, respirations 22, and saturation 93% on 28% FiO2. GENERAL: The patient is awake and alert, in no apparent distress. LUNGS: There is decreased air entry. No prolonged expiratory phase is present. HEART: Normal rate and regular. ABDOMEN: Soft, nontender, and nondistended. Bowel sounds are positive. MUSCULOSKELETAL: No cyanosis or clubbing. There is no pitting in the bilateral lower extremities. NEUROLOGIC: Grossly nonfocal. LABORATORY DATA: Blood sugars ranged from 186 to 241. ASSESSMENT: 1. Chronic hypoxic and hypercapnic respiratory failure. 2. Obesity hypoventilation syndrome. 3. End-stage renal disease. DISCUSSION AND PLAN: The patient is doing okay from a respiratory standpoint. Ultimately, he cannot lie flat without significant support off the BiPAP. We will try to avoid this in the future. Supportive measures will be continued. Pulmonary/Critical Care will continue to follow along while the patient remains in this location. It has been several days since we got laboratories. As such, we will repeat these things in the morning. CRITICAL CARE TIME: 30 minutes. Job ID: [id number]
--- NOTE | 2019-02-18 14:16 | PRG ---
DATE OF SERVICE: 02/18/2019 SUBJECTIVE: A 58-year-old gentleman being seen for end-stage renal disease. The patient denies nausea, vomiting, or chest pain. OBJECTIVE: CONSTITUTIONAL: On examination, the patient is awake and alert. VITAL SIGNS: breathing 16, and blood pressure 117/86. GENERAL APPEARANCE AND MENTAL STATUS: Fair. HEAD/NECK: Normocephalic. Atraumatic. EYES: EOMI. No deformity. EARS: Clear. No ulcers. NOSE: Intact. No lesions. MOUTH: Clear. No discharge. THROAT: Clear. No exudate. LUNGS: Clear. No crackles. CARDIAC: S1, S2. No rub. ABDOMEN: Benign. Bowel sounds positive. GENITALIA/RECTUM: [place] absent. BACK/EXTREMITIES: Edema 0+. NEUROLOGICAL: Alert and motor intact. SKIN: LYMPHATICS: LABORATORY DATA: Reviewed. ASSESSMENT AND PLAN: 1. Stage chronic kidney disease, stable. 2. Hypertension, stable. 3. Anemia, stable. 4. Medication based on GFR appropriate. Job ID: [id number]
[2019-02-18] MEDS: rOPINIRole HCl 2 MG TAB PO SCH (21:34)
[2019-02-18] MEDS: Atorvastatin Calcium 20 MG TAB PO SCH (21:34)
[2019-02-19] MEDS ORDERED: Sterile Water 10 ML VIAL IVP SCH (05:00)
[2019-02-19] MEDS ORDERED: Activase 2 MG VIAL CATH SCH (05:00)
[2019-02-19] MEDS: Levothyroxine Sodium 88 MCG TAB PO SCH (05:50)
[2019-02-19] MEDS: HumaLOG 300 UNITS/3 ML VIAL SC PRN ×3 (06:34→21:50)
[2019-02-19 08:15] LABS: Anion Gap 14 mmol/L (10-20); BUN (Urea Nitrogen) 55 mg/dL (8.4-25.7); Calc. Creatinine Clearance 52 mL/min (70-130); Carbon Dioxide 28 mmol/L (22-29); Chloride 95 mmol/L (98-107); Estimated GFR-MDRD 20; Glucose 240 mg/dL (70-105); Magnesium 2.1 mg/dL (1.6-2.6); Potassium 4.2 mmol/L (3.5-5.1); Sodium 133 mmol/L (136-145)
[2019-02-19 08:16] LABS: #Eosinphils 0.1 thou/uL (0.0-0.7); #Monocytes 0.6 thou/uL (0.11-0.59); #Neutrophils 8.4 thou/uL (1.40-6.50); %Basophils 0.4 % (0.0-1.0); %Eosinophils 0.5 % (0.0-10.0); %Lymphocytes 10.3 % (21.0-51.0); %Monocytes 5.7 % (0.0-10.0); Hemoglobin 10.3 g/dL (14.0-18.0); Mean Corpuscular HGB CONC 27.9 g/dL (32.0-36.0); Mean Corpuscular Hemoglobin 25.7 pg (27.0-31.0); Mean Corpuscular Volume 92.2 fL (78.0-98.0); Mean Platelet Volume 8.7 fL (7.4-10.4); Platelet Count 257 thou/uL (130-400); RBC Distribution Width 18.7 % (11.5-14.5); White Blood Cell (WBC) Count 10.2 thou/uL (4.8-10.8)
[2019-02-19 08:22] LABS: Phosphorus 1.6 mg/dL (2.3-4.7)
--- NOTE | 2019-02-19 08:23 | PRG ---
DATE OF SERVICE: 02/19/2019 SUBJECTIVE: Mr. Lyons is about the same. Has no acute complaints. OBJECTIVE: VITAL SIGNS: Temperature 97.3, pulse 101, blood pressure 121/85, 24 hour intake, 200. Output, not quantitated. HEENT: Unremarkable. NECK: No JVD. LUNGS: Clear anteriorly. CARDIAC: S1, S2. Regular. ABDOMEN: Obese, soft, nontender. EXTREMITIES: Edematous. LABORATORY DATA: No new labs were done today. ASSESSMENT: 1. Chronic respiratory failure secondary to chronic obstructive pulmonary disease and obstructive sleep apnea. 2. Chronic renal failure requiring hemodialysis. PLAN: The patient needs to have the left IJ dialysis catheter removed. I think IV access is a problem. May need to consider midline or PICC line on the left side. Job ID: [id number]
[2019-02-19 09:25] LABS: Anisocytosis MODERATE=16-30 cells (100X) (0-5/hpf); MDiff Complete? YES; Ovalocytes SLIGHT = 2-5 cells (100X) (0-1/hpf); Polychromasia MODERATE = 3-4 cells (100X) (0-2/hpf)
--- NOTE | 2019-02-19 11:07 | PDOC.PN ---
- Subjective Encounter Start Date: 02/19/19 Encounter Start Time: 11:06 Subjective: No new problem -: Having HD. - Objective Resuscitation Status - Order Detail: 02/12/19 16:57 Resuscitation Status Routine Resuscitation Status: DNAR: NO Resuscitation Discussed with: Patient at bedside Vital Signs & Weight: Vital Signs (12 hours) Temp Pulse Resp Pulse Ox 02/19/19 10:29 88 23 H 100 02/19/19 08:08 101 H 31 H 100 02/19/19 08:00 100 02/19/19 07:15 97.3 F L 02/19/19 03:11 98.4 F 02/19/19 00:00 98.3 F Weight Admit Weight 325 lb Weight 334 lb 14.115 oz Most Recent Monitor Data Heart Rate from ECG 91 NIBP 108/73 NIBP BP-Mean 84 Respiration from ECG 23 SpO2 99 I&O: 02/18/19 02/19/19 02/20/19 06:59 06:59 06:59 Intake Total 250 200 240 Balance 250 200 240 Result Diagrams: 02/19/19 07:37 02/19/19 07:37 Additional Labs: Accuchecks 02/19/19 02/19/19 02/18/19 10:46 06:34 21:33 POC Glucose 171 H 242 H 237 H 02/18/19 16:26 POC Glucose 234 H Phys Exam - Physical Examination Constitutional: NAD morbidly obese, afebrile and anicteric. HEENT: moist MMs short thick neck fair air entry with some transmitted sound. Air entry is decreased at both bases regular with ectopics. Gastrointestinal: soft, non-tender, positive bowel sounds morbidly obese mild to moderate bilateral lower extremity edema awake and conversational. communication is limited due to dysphonia Psychiatric: A&O x 3 Dx/Plan (1) Hypotension Status: Acute Comment: likely multifactoral, improved and off levophed. Still on midodrine. (2) Acute on chronic respiratory failure with hypoxia and hypercapnia Code(s): J96.21 - ACUTE AND CHRONIC RESPIRATORY FAILURE WITH HYPOXIA; J96.22 - ACUTE AND CHRONIC RESPIRATORY FAILURE WITH HYPERCAPNIA Status: Acute Comment : Bipap as needed (3) Volume overload Code(s): E87.70 - FLUID OVERLOAD, UNSPECIFIED Status: Acute Comment: UF as tolerated with HD. Limited due to hypotension. (4) CAD (coronary artery disease) Code(s): I25.10 - ATHSCL HEART DISEASE OF [place] CORONARY ARTERY W/O ANG PCTRS Status: Chronic Qualifiers: Coronary Disease-Associated Artery/Lesion type: [place] artery [place] vs. transplanted heart: [place] heart Associated angina: without angina Qualified Code(s): I25.10 - Atherosclerotic heart disease of [place] coronary artery without angina pectoris Comment: NSTEMI in 12/2018 (5) DM2 (diabetes mellitus, type 2) Status: Chronic Qualifiers: Diabetes mellitus complication detail: with chronic kidney disease Chronic kidney disease stage: on chronic dialysis Comment: (6) ESRD (end stage renal disease) on dialysis Code(s): N18.6 - END STAGE RENAL DISEASE; Z99.2 - DEPENDENCE ON RENAL DIALYSIS Status: Chronic (7) Morbid obesity due to excess calories Code(s): E66.01 - MORBID (SEVERE) OBESITY DUE TO EXCESS CALORIES Status: Chronic (8) Obesity hypoventilation syndrome Code(s): E66.2 - MORBID (SEVERE) OBESITY WITH ALVEOLAR HYPOVENTILATION Status : Chronic (9) Paroxysmal a-fib Code(s): I48.0 - PAROXYSMAL ATRIAL FIBRILLATION Status: Chronic Comment: on Eliquis (10) Hypothyroidism Code(s): E03.9 - HYPOTHYROIDISM, UNSPECIFIED Status: Acute (11) Chronic anticoagulation Code(s): Z79.01 - INTERMEDIATE (CURRENT) USE OF ANTICOAGULANTS Status: Acute (12) Dysphagia Code(s): R13.10 - DYSPHAGIA, UNSPECIFIED Status: Acute Comment: weak voice, working with speech therapy (13) Hypophosphatemia Code(s): E83.39 - OTHER DISORDERS OF PHOSPHORUS METABOLISM Status: Acute - Plan Continue current care. -: Awaiting placement -: Dc phosphate binder due to low serum phosphate * .
[2019-02-19] MEDS: Sucralfate 1 GM TAB PO SCH ×4 (12:22→22:04)
[2019-02-19] MEDS: Midodrine HCl 5 MG TAB PO SCH ×3 (12:22→16:38)
[2019-02-19] MEDS: EPOETIN ALFA-EPBX (ESRD) 10,000 UNIT/ML VIAL IVP SCH (12:52)
[2019-02-19] MEDS: Apixaban 5 MG TAB PO SCH ×2 (12:54→22:05)
[2019-02-19] MEDS: Lactinex Tablet PO SCH ×2 (12:54→22:05)
[2019-02-19] MEDS: Nystatin 500,000 UNITS/5 ML UDCUP SSW SCH ×3 (12:54→22:05)
[2019-02-19] MEDS: Gabapentin 100 MG CAP PO SCH ×3 (12:56→22:02)
[2019-02-19] MEDS: Docusate 100 MG CAP PO SCH ×2 (12:57→22:04)
[2019-02-19] MEDS: Famotidine 20 MG TAB PO SCH (12:57)
[2019-02-19] MEDS: Clopidogrel Bisulfate 75 MG TAB PO SCH (12:57)
[2019-02-19] MEDS: predniSONE 20 MG TAB PO SCH (12:58)
[2019-02-19] MEDS: Clotrimazole 1 % Cream 30 GM TUBE TOP SCH ×2 (12:58→22:06)
[2019-02-19] MEDS: Polyethylene Glycol 3350 17 GM Packet PO SCH ×2 (12:59→22:02)
[2019-02-19] MEDS: Sevelamer Carbonate 800 MG TAB PO SCH (13:07)
--- NOTE | 2019-02-19 14:17 | PRG ---
DATE OF SERVICE: 02/19/2019 SUBJECTIVE: Patient was seen and examined at bedside and overnight events noted. Patient denies any shortness of breath or chest pain or palpitation. No history of nausea or vomiting or diarrhea or fever or chills or cramps. OBJECTIVE: GENERAL: This is a morbidly obese male, in no apparent distress. VITAL SIGNS: Temperature 97.0. Heart rate 100. Respiratory rate 18 Blood pressure 113/78 HEENT: Atraumatic, normocephalic. Oral mucosa is moist NECK: Supple. CARDIOVASCULAR: S1, S2 heard. Rate and rhythm regular. RESPIRATORY: Clear to auscultation. GASTROINTESTINAL: Abdomen is soft. MUSCULOSKELETAL: No tenderness. No edema. DERMATOLOGIC: No skin rash. NEUROLOGIC: Alert and awake and oriented X3. No focal neurologic deficits. Moving all the extremities. PSYCHIATRIC: Mood and affect normal. LABORATORY DATA: Potassium is 4.2, BUN is 50, creatinine is 3.2. ASSESSMENT AND PLAN: 1. End-stage renal disease. Continue dialysis as tolerated. 2. Hypotension, stable. 3. Edema, controlled. 4. Prognosis guarded. 5. Anemia. 6. Morbid obesity. Plan to continue on dialysis as tolerated. Prognosis guarded. High risk for complication during dialysis. Job ID: [id number] [facility]
[2019-02-19] MEDS: rOPINIRole HCl 2 MG TAB PO SCH (22:02)
[2019-02-19] MEDS: Atorvastatin Calcium 20 MG TAB PO SCH (22:04)
[2019-02-20] MEDS: HumaLOG 300 UNITS/3 ML VIAL SC PRN ×4 (06:50→22:03)
[2019-02-20] MEDS: Levothyroxine Sodium 88 MCG TAB PO SCH (06:53)
[2019-02-20] MEDS: Midodrine HCl 5 MG TAB PO SCH ×3 (09:05→16:30)
[2019-02-20] MEDS: Sucralfate 1 GM TAB PO SCH ×4 (09:05→22:06)
[2019-02-20] MEDS: Docusate 100 MG CAP PO SCH ×2 (09:06→22:05)
[2019-02-20] MEDS: Clotrimazole 1 % Cream 30 GM TUBE TOP SCH ×2 (09:06→22:04)
[2019-02-20] MEDS: Famotidine 20 MG TAB PO SCH (09:06)
[2019-02-20] MEDS: Clopidogrel Bisulfate 75 MG TAB PO SCH (09:06)
[2019-02-20] MEDS: Apixaban 5 MG TAB PO SCH ×2 (09:06→22:06)
[2019-02-20] MEDS: Gabapentin 100 MG CAP PO SCH ×3 (09:07→22:06)
[2019-02-20] MEDS: predniSONE 20 MG TAB PO SCH (09:07)
[2019-02-20] MEDS: Lactinex Tablet PO SCH ×2 (09:07→22:06)
[2019-02-20] MEDS: Polyethylene Glycol 3350 17 GM Packet PO SCH ×2 (09:07→22:07)
[2019-02-20] MEDS: Nystatin 500,000 UNITS/5 ML UDCUP SSW SCH ×3 (09:07→22:02)
--- NOTE | 2019-02-20 09:58 | PRG ---
DATE OF SERVICE: 02/20/2019 SUBJECTIVE: He is about the same. Still awaiting placement. OBJECTIVE: VITAL SIGNS: Temperature 97.3, pulse 82, blood pressure 113/91, O2 saturation 100%. HEENT: Unremarkable. Negative JVD. LUNGS: Clear. CARDIAC: S1, S2. Regular. ABDOMEN: Obese. EXTREMITIES: No edema. LABORATORY DATA: No labs were done today. ASSESSMENT: Mr. Lyons' clinical status remains the same. He is extremely deconditioned from COPD and chronic renal failure. We are awaiting placement. Job ID: [id number]
--- NOTE | 2019-02-20 10:35 | PRG ---
DATE OF SERVICE: 02/20/2019 SUBJECTIVE: Patient was seen and examined at bedside and overnight events noted. Patient denies any shortness of breath or chest pain or palpitation. No history of nausea or vomiting or diarrhea or fever or chills or cramps. OBJECTIVE: GENERAL: This is a morbidly obese male, in no apparent distress. VITAL SIGNS: Temperature 97.3. Heart rate 90. Respiratory rate 18. Blood pressure 113/91. HEENT: Atraumatic, normocephalic. Oral mucosa is moist NECK: Supple. CARDIOVASCULAR: S1, S2 heard. Rate and rhythm regular. RESPIRATORY: Clear to auscultation. GASTROINTESTINAL: Abdomen is soft. MUSCULOSKELETAL: No tenderness. No edema. DERMATOLOGIC: No skin rash. NEUROLOGIC: Alert and awake and oriented X3. No focal neurologic deficits. Moving all the extremities. PSYCHIATRIC: Mood and affect normal. LABORATORY DATA: Labs not done today. ASSESSMENT AND PLAN: 1. End-stage renal disease. Continue on dialysis as tolerated. 2. Hypotension, making it difficult to have ultrafiltration with dialysis and prognosis guarded. 3. Edema. We will attempt to remove fluid with dialysis, but hypotension is limiting ultrafiltration. 4. Anemia of chronic disease. 5. Morbid obesity. 6. Overall prognosis remains poor and high risk for complication during dialysis including arrhythmias and sudden cardiac arrest and . The patient understands. The patient was consulted. We will continue to follow. Job ID: [id number]
--- NOTE | 2019-02-20 16:46 | PDOC.PN ---
- Subjective Encounter Start Date: 02/20/19 Encounter Start Time: 16:44 Subjective: No new Problem -: Awaiting placement - Objective Resuscitation Status - Order Detail: 02/12/19 16:57 Resuscitation Status Routine Resuscitation Status: DNAR: NO Resuscitation Discussed with: Patient at bedside Vital Signs & Weight: Vital Signs (12 hours) Temp Pulse Resp Pulse Ox 02/20/19 15:05 97.2 F L 02/20/19 14:25 96 29 H 90 L 02/20/19 10:42 108 H 25 H 100 02/20/19 10:37 97.8 F 02/20/19 07:38 98 02/20/19 07:08 97.3 F L 02/20/19 07:05 100 02/20/19 07:03 99 19 99 Weight Admit Weight 325 lb Weight 334 lb 14.115 oz Most Recent Monitor Data Heart Rate from ECG 102 NIBP 135/102 NIBP BP-Mean 113 Respiration from ECG 25 SpO2 96 I&O: 02/19/19 02/20/19 02/21/19 06:59 06:59 06:59 Intake Total 200 720 Output Total 2000 Balance 200 -1280 Result Diagrams: 02/19/19 07:37 02/19/19 07:37 Additional Labs: Accuchecks 02/20/19 02/20/19 02/20/19 16:08 10:13 05:51 POC Glucose 287 H 229 H 183 H 02/19/19 02/19/19 20:49 16:44 POC Glucose 304 H 240 H Phys Exam - Physical Examination Constitutional: NAD morbidly obese HEENT: PERRLA, moist MMs Left IJ trialysis cath noted. fair air entry bilaterally with transmitted breath sounds. tachycardic Gastrointestinal: soft, positive bowel sounds Morbidly obese with abdominal wall edema Mild edema of lower extremities noted awake and conversational. dysphonia persist Dx/Plan (1) Hypotension Status: Acute Comment: likely multifactoral, improved and off levophed. Still on midodrine. (2) Acute on chronic respiratory failure with hypoxia and hypercapnia Code(s): J96.21 - ACUTE AND CHRONIC RESPIRATORY FAILURE WITH HYPOXIA; J96.22 - ACUTE AND CHRONIC RESPIRATORY FAILURE WITH HYPERCAPNIA Status: Acute Comment : Bipap as needed (3) Volume overload Code(s): E87.70 - FLUID OVERLOAD, UNSPECIFIED Status: Acute Comment: UF as tolerated with HD. Limited due to hypotension. (4) CAD (coronary artery disease) Code(s): I25.10 - ATHSCL HEART DISEASE OF [place] CORONARY ARTERY W/O ANG PCTRS Status: Chronic Qualifiers: Coronary Disease-Associated Artery/Lesion type: [place] artery [place] vs. transplanted heart: [place] heart Associated angina: without angina Qualified Code(s): I25.10 - Atherosclerotic heart disease of [place] coronary artery without angina pectoris Comment: NSTEMI in 12/2018 (5) DM2 (diabetes mellitus, type 2) Status: Chronic Qualifiers: Diabetes mellitus complication detail: with chronic kidney disease Chronic kidney disease stage: on chronic dialysis Comment: (6) ESRD (end stage renal disease) on dialysis Code(s): N18.6 - END STAGE RENAL DISEASE; Z99.2 - DEPENDENCE ON RENAL DIALYSIS Status: Chronic (7) Morbid obesity due to excess calories Code(s): E66.01 - MORBID (SEVERE) OBESITY DUE TO EXCESS CALORIES Status: Chronic (8) Obesity hypoventilation syndrome Code(s): E66.2 - MORBID (SEVERE) OBESITY WITH ALVEOLAR HYPOVENTILATION Status : Chronic (9) Paroxysmal a-fib Code(s): I48.0 - PAROXYSMAL ATRIAL FIBRILLATION Status: Chronic Comment: on Eliquis (10) Hypothyroidism Code(s): E03.9 - HYPOTHYROIDISM, UNSPECIFIED Status: Acute (11) Chronic anticoagulation Code(s): Z79.01 - AGILE J[employer] DEVELOPER (CURRENT) USE OF ANTICOAGULANTS Status: Acute (12) Dysphagia Code(s): R13.10 - DYSPHAGIA, UNSPECIFIED Status: Acute Comment: weak voice, working with speech therapy (13) Hypophosphatemia Code(s): E83.39 - OTHER DISORDERS OF PHOSPHORUS METABOLISM Status: Acute - Plan Continue current treatments -: HD with UF at able as Per Nephrology -: for possible discharge ginny. * .
[2019-02-20] MEDS: Atorvastatin Calcium 20 MG TAB PO SCH (22:06)
[2019-02-20] MEDS: rOPINIRole HCl 2 MG TAB PO SCH (22:07)
[2019-02-21] MEDS: Levothyroxine Sodium 88 MCG TAB PO SCH (06:09)
[2019-02-21] MEDS: HumaLOG 300 UNITS/3 ML VIAL SC PRN ×3 (06:11→17:47)
[2019-02-21 06:48] LABS: #Eosinphils 0.1 thou/uL (0.0-0.7); #Lymphocytes 1.3 thou/uL (1.20-3.40); #Monocytes 0.7 thou/uL (0.11-0.59); #Neutrophils 9.6 thou/uL (1.40-6.50); %Basophils 0.2 % (0.0-1.0); %Eosinophils 0.7 % (0.0-10.0); %Lymphocytes 10.9 % (21.0-51.0); %Monocytes 6.3 % (0.0-10.0); %Neutrophils 81.9 % (42.0-75.0); Hemoglobin 10.2 g/dL (14.0-18.0); Mean Corpuscular HGB CONC 28.5 g/dL (32.0-36.0); Mean Corpuscular Hemoglobin 26.2 pg (27.0-31.0); Mean Platelet Volume 8.9 fL (7.4-10.4); Platelet Count 221 thou/uL (130-400); RBC Distribution Width 18.4 % (11.5-14.5); Red Blood Cell (RBC) Count 3.89 mill/uL (4.70-6.10); White Blood Cell (WBC) Count 11.7 thou/uL (4.8-10.8)
[2019-02-21 07:01] LABS: Albumin 3.3 g/dL (3.5-5.0); Anion Gap 13 mmol/L (10-20); BUN (Urea Nitrogen) 54 mg/dL (8.4-25.7); BUN/Creatinine Ratio 17.53; Calc. Creatinine Clearance 56 mL/min (70-130); Carbon Dioxide 30 mmol/L (22-29); Chloride 95 mmol/L (98-107); Estimated GFR-MDRD 21; Glucose 190 mg/dL (70-105); Potassium 3.7 mmol/L (3.5-5.1); Sodium 134 mmol/L (136-145)
[2019-02-21 07:06] LABS: Phosphorus 1.5 mg/dL (2.3-4.7)
[2019-02-21 07:28] LABS: Anisocytosis MODERATE=16-30 cells (100X) (0-5/hpf); MDiff Complete? YES; Ovalocytes SLIGHT = 2-5 cells (100X) (0-1/hpf); Polychromasia MODERATE = 3-4 cells (100X) (0-2/hpf)
--- NOTE | 2019-02-21 08:12 | PRG ---
DATE OF SERVICE: 02/21/2019 SUBJECTIVE: Mr. Lyons is about the same. He continues to await placement. OBJECTIVE: VITAL SIGNS: Temperature 98.2, pulse 80, O2 saturation 100%, blood pressure 126/84. HEENT: Unchanged. NECK: No JVD. LUNGS: He has inspiratory rhonchi bilaterally. CARDIOVASCULAR: S1, S2 regular. ABDOMEN: Obese, soft. EXTREMITIES: No overt edema. LABORATORY DATA: White count 11.7, hematocrit 35.9, and platelet count 221. Sodium 134, potassium 3.7, chloride 95, CO2 of 30, BUN 54, creatinine 3.1, glucose 190. ASSESSMENT: 1. End-stage renal disease, requiring hemodialysis. 2. Chronic obstructive pulmonary disease with exacerbation requiring intermittent BiPAP. PLAN: Awaiting placement. Clinical status remained stable. No new suggestions. Job ID: [id number]
[2019-02-21] MEDS: EPOETIN ALFA-EPBX (ESRD) 10,000 UNIT/ML VIAL IVP SCH (10:00)
[2019-02-21] MEDS: Sucralfate 1 GM TAB PO SCH ×4 (10:09→21:13)
[2019-02-21] MEDS: Midodrine HCl 5 MG TAB PO SCH ×3 (10:09→17:46)
[2019-02-21] MEDS: Apixaban 5 MG TAB PO SCH ×2 (10:10→21:13)
[2019-02-21] MEDS: Clopidogrel Bisulfate 75 MG TAB PO SCH (10:10)
[2019-02-21] MEDS: Docusate 100 MG CAP PO SCH ×2 (10:11→21:15)
[2019-02-21] MEDS: Famotidine 20 MG TAB PO SCH (10:11)
[2019-02-21] MEDS: predniSONE 20 MG TAB PO SCH (10:12)
[2019-02-21] MEDS: Lactinex Tablet PO SCH ×2 (10:12→21:13)
[2019-02-21] MEDS: Polyethylene Glycol 3350 17 GM Packet PO SCH ×2 (10:12→21:15)
[2019-02-21] MEDS: Nystatin 500,000 UNITS/5 ML UDCUP SSW SCH ×3 (10:12→21:13)
[2019-02-21] MEDS: Gabapentin 100 MG CAP PO SCH ×3 (10:12→21:13)
--- NOTE | 2019-02-21 11:28 | PRG ---
DATE OF SERVICE: 02/21/2019 SUBJECTIVE: Patient was seen and examined at bedside and overnight events noted. Patient denies any shortness of breath or chest pain or palpitation. No history of nausea or vomiting or diarrhea or fever or chills or cramps. OBJECTIVE: GENERAL: This is an morbidly obese male, in no apparent distress. VITAL SIGNS: Temperature 98.2, pulse 80. Respiratory rate 22. Blood pressure 126/84. HEENT: Atraumatic, normocephalic. Oral mucosa is moist NECK: Supple. CARDIOVASCULAR: S1, S2 heard. Rate and rhythm regular. RESPIRATORY: Clear to auscultation. GASTROINTESTINAL: Abdomen is soft. MUSCULOSKELETAL: No tenderness. No edema. DERMATOLOGIC: No skin rash. NEUROLOGIC: Alert and awake and oriented X3. No focal neurologic deficits. Moving all the extremities. PSYCHIATRIC: Mood and affect normal. LABORATORY DATA: Potassium is 3.7, BUN is 54, creatinine is 3.1. ASSESSMENT AND PLAN: 1. End-stage renal disease. Continue dialysis as tolerated. 2. Hypotension, better. Able to tolerate dialysis better. 3. Edema, controlled. 4. Anemia. 5. Morbid obesity. Continue dialysis as tolerated. Job ID: [id number]
[2019-02-21] MEDS: Clotrimazole 1 % Cream 30 GM TUBE TOP SCH ×2 (13:43→21:14)
--- NOTE | 2019-02-21 18:09 | PDOC.PN ---
- Subjective Encounter Start Date: 02/21/19 Encounter Start Time: 15:37 Subjective: having nasal bleeds. -: Otherwise No new problem - Objective Resuscitation Status - Order Detail: 02/12/19 16:57 Resuscitation Status Routine Resuscitation Status: DNAR: NO Resuscitation Discussed with: Patient at bedside Vital Signs & Weight: Vital Signs (12 hours) Temp Pulse Resp Pulse Ox 02/21/19 15:10 104 H 28 H 02/21/19 13:00 98.0 F 02/21/19 07:26 98.2 F 02/21/19 07:13 97 02/21/19 07:00 99 02/21/19 06:58 78 21 H 99 Weight Admit Weight 325 lb Weight 342 lb 9.573 oz Most Recent Monitor Data Heart Rate from ECG 96 NIBP 127/88 NIBP BP-Mean 101 Respiration from ECG 28 SpO2 99 I&O: 02/20/19 02/21/19 02/22/19 06:59 06:59 06:59 Intake Total 720 740 Output Total 2000 Balance -1280 740 Result Diagrams: 02/21/19 06:30 02/21/19 06:30 Additional Labs: Accuchecks 02/21/19 02/21/19 02/20/19 13:40 06:05 21:27 POC Glucose 195 H 204 H 223 H Phys Exam - Physical Examination morbidly obese HEENT: moist MMs left trialysis in place Respiratory: no wheezing fair air entry with transmitted sound Cardiovascular: RRR Gastrointestinal: soft, no distention, positive bowel sounds morbidly obese with abdominal wall edema Neurological: moves all 4 limbs Psychiatric: A&O x 3 Dx/Plan (1) Hypotension Status: Acute Comment: likely multifactoral, improved and off levophed. Still on midodrine. (2) Acute on chronic respiratory failure with hypoxia and hypercapnia Code(s): J96.21 - ACUTE AND CHRONIC RESPIRATORY FAILURE WITH HYPOXIA; J96.22 - ACUTE AND CHRONIC RESPIRATORY FAILURE WITH HYPERCAPNIA Status: Acute Comment : Bipap as needed (3) Volume overload Code(s): E87.70 - FLUID OVERLOAD, UNSPECIFIED Status: Acute Comment: UF as tolerated with HD. Limited due to hypotension. (4) CAD (coronary artery disease) Code(s): I25.10 - ATHSCL HEART DISEASE OF [place] CORONARY ARTERY W/O ANG PCTRS Status: Chronic Qualifiers: Coronary Disease-Associated Artery/Lesion type: [place] artery [place] vs. transplanted heart: [place] heart Associated angina: without angina Qualified Code(s): I25.10 - Atherosclerotic heart disease of [place] coronary artery without angina pectoris Comment: NSTEMI in 12/2018 (5) DM2 (diabetes mellitus, type 2) Status: Chronic Qualifiers: Diabetes mellitus complication detail: with chronic kidney disease Chronic kidney disease stage: on chronic dialysis Comment: (6) ESRD (end stage renal disease) on dialysis Code(s): N18.6 - END STAGE RENAL DISEASE; Z99.2 - DEPENDENCE ON RENAL DIALYSIS Status: Chronic (7) Morbid obesity due to excess calories Code(s): E66.01 - [place]BID (SEVERE) OBESITY DUE TO EXCESS CALORIES Status: Chronic (8) Obesity hypoventilation syndrome Code(s): E66.2 - M[place]BID (SEVERE) OBESITY WITH ALVEOLAR HYPOVENTILATION Status : Chronic (9) Paroxysmal a-fib Code(s): I48.0 - PAROXYSMAL ATRIAL FIBRILLATION Status: Chronic Comment: on Srideviquis (10) Hypothyroidism Code(s): E03.9 - HYPOTHYROIDISM, UNSPECIFIED Status: Acute (11) Chronic anticoagulation Code(s): Z79.01 - ON CAR SUPERVISOR (CURRENT) USE OF ANTICOAGULANTS Status: Acute (12) Dysphagia Code(s): R13.10 - DYSPHAGIA, UNSPECIFIED Status: Acute Comment: weak voice, working with speech therapy (13) Hypophosphatemia Code(s): E83.39 - OTHER DISORDERS OF PHOSPHORUS METABOLISM Status: Acute (14) Mild epistaxis Code(s): R04.0 - EPISTAXIS Status: Acute - Plan Start face mask oxygen supplementation. -: Continue other treatments. -: HD as per Nephrology * .
[2019-02-21] MEDS: rOPINIRole HCl 2 MG TAB PO SCH (21:13)
[2019-02-21] MEDS: Atorvastatin Calcium 20 MG TAB PO SCH (21:13)
[2019-02-21] MEDS: Ondansetron PF 4 MG/2 ML Vial IVP PRN (23:53)
[2019-02-22] MEDS: Acetaminophen 325 MG TAB PO PRN (02:25)
[2019-02-22] MEDS: Levothyroxine Sodium 88 MCG TAB PO SCH (06:07)
[2019-02-22] MEDS: HumaLOG 300 UNITS/3 ML VIAL SC PRN ×4 (06:21→22:13)
[2019-02-22] MEDS: Docusate 100 MG CAP PO SCH ×2 (08:33→22:01)
[2019-02-22] MEDS: Polyethylene Glycol 3350 17 GM Packet PO SCH ×2 (08:33→22:02)
[2019-02-22] MEDS: Sucralfate 1 GM TAB PO SCH ×4 (08:35→21:57)
[2019-02-22] MEDS: Nystatin 500,000 UNITS/5 ML UDCUP SSW SCH ×3 (08:37→21:59)
[2019-02-22] MEDS: Midodrine HCl 5 MG TAB PO SCH ×3 (08:37→16:18)
[2019-02-22] MEDS: predniSONE 20 MG TAB PO SCH (08:38)
[2019-02-22] MEDS: Lactinex Tablet PO SCH ×2 (08:38→21:58)
[2019-02-22] MEDS: Clotrimazole 1 % Cream 30 GM TUBE TOP SCH ×2 (08:39→22:01)
[2019-02-22] MEDS: Gabapentin 100 MG CAP PO SCH ×3 (08:39→21:58)
[2019-02-22] MEDS: Famotidine 20 MG TAB PO SCH (08:39)
[2019-02-22] MEDS: Clopidogrel Bisulfate 75 MG TAB PO SCH (08:39)
[2019-02-22] MEDS: Apixaban 5 MG TAB PO SCH ×2 (08:39→21:58)
--- NOTE | 2019-02-22 09:34 | PRG ---
DATE OF SERVICE: 02/22/2019 SUBJECTIVE: The patient is doing about the same, had no acute complaints. OBJECTIVE: VITAL SIGNS: Temperature is 97.5, pulse 114, blood pressure 110/73, O2 saturation 95% on 6 L. HEENT: Unremarkable. NECK: No adenopathy. No JVD. LUNGS: Clear, but distant. CARDIAC: S1 and S2, regular. ABDOMEN: Soft. EXTREMITIES: No edema. LABORATORY DATA: No labs today. ASSESSMENT: 1. Chronic obstructive pulmonary disease, clinically stable. 2. Chronic respiratory failure. 3. Chronic renal failure. PLAN: Awaiting placement. I reviewed his medication list, no changes planned for today. Continue nocturnal BiPAP. Job ID: [id number]
--- NOTE | 2019-02-22 15:02 | PDOC.PN ---
- Subjective Encounter Start Date: 02/22/19 Encounter Start Time: 13:01 Subjective: No new problem - Objective Resuscitation Status - Order Detail: 02/12/19 16:57 Resuscitation Status Routine Resuscitation Status: DNAR: NO Resuscitation Discussed with: Patient at bedside Vital Signs & Weight: Vital Signs (12 hours) Temp Pulse Pulse Pulse Resp BP BP 02/22/19 14:30 94 24 H 02/22/19 10:51 109 H 23 H 02/22/19 10:33 98.2 F 02/22/19 10:29 112 H 108 H 105/79 99/65 02/22/19 08:00 02/22/19 07:38 106 H 27 H 02/22/19 07:16 97.5 F L 02/22/19 03:12 112 H 02/22/19 03:09 98.2 F Pulse Ox Pulse Ox Pulse Ox 02/22/19 14:30 100 02/22/19 10:51 95 02/22/19 10:33 02/22/19 10:29 100 97 02/22/19 08:00 95 02/22/19 07:38 97 02/22/19 07:16 02/22/19 03:12 02/22/19 03:09 Weight Admit Weight 325 lb Weight 342 lb 9.573 oz Most Recent Monitor Data Heart Rate from ECG 113 NIBP 106/76 NIBP BP-Mean 86 Respiration from ECG 14 SpO2 96 I&O: 02/21/19 02/22/19 02/23/19 06:59 06:59 06:59 Intake Total 740 840 Balance 740 840 Result Diagrams: 02/21/19 06:30 02/21/19 06:30 Additional Labs: Accuchecks 02/22/19 02/22/19 02/21/19 10:16 06:10 20:49 POC Glucose 243 H 206 H 258 H 02/21/19 17:47 POC Glucose 215 H Phys Exam - Physical Examination mild respiratory distress HEENT: moist MMs short thick neck Decreased air entry left hemithorax Cardiovascular: RRR Gastrointestinal: non-tender, positive bowel sounds morbidly obese mild bilateral leg edema Neurological: non-focal Psychiatric: A&O x 3 Dx/Plan (1) Hypotension Status: Acute Comment: likely multifactoral, improved and off levophed. Still on midodrine. (2) Acute on chronic respiratory failure with hypoxia and hypercapnia Code(s): J96.21 - ACUTE AND CHRONIC RESPIRATORY FAILURE WITH HYPOXIA; J96.22 - ACUTE AND CHRONIC RESPIRATORY FAILURE WITH HYPERCAPNIA Status: Acute Comment : Bipap as needed (3) Volume overload Code(s): E87.70 - FLUID OVERLOAD, UNSPECIFIED Status: Acute Comment: UF as tolerated with HD. Limited due to hypotension. (4) CAD (coronary artery disease) Code(s): I25.10 - ATHSCL HEART DISEASE OF [place] CORONARY ARTERY W/O ANG PCTRS Status: Chronic Qualifiers: Coronary Disease-Associated Artery/Lesion type: [place] artery [place] vs. transplanted heart: [place] heart Associated angina: without angina Qualified Code(s): I25.10 - Atherosclerotic heart disease of [place] coronary artery without angina pectoris Comment: NSTEMI in 12/2018 (5) DM2 (diabetes mellitus, type 2) Status: Chronic Qualifiers: Diabetes mellitus complication detail: with chronic kidney disease Chronic kidney disease stage: on chronic dialysis Comment: (6) ESRD (end stage renal disease) on dialysis Code(s): N18.6 - END STAGE RENAL DISEASE; Z99.2 - DEPENDENCE ON RENAL DIALYSIS Status: Chronic (7) Morbid obesity due to excess calories Code(s): E66.01 - [place] (SEVERE) OBESITY DUE TO EXCESS CALORIES Status: Chronic (8) Obesity hypoventilation syndrome Code(s): E66.2 - [place] (SEVERE) OBESITY WITH ALVEOLAR HYPOVENTILATION Status : Chronic (9) Paroxysmal a-fib Code(s): I48.0 - PAROXYSMAL ATRIAL FIBRILLATION Status: Chronic Comment: on Eliquis (10) Hypothyroidism Code(s): E03.9 - HYPOTHYROIDISM, UNSPECIFIED Status: Acute (11) Chronic anticoagulation Code(s): Z79.01 - [facility] (CURRENT) USE OF ANTICOAGULANTS Status: Acute (12) Dysphagia Code(s): R13.10 - DYSPHAGIA, UNSPECIFIED Status: Acute Comment: weak voice, working with speech therapy (13) Hypophosphatemia Code(s): E83.39 - OTHER DISORDERS OF PHOSPHORUS METABOLISM Status: Acute (14) Mild epistaxis Code(s): R04.0 - EPISTAXIS Status: Acute - Plan Get CXR -: Continue current treatments -: HD as per Nephrology awaiting placement * .
--- NOTE | 2019-02-22 16:28 | RAD ---
XR Chest 1 View Portable HISTORY:Shortness of breath. COMPARISON: 01/15/2019 study. FINDINGS: Film is of suboptimal inspiration. The heart size is enlarged. The retrocardiac region is d ifficult to assess. There appear to be some interstitial changes present which may be chronic in nature. There is linear atelectatic change in the right base. Left-sided central line is seen catheter tip overlies the left brachiocephalic vein. No pneumothorax. IMPRESSION: Cardiomegaly with suboptimal inspiration and bibasilar interstitial lung change, the castaneda ges could represent atelectasis or scar. They do appear slightly more prominent than on the previous exam.
--- NOTE | 2019-02-22 17:12 | PRG ---
DATE OF SERVICE: 02/22/2019 SUBJECTIVE: Patient was seen and examined at bedside and overnight events noted. Patient denies any shortness of breath or chest pain or palpitation. No history of nausea or vomiting or diarrhea or fever or chills or cramps. OBJECTIVE: GENERAL: This is a morbidly obese male, in no apparent distress. VITAL SIGNS: Temperature 98.6, pulse 100, respiratory rate 23, blood pressure 97/50. HEENT: Atraumatic, normocephalic. Oral mucosa is moist. NECK: Supple. CARDIOVASCULAR: S1, S2 heard. Rate and rhythm regular. RESPIRATORY: Clear to auscultation. GASTROINTESTINAL: Abdomen is soft. MUSCULOSKELETAL: No tenderness. No edema. DERMATOLOGIC: No skin rash. NEUROLOGIC: Alert and awake and oriented x3. No focal neurologic deficits. Moving all the extremities. PSYCHIATRIC: Mood and affect normal. LABORATORY DATA: Not done today. ASSESSMENT AND PLAN: 1. End-stage renal disease. Continue dialysis as tolerated. 2. Hypertension. 3. Edema. 4. Anemia. 5. Morbid obesity. Plan to continue dialysis as tolerated. Job ID: [id number]
[2019-02-22] MEDS: rOPINIRole HCl 2 MG TAB PO SCH (21:58)
[2019-02-22] MEDS: Atorvastatin Calcium 20 MG TAB PO SCH (21:58)
[2019-02-23] MEDS: Levothyroxine Sodium 88 MCG TAB PO SCH (05:58)
[2019-02-23] MEDS: HumaLOG 300 UNITS/3 ML VIAL SC PRN ×4 (05:58→22:59)
[2019-02-23] MEDS: Docusate 100 MG CAP PO SCH ×2 (07:48→22:58)
[2019-02-23] MEDS: Polyethylene Glycol 3350 17 GM Packet PO SCH (07:48)
[2019-02-23] MEDS: Nystatin 500,000 UNITS/5 ML UDCUP SSW SCH ×3 (08:28→22:58)
[2019-02-23] MEDS: Lactinex Tablet PO SCH ×2 (08:28→22:57)
[2019-02-23] MEDS: Famotidine 20 MG TAB PO SCH (08:29)
[2019-02-23] MEDS: predniSONE 20 MG TAB PO SCH (08:29)
[2019-02-23] MEDS: Gabapentin 100 MG CAP PO SCH ×3 (08:29→22:58)
[2019-02-23] MEDS: Clopidogrel Bisulfate 75 MG TAB PO SCH (08:29)
[2019-02-23] MEDS: Apixaban 5 MG TAB PO SCH ×2 (08:30→22:57)
[2019-02-23] MEDS: Sucralfate 1 GM TAB PO SCH ×4 (08:30→22:58)
[2019-02-23] MEDS: Midodrine HCl 5 MG TAB PO SCH ×3 (08:30→18:07)
[2019-02-23] MEDS: Clotrimazole 1 % Cream 30 GM TUBE TOP SCH (08:31)
--- NOTE | 2019-02-23 09:08 | PRG ---
DATE OF SERVICE: 02/23/2019 SUBJECTIVE: Mr. Lyons is more somnolent today than he has been. OBJECTIVE: VITAL SIGNS: On exam, temperature is 97.7, pulse 96, blood pressure 136/90, and O2 sat 97%. HEENT: Unremarkable. NECK: No JVD. LUNGS: Poor air movement. CARDIAC: S1 and S2, regular. ABDOMEN: Soft. EXTREMITIES: Edematous. LABORATORY DATA: No labs were done today. So far, Case Management has not been able to find placement for this patient. ASSESSMENT: 1. Acute on chronic respiratory failure, requiring intermittent BiPAP. 2. Severe chronic obstructive pulmonary disease. 3. Chronic renal failure. PLAN: The patient is continuing 3 times weekly dialysis. His dialysis catheter has been removed from his neck and he is now being dialyzed through fistula. He receives midodrine for transient hypotension related to his dialysis. His overall prognosis remains poor. I will try to go down on his steroid dose from 40 mg prednisone a day to 30 mg prednisone a day. Job ID: [id number]
[2019-02-23] MEDS: EPOETIN ALFA-EPBX (ESRD) 10,000 UNIT/ML VIAL IVP SCH (09:16)
--- NOTE | 2019-02-23 14:00 | PRG ---
DATE OF SERVICE: 02/23/2019 SUBJECTIVE: This is a 58-year-old gentleman being seen for end-stage kidney disease. The patient denied nausea, vomiting, or chest pain. OBJECTIVE: GENERAL: On examination, the patient is awake and alert. VITAL SIGNS: Pulse 75, breathing 16, blood pressure was 83/49. GENERAL APPEARANCE AND MENTAL STATUS: Fair. HEAD/NECK: Normocephalic. Atraumatic. EYES: EOMI. No deformity. EARS: Clear. No ulcers. NOSE: Intact. No lesions. MOUTH: Clear. No discharge. THROAT: Clear. No exudate. LUNGS: Clear. No crackles. CARDIAC: S1, S2. No rub. ABDOMEN: Benign. Bowel sounds positive. GENITALIA/RECTUM: Que[place] absent. BACK/EXTREMITIES: Edema 0+. NEUROLOGICAL: Alert and motor intact. SKIN: LYMPHATICS: LABORATORY DATA: Labs reviewed. ASSESSMENT AND PLAN: 1. Stage 6 chronic kidney disease with significant hypotension. Overall, the patient's morbidity is really high. I would recommend palliative care or ethics consult. 2. Hypotension, multifactorial. 3. Anemia, stable. 4. Overall prognosis is extremely poor. Job ID: [id number]
--- NOTE | 2019-02-23 14:22 | PDOC.PN ---
- Subjective Encounter Start Date: 02/23/19 Encounter Start Time: 14:20 Subjective: Still SOB and grossly fluid overloaded. -: Dialysis today cannot be continued due to hypotension despite midodrine. -: Patient in fact recieved NSbolus due to intradialytic hypotension. - Objective Resuscitation Status - Order Detail: 02/12/19 16:57 Resuscitation Status Routine Resuscitation Status: DNAR: NO Resuscitation Discussed with: Patient at bedside Vital Signs & Weight: Vital Signs (12 hours) Temp Pulse Resp Pulse Ox 02/23/19 10:30 97.4 F L 02/23/19 10:02 94 24 H 93 L 02/23/19 07:37 97 02/23/19 07:12 97.7 F 02/23/19 06:23 93 L 02/23/19 06:21 100 19 93 L 02/23/19 03:49 97.3 F L Weight Admit Weight 325 lb Weight 331 lb 5.676 oz Most Recent Monitor Data Heart Rate from ECG 100 NIBP 83/49 NIBP BP-Mean 60 Respiration from ECG 20 SpO2 89 I&O: 02/22/19 02/23/19 02/24/19 06:59 06:59 06:59 Intake Total 840 840 Balance 840 840 Result Diagrams: 02/21/19 06:30 02/21/19 06:30 Additional Labs: Accuchecks 02/23/19 02/23/19 02/22/19 10:18 05:34 22:13 POC Glucose 191 H 238 H 227 H 02/22/19 02/22/19 19:45 16:14 POC Glucose 251 H 290 H Phys Exam - Physical Examination morbidly obese HEENT: moist MMs Short thick neck decreased air movements especially at the bases Cardiovascular: RRR morbidly obese with abdominal wall edema edema of the lower extremities noted Psychiatric: A&O x 3 Deviation from normal: dysphonia noted. Dx/Plan (1) Hypotension Status: Acute Comment: likely multifactoral, improved and off levophed. Still on midodrine. (2) Acute on chronic respiratory failure with hypoxia and hypercapnia Code(s): J96.21 - ACUTE AND CHRONIC RESPIRATORY FAILURE WITH HYPOXIA; J96.22 - ACUTE AND CHRONIC RESPIRATORY FAILURE WITH HYPERCAPNIA Status: Acute Comment : Bipap as needed (3) Volume overload Code(s): E87.70 - FLUID OVERLOAD, UNSPECIFIED Status: Acute Comment: UF as tolerated with HD. Limited due to hypotension. (4) CAD (coronary artery disease) Code(s): I25.10 - ATHSCL HEART DISEASE OF [place] CORONARY ARTERY W/O ANG PCTRS Status: Chronic Qualifiers: Coronary Disease-Associated Artery/Lesion type: [place] artery [place] vs. transplanted heart: [place] heart Associated angina: without angina Qualified Code(s): I25.10 - Atherosclerotic heart disease of [place] coronary artery without angina pectoris Comment: NSTEMI in 12/2018 (5) DM2 (diabetes mellitus, type 2) Status: Chronic Qualifiers: Diabetes mellitus complication detail: with chronic kidney disease Chronic kidney disease stage: on chronic dialysis Comment: (6) ESRD (end stage renal disease) on dialysis Code(s): N18.6 - END STAGE RENAL DISEASE; Z99.2 - DEPENDENCE ON RENAL DIALYSIS Status: Chronic (7) Morbid obesity due to excess calories Code(s): E66.01 - MORBID (SEVERE) OBESITY DUE TO EXCESS CALORIES Status: Chronic (8) Obesity hypoventilation syndrome Code(s): E66.2 - MORBID (SEVERE) OBESITY WITH ALVEOLAR HYPOVENTILATION Status : Chronic (9) Paroxysmal a-fib Code(s): I48.0 - PAROXYSMAL ATRIAL FIBRILLATION Status: Chronic Comment: on Eliquis (10) Hypothyroidism Code(s): E03.9 - HYPOTHYROIDISM, UNSPECIFIED Status: Acute (11) Chronic anticoagulation Code(s): Z79.01 - STRE[facility] (CURRENT) USE OF ANTICOAGULANTS Status: Acute (12) Dysphagia Code(s): R13.10 - DYSPHAGIA, UNSPECIFIED Status: Acute Comment: weak voice, working with speech therapy (13) Hypophosphatemia Code(s): E83.39 - OTHER DISORDERS OF PHOSPHORUS METABOLISM Status: Acute (14) Mild epistaxis Code(s): R04.0 - EPISTAXIS Status: Acute - Plan Dialysis could not be performed due to hypotension. -: Care plan and goals of care are questionable. -: Will consult ethics and palliative care to help with direction. * .
[2019-02-23 14:34] LABS: Hemoglobin 10.9 g/dL (14.0-18.0)
[2019-02-23] MEDS: Acetaminophen 325 MG TAB PO PRN (15:12)
[2019-02-23] MEDS: rOPINIRole HCl 2 MG TAB PO SCH (22:57)
[2019-02-23] MEDS: Atorvastatin Calcium 20 MG TAB PO SCH (22:58)
[2019-02-24] MEDS: Clotrimazole 1 % Cream 30 GM TUBE TOP SCH ×3 (05:18→20:05)
[2019-02-24] MEDS: Polyethylene Glycol 3350 17 GM Packet PO SCH ×3 (05:19→20:04)
[2019-02-24] MEDS: Levothyroxine Sodium 88 MCG TAB PO SCH (06:02)
[2019-02-24] MEDS: HumaLOG 300 UNITS/3 ML VIAL SC PRN ×4 (06:02→20:26)
[2019-02-24] MEDS: Sucralfate 1 GM TAB PO SCH ×4 (08:36→20:03)
[2019-02-24] MEDS: Nystatin 500,000 UNITS/5 ML UDCUP SSW SCH ×3 (08:36→20:03)
[2019-02-24] MEDS: predniSONE 20 MG TAB PO SCH (08:36)
[2019-02-24] MEDS: Midodrine HCl 5 MG TAB PO SCH ×3 (08:36→17:21)
[2019-02-24] MEDS: Gabapentin 100 MG CAP PO SCH ×3 (08:36→20:03)
[2019-02-24] MEDS: Lactinex Tablet PO SCH ×2 (08:37→20:03)
[2019-02-24] MEDS: Clopidogrel Bisulfate 75 MG TAB PO SCH (08:37)
[2019-02-24] MEDS: Famotidine 20 MG TAB PO SCH (08:37)
[2019-02-24] MEDS: Apixaban 5 MG TAB PO SCH ×2 (08:37→20:03)
[2019-02-24] MEDS: Docusate 100 MG CAP PO SCH ×2 (08:38→20:03)
--- NOTE | 2019-02-24 11:11 | PDOC.PN ---
- Subjective Encounter Start Date: 02/24/19 Encounter Start Time: 11:10 Patient seen and examined, no new issues or complaints. No family at bedside. - Objective Resuscitation Status - Order Detail: 02/12/19 16:57 Resuscitation Status Routine Resuscitation Status: DNAR: NO Resuscitation Discussed with: Patient at bedside Vital Signs & Weight: Vital Signs (12 hours) Temp Pulse Resp Pulse Ox 02/24/19 11:03 97 22 H 100 02/24/19 07:47 101 H 28 H 95 02/24/19 07:46 98 02/24/19 07:28 97.6 F 02/24/19 03:45 98.0 F 02/23/19 23:30 97.4 F L Weight Admit Weight 325 lb Weight 330 lb 11.094 oz Most Recent Monitor Data Heart Rate from ECG 94 NIBP 92/67 NIBP BP-Mean 75 Respiration from ECG 27 SpO2 95 I&O: 02/23/19 02/24/19 02/25/19 06:59 06:59 06:59 Intake Total 840 600 Balance 840 600 Result Diagrams: 02/23/19 14:16 02/21/19 06:30 Additional Labs: Accuchecks 02/24/19 02/24/19 02/23/19 10:38 05:34 20:25 POC Glucose 210 H 196 H 227 H 02/23/19 16:27 POC Glucose 255 H Phys Exam - Physical Examination Constitutional: NAD morbidly obese HEENT: PERRLA, moist MMs, sclera anicteric Neck: no nodes, no JVD, supple Respiratory: no wheezing, no rales, no rhonchi Cardiovascular: RRR, no significant murmur, no rub Gastrointestinal: soft, non-tender, no distention, positive bowel sounds Musculoskeletal: pulses present, edema present Dx/Plan (1) Anemia of renal disease Code(s): D63.1 - ANEMIA IN CHRONIC KIDNEY DISEASE Status: Chronic Comment: stable (2) CAD (coronary artery disease) Code(s): I25.10 - ATHSCL HEART DISEASE OF [place] CORONARY ARTERY W/O ANG PCTRS Status: Chronic Qualifiers: Coronary Disease-Associated Artery/Lesion type: [place] artery [place] vs. transplanted heart: [place] heart Associated angina: without angina Qualified Code(s): I25.10 - Atherosclerotic heart disease of [place] coronary artery without angina pectoris Comment: NSTEMI in 12/2018 (3) COPD (chronic obstructive pulmonary disease) Status: Chronic (4) DM2 (diabetes mellitus, type 2) Status: Chronic Qualifiers: Diabetes mellitus complication detail: with chronic kidney disease Chronic kidney disease stage: on chronic dialysis Comment: (5) ESRD (end stage renal disease) on dialysis Code(s): N18.6 - END STAGE RENAL DISEASE; Z99.2 - DEPENDENCE ON RENAL DIALYSIS Status: Chronic (6) Hypertension Code(s): I10 - ESSENTIAL (PRIMARY) HYPERTENSION Status: Chronic Qualifiers: Hypertension type: essential hypertension Qualified Code(s): I10 - Essential (primary) hypertension (7) Lymphedema Code(s): I89.0 - LYMPHEDEMA, NOT ELSEWHERE CLASSIFIED Status: Chronic (8) Morbid obesity due to excess calories Code(s): E66.01 - MORBID (SEVERE) OBESITY DUE TO EXCESS CALORIES Status: Chronic (9) Obesity hypoventilation syndrome Code(s): E66.2 - MORBID (SEVERE) OBESITY WITH ALVEOLAR HYPOVENTILATION Status : Chronic - Plan * cont HD inpatient per renal * placement pending, appears to be more and more difficult as time goes on * CM working on this * cont current plan of care without any changes * case and plan d/w patient at [facility], he understood and agreed with this plan.
--- NOTE | 2019-02-24 11:57 | PRG ---
DATE OF SERVICE: 02/24/2019 SUBJECTIVE: Edmundo Lyons is a morbidly obese gentleman. This morning, he is awake and more responsive. Denies pain, discomfort, slightly hoarse. OBJECTIVE: VITAL SIGNS: Sats are 100% on 2 L, respiratory rate 22, pulse 97, blood pressure 92/65. CHEST: Decreased breath sounds. CARDIAC: Normal S1, S2. No gallops. ABDOMEN: No masses. IMPRESSION: 1. Morbid obesity. 2. Sleep apnea. 3. Respiratory failure. 4. Chronic obstructive pulmonary disease. 5. Severe deconditioning. PLAN: Try to get placement for the gentleman. Otherwise, continue neb treatments, supportive care. BiPAP as tolerated. Job ID: [id number]
--- NOTE | 2019-02-24 14:36 | PRG ---
DATE OF SERVICE: 02/24/2019 SUBJECTIVE: A 58-year-old gentleman, being seen for end-stage kidney disease. The patient remains hypotensive. Denies any complaints. OBJECTIVE: GENERAL: On examination, the patient is awake and alert. VITAL SIGNS: Afebrile, pulse 113, breathing 16, and blood pressure 82/58. GENERAL APPEARANCE AND MENTAL STATUS: Fair. HEAD/NECK: Normocephalic. Atraumatic. EYES: EOMI. No deformity. EARS: Clear. No ulcers. NOSE: Intact. No lesions. MOUTH: Clear. No discharge. THROAT: Clear. No exudate. LUNGS: Clear. No crackles. CARDIAC: S1, S2. No rub. ABDOMEN: Benign. Bowel sounds positive. GENITALIA/RECTUM: Que[place] absent. BACK/EXTREMITIES: Lower extremities show edema and ulcers. NEUROLOGICAL: Alert and motor intact. SKIN: LYMPHATICS: LABORATORY DATA: Labs show hemoglobin 10.9. ASSESSMENT AND PLAN: 1. Stage 6 chronic kidney disease. No indication for dialysis today. Prognosis is poor due to low blood pressure. Ethics consult noted hypotension. Management per primary team. 2. Anemia, stable. 3. Medication based on GFR appropriate. Job ID: [id number]
[2019-02-24] MEDS: Acetaminophen 325 MG TAB PO PRN (15:43)
[2019-02-24] MEDS: Ondansetron PF 4 MG/2 ML Vial IVP PRN (20:02)
[2019-02-24] MEDS: Atorvastatin Calcium 20 MG TAB PO SCH (20:03)
[2019-02-24] MEDS: rOPINIRole HCl 2 MG TAB PO SCH (20:04)
[2019-02-25] MEDS: Sucralfate 1 GM TAB PO SCH ×4 (06:31→21:36)
[2019-02-25] MEDS: HumaLOG 300 UNITS/3 ML VIAL SC PRN ×4 (06:31→21:38)
[2019-02-25] MEDS: Levothyroxine Sodium 88 MCG TAB PO SCH (06:31)
[2019-02-25] MEDS: Nystatin 500,000 UNITS/5 ML UDCUP SSW SCH ×3 (08:59→21:36)
[2019-02-25] MEDS: Midodrine HCl 5 MG TAB PO SCH ×3 (08:59→17:25)
[2019-02-25] MEDS: Clopidogrel Bisulfate 75 MG TAB PO SCH (09:00)
[2019-02-25] MEDS: predniSONE 20 MG TAB PO SCH (09:00)
[2019-02-25] MEDS: Famotidine 20 MG TAB PO SCH (09:00)
[2019-02-25] MEDS: Lactinex Tablet PO SCH ×2 (09:00→21:36)
[2019-02-25] MEDS: Apixaban 5 MG TAB PO SCH ×2 (09:00→21:35)
[2019-02-25] MEDS: Docusate 100 MG CAP PO SCH ×2 (09:00→21:41)
[2019-02-25] MEDS: Clotrimazole 1 % Cream 30 GM TUBE TOP SCH ×2 (09:01→21:37)
[2019-02-25] MEDS: Polyethylene Glycol 3350 17 GM Packet PO SCH ×2 (09:01→21:00)
[2019-02-25] MEDS: Gabapentin 100 MG CAP PO SCH ×3 (09:06→21:37)
--- NOTE | 2019-02-25 11:35 | PDOC.PN ---
- Subjective Encounter Start Date: 02/25/19 Encounter Start Time: 11:33 Patient seen and examined, no new issues. No family at bedside, all questions answered. - Objective Resuscitation Status - Order Detail: 02/12/19 16:57 Resuscitation Status Routine Resuscitation Status: DNAR: NO Resuscitation Discussed with: Patient at bedside Vital Signs & Weight: Vital Signs (12 hours) Temp Pulse Resp Pulse Ox 02/25/19 10:46 97.4 F L 02/25/19 07:42 95 02/25/19 07:11 98.0 F 02/25/19 06:50 95 02/25/19 06:45 112 H 13 95 02/25/19 04:12 97.3 F L 02/25/19 02:06 89 02/25/19 00:19 97.4 F L Weight Admit Weight 325 lb Weight 330 lb 11.094 oz Most Recent Monitor Data Heart Rate from ECG 94 NIBP 84/63 NIBP BP-Mean 70 Respiration from ECG 16 SpO2 95 I&O: 02/24/19 02/25/19 02/26/19 06:59 06:59 06:59 Intake Total 600 920 Output Total 0 Balance 600 920 Result Diagrams: 02/23/19 14:16 02/21/19 06:30 Additional Labs: Accuchecks 02/25/19 02/25/19 02/24/19 10:16 06:02 19:57 POC Glucose 188 H 225 H 241 H 02/24/19 16:44 POC Glucose 247 H Phys Exam - Physical Examination Constitutional: NAD obese HEENT: PERRLA, moist MMs, sclera anicteric Neck: no nodes, no JVD, supple Respiratory: no wheezing, no rales, no rhonchi Cardiovascular: RRR, no significant murmur, no rub Gastrointestinal: soft, non-tender, no distention, positive bowel sounds Musculoskeletal: pulses present, edema present (trace) Dx/Plan (1) Anemia of renal disease Code(s): D63.1 - ANEMIA IN CHRONIC KIDNEY DISEASE Status: Chronic Comment: stable (2) CAD (coronary artery disease) Code(s): I25.10 - ATHSCL HEART DISEASE OF [place] CORONARY ARTERY W/O ANG PCTRS Status: Chronic Qualifiers: Coronary Disease-Associated Artery/Lesion type: [place] artery [place] vs. transplanted heart: [place] heart Associated angina: without angina Qualified Code(s): I25.10 - Atherosclerotic heart disease of [place] coronary artery without angina pectoris Comment: NSTEMI in 12/2018 (3) COPD (chronic obstructive pulmonary disease) Status: Chronic (4) DM2 (diabetes mellitus, type 2) Status: Chronic Qualifiers: Diabetes mellitus complication detail: with chronic kidney disease Chronic kidney disease stage: on chronic dialysis Comment: (5) ESRD (end stage renal disease) on dialysis Code(s): N18.6 - END STAGE RENAL DISEASE; Z99.2 - DEPENDENCE ON RENAL DIALYSIS Status: Chronic (6) Hypertension Code(s): I10 - ESSENTIAL (PRIMARY) HYPERTENSION Status: Chronic Qualifiers: Hypertension type: essential hypertension Qualified Code(s): I10 - Essential (primary) hypertension (7) Lymphedema Code(s): I89.0 - LYMPHEDEMA, NOT ELSEWHERE CLASSIFIED Status: Chronic (8) Morbid obesity due to excess calories Code(s): E66.01 - MORBID (SEVERE) OBESITY DUE TO EXCESS CALORIES Status: Chronic (9) Obesity hypoventilation syndrome Code(s): E66.2 - MORBID (SEVERE) OBESITY WITH ALVEOLAR HYPOVENTILATION Status : Chronic - Plan * pending placement * no change in plan of care * HD per renal
--- NOTE | 2019-02-25 11:43 | PRG ---
DATE OF SERVICE: 02/25/2019 SUBJECTIVE: This morning, he is lethargic, but arousable. He wore his BiPAP last night. He has a single blood culture of Pseudomonas growing from his venous left arm. His neck is also growing Pseudomonas sensitive to the pretty much all the antibiotics. OBJECTIVE: VITAL SIGNS: Temperature 99, blood pressure 84/60, saturations are 98% on 2 L, respiratory rate 18. CHEST: Decreased breath sounds. No wheezing. CARDIAC: Normal S1, S2. No gallops. ABDOMEN: Massive. IMPRESSION: 1. Chronic obstructive pulmonary disease. 2. Respiratory failure. 3. Renal failure. 4. Morbid obesity. PLAN: Continue nocturnal BiPAP. I am empirically adding some antibiotics to regimes concerning he has Pseudomonas. We will follow. Job ID: [id number]
--- NOTE | 2019-02-25 13:23 | PRG ---
DATE OF SERVICE: 02/25/2019 SUBJECTIVE: A 58-year-old male being seen for end-stage renal disease. The patient denies any nausea, vomiting, or chest pain. OBJECTIVE: CONSTITUTIONAL: The patient is awake and alert. VITAL SIGNS: Afebrile, pulse 74, breathing 16, and blood pressure 84/63. GENERAL APPEARANCE AND MENTAL STATUS: Fair. HEAD/NECK: Normocephalic. Atraumatic. EYES: EOMI. No deformity. EARS: Clear. No ulcers. NOSE: Intact. No lesions. MOUTH: Clear. No discharge. THROAT: Clear. No exudate. LUNGS: Clear. No crackles. CARDIAC: S1, S2. No rub. ABDOMEN: Benign. Bowel sounds positive. GENITALIA/RECTUM: Que[place] absent. BACK/EXTREMITIES: Edema 0+. NEUROLOGICAL: Alert and motor intact. SKIN: Ulcers. LYMPHATICS: LABORATORY DATA: Reviewed. ASSESSMENT AND PLAN: 1. Chronic kidney disease. We will plan dialysis tomorrow on a trial basis. Prognosis is poor. 2. Hypertension, stable. 3. Anemia, stable. 4. Medication based on GFR appropriate. I would recommend hospice and the patient is thinking about it. Job ID: [id number]
[2019-02-25] MEDS: Cipro 250 MG TAB PO SCH (21:34)
[2019-02-25] MEDS: Atorvastatin Calcium 20 MG TAB PO SCH (21:35)
[2019-02-25] MEDS: rOPINIRole HCl 2 MG TAB PO SCH (21:36)
[2019-02-26] MEDS: Cipro 250 MG TAB PO SCH ×2 (06:50→20:18)
[2019-02-26] MEDS: Levothyroxine Sodium 88 MCG TAB PO SCH (06:50)
--- NOTE | 2019-02-26 10:04 | PRG ---
DATE OF SERVICE: 02/26/2019 SUBJECTIVE: Mr. Lyons is about the same. He has had no significant changes over the weekend. OBJECTIVE: VITAL SIGNS: Temperature 97.0, pulse 99, blood pressure 100/68, and O2 saturation 96%. HEENT: Unremarkable. NECK: No JVD. LUNGS: Poor air movement. CARDIAC: S1 and S2. Regular. ABDOMEN: Obese and soft. EXTREMITIES: No edema. ASSESSMENT: 1. Chronic hypoxic respiratory failure. 2. Chronic obstructive pulmonary disease. 3. Chronic renal failure. PLAN: Continuing BiPAP at night. Dr. Capellan has added antibiotics because of Pseudomonas that came out of a culture from a line in his neck, that line had to be left in because of inability to get IV access. The patient will complete 7 days of Cipro, then we will stop that. Job ID: [id number]
[2019-02-26] MEDS: EPOETIN ALFA-EPBX (ESRD) 10,000 UNIT/ML VIAL IVP SCH (10:36)
[2019-02-26] MEDS: Apixaban 5 MG TAB PO SCH ×2 (10:48→20:17)
[2019-02-26] MEDS: Sucralfate 1 GM TAB PO SCH ×4 (10:48→20:17)
[2019-02-26] MEDS: Clopidogrel Bisulfate 75 MG TAB PO SCH (10:49)
[2019-02-26] MEDS: Nystatin 500,000 UNITS/5 ML UDCUP SSW SCH ×3 (10:49→20:18)
[2019-02-26] MEDS: Lactinex Tablet PO SCH ×2 (10:49→20:17)
[2019-02-26] MEDS: Gabapentin 100 MG CAP PO SCH ×3 (10:50→20:18)
[2019-02-26] MEDS: Famotidine 20 MG TAB PO SCH (10:50)
[2019-02-26] MEDS: predniSONE 20 MG TAB PO SCH (10:50)
[2019-02-26] MEDS: Clotrimazole 1 % Cream 30 GM TUBE TOP SCH ×2 (10:51→20:18)
[2019-02-26] MEDS: Midodrine HCl 5 MG TAB PO SCH ×3 (10:51→17:07)
[2019-02-26] MEDS: Polyethylene Glycol 3350 17 GM Packet PO SCH ×2 (10:51→20:18)
[2019-02-26] MEDS: Docusate 100 MG CAP PO SCH ×2 (10:52→20:17)
--- NOTE | 2019-02-26 11:12 | PDOC.PN ---
- Subjective Encounter Start Date: 02/26/19 Encounter Start Time: 11:11 Patient seen and examined, no new issues. - Objective Resuscitation Status - Order Detail: 02/12/19 16:57 Resuscitation Status Routine Resuscitation Status: DNAR: NO Resuscitation Discussed with: Patient at bedside Vital Signs & Weight: Vital Signs (12 hours) Temp Pulse Resp Pulse Ox 02/26/19 11:10 96.8 F L 02/26/19 08:00 97 02/26/19 07:37 100 17 97 02/26/19 07:11 97.0 F L 02/26/19 07:00 97 02/26/19 04:08 97.3 F L 02/26/19 02:35 90 02/26/19 00:05 97.4 F L Weight Admit Weight 325 lb Weight 345 lb 14.484 oz Most Recent Monitor Data Heart Rate from ECG 99 NIBP 100/68 NIBP BP-Mean 78 Respiration from ECG 27 SpO2 96 I&O: 02/25/19 02/26/19 02/27/19 06:59 06:59 06:59 Intake Total 920 970 Output Total 0 0 Balance 920 970 Result Diagrams: 02/23/19 14:16 02/21/19 06:30 Additional Labs: Accuchecks 02/26/19 02/26/19 02/25/19 10:12 05:59 20:00 POC Glucose 156 H 168 H 220 H 02/25/19 16:07 POC Glucose 189 H Phys Exam - Physical Examination Constitutional: NAD (obese) HEENT: PERRLA, moist MMs, sclera anicteric Neck: no nodes, no JVD, supple Respiratory: no wheezing, no rales, no rhonchi Cardiovascular: RRR, no significant murmur, no rub Gastrointestinal: soft, non-tender, no distention, positive bowel sounds Musculoskeletal: pulses present, edema present Dx/Plan (1) Anemia of renal disease Code(s): D63.1 - ANEMIA IN CHRONIC KIDNEY DISEASE Status: Chronic Comment: stable (2) CAD (coronary artery disease) Code(s): I25.10 - ATHSCL HEART DISEASE OF [place] CORONARY ARTERY W/O ANG PCTRS Status: Chronic Qualifiers: Coronary Disease-Associated Artery/Lesion type: [place] artery [place] vs. transplanted heart: [place] heart Associated angina: without angina Qualified Code(s): I25.10 - Atherosclerotic heart disease of [place] coronary artery without angina pectoris Comment: NSTEMI in 12/2018 (3) COPD (chronic obstructive pulmonary disease) Status: Chronic (4) DM2 (diabetes mellitus, type 2) Status: Chronic Qualifiers: Diabetes mellitus complication detail: with chronic kidney disease Chronic kidney disease stage: on chronic dialysis Comment: (5) ESRD (end stage renal disease) on dialysis Code(s): N18.6 - END STAGE RENAL DISEASE; Z99.2 - DEPENDENCE ON RENAL DIALYSIS Status: Chronic (6) Hypertension Code(s): I10 - ESSENTIAL (PRIMARY) HYPERTENSION Status: Chronic Qualifiers: Hypertension type: essential hypertension Qualified Code(s): I10 - Essential (primary) hypertension (7) Lymphedema Code(s): I89.0 - LYMPHEDEMA, NOT ELSEWHERE CLASSIFIED Status: Chronic (8) Morbid obesity due to excess calories Code(s): E66.01 - MORBID (SEVERE) OBESITY DUE TO EXCESS CALORIES Status: Chronic (9) Obesity hypoventilation syndrome Code(s): E66.2 - MORBID (SEVERE) OBESITY WITH ALVEOLAR HYPOVENTILATION Status : Chronic - Plan * pending placement * overall poor prognosis * DC once placement arranged * HD per renal
--- NOTE | 2019-02-26 13:01 | PRG ---
DATE OF SERVICE: 02/26/2019 SUBJECTIVE: A 58-year-old gentleman being seen for end-stage kidney disease. The patient denies any nausea, vomiting, or chest pain. OBJECTIVE: CONSTITUTIONAL: The patient is awake and alert. VITAL SIGNS: Pulse 60, breathing 16, blood pressure was 90/67. GENERAL APPEARANCE AND MENTAL STATUS: Fair. HEAD/NECK: Normocephalic. Atraumatic. EYES: EOMI. No deformity. EARS: Clear. No ulcers. NOSE: Intact. No lesions. MOUTH: Clear. No discharge. THROAT: Clear. No exudate. LUNGS: Clear. No crackles. CARDIAC: S1, S2. No rub. ABDOMEN: Benign. Bowel sounds positive. GENITALIA/RECTUM: [place] absent. BACK/EXTREMITIES: Edema 0+. NEUROLOGICAL: Alert and motor intact. SKIN: LYMPHATICS: LABORATORY DATA: Labs reviewed. ASSESSMENT AND PLAN: 1. Stage 6 chronic kidney disease. The patient yesterday was on hospice, so we will not do dialysis after today. 2. Anemia, stable. 3. Medication based on GFR appropriate. Agree with hospice and palliative care. I will sign off on this patient. Please reconsult as needed. Job ID: [id number]
[2019-02-26] MEDS: Atorvastatin Calcium 20 MG TAB PO SCH (20:17)
[2019-02-26] MEDS: rOPINIRole HCl 2 MG TAB PO SCH (20:18)
[2019-02-26] MEDS: HumaLOG 300 UNITS/3 ML VIAL SC PRN (20:19)
[2019-02-27] MEDS: Cipro 250 MG TAB PO SCH ×2 (05:21→20:13)
[2019-02-27] MEDS: HumaLOG 300 UNITS/3 ML VIAL SC PRN ×3 (05:21→20:16)
[2019-02-27] MEDS: Levothyroxine Sodium 88 MCG TAB PO SCH (05:21)
--- NOTE | 2019-02-27 09:49 | PRG ---
DATE OF SERVICE: 02/27/2019 SUBJECTIVE: He is eating breakfast. He talks with a whisper, but is in no distress. OBJECTIVE: VITAL SIGNS: Temperature 98.1, pulse 106, respirations 24, O2 saturation 92%, and blood pressure 102/70. HEENT: Unremarkable. NECK: No JVD. LUNGS: Clear anteriorly. CARDIAC: S1, S2. Regular. ABDOMEN: Soft. EXTREMITIES: No edema. LABORATORY DATA: No labs were taken today. ASSESSMENT: 1. Chronic obstructive pulmonary disease-severe, but clinically stable. 2. Chronic renal failure requiring hemodialysis. PLAN: Awaiting placement. He will finish up 7 more days of Cipro for Pseudomonas found when his dialysis catheter was removed. Job ID: [id number]
[2019-02-27] MEDS: Nystatin 500,000 UNITS/5 ML UDCUP SSW SCH ×3 (10:30→20:14)
[2019-02-27] MEDS: Sucralfate 1 GM TAB PO SCH ×4 (10:30→20:14)
[2019-02-27] MEDS: Lactinex Tablet PO SCH ×2 (10:32→20:13)
[2019-02-27] MEDS: predniSONE 20 MG TAB PO SCH (10:32)
[2019-02-27] MEDS: Apixaban 5 MG TAB PO SCH ×2 (10:32→20:14)
[2019-02-27] MEDS: Famotidine 20 MG TAB PO SCH (10:32)
[2019-02-27] MEDS: Clopidogrel Bisulfate 75 MG TAB PO SCH (10:33)
[2019-02-27] MEDS: Polyethylene Glycol 3350 17 GM Packet PO SCH ×2 (10:33→20:15)
[2019-02-27] MEDS: Gabapentin 100 MG CAP PO SCH ×3 (10:33→20:14)
[2019-02-27] MEDS: Clotrimazole 1 % Cream 30 GM TUBE TOP SCH ×2 (10:34→20:15)
[2019-02-27] MEDS: Midodrine HCl 5 MG TAB PO SCH ×3 (10:35→17:32)
[2019-02-27] MEDS: Docusate 100 MG CAP PO SCH ×2 (10:39→20:14)
[2019-02-27] MEDS: rOPINIRole HCl 2 MG TAB PO SCH (20:13)
[2019-02-27] MEDS: Atorvastatin Calcium 20 MG TAB PO SCH (20:14)
--- NOTE | 2019-02-27 20:20 | PDOC.PN ---
- Subjective Encounter Start Date: 02/27/19 Encounter Start Time: 11:45 Subjective: pt up in bed complains of sob - Objective Resuscitation Status - Order Detail: 02/12/19 16:57 Resuscitation Status Routine Resuscitation Status: DNAR: NO Resuscitation Discussed with: Patient at bedside Vital Signs & Weight: Vital Signs (12 hours) Temp Pulse Resp Pulse Ox 02/27/19 19:24 97.6 F 02/27/19 18:36 113 H 22 H 95 02/27/19 15:19 97.4 F L 02/27/19 14:09 113 H 24 H 96 02/27/19 10:48 120 H 21 H 98 Weight Admit Weight 325 lb Weight 345 lb 14.484 oz Most Recent Monitor Data Heart Rate from ECG 120 NIBP 96/70 NIBP BP-Mean 78 Respiration from ECG 27 SpO2 93 I&O: 02/26/19 02/27/19 02/28/19 06:59 06:59 06:59 Intake Total 970 485 Output Total 0 Balance 970 485 Result Diagrams: 02/23/19 14:16 02/21/19 06:30 Additional Labs: Accuchecks 02/27/19 02/27/19 02/27/19 19:49 16:44 10:44 POC Glucose 251 H 272 H 252 H 02/27/19 02/26/19 05:18 20:13 POC Glucose 221 H 219 H Phys Exam - Physical Examination Neck: no nodes, no JVD, supple, full ROM Respiratory: no wheezing Cardiovascular: RRR, no significant murmur, no rub, gallop, irregular Gastrointestinal: soft, non-tender, no distention, positive bowel sounds Dx/Plan (1) Acute on chronic respiratory failure with hypoxia and hypercapnia Code(s): J96.21 - ACUTE AND CHRONIC RESPIRATORY FAILURE WITH HYPOXIA; J96.22 - ACUTE AND CHRONIC RESPIRATORY FAILURE WITH HYPERCAPNIA Status: Acute Comment : Bipap as needed (2) CAD (coronary artery disease) Code(s): I25.10 - ATHSCL HEART DISEASE OF [place] CORONARY ARTERY W/O ANG PCTRS Status: Chronic Qualifiers: Coronary Disease-Associated Artery/Lesion type: [place] artery [place] vs. transplanted heart: [place] heart Associated angina: without angina Qualified Code(s): I25.10 - Atherosclerotic heart disease of [place] coronary artery without angina pectoris Comment: NSTEMI in 12/2018 (3) Pseudomonal bacteremia Code(s): R78.81 - BACTEREMIA Status: Resolved Comment: s/p full course of treatment with Cefepime - Plan will continue abx for now for another 7 days -: s/p dialysis cath removed -: awaiting placement * . Review of Systems - Review of Systems Respiratory: Shortness of Breath Cardiovascular: negative: chest pain, palpitations, orthopnea, paroxysmal nocturnal dyspnea, edema, light headedness, other Gastrointestinal: negative: Nausea, Vomiting, Abdominal Pain, Diarrhea, Constipation, Melena, Hematochezia, Other - Medications/Allergies Allergies/Adverse Reactions: Allergies Allergy/AdvReac Type Severity Reaction Status Date / Time quinapril HCl [From Accupril] Allergy Verified 11/05/18 03:21 Medications: Current Medications Acetaminophen (Tylenol) 650 mg PO Q6H PRN PRN Reason: Mild Pain (1-3) Last Admin: 02/24/19 15:43 Dose: 650 mg Acidophilus (Floranex) 1 tab PO BID [facility] Last Admin: 02/27/19 20:13 Dose: 1 tab Albuterol/Ipratropium (Duoneb) 3 ml NEB QID-RT [facility] Last Admin: 02/27/19 18:36 Dose: 3 ml Apixaban (Eliquis) 5 mg PO BID [facility] Last Admin: 02/27/19 20:14 Dose: 5 mg Atorvastatin Calcium (Lipitor) 20 mg PO HS [facility] Last Admin: 02/27/19 20:14 Dose: 20 mg Bisacodyl (Dulcolax) 10 mg PO DAILYPRN PRN PRN Reason: Constipation Cholecalciferol (Vitamin D3) 4,000 units PO DAILY [facility] Last Admin: 02/27/19 10:39 Dose: 4,000 units Ciprofloxacin (Cipro) 250 mg PO BID@0600,2000 [facility] Last Admin: 02/27/19 20:13 Dose: 250 mg Clopidogrel Bisulfate (Plavix) 75 mg PO DAILY [facility] Last Admin: 02/27/19 10:33 Dose: 75 mg Clotrimazole (Lotrimin 1% Cream) 0 gm TOP BID [facility] Last Admin: 02/27/19 20:15 Dose: 1 applic Dextrose/Water (Dextrose 50%) 25 gm SLOW IVP PRN PRN PRN Reason: Hypoglycemia Docusate Sodium (Colace) 100 mg PO BID [facility] Last Admin: 02/27/19 20:14 Dose: Not Given Famotidine (Pepcid) 20 mg PO DAILY [facility] Last Admin: 02/27/19 10:32 Dose: 20 mg Gabapentin (Neurontin) 100 mg PO TID [facility] Last Admin: 02/27/19 20:14 Dose: 100 mg Glucagon (Glucagon) 1 mg IM PRN PRN PRN Reason: Hypoglycemia Guaifenesin/Dextromethorphan (Robitussin Dm) 15 ml PO Q4H PRN PRN Reason: Cough Dextrose/Water (D5w) 1,000 mls @ 0 mls/hr IV .Q0M PRN PRN Reason: Hypoglycemia Insulin Human Lispro (Humalog) 0 units SC .MILD SLIDING SCALE PRN PRN Reason: Mild Correctional Scale Last Admin: 02/27/19 17:38 Dose: 4 units Insulin Human Lispro (Humalog) 0 units SC .BEDTIME SLIDING SC PRN PRN Reason: Bedtime Correctional Scale Last Admin: 02/27/19 20:16 Dose: 3 unit Ipratropium [place] (Atrovent) 2.5 ml NEB Q12H PRN PRN Reason: SOB &/or Wheezing Levothyroxine Sodium (Synthroid) 88 mcg PO 0630 [facility] Last Admin: 02/27/19 05:21 Dose: 88 mcg Midodrine (Proamatine) 15 mg PO TID[facility] Last Admin: 02/27/19 17:32 Dose: 15 mg Nystatin (Mycostatin Powder) 0 gm TOP BIDPRN PRN PRN Reason: SKIN RASH Last Admin: 02/09/19 21:33 Dose: 1 applic Nystatin (Mycostatin) 500,000 units SSW TID [facility] Last Admin: 02/27/19 20:14 Dose: 500,000 units Ondansetron HCl (Zofran Odt) 4 mg PO Q6H PRN PRN Reason: Nausea/Vomiting Last Admin: 02/19/19 16:38 Dose: 4 mg Ondansetron HCl (Zofran) 4 mg IVP Q6H PRN PRN Reason: Nausea/Vomiting Last Admin: 02/24/19 20:02 Dose: 4 mg Polyethylene Glycol (Miralax) 17 gm PO BID [facility] Last Admin: 02/27/19 20:15 Dose: Not Given Prednisone (Prednisone) 30 mg PO DAILY [facility] Last Admin: 02/27/19 10:32 Dose: 30 mg Ropinirole HCl (Requip) 4 mg PO HS [facility] Last Admin: 02/27/19 20:13 Dose: 4 mg Sertraline HCl (Zoloft) 25 mg PO DAILY [facility] Last Admin: 02/27/19 10:33 Dose: 25 mg Sodium Chloride (Flush - Normal Saline) 10 ml IVF PRN PRN PRN Reason: Saline Flush Last Admin: 02/26/19 20:20 Dose: 10 ml Sodium Chloride (Flush - Normal Saline) 10 ml IVF PRN PRN PRN Reason: Saline Flush Sucralfate (Carafate) 1 gm PO ACHS [facility] Last Admin: 02/27/19 20:14 Dose: 1 gm
[2019-02-28 04:55] LABS: #Eosinphils 0.1 thou/uL (0.0-0.7); #Lymphocytes 2.2 thou/uL (1.20-3.40); #Monocytes 0.5 thou/uL (0.11-0.59); #Neutrophils 12.4 thou/uL (1.40-6.50); %Basophils 0.2 % (0.0-1.0); %Eosinophils 0.7 % (0.0-10.0); %Lymphocytes 14.6 % (21.0-51.0); %Monocytes 3.5 % (0.0-10.0); Hemoglobin 10.1 g/dL (14.0-18.0); Mean Corpuscular HGB CONC 27.5 g/dL (32.0-36.0); Mean Corpuscular Hemoglobin 25.4 pg (27.0-31.0); Mean Corpuscular Volume 92.6 fL (78.0-98.0); Platelet Count 149 thou/uL (130-400); RBC Distribution Width 18.7 % (11.5-14.5); Red Blood Cell (RBC) Count 3.97 mill/uL (4.70-6.10); White Blood Cell (WBC) Count 15.3 thou/uL (4.8-10.8)
[2019-02-28 05:14] LABS: Anion Gap 18 mmol/L (10-20); BUN (Urea Nitrogen) 65 mg/dL (8.4-25.7); Calc. Creatinine Clearance 52 mL/min (70-130); Calcium 10.3 mg/dL (7.8-10.44); Carbon Dioxide 25 mmol/L (22-29); Chloride 95 mmol/L (98-107); Estimated GFR-MDRD 19; Glucose 330 mg/dL (70-105); Potassium 3.9 mmol/L (3.5-5.1); Sodium 134 mmol/L (136-145)
[2019-02-28] MEDS: Cipro 250 MG TAB PO SCH ×2 (06:16→20:06)
[2019-02-28] MEDS: Levothyroxine Sodium 88 MCG TAB PO SCH (06:16)
[2019-02-28] MEDS: HumaLOG 300 UNITS/3 ML VIAL SC PRN ×3 (06:17→20:07)
--- NOTE | 2019-02-28 08:34 | PRG ---
DATE OF SERVICE: 02/28/2019 SUBJECTIVE: Mr. Lyons is sitting up in bed, appears unchanged from yesterday. He is planning to enter hospice care. OBJECTIVE: VITAL SIGNS: Temperature 98.0, pulse 96, blood pressure 101/64. GENERAL: He appears disheveled. HEENT: Unremarkable. NECK: No JVD. LUNGS: Coarse breath sounds. CARDIAC: S1, S2. Regular. ABDOMEN: Soft. EXTREMITIES: Edematous. LABORATORY DATA: White blood cell count 15, hematocrit 36.8, and platelet count 149. Sodium 134, potassium 3.9, chloride 95, CO2 of 25, BUN 65, creatinine 3.4, glucose 330. ASSESSMENT: 1. End-stage renal disease requiring hemodialysis. 2. Chronic obstructive pulmonary disease, which is severe. PLAN: He is contemplating hospice. I am not sure he is fully committed to that. It sounds like that Nephrology Service has decided that he is no longer a candidate for dialysis, but I would not be surprised if he changes his mind on that. We will continue to follow. Job ID: [id number]
[2019-02-28] MEDS: Midodrine HCl 5 MG TAB PO SCH ×3 (08:35→16:36)
[2019-02-28] MEDS: Sucralfate 1 GM TAB PO SCH ×4 (08:35→20:06)
[2019-02-28] MEDS: Apixaban 5 MG TAB PO SCH ×2 (08:36→20:06)
[2019-02-28] MEDS: Famotidine 20 MG TAB PO SCH (08:37)
[2019-02-28] MEDS: Clopidogrel Bisulfate 75 MG TAB PO SCH (08:37)
[2019-02-28] MEDS: Gabapentin 100 MG CAP PO SCH ×3 (08:52→20:06)
[2019-02-28] MEDS: Lactinex Tablet PO SCH ×2 (08:54→20:06)
[2019-02-28] MEDS: Nystatin 500,000 UNITS/5 ML UDCUP SSW SCH ×3 (08:55→20:06)
[2019-02-28] MEDS: predniSONE 20 MG TAB PO SCH (08:57)
[2019-02-28] MEDS: Docusate 100 MG CAP PO SCH ×2 (12:37→20:07)
[2019-02-28] MEDS: Clotrimazole 1 % Cream 30 GM TUBE TOP SCH ×2 (12:37→20:06)
[2019-02-28] MEDS: EPOETIN ALFA-EPBX (ESRD) 10,000 UNIT/ML VIAL IVP SCH (12:41)
[2019-02-28] MEDS: Polyethylene Glycol 3350 17 GM Packet PO SCH ×2 (12:57→20:07)
--- NOTE | 2019-02-28 16:54 | PDOC.PN ---
- Subjective Encounter Start Date: 02/28/19 Encounter Start Time: 16:52 Decided not to the Hospice route today. He indicates it was for a specific reason, but cannot effectively communicate what that reason was. Too fatigued to write and a can't talk due to respiratory issues. - Objective Resuscitation Status - Order Detail: 02/12/19 16:57 Resuscitation Status Routine Resuscitation Status: DNAR: NO Resuscitation Discussed with: Patient at bedside Vital Signs & Weight: Vital Signs (12 hours) Temp Pulse Resp Pulse Ox 02/28/19 15:08 98.1 F 02/28/19 14:25 106 H 22 H 02/28/19 10:33 98.2 F 02/28/19 10:16 110 H 32 H 02/28/19 08:00 95 02/28/19 07:08 98.0 F 02/28/19 06:58 115 H 33 H Weight Admit Weight 325 lb Weight 345 lb 14.484 oz Most Recent Monitor Data Heart Rate from ECG 98 NIBP 98/60 NIBP BP-Mean 72 Respiration from ECG 25 SpO2 98 I&O: 02/27/19 02/28/19 03/01/19 06:59 06:59 06:59 Intake Total 485 480 Balance 485 480 Result Diagrams: 02/28/19 04:11 02/28/19 04:11 Additional Labs: Accuchecks 02/28/19 02/28/19 02/28/19 16:07 10:12 06:05 POC Glucose 242 H 238 H 284 H 02/27/19 19:49 POC Glucose 251 H Phys Exam - Physical Examination Morbidly obese. Somnolent. Awakens, but quickly back to sleep. Rhonchi. Upper airway noise. Cardiovascular: RRR, no significant murmur Gastrointestinal: soft, non-tender, no distention, positive bowel sounds BLE edema. Dx/Plan (1) Hypotension Status: Acute (2) Anemia of renal disease Code(s): D63.1 - ANEMIA IN CHRONIC KIDNEY DISEASE Status: Chronic Comment: stable (3) CAD (coronary artery disease) Code(s): I25.10 - ATHSCL HEART DISEASE OF [place] CORONARY ARTERY W/O ANG PCTRS Status: Chronic Qualifiers: Coronary Disease-Associated Artery/Lesion type: [place] artery [place] vs. transplanted heart: [place] heart Associated angina: without angina Qualified Code(s): I25.10 - Atherosclerotic heart disease of [place] coronary artery without angina pectoris Comment: NSTEMI in 12/2018 (4) COPD (chronic obstructive pulmonary disease) Status: Chronic (5) DM2 (diabetes mellitus, type 2) Status: Chronic Qualifiers: Diabetes mellitus complication detail: with chronic kidney disease Chronic kidney disease stage: on chronic dialysis Comment: (6) ESRD (end stage renal disease) on dialysis Code(s): N18.6 - END STAGE RENAL DISEASE; Z99.2 - DEPENDENCE ON RENAL DIALYSIS Status: Chronic (7) Hypertension Code(s): I10 - ESSENTIAL (PRIMARY) HYPERTENSION Status: Chronic Qualifiers: Hypertension type: essential hypertension Qualified Code(s): I10 - Essential (primary) hypertension (8) Morbid obesity due to excess calories Code(s): E66.01 - MORBID (SEVERE) OBESITY DUE TO EXCESS CALORIES Status: Chronic (9) Obesity hypoventilation syndrome Code(s): E66.2 - MORBID (SEVERE) OBESITY WITH ALVEOLAR HYPOVENTILATION Status : Chronic (10) Paroxysmal a-fib Code(s): I48.0 - PAROXYSMAL ATRIAL FIBRILLATION Status: Chronic - Plan * Unfortunately, this patient has multiple severe morbidities which result in endstage disease of the kidneys and lungs. He is minimally functional. He planned for hospice today. I was asked by palliative care about liberating his diet, which I did. He got a pizza. However, he has now changed his mind regarding hospice. * He has no good disposition options. * Continuing supportive care. * Palliative care team following. * Pulmonary service following. * Back to carb consistent diet.
[2019-02-28] MEDS: rOPINIRole HCl 2 MG TAB PO SCH (20:05)
[2019-02-28] MEDS: Atorvastatin Calcium 20 MG TAB PO SCH (20:06)
[2019-03-01] MEDS: Acetaminophen 325 MG TAB PO PRN ×2 (02:29→12:44)
[2019-03-01] MEDS: HumaLOG 300 UNITS/3 ML VIAL SC PRN ×4 (06:01→20:52)
[2019-03-01] MEDS: Levothyroxine Sodium 88 MCG TAB PO SCH (06:01)
[2019-03-01] MEDS: Cipro 250 MG TAB PO SCH ×2 (06:01→20:49)
--- NOTE | 2019-03-01 08:33 | PRG ---
DATE OF SERVICE: 03/01/2019 SUBJECTIVE: Mr. Lyons is sitting up in bed. He has been eating his breakfast. OBJECTIVE: VITAL SIGNS: His temperature is 97.0, pulse 108, blood pressure 102/75, O2 saturation 95% on nasal cannula. GENERAL: He appears chronically ill. HEENT: Unremarkable. NECK: No JVD. LUNGS: Coarse rhonchi. CARDIAC: S1 and S2. Regular. ABDOMEN: Soft. EXTREMITIES: Edematous from his knees downward. LABORATORY DATA: None were done today. ASSESSMENT: Mr. Lyons has several end-stage medical problems including chronic renal failure, chronic obstructive pulmonary disease, and generalized failure to thrive. PLAN: I have recommended to him that he allow the hospice people to do their jobs and help him out. I would agree with the other providers on this case that no amount of medical therapy is going to reverse his underlying diseases and comfort care should be his primary goal. Job ID: [id number]
[2019-03-01] MEDS: Sucralfate 1 GM TAB PO SCH ×4 (08:48→20:49)
[2019-03-01] MEDS: Lactinex Tablet PO SCH ×2 (08:49→20:49)
[2019-03-01] MEDS: Famotidine 20 MG TAB PO SCH (08:50)
[2019-03-01] MEDS: Clopidogrel Bisulfate 75 MG TAB PO SCH (08:50)
[2019-03-01] MEDS: Gabapentin 100 MG CAP PO SCH ×3 (08:51→20:49)
[2019-03-01] MEDS: Midodrine HCl 5 MG TAB PO SCH ×3 (08:51→16:22)
[2019-03-01] MEDS: predniSONE 20 MG TAB PO SCH (08:51)
[2019-03-01] MEDS: Apixaban 5 MG TAB PO SCH ×2 (08:51→20:49)
[2019-03-01] MEDS: Polyethylene Glycol 3350 17 GM Packet PO SCH ×2 (08:52→20:50)
[2019-03-01] MEDS: Nystatin 500,000 UNITS/5 ML UDCUP SSW SCH ×3 (08:52→20:50)
[2019-03-01] MEDS: Docusate 100 MG CAP PO SCH ×2 (08:52→20:49)
[2019-03-01] MEDS: Clotrimazole 1 % Cream 30 GM TUBE TOP SCH ×2 (08:56→20:50)
[2019-03-01 13:21] VITALS: BMI 54.1
--- NOTE | 2019-03-01 16:14 | PRG ---
DATE OF SERVICE: 03/01/2019 SUBJECTIVE: The patient denies any specific concerns. Presently, he admits to being just chronically tired. OBJECTIVE: VITAL SIGNS: Temperature is 97.2, pulse 100, respirations 21, on BiPAP. Saturations are 90% to 95% on BiPAP. BP 98/76. GENERAL APPEARANCE: The patient is supine in bed. He is currently being cleaned up by the nurses. The patient is perpetually somnolent. He will awaken with enough stimulus. He will have a delayed response to questions, not able really to speak much because of the work of breathing, but he is able to communicate with nods and such for the most part. He is morbidly obese. HEART: Regular rate and rhythm. LUNGS: Very diminished, partly compromised by his body habitus on exam. ABDOMEN: Substantially obese. He has significant skin fold irritation below the pannus. EXTREMITIES: Both lower extremities are slightly erythematous and dusky and appeared to be vascularly challenged. SKIN: Reveals the erythema over the feet. He also has area in the left neck, which is erythematous and a puncture site from looks like a possible prior line site with a little mucoid yellowish substance at the surface, this area is under continuous pressures. The patient is lying in bed with his head lying to the left side the majority of the time, and given his obesity, he has significant skin fold and skin on skin contact, they are keeping it moist. It is bandaged with 4x4 with an Op-Site over that. LABORATORY DATA: Blood sugars 215 to 330. IMPRESSION AND PLAN: 1. End-stage pulmonary disease due to chronic obstructive pulmonary disease and obesity with hypoventilation of obesity syndrome. The patient remains on BiPAP, still has borderline saturations and still appears to be working significantly to maintain normal breathing and oxygenation. Continuing on BiPAP, and Pulmonology is continuing to follow. 2. End-stage renal disease. The patient's blood pressure has been relatively low for a long period of time. He has been in the hospital now for a couple of months. He was shipped to [place], where they tried some other forms of dialysis type interventions and he was subsequently sent back here. He is not a candidate for any further dialysis at this time leading to an end-stage disease situation. 3. Coronary artery disease. 4. Diabetes mellitus. Blood sugars continue to run high, got off his normal diet yesterday, long enough to eat some pizza and back on a diabetic diet and sliding scale insulin. 5. Morbid obesity, unfortunately, compromising the patient's breathing and his functional status considerably. 6. Chronic anemia. 7. Disposition. This patient unfortunately is nonfunctional. He is essentially lying in bed, working maximally just to maintain his respiratory status. He is substantially obese and having some skin irritation of his skin folds. He has obtundation because of his respiratory status and his hypoventilation of obesity syndrome in spite of being on the BiPAP. He has end-stage renal disease without further significant options for dialysis. The patient is recommended to consider hospice options. He has agreed to hospice and then subsequently changed his mind. Palliative Care is following and currently there is a plan to have a meeting tomorrow at 10:00 in the morning with the Palliative Care Team, the patient's Hospice, the patient's MPOA and friend and Steve to reconsider the hospice route. Job ID: [id number]
[2019-03-01] MEDS: rOPINIRole HCl 2 MG TAB PO SCH (20:49)
[2019-03-01] MEDS: Atorvastatin Calcium 20 MG TAB PO SCH (20:50)
[2019-03-01 21:31] VITALS: BP 102/74
[2019-03-02] MEDS: HumaLOG 300 UNITS/3 ML VIAL SC PRN ×2 (06:22→11:16)
[2019-03-02] MEDS: Cipro 250 MG TAB PO SCH (06:35)
[2019-03-02] MEDS: Levothyroxine Sodium 88 MCG TAB PO SCH (06:35)
[2019-03-02] MEDS: Midodrine HCl 5 MG TAB PO SCH ×2 (07:53→11:15)
[2019-03-02] MEDS: Sucralfate 1 GM TAB PO SCH ×2 (07:53→11:15)
[2019-03-02] MEDS: predniSONE 20 MG TAB PO SCH (09:56)
[2019-03-02] MEDS: Lactinex Tablet PO SCH (09:56)
[2019-03-02] MEDS: Apixaban 5 MG TAB PO SCH (09:56)
[2019-03-02] MEDS: Clopidogrel Bisulfate 75 MG TAB PO SCH (09:57)
[2019-03-02] MEDS: Gabapentin 100 MG CAP PO SCH (09:57)
[2019-03-02] MEDS: Docusate 100 MG CAP PO SCH (09:57)
[2019-03-02] MEDS: Famotidine 20 MG TAB PO SCH (09:57)
[2019-03-02] MEDS: Polyethylene Glycol 3350 17 GM Packet PO SCH (09:57)
[2019-03-02] MEDS: Clotrimazole 1 % Cream 30 GM TUBE TOP SCH (09:58)
[2019-03-02] MEDS: Nystatin 500,000 UNITS/5 ML UDCUP SSW SCH (09:58)
[2019-03-02] MEDS: EPOETIN ALFA-EPBX (ESRD) 10,000 UNIT/ML VIAL IVP SCH (09:58)
--- NOTE | 2019-03-02 10:21 | PRG ---
DATE OF SERVICE: 03/02/2019 SUBJECTIVE: The patient is about the same, but no change overnight. OBJECTIVE: VITAL SIGNS: Temperature 97.2, pulse , blood pressure 130/79, and O2 saturation 100%. HEENT: Unremarkable. NECK: No JVD. LUNGS: Coarse rhonchi. CARDIAC: S1 and S2, regular. ABDOMEN: Obese. EXTREMITIES: Became developed edema. LABORATORY DATA: No labs were done today. ASSESSMENT: 1. End-stage chronic obstructive pulmonary disease. 2. End-stage renal failure - currently not on dialysis. PLAN: Awaiting further palliative care plans. I have reviewed the orders. His Cipro can be discontinued on the . Otherwise, he is continued on nebulization treatments and oxygen. Job ID: [id number]
[2019-03-02 10:57] VITALS: TEMP 97.9
== END 2019-03-02 15:00 | disposition hospice, inpatient (51) | DRG 314 ==
LOC: UNDOADMIN 14:16 → CCU 14:16 → CDU 14:16 → CCU 02-07 06:39 → IMCU/EMU 02-13 14:09
PROVIDERS: ADMIT Internal Medicine; ATTEND Internal Medicine
PROC: 5A09557 Assistance with Respiratory Ventilation, Greater than 96 Consecutive Hours, Continuous Positive Airway Pressure (ICD-10-PCS; principal; 2019-02-06)
PROC: 3E033XZ Introduction of Vasopressor into Peripheral Vein, Percutaneous Approach (ICD-10-PCS; 2019-02-06)
PROC: 5A1D70Z Performance of Urinary Filtration, Intermittent, Less than 6 Hours Per Day (ICD-10-PCS; 2019-02-07)
PROC: 5A1D70Z Performance of Urinary Filtration, Intermittent, Less than 6 Hours Per Day (ICD-10-PCS; 2019-02-09)
PROC: 5A1D70Z Performance of Urinary Filtration, Intermittent, Less than 6 Hours Per Day (ICD-10-PCS; 2019-02-12)
PROC: 5A1D70Z Performance of Urinary Filtration, Intermittent, Less than 6 Hours Per Day (ICD-10-PCS; 2019-02-14)
PROC: 5A1D70Z Performance of Urinary Filtration, Intermittent, Less than 6 Hours Per Day (ICD-10-PCS; 2019-02-16)
PROC: 5A1D70Z Performance of Urinary Filtration, Intermittent, Less than 6 Hours Per Day (ICD-10-PCS; 2019-02-19)
PROC: 5A1D70Z Performance of Urinary Filtration, Intermittent, Less than 6 Hours Per Day (ICD-10-PCS; 2019-02-23)
PROC: 5A1D70Z Performance of Urinary Filtration, Intermittent, Less than 6 Hours Per Day (ICD-10-PCS; 2019-02-26)
DX: I95.89 Other hypotension (principal); N18.6 End stage renal disease; J96.22 Acute and chronic respiratory failure with hypercapnia; J96.21 Acute and chronic respiratory failure with hypoxia; Z68.43 Body mass index [BMI] 50.0-59.9, adult; I13.2 Hypertensive heart and chronic kidney disease with heart failure and with stage 5 chronic kidney disease, or end stage renal disease; N25.81 Secondary hyperparathyroidism of renal origin; E66.2 Morbid (severe) obesity with alveolar hypoventilation; I50.32 Chronic diastolic (congestive) heart failure; Z66 Do not resuscitate; Z51.5 Encounter for palliative care; I25.10 Atherosclerotic heart disease of native coronary artery without angina pectoris; E03.9 Hypothyroidism, unspecified; E11.22 Type 2 diabetes mellitus with diabetic chronic kidney disease; D63.1 Anemia in chronic kidney disease; M19.90 Unspecified osteoarthritis, unspecified site; I25.2 Old myocardial infarction; D50.9 Iron deficiency anemia, unspecified; F41.9 Anxiety disorder, unspecified; J44.9 Chronic obstructive pulmonary disease, unspecified; R13.10 Dysphagia, unspecified; M10.9 Gout, unspecified; I48.0 Paroxysmal atrial fibrillation; E83.39 Other disorders of phosphorus metabolism; G47.33 Obstructive sleep apnea (adult) (pediatric); F32.9 Major depressive disorder, single episode, unspecified; Z91.14 Patient's other noncompliance with medication regimen; Z99.2 Dependence on renal dialysis; Z91.15 Patient's noncompliance with renal dialysis; Z87.440 Personal history of urinary (tract) infections; Z79.02 Long term (current) use of antithrombotics/antiplatelets; Z79.4 Long term (current) use of insulin; Z79.82 Long term (current) use of aspirin; Z79.899 Other long term (current) drug therapy; Z79.01 Long term (current) use of anticoagulants
CPT/HCPCS: 36415; 36416; 71045; 80048; 80053; 80069; 83735; 84100; 84134; 85014; 85018; 85025; 87040; 87070; 87077; 87149; 87186; 87205; 87340; 90935; 94640; 94660; A4216; G0257; J1644; J1720; J2405; J2997; J3490; J7070; J7512; J7620; P9047; Q0162; Q5105

== ENCOUNTER 2019-03-02 15:21 | Inpatient (IN) | payer OTHER ==
[2019-03-02 15:31] VITALS: BMI 54.0
[2019-03-02] MEDS ORDERED: Scopolamine 1.5 mg/72 hour Patch TOP PRN (16:04)
[2019-03-02] MEDS: Morphine 4 MG/ML VIAL SLOW IVP SCH (16:47)
[2019-03-03] MEDS: Lorazepam 2 MG/ML VIAL SLOW IVP SCH ×5 (01:23→20:52)
[2019-03-03] MEDS: Morphine 4 MG/ML VIAL SLOW IVP SCH ×7 (01:24→20:53)
[2019-03-03 07:56] VITALS: BP 90/75
[2019-03-04] MEDS: Morphine 4 MG/ML VIAL SLOW IVP SCH ×4 (01:03→16:34)
[2019-03-04] MEDS: Lorazepam 2 MG/ML VIAL SLOW IVP SCH ×3 (03:08→16:34)
[2019-03-04 07:05] VITALS: TEMP 97.3
--- NOTE | 2019-03-05 14:51 | DIS ---
DATE OF ADMISSION: 03/02/2019 DATE OF DISCHARGE: 03/04/2019 HISTORY: This 58-year-old gentleman was admitted to the inpatient hospice service, passed on March 04, 2019, at 3:01 p.m. The patient had progressive decline and was unable to do dialysis and was admitted to hospice for progressive decline and chronic failure to thrive with multiorgan failure. No complications were reported. The above findings were discussed with the patient's friends who were present. DISPOSITION: To [facility]. Job ID: [id number]
== END 2019-03-04 18:43 | disposition expired | DRG 951 ==
LOC: IMCU/EMU 15:21
PROVIDERS: ADMIT Internal Medicine Nephrology; ATTEND Internal Medicine Nephrology
DX: Z51.5 Encounter for palliative care (principal); N18.6 End stage renal disease; J96.22 Acute and chronic respiratory failure with hypercapnia; J96.21 Acute and chronic respiratory failure with hypoxia; I13.2 Hypertensive heart and chronic kidney disease with heart failure and with stage 5 chronic kidney disease, or end stage renal disease; I50.32 Chronic diastolic (congestive) heart failure; Z68.43 Body mass index [BMI] 50.0-59.9, adult; N25.81 Secondary hyperparathyroidism of renal origin; Z66 Do not resuscitate; I25.10 Atherosclerotic heart disease of native coronary artery without angina pectoris; J44.9 Chronic obstructive pulmonary disease, unspecified; I95.89 Other hypotension; E11.22 Type 2 diabetes mellitus with diabetic chronic kidney disease; R13.10 Dysphagia, unspecified; Z99.2 Dependence on renal dialysis; E03.9 Hypothyroidism, unspecified; E66.01 Morbid (severe) obesity due to excess calories; M19.90 Unspecified osteoarthritis, unspecified site; I48.91 Unspecified atrial fibrillation; F32.9 Major depressive disorder, single episode, unspecified; F41.9 Anxiety disorder, unspecified; D50.9 Iron deficiency anemia, unspecified; I25.2 Old myocardial infarction; Z87.440 Personal history of urinary (tract) infections; Z91.14 Patient's other noncompliance with medication regimen; Z91.15 Patient's noncompliance with renal dialysis; Z88.8 Allergy status to other drugs, medicaments and biological substances
CPT/HCPCS: J2060; J2270